=== PATIENT | female | born 1950 | race Caucasian/White ===

== ENCOUNTER 2016-12-04 11:50 | Emergency (ER) | payer OTHER ==
[~2016-12-04] VITALS: Ht 170.2 cm; Wt 123.7 kg
[~2016-12-04 11:50] MED LIST: FLUT0.15 NAE; FURO20TA PO; LAMO100T16 PO; LORA-741 PO; METO5TAB2 PO; ONDA4TAB10 PO; PANT40TA PO; POTA20TA13 PO; RANI-316 PO; ROPI1TAB PO; TPM100 PO
[2016-12-04 11:52] VITALS: TEMP 37; Ht 170.2 cm; Wt 123.7 kg
[2016-12-04] MEDS ORDERED: ONDANSETRON INJ 2 MG/ML 2 ML VIAL IV STA ×2 (12:25→12:43)
[2016-12-04 12:42] LABS: BASO % 0.5 %; BASO ABS # 0.04 K/uL (0-0.2); COMPLETE YES; EOS % 3.6 %; HEMATOCRIT 36.5 % (37-47); IG% 0.2 %; LYMPH % 20.2 %; LYMPH ABS # 1.64 K/uL (1.2-3.4); MEAN CELL VOLUME 86.1 fL (80-100); MEAN CORPUSCULAR HEMOGLOBIN 28.8 pg (25-34); MEAN CORPUSCULAR HGB CONC 33.4 g/dl (32-36); MEAN PLATELET VOLUME 10.8 fL (7.4-10.4); MONO % 8.3 %; NEUT % 67.2 %; PLATELET COUNT 204 K/uL (130-400); RED BLOOD COUNT 4.24 M/uL (4.2-5.4); WHITE BLOOD COUNT 8.11 K/uL (4.8-10.8)
[2016-12-04] MEDS ORDERED: SODIUM CHLORIDE 0.9% 1000ML 1,000 ML IV STA (12:43)
[2016-12-04] MEDS ORDERED: SODIUM CHLORIDE 0.9% 500ML 500 ML IV STA (12:43)
[2016-12-04] MEDS ORDERED: MoRPHine SULFATE 4 MG/ML 1 ML CARP\\VIAL IV PRN (12:45)
[2016-12-04 12:50] LABS: INR 1.1 (0.9-1.1); PARTIAL THROMBOPLASTIN RATIO 1.2; PROTHROMBIN TIME (PATIENT) 11.4 SECONDS (9.0-12.0)
[2016-12-04 12:51] LABS: BUN/CREATININE RATIO 11.3 (10-20); CALCIUM 8.8 mg/dl (8.5-10.1); CREATININE 1.4 mg/dl (0.60-1.20); POTASSIUM 3.5 mmol/L (3.5-5.1)
[2016-12-04 12:56] LABS: ALB/GLOB RATIO 1.3 (0.9-2)
--- NOTE | 2016-12-04 13:21 | DIAGNOSTIC IMAGING REPORT ---
CHEST ONE VIEW PORTABLE CLINICAL HISTORY: Shortness of breath. COMPARISON STUDY: Chest radiograph May 31, 2015. FINDINGS: There is an anterior cervical spine fusion. Upper abdominal surgical clips are noted. A hiatal hernia is suspected. Mild cardiomegaly is unchanged. There is no pneumothorax or pleural effusion. There is no evidence of pulmonary edema. IMPRESSION: 1. No acute findings. 2. Stable cardiomegaly. 3. Suspected hiatal hernia. 4. Mild interstitial thickening which is likely chronic. Electronically signed by: Hair Green M.D. 12/04/2016 1:19 PM Dictated Date/Time: 12/04/2016 1:17 PM
--- NOTE | 2016-12-04 13:52 | DIAGNOSTIC IMAGING REPORT ---
CT OF THE ABDOMEN AND PELVIS WITHOUT CONTRAST CLINICAL HISTORY: Abdominal pain. Blood in stool. Possible bowel obstruction. COMPARISON STUDY: Abdominal ultrasound August 12, [address] of the abdomen and pelvis December 29, 2014. TECHNIQUE: Axial images of the abdomen and pelvis were obtained without IV contrast. Images were reviewed in the axial, sagittal, and coronal planes. FINDINGS: The heart is moderately enlarged. A moderate sized hiatal hernia is noted. There are postsurgical findings within the upper abdomen. Evaluation of the abdomen and pelvis is suboptimal on this unenhanced exam. Unenhanced images of the liver, spleen, adrenal glands and pancreas are unremarkable. A 5 cm intermediate attenuation right renal lesion was shown to represent a cyst on prior ultrasound. A suspected 1.3 cm inferior right hepatic lobe cyst is unchanged. This is suboptimally assessed on this unenhanced exam. There is no evidence for a bowel obstruction. Apparent partial congenital malrotation is noted. There is no significant bowel obstruction. Multiple fat and fluid containing ventral hernias are present. These are shown on prior exam. There are post surgical finding within the spine. No suspicious osseous lesions are present. There is no lymphadenopathy. The gallbladder surgically absent. There is no significant biliary or pancreatic ductal dilatation. There is a moderate amount of stool within the right colon. IMPRESSION: 1. No acute process within the abdomen or pelvis although evaluation is compromised given the lack of IV and oral contrast. 2. Numerous fat and fluid containing ventral hernias which were shown on prior exam. No bowel obstruction. 3. Moderate sized hiatal hernia. Electronically signed by: Hair Green M.D. 12/04/2016 1:50 PM Dictated Date/Time: 12/04/2016 1:40 PM
[2016-12-04] MEDS ORDERED: HYDROmorphone INJ 2 MG/ML SYR/VIAL IV STA (14:10)
[2016-12-04] MEDS ORDERED: HYDROmorphone INJ 0.5 MG/0.5 ML SYR ONE ×2 (14:12→14:51)
[2016-12-04 14:56] VITALS: BP 133/90; PULSE 72; O2SAT 97
[2016-12-04] MEDS ORDERED: OXYC1TAB3 PO (15:21)
--- NOTE | 2016-12-04 16:56 | EMERGENCY ROOM VISIT NOTE ---
History Report prepared by Chiara: Samara Nuno Under the Supervision of: Dr. Xu Garcia M.D. First contact with patient: 12:39 Chief Complaint: GI ASSESSMENT Stated Complaint: BLOOD IN STOOL, STOMACH PAIN Nursing Triage Summary: pt reports noted BRB from rectum with BM on sat. pt reports started with abdominal pain at that time and this cont. denies NV History of Present Illness The patient is a 66 year old female who presents to the Emergency Room for evaluation after experiencing a movement of bright red blood after having a bowel movement 3 days prior to arrival. At the time of onset, the patient had just passed a bowel movement, consisting of regular brown stool, followed by a movement of bright red blood. Since that time, she has been experiencing constant pain to her midabdomen, which she rates as an 8/10. She has also felt nauseous, but she denies vomiting and she has not had any fevers, chills or dysuria. Since passing one movement of blood per rectum 3 days prior, patient states that she has been able to move her bowels 2 more times with regular, brown stool, and no further bleeding. However, as she has continued to experience the abdominal pain and nausea, she came to the ED for further evaluation. Patient denies recent fevers, chills, cough, chest pain, shortness of breath, or urinary symptoms. Patient is not currently on any blood thinning medications. She does take Protonix and Ranitidine HCl regularly. Source of History: patient Onset: 3 days prior to arrival Position: abdomen Symptom Intensity: 8/10 Timing: other (persistent) Associated Symptoms: + hematochezia, + nausea, No SOB, No chest pain, No chills, No diarrhea, No fevers, No urinary symptoms, No vomiting Review of Systems See HPI for pertinent positives & negatives. A total of 10 systems reviewed and were otherwise negative. 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 (16) Fall (17) Fracture of rib with routine healing (18) Gastroesophageal reflux disease (19) Gout (20) Hip pain (21) History of recent fall (22) Hyperlipidemia (23) Migraine (24) Neck pain (25) Rectal bleeding (26) renal insufficiency (27) Rib fractures (28) Seizure (29) Spinal stenosis (30) Sprain of knee (31) Status post fall (32) Unexplained night sweats Surgical Problems: (1) back surgery (2) Cholecystectomy (3) Hysterectomy (4) neck surgery Family History Cancer FHx: neurologic disorder Heart disease Hypertension Kidney disease Other kidney diseases Seizures Social History Smoking Status: Never Smoker Alcohol Use: none Drug Use: none Marital Status: single Housing Status: lives alone Occupation Status: retired Current/Historical Medications Scheduled Apixaban (Eliquis), 5 MG PO BID Docusate Sodium (Ra Col-Rite), 100 MG PO BID Furosemide (Lasix), 20 MG PO QAM Lamotrigine (Lamictal), 200 MG PO BID Lamotrigine (Lamotrigine), 100 MG PO BID Levetiractam (Levetiracetam), 500 MG PO BID Magnesium Oxide (Mag-Ox), 400 MG PO BID Metoclopramide Hcl (Metoclopramide Hcl), 5 MG PO BID Metoprolol Succinate (Metoprolol Succinate ER), 25 MG PO DAILY Multivitamin (Multivitamin), 1 TAB PO DAILY Pantoprazole Sodium (Protonix), 40 MG PO BID Potassium Chloride Microencaps (Potassium Chloride Er), 20 MEQ PO DAILY Ranitidine HCl (Ranitidine HCl), 150 MG PO DAILY Sulfa/Trimethoprim (Bactrim Ds 800MG/160MG), 1 TAB PO DAILY Topiramate (Topiramate), 100 MG PO BID Scheduled PRN Albuterol Hfa (Ventolin Hfa), 2 PUFFS PO UD PRN for SOB/Wheezing Albuterol Sulf (Proventil 0.083% 2.5MG/3ML), 1 DOSE NEB UD PRN for SOB/Wheezing Lorazepam (Ativan), 0.5 MG PO TID PRN for Anxiety Oxycodone Ir (Roxicodone Ir), 1-2 TAB PO Q4H PRN for Pain Allergies Coded Allergies: Adhesives (Verified Adverse Reaction, Unknown, ITCHY, 12/04/16) Physical Exam Vital Signs Date Time Temp Pulse Resp B/P Pulse Ox O2 Delivery O2 Flow Rate FiO2 12/04/16 14:56 72 18 133/90 97 Room Air 12/04/16 13:09 68 20 146/96 100 12/04/16 12:26 79 12/04/16 12:20 85 18 146/96 99 Room Air 12/04/16 11:52 37.0 98 18 183/95 95 Room Air Physical Exam GENERAL: Patient is in no acute distress. HEENT: No acute trauma, normocephalic atraumatic, mucous membranes moist, no nasal congestion, no scleral icterus. NECK: No stridor, no adenopathy, no meningismus, trachea is midline. LUNGS: Clear to auscultation bilaterally, no wheeze, no rhonchi, breath sounds equal. HEART: Irregular without any murmurs. Normal rate. ABDOMEN: Distended, soft, no peritonitis. There is a reducible umbilical hernia present. Tender in the epigastric area. Bowel sounds positive. RECTAL: Brown stool, heme positive. EXTREMITIES: No cyanosis or edema, full range of motion of all the joints without pain or difficulty, no signs for acute trauma. NEUROLOGIC: Oriented x 3, no acute motor or sensory deficits, no focal weakness. SKIN: No rash, no jaundice, no diaphoresis. Medical Decision & Procedures ER Provider Diagnostic Interpretation: X-ray results as stated below per interpretation by me and the radiologist: CHEST ONE VIEW PORTABLE CLINICAL HISTORY: Shortness of breath. COMPARISON STUDY: Chest radiograph May 31, 2015. FINDINGS: There is an anterior cervical spine fusion. Upper abdominal surgical clips are noted. A hiatal hernia is suspected. Mild cardiomegaly is unchanged. There is no pneumothorax or pleural effusion. There is no evidence of pulmonary edema. IMPRESSION: 1. No acute findings. 2. Stable cardiomegaly. 3. Suspected hiatal hernia. 4. Mild interstitial thickening which is likely chronic. Electronically signed by: Hair Green M.D. 12/04/2016 1:19 PM Dictated Date/Time: 12/04/2016 1:[address] OF THE ABDOMEN AND PELVIS WITHOUT CONTRAST CLINICAL HISTORY: Abdominal pain. Blood in stool. Possible bowel obstruction. COMPARISON STUDY: Abdominal ultrasound August 12, [address] of the abdomen and pelvis December 29, 2014. TECHNIQUE: Axial images of the abdomen and pelvis were obtained without IV contrast. Images were reviewed in the axial, sagittal, and coronal planes. FINDINGS: The heart is moderately enlarged. A moderate sized hiatal hernia is noted. There are postsurgical findings within the upper abdomen. Evaluation of the abdomen and pelvis is suboptimal on this unenhanced exam. Unenhanced images of the liver, spleen, adrenal glands and pancreas are unremarkable. A 5 cm intermediate attenuation right renal lesion was shown to represent a cyst on prior ultrasound. A suspected 1.3 cm inferior right hepatic lobe cyst is unchanged. This is suboptimally assessed on this unenhanced exam. There is no evidence for a bowel obstruction. Apparent partial congenital malrotation is noted. There is no significant bowel obstruction. Multiple fat and fluid containing ventral hernias are present. These are shown on prior exam. There are post surgical finding within the spine. No suspicious osseous lesions are present. There is no lymphadenopathy. The gallbladder surgically absent. There is no significant biliary or pancreatic ductal dilatation. There is a moderate amount of stool within the right colon. IMPRESSION: 1. No acute process within the abdomen or pelvis although evaluation is compromised given the lack of IV and oral contrast. 2. Numerous fat and fluid containing ventral hernias which were shown on prior exam. No bowel obstruction. 3. Moderate sized hiatal hernia. Electronically signed by: Hair Green M.D. 12/04/2016 1:50 PM Dictated Date/Time: 12/04/2016 1:40 PM Laboratory Results 12/04/16 12:15 Red Blood Count 4.24, Mean Corpuscular Volume 86.1, Mean Corpuscular Hemoglobin 28.8, Mean Corpuscular Hemoglobin Concent 33.4, Mean Platelet Volume 10.8, Neutrophils (%) (Auto) 67.2, Lymphocytes (%) (Auto) 20.2, Monocytes (%) (Auto) 8.3, Eosinophils (%) (Auto) 3.6, Basophils (%) (Auto) 0.5, Neutrophils # (Auto) 5.45, Lymphocytes # (Auto) 1.64, Monocytes # (Auto) 0.67, Eosinophils # (Auto) 0.29, Basophils # (Auto) 0.04 12/04/16 12:15 Test 12/04/16 12:15 White Blood Count 8.11 K/uL (4.8-10.8) Red Blood Count 4.24 M/uL (4.2-5.4) Hemoglobin 12.2 g/dL (12.0-16.0) Hematocrit 36.5 % (37-47) Mean Corpuscular Volume 86.1 fL (80-100) Mean Corpuscular Hemoglobin 28.8 pg (25-34) Mean Corpuscular Hemoglobin Concent 33.4 g/dl (32-36) Platelet Count 204 K/uL (130-400) Mean Platelet Volume 10.8 fL (7.4-10.4) Neutrophils (%) (Auto) 67.2 % Lymphocytes (%) (Auto) 20.2 % Monocytes (%) (Auto) 8.3 % Eosinophils (%) (Auto) 3.6 % Basophils (%) (Auto) 0.5 % Neutrophils # (Auto) 5.45 K/uL (1.4-6.5) Lymphocytes # (Auto) 1.64 K/uL (1.2-3.4) Monocytes # (Auto) 0.67 K/uL (0.11-0.59) Eosinophils # (Auto) 0.29 K/uL (0-0.5) Basophils # (Auto) 0.04 K/uL (0-0.2) RDW Standard Deviation 45.0 fL (36.4-46.3) RDW Coefficient of Variation 14.4 % (11.5-14.5) Immature Granulocyte % (Auto) 0.2 % Immature Granulocyte # (Auto) 0.02 K/uL (0.00-0.02) Prothrombin Time 11.4 SECONDS (9.0-12.0) Prothromb Time International Ratio 1.1 (0.9-1.1) Activated Partial Thromboplast Time 31.0 SECONDS (21.0-31.0) Partial Thromboplastin Ratio 1.2 Anion Gap 11.0 mmol/L (3-11) Est Creatinine Clear Calc Drug Dose 53.2 ml/min Estimated GFR () 44.9 Estimated GFR (Non- 38.8 BUN/Creatinine Ratio 11.3 (10-20) Calcium Level 8.8 mg/dl (8.5-10.1) Total Bilirubin 0.4 mg/dl (0.2-1) Aspartate Amino Transf (AST/SGOT) 9 U/L (15-37) Alanine Aminotransferase (ALT/SGPT) 15 U/L (12-78) Alkaline Phosphatase 104 U/L (45-117) Total Creatine Kinase 97 U/L (26-192) Creatine Kinase MB 1.9 ng/ml (0.5-3.6) Creatine Kinase MB Ratio 2.0 (0-3.0) Total Protein 7.4 gm/dl (6.4-8.2) Albumin 4.2 gm/dl (3.4-5.0) Globulin 3.2 gm/dl (2.5-4.0) Albumin/Globulin Ratio 1.3 (0.9-2) Lipase 223 U/L (73-393) Laboratory results reviewed by me. Medications Administered Medications (Trade) Dose Ordered Sig/Galileo Route Start Time Stop Time Status Last Admin Dose Admin Ondansetron HCl (Zofran Inj) 4 mg NOW STAT IV 12/04/16 12:25 12/04/16 12:30 DC 12/04/16 13:06 4 MG Morphine Sulfate 4 mg 4 mg Q15M PRN IV 12/04/16 12:45 12/04/16 16:15 DC 12/04/16 13:07 4 MG Sodium Chloride 500 ml @ 999 mls/hr Q31M STAT IV 12/04/16 12:43 12/04/16 13:13 DC 12/04/16 13:07 999 MLS/HR Sodium Chloride (Nss 1000ml) 1,000 ml @ 125 mls/hr Q8H STAT IV 12/04/16 12:43 12/04/16 16:15 DC 12/04/16 13:06 125 MLS/HR Hydromorphone HCl (Dilaudid Inj) 0.5 mg STK-MED ONCE .ROUTE 12/04/16 14:12 12/04/16 14:13 DC 12/04/16 14:12 0.5 MG Hydromorphone HCl (Dilaudid Inj) 0.5 mg STK-MED ONCE .ROUTE 12/04/16 14:51 12/04/16 14:52 DC 12/04/16 14:54 0.5 MG ECG Indication: abdominal pain Rate (beats per minute): 93 Rhythm: atrial fibrillation Findings: no acute ischemic change, no ectopy, other (Non-specific T wave change) ED Course 1240: The patient was evaluated in room B5. A complete history and physical exam was performed. 1225: Zofran 4 mg IV was ordered. 1243: NSS 1,000 ml @ 125 mls/hr IV, NSS 500 ml @ 999 mls/hr IV and Zofran 4 mg IV were ordered. 1245: Morphine Sulfate 4 mg IV was ordered. 1410: Upon reevaluation, the patient was having additional pain. Dilaudid 0.5 mg IV and Dilaudid 0.5 mg Route were ordered. 1451: Patient was still experiencing pain at this time. Dilaudid 0.5 mg Route was ordered. 1515: I reevaluated the patient at this time and she was feeling improved. She did not complain of any additional pain. I updated her on the results of her radiology reports and lab tests. Discharge instructions were also discussed. She verbalized her understanding and agreement with the treatment plan, and she is now ready for disposition. Medical Decision The patient is a 66 year old female who presents to the ED for evaluation after experiencing a movement of bright red blood per rectum 3 days prior to arrival. Differential diagnoses considered include hemorrhoid or anal tear, lower GI or upper GI bleeding, anemia, electrolyte imbalance, bowel obstruction, pancreatitis, diverticulitis, and viral illness. There is no leukocytosis or worrisome anemia. No significant electrolyte abnormality, kidney failure, hepatitis or pancreatitis. EKG shows A. fib, no acute ischemia. There is no coagulopathy. Chest x-ray does not show pneumonia or CHF, there is no free air. Abdominal and pelvis CT shows some chronic findings, there was no bowel obstruction or acute surgical pathology. The patient received IV saline, IV morphine and IV Dilaudid. She received IV Zofran for nausea. The patient is feeling improved. On rectal exam, her stool is brown, a trace heme positive result returned. No bright red blood was noted. The patient was adamant that she was not staying in the hospital. She felt better, she wanted to be discharged home. As she is hemodynamically stable, I do think this is reasonable. The patient was encouraged to return to the ER for any return of symptoms or worsening pain. She will return for fever or vomiting. Outpatient family doctor follow-up was suggested. [place] Drug Monitoring Program Search Results: patient reviewed within database, no issues identified Impression Primary Impression: Epigastric abdominal pain Additional Impression: Bloody stool Scribe Attestation The scribe's documentation has been prepared under my direction and personally reviewed by me in its entirety. I confirm that the note above accurately reflects all work, treatment, procedures, and medical decision making performed by me. Departure Information Dispostion Home / Self-Care Prescriptions Oxycodone Ir (Roxicodone Ir) 5 Mg Tab 1-2 TAB PO Q4H Y for Pain, #12 TAB Prov: Xu Garcia M.D. 12/04/16 Referrals No Doctor, Assigned (PCP) Forms HOME CARE DOCUMENTATION FORM, IMPORTANT VISIT INFORMATION Patient Instructions My [facility] Additional Instructions slowly advance the diet crackers, toast, soup, gatorade use oxy ir 1 tab every 4 hours for more severe pain see danish salcedo this week for a recheck return for worsening pain, vomiting or fever as we discussed lab testing and imaging today were ok Problem Qualifiers
[2016-12-05] MEDS ORDERED: LEVE500T PO (04:19)
[2016-12-05] MEDS ORDERED: LAMO200T38 PO (04:19)
[2016-12-05] MEDS ORDERED: LAMO1TAB21 PO (04:19)
[2016-12-05] MEDS ORDERED: PANT40TA PO (04:21)
[2016-12-05] MEDS ORDERED: RANI150T2 PO (04:24)
[2016-12-05] MEDS ORDERED: TPRSR/25 PO (04:26)
[2016-12-05] MEDS ORDERED: ALBINS/ NEB (04:29)
[2016-12-05] MEDS ORDERED: APIX1TAB3 PO (04:29)
[2016-12-05] MEDS ORDERED: VNTHFA/IN PO (04:29)
[2016-12-05] MEDS ORDERED: LORA-741 PO (04:34)
[2016-12-05] MEDS ORDERED: MAGN400T6 PO (04:34)
[2016-12-05] MEDS ORDERED: SULF800T23 PO (04:35)
[2016-12-05] MEDS ORDERED: MULT-506 PO (04:36)
[2016-12-05] MEDS ORDERED: DOCU-149 PO (04:36)
[2017-01-05] MEDS ORDERED: Estrace (07:21)
[2017-01-05] MEDS ORDERED: [UNRECOGNIZED DRUG - CODE] PO (07:21)
[2017-01-05] MEDS ORDERED: LAMO100T16 PO (07:21)
[2017-01-05] MEDS ORDERED: DOCU-94 PO (07:21)
[2017-01-05] MEDS ORDERED: ALBU18002 INH (07:21)
[2017-05-29] MEDS ORDERED: FLUT0.15 NAE (14:46)
[2017-05-29] MEDS ORDERED: FERR1TAB13 PO (14:46)
[2017-05-29] MEDS ORDERED: VOLTAREN GEL TOP (14:46)
[2017-05-29] MEDS ORDERED: LAMO200T38 PO (14:46)
[2017-05-29] MEDS ORDERED: ATRIN INH (14:46)
[2017-07-02] MEDS ORDERED: MULT-1042 PO (00:01)
[2017-07-02] MEDS ORDERED: SENN-65 PO (00:02)
[2017-07-04] MEDS ORDERED: CEPH500C PO (13:08)
[2017-07-04] MEDS ORDERED: HYDR-4079 PO (13:08)
[2017-07-04] MEDS ORDERED: SULF800T23 PO (18:32)
[2017-08-16] MEDS ORDERED: LORA-741 PO (17:23)
[2017-08-16] MEDS ORDERED: FURO20TA PO (17:23)
[2017-08-16] MEDS ORDERED: DOCU-94 PO (17:23)
[2017-08-16] MEDS ORDERED: FERR1TAB13 PO (17:23)
[2017-08-16] MEDS ORDERED: METO5TAB2 PO (17:23)
[2017-08-16] MEDS ORDERED: VNTHFA/IN PO (17:23)
[2017-08-16] MEDS ORDERED: TPRSR/25 PO (17:23)
[2017-08-16] MEDS ORDERED: PANT40TA PO (17:23)
[2017-08-16] MEDS ORDERED: TPM100 PO (17:23)
[2017-08-16] MEDS ORDERED: APIX1TAB3 PO (17:23)
[2017-08-16] MEDS ORDERED: LEVE500T PO (17:23)
[2017-08-16] MEDS ORDERED: LAMO100T16 PO (17:23)
[2017-08-16] MEDS ORDERED: FLUT0.15 NAE (17:23)
[2017-08-16] MEDS ORDERED: POTA20TA13 PO (17:23)
[2017-08-16] MEDS ORDERED: SULF800T23 PO (17:23)
[2017-08-16] MEDS ORDERED: IPRA0.03 NAE (17:23)
[2017-08-16] MEDS ORDERED: LAMO200T38 PO (17:23)
== END 2016-12-04 15:42 | disposition home or self-care (01) ==
LOC: C.EDB 11:51
DX: R10.13 Epigastric pain (principal); K92.1 Melena; J45.909 Unspecified asthma, uncomplicated; I10 Essential (primary) hypertension; M17.10 Unilateral primary osteoarthritis, unspecified knee; K21.9 Gastro-esophageal reflux disease without esophagitis; Z91.81 History of falling; Z86.69 Personal history of other diseases of the nervous system and sense organs; Z90.710 Acquired absence of both cervix and uterus; Z90.49 Acquired absence of other specified parts of digestive tract; Z82.49 Family history of ischemic heart disease and other diseases of the circulatory system; Z82.0 Family history of epilepsy and other diseases of the nervous system; Z79.899 Other long term (current) drug therapy

== ENCOUNTER 2016-12-05 02:26 | Emergency (ER) | payer OTHER ==
[~2016-12-05] VITALS: Ht 170.2 cm; Wt 125.6 kg
[~2016-12-05 02:26] MED LIST changes: +OXYC1TAB3 PO
[2016-12-05 02:34] VITALS: TEMP 36.8; Ht 170.2 cm; Wt 125.6 kg
[2016-12-05] MEDS ORDERED: HYDROmorphone HCL 4 MG/ML SYR IM STA (03:06)
--- NOTE | 2016-12-05 03:13 | EMERGENCY ROOM VISIT NOTE ---
History Report prepared by Chiara: Mandy White Under the Supervision of: Dr. Chandni Adams D.O. First contact with patient: 02:31 Chief Complaint: HEADACHE Stated Complaint: HEADACHE, NAUSEA, SINUS PRESSURE History of Present Illness The patient is a 66 year old female who presents to the Emergency Room with complaints of a constant headache beginning tonight. The patient states that she is having throbbing pain in her head with nausea, chills, and abdominal pain. She reports that she was seen here earlier for abdominal pain and rectal bleeding. She notes that she did not eat anything when she got home and drank some water but she was feeling nauseous so she did not drink much. The patient notes that she did not want to be admitted earlier and does not want to be admitted now. She states that she was prescribed oxycodone but did not pick it up today at the pharmacy. Source of History: patient Onset: tonight Position: head Quality: other (throbbing) Timing: constant Associated Symptoms: + abdominal pain, + chills, + nausea Review of Systems See HPI for pertinent positives & negatives. A total of 10 systems reviewed and were otherwise negative. 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 (16) Fall (17) Fracture of rib with routine healing (18) Gastroesophageal reflux disease (19) Gout (20) Hip pain (21) History of recent fall (22) Hyperlipidemia (23) Migraine (24) Neck pain (25) Rectal bleeding (26) renal insufficiency (27) Rib fractures (28) Seizure (29) Spinal stenosis (30) Sprain of knee (31) Status post fall (32) Unexplained night sweats Surgical Problems: (1) back surgery (2) Cholecystectomy (3) Hysterectomy (4) neck surgery Family History Cancer FHx: neurologic disorder Heart disease Hypertension Kidney disease Other kidney diseases Seizures Social History Smoking Status: Never Smoker Alcohol Use: none Drug Use: none Marital Status: single Housing Status: lives alone Occupation Status: retired Current/Historical Medications Scheduled Apixaban (Eliquis), 5 MG PO BID Docusate Sodium (Ra Col-Rite), 100 MG PO BID Furosemide (Lasix), 20 MG PO QAM Lamotrigine (Lamictal), 200 MG PO BID Lamotrigine (Lamotrigine), 100 MG PO BID Levetiractam (Levetiracetam), 500 MG PO BID Magnesium Oxide (Mag-Ox), 400 MG PO BID Metoclopramide Hcl (Metoclopramide Hcl), 5 MG PO BID Metoprolol Succinate (Metoprolol Succinate ER), 25 MG PO DAILY Multivitamin (Multivitamin), 1 TAB PO DAILY Pantoprazole Sodium (Protonix), 40 MG PO BID Potassium Chloride Microencaps (Potassium Chloride Er), 20 MEQ PO DAILY Ranitidine HCl (Ranitidine HCl), 150 MG PO DAILY Sulfa/Trimethoprim (Bactrim Ds 800MG/160MG), 1 TAB PO DAILY Topiramate (Topiramate), 100 MG PO BID Scheduled PRN Albuterol Hfa (Ventolin Hfa), 2 PUFFS PO UD PRN for SOB/Wheezing Albuterol Sulf (Proventil 0.083% 2.5MG/3ML), 1 DOSE NEB UD PRN for SOB/Wheezing Lorazepam (Ativan), 0.5 MG PO TID PRN for Anxiety Oxycodone Ir (Roxicodone Ir), 1-2 TAB PO Q4H PRN for Pain Allergies Coded Allergies: Adhesives (Verified Adverse Reaction, Unknown, ITCHY, 12/04/16) Physical Exam Vital Signs Date Time Temp Pulse Resp B/P Pulse Ox O2 Delivery O2 Flow Rate FiO2 12/05/16 05:09 61 18 101/75 97 Room Air 12/05/16 03:49 68 18 136/64 97 Room Air 12/05/16 02:34 36.8 66 18 159/63 99 Room Air Physical Exam HEENT: Head - normocephalic and atraumatic Pupils are equal, round, and reactive to light. Extraocular eye muscles are intact, and sclera are anicteric. Nose - moist nasal mucosa without discharge. Mouth - moist buccal mucosa. Oropharynx is nonerythematous and there is no tonsillar exudate or edema noted. Neck: Supple; no JVD, nuchal rigidity, cervical lymphadenopathy. Heart: Regular rate and rhythm. There is a normal S1 and S2 with no murmurs, clicks, or gallops appreciated. Lungs: Clear to auscultation bilaterally with no wheezes, rales, or rhonchi. Abdomen: Soft, slightly tender, nondistended, with good bowel sounds. There is no hepatosplenomegaly. There is no guarding, rigidity, or rebound noted. Multiple palpable ventral hernias. Extremities: No evidence of cyanosis, clubbing, or edema. There are easily palpable peripheral pulses. Skin: warm and dry with good turgor and no rashes. Medical Decision & Procedures Medications Administered Medications (Trade) Dose Ordered Sig/Galileo Route Start Time Stop Time Status Last Admin Dose Admin Ondansetron HCl (Zofran Odt) 4 mg ONE ONCE PO 12/05/16 03:15 12/05/16 03:16 DC 12/05/16 03:30 4 MG Hydromorphone HCl (Dilaudid Inj) 2 mg NOW STAT IM 12/05/16 03:19 12/05/16 03:20 DC 12/05/16 03:30 2 MG Procedure 0306: Dilaudid Inj 4mg IM. 0315: Zofran Odt 4mg PO. 0319: Dilaudid Inj 2mg IM. ED Course 0237: Past medical records reviewed. The patient was evaluated in room B10. A complete history and physical exam was performed. 0306: Dilaudid Inj 4mg IM. 0315: Zofran Odt 4mg PO. 0319: Dilaudid Inj 2mg IM. 0417: I reevaluated the patient. She feels much better and would like to go home. 0446: Upon reevaluation, the patient is hemodynamically stable. I discussed findings and results with the patient. She verbalized agreement of the treatment plan. The patient was discharged home. Medical Decision The patient is a 66 year old female who presents to the ED with a headache. Differential diagnosis includes sinus headache, tension headache, migraine. The patient describes a headache of her forehead and behind her eyes. This seemed to worsen throughout the day today since she was discharged from the emergency department earlier today. She has not been eating very much because she has felt nauseous secondary to her abdominal pain and rectal bleeding. However, she has been drinking water. The patient was prescribed oxycodone to use for the abdominal pain but did not make it to the pharmacy to pick this prescription up. The patient received a dose of IM Dilaudid here in the emergency department along with some Zofran ODT. This gave significant relief to the patient's symptoms. She was anxious to go home and sleep. She was going to get the prescription picked up today and follow-up with her PCP with regards to the GI bleeding. Impression Primary Impression: Headache Scribe Attestation The scribe's documentation has been prepared under my direction and personally reviewed by me in its entirety. I confirm that the note above accurately reflects all work, treatment, procedures, and medical decision making performed by me. Departure Information Dispostion Home / Self-Care Referrals Marcelo Escoto M.D. (PCP) Forms HOME CARE DOCUMENTATION FORM, IMPORTANT VISIT INFORMATION Patient Instructions My [facility] Additional Instructions Rest. Follow up closely with PCP for GI bleeding and abdominal pain You may use the oxycodone provided earlier when you get it from the pharmacy Problem Qualifiers Primary Impression: Headache Headache type: tension-type
[2016-12-05] MEDS ORDERED: ONDANSETRON 4MG OD TAB PO ONE (03:15)
[2016-12-05] MEDS ORDERED: HYDROmorphone INJ 2 MG/ML SYR/VIAL IM STA (03:19)
[2016-12-05] MEDS ORDERED: LEVE500T PO (04:19)
[2016-12-05] MEDS ORDERED: LAMO200T38 PO (04:19)
[2016-12-05] MEDS ORDERED: LAMO1TAB21 PO (04:19)
[2016-12-05] MEDS ORDERED: PANT40TA PO (04:21)
[2016-12-05] MEDS ORDERED: RANI150T2 PO (04:24)
[2016-12-05] MEDS ORDERED: TPRSR/25 PO (04:26)
[2016-12-05] MEDS ORDERED: VNTHFA/IN PO (04:29)
[2016-12-05] MEDS ORDERED: APIX1TAB3 PO (04:29)
[2016-12-05] MEDS ORDERED: ALBINS/ NEB (04:29)
[2016-12-05] MEDS ORDERED: LORA-741 PO (04:34)
[2016-12-05] MEDS ORDERED: MAGN400T6 PO (04:34)
[2016-12-05] MEDS ORDERED: SULF800T23 PO (04:35)
[2016-12-05] MEDS ORDERED: MULT-506 PO (04:36)
[2016-12-05] MEDS ORDERED: DOCU-149 PO (04:36)
[2016-12-05 06:21] VITALS: BP 110/77; PULSE 64; O2SAT 99
[2017-01-05] MEDS ORDERED: Estrace (07:21)
[2017-01-05] MEDS ORDERED: LAMO100T16 PO (07:21)
[2017-01-05] MEDS ORDERED: ALBU18002 INH (07:21)
[2017-01-05] MEDS ORDERED: [UNRECOGNIZED DRUG - CODE] PO (07:21)
[2017-01-05] MEDS ORDERED: DOCU-94 PO (07:21)
[2017-05-29] MEDS ORDERED: FERR1TAB13 PO (14:46)
[2017-05-29] MEDS ORDERED: ATRIN INH (14:46)
[2017-05-29] MEDS ORDERED: FLUT0.15 NAE (14:46)
[2017-05-29] MEDS ORDERED: VOLTAREN GEL TOP (14:46)
[2017-05-29] MEDS ORDERED: LAMO200T38 PO (14:46)
[2017-07-02] MEDS ORDERED: MULT-1042 PO (00:01)
[2017-07-02] MEDS ORDERED: SENN-65 PO (00:02)
[2017-07-04] MEDS ORDERED: HYDR-4079 PO (13:08)
[2017-07-04] MEDS ORDERED: CEPH500C PO (13:08)
[2017-07-04] MEDS ORDERED: SULF800T23 PO (18:32)
[2017-08-16] MEDS ORDERED: APIX1TAB3 PO (17:23)
[2017-08-16] MEDS ORDERED: POTA20TA13 PO (17:23)
[2017-08-16] MEDS ORDERED: SULF800T23 PO (17:23)
[2017-08-16] MEDS ORDERED: METO5TAB2 PO (17:23)
[2017-08-16] MEDS ORDERED: TPM100 PO (17:23)
[2017-08-16] MEDS ORDERED: LAMO100T16 PO (17:23)
[2017-08-16] MEDS ORDERED: LEVE500T PO (17:23)
[2017-08-16] MEDS ORDERED: FERR1TAB13 PO (17:23)
[2017-08-16] MEDS ORDERED: FURO20TA PO (17:23)
[2017-08-16] MEDS ORDERED: FLUT0.15 NAE (17:23)
[2017-08-16] MEDS ORDERED: IPRA0.03 NAE (17:23)
[2017-08-16] MEDS ORDERED: LAMO200T38 PO (17:23)
[2017-08-16] MEDS ORDERED: PANT40TA PO (17:23)
[2017-08-16] MEDS ORDERED: VNTHFA/IN PO (17:23)
[2017-08-16] MEDS ORDERED: LORA-741 PO (17:23)
[2017-08-16] MEDS ORDERED: TPRSR/25 PO (17:23)
[2017-08-16] MEDS ORDERED: DOCU-94 PO (17:23)
== END 2016-12-05 06:21 | disposition home or self-care (01) ==
LOC: EDBD 02:26 → C.EDB 02:26
DX: R51 Headache (principal); J45.909 Unspecified asthma, uncomplicated; I10 Essential (primary) hypertension; K21.9 Gastro-esophageal reflux disease without esophagitis; M10.9 Gout, unspecified; E78.5 Hyperlipidemia, unspecified

== ENCOUNTER 2016-12-26 02:47 | Emergency (ER) | payer OTHER ==
[~2016-12-26] VITALS: Ht 170.2 cm; Wt 126.0 kg
[~2016-12-26 02:47] MED LIST changes: +ALBINS/ NEB; +APIX1TAB3 PO; +DOCU-149 PO; -FLUT0.15 NAE; -LAMO100T16 PO; +LAMO1TAB21 PO; +LAMO200T38 PO; +LEVE500T PO; +MAGN400T6 PO; +MULT-506 PO; -ONDA4TAB10 PO; -RANI-316 PO; +RANI150T2 PO; -ROPI1TAB PO; +SULF800T23 PO; +TPRSR/25 PO; +VNTHFA/IN PO
[2016-12-26 02:58] VITALS: TEMP 36.6; O2SAT 99; Ht 170.2 cm; Wt 126.0 kg
--- NOTE | 2016-12-26 03:05 | EMERGENCY ROOM VISIT NOTE ---
History Report prepared by Chiara: Alis Nickerson Under the Supervision of: Dr. Hector Matos M.D. First contact with patient: 02:51 Chief Complaint: CHEST PAIN Stated Complaint: CHEST PAIN History of Present Illness The patient is a 66 year old female who presents to the Emergency Room with complaints of persistent left sided chest pain starting this morning. She was lying in bed when she had the onset of her pain. The patient also complains of a headache and shortness of breath starting yesterday afternoon. The patient also reports that she was unconscious for an unknown amount of time lying against her computer yesterday afternoon. She is scheduled to have a heart procedure on January 03 for A Fib. She states that she has seizures with Nitroglycerin. She denies fevers, chills or any other complaints. Source of History: patient Onset: this morning Position: chest (left) Timing: other (persistent) Associated Symptoms: + SOB, + headache, No chills, No fevers Review of Systems See HPI for pertinent positives & negatives. A total of 10 systems reviewed and were otherwise negative. 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 (16) Fall (17) Fracture of rib with routine healing (18) Gastroesophageal reflux disease (19) Gout (20) Hip pain (21) History of recent fall (22) Hyperlipidemia (23) Migraine (24) Neck pain (25) Rectal bleeding (26) renal insufficiency (27) Rib fractures (28) Seizure (29) Spinal stenosis (30) Sprain of knee (31) Status post fall (32) Unexplained night sweats Surgical Problems: (1) back surgery (2) Cholecystectomy (3) Hysterectomy (4) neck surgery Family History Cancer FHx: neurologic disorder Heart disease Hypertension Kidney disease Other kidney diseases Seizures Social History Smoking Status: Never Smoker Alcohol Use: none Drug Use: none Marital Status: single Housing Status: lives alone Occupation Status: retired Current/Historical Medications Scheduled Apixaban (Eliquis), 5 MG PO BID Docusate Sodium (Ra Col-Rite), 100 MG PO BID Furosemide (Lasix), 20 MG PO QAM Lamotrigine (Lamictal), 200 MG PO BID Levetiractam (Levetiracetam), 500 MG PO BID Magnesium Oxide (Mag-Ox), 400 MG PO BID Metoclopramide Hcl (Metoclopramide Hcl), 5 MG PO BID Metoprolol Succinate (Metoprolol Succinate ER), 25 MG PO DAILY Multivitamin (Multivitamin), 1 TAB PO DAILY Pantoprazole Sodium (Protonix), 40 MG PO BID Potassium Chloride Microencaps (Potassium Chloride Er), 20 MEQ PO DAILY Ranitidine HCl (Ranitidine HCl), 150 MG PO DAILY Sulfa/Trimethoprim (Bactrim Ds 800MG/160MG), 1 TAB PO DAILY Topiramate (Topiramate), 100 MG PO BID Scheduled PRN Albuterol Hfa (Ventolin Hfa), 2 PUFFS PO UD PRN for SOB/Wheezing Albuterol Sulf (Proventil 0.083% 2.5MG/3ML), 1 DOSE NEB UD PRN for SOB/Wheezing Lorazepam (Ativan), 0.5 MG PO TID PRN for Anxiety Oxycodone Ir (Roxicodone Ir), 1-2 TAB PO Q4H PRN for Severe Pain Allergies Coded Allergies: Adhesives (Verified Adverse Reaction, Unknown, ITCHY, 12/26/16) Physical Exam Vital Signs Date Time Temp Pulse Resp B/P Pulse Ox O2 Delivery O2 Flow Rate FiO2 12/26/16 07:30 66 18 138/80 95 Room Air 12/26/16 06:33 62 12/26/16 05:57 62 16 146/78 98 Room Air 12/26/16 04:48 61 16 134/67 99 Room Air 12/26/16 03:06 66 12/26/16 02:58 99 Room Air 12/26/16 02:58 99 Room Air 12/26/16 02:58 36.6 80 16 155/77 99 Room Air Physical Exam GENERAL: Patient is well appearing and in minimal distress. HEENT: No acute trauma, normocephalic atraumatic, mucous membranes moist, no nasal congestion, no scleral icterus. NECK: No stridor, no adenopathy, no meningismus, trachea is midline. LUNGS: No dyspnea. Clear to auscultation and equal bilaterally. No wheeze, no rhonchi. HEART: Regular rate and rhythm. No murmurs, rubs, gallops appreciated. ABDOMEN: Soft, nontender, bowel sounds positive, no masses appreciated, no peritonitis. BACK: No midline tenderness, no CVA tenderness EXTREMITIES: Normal motion all extremities, no cyanosis, no edema. NEUROLOGIC: Alert and oriented, no acute motor or sensory deficits, no focal weakness, cranial nerves grossly intact. SKIN: No rash, no jaundice, no diaphoresis. Medical Decision & Procedures ER Provider Diagnostic Interpretation: X ray results are stated below per my interpretation: Chest: 1 view: No infiltrate, no effusion, normal cardiac border. No change from previous. CT results as stated below per interpretation by me and the radiologist: CT HEAD No intracranial hemorrhage or mass effect. Radiologist: Severino Recinos MD Laboratory Results 12/26/16 04:47 Red Blood Count 3.84, Mean Corpuscular Volume 86.7, Mean Corpuscular Hemoglobin 27.9, Mean Corpuscular Hemoglobin Concent 32.1, Mean Platelet Volume 11.3, Neutrophils (%) (Auto) 57.4, Lymphocytes (%) (Auto) 29.5, Monocytes (%) (Auto) 8.7, Eosinophils (%) (Auto) 3.5, Basophils (%) (Auto) 0.6, Neutrophils # (Auto) 3.76, Lymphocytes # (Auto) 1.93, Monocytes # (Auto) 0.57, Eosinophils # (Auto) 0.23, Basophils # (Auto) 0.04 12/26/16 04:47 Test 12/26/16 04:47 12/26/16 06:37 White Blood Count 6.55 K/uL (4.8-10.8) Red Blood Count 3.84 M/uL (4.2-5.4) Hemoglobin 10.7 g/dL (12.0-16.0) Hematocrit 33.3 % (37-47) Mean Corpuscular Volume 86.7 fL (80-100) Mean Corpuscular Hemoglobin 27.9 pg (25-34) Mean Corpuscular Hemoglobin Concent 32.1 g/dl (32-36) Platelet Count 145 K/uL (130-400) Mean Platelet Volume 11.3 fL (7.4-10.4) Neutrophils (%) (Auto) 57.4 % Lymphocytes (%) (Auto) 29.5 % Monocytes (%) (Auto) 8.7 % Eosinophils (%) (Auto) 3.5 % Basophils (%) (Auto) 0.6 % Neutrophils # (Auto) 3.76 K/uL (1.4-6.5) Lymphocytes # (Auto) 1.93 K/uL (1.2-3.4) Monocytes # (Auto) 0.57 K/uL (0.11-0.59) Eosinophils # (Auto) 0.23 K/uL (0-0.5) Basophils # (Auto) 0.04 K/uL (0-0.2) RDW Standard Deviation 46.7 fL (36.4-46.3) RDW Coefficient of Variation 14.8 % (11.5-14.5) Immature Granulocyte % (Auto) 0.3 % Immature Granulocyte # (Auto) 0.02 K/uL (0.00-0.02) Anion Gap 12.0 mmol/L (3-11) Est Creatinine Clear Calc Drug Dose 57.9 ml/min Estimated GFR () 49.2 Estimated GFR (Non- 42.4 BUN/Creatinine Ratio 13.0 (10-20) Calcium Level 8.6 mg/dl (8.5-10.1) Total Creatine Kinase 92 U/L (26-192) Creatine Kinase MB 1.5 ng/ml (0.5-3.6) Creatine Kinase MB Ratio 1.6 (0-3.0) Troponin I < 0.015 ng/ml (0-0.045) Laboratory results as reviewed by me. Medications Administered Medications (Trade) Dose Ordered Sig/Galileo Route Start Time Stop Time Status Last Admin Dose Admin Oxycodone HCl (Roxicodone Immediate Rel Tab) 5 mg NOW STAT PO 12/26/16 04:55 12/26/16 04:56 DC 12/26/16 04:55 5 MG Hydromorphone HCl (Dilaudid Inj) 1 mg NOW STAT IM 12/26/16 05:44 12/26/16 05:45 DC 12/26/16 05:55 1 MG Acetaminophen (Tylenol Tab) 1,000 mg NOW STAT PO 12/26/16 05:44 12/26/16 05:45 DC 12/26/16 05:54 1,000 MG ECG Indication: chest pain Rate (beats per minute): 63 Rhythm: atrial fibrillation Findings: no acute ischemic change Comparison ECG Date: December 04, 2016 Change: no significant change Change: Repeat EKG showed A Fib, 57 beats per minute, no acute ischemic changes, similar to previous. ED Course 0251: The patient was evaluated in room B06. A complete history and physical exam was performed. 0400: The hospital staff is unable to obtain blood. 0430: Oxycodone HCl 1 homepack PO. I reevaluated the patient who feels better. I told IV team to obtain blood from her foot. 0455: Oxycodone HCl 5 mg PO 0500: The patient states that she was unconscious for an unknown amount of time lying against her computer. 0541: I discussed the patient's case with [facility] He agreed with CT head and repeat cardiac enzymes, and if normal send home. 0544: Tylenol Tab 1000 mg PO, Dilaudid Inj 1 mg IM 0730: Reevaluated the patient. Discussed results and discharge instructions: She verbalized understanding and agreement. The patient is ready for discharge. Medical Decision Differential: Cardiac Ischemia (STEMI, NSTEMI, Unstable Angina, etc), Aortic Dissection, Arrhythmia, Pulmonary Embolism, Pneumonia, Pneumothorax, MSK, Infectious, Pericarditis/Myocarditis, Esophageal Rupture, Gastrointestinal, amongst other pathologies entertained. 66 yr old female well known to department for frequent visits related to pain. No known cardiac history though complaining about chest pain radiating to left arm after reading about heart attacks online earlier this evening. Also added on later in stay that she thinks she might have passed out, though she notes she may have just fallen asleep. Complaining essentially of pain everywhere including migraine that she "always has." She is in no distress on evaluation though states she needs pain medications. Given Oxy IR though patient continuing to state only way to feel better is with IV medications. There is no way to get IV in this woman and it was attempted many times. I do not feel that the risks of placing a central line outweigh the benefits. She refuses Nitro and ASA stating they make her have seizures and is allergic (this is not documented in chart). She is not acutely shob, has normal vitals, no leg swelling and no PE risks currently thus I do not feel that CT PE study is indicated at this time, and furthermore she is already on Eliquis for afib. Post IM dilaudid patient stating she feels fine and wants to go home. She does not want to be in the hospital any more. Repeat EKG continues to show Afib. She has two similar EKGs several hours apart, 2 trops which are both 6+ hours post initial onset of symptoms. I did briefly discuss case with Dr Ferrer who knows patient well and agrees that with all work-up negative there is no need to admit patient, especially given patient now wishing to go home. She notes she would like more pain medications for body aches/pains but that chest pain is not bothering her currently. She is clearly in no distress. I strongly advised she continue to keep appointment with Dr Ricks in the next week. Aware RTED if worsening or any other concerns. Impression Primary Impression: Left sided chest pain Additional Impressions: Diffuse pain Headache Scribe Attestation The scribe's documentation has been prepared under my direction and personally reviewed by me in its entirety. I confirm that the note above accurately reflects all work, treatment, procedures, and medical decision making performed by me. Departure Information Dispostion Home / Self-Care Referrals Marcelo Escoto M.D. (PCP) Patient Instructions ED Chest Pain Atypical Unkn Cause, My [facility] Problem Qualifiers Additional Impressions: Headache Headache type: unspecified Headache chronicity pattern: chronic headache Intractability: not intractable Qualified Codes: R51 - Headache
[2016-12-26] MEDS ORDERED: OXYC1TAB3 PO (03:11)
[2016-12-26] MEDS ORDERED: OXYCODONE IR HOME PACK PO ONE (04:30)
[2016-12-26] MEDS ORDERED: OXYCODONE HCL IR 5 MG TAB (IMMEDIATE RELEASE) PO STA (04:55)
[2016-12-26 05:12] LABS: BASO % 0.6 %; BASO ABS # 0.04 K/uL (0-0.2); COMPLETE YES; EOS % 3.5 %; HEMATOCRIT 33.3 % (37-47); IG% 0.3 %; LYMPH % 29.5 %; LYMPH ABS # 1.93 K/uL (1.2-3.4); MEAN CELL VOLUME 86.7 fL (80-100); MEAN CORPUSCULAR HEMOGLOBIN 27.9 pg (25-34); MEAN CORPUSCULAR HGB CONC 32.1 g/dl (32-36); MEAN PLATELET VOLUME 11.3 fL (7.4-10.4); MONO % 8.7 %; NEUT % 57.4 %; PLATELET COUNT 145 K/uL (130-400); RED BLOOD COUNT 3.84 M/uL (4.2-5.4); WHITE BLOOD COUNT 6.55 K/uL (4.8-10.8)
[2016-12-26 05:27] LABS: BLOOD UREA NITROGEN 17 mg/dl (7-18); CALCIUM 8.6 mg/dl (8.5-10.1); CARBON DIOXIDE 20 mmol/L (21-32); CHLORIDE 115 mmol/L (98-107); GLUCOSE 92 mg/dl (70-99); POTASSIUM 3.9 mmol/L (3.5-5.1); SODIUM 147 mmol/L (136-145)
[2016-12-26 05:31] LABS: CKMB/CK RATIO 1.6 (0-3.0)
[2016-12-26] MEDS ORDERED: ACETAMINOPHEN 500 MG TAB PO STA (05:44)
[2016-12-26] MEDS ORDERED: HYDROmorphone INJ 1 MG/ML SYR IM STA (05:44)
--- NOTE | 2016-12-26 07:20 | DIAGNOSTIC IMAGING REPORT ---
CT SCAN OF THE BRAIN WITHOUT IV CONTRAST CLINICAL HISTORY: Syncope. COMPARISON STUDY: CT of the brain dated 10/23/2016. TECHNIQUE: Unenhanced axial CT scan of the brain is performed from the vertex to the skull base. CT DOSE: 569.73 mGy.cm FINDINGS: Brain parenchyma: There is minimal subcortical and periventricular microangiopathic change. There is no hemorrhage, mass effect, or evidence of acute territorial ischemia by CT criteria. Faint mineralization is noted in the basal ganglia. Campos-white matter is preserved. No extra-axial fluid collection is seen. Ventricles, sulci, cisterns: Normal in configuration. Intracranial vasculature: There is atherosclerotic calcification of the cavernous carotid arteries. Calvarium: Unremarkable. Sinuses and mastoids: The visualized paranasal sinuses are clear. The mastoid air cells are well pneumatized. Orbits: The bony orbits are grossly intact. IMPRESSION: There is no hemorrhage, mass effect, or evidence of acute territorial ischemia by CT criteria. Electronically signed by: Xu Tyler M.D. 12/26/2016 7:19 AM Dictated Date/Time: 12/26/2016 7:17 AM
[2016-12-26 07:30] VITALS: BP 138/80; PULSE 66; O2SAT 95
--- NOTE | 2016-12-26 07:46 | DIAGNOSTIC IMAGING REPORT ---
CHEST ONE VIEW PORTABLE CLINICAL HISTORY: Chest pain. COMPARISON STUDY: Chest radiograph December 04, 2016. FINDINGS: A hiatal hernia is noted. There are surgical clips projecting over the lower mediastinum and upper abdomen. An anterior cervical spine fusion is noted. Mild cardiomegaly is unchanged. There is no evidence of pulmonary edema. No consolidation is identified. There is no pneumothorax or pleural effusion. Minimal left basilar opacity favors atelectasis. IMPRESSION: 1. No acute cardiopulmonary findings. 2. Stable cardiomegaly. 3. Hiatal hernia. Electronically signed by: Hair Green M.D. 12/26/2016 7:45 AM Dictated Date/Time: 12/26/2016 7:44 AM
[2017-01-05] MEDS ORDERED: LAMO100T16 PO (07:21)
[2017-01-05] MEDS ORDERED: DOCU-94 PO (07:21)
[2017-01-05] MEDS ORDERED: ALBU18002 INH (07:21)
[2017-01-05] MEDS ORDERED: [UNRECOGNIZED DRUG - CODE] PO (07:21)
[2017-01-05] MEDS ORDERED: Estrace (07:21)
[2017-05-29] MEDS ORDERED: FLUT0.15 NAE (14:46)
[2017-05-29] MEDS ORDERED: ATRIN INH (14:46)
[2017-05-29] MEDS ORDERED: LAMO200T38 PO (14:46)
[2017-05-29] MEDS ORDERED: FERR1TAB13 PO (14:46)
[2017-05-29] MEDS ORDERED: VOLTAREN GEL TOP (14:46)
[2017-07-02] MEDS ORDERED: MULT-1042 PO (00:01)
[2017-07-02] MEDS ORDERED: SENN-65 PO (00:02)
[2017-07-04] MEDS ORDERED: CEPH500C PO (13:08)
[2017-07-04] MEDS ORDERED: HYDR-4079 PO (13:08)
[2017-07-04] MEDS ORDERED: SULF800T23 PO (18:32)
[2017-08-16] MEDS ORDERED: FURO20TA PO (17:23)
[2017-08-16] MEDS ORDERED: SULF800T23 PO (17:23)
[2017-08-16] MEDS ORDERED: LORA-741 PO (17:23)
[2017-08-16] MEDS ORDERED: LEVE500T PO (17:23)
[2017-08-16] MEDS ORDERED: TPRSR/25 PO (17:23)
[2017-08-16] MEDS ORDERED: FLUT0.15 NAE (17:23)
[2017-08-16] MEDS ORDERED: DOCU-94 PO (17:23)
[2017-08-16] MEDS ORDERED: IPRA0.03 NAE (17:23)
[2017-08-16] MEDS ORDERED: POTA20TA13 PO (17:23)
[2017-08-16] MEDS ORDERED: TPM100 PO (17:23)
[2017-08-16] MEDS ORDERED: FERR1TAB13 PO (17:23)
[2017-08-16] MEDS ORDERED: PANT40TA PO (17:23)
[2017-08-16] MEDS ORDERED: METO5TAB2 PO (17:23)
[2017-08-16] MEDS ORDERED: APIX1TAB3 PO (17:23)
[2017-08-16] MEDS ORDERED: LAMO100T16 PO (17:23)
[2017-08-16] MEDS ORDERED: LAMO200T38 PO (17:23)
[2017-08-16] MEDS ORDERED: VNTHFA/IN PO (17:23)
== END 2016-12-26 07:41 | disposition home or self-care (01) ==
LOC: EDBD 02:47 → C.EDB 02:50
DX: R07.9 Chest pain, unspecified (principal); R51 Headache; J45.909 Unspecified asthma, uncomplicated; I10 Essential (primary) hypertension; K21.9 Gastro-esophageal reflux disease without esophagitis; Z90.49 Acquired absence of other specified parts of digestive tract

== ENCOUNTER → 2017-01-03 | Day surgery (SDC) | payer OTHER ==
[~2017-01-03] MED LIST changes: +ALBU18002 INH; +ASCA500 PO; +ASCO500T16 PO; +ATRIN INH; +CEPH500C PO; +CIPR1TAB11 PO; +DOCU-94 PO; +ESTCR PV; +ESTR1 PO; +Estrace; +FERR1TAB13 PO; +FLUT0.15 NAE; +HYDR-4079 PO; +IPRA0.03 NAE; +LAMO100T16 PO; -LAMO1TAB21 PO; +LIDOCAINE HCL 2% 2 ML VIAL (20MG/ML) ONE; +MULT-1042 PO; +OXYC-57 PO; +PROPOFOL IV EMULSION 10 MG/ML 20 ML VIAL IV ONE; +SENN-65 PO; +VOLTAREN GEL TOP; +[UNRECOGNIZED DRUG - CODE] PO; +[UNRECOGNIZED DRUG - CODE] PO
== END | disposition home or self-care (01) ==
LOC: C.CATH 07:06
PROVIDERS: ATTEND Internal Medicine Cardiovascular Disease
DX: I48.91 Unspecified atrial fibrillation (principal)

== ENCOUNTER → 2017-01-05 | Day surgery (SDC) | payer OTHER ==
[~2017-01-05] VITALS: Ht 182.9 cm; Wt 127.4 kg
[2017-01-05 07:15] VITALS: BP 175/82; PULSE 70; TEMP 36.4; O2SAT 98; Ht 182.9 cm; Wt 127.4 kg
[2017-01-05 08:10] VITALS: BP 144/65; PULSE 68; O2SAT 98
[2017-01-05 08:13] VITALS: BP 144/65; PULSE 68; O2SAT 98
[2017-01-05 08:15] VITALS: BP 119/55; PULSE 70; O2SAT 98
--- NOTE | 2017-01-05 08:22 | Cardiology Procedure Brief Nt ---
Preliminary Cardiology Note Procedure Date Jan 05, 2017. 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
--- NOTE | 2017-01-05 08:28 | Anesthesiology Progress Note ---
Anesthesia Post Op Note Date & Time Jan 05, 2017 at 08:26 Vital Signs Pain Intensity: 1 Vital Signs Past 12 Hours Date Time Temp Pulse Resp B/P Pulse Ox O2 Delivery O2 Flow Rate FiO2 01/05/17 08:15 70 16 119/55 98 Room Air 01/05/17 08:13 68 16 144/65 98 Nasal Cannula 4 01/05/17 08:10 68 16 144/65 98 Nasal Cannula 4 01/05/17 07:15 36.4 70 16 175/82 98 Room Air Notes Mental Status: alert / awake / arousable, participated in evaluation Pt Amnestic to Procedure: Yes Nausea / Vomiting: adequately controlled Pain: adequately controlled Airway Patency, RR, SpO2: stable & adequate BP & HR: stable & adequate Hydration State: stable & adequate Anesthetic Complications: no major complications apparent The patient complained of L arm pain preoperatively. Dr. Ricks is aware of it. She is otherwise comfortable and vitals are stable.
[2017-01-05 09:15] VITALS: BP 121/59; PULSE 58; O2SAT 98
--- NOTE | 2017-01-05 09:29 | Discharge Instructions ---
Discharge Instructions Admission Reason for Admission: Atrial Fibrillation Discharge Discharge Diagnosis / Problem: electrical cardioversion Discharge Goals Goal(s): Improve disease control Activity Recommendations Activity Limitations: resume your previous activity . Instructions / Follow-Up Instructions / Follow-Up ACTIVITY RECOMMENDATIONS: * May resume driving tomorrow. SPECIAL CARE: * May apply burn ointment for skin irritation. * Please contact physician for any lightheadedness, dizziness or palpitations. We will schedule follow-up in one month Current Hospital Diet Patient's current hospital diet: AHA Diet (Heart Healthy) Discharge Diet Recommended Diet: AHA Diet (Heart Healthy) Pending Studies Studies pending at discharge: no Laboratory Results Hemoglobin A1c Test 11/06/16 12:22 Range/Units Estimated Average Glucose 100 mg/dl Hemoglobin A1c 5.1 4.5-5.6 % Medical Emergencies . Who to Call and When: Medical Emergencies: If at any time you feel your situation is an emergency, please call 911 immediately. . Non-Emergent Contact Non-Emergency issues call your: Primary Care Provider . . "Provider Documentation" section prepared by Elvin Ricks. VTE Core Measure Inpt VTE Proph given/why not?: Other Anticoagulation
--- NOTE | 2017-01-06 02:35 | OPERATIVE REPORT ---
DATE OF OPERATION: 01/05/2017 INDICATIONS FOR CARDIOVERSION: Atrial fibrillation. HISTORY: This is a 66-year-old woman who has a history of atrial fibrillation of uncertain duration. She has been anticoagulated with Eliquis, she has symptoms of dyspnea on exertion, fatigue and fluid retention. She is therefore brought to the laboratory for electrical cardioversion. After obtaining informed consent for the procedure, she was connected to the recording apparatus and anteroposterior patch electrodes were placed. She was anesthetized using propofol by the anesthesia department. Once adequately anesthetized, cardioversion was performed using a 200 joule biphasic synchronized shock. She converted to sinus bradycardia. She awoke without sequelae, she tolerated the procedure well and had no complications. She will be discharged. CHRIS
== END | disposition home or self-care (01) ==
LOC: C.CATH 06:29
PROVIDERS: ATTEND Internal Medicine Cardiovascular Disease
DX: I48.91 Unspecified atrial fibrillation (principal); Z79.01 Long term (current) use of anticoagulants

== ENCOUNTER → 2017-01-08 | Outpatient (CLI) | payer OTHER ==
[~2017-01-08] MED LIST changes: -LIDOCAINE HCL 2% 2 ML VIAL (20MG/ML) ONE; -PROPOFOL IV EMULSION 10 MG/ML 20 ML VIAL IV ONE
--- NOTE | 2017-01-09 15:31 | DIAGNOSTIC IMAGING REPORT ---
BILATERAL KNEE RADIOGRAPHS CLINICAL HISTORY: Bilateral knee pain. COMPARISON: Knee radiographs December 28, 2015. FINDINGS: Right knee: This exam is compromised due to suboptimal penetration. Alignment of the right knee is anatomic. No acute fracture is identified. There is a small right knee joint effusion. There is mild medial compartment joint space narrowing as well as mild to moderate patellofemoral compartment joint space narrowing with osteophytosis. Left knee: Alignment of the left knee is anatomic. No fracture or suspicious lesion is identified. There may be a small left knee joint effusion. There is moderate to marked narrowing of the patellofemoral compartment with osteophytosis. There is moderate osteophytosis of the lateral compartment. IMPRESSION: Right knee: 1. Moderate osteoarthritis of the right knee, most pronounced within the medial patellofemoral compartments. 2. Small right knee joint effusion. Left knee: 1. Moderate osteophyte of the left knee, most pronounced within the patellofemoral compartment. 2. Suspected small left knee joint effusion. Electronically signed by: Hair Green M.D. 01/09/2017 3:29 PM Dictated Date/Time: 01/09/2017 3:27 PM
== END | disposition home or self-care (01) ==
LOC: C.RDSM 13:37
PROVIDERS: ATTEND Physical Medicine & Rehabilitation Sports Medicine
DX: M17.0 Bilateral primary osteoarthritis of knee (principal); M25.461 Effusion, right knee; M25.762 Osteophyte, left knee

== ENCOUNTER → 2017-02-01 | Outpatient (CLI) | payer OTHER ==
[2017-02-01 15:54] LABS: BASO % 0.8 %; BASO ABS # 0.05 K/uL (0-0.2); COMPLETE YES; EOS % 3.6 %; HEMATOCRIT 35.2 % (37-47); IG% 0.2 %; LYMPH % 26.5 %; LYMPH ABS # 1.75 K/uL (1.2-3.4); MEAN PLATELET VOLUME 11.1 fL (7.4-10.4); MONO % 6.5 %; NEUT % 62.4 %; PLATELET COUNT 200 K/uL (130-400); RED BLOOD COUNT 4.14 M/uL (4.2-5.4); WHITE BLOOD COUNT 6.61 K/uL (4.8-10.8)
[2017-02-01 16:02] LABS: BLOOD UREA NITROGEN 12 mg/dl (7-18); BUN/CREATININE RATIO 8.9 (10-20); CALCIUM 9.2 mg/dl (8.5-10.1); CARBON DIOXIDE 21 mmol/L (21-32); CHLORIDE 114 mmol/L (98-107); GLUCOSE 87 mg/dl (70-99); SODIUM 144 mmol/L (136-145)
[2017-02-01 16:06] LABS: FERRITIN 9.2 ng/ml (8.0-388.0); TOTAL IRON BINDING CAPACITY 368 mcg/dl (250-450)
== END | disposition home or self-care (01) ==
LOC: C.LAB 14:05
PROVIDERS: ATTEND Nurse Practitioner
DX: D64.9 Anemia, unspecified (principal)

== ENCOUNTER 2017-02-23 10:49 | Inpatient (IN) | payer OTHER ==
[~2017-02-23] VITALS: Ht 170.2 cm; Wt 122.0 kg
[~2017-02-23 10:49] MED LIST changes: -ASCA500 PO; -ASCO500T16 PO; -ATRIN INH; -CEPH500C PO; -CIPR1TAB11 PO; -ESTCR PV; -ESTR1 PO; -FERR1TAB13 PO; -FLUT0.15 NAE; -HYDR-4079 PO; -IPRA0.03 NAE; -MULT-1042 PO; -OXYC-57 PO; -SENN-65 PO; -VOLTAREN GEL TOP; -[UNRECOGNIZED DRUG - CODE] PO
[2017-02-23] MEDS ORDERED: LORAZEPAM 2 MG/ML 1 ML VIAL IV STA (11:22)
[2017-02-23] MEDS ORDERED: SODIUM CHLORIDE 0.9% 1000ML 1,000 ML IV STA (11:22)
--- NOTE | 2017-02-23 11:28 | EMERGENCY ROOM VISIT NOTE ---
History First contact with patient: 11:09 Chief Complaint: GI ASSESSMENT Stated Complaint: BLEEDING/BOWEL Nursing Triage Summary: Triage note: Pt reports "i have bleeding of the bowel it has been going on for the past month it was red and now it is black." History of Present Illness The patient is a 67 year old female who presents to the Emergency Room with complaints of abdominal pain and GI bleeding. The patient states that she has noticed bright red blood per rectum for approximately one month. She states that yesterday and today she has noticed that it was black in color. She reports diffuse abdominal pain that is worse in the left lower quadrant. She rates her discomfort a 5/10. The patient does take a look with for atrial fibrillation. She sees Dr. Dumont. She has seen her family doctor and recently was told that her blood counts were low. She states she has had some mild chest pain as well. The patient denies any fevers or chills. She denies any current vomiting but states she vomited a few weeks ago. She denies any hematemesis. She admits to melena and hematochezia. She denies any urinary symptoms. She denies any previous history of GI bleeding but states she has had ulcers. She does take Protonix and Zantac. Review of Systems A 10 system review of systems was completed with positives and pertinent negatives listed in the HPI. 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 (16) Fall (17) Fracture of rib with routine healing (18) Gastroesophageal reflux disease (19) Gout (20) Hip pain (21) History of recent fall (22) Hyperlipidemia (23) Migraine (24) Neck pain (25) Rectal bleeding (26) renal insufficiency (27) Rib fractures (28) Seizure (29) Spinal stenosis (30) Sprain of knee (31) Status post fall (32) Unexplained night sweats Surgical Problems: (1) back surgery (2) Cholecystectomy (3) Hysterectomy (4) neck surgery Family History Cancer FHx: neurologic disorder Heart disease Hypertension Kidney disease Other kidney diseases Seizures Social History Smoking Status: Never Smoker Alcohol Use: none Drug Use: none Marital Status: single Housing Status: lives alone Occupation Status: retired Current/Historical Medications Scheduled Apixaban (Eliquis), 5 MG PO BID Docusate Sodium (Colace), 1 CAP PO BID Estradiol (Estrace), 1 MG PO QAM Furosemide (Lasix), 20 MG PO QAM Lamotrigine (Lamictal), 100 MG PO BID Levetiractam (Levetiracetam), 500 MG PO BID Lorazepam (Ativan), 0.5 MG PO BID Magnesium Oxide (Mag-Ox), 400 MG PO BID Metoclopramide Hcl (Metoclopramide Hcl), 5 MG PO BID Metoprolol Succinate (Metoprolol Succinate ER), 25 MG PO DAILY Multivitamin (Multivitamin), 1 TAB PO DAILY Naproxen Sodium (Naproxen Sodium Cr), 1 TAB PO DAILY Pantoprazole Sodium (Protonix), 40 MG PO BID Potassium Chloride Microencaps (Potassium Chloride Er), 20 MEQ PO DAILY Ranitidine HCl (Ranitidine HCl), 150 MG PO HS Sulfa/Trimethoprim (Bactrim Ds 800MG/160MG), 1 TAB PO DAILY Topiramate (Topiramate), 100 MG PO BID Scheduled PRN Albuterol Hfa (Ventolin Hfa), 2 PUFFS PO UD PRN for SOB/Wheezing Albuterol Sulf (Proventil 0.083% 2.5MG/3ML), 1 DOSE NEB UD PRN for SOB/Wheezing Albuterol Sulfate (Proair Respiclick), 2 PUFF INH QID PRN for Shortness of Breath Oxycodone Ir (Roxicodone Ir), 1-2 TAB PO Q4H PRN for Severe Pain Allergies Coded Allergies: Adhesives (Verified Adverse Reaction, Unknown, ITCHY, 02/23/17) Physical Exam Vital Signs Date Time Temp Pulse Resp B/P Pulse Ox O2 Delivery O2 Flow Rate FiO2 02/23/17 14:31 67 18 157/101 98 Room Air 02/23/17 12:36 69 18 120/77 92 Room Air 02/23/17 10:58 36.8 67 18 156/79 99 Room Air Physical Exam VITALS: Vitals are noted on the nurse's note and reviewed by myself. Vital signs stable. GENERAL: This is an anxious 67-year-old female, in no acute distress, nondiaphoretic, well-developed well-nourished. SKIN: The skin was pale without rashes, erythema, edema, or bruising. There is no tenting of the skin. Capillary reflex less than 2 seconds. HEAD: Normocephalic atraumatic. EARS: The external ears are normal in appearance EYES: Pupils equal round and reactive to light and accommodation. Conjunctivae without injection, sclerae without icterus. Extraocular movements intact. NOSE: Patent, turbinates without inflammation or discharge. MOUTH: Mucous membranes moist. Tonsils are not enlarged. Pharynx without erythema or exudate. Uvula midline. Airway patent. Tongue does not deviate. NECK: Supple without nuchal rigidity. No JVD. HEART: Irregularly irregular rhythm. Regular rate. LUNGS: Clear to auscultation bilaterally without wheezes, rales or rhonchi. No retractions or accessory muscle use. ABDOMEN: Positive bowel sounds x 4. Soft, mild diffuse tenderness, moderate left lower quadrant tenderness, without masses or organomegaly. Rectal: Stool is black in color and guaiac positive. MUSCULOSKELETAL: No muscle atrophy, erythema, or edema noted. Full range of motion in all extremities. Strength 5/5 throughout. NEURO: Patient was alert and oriented to person place and time. No focal neurological deficits. Medical Decision & Procedures ER Provider Diagnostic Interpretation: CT SCAN OF THE ABDOMEN AND PELVIS WITHOUT CONTRAST CLINICAL HISTORY: Abdominal pain. GI bleeding. Pedicles disease. COMPARISON STUDY: 12/04/2016 TECHNIQUE: CT scan of the abdomen and pelvis was performed from the lung bases to the proximal femurs. Images are reviewed in the axial, sagittal, and coronal planes. IV contrast was not administered for this examination. CT DOSE: 1515.11 mGy.cm FINDINGS: Lower chest: There is a hiatal hernia. Liver: There is an 8 mm hypodensity within the inferior aspect of the right hepatic lobe, likely representing a cyst. This remain stable. Gallbladder: Surgically absent Spleen: Normal in size and attenuation. Pancreas: Unremarkable. Adrenal glands: Unremarkable. Kidneys: There is a 5.1 cm indeterminate exophytic right renal mass. An ultrasound study of July 2015 revealed this to represent a cyst. No renal calculi are visualized. There is no hydronephrosis. Bowel: There are no transition zones indicate bowel obstruction. There is no evidence of acute diverticulitis. There is evidence of a small bowel malrotation. Peritoneum: There is no intraperitoneal free air or abdominal ascites. Multiple fat-containing ventral hernias are again visualized. Vasculature: The abdominal aorta is normal in course and caliber. Adenopathy: None. Pelvic viscera: The uterus appears surgically absent. Skeletal structures: No destructive osseous lesions are seen. There are postsurgical changes of an L4-5 discectomy and spinal fusion IMPRESSION: 1. No acute findings within the abdomen or pelvis 2. Multiple fat-containing ventral hernia similar to the prior study 3. Hiatal hernia. 4. No evidence of bowel obstruction. No evidence of free air 5. Small bowel malrotation 6. No renal, ureteral, or bladder calculi identified Laboratory Results 02/23/17 12:05 Red Blood Count 4.11, Mean Corpuscular Volume 83.2, Mean Corpuscular Hemoglobin 28.0, Mean Corpuscular Hemoglobin Concent 33.6, Mean Platelet Volume 11.2, Neutrophils (%) (Auto) 71.2, Lymphocytes (%) (Auto) 18.2, Monocytes (%) (Auto) 7.4, Eosinophils (%) (Auto) 2.6, Basophils (%) (Auto) 0.6, Neutrophils # (Auto) 4.41, Lymphocytes # (Auto) 1.13, Monocytes # (Auto) 0.46, Eosinophils # (Auto) 0.16, Basophils # (Auto) 0.04 02/23/17 12:05 Test 02/23/17 11:50 02/23/17 12:05 Urine Color YELLOW Urine Appearance CLEAR (CLEAR) Urine pH 5.5 (4.5-7.5) Urine Specific [place] 1.010 (1.000-1.030) Urine Protein NEG (NEG) Urine Glucose (UA) NEG (NEG) Urine Ketones NEG (NEG) Urine Occult Blood NEG (NEG) Urine Nitrite NEG (NEG) Urine Bilirubin NEG (NEG) Urine Urobilinogen NEG (NEG) Urine Leukocyte Esterase TRACE (NEG) Urine WBC (Auto) 1-5 /hpf (0-5) Urine RBC (Auto) 0-4 /hpf (0-4) Urine Hyaline Casts (Auto) 0 /lpf (0-5) Urine Epithelial Cells (Auto) 0-5 /lpf (0-5) Urine Bacteria (Auto) NEG (NEG) White Blood Count 6.20 K/uL (4.8-10.8) Red Blood Count 4.11 M/uL (4.2-5.4) Hemoglobin 11.5 g/dL (12.0-16.0) Hematocrit 34.2 % (37-47) Mean Corpuscular Volume 83.2 fL (80-100) Mean Corpuscular Hemoglobin 28.0 pg (25-34) Mean Corpuscular Hemoglobin Concent 33.6 g/dl (32-36) Platelet Count 192 K/uL (130-400) Mean Platelet Volume 11.2 fL (7.4-10.4) Neutrophils (%) (Auto) 71.2 % Lymphocytes (%) (Auto) 18.2 % Monocytes (%) (Auto) 7.4 % Eosinophils (%) (Auto) 2.6 % Basophils (%) (Auto) 0.6 % Neutrophils # (Auto) 4.41 K/uL (1.4-6.5) Lymphocytes # (Auto) 1.13 K/uL (1.2-3.4) Monocytes # (Auto) 0.46 K/uL (0.11-0.59) Eosinophils # (Auto) 0.16 K/uL (0-0.5) Basophils # (Auto) 0.04 K/uL (0-0.2) RDW Standard Deviation 44.3 fL (36.4-46.3) RDW Coefficient of Variation 14.6 % (11.5-14.5) Immature Granulocyte % (Auto) 0.0 % Immature Granulocyte # (Auto) 0.00 K/uL (0.00-0.02) Prothrombin Time 12.0 SECONDS (9.0-12.0) Prothromb Time International Ratio 1.1 (0.9-1.1) Activated Partial Thromboplast Time 31.5 SECONDS (21.0-31.0) Partial Thromboplastin Ratio 1.2 Anion Gap 7.0 mmol/L (3-11) Est Creatinine Clear Calc Drug Dose 56.8 ml/min Estimated GFR () 48.8 Estimated GFR (Non- 42.1 BUN/Creatinine Ratio 11.8 (10-20) Lactic Acid Level 0.6 mmol/L (0.4-2.0) Calcium Level 9.0 mg/dl (8.5-10.1) Magnesium Level 2.3 mg/dl (1.8-2.4) Total Bilirubin 0.4 mg/dl (0.2-1) Aspartate Amino Transf (AST/SGOT) 10 U/L (15-37) Alanine Aminotransferase (ALT/SGPT) 14 U/L (12-78) Alkaline Phosphatase 95 U/L (45-117) Troponin I < 0.015 ng/ml (0-0.045) Total Protein 6.9 gm/dl (6.4-8.2) Albumin 4.0 gm/dl (3.4-5.0) Globulin 2.9 gm/dl (2.5-4.0) Albumin/Globulin Ratio 1.4 (0.9-2) Lipase 248 U/L (73-393) Hepatitis C Antibody Screen NEG (NEG) Medications Administered Medications (Trade) Dose Ordered Sig/Galileo Route Start Time Stop Time Status Last Admin Dose Admin Sodium Chloride (Nss 1000ml) 1,000 ml @ 125 mls/hr Q8H STAT IV 02/23/17 11:22 02/23/17 16:33 DC 02/23/17 13:00 125 MLS/HR Lorazepam 0.5 mg 0.5 mg NOW STAT IV 02/23/17 11:22 02/23/17 11:28 DC 02/23/17 13:00 0.5 MG Pantoprazole Sodium 80 mg/ Dextrose 120 ml @ 480 mls/hr TODAY@1130 IV 02/23/17 11:30 02/23/17 11:44 DC 02/23/17 13:01 480 MLS/HR Pantoprazole Sodium/Dextrose (Protonix Inj/D5 100ml) 100 ml @ 20 mls/hr Q5H IV 02/23/17 11:45 02/23/17 16:44 DC 02/23/17 13:18 20 MLS/HR Morphine Sulfate (MoRPHine SULFATE INJ) 4 mg NOW STAT IV 02/23/17 14:26 02/23/17 14:27 DC 02/23/17 14:30 4 MG Lorazepam (Ativan Inj) 0.5 mg Q6H PRN IV 02/23/17 14:45 03/25/17 14:44 02/23/17 16:38 0.5 MG Procedure The patient was monitored on a monitoring specialist. They maintained a normal sinus rhythm without ectopy. ECG Indication: abdominal pain Rate (beats per minute): 68 Rhythm: atrial fibrillation Findings: nonspecific-ST abn Change: no significant change ED Course The patient was seen and examined. Previous visits were reviewed. The patient does not have a fever or leukocytosis. She has a very mild anemia which is stable compared to previous hemoglobin. She does not have any significant elect light abnormalities. Creatinine is 1.3 and this is similar to baseline. Lactic acid is not elevated. Troponin was not elevated. Lipase was not elevated. INR was 1.0. Urinalysis was negative. CT scan of the abdomen and pelvis does not reveal any acute abnormality. She does have a ventral hernia with similar appearance compared to previous. The patient was hydrated with normal saline She was very anxious and tearful. She was given 0.5 mg IV Ativan. She was given Protonix bolus and started on IV drip She was given 4 mg IV morphine The patient is a very poor historian. She does report bright red blood per rectum for approximately one month. She states that over the last 2 days it has been black in color. The patient states she takes eliquis and states she has been taking it as prescribed. She is hemodynamically stable. Given the Xa inhibitor and melena, she would benefit from further evaluation and management in the hospital. The case was discussed with the hospitalist service and they will evaluate the patient. The patient was also seen and examined by who agrees with the assessment and treatment plan. Medical Decision DIFFERENTIAL DIAGNOSIS: Hepatitis, cholecystitis, cholangitis, biliary colic, pancreatitis, pneumonia, subdiaphragmatic abscess, appendicitis, inguinal hernia , nephrolithiasis, inflammatory bowel disease, mesenteric adenitis, peptic ulcer disease, GERD, gastritis, pancreatitis, myocardial infarction, pericarditis, ruptured aortic aneurysm, appendicitis, gastroenteritis, bowel obstruction, splenic infarct, diverticulitis, mesenteric ischemia, metabolic, peritonitis, among others. Impression Primary Impression: Rectal bleeding Additional Impression: Lower abdominal pain Departure Information Referrals No Doctor, Assigned (PCP) Patient Instructions [facility] Problem Qualifiers
[2017-02-23] MEDS ORDERED: PANTOprazole INJ 80 MG in DEXTROSE 5% 100ML IV SCH (11:30)
[2017-02-23] MEDS ORDERED: ESTR1 PO (11:40)
[2017-02-23] MEDS ORDERED: PANTOprazole INJ 40 MG in DEXTROSE 5% 100ML IV SCH (11:45)
--- NOTE | 2017-02-23 12:06 | EMERGENCY ROOM VISIT NOTE ---
ED Visit Note First contact with patient: 11:09 This Patient was discussed with the physician physician assistant certified, Elida Iqbal PA-C. The pertinent historical and physical exam findings were confirmed. I agree with the studies ordered and with the interpretations of these studies. I agree with the disposition and care plan.
[2017-02-23 12:14] LABS: URINE APPEARANCE CLEAR (CLEAR); URINE BILIRUBIN NEG (NEG); URINE COLOR YELLOW; URINE EPITHELIAL CELL AUTO 0-5 /lpf (0-5); URINE NITRITE NEG (NEG); URINE PH 5.5 (4.5-7.5); UROBILINOGEN NEG (NEG); ZZUR CULT IF INDIC CLEAN CATCH NO
[2017-02-23 12:17] LABS: MANUAL MICROSCOPIC REQUIRED? NO; REVIEW REQ? NO
[2017-02-23 12:18] LABS: BASO % 0.6 %; BASO ABS # 0.04 K/uL (0-0.2); COMPLETE YES; EOS % 2.6 %; HEMATOCRIT 34.2 % (37-47); LYMPH % 18.2 %; LYMPH ABS # 1.13 K/uL (1.2-3.4); MEAN CELL VOLUME 83.2 fL (80-100); MEAN CORPUSCULAR HGB CONC 33.6 g/dl (32-36); MEAN PLATELET VOLUME 11.2 fL (7.4-10.4); MONO % 7.4 %; NEUT % 71.2 %; PLATELET COUNT 192 K/uL (130-400); RED BLOOD COUNT 4.11 M/uL (4.2-5.4)
[2017-02-23 12:30] LABS: INR 1.1 (0.9-1.1); PARTIAL THROMBOPLASTIN RATIO 1.2
[2017-02-23 12:42] LABS: ALT/SGPT 14 U/L (12-78); AST/SGOT 10 U/L (15-37); BLOOD UREA NITROGEN 15 mg/dl (7-18); BUN/CREATININE RATIO 11.8 (10-20); CARBON DIOXIDE 24 mmol/L (21-32); CHLORIDE 114 mmol/L (98-107); GLUCOSE 101 mg/dl (70-99); MAGNESIUM 2.3 mg/dl (1.8-2.4); POTASSIUM 3.9 mmol/L (3.5-5.1); SODIUM 145 mmol/L (136-145)
[2017-02-23 12:48] LABS: ALB/GLOB RATIO 1.4 (0.9-2); ALKALINE PHOSPHATASE 95 U/L (45-117)
--- NOTE | 2017-02-23 12:51 | DIAGNOSTIC IMAGING REPORT ---
CHEST ONE VIEW PORTABLE CLINICAL HISTORY: abdominal pain pain COMPARISON STUDY: 12/26/2016 FINDINGS: Mild stable cardia megaly. Lungs are clear. Diaphragms smooth. IMPRESSION: Mild stable cardiomegaly. Otherwise negative study Electronically signed by: Liu Collins M.D. 02/23/2017 12:49 PM Dictated Date/Time: 02/23/2017 12:49 PM
--- NOTE | 2017-02-23 13:48 | DIAGNOSTIC IMAGING REPORT ---
CT SCAN OF THE ABDOMEN AND PELVIS WITHOUT CONTRAST CLINICAL HISTORY: Abdominal pain. GI bleeding. Pedicles disease. COMPARISON STUDY: 12/04/2016 TECHNIQUE: CT scan of the abdomen and pelvis was performed from the lung bases to the proximal femurs. Images are reviewed in the axial, sagittal, and coronal planes. IV contrast was not administered for this examination. CT DOSE: 1515.11 mGy.cm FINDINGS: Lower chest: There is a hiatal hernia. Liver: There is an 8 mm hypodensity within the inferior aspect of the right hepatic lobe, likely representing a cyst. This remain stable. Gallbladder: Surgically absent Spleen: Normal in size and attenuation. Pancreas: Unremarkable. Adrenal glands: Unremarkable. Kidneys: There is a 5.1 cm indeterminate exophytic right renal mass. An ultrasound study of July 2015 revealed this to represent a cyst. No renal calculi are visualized. There is no hydronephrosis. Bowel: There are no transition zones indicate bowel obstruction. There is no evidence of acute diverticulitis. There is evidence of a small bowel malrotation. Peritoneum: There is no intraperitoneal free air or abdominal ascites. Multiple fat-containing ventral hernias are again visualized. Vasculature: The abdominal aorta is normal in course and caliber. Adenopathy: None. Pelvic viscera: The uterus appears surgically absent. Skeletal structures: No destructive osseous lesions are seen. There are postsurgical changes of an L4-5 discectomy and spinal fusion IMPRESSION: 1. No acute findings within the abdomen or pelvis 2. Multiple fat-containing ventral hernia similar to the prior study 3. Hiatal hernia. 4. No evidence of bowel obstruction. No evidence of free air 5. Small bowel malrotation 6. No renal, ureteral, or bladder calculi identified Electronically signed by: Pedro Pablo Sharpe M.D. 02/23/2017 1:46 PM Dictated Date/Time: 02/23/2017 1:35 PM
[2017-02-23] MEDS ORDERED: MoRPHine SULFATE 4 MG/ML 1 ML CARP\\VIAL IV STA (14:26)
[2017-02-23] MEDS ORDERED: ALBUTEROL HFA 8 GM INHALER INH PRN (14:45)
[2017-02-23] MEDS ORDERED: ALUMINUM/MAGNESIUM/SIMETH (MAALOX MAX) 30 ML UDC PO PRN (14:45)
[2017-02-23] MEDS ORDERED: POLYETHYLENE (MIRALAX) 17 GM PACK PO PRN (14:45)
[2017-02-23] MEDS ORDERED: MAGNESIUM HYDROXIDE SUSP 30 ML UDC PO PRN (14:45)
[2017-02-23] MEDS ORDERED: NITROGLYCERIN 0.4 MG SL PER TAB CHARGE SL PRN (14:45)
--- NOTE | 2017-02-23 15:17 | History and Physical ---
History & Physical Date & Time of Service: Feb 23, 2017 at 14:56 Chief Complaint: Bleeding/Bowel Primary Care Physician: Marcelo Escoto M.D. History of Present Illness Source: patient, clinic records, hospital records Patient is a pleasant 67 y/o female, with PMHx of asthma, a.fib, bilateral lower extremity edema, seizure disorder, anxiety, and GERD, who presented to the ED because of dark stools and BRBPR x1 month. She is a poor historian with her health history. According to patient, she has been following with Dr. Dumont for approximately one month now due to BRBPR. She is scheduled for a colonoscopy on 02/28. She was instructed to stop taking her Eliquis [address] Dumont due to the bleeding. She states her dark stools have been ongoing for 1 month now but she did not tell GI about it. She admits to epigastric discomfort with nausea and vomiting. She denies h/o of PUD. She denies excessive NSAID use, alcohol, or coffee. +anxiety- patient tearful/worried w/ everything going on. According to patient, she has had lower abdominal surgery in the past, but cannot elaborate. When asked about her surgical history, patient states "I don't remember, there were too many of them." Patient denies any fever, chills, sweats, lightheadedness, dizziness, vision changes, CP, palpitations, edema, SOB, wheezing, cough, diarrhea, urinary symptoms, numbness/ tingling, weakness, muscle/joint pain, depression, active bleeding, or new skin discoloration/changes. Past Medical/Surgical History Medical Problems: asthma a.fib bilateral lower extremity edema seizure disorder anxiety GERD Surgical Problems: (1) back surgery Status: Resolved (2) Cholecystectomy Status: Resolved (3) Hysterectomy Status: Resolved (4) neck surgery Status: Resolved Family History Cancer FHx: neurologic disorder Heart disease Hypertension Kidney disease Other kidney diseases Seizures Social History Smoking Status: Never Smoker Drug Use: none Marital Status: single Occupational Status: retired Immunizations History of Influenza Vaccine: Yes Influenza Vaccine Date: Sep 10, 2011 History of Tetanus Vaccine?: Yes Tetanus Immunization Date: Mar 07, 1997 History of Pneumococcal: Yes Pneumococcal Date: Sep 09, 2011 History of Hepatitis B Vaccine: No Hepatitis Immunization Date: Jul 01, 2006 Multi-Drug Resistant Organisms History of MDRO: No Allergies Coded Allergies: Adhesives (Verified Adverse Reaction, Unknown, ITCHY, 02/23/17) Home Medications Scheduled Apixaban (Eliquis), 5 MG PO BID Docusate Sodium (Colace), 1 CAP PO BID Estradiol (Estrace), 1 MG PO QAM Furosemide (Lasix), 20 MG PO QAM Lamotrigine (Lamictal), 100 MG PO BID Levetiractam (Levetiracetam), 500 MG PO BID Lorazepam (Ativan), 0.5 MG PO BID Magnesium Oxide (Mag-Ox), 400 MG PO BID Metoclopramide Hcl (Metoclopramide Hcl), 5 MG PO BID Metoprolol Succinate (Metoprolol Succinate ER), 25 MG PO DAILY Multivitamin (Multivitamin), 1 TAB PO DAILY Naproxen Sodium (Naproxen Sodium Cr), 1 TAB PO DAILY Pantoprazole Sodium (Protonix), 40 MG PO BID Potassium Chloride Microencaps (Potassium Chloride Er), 20 MEQ PO DAILY Ranitidine HCl (Ranitidine HCl), 150 MG PO HS Sulfa/Trimethoprim (Bactrim Ds 800MG/160MG), 1 TAB PO DAILY Topiramate (Topiramate), 100 MG PO BID Scheduled PRN Albuterol Hfa (Ventolin Hfa), 2 PUFFS PO UD PRN for SOB/Wheezing Albuterol Sulf (Proventil 0.083% 2.5MG/3ML), 1 DOSE NEB UD PRN for SOB/Wheezing Albuterol Sulfate (Proair Respiclick), 2 PUFF INH QID PRN for Shortness of Breath Oxycodone Ir (Roxicodone Ir), 1-2 TAB PO Q4H PRN for Severe Pain Physical Exam Vital Signs Date Time Temp Pulse Resp B/P Pulse Ox O2 Delivery O2 Flow Rate FiO2 02/23/17 14:31 67 18 157/101 98 Room Air 02/23/17 12:36 69 18 120/77 92 Room Air 02/23/17 10:58 36.8 67 18 156/79 99 Room Air General Appearance: no apparent distress, + obese Head: normocephalic, atraumatic Eyes: PERRL ENT: hearing grossly normal Neck: supple Respiratory/Chest: lungs clear, no respiratory distress, no accessory muscle use Cardiovascular: + irregularly irregular (rate controlled) Abdomen/GI: normal bowel sounds, non tender, soft Back: normal inspection Extremities/Musculoskelatal: no calf tenderness, + swelling (+1 pitting edema of bilateral lower extremities ) Neurologic/Psych: alert, oriented x 3, + pertinent finding (anxious ) Skin: normal color, warm/dry, no rash Diagnostics Laboratory Results Results Past 24 Hours Test 02/23/17 11:50 02/23/17 12:05 Range/Units Urine Color YELLOW Urine Appearance CLEAR CLEAR Urine pH 5.5 4.5-7.5 Urine Specific [place] 1.010 1.000-1.030 Urine Protein NEG NEG Urine Glucose (UA) NEG NEG Urine Ketones NEG NEG Urine Occult Blood NEG NEG Urine Nitrite NEG NEG Urine Bilirubin NEG NEG Urine Urobilinogen NEG NEG Urine Leukocyte Esterase TRACE NEG Urine WBC (Auto) 1-5 0-5 /hpf Urine RBC (Auto) 0-4 0-4 /hpf Urine Hyaline Casts (Auto) 0 0-5 /lpf Urine Epithelial Cells (Auto) 0-5 0-5 /lpf Urine Bacteria (Auto) NEG NEG White Blood Count 6.20 4.8-10.8 K/uL Red Blood Count 4.11 4.2-5.4 M/uL Hemoglobin 11.5 12.0-16.0 g/dL Hematocrit 34.2 37-47 % Mean Corpuscular Volume 83.2 80-100 fL Mean Corpuscular Hemoglobin 28.0 25-34 pg Mean Corpuscular Hemoglobin Concent 33.6 32-36 g/dl Platelet Count 192 130-400 K/uL Mean Platelet Volume 11.2 7.4-10.4 fL Neutrophils (%) (Auto) 71.2 % Lymphocytes (%) (Auto) 18.2 % Monocytes (%) (Auto) 7.4 % Eosinophils (%) (Auto) 2.6 % Basophils (%) (Auto) 0.6 % Neutrophils # (Auto) 4.41 1.4-6.5 K/uL Lymphocytes # (Auto) 1.13 1.2-3.4 K/uL Monocytes # (Auto) 0.46 0.11-0.59 K/uL Eosinophils # (Auto) 0.16 0-0.5 K/uL Basophils # (Auto) 0.04 0-0.2 K/uL RDW Standard Deviation 44.3 36.4-46.3 fL RDW Coefficient of Variation 14.6 11.5-14.5 % Immature Granulocyte % (Auto) 0.0 % Immature Granulocyte # (Auto) 0.00 0.00-0.02 K/uL Prothrombin Time 12.0 9.0-12.0 SECONDS Prothromb Time International Ratio 1.1 0.9-1.1 Activated Partial Thromboplast Time 31.5 21.0-31.0 SECONDS Partial Thromboplastin Ratio 1.2 Sodium Level 145 136-145 mmol/L Potassium Level 3.9 3.5-5.1 mmol/L Chloride Level 114 98-107 mmol/L Carbon Dioxide Level 24 21-32 mmol/L Anion Gap 7.0 3-11 mmol/L Blood Urea Nitrogen 15 7-18 mg/dl Creatinine 1.30 0.60-1.20 mg/dl Est Creatinine Clear Calc Drug Dose 56.8 ml/min Estimated GFR () 48.8 Estimated GFR (Non- 42.1 BUN/Creatinine Ratio 11.8 10-20 Random Glucose 101 70-99 mg/dl Lactic Acid Level 0.6 0.4-2.0 mmol/L Calcium Level 9.0 8.5-10.1 mg/dl Magnesium Level 2.3 1.8-2.4 mg/dl Total Bilirubin 0.4 0.2-1 mg/dl Aspartate Amino Transf (AST/SGOT) 10 15-37 U/L Alanine Aminotransferase (ALT/SGPT) 14 12-78 U/L Alkaline Phosphatase 95 45-117 U/L Troponin I < 0.015 0-0.045 ng/ml Total Protein 6.9 6.4-8.2 gm/dl Albumin 4.0 3.4-5.0 gm/dl Globulin 2.9 2.5-4.0 gm/dl Albumin/Globulin Ratio 1.4 0.9-2 Lipase 248 73-393 U/L Diagnostic Radiology CHEST ONE VIEW PORTABLE CLINICAL HISTORY: abdominal pain pain COMPARISON STUDY: 12/26/2016 FINDINGS: Mild stable cardia megaly. Lungs are clear. Diaphragms smooth. IMPRESSION: Mild stable cardiomegaly. Otherwise negative study Electronically signed by: Liu Collins M.D. 02/23/2017 12:49 PM Dictated Date/Time: 02/23/2017 12:49 PM The status of this report is Signed. Draft = Not yet reviewed or approved by Radiologist. Signed = Reviewed and approved by Radiologist. CT SCAN OF THE ABDOMEN AND PELVIS WITHOUT CONTRAST CLINICAL HISTORY: Abdominal pain. GI bleeding. Pedicles disease. COMPARISON STUDY: 12/04/2016 TECHNIQUE: CT scan of the abdomen and pelvis was performed from the lung bases to the proximal femurs. Images are reviewed in the axial, sagittal, and coronal planes. IV contrast was not administered for this examination. CT DOSE: 1515.11 mGy.cm FINDINGS: Lower chest: There is a hiatal hernia. Liver: There is an 8 mm hypodensity within the inferior aspect of the right hepatic lobe, likely representing a cyst. This remain stable. Gallbladder: Surgically absent Spleen: Normal in size and attenuation. Pancreas: Unremarkable. Adrenal glands: Unremarkable. Kidneys: There is a 5.1 cm indeterminate exophytic right renal mass. An ultrasound study of July 2015 revealed this to represent a cyst. No renal calculi are visualized. There is no hydronephrosis. Bowel: There are no transition zones indicate bowel obstruction. There is no evidence of acute diverticulitis. There is evidence of a small bowel malrotation. Peritoneum: There is no intraperitoneal free air or abdominal ascites. Multiple fat-containing ventral hernias are again visualized. Vasculature: The abdominal aorta is normal in course and caliber. Adenopathy: None. Pelvic viscera: The uterus appears surgically absent. Skeletal structures: No destructive osseous lesions are seen. There are postsurgical changes of an L4-5 discectomy and spinal fusion IMPRESSION: 1. No acute findings within the abdomen or pelvis 2. Multiple fat-containing ventral hernia similar to the prior study 3. Hiatal hernia. 4. No evidence of bowel obstruction. No evidence of free air 5. Small bowel malrotation 6. No renal, ureteral, or bladder calculi identified Electronically signed by: Pedro Pablo Sharpe M.D. 02/23/2017 1:46 PM Dictated Date/Time: 02/23/2017 1:35 PM The status of this report is Signed. Draft = Not yet reviewed or approved by Radiologist. Signed = Reviewed and approved by Radiologist. JAQUI FELY LAURA ID:[id number] 23-FEB-2017 12:30:35 [facility] Poor data quality, interpretation may be adversely affected Atrial fibrillation Nonspecific T wave abnormality Abnormal ECG When compared with ECG of 23-FEB-2017 12:30, (unconfirmed) No significant change was found Confirmed by FLAQUITO WILLIAM ([id number]) on 02/23/2017 1:55:52 PM 25mm/s 10mm/mV 150Hz 8.0 SP2 12SL 241 HD JUAN A: 12 Referred by: Referred Self Confirmed By: FLAQUITO WILLIAM Vent. rate 68 BPM AK interval * ms QRS duration 90 ms QT/QTc 420/446 ms P-R-T axes * 35 32 1950 (67 yr) Female 110in 1lb Room: Loc:15 [employer] Impression Assessment and Plan 67 y/o female, with PMHx of asthma, a.fib, bilateral lower extremity edema, seizure disorder, anxiety, and GERD, who presented to the ED because of dark stools and BRBPR x1 month GI bleed w/ melena and BRBPR x1 month: - Admit to tele for cardiac monitoring - hgb stable at 11.5, recheck at 2000 - IV NSS @ 100 ml/hr - IV Protonix BID - NPO except meds - Follow CBC and PRP - Heme stool positive completed by ED - Consult GI, appreciate recommendations -- Patient follows w/ Dr. Dumont. Per patient, she is scheduled for colonoscopy on 02/28 because of BRBPR a.fb: - Hold Eliquis secondary to GI bleed- per patient, she has not taken in [address] Dumont advised her to discontinue - Continue Metoprolol 25 mg daily Asthma: Continue home inhalers Anxiety: Ativan IV 0.5 mg PRN Chronic lower extremity edema: Switch from Lasix PO 20 mg daily to Lasix IV 10 daily to limit PO intake Seizure disorder: Continue Lamictal 100 mg BID, Levetiracetam 500 mg BID, and Topamax 100 mg BID Hypomagnesium: - Hold Mag-Ox supplement to limit PO intake - Follow mag level, replete PRN w/ IV mag GERD: Zantac held. Protonix IV BID h/o cellulitis on chronic suppression therapy: - Continue Bactrim - Follows w/ Dr. Gardner GI Prophylaxis: Maalox PRN, IV Zofran PRN, Colace and/or Milk of Mag PRN DVT prophylaxis: OC and SCDs, chemical therapy contraindicated secondary to GI bleed Code Status: LEVEL I, FULL Dispo: From home, lives alone- has home health services [place] Physician Supervision Note: I interviewed and examined the patient. Discussed with Dawna ASTUDILLO and agree with findings and plan as documented in the note. Any exceptions or clarifications are listed here: None This pt had stopped eliquis one week ago, has been bothered but lower gi bleeding and now has epigastric pain and some melena, stable hgb at intake vitals stable abd shows epigastric pain but no guarding admit for possible endoscopy, and use protonix Gi consult with zohra Documented By: Giles Sotelo Level of Care Telemetry Resuscitation Status FULL RESUSCITATION VTE Prophylaxis VTE Risk Assessment Done? Y/N: Yes Risk Level: Moderate Given or contraindicated: Contraindicated
--- NOTE | 2017-02-23 15:52 | Gastrointestinal Consultation ---
Gastrointestinal Consultation Date of Consultation: Feb 23, 2017 Consulting Physician: Arjun Reason for Consultation: BRB, melena History of Present Illness Patient is a 67 year old female w/ PMH significant for DJD, afib, asthma, bilateral lower extremity edema, seizure disorder, anxiety, and GERD who presented to the ED with BRBPR x1 month and a recent history of melena. GI is consulted for evaluation. Pt reports that she has bad BRBPR with BMs for at least a month. Stool would be coated in BRB or sometimes mixed in with the stool. She was hesitant to have evaluation earlier because she was nervous. There are no associated symptoms. Denies abdominal pain, pressure or rectal pain. Over the past week, she has developed nausea, decreased appetite and dark , black stools. Pt began to worry because of the black stools. Today, denies fever, chills, chest pain, SOB, nausea, vomiting. CT abd 02/23/17: No acute findings within the abdomen or pelvis, Multiple fat- containing ventral hernia similar to the prior study, Hiatal hernia, No evidence of bowel obstruction. No evidence of free air, Small bowel malrotation , No renal, ureteral, or bladder calculi identified. EGD 04/16/15: large hiatal hernia Past Medical/Surgical History Medical Problems: (1) Atrial flutter Status: Acute (2) Back strain Status: Acute (3) Bloody stool Status: Acute (4) Diffuse pain Status: Acute (5) Epigastric abdominal pain Status: Acute (6) Forearm abrasion Status: Acute (7) Headache Status: Acute (8) Headache Status: Acute (9) Headache above the eye region Status: Acute (10) Hypertension Status: Acute (11) Left against medical advice Status: Acute (12) Left sided chest pain Status: Acute (13) Left sided chest pain Status: Acute (14) Spasm of back muscles Status: Acute Past Medical History: DJD, afib, asthma, bilateral lower extremity edema, seizure disorder, anxiety, GERD Past Surgical History: back surgery, Cholecystectomy, Hysterectomy, neck surgery Family History Cancer FHx: neurologic disorder Heart disease Hypertension Kidney disease Other kidney diseases Seizures Social History Smoking Status: Never Smoker Alcohol Use: none Drug Use: none Marital Status: single Housing Status: lives alone Occupation Status: retired Allergies Coded Allergies: Adhesives (Verified Adverse Reaction, Unknown, ITCHY, 02/23/17) Current Medications Home Meds and Scripts Medications Dose Route/Sig Max Daily Dose Days Date Category Estrace (Estradiol) 1 Mg Tab 1 Mg PO QAM 02/23/17 Reported Colace (Docusate Sodium) 100 Mg Cap 1 Cap PO BID 01/05/17 Reported Naproxen Sodium Cr (Naproxen Sodium) 375 Mg Tab 1 Tab PO DAILY 01/05/17 Reported Proair Respiclick (Albuterol Sulfate) 108 Mcg/Act Aer 2 Puff INH QID PRN 01/05/17 Reported Lamictal (Lamotrigine) 100 Mg Tab 100 Mg PO BID 01/05/17 Reported Roxicodone Ir (Oxycodone HCl) 5 Mg Tab 1-2 Tab PO Q4H PRN 12/26/16 Reported Multivitamin (Multivitamins) Tab 1 Tab PO DAILY 12/05/16 Reported Bactrim Ds 800MG/160MG (Trimethoprim/Sulfamethoxazole) Tab 1 Tab PO DAILY 12/05/16 Reported Mag-Ox (Magnesium Oxide) 400 Mg Tab 400 Mg PO BID 12/05/16 Reported Ativan (Lorazepam) 0.5 Mg Tab 0.5 Mg PO BID 12/05/16 Reported Proventil 0.083% 2.5MG/3ML (Albuterol Sulf) 2.5 Mg/3 Ml Nebu 1 Dose NEB UD PRN 12/05/16 Reported Ventolin Hfa (Albuterol) 200 Puffs/72857 Mcg Aers 2 Puffs PO UD PRN 12/05/16 Reported Eliquis (Apixaban) 5 Mg Tab 5 Mg PO BID 12/05/16 Reported Metoprolol Succinate ER (Metoprolol Succinate) 25 Mg Tabcr 25 Mg PO DAILY 12/05/16 Reported Ranitidine HCl 150 Mg Tab 150 Mg PO HS 12/05/16 Reported Protonix (Pantoprazole Sodium) 40 Mg Tab 40 Mg PO BID 12/05/16 Reported Levetiracetam (Levetiractam) 500 Mg Tab 500 Mg PO BID 12/05/16 Reported Topiramate 100 Mg Tab 100 Mg PO BID 04/16/16 Reported Potassium Chloride Er (Potassium Chloride Microencaps) 20 Meq Tab 20 Meq PO DAILY 01/20/16 Reported Metoclopramide Hcl 5 Mg Tab 5 Mg PO BID 09/23/15 Reported Lasix (Furosemide) 20 Mg Tab 20 Mg PO QAM 09/23/15 Reported Review of Systems Constitutional: No chills, No fever ENT: No hearing loss Respiratory: No cough, No shortness of breath Cardiac: No chest pain, No edema Abdomen: + GI bleeding, + nausea, No constipation, No diarrhea, No vomiting Physical Exam Date Time Temp Pulse Resp B/P Pulse Ox O2 Delivery O2 Flow Rate FiO2 02/23/17 15:41 62 18 157/50 94 02/23/17 14:31 67 18 157/101 98 Room Air 02/23/17 12:36 69 18 120/77 92 Room Air 02/23/17 10:58 36.8 67 18 156/79 99 Room Air General Appearance: no apparent distress Eyes: PERRL ENT: hearing grossly normal Neck: no adenopathy, trachea midline Respiratory/Chest: lungs clear Cardiovascular: no gallop, no JVD, no murmur Abdomen: normal bowel sounds, non tender, soft, no organomegaly Neurologic/Psych: alert, normal mood/affect, oriented x 3 Laboratory Results Last 24 Hours Test 02/23/17 11:50 02/23/17 12:05 Urine Color YELLOW Urine Appearance CLEAR Urine pH 5.5 Urine Specific [place] 1.010 Urine Protein NEG Urine Glucose (UA) NEG Urine Ketones NEG Urine Occult Blood NEG Urine Nitrite NEG Urine Bilirubin NEG Urine Urobilinogen NEG Urine Leukocyte Esterase TRACE Urine WBC (Auto) 1-5 /hpf Urine RBC (Auto) 0-4 /hpf Urine Hyaline Casts (Auto) 0 /lpf Urine Epithelial Cells (Auto) 0-5 /lpf Urine Bacteria (Auto) NEG White Blood Count 6.20 K/uL Red Blood Count 4.11 M/uL Hemoglobin 11.5 g/dL Hematocrit 34.2 % Mean Corpuscular Volume 83.2 fL Mean Corpuscular Hemoglobin 28.0 pg Mean Corpuscular Hemoglobin Concent 33.6 g/dl Platelet Count 192 K/uL Mean Platelet Volume 11.2 fL Neutrophils (%) (Auto) 71.2 % Lymphocytes (%) (Auto) 18.2 % Monocytes (%) (Auto) 7.4 % Eosinophils (%) (Auto) 2.6 % Basophils (%) (Auto) 0.6 % Neutrophils # (Auto) 4.41 K/uL Lymphocytes # (Auto) 1.13 K/uL Monocytes # (Auto) 0.46 K/uL Eosinophils # (Auto) 0.16 K/uL Basophils # (Auto) 0.04 K/uL RDW Standard Deviation 44.3 fL RDW Coefficient of Variation 14.6 % Immature Granulocyte % (Auto) 0.0 % Immature Granulocyte # (Auto) 0.00 K/uL Prothrombin Time 12.0 SECONDS Prothromb Time International Ratio 1.1 Activated Partial Thromboplast Time 31.5 SECONDS Partial Thromboplastin Ratio 1.2 Sodium Level 145 mmol/L Potassium Level 3.9 mmol/L Chloride Level 114 mmol/L Carbon Dioxide Level 24 mmol/L Anion Gap 7.0 mmol/L Blood Urea Nitrogen 15 mg/dl Creatinine 1.30 mg/dl Est Creatinine Clear Calc Drug Dose 56.8 ml/min Estimated GFR () 48.8 Estimated GFR (Non- 42.1 BUN/Creatinine Ratio 11.8 Random Glucose 101 mg/dl Lactic Acid Level 0.6 mmol/L Calcium Level 9.0 mg/dl Magnesium Level 2.3 mg/dl Total Bilirubin 0.4 mg/dl Aspartate Amino Transf (AST/SGOT) 10 U/L Alanine Aminotransferase (ALT/SGPT) 14 U/L Alkaline Phosphatase 95 U/L Troponin I < 0.015 ng/ml Total Protein 6.9 gm/dl Albumin 4.0 gm/dl Globulin 2.9 gm/dl Albumin/Globulin Ratio 1.4 Lipase 248 U/L Impression Patient is a 67 year old hemodynamically stable female with BRB and melena x 1 month. Differentials include anal-rectal source, hemorrhoidal bleed, AVM, ulcers etc. Given length of bleeding and stability of H&H bleeding ulcer is less likely. Plan NPO Trend H&H Transfuse as needed Cover with PPI Please see dictated note from Dr. Díaz for full ROS, PE and plan
[2017-02-23 16:07] VITALS: BP 136/85; PULSE 63; TEMP 36.8; Ht 170.2 cm; Wt 122.0 kg
[2017-02-23] MEDS: LORAZEPAM 2 MG/ML 1 ML VIAL IV PRN (16:38)
--- NOTE | 2017-02-23 16:53 | GASTROINTESTINAL CONSULTATION ---
DATE OF CONSULTATION: 02/23/2017 REQUESTING PROVIDER: Dr. Sotelo. CHIEF COMPLAINT: Bright red blood per rectum. HISTORY OF PRESENT ILLNESS: The patient is a 67-year-old female who is a poor historian who presents to the Emergency Room with a complaint of 1 month to 2 months of intermittent hematochezia. The patient notes that she has been contemplating in evaluation for these symptoms. She presented today as she had some worsening of the hematochezia noted in the toilet water. She notes that her stools are somewhat dark, but they are not sticky. She denies taking Pepto-Bismol. She does have a history of a hiatal hernia and has previously had upper endoscopies with Dr. Augustus Dumont. The patient denies having any nausea or vomiting today but does note intermittent right-sided abdominal discomfort. Of note, her surgical history includes a cholecystectomy which was performed a number of years ago. PAST MEDICAL HISTORY: 1. Atrial flutter. 2. Asthma. 3. Lower extremity swelling. 4. Seizure disorder. 5. Anxiety. 6. Reflux. PAST SURGICAL HISTORY: 1. Back surgery. 2. Cholecystectomy. 3. Hysterectomy. 4. Neck surgery. FAMILY HISTORY: No history of colorectal cancer or stomach cancer or esophageal cancer. SOCIAL HISTORY: The patient is a nonsmoker. Denies alcohol consumption. ALLERGIES: ADHESIVE TAPE. OUTPATIENT MEDICATIONS: 1. Eliquis 5 mg twice daily. 2. Docusate 1 mg twice daily. 3. Estrace 1 mg q.a.m. 4. Lasix 20 mg daily. 5. Lamictal 100 mg twice daily. 6. Levetiracetam 500 mg twice daily. 7. Ativan twice daily. 8. Magnesium Oxide 400 mg twice daily. 9. Metoprolol 25 mg daily. 10. Multivitamin. 11. Naproxen 1 tablet daily. 12. Protonix 40 mg twice daily. 13. Ranitidine 150 mg at bedtime. 14. Bactrim 1 tablet daily. 15. Topiramate 100 mg twice daily. P.r.n. medications: Albuterol p.r.n., oxycodone IR p.r.n. REVIEW OF SYSTEMS: GENERAL: No fevers or chills. CARDIAC: No chest pain, no palpitations. PULMONARY: No shortness of breath. No cough today. ENDOCRINE: No polyuria, no polydipsia. MUSCULOSKELETAL: No new joint pains. The patient does have lower extremity swelling. ENT: No difficulty swallowing. NEUROLOGIC: No headache today. No double vision noted the patient does have seizure disorder. GASTROINTESTINAL: Please see his history of present illness. GENITOURINARY: No dysuria noted. PSYCHIATRIC: History of depression. PHYSICAL EXAMINATION: VITAL SIGNS: Temperature 36.8, pulse 62, respiratory rate 18, blood pressure is 157/50, and pulse ox is 94% on room air. HEENT: No scleral icterus noted. LUNGS: Clear to auscultation. HEART: Regular rate and rhythm today. No systolic murmur heard. ABDOMEN: Soft, nontender. No hepatosplenomegaly. EXTREMITIES: Mild lower extremity edema noted. Cranial nerves grossly intact. Motor grossly intact. DERMATOLOGIC: No spider nevi noted. LABORATORY DATA: White blood cell count 6.2, hemoglobin is 11.5, hematocrit is 34.2, and platelet count is 192. PT is 12.0, INR 1.1. Sodium 145, potassium 3.9, chloride is 114, BUN is 15, creatinine is 1.3. AST 10, ALT 14, alkaline phosphatase 95, total protein is 6.9, albumin 4.0, lipase is 248. IMAGING STUDY: Dated 02/23/2017 CT of abdomen. Impression: 1. No acute findings. 2. Fat containing ventral hernia, hiatal hernia, no bowel obstruction noted, small bowel malrotation noted. IMPRESSION: A 67-year-old female presenting to the Emergency Room for evaluation of hematochezia. The patient is somewhat of a poor historian but based on review of her labs there has been no acute change in her labs since last being drawn in December. Based on this, I suspect that the bleeding is likely related to a colorectal etiology, probably anorectal. I would suggest that the Eliquis be discontinued and the patient continued on Protonix. We would suggest continuing to monitor her blood counts overnight. If there is a significant drop, we could offer upper endoscopy during the weekend. Otherwise, plan to do a colonoscopy on Sunday morning for evaluation of hematochezia, at which time we will also do an upper endoscopy. Please call with any questions or concerns. Coverage this weekend to be done by Dr. Feliberto Perera.
[2017-02-23] MEDS: SODIUM CHLORIDE 0.9% 1000ML 1,000 ML IV SCH (17:14)
[2017-02-23] MEDS ORDERED: GI COCKTAIL PO PRN (17:15)
[2017-02-23] MEDS ORDERED: HydrALAZINE HCL 20 MG/ML VIAL IV PRN (17:15)
[2017-02-23] MEDS ORDERED: ALUMINUM/MAGNESIUM SUSP 72 ML, LIDOCAINE HCL 2% VISCOUS SOLN 24 ML, BARCODE IDENTIFIER ... PO PRN ×2 (17:45)
[2017-02-23 20:09] VITALS: BP 122/62; PULSE 57; TEMP 36.8; O2SAT 97
[2017-02-23] MEDS: PANTOprazole INJ 40 MG in SYRINGE 0 ML IV SCH (20:23)
[2017-02-23] MEDS: TOPIRAMATE 100 MG TAB PO SCH (20:24)
[2017-02-23] MEDS: LEVETIRACETAM 500 MG TAB PO SCH (20:25)
[2017-02-23] MEDS: MoRPHine SULFATE 2 MG/ML CARP IV PRN (20:27)
[2017-02-23] MEDS: MoRPHine SULFATE 4 MG/ML 1 ML CARP\\VIAL IV PRN (22:21)
[2017-02-24] VITALS (9 sets, daily range): BP systolic 117–178; BP diastolic 55–97; PULSE 57–76; TEMP 36.3–36.6; O2SAT 94–98
[2017-02-24] MEDS: MoRPHine SULFATE 2 MG/ML CARP IV PRN ×4 (00:40→21:24)
[2017-02-24] MEDS: LORAZEPAM 2 MG/ML 1 ML VIAL IV PRN (00:40)
[2017-02-24] MEDS: SODIUM CHLORIDE 0.9% 1000ML 1,000 ML IV SCH ×3 (03:07→21:24)
[2017-02-24] MEDS: MoRPHine SULFATE 4 MG/ML 1 ML CARP\\VIAL IV PRN (03:37)
[2017-02-24] MEDS ORDERED: LORAZEPAM 2 MG/ML 1 ML VIAL IV STA (04:37)
[2017-02-24] MEDS ORDERED: NURSING VERBAL MED ORDER ONE (04:45)
[2017-02-24 07:08] LABS: MEAN CELL VOLUME 85.4 fL (80-100); MEAN CORPUSCULAR HEMOGLOBIN 28.1 pg (25-34); MEAN CORPUSCULAR HGB CONC 32.9 g/dl (32-36); MEAN PLATELET VOLUME 12.4 fL (7.4-10.4); PLATELET COUNT 151 K/uL (130-400); RED BLOOD COUNT 3.98 M/uL (4.2-5.4); WHITE BLOOD COUNT 5.66 K/uL (4.8-10.8)
[2017-02-24 07:28] LABS: BUN/CREATININE RATIO 9.9 (10-20); CALCIUM 8.5 mg/dl (8.5-10.1); CREATININE 1.2 mg/dl (0.60-1.20); MAGNESIUM 2.3 mg/dl (1.8-2.4); POTASSIUM 3.8 mmol/L (3.5-5.1)
[2017-02-24] MEDS: FUROSEMIDE INJ 10 MG in SYRINGE 0 ML IV SCH (08:11)
[2017-02-24] MEDS: PANTOprazole INJ 40 MG in SYRINGE 0 ML IV SCH ×2 (08:11→21:13)
[2017-02-24] MEDS: TOPIRAMATE 100 MG TAB PO SCH ×2 (08:49→21:15)
[2017-02-24] MEDS: LEVETIRACETAM 500 MG TAB PO SCH ×2 (08:49→21:13)
[2017-02-24] MEDS: SULFAMETHOXAZOLE/TRIMETHOPRIM DS 800/160MG TAB PO SCH (08:49)
[2017-02-24] MEDS: METOPROLOL SUCC 25MG EXT REL TAB PO SCH (08:50)
[2017-02-24] MEDS: ONDANSETRON INJ 2 MG/ML 2 ML VIAL IV PRN (13:16)
--- NOTE | 2017-02-24 16:25 | Progress Note ---
Subjective Date of Service: Feb 24, 2017. Subjective Pt evaluation today including: conversation w/ patient, physical exam, chart review, lab review, review of studies, review of inpatient medication list Pain: denies any pain Voiding: no voiding problems, no incontinence Patient is seen and examined by me. Patient denies chest pain, shortness of breath, dizziness, palpitation or loss of consciousness. Patient is complaining of dark tarry stool. However patient states that she did not experience any bloody bowel movement since yesterday. Patient denies any abdominal pain and urinary symptoms. Patient denies any blood in the urine. Patient denies blurry vision and headache. Patient denies nausea, vomiting and diarrhea. Problem List Medical Problems: (1) Atrial flutter Status: Acute (2) Back strain Status: Acute (3) Bloody stool Status: Acute (4) Diffuse pain Status: Acute (5) Epigastric abdominal pain Status: Acute (6) Forearm abrasion Status: Acute (7) Headache Status: Acute (8) Headache Status: Acute (9) Headache above the eye region Status: Acute (10) Hypertension Status: Acute (11) Left against medical advice Status: Acute (12) Left sided chest pain Status: Acute (13) Left sided chest pain Status: Acute (14) Lower abdominal pain Status: Acute (15) Spasm of back muscles Status: Acute Review of Systems Abdomen: + problem reported (dark tarry stool) All Other Systems: Reviewed and Negative Medications Medications (Trade) Dose Ordered Sig/Galileo Route Start Time Stop Time Status Last Admin Dose Admin Sodium Chloride 1,000 ml @ 100 mls/hr Q10H IV 02/23/17 17:00 03/25/17 14:44 02/24/17 11:44 100 MLS/HR Pantoprazole Sodium/Syringe (Protonix Inj/ Syringe) 10 ml @ 5 mls/min DAILY@09,21 IV 02/23/17 21:00 03/25/17 20:59 02/24/17 08:11 5 MLS/MIN Lamotrigine (Lamictal Tab) 100 mg BID PO 02/23/17 21:00 03/25/17 20:59 02/24/17 08:49 100 MG Levetiracetam (Keppra Tab) 500 mg BID PO 02/23/17 21:00 03/25/17 20:59 02/24/17 08:49 500 MG Trimethoprim/ Sulfamethoxazole (Septra Ds 800/ 160MG Tab) 1 tab DAILY PO 02/24/17 09:00 03/26/17 08:59 02/24/17 08:49 1 TAB Topiramate 100 mg 100 mg BID PO 02/23/17 21:00 03/25/17 20:59 02/24/17 08:49 100 MG Furosemide/Syringe (Lasix Inj/ Syringe) 1 ml @ 4 mls/min DAILY@0900 IV 02/24/17 09:00 03/26/17 08:59 02/24/17 08:11 4 MLS/MIN Metoprolol Succinate (Toprol Xl Tab) 25 mg DAILY PO 02/24/17 09:00 03/26/17 08:59 02/24/17 08:50 25 MG Morphine Sulfate (MoRPHine SULFATE INJ) 4 mg Q4H PRN IV 02/23/17 17:15 03/09/17 17:14 02/24/17 03:37 4 MG Morphine Sulfate 2 mg Q4H PRN IV 02/23/17 17:15 03/09/17 17:14 02/24/17 11:52 2 MG Al Hydroxide/Mg Hydroxide/ Lidocaine HCl/ Barcode (Maalox Susp/ Viscous Lidocaine 2% Soln) Q6H PRN PO 02/23/17 17:45 03/25/17 17:44 02/23/17 18:12 24 ML Lorazepam (Ativan Inj) 1 mg NOW STAT IV 02/24/17 04:37 02/24/17 04:38 DC 02/24/17 04:48 1 MG Objective Vital Signs Date Time Temp Pulse Resp B/P Pulse Ox O2 Delivery O2 Flow Rate FiO2 02/24/17 15:44 36.4 76 20 121/80 94 Room Air 02/24/17 12:00 Room Air 02/24/17 11:29 36.6 61 18 150/84 98 Room Air 02/24/17 08:00 Room Air 02/24/17 07:47 36.5 68 19 135/85 97 Room Air 02/24/17 04:00 Room Air 02/24/17 03:50 36.4 57 16 131/76 95 Room Air 02/24/17 00:25 36.5 61 18 142/85 98 Room Air 02/24/17 00:00 Room Air 02/23/17 20:25 Room Air 02/23/17 20:09 36.8 57 18 122/62 97 Room Air Physical Exam Comments: Gen. appearance: Not in acute distress, awake alert oriented 3. Cardiovascular: S1, S2, regular rate and rhythm. Respiratory: CTA bilateral , no wheezing, no rhonchi Abdomen: Soft, nontender, nondistended, bowel sounds presents. Extremities: Full range of motion without any joint pain. However 1+ edema bilateral lower extremities improved from yesterday Neuro: Awake alert oriented 3 no focal neurological deficits. Laboratory Results Last 24 Hours Test 02/23/17 20:00 02/24/17 06:50 Hemoglobin 11.6 g/dL 11.2 g/dL Hematocrit 35.0 % 34.0 % White Blood Count 5.66 K/uL Red Blood Count 3.98 M/uL Mean Corpuscular Volume 85.4 fL Mean Corpuscular Hemoglobin 28.1 pg Mean Corpuscular Hemoglobin Concent 32.9 g/dl RDW Standard Deviation 46.6 fL RDW Coefficient of Variation 14.9 % Platelet Count 151 K/uL Mean Platelet Volume 12.4 fL Sodium Level 144 mmol/L Potassium Level 3.8 mmol/L Chloride Level 114 mmol/L Carbon Dioxide Level 21 mmol/L Anion Gap 9.0 mmol/L Blood Urea Nitrogen 12 mg/dl Creatinine 1.20 mg/dl Est Creatinine Clear Calc Drug Dose 60.8 ml/min Estimated GFR () 53.8 Estimated GFR (Non- 46.4 BUN/Creatinine Ratio 9.9 Random Glucose 92 mg/dl Calcium Level 8.5 mg/dl Magnesium Level 2.3 mg/dl Assessment and Plan 67 y/o female, with PMHx of asthma, a.fib, bilateral lower extremity edema, seizure disorder, anxiety, and GERD, who presented to the ED because of dark stools and BRBPR x1 month GI bleed w/ melena and BRBPR x1 month: - Hemoglobin is stable, does not require telemetry monitoring - hgb stable at 11.2, recheck in am. - IV NSS @ 100 ml/hr - IV Protonix BID - We will start a clear liquid diet and advance as tolerated - Heme stool positive completed by ED - Consult GI, appreciate recommendations -- Patient follows w/ Dr. Dumont. Per patient, she is scheduled for colonoscopy on 02/28 because of BRBPR A.fb: - Hold Eliquis secondary to GI bleed- per patient, she has not taken in [address] Dumont advised her to discontinue - Continue Metoprolol 25 mg daily Asthma: Continue home inhalers Anxiety: Ativan IV 0.5 mg PRN Chronic lower extremity edema: Switch from Lasix PO 20 mg daily to Lasix IV 10 daily to limit PO intake Seizure disorder: Continue Lamictal 100 mg BID, Levetiracetam 500 mg BID, and Topamax 100 mg BID Hypomagnesium: - Hold Mag-Ox supplement to limit PO intake - Magnesium level of 2.3 GERD: Zantac held. Protonix IV BID h/o cellulitis on chronic suppression therapy: - Continue Bactrim - Follows w/ Dr. Gardner GI Prophylaxis: Maalox PRN, IV Zofran PRN, Colace and/or Milk of Mag PRN DVT prophylaxis: OC and SCDs, chemical therapy contraindicated secondary to GI bleed Code Status: LEVEL I, FULL Continued [facility] stay due to: multiple IV medications needed Discharge planning: home
[2017-02-24] MEDS: LORAZEPAM INJ 0.5 MG in SYRINGE 0.75 ML IV PRN (22:32)
[2017-02-25] MEDS: ONDANSETRON INJ 2 MG/ML 2 ML VIAL IV PRN ×2 (02:19→10:05)
[2017-02-25] MEDS: MoRPHine SULFATE 2 MG/ML CARP IV PRN ×4 (02:19→21:16)
[2017-02-25 06:41] LABS: HEMATOCRIT 34.3 % (37-47); MEAN CELL VOLUME 84.9 fL (80-100); MEAN CORPUSCULAR HEMOGLOBIN 28.5 pg (25-34); MEAN CORPUSCULAR HGB CONC 33.5 g/dl (32-36); MEAN PLATELET VOLUME 11.8 fL (7.4-10.4); PLATELET COUNT 128 K/uL (130-400); RED BLOOD COUNT 4.04 M/uL (4.2-5.4); WHITE BLOOD COUNT 5.22 K/uL (4.8-10.8)
[2017-02-25 07:38] LABS: BUN/CREATININE RATIO 7.6 (10-20); CALCIUM 8.5 mg/dl (8.5-10.1); CREATININE 1.1 mg/dl (0.60-1.20); MAGNESIUM 2.1 mg/dl (1.8-2.4); POTASSIUM 3.6 mmol/L (3.5-5.1)
[2017-02-25 07:43] VITALS: BP 128/83; PULSE 63; TEMP 36.5; O2SAT 99
[2017-02-25] MEDS: PANTOprazole INJ 40 MG in SYRINGE 0 ML IV SCH ×2 (08:16→21:17)
[2017-02-25] MEDS: FUROSEMIDE INJ 10 MG in SYRINGE 0 ML IV SCH (08:16)
[2017-02-25] MEDS: LEVETIRACETAM 500 MG TAB PO SCH ×2 (08:18→21:16)
[2017-02-25] MEDS: TOPIRAMATE 100 MG TAB PO SCH ×2 (08:18→21:16)
[2017-02-25] MEDS: SULFAMETHOXAZOLE/TRIMETHOPRIM DS 800/160MG TAB PO SCH (08:18)
[2017-02-25] MEDS: METOPROLOL SUCC 25MG EXT REL TAB PO SCH (08:19)
[2017-02-25] MEDS: SODIUM CHLORIDE 0.9% 1000ML 1,000 ML IV SCH ×2 (08:22→16:33)
[2017-02-25 15:11] VITALS: BP 146/70; PULSE 63; TEMP 36.5; O2SAT 98
[2017-02-25] MEDS ORDERED: BISACODYL 5 MG TABEC PO ONE (16:00)
--- NOTE | 2017-02-25 16:24 | Progress Note ---
Subjective Date of Service: Feb 25, 2017. Subjective Pt evaluation today including: conversation w/ patient, physical exam, chart review, lab review, review of inpatient medication list Voiding: no voiding problems, no incontinence Pt denies any complains, such as CP, SOB, dizziness, nausea, vomiting and diarrhea. still dark stool per pt, tarry dark. Problem List Medical Problems: (1) Atrial flutter Status: Acute (2) Back strain Status: Acute (3) Bloody stool Status: Acute (4) Diffuse pain Status: Acute (5) Epigastric abdominal pain Status: Acute (6) Forearm abrasion Status: Acute (7) Headache Status: Acute (8) Headache Status: Acute (9) Headache above the eye region Status: Acute (10) Hypertension Status: Acute (11) Left against medical advice Status: Acute (12) Left sided chest pain Status: Acute (13) Left sided chest pain Status: Acute (14) Lower abdominal pain Status: Acute (15) Spasm of back muscles Status: Acute Review of Systems All Other Systems: Reviewed and Negative Objective Vital Signs Date Time Temp Pulse Resp B/P Pulse Ox O2 Delivery O2 Flow Rate FiO2 02/25/17 15:11 36.5 63 16 146/70 98 Room Air 02/25/17 08:00 Room Air 02/25/17 07:43 36.5 63 16 128/83 99 Room Air 02/25/17 00:00 Room Air 02/24/17 23:57 36.3 62 16 117/55 97 Room Air 02/24/17 19:00 98 Room Air 02/24/17 18:57 131/78 02/24/17 17:55 36.4 76 20 94 02/24/17 17:55 36.4 71 16 178/97 96 Room Air Physical Exam Comments: Gen. appearance: Not in acute distress, awake alert oriented 3. Cardiovascular: S1, S2, regular rate and rhythm. Respiratory: CTA bilateral , no wheezing, no rhonchi Abdomen: Soft, nontender, nondistended, bowel sounds presents. Extremities: Full range of motion without any joint pain. However 1+ edema bilateral lower extremities improved from yesterday Neuro: Awake alert oriented 3 no focal neurological deficits. Laboratory Results Last 24 Hours Test 02/25/17 06:22 White Blood Count 5.22 K/uL Red Blood Count 4.04 M/uL Hemoglobin 11.5 g/dL Hematocrit 34.3 % Mean Corpuscular Volume 84.9 fL Mean Corpuscular Hemoglobin 28.5 pg Mean Corpuscular Hemoglobin Concent 33.5 g/dl RDW Standard Deviation 45.5 fL RDW Coefficient of Variation 14.5 % Platelet Count 128 K/uL Mean Platelet Volume 11.8 fL Sodium Level 145 mmol/L Potassium Level 3.6 mmol/L Chloride Level 115 mmol/L Carbon Dioxide Level 21 mmol/L Anion Gap 9.0 mmol/L Blood Urea Nitrogen 8 mg/dl Creatinine 1.10 mg/dl Est Creatinine Clear Calc Drug Dose 66.3 ml/min Estimated GFR () 59.7 Estimated GFR (Non- 51.5 BUN/Creatinine Ratio 7.6 Random Glucose 89 mg/dl Calcium Level 8.5 mg/dl Magnesium Level 2.1 mg/dl Assessment and Plan 67 y/o female, with PMHx of asthma, a.fib, bilateral lower extremity edema, seizure disorder, anxiety, and GERD, who presented to the ED because of dark stools and BRBPR x1 month GI bleed w/ melena and BRBPR x1 month: - Hemoglobin is stable, does not require telemetry monitoring - hgb stable at 11.5, recheck in am. - IV NSS @ 100 ml/hr - IV Protonix BID - We will start a clear liquid diet and advance as tolerated - Heme stool positive completed by ED - Consult GI, appreciate recommendations -- Patient follows w/ Dr. Dumont. Per patient, she is scheduled for colonoscopy on 02/28 because of BRBPR A.fb: - Hold Eliquis secondary to GI bleed- per patient, she has not taken in [address] Dumont advised her to discontinue - Continue Metoprolol 25 mg daily Asthma: Continue home inhalers Anxiety: Ativan IV 0.5 mg PRN Chronic lower extremity edema: Switch from Lasix PO 20 mg daily to Lasix IV 10 daily to limit PO intake Seizure disorder: Continue Lamictal 100 mg BID, Levetiracetam 500 mg BID, and Topamax 100 mg BID Hypomagnesium: - Hold Mag-Ox supplement to limit PO intake - Magnesium level of 2.3 GERD: Zantac held. Protonix IV BID h/o cellulitis on chronic suppression therapy: - Continue Bactrim - Follows w/ Dr. Gardner GI Prophylaxis: Maalox PRN, IV Zofran PRN, Colace and/or Milk of Mag PRN DVT prophylaxis: OC and SCDs, chemical therapy contraindicated secondary to GI bleed Code Status: LEVEL I, FULL Continued [facility] stay due to: multiple IV medications needed Discharge planning: home
[2017-02-25] MEDS ORDERED: POLYETHYLENE (MIRALAX) 17 GM PACK PO SCH (18:00)
[2017-02-25] MEDS: POLYETHYLENE (MIRALAX) 17 GM PACK PO SCH (19:11)
[2017-02-25] MEDS: LORAZEPAM INJ 0.5 MG in SYRINGE 0.75 ML IV PRN (21:25)
[2017-02-26] MEDS: ACETAMINOPHEN 325 MG TAB PO PRN ×2 (00:02→19:11)
[2017-02-26 00:31] VITALS: BP 141/79; PULSE 69; TEMP 36.4; O2SAT 98
[2017-02-26] MEDS: POLYETHYLENE (MIRALAX) 17 GM PACK PO SCH (02:03)
[2017-02-26] MEDS: MoRPHine SULFATE 4 MG/ML 1 ML CARP\\VIAL IV PRN (02:03)
[2017-02-26] MEDS: SODIUM CHLORIDE 0.9% 1000ML 1,000 ML IV SCH ×3 (02:07→16:42)
[2017-02-26 07:45] VITALS: BP 140/80; PULSE 70; TEMP 36.5; O2SAT 97
[2017-02-26] MEDS: FUROSEMIDE INJ 10 MG in SYRINGE 0 ML IV SCH (07:59)
[2017-02-26] MEDS: PANTOprazole INJ 40 MG in SYRINGE 0 ML IV SCH (07:59)
--- NOTE | 2017-02-26 08:40 | Clinical Documentation Query ---
KANG Urban : CLINICAL DOCUMENTATION QUERY Patient is a 67 year old male admitted for GI Bleed with noted melena and BRBPR x 1 month. She noted she was scheduled for upcoming colonoscopy and was instructed to stop taking her Eliquis about one week ago by Dr. Dumont due to the bleeding. She denies excessive NSAID use, alcohol, or coffee. In your clinical opinion is this patient being managed for: ( x) GI bleed possible due to extrinsic circulating anticoagulant, Eliquis ( ) Other explanation of clinical findings (Please Explain) ( ) Unable to determine (Please Define) ( ) Need to Discuss ( ) Not Agree The medical record reflects the following clinical findings, treatment, and risk factors. Clinical Indicators: Treatment: Hold Eliquis, serial hematology, GI consultation, IV Protonix. Risk Factors: Eliquis administration. Please clarify and document your clinical opinion in the progress notes and discharge summary. Terms such as "probable", "suspected", "likely", "questionable", "possible", or "still to be ruled out" are acceptable. IF IN AGREEMENT, YOU MUST DOCUMENT ABOVE DIAGNOSTIC STATEMENT IN DAILY PROGRESS NOTES AND DISCHARGE SUMMARY. This document is not part of the patient's record. Thank You, Oliverio López, RN [phone]
[2017-02-26 08:49] VITALS: O2SAT 97
[2017-02-26] MEDS: SULFAMETHOXAZOLE/TRIMETHOPRIM DS 800/160MG TAB PO SCH (09:00)
[2017-02-26 09:17] LABS: HEMATOCRIT 37.2 % (37-47); MEAN CELL VOLUME 86.5 fL (80-100); MEAN CORPUSCULAR HEMOGLOBIN 28.4 pg (25-34); MEAN CORPUSCULAR HGB CONC 32.8 g/dl (32-36); MEAN PLATELET VOLUME 11.4 fL (7.4-10.4); PLATELET COUNT 191 K/uL (130-400)
[2017-02-26 09:41] LABS: BUN/CREATININE RATIO 4.7 (10-20); CALCIUM 8.8 mg/dl (8.5-10.1); CREATININE 1.2 mg/dl (0.60-1.20); POTASSIUM 3.5 mmol/L (3.5-5.1)
[2017-02-26] MEDS: METOPROLOL SUCC 25MG EXT REL TAB PO SCH (10:32)
[2017-02-26] MEDS: TOPIRAMATE 100 MG TAB PO SCH ×2 (10:32→21:39)
[2017-02-26] MEDS: LEVETIRACETAM 500 MG TAB PO SCH ×2 (10:33→21:37)
[2017-02-26] MEDS ORDERED: PROPOFOL IV EMULSION 10 MG/ML 20 ML VIAL IV ONE ×2 (11:11→12:56)
[2017-02-26] MEDS ORDERED: LIDOCAINE HCL 2% 2 ML VIAL (20MG/ML) ONE ×2 (11:11→12:56)
--- NOTE | 2017-02-26 12:19 | Hospitalist Progress Note ---
Hospitalist Progress Note Date of Service Feb 26, 2017. Subjective Pt evaluation today including: conversation w/ patient, physical exam, chart review, lab review, review of inpatient medication list Voiding: no voiding problems, no incontinence Patient still complains epigastric discomfort; IV Morphine PRN for pain control at this time. +melena and BRBPR. Scheduled for EGD/colonoscopy today. PT screen is recommending PT/OT evaluations due to mobility issues documented by nursing staff. When asked patient about tolerating diet, she states she has not eaten over the weekend. Patient denies any fever, chills, sweats, lightheadedness, dizziness, vision changes, CP, palpitations, edema, SOB, wheezing, cough, nausea , vomiting, diarrhea, urinary symptoms, numbness/tingling, weakness, muscle/ joint pain, anxiety/depression, or new skin discoloration/changes. Medications Current Inpatient Medications Medications (Trade) Dose Ordered Sig/Galileo Route Start Time Stop Time Status Last Admin Dose Admin Sodium Chloride (Nss 1000ml) 1,000 ml @ 100 mls/hr Q10H IV 02/23/17 17:00 03/25/17 14:44 02/26/17 05:44 100 MLS/HR Acetaminophen (Tylenol Tab) 650 mg Q4H PRN PO 02/23/17 14:45 03/25/17 14:44 02/26/17 00:02 650 MG Al Hydrox/Mg Hydrox/Simethicone (Maalox Max Susp) 15 ml Q4H PRN PO 02/23/17 14:45 03/25/17 14:44 Magnesium Hydroxide (Milk Of Magnesia Susp) 30 ml Q12H PRN PO 02/23/17 14:45 03/25/17 14:44 Ondansetron HCl (Zofran Inj) 4 mg Q6H PRN IV 02/23/17 14:45 03/25/17 14:44 02/25/17 10:05 4 MG Nitroglycerin (Nitrostat Tab) 0.4 mg UD PRN SL 02/23/17 14:45 03/25/17 14:44 Polyethylene 17 gm 17 gm DAILY PRN PO 02/23/17 14:45 03/25/17 14:44 Pantoprazole Sodium/Syringe (Protonix Inj/ Syringe) 10 ml @ 5 mls/min DAILY@09,21 IV 02/23/17 21:00 03/25/17 20:59 02/26/17 07:59 5 MLS/MIN Lorazepam (Ativan Inj) 0.5 mg Q6H PRN IV 02/23/17 14:45 03/25/17 14:44 02/24/17 00:40 0.5 MG Albuterol (Ventolin Hfa Inhaler) 2 puffs Q6H PRN INH 02/23/17 14:45 03/25/17 14:44 Lamotrigine (Lamictal Tab) 100 mg BID PO 02/23/17 21:00 03/25/17 20:59 02/26/17 10:32 100 MG Levetiracetam (Keppra Tab) 500 mg BID PO 02/23/17 21:00 03/25/17 20:59 02/26/17 10:33 500 MG Trimethoprim/ Sulfamethoxazole (Septra Ds 800/ 160MG Tab) 1 tab DAILY PO 02/24/17 09:00 03/26/17 08:59 02/25/17 08:18 1 TAB Topiramate 100 mg 100 mg BID PO 02/23/17 21:00 03/25/17 20:59 02/26/17 10:32 100 MG Furosemide/Syringe (Lasix Inj/ Syringe) 1 ml @ 4 mls/min DAILY@0900 IV 02/24/17 09:00 03/26/17 08:59 02/26/17 07:59 4 MLS/MIN Metoprolol Succinate 25 mg 25 mg DAILY PO 02/24/17 09:00 03/26/17 08:59 02/26/17 10:32 25 MG Lorazepam/Syringe (Ativan Inj/ Syringe) 1 ml @ 1 mls/min Q6H PRN IV 02/23/17 15:30 03/25/17 15:29 02/25/17 21:25 1 MLS/MIN Morphine Sulfate (MoRPHine SULFATE INJ) 4 mg Q4H PRN IV 02/23/17 17:15 03/09/17 17:14 02/26/17 02:03 4 MG Morphine Sulfate (MoRPHine SULFATE INJ) 2 mg Q4H PRN IV 02/23/17 17:15 03/09/17 17:14 02/25/17 21:16 2 MG Hydralazine HCl 10 mg Q4H PRN IV 02/23/17 17:15 03/25/17 17:14 Al Hydroxide/Mg Hydroxide/ Lidocaine HCl/ Barcode (Maalox Susp/ Viscous Lidocaine 2% Soln) Q6H PRN PO 02/23/17 17:45 03/25/17 17:44 02/23/17 18:12 24 ML Objective Vital Signs Date Time Temp Pulse Resp B/P Pulse Ox O2 Delivery O2 Flow Rate FiO2 02/26/17 11:32 Room Air 02/26/17 11:23 36.6 76 20 148/68 100 Room Air 76 02/26/17 08:49 97 Room Air 02/26/17 07:45 36.5 70 20 140/80 97 Room Air 02/26/17 02:48 02/26/17 00:31 36.4 69 18 141/79 98 Room Air 02/25/17 23:54 Room Air 02/25/17 15:11 36.5 63 16 146/70 98 Room Air Physical Exam General Appearance: no apparent distress, + obese Eyes: normal inspection, PERRL ENT: hearing grossly normal Neck: supple Respiratory/Chest: lungs clear, no respiratory distress, no accessory muscle use Cardiovascular: + systolic murmur, + irregularly irregular (rate controlled ) Abdomen: normal bowel sounds, soft, + tenderness (diffuse ttp ) Extremities: no calf tenderness, + swelling (non pitting edema noted to bilateral lower extremities ) Neurologic/Psychiatric: alert, oriented x 3 Skin: normal color, warm/dry, no rash Laboratory Results Last 24 Hours Test 02/26/17 08:48 White Blood Count 6.00 K/uL Red Blood Count 4.30 M/uL Hemoglobin 12.2 g/dL Hematocrit 37.2 % Mean Corpuscular Volume 86.5 fL Mean Corpuscular Hemoglobin 28.4 pg Mean Corpuscular Hemoglobin Concent 32.8 g/dl RDW Standard Deviation 46.5 fL RDW Coefficient of Variation 14.8 % Platelet Count 191 K/uL Mean Platelet Volume 11.4 fL Sodium Level 146 mmol/L Potassium Level 3.5 mmol/L Chloride Level 113 mmol/L Carbon Dioxide Level 25 mmol/L Anion Gap 8.0 mmol/L Blood Urea Nitrogen 6 mg/dl Creatinine 1.20 mg/dl Est Creatinine Clear Calc Drug Dose 60.8 ml/min Estimated GFR () 53.8 Estimated GFR (Non- 46.4 BUN/Creatinine Ratio 4.7 Random Glucose 93 mg/dl Calcium Level 8.8 mg/dl Magnesium Level 2.0 mg/dl Assessment and Plan 67 y/o female, with PMHx of asthma, a.fib, bilateral lower extremity edema, seizure disorder, anxiety, and GERD, who presented to the ED because of dark stools and BRBPR x1 month GI bleed w/ melena and BRBPR x1 month: - Admit to tele for cardiac monitoring -- Transferred to med/surg on 02/24 - IV NSS @ 100 ml/hr- d/c once tolerating full diet - IV Protonix BID- transition to Protonix PO daily - IV Morphine for pain control- d/c on 02/26 for preparation for discharge - UA unremarkable - Follow CBC and PRP - Heme stool positive completed by ED - Consult GI, appreciate recommendations -- EGD on 02/26- large hiatal hernia, gastritis- biopsied, normal duodenum -- Colonoscopy on 02/26- internal hemorrhoids, diverticulosis, inadequate bowel prep- repeat scope in 3 months outpatient a.fb: - Hold Eliquis secondary to GI bleed - Continue Metoprolol 25 mg daily Asthma: Continue home inhalers Anxiety: Ativan IV 0.5 mg PRN Chronic lower extremity edema: Resume Lasix 20 mg PO daily Seizure disorder: Continue Lamictal 100 mg BID, Levetiracetam 500 mg BID, and Topamax 100 mg BID Hypomagnesium: - Hold Mag-Ox supplement to limit PO intake- resume at discharge - Follow mag level, replete PRN w/ IV mag GERD: Zantac held. Protonix h/o cellulitis on chronic suppression therapy: - Continue Bactrim - Follows w/ Dr. Gardner GI Prophylaxis: Maalox PRN, IV Zofran PRN, Colace and/or Milk of Mag PRN DVT prophylaxis: OC and SCDs, chemical therapy contraindicated secondary to GI bleed Code Status: LEVEL I, FULL Dispo: - From home, lives alone- has [facility] - Recommend PT/OT evaluations prior to discharge - Pending EGD/colonoscopy results today (02/26)- goal to d/c IV Morphine and IVF. Advance diet as tolerated. Transition to PO medications. PT/OT evaluations. Hopeful discharge to home tomorrow (02/27).
--- NOTE | 2017-02-26 12:38 | GI REPORT ---
Procedure Date: 02/26/2017 11:58 AM Procedure: Upper GI endoscopy Indications: Melena Medicines: General Anesthesia Complications: No immediate complications. Estimated blood loss: None. Estimated Blood Loss: Estimated blood loss: none. Procedure: Pre-Anesthesia Assessment: - Pre-Anesthesia Assessment: - Prior to the procedure, a History and Physical was performed, and patient medications, allergies and sensitivities were reviewed. The patient's tolerance of previous anesthesia was reviewed. Please see [employer] for complete details. - The risks and benefits of the procedure and the sedation options and risks were discussed with the patient. All questions were answered and informed consent was obtained. - Patient identification and proposed procedure were verified prior to the procedure by the physician and the nurse. The procedure was verified in the pre-procedure area in the procedure room. After obtaining informed consent, the endoscope was passed carefully and meticuously under direct vision and only advanced when the lumen was clearly identified, C02 insuflation was utilized throughout the entirity of the procedure. Throughout the procedure, the patient's blood pressure, pulse, and oxygen saturations were monitored continuously. After obtaining informed consent, the endoscope was passed under direct vision. Throughout the procedure, the patient's blood pressure, pulse, and oxygen saturations were monitored continuously. The scope was introduced through the mouth, and advanced to the second part of duodenum. The upper GI endoscopy was accomplished without difficulty. The patient tolerated the procedure well. Findings: A large hiatus hernia was present. Localized moderate inflammation characterized by adherent blood and erythema was found in the gastric antrum. Biopsies were taken with a cold forceps for histology. The examined duodenum was normal. Impression: - Large hiatus hernia. - Gastritis. Biopsied. - Normal examined duodenum. Recommendation: - Await pathology results. - [facility] same day. - Once daily oral PPI - Colonoscopy today Augustus Dumont MD 02/26/2017 12:37:43 PM This report has been signed electronically. Note Initiated On: 02/26/2017 11:58 AM I attest to the content of the Intraoperative Record and orders documented therein, exceptions below
--- NOTE | 2017-02-26 12:40 | GI REPORT ---
Procedure Date: 02/26/2017 12:09 PM Procedure: Colonoscopy Indications: Rectal bleeding Medicines: General Anesthesia Complications: No immediate complications. Estimated blood loss: None. Estimated Blood Loss: Estimated blood loss: none. Procedure: Pre-Anesthesia Assessment: - Pre-Anesthesia Assessment: - Prior to the procedure, a History and Physical was performed, and patient medications, allergies and sensitivities were reviewed. The patient's tolerance of previous anesthesia was reviewed. Please see [employer] for complete details. - The risks and benefits of the procedure and the sedation options and risks were discussed with the patient. All questions were answered and informed consent was obtained. - Patient identification and proposed procedure were verified prior to the procedure by the physician and the nurse. The procedure was verified in the pre-procedure area in the procedure room. After obtaining informed consent, the endoscope was passed carefully and meticuously under direct vision and only advanced when the lumen was clearly identified, C02 insuflation was utilized throughout the entirity of the procedure. Throughout the procedure, the patient's blood pressure, pulse, and oxygen saturations were monitored continuously. After I obtained informed consent, the scope was passed under direct vision. Throughout the procedure, the patient's blood pressure, pulse, and oxygen saturations were monitored continuously. The scope was introduced through the anus and advanced to the cecum, identified by appendiceal orifice and ileocecal valve. The colonoscopy was performed without difficulty. The patient tolerated the procedure well. The quality of the bowel preparation was inadequate. Findings: Multiple small-mouthed diverticula were found in the sigmoid colon. Internal hemorrhoids were found during retroflexion. No evidence of any blood in the GI tract. Impression: - Preparation of the colon was inadequate. - Diverticulosis in the sigmoid colon. - Internal hemorrhoids. - No specimens collected. Recommendation: - [facility] for [facility] same day. - Given lack of anemia, bleeding may be from diverticuli or hemorrhoids, however, given prep quality will need repeat outpatient colonoscopy with 2 day prep to be scheduled within 3 months. Augustus Dumont MD 02/26/2017 12:40:13 PM This report has been signed electronically. Note Initiated On: 02/26/2017 12:09 PM I attest to the content of the Intraoperative Record and orders documented therein, exceptions below
--- NOTE | 2017-02-26 13:39 | Anesthesiology Progress Note ---
Anesthesia Post Op Note Date & Time Feb 26, 2017 at 13:38 Vital Signs Pain Intensity: 0 Vital Signs Past 12 Hours Date Time Temp Pulse Resp B/P Pulse Ox O2 Delivery O2 Flow Rate FiO2 02/26/17 13:01 63 20 109/68 98 Room Air 02/26/17 12:46 68 20 111/63 100 Room Air 68 02/26/17 11:32 Room Air 02/26/17 11:23 36.6 76 20 148/68 100 Room Air 76 02/26/17 08:49 97 Room Air 02/26/17 07:45 36.5 70 20 140/80 97 Room Air 02/26/17 02:48 Notes Mental Status: alert / awake / arousable, participated in evaluation Pt Amnestic to Procedure: Yes Nausea / Vomiting: adequately controlled Pain: adequately controlled Airway Patency, RR, SpO2: stable & adequate BP & HR: stable & adequate Hydration State: stable & adequate Anesthetic Complications: no major complications apparent
[2017-02-26 13:58] VITALS: BP 140/84; PULSE 65; TEMP 36.2; O2SAT 98
[2017-02-26 15:10] VITALS: BP 153/82; PULSE 67; TEMP 36.6; O2SAT 99
[2017-02-26 16:10] VITALS: O2SAT 99
[2017-02-26] MEDS: ONDANSETRON INJ 2 MG/ML 2 ML VIAL IV PRN (19:11)
[2017-02-27] VITALS: BP 141/79; PULSE 62; TEMP 36.5; O2SAT 95
[2017-02-27] MEDS: SODIUM CHLORIDE 0.9% 1000ML 1,000 ML IV SCH (01:47)
[2017-02-27 07:44] VITALS: BP 177/85; PULSE 69; TEMP 36.6; O2SAT 96
[2017-02-27 07:58] LABS: HEMATOCRIT 33.3 % (37-47); MEAN CELL VOLUME 83.3 fL (80-100); MEAN CORPUSCULAR HEMOGLOBIN 28.3 pg (25-34); MEAN CORPUSCULAR HGB CONC 33.9 g/dl (32-36); MEAN PLATELET VOLUME 11.4 fL (7.4-10.4); PLATELET COUNT 166 K/uL (130-400); WHITE BLOOD COUNT 5.09 K/uL (4.8-10.8)
[2017-02-27] MEDS: LEVETIRACETAM 500 MG TAB PO SCH (08:22)
[2017-02-27] MEDS: SULFAMETHOXAZOLE/TRIMETHOPRIM DS 800/160MG TAB PO SCH (08:23)
[2017-02-27] MEDS: TOPIRAMATE 100 MG TAB PO SCH (08:23)
[2017-02-27] MEDS: METOPROLOL SUCC 25MG EXT REL TAB PO SCH (08:24)
[2017-02-27 08:34] LABS: BUN/CREATININE RATIO 4.7 (10-20); CALCIUM 8.6 mg/dl (8.5-10.1); CREATININE 1.1 mg/dl (0.60-1.20); POTASSIUM 3.9 mmol/L (3.5-5.1)
[2017-02-27] MEDS ORDERED: FUROSEMIDE 20 MG TAB PO SCH (09:00)
[2017-02-27] MEDS ORDERED: PANTOprazole SOD 40 MG TAB PO SCH (09:00)
--- NOTE | 2017-02-27 09:33 | Discharge Instructions ---
Discharge Instructions Date of Service Feb 27, 2017. Admission Reason for Admission: Bloody Stool, Epigastric Abdominal Pain Discharge Discharge Diagnosis / Problem: Melena/BRBPR Discharge Goals Goal(s): Decrease discomfort, Learn about illness, Diagnostic testing, Therapeutic intervention, Prevent Disease Progression Activity Recommendations Activity Limitations: resume your previous activity . Instructions / Follow-Up Instructions / Follow-Up Resume all regular home medications as prescribed We have discussed the option of restarting vs holding Xarelto at this time. You have decided that you would like to resume Xarelto at this time. You have been given a script for blood work on Sunday (02/27) to check you hemoglobin (blood count)- the results will be forwarded to Dr. Escoto It is important to continue to monitor your stools- any changes in stools, such as, dark/tarry, obvious blood, or lightheadedness/dizziness, weakness, or fatigue If you notice any of these signs/symptoms please seek medical evaluation [facility] Please avoid excess coffee drinking, alcohol use, or NSAID (ex: Aspirin, Naprosyn, Motrin, Ibuprofen) as these can be irritating to the stomach and cause bleeding Dr. Dumont would like to repeat a colonoscopy in 3 months. Please call the office to setup a follow-up appointment. Office # [phone] Please follow-up with your PCP within 5-7 days. I have asked our director case to setup a follow-up appointment- if you do not hear of an appointment in 1-2 days, please call the office at # [phone] Please follow-up with your PCP within 5-7 days Please follow-up/keep all of your subspecialty appointments Current Hospital Diet Patient's current hospital diet: AHA Diet (Heart Healthy) Discharge Diet Recommended Diet: AHA Diet (Heart Healthy) Procedures Procedures Performed: 1. EGD,BX; COLONOSCOPY 2. Abodminal/pelvic CT 3. Chest x-ray Pending Studies Studies pending at discharge: yes List of pending studies: EGD biopsy Laboratory Results Last 24 Hours Test 02/27/17 07:45 White Blood Count 5.09 K/uL Red Blood Count 4.00 M/uL Hemoglobin 11.3 g/dL Hematocrit 33.3 % Mean Corpuscular Volume 83.3 fL Mean Corpuscular Hemoglobin 28.3 pg Mean Corpuscular Hemoglobin Concent 33.9 g/dl RDW Standard Deviation 44.4 fL RDW Coefficient of Variation 14.5 % Platelet Count 166 K/uL Mean Platelet Volume 11.4 fL Sodium Level 149 mmol/L Potassium Level 3.9 mmol/L Chloride Level 121 mmol/L Carbon Dioxide Level 18 mmol/L Anion Gap 10.0 mmol/L Blood Urea Nitrogen 5 mg/dl Creatinine 1.10 mg/dl Est Creatinine Clear Calc Drug Dose 66.3 ml/min Estimated GFR () 59.7 Estimated GFR (Non- 51.5 BUN/Creatinine Ratio 4.7 Random Glucose 110 mg/dl Calcium Level 8.6 mg/dl Medical Emergencies . Who to Call and When: Medical Emergencies: If at any time you feel your situation is an emergency, please call 911 immediately. . Non-Emergent Contact Non-Emergency issues call your: Primary Care Provider . . "Provider Documentation" section prepared by Dawna Beach. VTE Core Measure Inpt VTE Proph given/why not?: T.E.D. Stockings (Chemical therapy held secondary to GI bleeding ), SCD's, Contraindicated
--- NOTE | 2017-02-27 09:48 | Discharge Summary ---
Discharge Summary Date of Service Feb 27, 2017. Discharge Summary Admission Date: Feb 23, 2017 at 14:56 Discharge Date: Feb 27, 2017 Discharge Disposition: Home Principal Diagnosis: Melena/BRBPR Problems/Secondary Diagnoses: 1. a.fib 2. Asthma 3. Anxiety 4. Chronic lower extremity edema 5. Seizure disorder 6. Hypomagnesium 7. GERD 8. h/o cellulitis on chronic suppression therapy: Immunizations: Have You Had Influenza Vaccine: Yes Influenza Vaccine Date: Sep 10, 2011 History of Tetanus Vaccine?: Yes Tetanus Immunization Date: Mar 07, 1997 History of Pneumococcal: Yes Pneumococcal Date: Sep 09, 2011 History of Hepatitis B Vaccine: No Hepatitis Immunization Date: Jul 01, 2006 Procedures: DICTATED BY: Augustus Dumont MD Procedure Date: 02/26/2017 12:09 PM Procedure: Colonoscopy Indications: Rectal bleeding Medicines: General Anesthesia Complications: No immediate complications. Estimated blood loss: None. Estimated Blood Loss: Estimated blood loss: none. Procedure: Pre-Anesthesia Assessment: - Pre-Anesthesia Assessment: - Prior to the procedure, a History and Physical was performed, and patient medications, allergies and sensitivities were reviewed. The patient's tolerance of previous anesthesia was reviewed. Please see [employer] for complete details. - The risks and benefits of the procedure and the sedation options and risks were discussed with the patient. All questions were answered and informed consent was obtained. - Patient identification and proposed procedure were verified prior to the procedure by the physician and the nurse. The procedure was verified in the pre-procedure area in the procedure room. After obtaining informed consent, the endoscope was passed carefully and meticuously under direct vision and only advanced when the lumen was clearly identified, C02 insuflation was utilized throughout the entirity of the procedure. Throughout the procedure, the patient's blood pressure, pulse, and oxygen saturations were monitored continuously. After I obtained informed consent, the scope was passed under direct vision. Throughout the procedure, the patient's blood pressure, pulse, and oxygen saturations were monitored continuously. The scope was introduced through the anus and advanced to the cecum, identified by appendiceal orifice and ileocecal valve. The colonoscopy was performed without difficulty. The patient tolerated the procedure well. The quality of the bowel preparation was inadequate. Findings: Multiple small-mouthed diverticula were found in the sigmoid colon. Internal hemorrhoids were found during retroflexion. No evidence of any blood in the GI tract. Impression: - Preparation of the colon was inadequate. - Diverticulosis in the sigmoid colon. - Internal hemorrhoids. - No specimens collected. Recommendation: - [facility]. - Given lack of anemia, bleeding may be from diverticuli or hemorrhoids, however, given prep quality will need repeat outpatient colonoscopy with 2 day prep to be scheduled within 3 months. Augustus Dumont MD 02/26/2017 12:40:13 PM This report has been signed electronically. Note Initiated On: 02/26/2017 12:09 PM I attest to the content of the Intraoperative Record and orders documented therein, exceptions below Dictated: 02/26/17 1209 Signed: 02/26/17 1239 The status of this report is Signed. Draft = Not yet reviewed or approved by Medical Physician. Signed = Reviewed and approved by Medical Physician. DICTATED BY: Augustus Dumont MD Procedure Date: 02/26/2017 11:58 AM Procedure: Upper GI endoscopy Indications: Melena Medicines: General Anesthesia Complications: No immediate complications. Estimated blood loss: None. Estimated Blood Loss: Estimated blood loss: none. Procedure: Pre-Anesthesia Assessment: - Pre-Anesthesia Assessment: - Prior to the procedure, a History and Physical was performed, and patient medications, allergies and sensitivities were reviewed. The patient's tolerance of previous anesthesia was reviewed. Please see [employer] for complete details. - The risks and benefits of the procedure and the sedation options and risks were discussed with the patient. All questions were answered and informed consent was obtained. - Patient identification and proposed procedure were verified prior to the procedure by the physician and the nurse. The procedure was verified in the pre-procedure area in the procedure room. After obtaining informed consent, the endoscope was passed carefully and meticuously under direct vision and only advanced when the lumen was clearly identified, C02 insuflation was utilized throughout the entirity of the procedure. Throughout the procedure, the patient's blood pressure, pulse, and oxygen saturations were monitored continuously. After obtaining informed consent, the endoscope was passed under direct vision. Throughout the procedure, the patient's blood pressure, pulse, and oxygen saturations were monitored continuously. The scope was introduced through the mouth, and advanced to the second part of duodenum. The upper GI endoscopy was accomplished without difficulty. The patient tolerated the procedure well. Findings: A large hiatus hernia was present. Localized moderate inflammation characterized by adherent blood and erythema was found in the gastric antrum. Biopsies were taken with a cold forceps for histology. The examined duodenum was normal. Impression: - Large hiatus hernia. - Gastritis. Biopsied. - Normal examined duodenum. Recommendation: - Await pathology results. - [facility] possible [facility] same day. - Once daily oral PPI - Colonoscopy today Augustus Dumont MD 02/26/2017 12:37:43 PM This report has been signed electronically. Note Initiated On: 02/26/2017 11:58 AM I attest to the content of the Intraoperative Record and orders documented therein, exceptions below Dictated: 02/26/17 1158 Signed: 02/26/17 1237 The status of this report is Signed. Draft = Not yet reviewed or approved by Medical Physician. Signed = Reviewed and approved by Medical Physician. CHEST ONE VIEW PORTABLE CLINICAL HISTORY: abdominal pain pain COMPARISON STUDY: 12/26/2016 FINDINGS: Mild stable cardia megaly. Lungs are clear. Diaphragms smooth. IMPRESSION: Mild stable cardiomegaly. Otherwise negative study Electronically signed by: Liu Collins M.D. 02/23/2017 12:49 PM Dictated Date/Time: 02/23/2017 12:49 PM The status of this report is Signed. Draft = Not yet reviewed or approved by Radiologist. Signed = Reviewed and approved by Radiologist. CT SCAN OF THE ABDOMEN AND PELVIS WITHOUT CONTRAST CLINICAL HISTORY: Abdominal pain. GI bleeding. Pedicles disease. COMPARISON STUDY: 12/04/2016 TECHNIQUE: CT scan of the abdomen and pelvis was performed from the lung bases to the proximal femurs. Images are reviewed in the axial, sagittal, and coronal planes. IV contrast was not administered for this examination. CT DOSE: 1515.11 mGy.cm FINDINGS: Lower chest: There is a hiatal hernia. Liver: There is an 8 mm hypodensity within the inferior aspect of the right hepatic lobe, likely representing a cyst. This remain stable. Gallbladder: Surgically absent Spleen: Normal in size and attenuation. Pancreas: Unremarkable. Adrenal glands: Unremarkable. Kidneys: There is a 5.1 cm indeterminate exophytic right renal mass. An ultrasound study of July 2015 revealed this to represent a cyst. No renal calculi are visualized. There is no hydronephrosis. Bowel: There are no transition zones indicate bowel obstruction. There is no evidence of acute diverticulitis. There is evidence of a small bowel malrotation. Peritoneum: There is no intraperitoneal free air or abdominal ascites. Multiple fat-containing ventral hernias are again visualized. Vasculature: The abdominal aorta is normal in course and caliber. Adenopathy: None. Pelvic viscera: The uterus appears surgically absent. Skeletal structures: No destructive osseous lesions are seen. There are postsurgical changes of an L4-5 discectomy and spinal fusion IMPRESSION: 1. No acute findings within the abdomen or pelvis 2. Multiple fat-containing ventral hernia similar to the prior study 3. Hiatal hernia. 4. No evidence of bowel obstruction. No evidence of free air 5. Small bowel malrotation 6. No renal, ureteral, or bladder calculi identified Electronically signed by: Pedro Pablo Sharpe M.D. 02/23/2017 1:46 PM Dictated Date/Time: 02/23/2017 1:35 PM The status of this report is Signed. Draft = Not yet reviewed or approved by Radiologist. Signed = Reviewed and approved by Radiologist. Consultations: GI- Dr. Dumont Medication Reconciliation Continued Medications: Albuterol Hfa (Ventolin Hfa) 200 Puffs/34768 Mcg Aers 2 PUFFS PO UD PRN for SOB/Wheezing Albuterol Sulf (Proventil 0.083% 2.5MG/3ML) 2.5 Mg/3 Ml Nebu 1 DOSE NEB UD PRN for SOB/Wheezing Albuterol Sulfate (Proair Respiclick) 108 Mcg/Act Aer 2 PUFF INH QID PRN for Shortness of Breath Apixaban (Eliquis) 5 Mg Tab 5 MG PO BID Docusate Sodium (Colace) 100 Mg Cap 1 CAP PO BID Estradiol (Estrace) 1 Mg Tab 1 MG PO QAM, TAB Furosemide (Lasix) 20 Mg Tab 20 MG PO QAM Lamotrigine (Lamictal) 100 Mg Tab 100 MG PO BID, TAB Levetiractam (Levetiracetam) 500 Mg Tab 500 MG PO BID Lorazepam (Ativan) 0.5 Mg Tab 0.5 MG PO BID Magnesium Oxide (Mag-Ox) 400 Mg Tab 400 MG PO BID, TAB Metoclopramide Hcl (Metoclopramide Hcl) 5 Mg Tab 5 MG PO BID Metoprolol Succinate (Metoprolol Succinate ER) 25 Mg Tabcr 25 MG PO DAILY Multivitamin (Multivitamin) Tab 1 TAB PO DAILY, TAB Oxycodone Ir (Roxicodone Ir) 5 Mg Tab 1-2 TAB PO Q4H PRN for Severe Pain, #12 TAB Pantoprazole Sodium (Protonix) 40 Mg Tab 40 MG PO BID Potassium Chloride Microencaps (Potassium Chloride Er) 20 Meq Tab 20 MEQ PO DAILY Sulfa/Trimethoprim (Bactrim Ds 800MG/160MG) Tab 1 TAB PO DAILY, #6 TAB Topiramate (Topiramate) 100 Mg Tab 100 MG PO BID Discontinued Medications: Naproxen Sodium (Naproxen Sodium Cr) 375 Mg Tab 1 TAB PO DAILY Ranitidine HCl (Ranitidine HCl) 150 Mg Tab 150 MG PO HS Referrals At Discharge Follow up Referrals: Technical Support 1 Software Engineer Referral - Please Call For Appointment with Augustus Dumont MD Discharge Exam Review of Systems: Constitutional: No chills, No fatigue, No fever, No sweats, No weakness Respiratory: No cough, No hemoptysis, No shortness of breath Cardiovascular: No chest pain, No edema, No palpitations Abdomen: No GI bleeding, No constipation, No diarrhea, No nausea, No pain, No vomiting Musculoskeletal: No calf pain, No joint pain, No muscle pain, No swelling Genitourinary - Female: No dysuria, No hematuria Neurologic: No numbness/tingling, No weakness Psychiatric: No anxiety, No depression symptoms Hematologic / Lymphatic: No abnormal bleeding/bruising Integumentary: No itch, No new/changing skin lesions, No rash Physical Exam: General Appearance: no apparent distress, + obese Eyes: normal inspection, PERRL ENT: hearing grossly normal Neck: supple Respiratory/Chest: lungs clear, no respiratory distress, no accessory muscle use Cardiovascular: + irregularly irregular (rate controlled ) Abdomen / GI: normal bowel sounds, non tender, soft Extremities: no calf tenderness, + swelling (bilateral lower extremity non pitting edema ) Neurologic/Psychiatric: alert, normal mood/affect, oriented x 3 Skin: normal color, warm/dry, no rash Hospital Course H&P ON ADMISSION: Patient is a pleasant 67 y/o female, with PMHx of asthma, a.fib, bilateral lower extremity edema, seizure disorder, anxiety, and GERD, who presented to the ED because of dark stools and BRBPR x1 month. She is a poor historian with her health history. According to patient, she has been following with Dr. Dumont for approximately one month now due to BRBPR. She is scheduled for a colonoscopy on 02/28. She was instructed to stop taking her Eliquis [address] Dumont due to the bleeding. She states her dark stools have been ongoing for 1 month now but she did not tell GI about it. She admits to epigastric discomfort with nausea and vomiting. She denies h/o of PUD. She denies excessive NSAID use, alcohol, or coffee. +anxiety- patient tearful/ worried w/ everything going on. According to patient, she has had lower abdominal surgery in the past, but cannot elaborate. When asked about her surgical history, patient states "I don't remember, there were too many of them. " Patient denies any fever, chills, sweats, lightheadedness, dizziness, vision changes, CP, palpitations, edema, SOB, wheezing, cough, diarrhea, urinary symptoms, numbness/tingling, weakness, muscle/joint pain, depression, active bleeding, or new skin discoloration/changes. Physical Exam Vital Signs Date Time Temp Pulse Resp B/P Pulse Ox O2 Delivery O2 Flow Rate FiO2 02/23/17 14:31 67 18 157/101 98 Room Air 02/23/17 12:36 69 18 120/77 92 Room Air 02/23/17 10:58 36.8 67 18 156/79 99 Room Air General Appearance: no apparent distress, + obese Head: normocephalic, atraumatic Eyes: PERRL ENT: hearing grossly normal Neck: supple Respiratory/Chest: lungs clear, no respiratory distress, no accessory muscle use Cardiovascular: + irregularly irregular (rate controlled) Abdomen/GI: normal bowel sounds, non tender, soft Back: normal inspection Extremities/Musculoskelatal: no calf tenderness, + swelling (+1 pitting edema of bilateral lower extremities ) Neurologic/Psych: alert, oriented x 3, + pertinent finding (anxious ) Skin: normal color, warm/dry, no rash Diagnostics Laboratory Results Results Past 24 Hours Test 02/23/17 11:50 02/23/17 12:05 Range/Units Urine Color YELLOW Urine Appearance CLEAR CLEAR Urine pH 5.5 4.5-7.5 Urine Specific [place] 1.010 1.000-1.030 Urine Protein NEG NEG Urine Glucose (UA) NEG NEG Urine Ketones NEG NEG Urine Occult Blood NEG NEG Urine Nitrite NEG NEG Urine Bilirubin NEG NEG Urine Urobilinogen NEG NEG Urine Leukocyte Esterase TRACE NEG Urine WBC (Auto) 1-5 0-5 /hpf Urine RBC (Auto) 0-4 0-4 /hpf Urine Hyaline Casts (Auto) 0 0-5 /lpf Urine Epithelial Cells (Auto) 0-5 0-5 /lpf Urine Bacteria (Auto) NEG NEG White Blood Count 6.20 4.8-10.8 K/uL Red Blood Count 4.11 4.2-5.4 M/uL Hemoglobin 11.5 12.0-16.0 g/dL Hematocrit 34.2 37-47 % Mean Corpuscular Volume 83.2 80-100 fL Mean Corpuscular Hemoglobin 28.0 25-34 pg Mean Corpuscular Hemoglobin Concent 33.6 32-36 g/dl Platelet Count 192 130-400 K/uL Mean Platelet Volume 11.2 7.4-10.4 fL Neutrophils (%) (Auto) 71.2 % Lymphocytes (%) (Auto) 18.2 % Monocytes (%) (Auto) 7.4 % Eosinophils (%) (Auto) 2.6 % Basophils (%) (Auto) 0.6 % Neutrophils # (Auto) 4.41 1.4-6.5 K/uL Lymphocytes # (Auto) 1.13 1.2-3.4 K/uL Monocytes # (Auto) 0.46 0.11-0.59 K/uL Eosinophils # (Auto) 0.16 0-0.5 K/uL Basophils # (Auto) 0.04 0-0.2 K/uL RDW Standard Deviation 44.3 36.4-46.3 fL RDW Coefficient of Variation 14.6 11.5-14.5 % Immature Granulocyte % (Auto) 0.0 % Immature Granulocyte # (Auto) 0.00 0.00-0.02 K/uL Prothrombin Time 12.0 9.0-12.0 SECONDS Prothromb Time International Ratio 1.1 0.9-1.1 Activated Partial Thromboplast Time 31.5 21.0-31.0 SECONDS Partial Thromboplastin Ratio 1.2 Sodium Level 145 136-145 mmol/L Potassium Level 3.9 3.5-5.1 mmol/L Chloride Level 114 98-107 mmol/L Carbon Dioxide Level 24 21-32 mmol/L Anion Gap 7.0 3-11 mmol/L Blood Urea Nitrogen 15 7-18 mg/dl Creatinine 1.30 0.60-1.20 mg/dl Est Creatinine Clear Calc Drug Dose 56.8 ml/min Estimated GFR () 48.8 Estimated GFR (Non- 42.1 BUN/Creatinine Ratio 11.8 10-20 Random Glucose 101 70-99 mg/dl Lactic Acid Level 0.6 0.4-2.0 mmol/L Calcium Level 9.0 8.5-10.1 mg/dl Magnesium Level 2.3 1.8-2.4 mg/dl Total Bilirubin 0.4 0.2-1 mg/dl Aspartate Amino Transf (AST/SGOT) 10 15-37 U/L Alanine Aminotransferase (ALT/SGPT) 14 12-78 U/L Alkaline Phosphatase 95 45-117 U/L Troponin I < 0.015 0-0.045 ng/ml Total Protein 6.9 6.4-8.2 gm/dl Albumin 4.0 3.4-5.0 gm/dl Globulin 2.9 2.5-4.0 gm/dl Albumin/Globulin Ratio 1.4 0.9-2 Lipase 248 73-393 U/L 67 y/o female, with PMHx of asthma, a.fib, bilateral lower extremity edema, seizure disorder, anxiety, and GERD, who presented to the ED because of dark stools and BRBPR x1 month GI bleed w/ melena and BRBPR x1 month: - Admit to tele for cardiac monitoring -- Transferred to med/surg on 02/24 - IV NSS @ 100 ml/hr- d/c'd due to tolerating full diet - IV Protonix BID- transition to Protonix PO daily - IV Morphine for pain control- d/c on 02/26 for preparation for discharge - UA unremarkable - Follow CBC and PRP- hgb stable - Heme stool positive completed by ED - Consult GI, appreciate recommendations -- EGD on 02/26- large hiatal hernia, gastritis- biopsied, normal duodenum -- Colonoscopy on 02/26- internal hemorrhoids, diverticulosis, inadequate bowel prep- repeat scope in 3 months outpatient a.fb: - Hold Eliquis secondary to GI bleed -- Discussion w/ pt regarding risk(increased risk of stroke secondary to a.fib/increased chance of GI bleed reoccurring))/benefit(stroke prevention) of restarting Xarelto. Patient verbalized understanding and stated she would like to resume Xarelto. I think this is reasonable given resolved melena/BRBPR and unremarkable colonoscopy/EGD; additionally, patient states melena and BRBPR has been ongoing for 1 month while on Xarelto and hgb remained stable. Script given for CBC on 03/02 to follow-up hgb count (results forwarded to PCP) - Continue Metoprolol 25 mg daily Asthma: Continue home inhalers Anxiety: Ativan IV 0.5 mg PRN Chronic lower extremity edema: Resume Lasix 20 mg PO daily Seizure disorder: Continue Lamictal 100 mg BID, Levetiracetam 500 mg BID, and Topamax 100 mg BID Hypomagnesium: - Hold Mag-Ox supplement to limit PO intake- resume at discharge - Follow mag level, replete PRN w/ IV mag GERD: Zantac d/c'd. Protonix daily h/o cellulitis on chronic suppression therapy: - Continue Bactrim - Follows w/ Dr. Gardner GI Prophylaxis: Maalox PRN, IV Zofran PRN, Colace and/or Milk of Mag PRN DVT prophylaxis: OC and SCDs, chemical therapy contraindicated secondary to GI bleed Code Status: LEVEL I, FULL Dispo: - Discharge to home with [facility] - PT/OT- OK to return home Total Time Spent: Greater than 30 minutes This includes examination of the patient, discharge planning, medication reconciliation, and communication with other providers. Discharge Instructions Please refer to the electronic Patient Visit Report (Discharge Instructions) for additional information. Follow-Up Please follow-up with your PCP within 5-7 days Please follow-up with Dr. Dumont for a repeat colonoscopy in 3 months Please follow-up/keep all of your subspecialty appointments Additional Copies To Marcelo Escoto M.D.
[2017-02-27 13:10] VITALS: BP 177/85; PULSE 69; TEMP 36.6; O2SAT 96
[2017-02-27 17:07] VITALS: BP 150/82; PULSE 73
[2017-05-29] MEDS ORDERED: LAMO200T38 PO (14:46)
[2017-05-29] MEDS ORDERED: FLUT0.15 NAE (14:46)
[2017-05-29] MEDS ORDERED: VOLTAREN GEL TOP (14:46)
[2017-05-29] MEDS ORDERED: FERR1TAB13 PO (14:46)
[2017-05-29] MEDS ORDERED: ATRIN INH (14:46)
[2017-07-02] MEDS ORDERED: MULT-1042 PO (00:01)
[2017-07-02] MEDS ORDERED: SENN-65 PO (00:02)
[2017-07-04] MEDS ORDERED: CEPH500C PO (13:08)
[2017-07-04] MEDS ORDERED: HYDR-4079 PO (13:08)
[2017-07-04] MEDS ORDERED: SULF800T23 PO (18:32)
[2017-08-16] MEDS ORDERED: VNTHFA/IN PO (17:23)
[2017-08-16] MEDS ORDERED: TPRSR/25 PO (17:23)
[2017-08-16] MEDS ORDERED: LORA-741 PO (17:23)
[2017-08-16] MEDS ORDERED: METO5TAB2 PO (17:23)
[2017-08-16] MEDS ORDERED: FLUT0.15 NAE (17:23)
[2017-08-16] MEDS ORDERED: FURO20TA PO (17:23)
[2017-08-16] MEDS ORDERED: IPRA0.03 NAE (17:23)
[2017-08-16] MEDS ORDERED: SULF800T23 PO (17:23)
[2017-08-16] MEDS ORDERED: POTA20TA13 PO (17:23)
[2017-08-16] MEDS ORDERED: LAMO200T38 PO (17:23)
[2017-08-16] MEDS ORDERED: LAMO100T16 PO (17:23)
[2017-08-16] MEDS ORDERED: DOCU-94 PO (17:23)
[2017-08-16] MEDS ORDERED: LEVE500T PO (17:23)
[2017-08-16] MEDS ORDERED: APIX1TAB3 PO (17:23)
[2017-08-16] MEDS ORDERED: TPM100 PO (17:23)
[2017-08-16] MEDS ORDERED: FERR1TAB13 PO (17:23)
[2017-08-16] MEDS ORDERED: PANT40TA PO (17:23)
== END 2017-02-27 18:00 | disposition home health service (06) | DRG 813 ==
LOC: ENRESERVDT → ENRESERVTM → C.EDB 10:50 → C.2T 14:56 → C.MS2W 02-24 15:58
PROVIDERS: ADMIT Internal Medicine; ATTEND Hospitalist
PROC: 0DB68ZX Excision of Stomach, Via Natural or Artificial Opening Endoscopic, Diagnostic (ICD-10-PCS; principal; 2017-02-26 11:13)
PROC: 0DJD8ZZ Inspection of Lower Intestinal Tract, Via Natural or Artificial Opening Endoscopic (ICD-10-PCS; 2017-02-26 11:13)
DX: D68.32 Hemorrhagic disorder due to extrinsic circulating anticoagulants (principal); K92.1 Melena; K57.30 Diverticulosis of large intestine without perforation or abscess without bleeding; J45.909 Unspecified asthma, uncomplicated; T45.515A Adverse effect of anticoagulants, initial encounter; M10.9 Gout, unspecified; I48.91 Unspecified atrial fibrillation; G40.909 Epilepsy, unspecified, not intractable, without status epilepticus; K21.9 Gastro-esophageal reflux disease without esophagitis; Z82.0 Family history of epilepsy and other diseases of the nervous system; E83.42 Hypomagnesemia; K64.8 Other hemorrhoids; K44.9 Diaphragmatic hernia without obstruction or gangrene; K29.60 Other gastritis without bleeding; R60.0 Localized edema; Y92.009 Unspecified place in unspecified non-institutional (private) residence as the place of occurrence of the external cause; Z88.2 Allergy status to sulfonamides

== ENCOUNTER → 2017-03-06 | Outpatient (CLI) | payer OTHER ==
[~2017-03-06] MED LIST changes: +ASCA500 PO; +ASCO500T16 PO; +ATRIN INH; +CEPH500C PO; +CIPR1TAB11 PO; -DOCU-149 PO; +ESTCR PV; +ESTR1 PO; -Estrace; +FERR1TAB13 PO; +FLUT0.15 NAE; +HYDR-4079 PO; +IPRA0.03 NAE; +MULT-1042 PO; +OXYC-57 PO; -RANI150T2 PO; +SENN-65 PO; +VOLTAREN GEL TOP; +[UNRECOGNIZED DRUG - CODE] PO; -[UNRECOGNIZED DRUG - CODE] PO
[2017-03-06 12:45] LABS: BASO % 0.7 %; BASO ABS # 0.04 K/uL (0-0.2); COMPLETE YES; EOS % 3.1 %; HEMATOCRIT 36.9 % (37-47); IG% 0.2 %; LYMPH % 22.2 %; LYMPH ABS # 1.34 K/uL (1.2-3.4); MEAN CORPUSCULAR HEMOGLOBIN 27.8 pg (25-34); MEAN PLATELET VOLUME 11.2 fL (7.4-10.4); MONO % 7.6 %; NEUT % 66.2 %; PLATELET COUNT 201 K/uL (130-400); RED BLOOD COUNT 4.24 M/uL (4.2-5.4); WHITE BLOOD COUNT 6.04 K/uL (4.8-10.8)
[2017-03-06 13:12] LABS: BLOOD UREA NITROGEN 10 mg/dl (7-18); BUN/CREATININE RATIO 8.4 (10-20); CARBON DIOXIDE 22 mmol/L (21-32); CHLORIDE 113 mmol/L (98-107); GLUCOSE 105 mg/dl (70-99); POTASSIUM 3.8 mmol/L (3.5-5.1); SODIUM 145 mmol/L (136-145)
== END | disposition home or self-care (01) ==
LOC: C.LAB 11:08
PROVIDERS: ATTEND Physician Assistant Medical
DX: D64.9 Anemia, unspecified (principal); E87.5 Hyperkalemia

== ENCOUNTER 2017-03-14 00:29 | Observation (INO) | payer OTHER ==
[2017-03-14] VITALS (9 sets, daily range): BP systolic 96–138; BP diastolic 63–81; PULSE 55–82; TEMP 36.3–36.6; O2SAT 95–99; Ht 170.2 cm; Wt 118.3 kg
[~2017-03-14] VITALS: Ht 170.2 cm; Wt 118.3 kg
[~2017-03-14 00:29] MED LIST changes: -ASCA500 PO; -ASCO500T16 PO; -ATRIN INH; -CEPH500C PO; -CIPR1TAB11 PO; -ESTCR PV; -FERR1TAB13 PO; -FLUT0.15 NAE; -HYDR-4079 PO; -IPRA0.03 NAE; -LAMO200T38 PO; -MULT-1042 PO; -OXYC-57 PO; -SENN-65 PO; -VOLTAREN GEL TOP; -[UNRECOGNIZED DRUG - CODE] PO
[2017-03-14] MEDS ORDERED: GI COCKTAIL PO STA (00:42)
[2017-03-14] MEDS ORDERED: LIDOCAINE HCL 2% VISC SOLN 20 ML UDC ONE (01:16)
[2017-03-14] MEDS ORDERED: ALUMINUM/MAGNESIUM SUSP 30 ML UDC ONE (01:16)
[2017-03-14 01:31] LABS: BASO % 0.6 %; BASO ABS # 0.04 K/uL (0-0.2); COMPLETE YES; EOS % 2.4 %; IG% 0.1 %; LYMPH % 24.1 %; MEAN CELL VOLUME 87.7 fL (80-100); MEAN CORPUSCULAR HEMOGLOBIN 28.7 pg (25-34); MEAN CORPUSCULAR HGB CONC 32.7 g/dl (32-36); MEAN PLATELET VOLUME 11.1 fL (7.4-10.4); NEUT % 65.8 %; PLATELET COUNT 195 K/uL (130-400); RED BLOOD COUNT 4.22 M/uL (4.2-5.4); WHITE BLOOD COUNT 7.05 K/uL (4.8-10.8)
[2017-03-14] MEDS ORDERED: OXYCODONE HCL IR 5 MG TAB (IMMEDIATE RELEASE) PO STA (01:39)
[2017-03-14 01:41] LABS: INR 1.1 (0.9-1.1); PARTIAL THROMBOPLASTIN RATIO 1.2
[2017-03-14] MEDS ORDERED: PROMETHAZINE HCL 25 MG TAB PO ONE (01:45)
[2017-03-14 01:57] LABS: ALT/SGPT 17 U/L (12-78); AST/SGOT 11 U/L (15-37); BLOOD UREA NITROGEN 13 mg/dl (7-18); BUN/CREATININE RATIO 9.4 (10-20); CALCIUM 9.2 mg/dl (8.5-10.1); CARBON DIOXIDE 28 mmol/L (21-32); CHLORIDE 112 mmol/L (98-107); GLUCOSE 104 mg/dl (70-99); MAGNESIUM 2.4 mg/dl (1.8-2.4); POTASSIUM 3.6 mmol/L (3.5-5.1); SODIUM 144 mmol/L (136-145)
[2017-03-14 02:05] LABS: ALKALINE PHOSPHATASE 89 U/L (45-117); CKMB/CK RATIO 1.4 (0-3.0); THYROID STIMULATING HORMONE 0.639 uIu/ml (0.300-4.500)
--- NOTE | 2017-03-14 02:31 | EMERGENCY ROOM VISIT NOTE ---
History Report prepared by Chiara: Ibeth Salgado Under the Supervision of: Dr. Billy Laurent M.D. First contact with patient: 00:30 Chief Complaint: SHORTNESS OF BREATH Stated Complaint: THROAT PAIN/SHORT OF BREATH History of Present Illness The patient is a 67 year old female who presents to the Emergency Room with complaints of an episode of feeling short of breath, squeezing chest pain, and burning in her throat and neck just prior to arrival. She states that she fell asleep and when she woke up, she felt like she couldn't breath. She states that she only ate a mint prior to falling asleep, but didn't feel like she was choking on it. She states that she has some burning in her chest and abdominal pain. She notes that she has also had a rectal bleed for a month, but has already been assessed for it and has an appointment scheduled in two days. She reports that she has melena, as well. The patient notes that she is on no blood thinners. The patient was admitted to the hospital on February 23, 2017 for rectal bleeding. She was found to have gastritis. Pt denies LOC, headache, fevers, chills, diaphoresis, visual changes, neck pain, nausea, vomiting, back pain, hematochezia, urinary symptoms, numbness, weakness, lymphadenopathy, rash, or other complaints. Source of History: patient Onset: prior to arrival Position: other (global) Quality: other (global) Timing: other (episode) Associated Symptoms: + abdominal pain, + chest pain, + melena Review of Systems See HPI for pertinent positives and negatives. A total of ten systems were reviewed and were otherwise negative. 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 (16) Fall (17) Fracture of rib with routine healing (18) Gastroesophageal reflux disease (19) Gout (20) Hip pain (21) History of recent fall (22) Hyperlipidemia (23) Migraine (24) Neck pain (25) Rectal bleeding (26) renal insufficiency (27) Rib fractures (28) Seizure (29) Spinal stenosis (30) Sprain of knee (31) Status post fall (32) Unexplained night sweats Surgical Problems: (1) back surgery (2) Cholecystectomy (3) Hysterectomy (4) neck surgery Family History Cancer FHx: neurologic disorder Heart disease Hypertension Kidney disease Other kidney diseases Seizures Social History Smoking Status: Never Smoker Alcohol Use: none Drug Use: none Marital Status: single Housing Status: lives alone Occupation Status: retired Current/Historical Medications Scheduled Apixaban (Eliquis), 5 MG PO BID Docusate Sodium (Colace), 1 CAP PO BID Estradiol (Estrace), 1 MG PO QAM Furosemide (Lasix), 20 MG PO QAM Lamotrigine (Lamictal), 100 MG PO BID Levetiractam (Levetiracetam), 500 MG PO BID Lorazepam (Ativan), 0.5 MG PO BID Magnesium Oxide (Mag-Ox), 400 MG PO BID Metoclopramide Hcl (Metoclopramide Hcl), 5 MG PO BID Metoprolol Succinate (Metoprolol Succinate ER), 25 MG PO DAILY Multivitamin (Multivitamin), 1 TAB PO DAILY Pantoprazole Sodium (Protonix), 40 MG PO BID Potassium Chloride Microencaps (Potassium Chloride Er), 20 MEQ PO DAILY Sulfa/Trimethoprim (Bactrim Ds 800MG/160MG), 1 TAB PO DAILY Topiramate (Topiramate), 100 MG PO BID Scheduled PRN Albuterol Hfa (Ventolin Hfa), 2 PUFFS PO UD PRN for SOB/Wheezing Albuterol Sulf (Proventil 0.083% 2.5MG/3ML), 1 DOSE NEB UD PRN for SOB/Wheezing Albuterol Sulfate (Proair Respiclick), 2 PUFF INH QID PRN for Shortness of Breath Oxycodone Ir (Roxicodone Ir), 1-2 TAB PO Q4H PRN for Severe Pain Allergies Coded Allergies: Adhesives (Verified Adverse Reaction, Unknown, ITCHY, 03/14/17) Physical Exam Vital Signs Date Time Temp Pulse Resp B/P Pulse Ox O2 Delivery O2 Flow Rate FiO2 03/14/17 01:47 71 20 132/72 96 Room Air 03/14/17 01:16 94 Room Air 03/14/17 00:41 72 03/14/17 00:36 36.7 71 20 152/91 99 Room Air 03/14/17 00:36 94 Physical Exam GENERAL: Awake, alert, well-appearing, in no distress HENT: Normocephalic, atraumatic. Oropharynx unremarkable. EYES: Normal conjunctiva. Sclera non-icteric. NECK: Supple. No nuchal rigidity. FROM. No JVD. RESPIRATORY: Clear to auscultation. CARDIAC: Regular rate, normal rhythm. Extremities warm and well perfused. Pulses equal. ABDOMEN: Soft, non-distended. No tenderness to palpation. No rebound or guarding. No masses. RECTAL: Deferred. MUSCULOSKELETAL: Chest examination reveals no tenderness. The back is symmetrical on inspection without obvious abnormality. There is no CVA tenderness to palpation. No joint edema. LOWER EXTREMITIES: Calves are equal size bilaterally and non-tender. No edema. No discoloration. NEURO: Normal sensorium. No sensory or motor deficits noted. SKIN: No rash or jaundice noted. Medical Decision & Procedures Laboratory Results 03/14/17 01:15 Red Blood Count 4.22, Mean Corpuscular Volume 87.7, Mean Corpuscular Hemoglobin 28.7, Mean Corpuscular Hemoglobin Concent 32.7, Mean Platelet Volume 11.1, Neutrophils (%) (Auto) 65.8, Lymphocytes (%) (Auto) 24.1, Monocytes (%) (Auto) 7.0, Eosinophils (%) (Auto) 2.4, Basophils (%) (Auto) 0.6, Neutrophils # (Auto) 4.64, Lymphocytes # (Auto) 1.70, Monocytes # (Auto) 0.49, Eosinophils # (Auto) 0.17, Basophils # (Auto) 0.04 03/14/17 01:15 Test 03/14/17 01:15 White Blood Count 7.05 K/uL (4.8-10.8) Red Blood Count 4.22 M/uL (4.2-5.4) Hemoglobin 12.1 g/dL (12.0-16.0) Hematocrit 37.0 % (37-47) Mean Corpuscular Volume 87.7 fL (80-100) Mean Corpuscular Hemoglobin 28.7 pg (25-34) Mean Corpuscular Hemoglobin Concent 32.7 g/dl (32-36) Platelet Count 195 K/uL (130-400) Mean Platelet Volume 11.1 fL (7.4-10.4) Neutrophils (%) (Auto) 65.8 % Lymphocytes (%) (Auto) 24.1 % Monocytes (%) (Auto) 7.0 % Eosinophils (%) (Auto) 2.4 % Basophils (%) (Auto) 0.6 % Neutrophils # (Auto) 4.64 K/uL (1.4-6.5) Lymphocytes # (Auto) 1.70 K/uL (1.2-3.4) Monocytes # (Auto) 0.49 K/uL (0.11-0.59) Eosinophils # (Auto) 0.17 K/uL (0-0.5) Basophils # (Auto) 0.04 K/uL (0-0.2) RDW Standard Deviation 48.6 fL (36.4-46.3) RDW Coefficient of Variation 15.2 % (11.5-14.5) Immature Granulocyte % (Auto) 0.1 % Immature Granulocyte # (Auto) 0.01 K/uL (0.00-0.02) Prothrombin Time 12.0 SECONDS (9.0-12.0) Prothromb Time International Ratio 1.1 (0.9-1.1) Activated Partial Thromboplast Time 29.9 SECONDS (21.0-31.0) Partial Thromboplastin Ratio 1.2 Anion Gap 4.0 mmol/L (3-11) Estimated GFR () 44.6 Estimated GFR (Non- 38.5 BUN/Creatinine Ratio 9.4 (10-20) Calcium Level 9.2 mg/dl (8.5-10.1) Magnesium Level 2.4 mg/dl (1.8-2.4) Total Bilirubin 0.3 mg/dl (0.2-1) Direct Bilirubin 0.1 mg/dl (0-0.2) Aspartate Amino Transf (AST/SGOT) 11 U/L (15-37) Alanine Aminotransferase (ALT/SGPT) 17 U/L (12-78) Alkaline Phosphatase 89 U/L (45-117) Total Creatine Kinase 87 U/L (26-192) Creatine Kinase MB 1.2 ng/ml (0.5-3.6) Creatine Kinase MB Ratio 1.4 (0-3.0) Troponin I < 0.015 ng/ml (0-0.045) Total Protein 7.1 gm/dl (6.4-8.2) Albumin 4.0 gm/dl (3.4-5.0) Lipase 254 U/L (73-393) Thyroid Stimulating Hormone (TSH) 0.639 uIu/ml (0.300-4.500) Laboratory results reviewed by me Medications Administered Medications (Trade) Dose Ordered Sig/Galileo Route Start Time Stop Time Status Last Admin Dose Admin Al Hydroxide/Mg Hydroxide (Maalox Susp) 30 ml STK-MED ONCE .ROUTE 03/14/17 01:16 03/14/17 01:17 DC 03/14/17 01:15 30 ML Lidocaine HCl (Viscous Lidocaine 2% Soln) 20 ml STK-MED ONCE .ROUTE 03/14/17 01:16 03/14/17 01:17 DC 03/14/17 01:15 20 ML Oxycodone HCl (Roxicodone Immediate Rel Tab) 5 mg NOW STAT PO 03/14/17 01:39 03/14/17 01:41 DC 03/14/17 01:46 5 MG Promethazine HCl (Phenergan Tab) 25 mg NOW ONCE PO 03/14/17 01:45 03/14/17 01:46 DC 03/14/17 01:46 25 MG ECG Indication: SOB/dyspnea Rate (beats per minute): 72 Rhythm: atrial fibrillation Findings: no acute ischemic change, no ectopy ED Course 0036: The patient was evaluated in room A9. A complete history and physical exam was performed. 0042: Ordered Gi Cocktail 24 ml PO. 0141: Patient was reassessed. She noted continued discomfort and requested analgesia. She was given oxycodone 1 by mouth. She was also given Phenergan orally. 0220: patient was evaluated. She is resting comfortably. Discussed chest pain rule out with her. She is in agreement now. Consultation made with Dr. Burton for further management. Medical Decision Triage Nursing notes reviewed. The patient's presentation and history were concerning for sore throat, chest discomfort, and malaise. Etiologies such as metabolic, infection, hypo/hyperglycemia, electrolyte abnormalities, cardiac sources, intracerebral event, toxicologic, neurologic, as well as others were entertained. The patient was evaluated. She was adamant at the start that she was not staying in the hospital and she wanted to be checked out in the emergency department. The patient had an ECG performed. Her chest x-ray was unremarkable. She was given a GI cocktail. She noted no relief with this. She did request analgesia. She was given oxycodone and Phenergan. The patient had an unremarkable CBC and chemistry panel. The patient's coags, TSH, and cardiac markers are negative. The patient was not given aspirin due to her use of anticoagulation and recent gastritis. She had chest discomfort. Further evaluation and management was felt to be appropriate with internal medicine. Consultation was made. The patient was evaluated in the Emergency Room for further treatment. The chart was completed utilizing [employer] Speech voice recognition software. Grammatical errors, random word insertions, pronoun errors, and incomplete sentences are an occasional consequence of this system due to software limitations, ambient noise, and hardware issues. Any formal questions or concerns about the content, text, or information contained within the body of this dictation should be directly addressed to the physician for clarification. Consults Time Called: [phone] Consulting Physician: Dr Burton Returned Call: [phone] Discussed the patient's presentation and complaints of chest discomfort with neck discomfort. Patient will be evaluated for further management. Impression Primary Impression: Substernal chest pain Additional Impressions: Sore throat Malaise Scribe Attestation The scribe's documentation has been prepared under my direction and personally reviewed by me in its entirety. I confirm that the note above accurately reflects all work, treatment, procedures, and medical decision making performed by me. Departure Information Dispostion Being Evaluated By Hospitalist Referrals Marcelo Escoto M.D. (PCP) Patient Instructions My [facility] Problem Qualifiers
[2017-03-14] MEDS ORDERED: MAGNESIUM HYDROXIDE SUSP 30 ML UDC PO PRN (03:00)
[2017-03-14] MEDS ORDERED: POLYETHYLENE (MIRALAX) 17 GM PACK PO PRN (03:00)
[2017-03-14] MEDS ORDERED: ONDANSETRON INJ 2 MG/ML 2 ML VIAL IV PRN (03:00)
[2017-03-14] MEDS ORDERED: NITROGLYCERIN 0.4 MG SL PER TAB CHARGE SL PRN (03:00)
[2017-03-14] MEDS ORDERED: ALUMINUM/MAGNESIUM/SIMETH (MAALOX MAX) 30 ML UDC PO PRN (03:00)
[2017-03-14] MEDS ORDERED: ACETAMINOPHEN 325 MG TAB PO PRN (03:00)
[2017-03-14] MEDS ORDERED: NON-FORMULARY MEDICATION (Albuterol Sulfate (Proair Respiclick) 2 PUFF) INH PRN (03:15)
[2017-03-14] MEDS ORDERED: ALBUTEROL HFA 8 GM INHALER INH PRN (03:15)
[2017-03-14] MEDS ORDERED: ALBUTEROL 0.083% NEBU SOLN 3 ML VIAL INH PRN (03:30)
[2017-03-14] MEDS ORDERED: MAGIC MOUTHWASH PO PRN (03:30)
--- NOTE | 2017-03-14 03:40 | History and Physical ---
History & Physical Date & Time of Service: Mar 14, 2017 at 03:12 Chief Complaint: Throat Pain/Short Of Breath Primary Care Physician: Marcelo Escoto M.D. History of Present Illness This 67-year-old female, who presents with sudden onset shortness of breath. Her history is unfortunately somewhat inconsistent with what she told both the ED M.D., her nurse, and myself. To me she reports waking up at midnight, and suddenly feeling like she couldn't breathe. She also states that she is having some throat discomfort, and felt like there was something in her throat that she could not get anything out. She also states that she was having a productive cough, but was not able to specify the color the phlegm or quantity. She also states that she felt wheezy. She did not state if she took her albuterol inhaler. Further she reports that she felt a "heavy" chest pain, rated 8 out of 10. The pain does not radiate, and is associated with deep breathing. She states she felt slightly lightheaded. She denies palpitations, she denies lower extremity edema. In addition she also notes that she has ongoing epigastric discomfort. She states that she has alternating lack and red stool, and this is long-standing. She is due for colonoscopy in the upcoming weeks. She states having a little bit of nausea, but no vomiting. She denies any history of constipation. She does not have any dysuria or urinary frequency. She states that she is also having generalized body aches, without localization to one spot apart from the chest pain described above. Apart from a controlled atrophic fibrillation, she does not have any previous history of coronary artery disease. She denies having history of diabetes, or hypercholesterolemia. She is uncertain if she has a diagnosis of hypertension. She is a lifelong nonsmoker. She states that her parents had coronary disease in their 40s. She had an echocardiogram in 2014, which showed an ejection fraction of 60%, no regional wall motion abnormalities at that time. Past Medical/Surgical History Medical Problems: (1) Abdominal pain Status: Resolved (2) Abnormal EKG Status: Resolved (3) Abnormal EKG Status: Resolved (4) Arthritis Status: Chronic (5) Asthma, Unspecified Status: Chronic (6) Back pain Status: Resolved (7) Benign hypertension Status: Chronic (8) Chest pain Status: Resolved (9) Contusion of right knee Status: Resolved (10) Cough Status: Resolved (11) Cough Status: Resolved (12) Dehydration Status: Resolved (13) Diverticulitis Status: Resolved (14) Dizziness Status: Resolved (15) DJD (degenerative joint disease) of knee Status: Chronic (16) Fall Status: Resolved (17) Fracture of rib with routine healing Status: Resolved (18) Gastroesophageal reflux disease Status: Chronic (19) Gout Status: Chronic (20) Hip pain Status: Resolved (21) History of recent fall Status: Resolved (22) Hyperlipidemia Status: Chronic (23) Migraine Status: Chronic (24) Neck pain Status: Resolved (25) Rectal bleeding Status: Resolved (26) renal insufficiency Status: Chronic (27) Rib fractures Status: Resolved (28) Seizure Status: Chronic (29) Spinal stenosis Status: Chronic (30) Sprain of knee Status: Resolved (31) Status post fall Status: Resolved (32) Unexplained night sweats Status: Resolved Surgical Problems: (1) back surgery Status: Resolved (2) Cholecystectomy Status: Resolved (3) Hysterectomy Status: Resolved (4) neck surgery Status: Resolved Family History Cancer FHx: neurologic disorder Heart disease Hypertension Kidney disease Other kidney diseases Seizures Social History Smoking Status: Never Smoker Smokeless Tobacco Use: No Alcohol Use: none Drug Use: none Marital Status: single Occupational Status: retired Immunizations History of Influenza Vaccine: Yes Influenza Vaccine Date: Sep 10, 2011 History of Tetanus Vaccine?: Yes Tetanus Immunization Date: Mar 07, 1997 History of Pneumococcal: Yes Pneumococcal Date: Sep 09, 2011 History of Hepatitis B Vaccine: No Hepatitis Immunization Date: Jul 01, 2006 Multi-Drug Resistant Organisms History of MDRO: No Allergies Coded Allergies: Adhesives (Verified Adverse Reaction, Unknown, ITCHY, 03/14/17) Home Medications Scheduled Apixaban (Eliquis), 5 MG PO BID Docusate Sodium (Colace), 1 CAP PO BID Estradiol (Estrace), 1 MG PO QAM Furosemide (Lasix), 20 MG PO QAM Lamotrigine (Lamictal), 100 MG PO BID Levetiractam (Levetiracetam), 500 MG PO BID Lorazepam (Ativan), 0.5 MG PO BID Magnesium Oxide (Mag-Ox), 400 MG PO BID Metoclopramide Hcl (Metoclopramide Hcl), 5 MG PO BID Metoprolol Succinate (Metoprolol Succinate ER), 25 MG PO DAILY Multivitamin (Multivitamin), 1 TAB PO DAILY Pantoprazole Sodium (Protonix), 40 MG PO BID Potassium Chloride Microencaps (Potassium Chloride Er), 20 MEQ PO DAILY Sulfa/Trimethoprim (Bactrim Ds 800MG/160MG), 1 TAB PO DAILY Topiramate (Topiramate), 100 MG PO BID Scheduled PRN Albuterol Hfa (Ventolin Hfa), 2 PUFFS PO UD PRN for SOB/Wheezing Albuterol Sulf (Proventil 0.083% 2.5MG/3ML), 1 DOSE NEB UD PRN for SOB/Wheezing Albuterol Sulfate (Proair Respiclick), 2 PUFF INH QID PRN for Shortness of Breath Oxycodone Ir (Roxicodone Ir), 1-2 TAB PO Q4H PRN for Severe Pain Review of Systems A 10 point review of systems was negative unless stated above in the history of present illness. Physical Exam Vital Signs Date Time Temp Pulse Resp B/P Pulse Ox O2 Delivery O2 Flow Rate FiO2 03/14/17 01:47 71 20 132/72 96 Room Air 03/14/17 01:16 94 Room Air 03/14/17 00:41 72 03/14/17 00:36 36.7 71 20 152/91 99 Room Air 03/14/17 00:36 94 General Appearance: WD/WN, no apparent distress Head: normocephalic, atraumatic Eyes: normal inspection, EOMI ENT: hearing grossly normal, pharynx normal Neck: supple, no adenopathy, no JVD Respiratory/Chest: lungs clear, no respiratory distress, + pertinent finding ( sternal tenderness to palpation) Cardiovascular: no gallop, + systolic murmur (holosystolic, 2/6, loudest in the lower left sternal border), + irregularly irregular Abdomen/GI: normal bowel sounds, soft, no pulsatile mass, + tenderness ( epigastric), + pertinent finding (multiple well-healed surgical scars) Back: no CVA tenderness, no muscle spasm Extremities/Musculoskelatal: no calf tenderness, no pedal edema Neurologic/Psych: alert Skin: normal color, warm/dry, no rash Lymphatic: no adenopathy Diagnostics Laboratory Results Results Past 24 Hours Test 03/14/17 01:15 Range/Units White Blood Count 7.05 4.8-10.8 K/uL Red Blood Count 4.22 4.2-5.4 M/uL Hemoglobin 12.1 12.0-16.0 g/dL Hematocrit 37.0 37-47 % Mean Corpuscular Volume 87.7 80-100 fL Mean Corpuscular Hemoglobin 28.7 25-34 pg Mean Corpuscular Hemoglobin Concent 32.7 32-36 g/dl Platelet Count 195 130-400 K/uL Mean Platelet Volume 11.1 7.4-10.4 fL Neutrophils (%) (Auto) 65.8 % Lymphocytes (%) (Auto) 24.1 % Monocytes (%) (Auto) 7.0 % Eosinophils (%) (Auto) 2.4 % Basophils (%) (Auto) 0.6 % Neutrophils # (Auto) 4.64 1.4-6.5 K/uL Lymphocytes # (Auto) 1.70 1.2-3.4 K/uL Monocytes # (Auto) 0.49 0.11-0.59 K/uL Eosinophils # (Auto) 0.17 0-0.5 K/uL Basophils # (Auto) 0.04 0-0.2 K/uL RDW Standard Deviation 48.6 36.4-46.3 fL RDW Coefficient of Variation 15.2 11.5-14.5 % Immature Granulocyte % (Auto) 0.1 % Immature Granulocyte # (Auto) 0.01 0.00-0.02 K/uL Prothrombin Time 12.0 9.0-12.0 SECONDS Prothromb Time International Ratio 1.1 0.9-1.1 Activated Partial Thromboplast Time 29.9 21.0-31.0 SECONDS Partial Thromboplastin Ratio 1.2 Sodium Level 144 136-145 mmol/L Potassium Level 3.6 3.5-5.1 mmol/L Chloride Level 112 98-107 mmol/L Carbon Dioxide Level 28 21-32 mmol/L Anion Gap 4.0 3-11 mmol/L Blood Urea Nitrogen 13 7-18 mg/dl Creatinine 1.40 0.60-1.20 mg/dl Estimated GFR () 44.6 Estimated GFR (Non- 38.5 BUN/Creatinine Ratio 9.4 10-20 Random Glucose 104 70-99 mg/dl Calcium Level 9.2 8.5-10.1 mg/dl Magnesium Level 2.4 1.8-2.4 mg/dl Total Bilirubin 0.3 0.2-1 mg/dl Direct Bilirubin 0.1 0-0.2 mg/dl Aspartate Amino Transf (AST/SGOT) 11 15-37 U/L Alanine Aminotransferase (ALT/SGPT) 17 12-78 U/L Alkaline Phosphatase 89 45-117 U/L Total Creatine Kinase 87 26-192 U/L Creatine Kinase MB 1.2 0.5-3.6 ng/ml Creatine Kinase MB Ratio 1.4 0-3.0 Troponin I < 0.015 0-0.045 ng/ml Total Protein 7.1 6.4-8.2 gm/dl Albumin 4.0 3.4-5.0 gm/dl Lipase 254 73-393 U/L Thyroid Stimulating Hormone (TSH) 0.639 0.300-4.500 uIu/ml Diagnostic Radiology Formal read is pending EKG Atrial fibrillation, rate [address]-T wave abnormalities Impression Assessment and Plan Documented By: Duglas Matthewgriseldaamanda 59-year-old female, who presents with shortness of breath and chest pain. Patient's risk factors include age and family history. History of pressure- like sensation, would be consistent with anginal pain. However the picture is complicated by the fact that I was able to palpate tenderness over the sternum where she reports the pain, as well as a very history provided. Furthermore she has a history of GERD, at one point told the nurse that her pain at a somewhat burning quality to it. She does have an EKG with some degree of nonspecific ST and T-wave changes, without any acute ST elevation. An initial set of troponins was normal. Given somewhat clouded picture for the cause of her chest pain, I would observe her in telemetry, serial cardiac enzyme monitoring. We give a baseline echo from 2014 showing no regional wall motion abnormalities. Therefore repeating echocardiogram as an inpatient to look for new regional wall motion abnormalities or changes in ejection fraction would be helpful. Our plan for her is as follows Chest pain - ?MSK etiology versus GERD versus cardiac chest pain? - Monitor telemetry - At this time, I will hold off on giving the patient aspirin, given the low- grade aching that she comes in with, as I feel that this is more likely muscular skeletal than anginal - Initial troponin level undetectable; serial monitoring every 6 hours until peak - Patient ambulance with a cane, would not tolerate exercise stress testing Complete echo is been ordered Cardiology is not been consulted at this time, as we are trying to gather additional information with troponin trending; will defer to day team as to whether consultation is required - Nitroglycerin for chest pain - EKG in the morning, and anytime with chest pain Asthma - Continue Ventolin - Albuterol nebulizers as needed for shortness of breath or wheezing Atrial fibrillation - Continue metoprolol - Continue Apixaban Acute kidney injury - Creatinine 1.4; baseline estimated at 1.1-1.2 -IV access has been difficult in the patient, so for now I will encourage aggressive oral fluid rehydration - Monitor daily BMP - We'll hold oral Lasix, , the patient does not appear to be fluid overloaded at this time does not have any prominent lower extremity edema - I have decided to hold off on administering aspirin, in light of mild BRIDGETTE and the thought that pain likely musculoskeletal Seizure disorder - Continue Lamictal - Continue levetiracetam - Continue topiramate GERD - Continue pantoprazole GI bleeding - Hemoglobin normal at 12 - Colonoscopy report reviewed from early February; reports evidence of diverticulosis as well as internal hemorrhoids - Patient was due to have follow-up evaluation in 3 months. - At this time I will continue to monitor trend and CBC, but no action otherwise Mouth pain - No obvious abnormalities on exam - Magic swizzle when necessary DVT prophylaxis - SCDs - Heparin 5000 every 8 CODE STATUS - Level I full code Disposition - Telemetry Resident Physician Supervision Note: Pt seen/examined independently. I discussed the case with the resident and agree with the findings and plan as documented in the note. Any exceptions or clarifications are listed here: 67 y/o F AF, chronic anticoagulation - recent Dx of gastritis and off ASA Presenting with epigastric/CP and heaviness - initial workup is negative Pt is a poor historian - apprehensive regarding remaining in hospital OE AAO x 3 S1,2 irreg CTAB NT, ND P: Monitor on tele - 3 set cardiac enzymes - consider D/C if pain does not recur Will add ASA and consult cardio if there is an upward trend in trop Level of Care Telemetry Resuscitation Status FULL RESUSCITATION VTE Prophylaxis VTE Risk Assessment Done? Y/N: Yes Risk Level: Moderate
[2017-03-14 03:51] LABS: URINE APPEARANCE CLEAR (CLEAR); URINE BILIRUBIN NEG (NEG); URINE COLOR YELLOW; URINE NITRITE NEG (NEG); URINE PH 7.5 (4.5-7.5); URINE SPECIFIC GRAVITY 1.008 (1.000-1.030); UROBILINOGEN NEG (NEG)
[2017-03-14 03:57] LABS: MANUAL MICROSCOPIC REQUIRED? NO; REVIEW REQ? NO
[2017-03-14] MEDS ORDERED: DEXAMETHASONE CONC SOLN 3.75 MG, NYSTATIN SUSP 30 ML, DiphenhydrAMINE HCL SYRUP 300 MG,... PO PRN ×5 (05:00)
[2017-03-14] MEDS ORDERED: IV FLUIDS COMPLETED PRN (05:15)
[2017-03-14] MEDS ORDERED: HEPARIN SOD 5000 UNIT/0.5 ML CARP SQ SCH (06:00)
--- NOTE | 2017-03-14 07:20 | DIAGNOSTIC IMAGING REPORT ---
CHEST ONE VIEW PORTABLE CLINICAL HISTORY: Weakness, shortness of breath. COMPARISON STUDY: 02/23/2017 FINDINGS: The heart is mildly enlarged. There is no failure. There is no focal pulmonary consolidation. There are no pleural effusions. There are surgical clips projected over the esophagogastric junction left upper quadrant. There are postsurgical changes within the cervical spine.[ IMPRESSION: Stable mild cardiomegaly. No acute findings. Electronically signed by: Pedro Pablo Sharpe M.D. 03/14/2017 7:17 AM Dictated Date/Time: 03/14/2017 7:17 AM
[2017-03-14] MEDS: MULTIVITAMIN TAB PO SCH (08:59)
[2017-03-14] MEDS: MAGNESIUM OXIDE 400 MG TAB PO SCH ×2 (08:59→20:47)
[2017-03-14] MEDS: DOCUSATE SODIUM 100 MG CAP PO SCH ×2 (08:59→20:49)
[2017-03-14] MEDS: TOPIRAMATE 100 MG TAB PO SCH ×2 (08:59→20:49)
[2017-03-14] MEDS: LEVETIRACETAM 500 MG TAB PO SCH ×2 (08:59→20:46)
[2017-03-14] MEDS: METOCLOPRAMIDE HCL 5 MG TAB PO SCH ×2 (08:59→20:46)
[2017-03-14] MEDS: PANTOprazole SOD 40 MG TAB PO SCH ×2 (09:00→20:47)
[2017-03-14] MEDS: POTASSIUM CHLORIDE 20 MEQ TABCR PO SCH (09:00)
[2017-03-14] MEDS ORDERED: METOPROLOL SUCC 25MG EXT REL TAB PO SCH (09:00)
[2017-03-14] MEDS: FUROSEMIDE 20 MG TAB PO SCH (09:00)
[2017-03-14] MEDS: LORAZEPAM 0.5 MG TAB PO SCH ×2 (09:00→20:45)
[2017-03-14] MEDS: ESTRADIOL 1 MG TAB PO SCH (09:00)
[2017-03-14] MEDS: APIXABAN 2.5 MG TAB PO SCH ×2 (09:08→20:48)
[2017-03-14 10:22] LABS: HEMATOCRIT 39.1 % (37-47); MEAN CELL VOLUME 86.7 fL (80-100); MEAN CORPUSCULAR HEMOGLOBIN 28.4 pg (25-34); MEAN CORPUSCULAR HGB CONC 32.7 g/dl (32-36); MEAN PLATELET VOLUME 12.1 fL (7.4-10.4); PLATELET COUNT 182 K/uL (130-400); RED BLOOD COUNT 4.51 M/uL (4.2-5.4); WHITE BLOOD COUNT 7.99 K/uL (4.8-10.8)
--- NOTE | 2017-03-14 11:37 | Family Medicine Progress Note ---
Progress Note Date of Service Mar 14, 2017. Subjective Pt evaluation today including: conversation w/ patient, physical exam, chart review, lab review, review of studies, conversation w/ clinical services consultant, review of inpatient medication list PO Intake: NPO except meds Voiding: no voiding problems Patient reports resolution of Chest pain. She still reports occasional SOB and productive cough and soar throat epigastric discomfort. She denies fevers, chills, fatigue, N/V. Medications Current Inpatient Medications Medications (Trade) Dose Ordered Sig/[place] Route Start Time Stop Time Status Last Admin Dose Admin Acetaminophen (Tylenol Tab) 650 mg Q4H PRN PO 03/14/17 03:00 04/13/17 02:59 Al Hydrox/Mg Hydrox/Simethicone (Maalox Max Susp) 15 ml Q4H PRN PO 03/14/17 03:00 04/13/17 02:59 Magnesium Hydroxide (Milk Of Magnesia Susp) 30 ml Q12H PRN PO 03/14/17 03:00 04/13/17 02:59 Ondansetron HCl (Zofran Inj) 4 mg Q6H PRN IV 03/14/17 03:00 04/13/17 02:59 Nitroglycerin (Nitrostat Tab) 0.4 mg UD PRN SL 03/14/17 03:00 04/13/17 02:59 Polyethylene (Miralax Powder Packet) 17 gm DAILY PRN PO 03/14/17 03:00 04/13/17 02:59 Albuterol (Ventolin Hfa Inhaler) 2 puffs QID PRN INH 03/14/17 03:15 04/13/17 03:14 Docusate Sodium (coLACE CAP) 100 mg BID PO 03/14/17 09:00 04/13/17 08:59 03/14/17 08:59 100 MG Estradiol (Estrace Tab) 1 mg QAM PO 03/14/17 09:00 04/13/17 08:59 03/14/17 09:00 1 MG Furosemide (Lasix Tab) 20 mg QAM PO 03/14/17 09:00 04/13/17 08:59 03/14/17 09:00 20 MG Lamotrigine (Lamictal Tab) 100 mg BID PO 03/14/17 09:00 04/13/17 08:59 03/14/17 08:59 100 MG Levetiracetam (Keppra Tab) 500 mg BID PO 03/14/17 09:00 04/13/17 08:59 03/14/17 08:59 500 MG Lorazepam (Ativan Tab) 0.5 mg BID PO 03/14/17 09:00 04/13/17 08:59 03/14/17 09:00 0.5 MG Magnesium Oxide (Mag-Ox Tab) 400 mg BID PO 03/14/17 09:00 04/13/17 08:59 03/14/17 08:59 400 MG Metoclopramide HCl (Reglan Tab) 5 mg BID PO 03/14/17 09:00 04/13/17 08:59 03/14/17 08:59 5 MG Metoprolol Succinate (Toprol Xl Tab) 25 mg DAILY PO 03/14/17 09:00 04/13/17 08:59 03/14/17 08:58 25 MG Multivitamins (Multivitamin Tab) 1 tab DAILY PO 03/14/17 09:00 04/13/17 08:59 03/14/17 08:59 1 TAB Oxycodone HCl (Roxicodone Immediate Rel Tab) 5 mg Q4H PRN PO 03/14/17 03:15 03/28/17 03:14 Pantoprazole Sodium (Protonix Tab) 40 mg BID PO 03/14/17 09:00 04/13/17 08:59 03/14/17 09:00 40 MG Potassium Chloride (Klor-Con Tab) 20 meq DAILY PO 03/14/17 09:00 04/13/17 08:59 03/14/17 09:00 20 MEQ Topiramate (Topamax Tab) 100 mg BID PO 03/14/17 09:00 04/13/17 08:59 03/14/17 08:59 100 MG Apixaban (Eliquis Tab) 5 mg BID PO 03/14/17 09:00 04/13/17 08:59 03/14/17 09:08 5 MG Albuterol Sulfate 2.5 mg Q6R PRN INH 03/14/17 03:30 04/13/17 03:29 Dexamethasone/ Nystatin/ Diphenhydramine HCl/Sucrose/ Microcrystalline Cellulose/Barcode (Decadron Conc Soln/Mycostatin Susp/Benadryl Syrup/Ora-Sweet Syrup/Ora-Plus Susp. Vehicle) QID PRN PO 03/14/17 05:00 04/13/17 04:59 Miscellaneous (Iv Fluids Completed) 1 ea PRN PRN N/A 03/14/17 05:15 03/14/18 05:14 Objective Vital Signs Date Time Temp Pulse Resp B/P Pulse Ox O2 Delivery O2 Flow Rate FiO2 03/14/17 11:36 36.6 55 16 129/81 97 Room Air 03/14/17 08:00 97 Room Air 03/14/17 07:20 36.4 78 18 121/75 97 Room Air 03/14/17 04:29 36.5 71 16 132/78 96 Room Air 03/14/17 03:40 70 20 130/71 96 03/14/17 01:47 71 20 132/72 96 Room Air 03/14/17 01:16 94 Room Air 03/14/17 00:41 72 03/14/17 00:36 36.7 71 20 152/91 99 Room Air 03/14/17 00:36 94 Physical Exam General Appearance: WD/WN, no apparent distress, + obese Eyes: PERRL, EOMI Neck: supple, no carotid bruits, trachea midline Respiratory/Chest: lungs clear, normal breath sounds, no respiratory distress Cardiovascular: regular rate, rhythm, + systolic murmur Abdomen: normal bowel sounds, soft, + tenderness (epigastric) Extremities: non-tender, no calf tenderness, + pedal edema Skin: normal color, warm/dry Laboratory Results Results Past 24 Hours Test 03/14/17 01:15 03/14/17 03:40 03/14/17 08:58 03/14/17 09:50 Range/Units White Blood Count 7.05 7.99 4.8-10.8 K/uL Red Blood Count 4.22 4.51 4.2-5.4 M/uL Hemoglobin 12.1 12.8 12.0-16.0 g/dL Hematocrit 37.0 39.1 37-47 % Mean Corpuscular Volume 87.7 86.7 80-100 fL Mean Corpuscular Hemoglobin 28.7 28.4 25-34 pg Mean Corpuscular Hemoglobin Concent 32.7 32.7 32-36 g/dl Platelet Count 195 182 130-400 K/uL Mean Platelet Volume 11.1 12.1 7.4-10.4 fL Neutrophils (%) (Auto) 65.8 % Lymphocytes (%) (Auto) 24.1 % Monocytes (%) (Auto) 7.0 % Eosinophils (%) (Auto) 2.4 % Basophils (%) (Auto) 0.6 % Neutrophils # (Auto) 4.64 1.4-6.5 K/uL Lymphocytes # (Auto) 1.70 1.2-3.4 K/uL Monocytes # (Auto) 0.49 0.11-0.59 K/uL Eosinophils # (Auto) 0.17 0-0.5 K/uL Basophils # (Auto) 0.04 0-0.2 K/uL RDW Standard Deviation 48.6 48.1 36.4-46.3 fL RDW Coefficient of Variation 15.2 15.2 11.5-14.5 % Immature Granulocyte % (Auto) 0.1 % Immature Granulocyte # (Auto) 0.01 0.00-0.02 K/uL Prothrombin Time 12.0 9.0-12.0 SECONDS Prothromb Time International Ratio 1.1 0.9-1.1 Activated Partial Thromboplast Time 29.9 21.0-31.0 SECONDS Partial Thromboplastin Ratio 1.2 Sodium Level 144 136-145 mmol/L Potassium Level 3.6 3.5-5.1 mmol/L Chloride Level 112 98-107 mmol/L Carbon Dioxide Level 28 21-32 mmol/L Anion Gap 4.0 3-11 mmol/L Blood Urea Nitrogen 13 7-18 mg/dl Creatinine 1.40 0.60-1.20 mg/dl Estimated GFR () 44.6 Estimated GFR (Non- 38.5 BUN/Creatinine Ratio 9.4 10-20 Random Glucose 104 70-99 mg/dl Calcium Level 9.2 8.5-10.1 mg/dl Magnesium Level 2.4 1.8-2.4 mg/dl Total Bilirubin 0.3 0.2-1 mg/dl Direct Bilirubin 0.1 0-0.2 mg/dl Aspartate Amino Transf (AST/SGOT) 11 15-37 U/L Alanine Aminotransferase (ALT/SGPT) 17 12-78 U/L Alkaline Phosphatase 89 45-117 U/L Total Creatine Kinase 87 26-192 U/L Creatine Kinase MB 1.2 0.5-3.6 ng/ml Creatine Kinase MB Ratio 1.4 0-3.0 Troponin I < 0.015 0-0.045 ng/ml Total Protein 7.1 6.4-8.2 gm/dl Albumin 4.0 3.4-5.0 gm/dl Lipase 254 73-393 U/L Thyroid Stimulating Hormone (TSH) 0.639 0.300-4.500 uIu/ml Urine Color YELLOW Urine Appearance CLEAR CLEAR Urine pH 7.5 4.5-7.5 Urine Specific [place] 1.008 1.000-1.030 Urine Protein NEG NEG Urine Glucose (UA) NEG NEG Urine Ketones NEG NEG Urine Occult Blood NEG NEG Urine Nitrite NEG NEG Urine Bilirubin NEG NEG Urine Urobilinogen NEG NEG Urine Leukocyte Esterase NEG NEG Test 03/14/17 10:48 03/14/17 11:25 Range/Units Creatine Kinase MB Ratio 0-3.0 Microbiology Results 03/14/17 Urine Culture, Received Pending Assessment and Plan 67 yo F p/w sudden SOB, productive cough,nonradiating, soar throat substernal burning Chest pain, initial troponin neg. ekg showing afib with no acute changes, normal CXR, no fever, leukocytosis Chest pain Differential diagnoses includes but is not limited to acute coronary syndrome, myocardial infarction, pericarditis, pulmonary embolus, aortic dissection, pneumonia, pneumothorax, musculoskeletal, GERD GERD likely given burning sensation in chest and epigastric tenderness. MSK cant be rule out as patient has chest wall tenderness on palpation ACS unlikely given no acute changes on EKG ( findings consistent with hx of afib ), unremarkable negative troponin. Consider Stress test following d/c to r/o Stable angina PE unlikely given character of her pain, . NO Pneumothorax or Pneumonia findings on CXR F/u repeat troponin F/u Echo results Asthma -stable, no wheezing on exam, saturating well on rm air -PRN Ventolin, -PRN nebulizer BRIDGETTE -Baseline 1.1-1.2 -Cr 1.4 on arrival -F/U repeat PRP Seizure Disorder -Keppra, Lamictal, Topiramate GERD -Protonix GI Bleed -reports dark stool -F/u FOBT H/H normal 12.1/37.0--> 12.1/39.1 -previously scheduled visit with Jennifer Crisostomo on Friday 03/16 Resident Physician Supervision Note: I interviewed and examined the patient. Discussed with Dr. Rosado and agree with findings and plan as documented in the note. Any exceptions or clarifications are listed here: 67-year-old female admitted early this morning after she was woken from sleep by sudden onset of chest pain and tightness which she describes as taking her breath away. Her story is somewhat confusing with regards to his location and duration of the discomfort, as it has been described differently to the various examining providers. Nonetheless, when I saw the patient at about 2:00 this afternoon, she complained of pain "all over." When asked to be more specific, she would outlined in area from the midsternal area to the epigastric region. Her previous hospitalization earlier this month is reviewed. She was seen by gastroenterology after she reported bright red blood per rectum combined with some dark stools. She had an EGD showed mild gastritis. She had a colonoscopy which showed some mild sigmoid diverticulosis; it was a poor prep and the patient was to be reprepped for repeat colonoscopy in approximately 3 months. Since her admission, cardiac biomarkers have been negative (troponin undetectable 2). However, this afternoon she began having cardiac pauses of 2 seconds. IMPRESSION 1) chest pain, etiology uncertain 2) reported history of gastrointestinal bleed, recent endoscopies unrevealing, hemoglobin stable 3) history of atrial fibrillation, rate controlled, with 2 second pauses on telemetry 4) therapeutic anticoagulation with Eliquis PLAN 1) resting echocardiogram pending 2) consult cardiology 3) Hemoccult stools 4) EKG in a.m. 5) third troponin is pending 6) decrease Toprol to 12.5 mg daily Documented By: Tyrone Self Discharge planning: home Resident Tracking Resident Involvement: Resident Care Provided Care Provided: Adult Hospital Medicine
[2017-03-14 12:01] LABS: BLOOD UREA NITROGEN 10 mg/dl (7-18); BUN/CREATININE RATIO 8.1 (10-20); CALCIUM 8.8 mg/dl (8.5-10.1); CARBON DIOXIDE 24 mmol/L (21-32); CHLORIDE 115 mmol/L (98-107); CHOLESTEROL 199 mg/dl (0-200); CHOLESTEROL/HDL RATIO 2.2; CKMB/CK RATIO 1.1 (0-3.0); GLUCOSE 90 mg/dl (70-99); HDL CHOLESTEROL 89 mg/dl; LDL CHOLESTEROL CALCULATED 102 mg/dl; POTASSIUM 3.8 mmol/L (3.5-5.1); SODIUM 145 mmol/L (136-145); TRIGLYCERIDES 42 mg/dl (0-150); VERY LOW DENSITY LIPOPROT CALC 8 mg/dl
[2017-03-14] MEDS: OXYCODONE HCL IR 5 MG TAB (IMMEDIATE RELEASE) PO PRN (12:01)
--- NOTE | 2017-03-14 12:36 | ECHOCARDIOGRAM REPORT ---
*NOTICE TO RECEIVING [employer] This information is strictly Confidential and protected under [place] law. [place] law prohibits you from making any further disclosure of this information unless further disclosure is expressly permitted by the written consent of the person to whom it pertains or is authorized by law. A general authorization for the release of medical or other information is not sufficient for this purpose. Hospital accepts no responsibility if the information is made available to any other person, INCLUDING THE PATIENT. Interpretation Summary * Name: LAURA GEIGER Study Date: 03/14/2017 10:18 AM BP: 132/78 mmHg * Patient Location: [facility]\S\N276\S\1 HR: 71 * : 1950 (M/d/yyyy) Gender: Female Height: 67 in * Age: 67 yrs Ethnicity: [place] Weight: 278 lb * Ordering Physician: Dheeraj Baron * Performed By: Judy Colindres * * Reason For Study: CHEST PAIN * BSA: 2.3 m2 * -- Conclusions -- * The study was technically difficult. * The study was technically limited. * Left ventricular systolic function is normal. * The left atrium is mildly dilated. * Mild valvular aortic stenosis. * Right ventricular systolic pressure is elevated at 30-40mmHg. * Compared to a study from 2015, there has been no definite change. Aortic velocities are the same. Procedure Details * A complete two-dimensional transthoracic echocardiogram was performed (2D, M-mode, Doppler and color flow Doppler). * The study was technically difficult. * There were technical limitations due to patient'sbody habitus * Patient did not have an IV- IV team could not find a damion for an IV site. Could not use Definity contrast. * The study was technically limited. Left Ventricle * The left ventricle is grossly normal size. * The basal septum is thickened and angulated consistent with sigmoid septum. * Ejection Fraction = 65-70%. * Left ventricular systolic function is normal. * Regional wall motion abnormalities cannot be excluded due to limited visualization. Right Ventricle * The right ventricle is grossly normal size. Atria * The left atrium is mildly dilated. * Right atrial size is normal. Mitral Valve * The mitral valve is not well visualized. * There is no mitral regurgitation noted. Tricuspid Valve * There is trace tricuspid regurgitation. * Right ventricular systolic pressure is elevated at 30-40mmHg. Aortic Valve * The aortic valve is not well visualized. * Mild valvular aortic stenosis. * No aortic regurgitation is present. Pericardium/Pleural * There is no pericardial effusion. Great Vessels * The inferior vena cava is mildly dilated. MMode 2D Measurements and Calculations IVSd 1.4 cm IVSs 1.8 cm LVIDd 5.3 cm LVIDs 3.3 cm LVPWd 1.0 cm LVPWs 1.9 cm IVS/LVPW 1.3 FS 38.4 % EDV(Teich) 134.1 ml ESV(Teich) 42.6 ml EF(Teich) 68.2 % EDV(cubed) 147.1 ml ESV(cubed) 34.4 ml EF(cubed) 76.6 % % IVS thick 33.2 % % LVPW thick 86.1 % LV mass(C)d 256.1 grams LV mass(C)dI 110.1 grams/m\S\2 LV mass(C)s 258.3 grams LV mass(C)sI 111.0 grams/m\S\2 SV(Teich) 91.5 ml SI(Teich) 39.3 ml/m\S\2 SV(cubed) 112.7 ml SI(cubed) 48.4 ml/m\S\2 ACS 0.87 cm LA dimension 4.2 cm asc Aorta Diam 2.7 cm LVOT diam 1.6 cm LVOT area 2.1 cm\S\2 Doppler Measurements and Calculations MV E max justin 129.8 cm/sec MV dec time 0.18 sec Ao V2 max 230.8 cm/sec Ao max PG 21.3 mmHg Ao max PG (full) 17.9 mmHg SUSAN(V,A) 0.83 cm\S\2 SUSAN(V,D) 0.83 cm\S\2 LV V1 max PG 3.4 mmHg LV V1 max 92.3 cm/sec PA V2 max 77.0 cm/sec PA max PG 2.4 mmHg TR max justin 200.9 cm/sec
--- NOTE | 2017-03-14 21:49 | CARDIOLOGY CONSULTATION ---
DATE OF CONSULTATION: 03/14/2017 REFERRING PHYSICIAN: Philipp Self DO. CHIEF COMPLAINT: Chest pain. HISTORY OF PRESENT ILLNESS: Ms. Andriy Salmon is a 67-year-old woman with a history of atrial fibrillation and mild aortic stenosis, who was awoken from sleep with difficulty breathing. The patient states that she awoke and could not breathe because her airway was closed off. She felt a significant tightening in her throat and this was associated with some discomfort in her throat. She also states some generalized discomfort in the precordial region at this time. Her symptoms persisted and involved an element of pleuritic chest pain. She has some difficulty speaking and felt like her voice was hoarse. She also had some difficulty with swallowing. She eventually notified medical personnel and was brought to [facility] for an additional evaluation. With respect to resolution of the symptoms, they appear to occur spontaneously without any particular intervention. She states that the episode itself may have lasted 20-30 minutes. She continues to have an element of throat discomfort; however, that is reminiscent of her symptoms last evening. These are less severe however. She does have some difficulty with swallowing and there still is an element of pleuritic chest discomfort. Additionally, the patient complains of generalized pain with some specific locality to include the back, the knees, and her abdomen. The patient does not describe similar pain in the past. She states that her breathing is better currently, but not entirely back to normal. She also feels that her voice is hoarse. The patient is a fairly sedentary individual, but does report being able to ambulate around her residence without a walker. For more extended ambulation, she will use a walker on occasion. She is limited to some degree by pain in her legs and mild dyspnea; however, she does work out at [employer] using exercise equipment. She is not able to ambulate on a treadmill. She states that during exercise, she does not have symptoms of chest discomfort or significant limiting dyspnea. She does have rare dizziness. This occurs at nighttime on occasion. This appears to occur spontaneously and not always with the change in movement. It is quite rare and has not differed significantly in several years. She is not aware of any significant palpitations or racing heartbeats. She has never suffered a syncopal episode. PAST MEDICAL HISTORY: Significant for: 1. Atrial fibrillation initially diagnosed in October of 2016. The patient was placed on Eliquis and underwent cardioversion in December of 2016 for what appears to be a short period of normal sinus rhythm. The patient was discovered in January of this year to be back in atrial fibrillation with a controlled rate. 2. Gastroesophageal reflux disease. 3. Gastrointestinal hemorrhage of unclear etiology. 4. Asthma. 5. Carpal tunnel syndrome of the right wrist. 6. History of cellulitis. 7. History of rib fracture. 8. Diverticulosis. 9. Depression. 10. Degenerative joint disease. 11. Hyperlipidemia. 12. Hypertension. 13. Megaloblastic anemia. 14. History of seizure disorder. 15. Aortic stenosis, mild. PAST SURGICAL HISTORY: Includes spinal diskectomy, cataract surgery, cholecystectomy and hysterectomy as well as rotator cuff repair. OUTPATIENT MEDICATIONS: Include Eliquis, Estrace, furosemide, lamotrigine, levetiracetam, metoprolol, pantoprazole, potassium supplementation and a variety of inhaled agents. MEDICAL ALLERGIES: No known medical allergies. FAMILY HISTORY: No premature coronary artery disease. 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 She is a nonsmoker and denies significant alcohol use. Currently lives alone. REVIEW OF SYSTEMS: A complete 10-system review of systems was performed and the pertinent positives are noted in the history of present illness, the remainder being negative. She reports primarily knee pain, which limits her ambulation to some degree. She has continued melena and sometimes gross blood in her stool by report. She has occasional indigestion type symptoms and chronic abdominal discomfort. PHYSICAL EXAMINATION: GENERAL: She was alert and oriented. Her mood and affect appeared normal. She answered all questions appropriately. CURRENT VITAL SIGNS: Include blood pressure 138/64 with a pulse of 82. HEENT: Her sclerae are anicteric. Her pupils are equal, reactive to light and accommodation. Extraocular movements were intact. NECK: Palpation of submandibular region did not reveal any significant lymphadenopathy. The carotids are palpable bilaterally. I do not appreciate any bruits on auscultation. I did not appreciate any jugular venous distention, although the neck tissues are redundant. There is no thyromegaly. LUNGS: Auscultation of her lung apices reveal them to be clear. She had good air movement. There was no expiratory wheezing. She had normal respiratory effort without use of accessory muscles. CARDIAC: Revealed her to be in an irregular rhythm. There was a systolic ejection murmur, which was mid peaking in nature. She has some tenderness along the sternum with palpation as well. ABDOMEN: Soft. EXTREMITIES: Evaluation of both wrists revealed radial pulses that were equal in intensity. There was no evidence of cyanosis or clubbing. Evaluation of her lower extremities did not reveal any significant edema. I do not appreciate any rashes on exam today. LABORATORY STUDIES: Obtained included a white cell count of 7.9, hemoglobin of 12.8, and a platelet count of 182. Sodium is 145, potassium is 3.8, creatinine was 1.3, and BUN was 10. Serial cardiac biomarkers were all less than the detectable limit. Review of the patient's telemetry reveals atrial fibrillation which is rate controlled, occasionally low rates with some periods of ventricular asystole lasting up to 2.5 seconds in duration. Echocardiogram was also obtained during this admission, which revealed that the patient had preserved left ventricular systolic function and evidence of mild aortic stenosis. This appeared to be unchanged from prior studies. ASSESSMENT AND PLAN: 1. Noncardiac chest pain: The patient's symptoms are quite atypical for cardiac syndrome. They are fairly severe in nature. There was a pleuritic component and the primary complaint was difficulty breathing and presumed airway obstruction. The episode itself was of intermediate duration, but there has been no elevation in the cardiac biomarkers and no change in her EKG. I think given the unusual nature of her symptoms and the lack of objective findings, I will not pursue any additional cardiac testing in this case. 2. Atrial fibrillation. The patient appears to be asymptomatic with respect to this arrhythmia. The arrhythmia was present prior to her presentation in the hospital though I doubt that conversion to atrial fibrillation or any associated rhythm problem accounted for her symptoms. She did have a trial of cardioversion, which produced sinus rhythm for only a brief period. Given the relatively asymptomatic nature of the arrhythmia, I do not think additional attempts at cardioversion are necessary. The patient has been maintained on relatively low dose metoprolol and I think her current dose could be continued despite what is being recorded on telemetry. She has resumed her Eliquis after a brief hiatus due to gastrointestinal hemorrhage. 3. Aortic stenosis: This is fairly mild in nature and unlikely to be producing any symptoms. She can have routine followup longitudinally including echocardiography every year for several years at this point.
[2017-03-14 22:05] LABS: CKMB/CK RATIO 0.9 (0-3.0)
[2017-03-15] VITALS (8 sets, daily range): BP systolic 107–159; BP diastolic 55–84; PULSE 61–92; TEMP 36.3–36.7; O2SAT 94–98
[2017-03-15] MEDS: LORAZEPAM 0.5 MG TAB PO SCH (08:35)
[2017-03-15] MEDS: TOPIRAMATE 100 MG TAB PO SCH (08:36)
[2017-03-15] MEDS: DOCUSATE SODIUM 100 MG CAP PO SCH (08:36)
[2017-03-15] MEDS: FUROSEMIDE 20 MG TAB PO SCH (08:37)
[2017-03-15] MEDS: MULTIVITAMIN TAB PO SCH (08:37)
[2017-03-15] MEDS: APIXABAN 2.5 MG TAB PO SCH (08:37)
[2017-03-15] MEDS: METOCLOPRAMIDE HCL 5 MG TAB PO SCH (08:38)
[2017-03-15] MEDS: LEVETIRACETAM 500 MG TAB PO SCH (08:38)
[2017-03-15] MEDS: PANTOprazole SOD 40 MG TAB PO SCH (08:38)
[2017-03-15] MEDS: MAGNESIUM OXIDE 400 MG TAB PO SCH (08:38)
[2017-03-15] MEDS: POTASSIUM CHLORIDE 20 MEQ TABCR PO SCH (08:38)
[2017-03-15] MEDS: ESTRADIOL 1 MG TAB PO SCH (08:38)
[2017-03-15] MEDS: OXYCODONE HCL IR 5 MG TAB (IMMEDIATE RELEASE) PO PRN (08:48)
--- NOTE | 2017-03-15 08:56 | Cardiology Follow-Up ---
Subjective Date of Service: Mar 15, 2017. Pt evaluation today including: conversation w/ patient, physical exam, lab review, review of studies, review of inpatient medication list History of Present Illness Patient feels well this morning, no complaints. No further shortness of breath or chest discomfort. It is hard to evaluate her symptoms, however following cardioversion 01/05/2017 she was back in atrial fibrillation (on electrocardiogram) on 01/25/2017. As near as I can tell she did not have any change in her symptoms. Social History Smoking Status: Never Smoker History of Alcohol Use: No Review of Systems Respiratory: No shortness of breath Cardiac: No chest pain Medications Cardiovascular: Item Value Date Time Metoprolol 12.5 mg 03/15/17 09 Succinate DAILY/PO (Toprol Xl Tab) Apixaban 5 mg 03/14/17899 (Eliquis Tab) BID/PO 03/14/172047 Furosemide 20 mg 03/14/17899 (Lasix Tab) QAM/PO 03/14/17899 Objective Vital Signs Past 12 Hours Date Time Temp Pulse Resp B/P Pulse Ox O2 Delivery O2 Flow Rate FiO2 03/15/17 07:10 36.3 92 16 159/84 96 Room Air 03/15/17 04:23 36.6 61 16 120/71 95 Room Air 03/15/17 04:00 Room Air 03/15/17 00:00 Room Air 03/14/17 23:53 36.4 57 16 96/67 95 Room Air Last Recorded Weight-Kilograms: 118.300 Intake & Output 8-Hour Column 03/14/17 03/15/17 03/15/17 16:00 00:00 08:00 Intake Total 400 ml Output Total 300 ml Balance 100 ml 24-Hour Column 03/15/17 08:00 Intake Total 400 ml Output Total 300 ml Balance 100 ml Physical Exam Constitutional: General Apperance: overweight Level of Distress: NAD Lungs: Auscultation: breath sounds normal Cardiovascular: Heart Auscultation: RRR, II/ OSCAR Data Laboratory Results: Last 24 Hours Test 03/14/17 08:58 03/14/17 09:50 03/14/17 11:25 03/14/17 14:47 Creatine Kinase MB Ratio 1.1 1.0 White Blood Count 7.99 K/uL Red Blood Count 4.51 M/uL Hemoglobin 12.8 g/dL Hematocrit 39.1 % Mean Corpuscular Volume 86.7 fL Mean Corpuscular Hemoglobin 28.4 pg Mean Corpuscular Hemoglobin Concent 32.7 g/dl RDW Standard Deviation 48.1 fL RDW Coefficient of Variation 15.2 % Platelet Count 182 K/uL Mean Platelet Volume 12.1 fL Sodium Level 145 mmol/L Potassium Level 3.8 mmol/L Chloride Level 115 mmol/L Carbon Dioxide Level 24 mmol/L Anion Gap 6.0 mmol/L Blood Urea Nitrogen 10 mg/dl Creatinine 1.30 mg/dl Est Creatinine Clear Calc Drug Dose 55.8 ml/min Estimated GFR () 48.8 Estimated GFR (Non- 42.1 BUN/Creatinine Ratio 8.1 Random Glucose 90 mg/dl Calcium Level 8.8 mg/dl Total Creatine Kinase 137 U/L 146 U/L Creatine Kinase MB 1.5 ng/ml 1.5 ng/ml Troponin I < 0.015 ng/ml < 0.015 ng/ml Triglycerides Level 42 mg/dl Cholesterol Level 199 mg/dl HDL Cholesterol 89 mg/dl LDL Cholesterol, Calculated 102 mg/dl VLDL Cholesterol, Calculated 8 mg/dl Cholesterol/HDL Ratio 2.2 Test 03/14/17 21:00 03/15/17 03:00 Total Creatine Kinase 129 U/L 117 U/L Creatine Kinase MB 1.2 ng/ml 1.2 ng/ml Creatine Kinase MB Ratio 0.9 1.0 Troponin I < 0.015 ng/ml < 0.015 ng/ml Imaging: Echo shows normal left ventricular function with mild aortic stenosis. EKG: Atrial fibrillation with a controlled heart rate Telemetry reviewed: Atrial fibrillation with a controlled heart rate, if anything a little bit slow. Assessment and Plan #1. Shortness of breath and chest discomfort: The cause is unclear, it does not seem to be cardiac. She was not in heart failure, it resolved quickly and her cardiac enzymes have been negative. I don't believe it was due to coronary artery disease or her aortic valve. Perhaps it was pulmonary. #2. Atrial fibrillation: Her atrial fibrillation is well rate controlled, at home she was on metoprolol succinate 25 mg once a day, here she is on an equivalent dose twice a day. Her heart rate is if anything a little low, it may be reasonable to discontinue the metoprolol since she probably doesn't need it for rate control and it is such a low dose probably isn't doing much. She should continue on anticoagulation. Given her lack of symptoms with conversion to sinus rhythm and then back into atrial fibrillation I would not pursue further maintenance of sinus rhythm. #3. Aortic stenosis: Critical stenosis is mild, we will continue to follow that as an outpatient but there is to be done currently. From my standpoint there is no reason to continue to keep her in the hospital.
[2017-03-15] MEDS ORDERED: METOPROLOL SUCC 25MG EXT REL TAB PO SCH (09:00)
--- NOTE | 2017-03-15 10:26 | Discharge Instructions ---
Discharge Instructions Date of Service Mar 15, 2017. Admission Reason for Admission: Chest Pain Discharge Discharge Diagnosis / Problem: Non-Cardiac Chest Pain Discharge Goals Goal(s): Decrease discomfort, Improve function, Increase independence, Improve disease control, Improve nutritional status, Learn about illness, Diagnostic testing, Therapeutic intervention, Screening, Prevent Disease Progression, Specific goals Activity Recommendations Activity Limitations: resume your previous activity . Instructions / Follow-Up Instructions / Follow-Up You came in with Chest Pain, Atrial Fibrillation but work up was negative for Cardiac disease. -Please follow up with Cardiology (Dr. Ricks) for Holter monitoring to monitor the rhythm of heart in 3 wks -Please stop taking the medication Metoprolol -Please take other medication as prescribed -Please follow up with Dr. Dumont for GI Bleeding this week -Please follow up with Primary care provider within 1-2 wks -If you experience recurrence of Chest pain, Shortness of breath, fevers, syncope or you feel concerned, please return to Emergency Dept. for evaluation or call clinic Current Hospital Diet Patient's current hospital diet: AHA Diet (Heart Healthy) Discharge Diet Recommended Diet: Regular Diet Procedures Procedures Performed: CXR Echocardiogram Pending Studies Studies pending at discharge: no Laboratory Results Lipid Panel Test 03/14/17 11:25 Range/Units Triglycerides Level 42 0-150 mg/dl Cholesterol Level 199 0-200 mg/dl HDL Cholesterol 89 mg/dl Cholesterol/HDL Ratio 2.2 LDL Cholesterol, Calculated 102 mg/dl Medical Emergencies . Who to Call and When: Medical Emergencies: If at any time you feel your situation is an emergency, please call 911 immediately. . Non-Emergent Contact Non-Emergency issues call your: Primary Care Provider, Sales Agent [employer]est [employer] Service, Learning Center Instructor Call Non-Emergent contact if: temperature is above 100.5, your pain is not controlled, your pain is worsening, your pain is unusual for you, your pain is concerning you, you have any medication questions . . "Provider Documentation" section prepared by Darnell Rosado. . VTE Core Measure Inpt VTE Proph given/why not?: Other Anticoagulation (Apixaban), Treatment not indicated (already on anticoagualtion)
--- NOTE | 2017-03-15 14:34 | Discharge Summary ---
Discharge Summary Date of Service Mar 15, 2017. (Darnell Rosado MD) Discharge Summary Admission Date: Mar 14, 2017 at 03:03 Discharge Date: Mar 15, 2017 Discharge Disposition: Home Principal Diagnosis: Non-cardiac Chest Pain Problems/Secondary Diagnoses: Atrial Fibrillation GERD Immunizations: Have You Had Influenza Vaccine: Yes Influenza Vaccine Date: Sep 10, 2011 History of Tetanus Vaccine?: Yes Tetanus Immunization Date: Mar 07, 1997 History of Pneumococcal: Yes Pneumococcal Date: Sep 09, 2011 History of Hepatitis B Vaccine: No Hepatitis Immunization Date: Jul 01, 2006 Procedures: Interpretation Summary * Name: LAURA GEIGER Study Date: 03/14/2017 10:18 AM BP: 132/78 mmHg * Patient Location: [facility]\S\76\S\1 HR: 71 * : 1950 (M/d/yyyy) Gender: Female Height: 67 in * Age: 67 yrs Ethnicity: [place] Weight: 278 lb * Ordering Physician: Dheeraj Baron * Performed By: Judy Colindres * * Reason For Study: CHEST PAIN * BSA: 2.3 m2 * -- Conclusions -- * The study was technically difficult. * The study was technically limited. * Left ventricular systolic function is normal. * The left atrium is mildly dilated. * Mild valvular aortic stenosis. * Right ventricular systolic pressure is elevated at 30-40mmHg. * Compared to a study from 2015, there has been no definite change. Aortic velocities are the same. Procedure Details * A complete two-dimensional transthoracic echocardiogram was performed (2D, M-mode, Doppler and color flow Doppler). * The study was technically difficult. * There were technical limitations due to patient'sbody habitus * Patient did not have an IV- IV team could not find a damion for an IV site. Could not use Definity contrast. * The study was technically limited. Left Ventricle * The left ventricle is grossly normal size. * The basal septum is thickened and angulated consistent with sigmoid septum. * Ejection Fraction = 65-70%. * Left ventricular systolic function is normal. * Regional wall motion abnormalities cannot be excluded due to limited visualization. Right Ventricle * The right ventricle is grossly normal size. Atria * The left atrium is mildly dilated. * Right atrial size is normal. Mitral Valve * The mitral valve is not well visualized. * There is no mitral regurgitation noted. Tricuspid Valve * There is trace tricuspid regurgitation. * Right ventricular systolic pressure is elevated at 30-40mmHg. Aortic Valve * The aortic valve is not well visualized. * Mild valvular aortic stenosis. * No aortic regurgitation is present. Pericardium/Pleural * There is no pericardial effusion. Great Vessels * The inferior vena cava is mildly dilated. MMode 2D Measurements and Calculations IVSd 1.4 cm IVSs 1.8 cm LVIDd 5.3 cm LVIDs 3.3 cm LVPWd 1.0 cm LVPWs 1.9 cm IVS/LVPW 1.3 FS 38.4 % EDV(Teich) 134.1 ml ESV(Teich) 42.6 ml EF(Teich) 68.2 % EDV(cubed) 147.1 ml ESV(cubed) 34.4 ml EF(cubed) 76.6 % % IVS thick 33.2 % % LVPW thick 86.1 % LV mass(C)d 256.1 grams LV mass(C)dI 110.1 grams/m\S\2 LV mass(C)s 258.3 grams LV mass(C)sI 111.0 grams/m\S\2 SV(Teich) 91.5 ml SI(Teich) 39.3 ml/m\S\2 SV(cubed) 112.7 ml SI(cubed) 48.4 ml/m\S\2 ACS 0.87 cm LA dimension 4.2 cm asc Aorta Diam 2.7 cm LVOT diam 1.6 cm LVOT area 2.1 cm\S\2 Doppler Measurements and Calculations MV E max justin 129.8 cm/sec MV dec time 0.18 sec Ao V2 max 230.8 cm/sec Ao max PG 21.3 mmHg Ao max PG (full) 17.9 mmHg SUSAN(V,A) 0.83 cm\S\2 SUSAN(V,D) 0.83 cm\S\2 LV V1 max PG 3.4 mmHg LV V1 max 92.3 cm/sec PA V2 max 77.0 cm/sec PA max PG 2.4 mmHg TR max justin 200.9 cm/sec CHEST ONE VIEW PORTABLE CLINICAL HISTORY: Weakness, shortness of breath. COMPARISON STUDY: 02/23/2017 FINDINGS: The heart is mildly enlarged. There is no failure. There is no focal pulmonary consolidation. There are no pleural effusions. There are surgical clips projected over the esophagogastric junction left upper quadrant. There are postsurgical changes within the cervical spine.[ IMPRESSION: Stable mild cardiomegaly. No acute findings. Consultations: Cardiology (Darnell Rosado MD) Medication Reconciliation Continued Medications: Albuterol Hfa (Ventolin Hfa) 200 Puffs/70127 Mcg Aers 2 PUFFS PO UD PRN for SOB/Wheezing Albuterol Sulf (Proventil 0.083% 2.5MG/3ML) 2.5 Mg/3 Ml Nebu 1 DOSE NEB UD PRN for SOB/Wheezing Albuterol Sulfate (Proair Respiclick) 108 Mcg/Act Aer 2 PUFF INH QID PRN for Shortness of Breath Apixaban (Eliquis) 5 Mg Tab 5 MG PO BID Docusate Sodium (Colace) 100 Mg Cap 1 CAP PO BID Estradiol (Estrace) 1 Mg Tab 1 MG PO QAM, TAB Furosemide (Lasix) 20 Mg Tab 20 MG PO QAM Lamotrigine (Lamictal) 100 Mg Tab 100 MG PO BID, TAB Levetiractam (Levetiracetam) 500 Mg Tab 500 MG PO BID Lorazepam (Ativan) 0.5 Mg Tab 0.5 MG PO BID Magnesium Oxide (Mag-Ox) 400 Mg Tab 400 MG PO BID, TAB Metoclopramide Hcl (Metoclopramide Hcl) 5 Mg Tab 5 MG PO BID Multivitamin (Multivitamin) Tab 1 TAB PO DAILY, TAB Oxycodone Ir (Roxicodone Ir) 5 Mg Tab 1-2 TAB PO Q4H PRN for Severe Pain, #12 TAB Pantoprazole Sodium (Protonix) 40 Mg Tab 40 MG PO BID Potassium Chloride Microencaps (Potassium Chloride Er) 20 Meq Tab 20 MEQ PO DAILY Sulfa/Trimethoprim (Bactrim Ds 800MG/160MG) Tab 1 TAB PO DAILY, #6 TAB Topiramate (Topiramate) 100 Mg Tab 100 MG PO BID Discontinued Medications: Metoprolol Succinate (Metoprolol Succinate ER) 25 Mg Tabcr 25 MG PO DAILY Discharge Exam Patient reported complete resolution of Chest pain, SOB, palpitation. She denied presyncope, syncope, orthopnea, PND. Patient stated she wanted to go home. Review of Systems: Constitutional: No chills, No fever, No weakness Respiratory: No cough, No shortness of breath, No sputum Cardiovascular: No PND, No chest pain, No orthopnea, No palpitations Abdomen: No nausea, No pain, No vomiting Genitourinary - Male: No dysuria, No hematuria, No urinary frequency Neurologic: No numbness/tingling, No weakness Physical Exam: General Appearance: WD/WN, no apparent distress, + obese Eyes: normal inspection, PERRL, EOMI Neck: supple, trachea midline Cardiovascular: regular rate, rhythm, no murmur, normal peripheral pulses Abdomen / GI: normal bowel sounds, non tender, soft, + pertinent finding ( mild generalized tenderness to palpation) Extremities: no calf tenderness, + pedal edema Neurologic/Psychiatric: alert, normal mood/affect, normal reflexes Skin: normal color, warm/dry (Darnell Rosado MD) Hospital Course This is a 67 yo F w/ hx of Atrial Fibrillation who presented with a group of symptoms that were described differently among providers that evaluated her. This ranged from Shortness of breath and squeezing Chest pain to primarily soar throat vs substernal burning sensation. Symptoms occurred for 2 day without fever or chills. Vital signs were stable. She was admitted to Observation for Chest pain rule out. EKG was consistent with Afib with no acute ischemic changes. During hospital stay Cardiac enzymes were trended and remained unremarkable. CXR showed no acute findings.By day of discharge, patient's chest discomfort, sob were completely resolved. Cardiology was consulted following 2 sec pause and bradycardia in the 50's in Afib. Patient was asymptomatic and staple. By discharge, Metoprolol was discontinued with outpatient followup to Dr. Ricks in 3 wks for Holter monitoring. Patient also reported hx of dark stool x 1 month. IN 02/23/17, patient was evaluated in February with Colonoscopy showing diverticulosis, internal hemorrhoids. Patient did not arrive anemic and Vital signs were stable, H/H remained stable during hospital stay. patient previously had been scheduled to see Dr. Dumont at [facility] for further evaluation Patient was also found to have positive urine culture for gram negative bacilli. She was sent home on 7 days course of Ciprofloxacin discharge. Total Time Spent: Less than 30 minutes This includes examination of the patient, discharge planning, medication reconciliation, and communication with other providers. (Darnell Rosado MD) Resident Physician Supervision Note: I interviewed and examined the patient. Discussed with Dr. Rosado and agree with findings and plan as documented in the note. Any exceptions or clarifications are listed here: Upon examination today, the patient was up out of bed and able living with a walker. She stated that she felt much better. She did not have any chest pain , shortness of breath, or abdominal pain. She was looking forward to going home. I also personally discussed the case with her skeiner. He recommended discontinuing the patient's metoprolol; he will follow-up with the patient in the office with a Holter monitor and follow-up. The patient has an outpatient appointment with her database admin tomorrow. She is advised to keep this appointment. Documented By: Tyrone Self Total Time Spent: Less than 30 minutes I spent 25 minutes on this discharge. (Tyrone Self.,D.O.) Discharge Instructions Please refer to the electronic Patient Visit Report (Discharge Instructions) for additional information. (Darnell Rosado MD) Additional Copies To Marcelo Escoto M.D. Resident Tracking Resident Involvement: Resident Care Provided Care Provided: Adult [facility] (Darnell Rosado MD)
[2017-03-15] MEDS ORDERED: CIPR1TAB11 PO (14:55)
[2017-05-29] MEDS ORDERED: ATRIN INH (14:46)
[2017-05-29] MEDS ORDERED: VOLTAREN GEL TOP (14:46)
[2017-05-29] MEDS ORDERED: FLUT0.15 NAE (14:46)
[2017-05-29] MEDS ORDERED: FERR1TAB13 PO (14:46)
[2017-05-29] MEDS ORDERED: LAMO200T38 PO (14:46)
[2017-07-02] MEDS ORDERED: MULT-1042 PO (00:01)
[2017-07-02] MEDS ORDERED: SENN-65 PO (00:02)
[2017-07-04] MEDS ORDERED: CEPH500C PO (13:08)
[2017-07-04] MEDS ORDERED: HYDR-4079 PO (13:08)
[2017-07-04] MEDS ORDERED: SULF800T23 PO (18:32)
[2017-08-16] MEDS ORDERED: DOCU-94 PO (17:23)
[2017-08-16] MEDS ORDERED: APIX1TAB3 PO (17:23)
[2017-08-16] MEDS ORDERED: TPRSR/25 PO (17:23)
[2017-08-16] MEDS ORDERED: METO5TAB2 PO (17:23)
[2017-08-16] MEDS ORDERED: LAMO100T16 PO (17:23)
[2017-08-16] MEDS ORDERED: POTA20TA13 PO (17:23)
[2017-08-16] MEDS ORDERED: LAMO200T38 PO (17:23)
[2017-08-16] MEDS ORDERED: FLUT0.15 NAE (17:23)
[2017-08-16] MEDS ORDERED: LEVE500T PO (17:23)
[2017-08-16] MEDS ORDERED: VNTHFA/IN PO (17:23)
[2017-08-16] MEDS ORDERED: SULF800T23 PO (17:23)
[2017-08-16] MEDS ORDERED: LORA-741 PO (17:23)
[2017-08-16] MEDS ORDERED: FERR1TAB13 PO (17:23)
[2017-08-16] MEDS ORDERED: IPRA0.03 NAE (17:23)
[2017-08-16] MEDS ORDERED: FURO20TA PO (17:23)
[2017-08-16] MEDS ORDERED: TPM100 PO (17:23)
[2017-08-16] MEDS ORDERED: PANT40TA PO (17:23)
== END 2017-03-15 17:00 | disposition home or self-care (01) ==
LOC: ENRESERVDT → ENRESERVTM → EDBD 00:29 → C.EDA 00:30 → C.MED 03:03
PROVIDERS: ADMIT Student in an Organized Health Care Education/Training Program; ATTEND Family Medicine
DX: R07.89 Other chest pain (principal); I48.91 Unspecified atrial fibrillation; K21.9 Gastro-esophageal reflux disease without esophagitis; I35.0 Nonrheumatic aortic (valve) stenosis; J45.909 Unspecified asthma, uncomplicated; I10 Essential (primary) hypertension; G40.909 Epilepsy, unspecified, not intractable, without status epilepticus; Z98.49 Cataract extraction status, unspecified eye; Z79.01 Long term (current) use of anticoagulants; Z79.899 Other long term (current) drug therapy; Z98.890 Other specified postprocedural states; Z90.49 Acquired absence of other specified parts of digestive tract; Z90.710 Acquired absence of both cervix and uterus; Z80.9 Family history of malignant neoplasm, unspecified; Z82.49 Family history of ischemic heart disease and other diseases of the circulatory system; Z84.1 Family history of disorders of kidney and ureter; Z82.0 Family history of epilepsy and other diseases of the nervous system

== ENCOUNTER → 2017-03-23 | Outpatient (CLI) | payer OTHER ==
[~2017-03-23] MED LIST changes: +ASCA500 PO; +ASCO500T16 PO; +ATRIN INH; +CEPH500C PO; +CIPR1TAB11 PO; +ESTCR PV; +FERR1TAB13 PO; +FLUT0.15 NAE; +HYDR-4079 PO; +IPRA0.03 NAE; +LAMO200T38 PO; +MULT-1042 PO; +OXYC-57 PO; +SENN-65 PO; +VOLTAREN GEL TOP; +[UNRECOGNIZED DRUG - CODE] PO
--- NOTE | 2017-03-23 12:07 | DIAGNOSTIC IMAGING REPORT ---
MODIFIED BARIUM SWALLOW CLINICAL HISTORY: Dysphagia. COMPARISON STUDY: Barium swallow October 06, 2013. FLUOROSCOPY TIME: 2.2 MINUTES. FINDINGS: Note was made of moderate esophageal dysmotility and a moderate sized hiatal hernia. A 13 mm barium tablet passed into the stomach. There was penetration within liquids but no aspiration. There was no aspiration with nectar thick liquids, pudding or crackers with paste. IMPRESSION: 1. Intact swallowing mechanism. No tracheal aspiration. 2. Moderate esophageal dysmotility and a moderate hiatal hernia. 3. Full recommendations by speech pathology to follow. Electronically signed by: Hair Green M.D. 03/23/2017 12:06 PM Dictated Date/Time: 03/23/2017 12:02 PM
--- NOTE | 2017-03-23 19:07 | SWALLOWING EVALUATION ---
REFERRING SPEECH PATHOLOGIST: HISTORY: This 67 year-old female was referred for a VFSS at in order to address c/o solid food dysphagia and pill dysphagia. The patient has a PMH significant for GERD, hypertension, DJD, falls, seizure, migraine, c-spine surgery, and renal insufficiency. She had an EGD completed 02/26/2017 that revealed a large hiatal hernia and gastritis. She had a Barium Swallow Study completed in 2012 that was (+) for moderate esophageal dysmotility, YENNY, and hiatal hernia. Recently she was admitted OBS status (03/14-) for chest pain that was possibly related to GI dysfunction. The patient repeatedly reported that she is having "black stool" and is very concerned about "bleeding with my bowels". She said her physicians are aware of the issue and following her for it. Currently the patient's diet level is regular, but she states that there are times she regurgitates food and/or pills because they "get stuck". She points to the level of the clavicle when describing where it feels solids get stuck. PROCEDURE: The patient was seen in the Radiology Department of for the VFSS. Cursory examination of the oral cavity revealed adequate dentition. Movement of the articulators was WNL. The patient was seated on a stool and was viewed in both the Anterior-Posterior (A-P) and Lateral planes. Volitional phonation exercises completed in the A-P plane revealed bilateral vocal fold movement and vocal intensity within functional limits. In the lateral plane, the patient was given the following boluses: 1 tsp. thin liquid barium x 2, sequential swallows of thin liquid barium self-presented from a cup, 1 tsp. nectar-thick liquid barium, single swallow nectar-thick liquid barium self-presented from a cup, 1 tsp. barium pudding, and 1 club cracker with barium pudding. The patient was then repositioned into the A-P plane and a 1/2" barium tablet with water. RESULTS: Oral Stage: No oral stage dysphagia was evidenced. Lip seal, bolus preparation and transport, oral bolus clearance and pharyngeal swallow initiation were all WFL. Pharyngeal Stage: Velar elevation, laryngeal elevation, anterior hyoid excursion, epiglottic inversion, laryngeal vestibular closure, pharyngeal stripping wave, pharyngeal bolus clearance and tongue base retraction were all WFL. Distention and duration of PES opening was adequate, but incomplete, due to decreased elasticity presumed to be from the cervical hardware present. There was a single episode of penetration of thin liquids, but NO ASPIRATION during this study. The pharyngeal swallow is considered to be WFL. Esophageal Stage: Solid food boluses were slow to clear the cervical esophagus; however a barium table cleared easily and transited the esophagus without hesitation. SUMMARY/RECOMMENDATIONS: This patient presents with mild pharyngo-esophageal dysphagia. The following is recommended: 1. SLIPPERY DIET (guidelines given to patient in writing) 2. Compensatory Strategies: take medications in a carrier (e.g., applesauce, pudding, yogurt, etc.); alternate solids and liquids during meals 3. Consideration of continued GI f/u for any persistent complaints and/or for the c/o black stool 4. Home Health [facility] consultation for help with implementation of diet recommendations and strategies could be considered for this patient. A summary of the results and recommendations was discussed with the patient immediately following the study. She verbalized understanding; however I am unsure she is truly able to follow through appropriately. The patient's cognitive status seemed questionable as she tried to follow directions, answer questions, and stay on topic in conversation. Thank you for referral of this patient. Please contact me at if any additional information is needed.
== END | disposition home or self-care (01) ==
LOC: C.RAD 11:14
PROVIDERS: ATTEND Nurse Practitioner Family
DX: R13.10 Dysphagia, unspecified (principal); K22.4 Dyskinesia of esophagus; K44.9 Diaphragmatic hernia without obstruction or gangrene

== ENCOUNTER → 2017-03-29 | Outpatient (CLI) | payer OTHER ==
[2017-03-29 17:42] LABS: URINE APPEARANCE CLEAR (CLEAR); URINE BILIRUBIN NEG (NEG); URINE COLOR YELLOW; URINE EPITHELIAL CELL AUTO 20-30 /lpf (0-5); URINE NITRITE NEG (NEG); URINE PH 5.5 (4.5-7.5); URINE SPECIFIC GRAVITY 1.021 (1.000-1.030); UROBILINOGEN NEG (NEG); ZZUR CULT IF INDIC CLEAN CATCH NO
[2017-03-29 17:44] LABS: MANUAL MICROSCOPIC REQUIRED? NO; REVIEW REQ? NO
== END | disposition home or self-care (01) ==
LOC: C.LABBFT 09:51
PROVIDERS: ATTEND Nurse Practitioner
DX: R39.9 Unspecified symptoms and signs involving the genitourinary system (principal)

== ENCOUNTER → 2017-06-12 | Day surgery (SDC) | payer OTHER ==
[2017-06-04 10:30] VITALS: Ht 170.2 cm; Wt 122.3 kg
[~2017-06-12] VITALS: Ht 170.2 cm; Wt 122.3 kg
[~2017-06-12] MED LIST changes: -ALBU18002 INH; -CIPR1TAB11 PO; -ESTR1 PO; +FENTANYL CITRATE INJ 50 MCG/1 ML 2 ML VIAL ONE; +LIDOCAINE HCL 2% 2 ML VIAL (20MG/ML) ONE; +PROPOFOL IV EMULSION 10 MG/ML 20 ML VIAL IV ONE; +SODIUM CHLORIDE 0.9% 500ML 500 ML IV ONE
--- NOTE | 2017-06-12 12:42 | Endo History and Physical ---
History & Physical Date of Service: Jun 12, 2017. Chief Complaint: Rectal Bleed Referring Physician: Dr Escoto History of Present Illness 67 yo presenting for colonoscopy for polyp history and rectal bleeding Past Medical History Osteoporosis, Arthritis, Asthma, Reflux, Seizure Disorder, Sleep Apnea, Hypertension, COPD Past Surgical History Hx Cardiac Surgery: No Hx Internal Defibrillator: No Hx Pacemaker: No Hx Abdominal Surgery: Yes (PATRICIO, APPY, COLON RESECTION, OPEN TEODORO FUNDOPLICATION) Hx of Implantable Prosthesis: No Hx Post-Op Nausea and Vomiting: No Hx Cancer Surgery: No Hx Thoracic Surgery: No Hx Orthopedic: Yes (NECK AND BACK SURGERY, LEFT SHOULDER REPAIR) Hx Urinary Tract Surgery: No Family History None Social History Smoking Status: Never Smoker Hx Substance Use: No Hx Alcohol Use: No Allergies Coded Allergies: NO KNOWN DRUG ALLERGIES (Verified Allergy, Unknown, NKDA, 06/04/17) Adhesives (Verified Adverse Reaction, Unknown, ITCHY, 06/04/17) Current Medications Reported Home Medications Medications Dose Route/Sig Max Daily Dose Days Date Category Dose Instructions [Voltaren Gel] 1 Dose TOP UD PRN 05/29/17 Reported Lamictal (Lamotrigine) 200 Mg Tab 200 Mg PO BID 05/29/17 Reported TOTAL DOSE 300MG PO BID Atrovent Hfa (Ipratropium [place]) 200 Puffs/3400 Mcg Aers 2 Puffs INH QID PRN 05/29/17 Reported Flonase Allergy Relief (Fluticasone Propionate (Nasal)) 50 Mcg/Act Spr 2 [place] MORIS QAM 05/29/17 Reported Kp Ferrous Sulfate (Ferrous Sulfate) 325 Mg Tab 1 Tab PO BID 30 05/29/17 Reported Colace (Docusate Sodium) 100 Mg Cap 1 Cap PO BID 01/05/17 Reported Lamictal (Lamotrigine) 100 Mg Tab 100 Mg PO BID 01/05/17 Reported Multivitamin (Multivitamins) Tab 1 Tab PO QAM 12/05/16 Reported Bactrim Ds 800MG/160MG (Trimethoprim/Sulfamethoxazole) Tab 1 Tab PO QAM 12/05/16 Reported TAKES ON REGULAR BASIS Mag-Ox (Magnesium Oxide) 400 Mg Tab 400 Mg PO BID 12/05/16 Reported Ativan (Lorazepam) 0.5 Mg Tab 0.5 Mg PO BID 12/05/16 Reported Proventil 0.083% 2.5MG/3ML (Albuterol Sulf) 2.5 Mg/3 Ml Nebu 1 Dose NEB UD PRN 12/05/16 Reported Ventolin Hfa (Albuterol) 200 Puffs/60105 Mcg Aers 2 Puffs PO UD PRN 12/05/16 Reported Eliquis (Apixaban) 5 Mg Tab 5 Mg PO BID 12/05/16 Reported Protonix (Pantoprazole Sodium) 40 Mg Tab 40 Mg PO BID 12/05/16 Reported Levetiracetam (Levetiractam) 500 Mg Tab 500 Mg PO BID 12/05/16 Reported Topiramate 100 Mg Tab 100 Mg PO BID 04/16/16 Reported Potassium Chloride Er (Potassium Chloride Microencaps) 20 Meq Tab 20 Meq PO QAM 01/20/16 Reported Metoclopramide Hcl 5 Mg Tab 5 Mg PO BID 09/23/15 Reported Lasix (Furosemide) 20 Mg Tab 20 Mg PO QAM 09/23/15 Reported Vital Signs Weight (Kilograms): 122.27 Height (Feet): 5 Height (Inches): 7 Date Time Temp Pulse Resp B/P (MAP) Pulse Ox O2 Delivery O2 Flow Rate FiO2 06/12/17 12:31 36.9 90 20 190/96 (127) 95 Room Air Physical Exam General Appearance: + obese Respiratory/Chest: Respiratory effort: no dyspnea Auscultation: breath sounds normal, CTA except as noted, no wheezing Cardiovascular: Apical Impulse: not displaced Heart Auscultation: RRR, normal S1, normal S2, no gallops Abdomen: Bowel Sounds: normal Inspection & Palpation: soft, non-distended Assessment and Plan 67 yo presenting for colonoscopy for polyp history and rectal bleeding
--- NOTE | 2017-06-12 13:24 | GI REPORT ---
Procedure Date: 06/12/2017 12:35 PM Procedure: Colonoscopy Indications: High risk colon cancer surveillance: Personal history of colonic polyps, Incidental - Rectal bleeding Medicines: General Anesthesia Complications: No immediate complications. Estimated blood loss: None. Estimated Blood Loss: Estimated blood loss: none. Procedure: Pre-Anesthesia Assessment: - Pre-Anesthesia Assessment: - Prior to the procedure, a History and Physical was performed, and patient medications, allergies and sensitivities were reviewed. The patient's tolerance of previous anesthesia was reviewed. Please see [email or web address] for complete details. - The risks and benefits of the procedure and the sedation options and risks were discussed with the patient. All questions were answered and informed consent was obtained. - Patient identification and proposed procedure were verified prior to the procedure by the physician and the nurse. The procedure was verified in the pre-procedure area in the procedure room. After obtaining informed consent, the endoscope was passed carefully and meticuously under direct vision and only advanced when the lumen was clearly identified, C02 insuflation was utilized throughout the entirity of the procedure. Throughout the procedure, the patient's blood pressure, pulse, and oxygen saturations were monitored continuously. After I obtained informed consent, the scope was passed under direct vision. Throughout the procedure, the patient's blood pressure, pulse, and oxygen saturations were monitored continuously. The scope was introduced through the anus and advanced to the terminal ileum, with identification of the appendiceal orifice and IC valve. The colonoscopy was performed without difficulty. The patient tolerated the procedure well. The quality of the bowel preparation was poor. Findings: Multiple small-mouthed diverticula were found in the sigmoid colon. Internal hemorrhoids were found during retroflexion. Impression: - Preparation of the colon was poor. - Diverticulosis in the sigmoid colon. - Internal hemorrhoids. - No specimens collected. Recommendation: - Repeat colonoscopy in 5 years for surveillance. - Return to referring physician as previously scheduled. - Return to referring physician as previously scheduled. Augustus Dumont MD 06/12/2017 1:23:09 PM This report has been signed electronically. Note Initiated On: 06/12/2017 12:35 PM I attest to the content of the Intraoperative Record and orders documented therein, exceptions below
--- NOTE | 2017-06-12 13:33 | Discharge Instructions ---
Endoscopy Patient Instructions Date / Procedure(s) Performed Jun 12, 2017. Colonoscopy Allergy Information Coded Allergies: NO KNOWN DRUG ALLERGIES (Verified Allergy, Unknown, NKDA, 06/04/17) Adhesives (Verified Adverse Reaction, Unknown, ITCHY, 06/04/17) Discharge Date / Findings Jun 12, 2017. Fair prep No polyps/masses Internal hemorrhoids Diverticuli Provider Instructions Activity Restrictions - No exercising or heavy lifting for 24 hours. - Do not drink alcohol the day of the procedure. - Do not drive a car or operate machinery until the day after the procedure. - Do not make any important decisions or sign important papers in 24 hours after the procedure. Following Day: - Return to full activity which may include returning to work/school. Diet Start your diet with liquids and light foods (jello, soup, juice, toast). Then eat your usual diet if not nauseated. Treatment For Common After Affects For mild abdominal pain, bloating, or excessive gas: - Rest - Eat lightly - Lie on right side Follow-Up Information Follow-up with Dr Escoto as scheduled Anesthesia Information What You Should Know You have had a procedure that required some medicine to reduce anxiety and discomfort. This treatment is called moderate sedation. After receiving the treatment, you may be sleepy, but you will be able to breathe on your own. The effects of the treatment may last for several hours. Follow these instructions along with Activity/Diet recommendations noted above: * Do NOT do anything where dizziness or clumsiness would be dangerous. * Rest quietly at home today, then you can be up and about tomorrow. * Have a responsible person stay with you the rest of today. * You may have had an I.V. today. If so, you may take the dressing off later today. Recommendations Call your doctor if: * Trouble breathing * Continuous vomiting for more than 24 hours * Temperature above 101 degrees * Severe abdominal pain or bloating * Pain not relieved by pain medicine ordered * There is increased drainage or redness from any incision * A large amount of rectal bleeding greater than 2-3 tablespoons. (If you had a polyp/s removed or have hemorrhoids, a small amount of blood - from the rectum is to be expected.) * You have any unanswered questions or concerns. IN THE EVENT OF A SERIOUS EMERGENCY, GO TO THE NEAREST EMERGENCY ROOM Your discharge instructions were prepared by provider Augustus Dumont. Patient Instructions Signature Page Andriy Salmon Patient (or Guardian) Signature/Date: I have read and understand the instructions given to me by my caregivers. Caregiver/RN/Doctor Signature/Date: The above-named patient and/or guardian has received patient instructions on this date. + Original Patient Signature Page (only) stays with chart. Please make copy for patient.
[2017-06-12 13:55] VITALS: BP 139/74; PULSE 73; O2SAT 98
--- NOTE | 2017-06-12 15:20 | Anesthesiology Progress Note ---
Anesthesia Post Op Note Date & Time Jun 12, 2017 at 15:20 Vital Signs Pain Intensity: 3 Vital Signs Past 12 Hours Date Time Temp Pulse Resp B/P (MAP) Pulse Ox O2 Delivery O2 Flow Rate FiO2 06/12/17 13:55 73 18 139/74 (95) 98 Room Air 06/12/17 13:41 74 18 117/77 (90) 97 Room Air 06/12/17 13:30 79 20 136/87 (103) 98 Room Air 06/12/17 12:31 36.9 90 20 190/96 (127) 95 Room Air Notes Mental Status: alert / awake / arousable, participated in evaluation Pt Amnestic to Procedure: Yes Nausea / Vomiting: adequately controlled Pain: adequately controlled Airway Patency, RR, SpO2: stable & adequate BP & HR: stable & adequate Hydration State: stable & adequate Anesthetic Complications: no major complications apparent
== END | disposition home or self-care (01) ==
LOC: C.GI 11:41
PROVIDERS: ATTEND Internal Medicine
DX: Z12.11 Encounter for screening for malignant neoplasm of colon (principal); Z86.010 Personal history of colon polyps; K57.30 Diverticulosis of large intestine without perforation or abscess without bleeding; K64.8 Other hemorrhoids; M81.0 Age-related osteoporosis without current pathological fracture; M19.90 Unspecified osteoarthritis, unspecified site; K21.9 Gastro-esophageal reflux disease without esophagitis; R56.9 Unspecified convulsions; G47.30 Sleep apnea, unspecified; I10 Essential (primary) hypertension; J44.9 Chronic obstructive pulmonary disease, unspecified; Z90.49 Acquired absence of other specified parts of digestive tract; I48.91 Unspecified atrial fibrillation; E78.5 Hyperlipidemia, unspecified; N18.9 Chronic kidney disease, unspecified

== ENCOUNTER 2017-06-19 05:03 | Inpatient (IN) | payer OTHER ==
[2017-05-29 14:47] VITALS: BMI 42.0
--- NOTE | 2017-05-29 15:33 | PAT Medication Instructions ---
Service Date May 29, 2017. Current Home Medication List Albuterol Hfa (Ventolin Hfa), 2 PUFFS PO UD PRN for SOB/Wheezing Albuterol Sulf (Proventil 0.083% 2.5MG/3ML), 1 DOSE NEB UD PRN for SOB/Wheezing Apixaban (Eliquis), 5 MG PO BID Docusate Sodium (Colace), 1 CAP PO BID Ferrous Sulfate (Kp Ferrous Sulfate), 1 TAB PO BID Fluticasone Propionate (Nasal) (Flonase Allergy Relief), 2 SPRAY MORIS QAM Furosemide (Lasix), 20 MG PO QAM Ipratropium [place] (Atrovent Hfa), 2 PUFFS INH QID PRN for SOB/Wheezing Lamotrigine (Lamictal), 100 MG PO BID Lamotrigine (Lamictal), 200 MG PO BID Levetiractam (Levetiracetam), 500 MG PO BID Lorazepam (Ativan), 0.5 MG PO BID Magnesium Oxide (Mag-Ox), 400 MG PO BID Metoclopramide Hcl (Metoclopramide Hcl), 5 MG PO BID Multivitamin (Multivitamin), 1 TAB PO QAM Pantoprazole Sodium (Protonix), 40 MG PO BID Potassium Chloride Microencaps (Potassium Chloride Er), 20 MEQ PO QAM Sulfa/Trimethoprim (Bactrim Ds 800MG/160MG), 1 TAB PO QAM Topiramate (Topiramate), 100 MG PO BID [Voltaren Gel], 1 DOSE TOP UD PRN for Pain Medication Instructions For Your Scheduled Surgery - Instructions per Cardiology: Apixaban (Eliquis), 5 MG PO BID - Hold the following medications 24 hours prior to surgery: [Voltaren Gel], 1 DOSE TOP UD PRN for Pain - Hold the following medications the morning of surgery: Furosemide (Lasix), 20 MG PO QAM Docusate Sodium (Colace), 1 CAP PO BID Ferrous Sulfate (Kp Ferrous Sulfate), 1 TAB PO BID Multivitamin (Multivitamin), 1 TAB PO QAM Potassium Chloride Microencaps (Potassium Chloride Er), 20 MEQ PO QAM Magnesium Oxide (Mag-Ox), 400 MG PO BID - Take the following medications the morning of surgery with a sip of water OTHERWISE NOTHING TO EAT OR DRINK AFTER MIDNIGHT: Albuterol Hfa (Ventolin Hfa), 2 PUFFS PO UD PRN for SOB/Wheezing Albuterol Sulf (Proventil 0.083% 2.5MG/3ML), 1 DOSE NEB UD PRN for SOB/Wheezing Topiramate (Topiramate), 100 MG PO BID Lamotrigine (Lamictal), 100 MG PO BID Lamotrigine (Lamictal), 200 MG PO BID Ipratropium [place] (Atrovent Hfa), 2 PUFFS INH QID PRN for SOB/Wheezing Fluticasone Propionate (Nasal) (Flonase Allergy Relief), 2 SPRAY [place]ORIS QAM Levetiractam (Levetiracetam), 500 MG PO BID Lorazepam (Ativan), 0.5 MG PO BID Pantoprazole Sodium (Protonix), 40 MG PO BID Metoclopramide Hcl (Metoclopramide Hcl), 5 MG PO BID Sulfa/Trimethoprim (Bactrim Ds 800MG/160MG), 1 TAB PO QAM - Take the following medications as scheduled the night before surgery: Albuterol Hfa (Ventolin Hfa), 2 PUFFS PO UD PRN for SOB/Wheezing Albuterol Sulf (Proventil 0.083% 2.5MG/3ML), 1 DOSE NEB UD PRN for SOB/Wheezing Topiramate (Topiramate), 100 MG PO BID Docusate Sodium (Colace), 1 CAP PO BID Ferrous Sulfate (Kp Ferrous Sulfate), 1 TAB PO BID Lamotrigine (Lamictal), 100 MG PO BID Lamotrigine (Lamictal), 200 MG PO BID Ipratropium [place] (Atrovent Hfa), 2 PUFFS INH QID PRN for SOB/Wheezing Levetiractam (Levetiracetam), 500 MG PO BID Lorazepam (Ativan), 0.5 MG PO BID Pantoprazole Sodium (Protonix), 40 MG PO BID Metoclopramide Hcl (Metoclopramide Hcl), 5 MG PO BID Magnesium Oxide (Mag-Ox), 400 MG PO BID If you have any questions please call us at [phone] or [phone] or [phone]
--- NOTE | 2017-05-29 16:06 | History and Physical ---
History & Physical Date May 29, 2017. Chief Complaint Left knee pain History of Present Illness The patient is a 67 year old female with complaints of left knee pain that have failed conservative treatment, such as PT, rest, ice/heat, injections, and avoidance of offending behavior. Pain is present with rest and activity. Denies recent injuries or falls. Affects her life on a daily basis. Denies any numbness or tingling in the lower extremity. No new injuries or falls. 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 (16) Fall (17) Fracture of rib with routine healing (18) Gastroesophageal reflux disease (19) Gout (20) Hip pain (21) History of recent fall (22) Hyperlipidemia (23) Migraine (24) Neck pain (25) Rectal bleeding (26) renal insufficiency (27) Rib fractures (28) Seizure (29) Spinal stenosis (30) Sprain of knee (31) Status post fall (32) Unexplained night sweats Surgical Problems: (1) back surgery (2) Cholecystectomy (3) Hysterectomy (4) neck surgery Additional History Hepatic Disease: No Endocrine Disorder: No Kidney Disease: Yes Hypertension: Yes Heart Disease: No Bleeding Tendencies: No Infectious Diseases: No Allergies Coded Allergies: NO KNOWN DRUG ALLERGIES (Verified Allergy, Unknown, NKDA, 05/29/17) Adhesives (Verified Adverse Reaction, Unknown, ITCHY, 05/29/17) Home Medications Scheduled Apixaban (Eliquis), 5 MG PO BID Docusate Sodium (Colace), 1 CAP PO BID Ferrous Sulfate (Kp Ferrous Sulfate), 1 TAB PO BID Fluticasone Propionate (Nasal) (Flonase Allergy Relief), 2 SPRAY MORIS QAM Furosemide (Lasix), 20 MG PO QAM Lamotrigine (Lamictal), 100 MG PO BID Lamotrigine (Lamictal), 200 MG PO BID Levetiractam (Levetiracetam), 500 MG PO BID Lorazepam (Ativan), 0.5 MG PO BID Magnesium Oxide (Mag-Ox), 400 MG PO BID Metoclopramide Hcl (Metoclopramide Hcl), 5 MG PO BID Multivitamin (Multivitamin), 1 TAB PO QAM Pantoprazole Sodium (Protonix), 40 MG PO BID Potassium Chloride Microencaps (Potassium Chloride Er), 20 MEQ PO QAM Sulfa/Trimethoprim (Bactrim Ds 800MG/160MG), 1 TAB PO QAM Topiramate (Topiramate), 100 MG PO BID Scheduled PRN Albuterol Hfa (Ventolin Hfa), 2 PUFFS PO UD PRN for SOB/Wheezing Albuterol Sulf (Proventil 0.083% 2.5MG/3ML), 1 DOSE NEB UD PRN for SOB/Wheezing Ipratropium [place] (Atrovent Hfa), 2 PUFFS INH QID PRN for SOB/Wheezing [Voltaren Gel], 1 DOSE TOP UD PRN for Pain Physical Examination Skin: warm/dry, no rash Eyes: normal inspection, EOMI, sclerae normal ENT: normal ENT inspection, pharynx normal Head: normocephalic, atraumatic Neck: supple, no adenopathy, trachea midline Respiratory/Chest: lungs clear, normal breath sounds, no respiratory distress Cardiovascular: regular rate, rhythm, + systolic murmur Abdomen / GI: normal bowel sounds, non tender Extremities: + pertinent finding (ROM: 0-090 degrees with pain at endpoints. Tenderness noted along the medial and lateral joint lines. Ligamentously stable. Extensor mechanism intact. Calves supple/non-tender. Pitting edema appreciated in the lower extremities bilaterally ) Neurologic/Psych: no motor/sensory deficits, alert, oriented x 3 Addiitonal Comments: Left knee Xrays: Advanced periarticular osteophytosis, joint space narrowing, sclerotic bone change, no evidence of fractures. Diagnosis Left knee osteoarthritis Plan of Treatment Andriy will undergo a left total knee arthroplasty by Dr. Kurt Figueroa MD from [facility] on 06/19/17 at the [facility]. Andriy will have her PAT appointment and testing completed at the [facility] at 2:45pm on 05/29/17 EKG, CBC with diff, type and screen, Lytes, BUN/Cr, chest xray, PT/INR, Urinalysis. The patient will need pre-operative clearance from her PCP Dr. Escoto and Ad Writer Dr. Ricks to determine when to discontinue Eliquis and if bridging is warranted. The patient has a walker to use post-operatively and is requesting discharge home with home health. Medications upon discharge will be prescribed, Percocet 5/325 and Lovenox 30mg BID x 3 weeks after surgery. Andriy will follow-up with Dr. Figueroa at [facility] on at 2:45pm for staple removal. Any other questions please notify our office at [phone], thank you.
[2017-05-29 16:44] LABS: BUN/CREATININE RATIO 19.2 (10-20); CALCIUM 8.8 mg/dl (8.5-10.1); CREATININE 1.2 mg/dl (0.60-1.20); POTASSIUM 3.5 mmol/L (3.5-5.1)
[2017-05-29 16:58] LABS: BASO % 0.7 %; BASO ABS # 0.05 K/uL (0-0.2); COMPLETE YES; EOS % 2.9 %; HEMATOCRIT 37.3 % (37-47); IG% 0.1 %; LYMPH % 22.4 %; LYMPH ABS # 1.65 K/uL (1.2-3.4); MEAN CELL VOLUME 86.5 fL (80-100); MEAN CORPUSCULAR HEMOGLOBIN 27.8 pg (25-34); MEAN CORPUSCULAR HGB CONC 32.2 g/dl (32-36); MEAN PLATELET VOLUME 10.9 fL (7.4-10.4); MONO % 6.4 %; NEUT % 67.5 %; PLATELET COUNT 209 K/uL (130-400); RED BLOOD COUNT 4.31 M/uL (4.2-5.4); WHITE BLOOD COUNT 7.35 K/uL (4.8-10.8)
[2017-05-29 17:03] LABS: MANUAL MICROSCOPIC REQUIRED? NO; REVIEW REQ? NO; URINE APPEARANCE CLEAR (CLEAR); URINE BILIRUBIN NEG (NEG); URINE COLOR YELLOW; URINE NITRITE NEG (NEG); URINE SPECIFIC GRAVITY 1.022 (1.000-1.030); UROBILINOGEN NEG (NEG)
[2017-05-29 17:06] LABS: PARTIAL THROMBOPLASTIN RATIO 1.2; PROTHROMBIN TIME (PATIENT) 11.1 SECONDS (9.0-12.0)
[~2017-06-19] VITALS: Ht 170.2 cm; Wt 122.2 kg
[2017-06-19] VITALS (8 sets, daily range): BP systolic 94–162; BP diastolic 56–74; PULSE 62–88; TEMP 36.3–36.7; O2SAT 97–100; Ht 170.2 cm; Wt 122.2 kg
[~2017-06-19 05:03] MED LIST changes: -ASCA500 PO; -ASCO500T16 PO; -CEPH500C PO; -ESTCR PV; -FENTANYL CITRATE INJ 50 MCG/1 ML 2 ML VIAL ONE; -HYDR-4079 PO; -IPRA0.03 NAE; -LIDOCAINE HCL 2% 2 ML VIAL (20MG/ML) ONE; -MULT-1042 PO; -OXYC-57 PO; -OXYC1TAB3 PO; -PROPOFOL IV EMULSION 10 MG/ML 20 ML VIAL IV ONE; -SENN-65 PO; -SODIUM CHLORIDE 0.9% 500ML 500 ML IV ONE; -TPRSR/25 PO; -[UNRECOGNIZED DRUG - CODE] PO
[2017-06-19] MEDS ORDERED: ROPIVACAINE 5MG/ML 30 ML 150 MG, BUPIVACAINE/EPINEPHR 0.5% MPF 30 ML, KETOROLAC TROMETH... INFIL SCH ×7 (06:00)
[2017-06-19] MEDS ORDERED: LACTATED RINGER'S 1000ML 1,000 ML IV SCH ×2 (06:00)
[2017-06-19] MEDS ORDERED: CEFAZOLIN 3000 MG/65 ML D5W 65 ML IV SCH (06:00)
[2017-06-19] MEDS ORDERED: TRANEXAMIC ACID INJ 1,000 MG in SODIUM CHLORIDE 0.9% 100ML 100 ML IV SCH ×2 (06:00→16:30)
[2017-06-19] MEDS ORDERED: BUPIVACAINE 0.5 % 5 MG/1 ML PF 10ML VIAL ONE (06:16)
[2017-06-19] MEDS ORDERED: BUPIVACAINE 0.25% 30 ML VIAL ONE (06:16)
[2017-06-19] MEDS ORDERED: MIDAZOLAM HCL 1 MG/ML 2ML VIAL ONE (06:30)
[2017-06-19] MEDS ORDERED: ATROPINE SULFATE 0.1 MG/ML 5ML SYR IV PRN (06:30)
[2017-06-19] MEDS ORDERED: FENTANYL CITRATE INJ 50 MCG/1 ML 2 ML VIAL ONE ×3 (06:30→07:45)
[2017-06-19] MEDS ORDERED: ONDANSETRON INJ 2 MG/ML 2 ML VIAL IV PRN ×2 (06:30→10:45)
[2017-06-19] MEDS ORDERED: HYDROmorphone INJ 1 MG/ML SYR IV PRN (06:30)
[2017-06-19] MEDS ORDERED: EpHEDrine SULFATE INJ 50 MG/ML AMP IV PRN (06:30)
[2017-06-19] MEDS ORDERED: ORTHO JOINT ANESTHETIC ONE (06:31)
[2017-06-19] MEDS ORDERED: POVIDONE-IODINE OP SOLN 30 ML BTL ONE (06:31)
--- NOTE | 2017-06-19 06:42 | History & Physical Bridge Note ---
H&P Re-Evaluation Bridge Note: I have examined the patient, reviewed the History & Physical and in the interval since the performance of the History & Physical I have noted the following changes of clinical significance: No changes noted
[2017-06-19] MEDS ORDERED: LIDOCAINE HCL 2% 2 ML VIAL (20MG/ML) ONE (07:24)
[2017-06-19] MEDS ORDERED: ROCURONIUM BROMIDE 10 MG/ML 5 ML VIAL ONE (07:24)
[2017-06-19] MEDS ORDERED: ONDANSETRON INJ 2 MG/ML 2 ML VIAL ONE (07:24)
[2017-06-19] MEDS ORDERED: PROPOFOL IV EMULSION 10 MG/ML 20 ML VIAL IV ONE (07:24)
[2017-06-19] MEDS ORDERED: DEXAMETHASONE SOD INJ 4 MG/ML VIAL ONE (07:24)
[2017-06-19] MEDS ORDERED: ACETAMINOPHEN 1000 MG/100 ML IV IV ONE (07:28)
[2017-06-19] MEDS ORDERED: EpHEDrine SULFATE 50MG/5ML SYR ONE (07:45)
[2017-06-19] MEDS ORDERED: PHENYLEPHRINE 100MCG/ML 5ML SYR ONE (07:45)
[2017-06-19] MEDS ORDERED: FLUMAZENIL 0.1 MG/1 ML 10 ML VIAL IV ONE (07:45)
--- NOTE | 2017-06-19 10:30 | [facility] Post Operative Brief Note ---
Immediate Operative Summary Operative Date Jun 19, 2017. Pre-Operative Diagnosis Left Knee Osteoarthritis Post-Operative Diagnosis Left Knee Osteoarthritis Procedure(s) Performed Left Total Knee Arthroplasty, Cemented Surgeon Dr. Figueroa Sap Bi Architect Surgeon(s) He Menjivar PA-C (no fellow avail) Estimated Blood Loss 120 mL Findings End-stage left knee DJD, synovitis, loose bodies. Fluids (cc crystalloids) 1100 Specimens A: Left Knee Bone and Tissue Drains n/a Anesthesia GEt + Adductor block Complication(s) None Disposition Recovery Room / PACU (Stable)
--- NOTE | 2017-06-19 10:30 | [facility] Operative Report ---
Operative Report Operative Date Jun 19, 2017. Pre-Operative Diagnosis Left Knee Osteoarthritis Post-Operative Diagnosis Left Knee Osteoarthritis Procedure(s) Performed Left Total Knee Arthroplasty, Cemented Surgeon Dr. Figueroa Nephrology Social Worker Surgeon(s) He Menjivar PA-C (no fellow avail) Estimated Blood Loss 120 mL Findings Examined Under Anesthesia left knee: ROM -- There was 5 degrees to 95 degrees of flexion Ligamentous examination -- revealed stable Jamie, posterior drawer, varus and valgus stress at 0 and 30 degrees. [place] Type IV changes of patellofemoral compartment as well as the medial compartment. There was diffuse type II and 3 changes in the lateral compartment with a focal area posteriorly of type IV changes on the tibial plateau. There was significant synovitis as well as multiple small loose bodies. Fluids 1100 Specimens A: Left Knee Bone and Tissue Drains n/a Anesthesia GEt + Adductor block Complication(s) None Disposition Recovery Room / PACU (Stable) Indications This is a 67-year-old female who has clinical and radiographic findings consistent with osteoarthritis of the a left knee. I recommended that a left total knee replacement be performed. The patient understands the risks of surgery, which include but not limited to: bleeding, infection, re-operation, damage to nerves and arteries, continued knee pain, knee stiffness, DVT, and . The patient understands all of these instructions and explanations, all of his questions have been satisfactorily addressed and the patient has elected to proceed. Informed consent was signed. Description of Procedure IMPLANTS: 1. Femur: Triathlon #5 left PS. 2. Tibia: Triathlon #4 primary. 3. Insert: Triathlon #4 x9 mm PS X3 poly. 4. Patella: Triathlon A29 x 9 mm X3 poly. PROCEDURE: The patient was taken to the Operating Room and placed in the supine position after general anesthetic and adductor nerve block was administered. My initials and a multidisciplinary time-out were used to identify the left leg as the correct operative limb. A tourniquet was placed high in the thigh. Prior to the incision, 3 grams of intravenous Ancef were given. The left leg was then prepped and draped in a standard sterile fashion. An Esmarch was used to exsanguinate the leg and the tourniquet was inflated to 250 mmHg. The planned mid-line 15 cm incision was created exposing the extensor mechanism. The medial parapatellar arthrotomy was made and the patella was everted. A synovectomy was performed. Next the patella was prepared by reaming from 21 mm down to 11mm. A29 button was found to fit best. The peg holes were made in the standard fashion. The femur was addressed next and the guide mariya was placed intramedullary. The initial cutting block was placed with 5 degrees of valgus and removing 10 mm for the anterior cut. The cut was made and the 4-in-1 cutting block for a size 5 femur was placed. These cuts and the cuts to place the box were made in the standard fashion. A bone plug was placed in the femur. Our attention was then drawn to the tibia cut with the external cutting guide, taking 4mm from the lateral, low side. There was sufficient extension and flexion gap to fit a 9mm spacer. A #4 Tibial baseplate fit well. A trial with a 9 mm spacer showed excellent stability in both flexion and extension, with good ligament balance. Range of motion of 0-110 degrees. The tibial baseplate was pinned and the final preparation for the keel was made. Excessive osteophytes anterior and medial were removed with a rongeur. All the trial components were tested with good stability and thumbs free tracking of the patella. All components were removed. The tourniquet was deflated. Hemostasis was obtained. 94 ml of [place] joint injection was injected into the soft tissues and periosteum. After a 15 minute break, the limb was exsanguinated again and the tourniquet was re-inflated. All surfaces were copiously irrigated prior to placement of the components. The femur and Tibial baseplate were placed using the first batch of cement and a 9 mm trial was placed while the cement cured. The patella was placed using the second batch. Again a 9 mm trial poly was placed and the range of motion and stability were unchanged. Once the cement had cured, the 9 mm X3 poly was placed. The extensor mechanism was closed with 1 and 0 Vicryl with the knee bent approximately 60 degrees in a standard fashion. The peritenon and deep fascia was closed with 2-0 Vicryl. The subcutaneous layer was closed with 3-0 Vicryl. The skin was closed with roselyn. The limb was cleaned and dried. Xeroform was placed over top followed by 4x4's, ABDs, sterile Webril, and a foot to thigh Bear bandage. The patient was then transferred to the Recovery Room in stable condition. The sponge and needle counts were correct. POST-OP INSTRUCTIONS: The patient will be WBAT. The patient will be admitted to the hospital. The patient will use the knee immobilizer when ambulating and standing until good quad control is achieved. Labs will be obtained during her stay. DVT prophylaxis will included returning to Eloquist, , TEDs, and mechanical foot pumps. I attest to the content of the Intraoperative Record and any orders documented therein. Any exceptions are noted below.
[2017-06-19] MEDS: FENTANYL CITRATE INJ 50 MCG/1 ML 2 ML VIAL IV PRN ×4 (10:39→10:54)
[2017-06-19] MEDS ORDERED: METOCLOPRAMIDE HCL INJ 5 MG/ML 2 ML VIAL IV PRN (10:45)
[2017-06-19] MEDS ORDERED: ALUMINUM/MAGNESIUM/SIMETH (MAALOX MAX) 30 ML UDC PO PRN (10:45)
[2017-06-19] MEDS ORDERED: BISACODYL 10 MG SUPP PR PRN (10:45)
[2017-06-19] MEDS ORDERED: MAGNESIUM HYDROXIDE SUSP 30 ML UDC PO PRN (10:45)
[2017-06-19] MEDS ORDERED: SOD PHOSPHATE/SOD BIPHOSPHATE ENEMA 132 ML BTL PR PRN (10:45)
[2017-06-19] MEDS ORDERED: IPRATROPIUM BROMIDE HFA INHALER INH PRN (11:00)
--- NOTE | 2017-06-19 11:08 | [facility] Operative Report ---
Operative Report Operative Date Jun 19, 2017. Pre-Operative Diagnosis Left Knee Osteoarthritis Post-Operative Diagnosis Left Knee Osteoarthritis Procedure(s) Performed Left Total Knee Arthroplasty, Cemented Surgeon Dr. Figueroa Director Loan Surgeon(s) He Menjivar PA-C (no fellow avail) Estimated Blood Loss 120 mL Findings same Fluids 1100 Specimens A: Left Knee Bone and Tissue Drains n/a Anesthesia GEt + Adductor block Complication(s) None Disposition Recovery Room / PACU (Stable) Indications continued left knee pain, failed conservative treatment, surgery recommended, consents signed Description of Procedure taken to the OR, prepped and draped, I was present the entire case, please see Dr. Figueroa's op note for further detail, thank you I attest to the content of the Intraoperative Record and any orders documented therein. Any exceptions are noted below.
--- NOTE | 2017-06-19 11:17 | Anesthesiology Progress Note ---
Anesthesia Post Op Note Date & Time Jun 19, 2017 at 11:17 Vital Signs Pain Intensity: 2 Vital Signs Past 12 Hours Date Time Temp Pulse Resp B/P (MAP) Pulse Ox O2 Delivery O2 Flow Rate FiO2 06/19/17 11:05 36.9 94 18 132/75 99 Mask 3 06/19/17 10:55 81 18 93/49 95 Oxymask 10 06/19/17 10:45 36.6 104 18 104/75 96 Oxymask 10 06/19/17 10:35 110 18 99/57 97 Oxymask 10 06/19/17 10:32 36.6 111 18 120/51 99 Oxymask 10 06/19/17 05:53 36.5 75 18 162/65 99 Room Air Notes Mental Status: alert / awake / arousable, participated in evaluation Pt Amnestic to Procedure: Yes Nausea / Vomiting: adequately controlled Pain: adequately controlled Airway Patency, RR, SpO2: stable & adequate BP & HR: stable & adequate Hydration State: stable & adequate Anesthetic Complications: no major complications apparent
--- NOTE | 2017-06-19 11:46 | DIAGNOSTIC IMAGING REPORT ---
LEFT KNEE 1 OR 2 VIEWS ROUTINE CLINICAL HISTORY: AP/LATERAL IN PACU LEFT KNEE joint replacement COMPARISON: None. DISCUSSION: Total left knee arthroplasty. Good contact between prosthetic and underlying bone. Expected soft tissue postoperative change. IMPRESSION: Anatomic alignment status post total left knee arthroplasty The above report was generated using voice recognition software. It may contain grammatical, syntax or spelling errors. Electronically signed by: Liu Collins M.D. 06/19/2017 11:44 AM Dictated Date/Time: 06/19/2017 11:44 AM
[2017-06-19] MEDS: D5W AND 1/2NSS + 20MEQ KCL 1,000 ML IV SCH ×2 (13:36→23:46)
[2017-06-19] MEDS: CEFAZOLIN IV 2,000 MG in DEXTROSE 5% 50ML 50 ML IV SCH ×2 (13:36→21:41)
[2017-06-19] MEDS: FERROUS GLUCONATE 324 MG TAB PO SCH ×2 (13:45→17:58)
[2017-06-19] MEDS: OXYCODONE HCL IR 5 MG TAB (IMMEDIATE RELEASE) PO PRN ×2 (13:46→22:26)
[2017-06-19] MEDS: ACETAMINOPHEN 500 MG TAB PO SCH ×2 (13:46→21:41)
[2017-06-19] MEDS: LEVETIRACETAM 500 MG TAB PO SCH ×2 (13:48→21:42)
[2017-06-19] MEDS ORDERED: NURSING VERBAL MED ORDER ONE (14:00)
--- NOTE | 2017-06-19 14:09 | Medical Consult ---
Consultation Date of Consultation: Jun 19, 2017. Attending Physician: Kurt Figueroa MD Reason for Consultation: Post operative medical management History of Present Illness The patient is a 67-year-old female who underwent a left total knee arthroplasty by Dr. Figueroa earlier in the day today. Seen postoperatively, her main concern is that of getting her morning seizure medications. She has the expected left knee pain after surgery. She also complains of some minor low back discomfort. She denies chest pain, palpitations, shortness of breath, fevers, chills, nausea, vomiting, diarrhea, lightheadedness, dizziness, headache , rash. Past Medical/Surgical History Medical Problems: (1) Atrial flutter Status: Acute (2) Back strain Status: Acute (3) Bloody stool Status: Acute (4) Diffuse pain Status: Acute (5) Epigastric abdominal pain Status: Acute (6) Forearm abrasion Status: Acute (7) Headache Status: Acute (8) Headache Status: Acute (9) Headache above the eye region Status: Acute (10) Hypertension Status: Acute (11) Left against medical advice Status: Acute (12) Left sided chest pain Status: Acute (13) Left sided chest pain Status: Acute (14) Lower abdominal pain Status: Acute (15) Malaise Status: Acute (16) Sore throat Status: Acute (17) Spasm of back muscles Status: Acute (18) Substernal chest pain Status: Acute Family History Cancer FHx: neurologic disorder Heart disease Hypertension Kidney disease Other kidney diseases Seizures Social History Smoking Status: Never Smoker Smokeless Tobacco Use: No Alcohol Use: none Drug Use: none Marital Status: single Housing Status: lives alone Occupation Status: retired Allergies Coded Allergies: Adhesives (Verified Adverse Reaction, Unknown, ITCHY, 06/19/17) Current Inpatient Medications Current Inpatient Medications Medications (Trade) Dose Ordered Sig/Galileo Route Start Time Stop Time Status Last Admin Dose Admin Potassium Chloride/Dextrose/ Sod Cl 1,000 ml @ 100 mls/hr Q10H IV 06/19/17 13:45 06/20/17 10:38 06/19/17 13:36 100 MLS/HR Cefazolin Sodium 2000 mg/Dextrose 60 ml @ 100 mls/hr Q8H IV 06/19/17 14:00 06/19/17 22:35 06/19/17 13:36 100 MLS/HR Oxycodone HCl (Roxicodone Immediate Rel Tab) 1 TABLET FOR PAIN RATING... Q4H PRN PO 06/19/17 10:45 07/03/17 10:44 06/19/17 13:46 10 MG Morphine Sulfate (MoRPHine SULFATE INJ) 2 mg Q2HWA PRN IV 06/19/17 10:45 07/03/17 10:44 Acetaminophen (Tylenol Tab) 1,000 mg Q8H PO 06/19/17 14:00 07/19/17 10:44 06/19/17 13:46 1,000 MG Magnesium Hydroxide (Milk Of Magnesia Susp) 30 ml Q6H PRN PO 06/19/17 10:45 07/19/17 10:44 Bisacodyl (Dulcolax Supp) 10 mg DAILY PRN MT 06/19/17 10:45 07/19/17 10:44 Sodium Biphosphate/ Sodium Phosphate (Fleet Enema) 132 ml DAILY PRN MT 06/19/17 10:45 07/19/17 10:44 Senna (Senokot Tab) 17.2 mg HS PO 06/19/17 21:00 07/19/17 20:59 Diphenhydramine HCl (Benadryl Cap) 25 mg Q8H PRN PO 06/19/17 10:45 07/19/17 10:44 Al Hydrox/Mg Hydrox/Simethicone (Maalox Max Susp) 15 ml Q4H PRN PO 06/19/17 10:45 07/19/17 10:44 Multivitamins (Multivitamin Tab) 1 tab QAM PO 06/20/17 09:00 07/20/17 08:59 Ondansetron HCl (Zofran Inj) 4 mg Q6H PRN IV 06/19/17 10:45 07/19/17 10:44 Metoclopramide HCl (Reglan Inj) 10 mg Q6H PRN IV 06/19/17 10:45 07/19/17 10:44 Ferrous Gluconate (Ferrous Gluconate Tab) 324 mg TIDM PO 06/19/17 12:30 07/19/17 12:29 06/19/17 13:45 324 MG Tranexamic Acid 1000 mg/Sodium Chloride 110 ml @ 660 mls/hr Q6H IV 06/19/17 16:30 06/19/17 16:39 Ascorbic Acid (Vitamin C Tab) 500 mg QAM PO 06/20/17 09:00 07/20/17 08:59 Miscellaneous Information (Order Awaiting Action) 1 ea QS N/A 06/19/17 16:00 07/19/17 15:59 Docusate Sodium (coLACE CAP) 100 mg BID PO 06/19/17 21:00 07/19/17 20:59 Furosemide (Lasix Tab) 20 mg QAM PO 06/20/17 09:00 07/20/17 08:59 Ipratropium [place] (Atrovent Hfa Inhaler) 2 puffs QID PRN INH 06/19/17 11:00 07/19/17 10:59 Lamotrigine (Lamictal Tab) 100 mg BID PO 06/19/17 21:00 07/19/17 20:59 Lamotrigine (Lamictal Tab) 200 mg BID PO 06/19/17 21:00 07/19/17 20:59 Levetiracetam (Keppra Tab) 500 mg BID PO 06/19/17 21:00 07/19/17 20:59 06/19/17 13:48 500 MG Lorazepam (Ativan Tab) 0.5 mg BID PO 06/19/17 21:00 07/19/17 20:59 Magnesium Oxide (Mag-Ox Tab) 400 mg BID PO 06/19/17 21:00 07/19/17 20:59 Metoclopramide HCl (Reglan Tab) 5 mg BID PO 06/19/17 21:00 07/19/17 20:59 Pantoprazole Sodium (Protonix Tab) 40 mg BID PO 06/19/17 21:00 07/19/17 20:59 Potassium Chloride (Klor-Con Tab) 20 meq QAM PO 06/20/17 09:00 07/20/17 08:59 Topiramate (Topamax Tab) 100 mg BID PO 06/19/17 21:00 07/19/17 20:59 Non-Formulary Medication (Apixaban (Eliquis)) 5 mg BID PO 06/19/17 21:00 07/19/17 20:59 UNV Trimethoprim/ Sulfamethoxazole (Septra Ds 800/ 160MG Tab) 1 tab QAM PO 06/20/17 09:00 06/30/17 08:59 Miscellaneous Information (Nursing Verbal Med Order) 1 ea ONE ONCE N/A 06/19/17 14:00 06/19/17 14:01 UNV Review of Systems The patient denies chest pain, palpitations, shortness of breath, cough, vision change, hearing change, sore throat, fevers, chills, sweats, fatigue, nausea, vomiting, abdominal pain, pelvic pain, blood in urine or stool, dysuria, urinary frequency or urgency, lightheadedness, dizziness, headache, memory loss , rash, abnormal bruising or bleeding, generalized weakness, numbness or tingling in arms, night sweats. The review of systems is otherwise negative other than for that already noted above, and at least 10 systems have been reviewed. Physical Exam Date Time Temp Pulse Resp B/P (MAP) Pulse Ox O2 Delivery O2 Flow Rate FiO2 06/19/17 13:20 36.5 84 18 128/71 (90) 100 Nasal Cannula 3.0 06/19/17 12:32 36.5 73 17 118/74 (89) 100 Room Air 3.0 06/19/17 12:31 100 Nasal Cannula 3.0 06/19/17 12:00 100 Nasal Cannula 3.0 06/19/17 12:00 36.4 73 16 102/56 (71) 100 Nasal Cannula 3.0 06/19/17 11:35 77 18 95/72 100 Mask 3 06/19/17 11:20 36.9 84 18 112/69 98 Mask 3 06/19/17 11:05 36.9 94 18 132/75 99 Mask 3 06/19/17 10:55 81 18 93/49 95 Oxymask 10 06/19/17 10:45 36.6 104 18 104/75 96 Oxymask 10 06/19/17 10:35 110 18 99/57 97 Oxymask 10 06/19/17 10:32 36.6 111 18 120/51 99 Oxymask 10 06/19/17 05:53 36.5 75 18 162/65 99 Room Air The patient is awake, well-developed and adequately nourished, alert and oriented 3, normocephalic and atraumatic, lying in bed and in no acute distress. HEENT--PERRL, EOMI, mucous membranes and oropharynx dry. Neck--supple, no JVD or bruits, thyroid normal, trachea midline, no adenopathy. Heart--irregularly irregular, no murmurs, rubs or gallops. Lungs--clear bilaterally with good air movement, no respiratory distress, no accessory muscle use. Abdomen--normal bowel sounds and soft, nontender and nondistended, no hernias or masses, no organomegaly, and obese. Extremities--no cyanosis, clubbing or edema. There are good distal pulses b/l. Left knee wrapped. Dermatologic--normal skin turgor, normal color, warm and dry, no abnormal lymph nodes, no rash. Neurologic--cranial nerves II through XII grossly intact, motor and sensory examination normal. Rheumatologic--deferred in post op setting. Psychiatric--normal affect. Assessment & Plan Status post left total knee arthroplasty--medically stable. Seizure disorder--patient did not get her morning dosages of Keppra 500 mg, lamotrigine 300 mg and topiramate 100 mg, all of which will be given now, and resume twice a day dosing tonight. Atrial fibrillation--resume Eliquis 5 mg by mouth twice a day at her earliest convenience. Continue Lasix 20 mg by mouth every morning, mag oxide 400 mg by mouth twice a day and potassium chloride 20 mEq by mouth every morning. GI/GERD--continue pantoprazole 40 mg by mouth twice a day, and metoclopramide 5 mg by mouth twice a day. Asthma--albuterol nebulizer 4 times a day when necessary and Ventolin HFA 2 puffs daily when necessary. Anxiety--continue lorazepam 0.5 mg by mouth twice a day. Allergic rhinitis--continue Flonase nasal spray 2 sprays each nostril every morning. Pain management--orthopedic team
[2017-06-19] MEDS ORDERED: LEVETIRACETAM 500 MG TAB PO ONE (14:15)
[2017-06-19] MEDS ORDERED: TOPIRAMATE 100 MG TAB PO ONE (14:15)
--- NOTE | 2017-06-19 14:31 | Medical Student: [facility] ---
Consultation Date of Consultation: Jun 19, 2017. Requesting Physician: Dr. Figueroa Attending Physician: Dr. Ferrer Reason for Consultation: post-op medical management History of Present Illness Mrs. Salmon is a 67yo female with a history of grand mal seizures on multiple anti-epileptics, afib on apixaban, renal insufficiency, gout and DJD who is s/p left TKA by Dr. Figueroa on 06/19/17. Following the procedure she reports feeling good with 5/10 pain. Her main concern at this time is getting her anti-seizure medications as she did not take her AM dose this morning in preparation for surgery. Patient is also asking if she can use her home lavender oil on her feet prior to PT/OT evaluation and therapy as it helps with her pain. Denies fever, chills, cp, palpitations, sob, n/v/d, headache, numbness, tingling , diarrhea, constipation, calf pain Past Medical/Surgical History Medical History: 1. Seizure disorder 2. Atrial fibrillation 3. Renal insufficiency 4. Gout 5. Degenerative joint disease Surgical History: 1. Hysterectomy 2. Cholecystectomy 3. Back surgery 4. Neck surgery Social History Smoking Status: Never Smoker History of Alcohol Use: No Drug Use: none Marital Status: single Housing Status: lives alone ([facility]) Occupation Status: retired Review of Systems Constitutional: No fever, No chills Eyes: No worsening of vision, No diplopia ENT: No sore throat, No trouble swallowing Respiratory: No cough, No wheezing, No shortness of breath Cardiac: No chest pain, No palpitations Abdomen: No pain, No nausea, No vomiting, No diarrhea, No constipation Musculoskeletal: No calf pain Female : No urinary frequency, No incontinence Neurologic: No paralysis, No numbness/tingling Allergies Coded Allergies: Adhesives (Verified Adverse Reaction, Unknown, ITCHY, 06/19/17) Medications Current Inpatient Medications Medications (Trade) Dose Ordered Sig/Galileo Route Start Time Stop Time Status Last Admin Dose Admin Potassium Chloride/Dextrose/ Sod Cl 1,000 ml @ 100 mls/hr Q10H IV 06/19/17 13:45 06/20/17 10:38 06/19/17 13:36 100 MLS/HR Cefazolin Sodium 2000 mg/Dextrose 60 ml @ 100 mls/hr Q8H IV 06/19/17 14:00 06/19/17 22:35 06/19/17 13:36 100 MLS/HR Oxycodone HCl (Roxicodone Immediate Rel Tab) 1 TABLET FOR PAIN RATING... Q4H PRN PO 06/19/17 10:45 07/03/17 10:44 06/19/17 13:46 10 MG Morphine Sulfate (MoRPHine SULFATE INJ) 2 mg Q2HWA PRN IV 06/19/17 10:45 07/03/17 10:44 Acetaminophen (Tylenol Tab) 1,000 mg Q8H PO 06/19/17 14:00 07/19/17 10:44 06/19/17 13:46 1,000 MG Magnesium Hydroxide (Milk Of Magnesia Susp) 30 ml Q6H PRN PO 06/19/17 10:45 07/19/17 10:44 Bisacodyl (Dulcolax Supp) 10 mg DAILY PRN [place] 06/19/17 10:45 07/19/17 10:44 Sodium Biphosphate/ Sodium Phosphate (Fleet Enema) 132 ml DAILY PRN [place] 06/19/17 10:45 07/19/17 10:44 Senna (Senokot Tab) 17.2 mg HS PO 06/19/17 21:00 07/19/17 20:59 Diphenhydramine HCl (Benadryl Cap) 25 mg Q8H PRN PO 06/19/17 10:45 07/19/17 10:44 Al Hydrox/Mg Hydrox/Simethicone (Maalox Max Susp) 15 ml Q4H PRN PO 06/19/17 10:45 07/19/17 10:44 Multivitamins (Multivitamin Tab) 1 tab QAM PO 06/20/17 09:00 07/20/17 08:59 Ondansetron HCl (Zofran Inj) 4 mg Q6H PRN IV 06/19/17 10:45 07/19/17 10:44 Metoclopramide HCl (Reglan Inj) 10 mg Q6H PRN IV 06/19/17 10:45 07/19/17 10:44 Ferrous Gluconate (Ferrous Gluconate Tab) 324 mg TIDM PO 06/19/17 12:30 07/19/17 12:29 06/19/17 13:45 324 MG Tranexamic Acid 1000 mg/Sodium Chloride 110 ml @ 660 mls/hr Q6H IV 06/19/17 16:30 06/19/17 16:39 Ascorbic Acid (Vitamin C Tab) 500 mg QAM PO 06/20/17 09:00 07/20/17 08:59 Miscellaneous Information (Order Awaiting Action) 1 ea QS N/A 06/19/17 16:00 07/19/17 15:59 Docusate Sodium (coLACE CAP) 100 mg BID PO 06/19/17 21:00 07/19/17 20:59 Furosemide (Lasix Tab) 20 mg QAM PO 06/20/17 09:00 07/20/17 08:59 Ipratropium [place] (Atrovent Hfa Inhaler) 2 puffs QID PRN INH 06/19/17 11:00 07/19/17 10:59 Lamotrigine (Lamictal Tab) 100 mg BID PO 06/19/17 21:00 07/19/17 20:59 Lamotrigine (Lamictal Tab) 200 mg BID PO 06/19/17 21:00 07/19/17 20:59 Levetiracetam (Keppra Tab) 500 mg BID PO 06/19/17 21:00 07/19/17 20:59 06/19/17 13:48 500 MG Lorazepam (Ativan Tab) 0.5 mg BID PO 06/19/17 21:00 07/19/17 20:59 Magnesium Oxide (Mag-Ox Tab) 400 mg BID PO 06/19/17 21:00 07/19/17 20:59 Metoclopramide HCl (Reglan Tab) 5 mg BID PO 06/19/17 21:00 07/19/17 20:59 Pantoprazole Sodium (Protonix Tab) 40 mg BID PO 06/19/17 21:00 07/19/17 20:59 Potassium Chloride (Klor-Con Tab) 20 meq QAM PO 06/20/17 09:00 07/20/17 08:59 Topiramate (Topamax Tab) 100 mg BID PO 06/19/17 21:00 07/19/17 20:59 Non-Formulary Medication (Apixaban (Eliquis)) 5 mg BID PO 06/19/17 21:00 07/19/17 20:59 UNV Trimethoprim/ Sulfamethoxazole (Septra Ds 800/ 160MG Tab) 1 tab QAM PO 06/20/17 09:00 06/30/17 08:59 Physical Exam Date Time Temp Pulse Resp B/P (MAP) Pulse Ox O2 Delivery O2 Flow Rate FiO2 06/19/17 13:20 36.5 84 18 128/71 (90) 100 Nasal Cannula 3.0 06/19/17 12:32 36.5 73 17 118/74 (89) 100 Room Air 3.0 06/19/17 12:31 100 Nasal Cannula 3.0 06/19/17 12:00 100 Nasal Cannula 3.0 06/19/17 12:00 36.4 73 16 102/56 (71) 100 Nasal Cannula 3.0 06/19/17 11:35 77 18 95/72 100 Mask 3 06/19/17 11:20 36.9 84 18 112/69 98 Mask 3 06/19/17 11:05 36.9 94 18 132/75 99 Mask 3 06/19/17 10:55 81 18 93/49 95 Oxymask 10 06/19/17 10:45 36.6 104 18 104/75 96 Oxymask 10 06/19/17 10:35 110 18 99/57 97 Oxymask 10 06/19/17 10:32 36.6 111 18 120/51 99 Oxymask 10 06/19/17 05:53 36.5 75 18 162/65 99 Room Air General: obese female, NAD, a&ox3, sitting comfortably in bed with LLE in immobilizer HEENT: PERRLA, EOMI, oropharynx nonerythematous, no thyromegaly Cardiac: RRR, 2/6 systolic ejection murmur, no carotid bruits appreciated Lungs: decreased breath sounds in all benítez, no wheezes, rales or ronchi Abd: soft and nontender, bowel sounds present Neuro: cranial nerves II-XII grossly intact, sensation grossly intact BUE and BLE, strength 5/5 RUE, LUE, RLE, LLE not tested MSK: normal tone and full ROM BUE, LLE in immobilizer Psych: mood is "good," affect is appropriate Assessment & Plan Assessment: This is a 67yo female with a history of grand mal seizures on multiple anti- epileptics, afib on apixaban, renal insufficiency, gout and DJD who is s/p left TKA by Dr. Figueroa on 06/19/17. She is medically stable at this time. Plan: Precautions: High fall risk, OOB WBAT with walker and assistance only. 1. DJD s/p left TKA Dr. Figueroa 06/19/17 -LLE immobilizer -TEDs BLE for chronic leg edema -neurochecks q2h -vitals q30min -Flores cath -I&Os qshift -encourage incentive spirometry -PT/OT evaluate and treat -2g Cefazolin IV 60ml @ 100mls/hr -Pantoprazole 40mg PO BID -PRN metoclopramide 5mg PO BID PRN nausea -AM CBC w/o diff -AM partial renal profile -AM PT/INR -call HO: new seizure activity, new SOB, new chest pain, new AMS, BP <100/60, HR >100 -OK to use lavender oil on her feet prior to AM therapies 2. Seizure disorder -Lamotrigine 100mg PO BID -Lamotrigine 200mg PO BID -Leviteracetam 500mg PO BID -Topiramate 100mg PO BID 3. Atrial fibrillation -Apixaban 5mg PO BID, OK per orthopaedic team 4. Renal insufficiency -Furosemide 20mg PO qAM -Potassium chloride 20meq qAM 5. Pain -PRN Tylenol 1000mg PO q8h PRN mild pain -PRN Oxycodone 5-10mg PO q4h PRN moderate pain 6. Anxiety -Lorazepam 0.5mg PO BID 7. FEN/GI -Docusate 100mg PO BID -Senna 1 tab PO daily 8. DVT prophylaxis -SCD on RLE -Apixaban 5mg PO BID to restart 06/19/17 PM 9. Disposition Location: home with home health assistance Date: 06/20/17 anticipated
[2017-06-19] MEDS: TOPIRAMATE 100 MG TAB PO SCH ×2 (14:35→21:46)
[2017-06-19] MEDS: MoRPHine SULFATE 2 MG/ML CARP IV PRN ×3 (14:40→23:51)
--- NOTE | 2017-06-19 16:49 | Progress Note ---
Orthopedic SOAP Note Subjective Date of Service: Jun 19, 2017. Post OP Day: 0 Reports: feeling well, pain controlled w PO medications, Denies: complaints, chest pain, SOB, nausea / vomiting, light headedness, calf pain, using [employer] Problem List Medical Problems: (1) Atrial flutter Status: Acute (2) Back strain Status: Acute (3) Bloody stool Status: Acute (4) Diffuse pain Status: Acute (5) Epigastric abdominal pain Status: Acute (6) Forearm abrasion Status: Acute (7) Headache Status: Acute (8) Headache Status: Acute (9) Headache above the eye region Status: Acute (10) Hypertension Status: Acute (11) Left against medical advice Status: Acute (12) Left sided chest pain Status: Acute (13) Left sided chest pain Status: Acute (14) Lower abdominal pain Status: Acute (15) Malaise Status: Acute (16) Sore throat Status: Acute (17) Spasm of back muscles Status: Acute (18) Substernal chest pain Status: Acute Objective calves soft nontender, N/V intact, capillary refill less than 2 sec., dressing C /D/I, A&O x3, toes mobile Date Time Temp Pulse Resp B/P (MAP) Pulse Ox O2 Delivery O2 Flow Rate FiO2 06/19/17 14:59 36.3 62 19 94/57 (69) 100 Nasal Cannula 2.0 06/19/17 14:09 36.4 82 18 100/64 (76) 99 Nasal Cannula 2.0 06/19/17 13:20 36.5 84 18 128/71 (90) 100 Nasal Cannula 3.0 06/19/17 12:32 36.5 73 17 118/74 (89) 100 Room Air 3.0 06/19/17 12:31 100 Nasal Cannula 3.0 06/19/17 12:00 100 Nasal Cannula 3.0 06/19/17 12:00 36.4 73 16 102/56 (71) 100 Nasal Cannula 3.0 06/19/17 11:35 77 18 95/72 100 Mask 3 06/19/17 11:20 36.9 84 18 112/69 98 Mask 3 06/19/17 11:05 36.9 94 18 132/75 99 Mask 3 06/19/17 10:55 81 18 93/49 95 Oxymask 10 06/19/17 10:45 36.6 104 18 104/75 96 Oxymask 10 06/19/17 10:35 110 18 99/57 97 Oxymask 10 06/19/17 10:32 36.6 111 18 120/51 99 Oxymask 10 06/19/17 05:53 36.5 75 18 162/65 99 Room Air Assessment s/p Left TKA Plan continue post op care pain control with medications, ice, elevate WBAT left LE and walker, immobilizer if available PT/OT ANA cortez in AM dressing change by nurses post op day 2 resume diet Lovenox tonight and tomorrow AM, then tomorrow PM resume Eliquis appreciate medicine input I, Dr. Figueroa, saw and examined the patient and agree with the above findings and plan of care.
[2017-06-19] MEDS ORDERED: NON-FORMULARY MEDICATION (Ferrous Sulfate (Kp Ferrous Sulfate) 1 TAB) PO SCH (21:00)
[2017-06-19] MEDS: LORAZEPAM 0.5 MG TAB PO SCH (21:40)
[2017-06-19] MEDS: METOCLOPRAMIDE HCL 5 MG TAB PO SCH (21:42)
[2017-06-19] MEDS: MAGNESIUM OXIDE 400 MG TAB PO SCH (21:42)
[2017-06-19] MEDS: PANTOprazole SOD 40 MG TAB PO SCH (21:42)
[2017-06-19] MEDS: SENNA 8.6 MG TAB PO SCH (21:43)
[2017-06-19] MEDS: DOCUSATE SODIUM 100 MG CAP PO SCH (21:45)
[2017-06-19] MEDS: ENOXAPARIN 30 MG/0.3 ML SYR SQ SCH (21:47)
[2017-06-20] MEDS: OXYCODONE HCL IR 5 MG TAB (IMMEDIATE RELEASE) PO PRN ×4 (02:38→20:45)
[2017-06-20 03:47] VITALS: BP 95/63; PULSE 74; TEMP 36.6; O2SAT 98
[2017-06-20] MEDS: ACETAMINOPHEN 500 MG TAB PO SCH ×3 (06:26→21:30)
[2017-06-20 07:02] LABS: HEMATOCRIT 29.5 % (37-47); MEAN CELL VOLUME 87.8 fL (80-100); MEAN CORPUSCULAR HEMOGLOBIN 28.9 pg (25-34); MEAN CORPUSCULAR HGB CONC 32.9 g/dl (32-36); MEAN PLATELET VOLUME 10.8 fL (7.4-10.4); PLATELET COUNT 138 K/uL (130-400); RED BLOOD COUNT 3.36 M/uL (4.2-5.4); WHITE BLOOD COUNT 9.68 K/uL (4.8-10.8)
[2017-06-20 07:07] LABS: INR 1.1 (0.9-1.1); PROTHROMBIN TIME (PATIENT) 11.6 SECONDS (9.0-12.0)
[2017-06-20 07:38] LABS: BUN/CREATININE RATIO 6.8 (10-20); CALCIUM 8.3 mg/dl (8.5-10.1); CREATININE 1.1 mg/dl (0.60-1.20); POTASSIUM 3.5 mmol/L (3.5-5.1)
[2017-06-20 07:41] VITALS: BP 103/68; PULSE 71; TEMP 36.5; O2SAT 98
--- NOTE | 2017-06-20 08:03 | Progress Note ---
Orthopedic SOAP Note Subjective Date of Service: Jun 20, 2017. Post OP Day: 1 Reports: feeling well, pain controlled w PO medications, Denies: complaints, chest pain, SOB, nausea / vomiting, light headedness, calf pain, using KITCHEN[employer] Problem List Medical Problems: (1) Atrial flutter Status: Acute (2) Back strain Status: Acute (3) Bloody stool Status: Acute (4) Diffuse pain Status: Acute (5) Epigastric abdominal pain Status: Acute (6) Forearm abrasion Status: Acute (7) Headache Status: Acute (8) Headache Status: Acute (9) Headache above the eye region Status: Acute (10) Hypertension Status: Acute (11) Left against medical advice Status: Acute (12) Left sided chest pain Status: Acute (13) Left sided chest pain Status: Acute (14) Lower abdominal pain Status: Acute (15) Malaise Status: Acute (16) Sore throat Status: Acute (17) Spasm of back muscles Status: Acute (18) Substernal chest pain Status: Acute Objective calves soft nontender, N/V intact, capillary refill less than 2 sec., dressing C /D/I, A&O x3, toes mobile resting comfortably upon entering the room was doing her PT protocol leg hangs with a bump under her foot, tolerating well and using ice attempts to perform a straight leg raise, does fairly well but not quite there yet Date Time Temp Pulse Resp B/P (MAP) Pulse Ox O2 Delivery O2 Flow Rate FiO2 06/20/17 07:41 36.5 71 18 103/68 (80) 98 Room Air 06/20/17 03:47 36.6 74 18 95/63 (74) 98 Room Air 06/20/17 00:00 Room Air 06/19/17 23:05 36.5 88 20 103/69 (80) 98 Room Air 06/19/17 20:00 36.7 84 20 115/68 (84) 97 Room Air 06/19/17 16:24 Nasal Cannula 3.0 06/19/17 14:59 36.3 62 19 94/57 (69) 100 Nasal Cannula 2.0 06/19/17 14:09 36.4 82 18 100/64 (76) 99 Nasal Cannula 2.0 06/19/17 13:20 36.5 84 18 128/71 (90) 100 Nasal Cannula 3.0 06/19/17 12:32 36.5 73 17 118/74 (89) 100 Room Air 3.0 06/19/17 12:31 100 Nasal Cannula 3.0 06/19/17 12:00 100 Nasal Cannula 3.0 06/19/17 12:00 36.4 73 16 102/56 (71) 100 Nasal Cannula 3.0 06/19/17 11:35 77 18 95/72 100 Mask 3 06/19/17 11:20 36.9 84 18 112/69 98 Mask 3 06/19/17 11:05 36.9 94 18 132/75 99 Mask 3 06/19/17 10:55 81 18 93/49 95 Oxymask 10 06/19/17 10:45 36.6 104 18 104/75 96 Oxymask 10 06/19/17 10:35 110 18 99/57 97 Oxymask 10 06/19/17 10:32 36.6 111 18 120/51 99 Oxymask 10 Laboratory Results 24 Hours: Test 06/20/17 06:52 Hematocrit 29.5 % Hemoglobin 9.7 g/dL Prothromb Time International Ratio 1.1 Prothrombin Time 11.6 SECONDS Assessment Post op day 1: s/p Left TKA Plan continue post op care pain control with medications, ice, elevate WBAT left LE and walker, immobilizer if available PT/OT DC cortez AM post op day 1 dressing change by nurses post op day 2 resume diet last dose of Lovenox this AM, resume Elilam zamorano appreciate medicine input will discuss findings further with Dr. Figueroa I, Dr. Figueroa, saw and examined the patient and discussed the management with my PA. I reviewed my PAs note and agree with the documented findings and the plan of care I developed. Appreciate medicine input. We will continue with mechanical soft diet until after breakfast and advance as tolerated due to the patient choking on a bagel this morning.
[2017-06-20] MEDS ORDERED: ALBUTEROL 0.083% NEBU SOLN 3 ML VIAL INH PRN (08:15)
[2017-06-20] MEDS ORDERED: PANTOprazole SOD 40 MG TAB PO SCH (09:00)
[2017-06-20] MEDS ORDERED: MULTIVITAMIN TAB PO SCH (09:00)
[2017-06-20] MEDS: LORAZEPAM 0.5 MG TAB PO SCH ×2 (09:16→20:44)
[2017-06-20] MEDS: METOCLOPRAMIDE HCL 5 MG TAB PO SCH ×2 (09:16→20:43)
[2017-06-20] MEDS: LEVETIRACETAM 500 MG TAB PO SCH ×2 (09:16→20:44)
[2017-06-20] MEDS: DOCUSATE SODIUM 100 MG CAP PO SCH ×2 (09:16→20:43)
[2017-06-20] MEDS: FUROSEMIDE 20 MG TAB PO SCH (09:17)
[2017-06-20] MEDS: MAGNESIUM OXIDE 400 MG TAB PO SCH ×2 (09:17→20:44)
[2017-06-20] MEDS: PANTOprazole SOD 40 MG TAB PO SCH ×2 (09:17→20:43)
[2017-06-20] MEDS: ASCORBIC ACID 500 MG TAB PO SCH ×2 (09:19→20:44)
[2017-06-20] MEDS: POTASSIUM CHLORIDE 20 MEQ TABCR PO SCH (09:19)
[2017-06-20] MEDS: SULFAMETHOXAZOLE/TRIMETHOPRIM DS 800/160MG TAB PO SCH (09:19)
[2017-06-20] MEDS: MULTIVITAMIN TAB PO SCH (09:21)
[2017-06-20] MEDS: FERROUS GLUCONATE 324 MG TAB PO SCH ×3 (09:23→17:46)
[2017-06-20] MEDS: FLUTICASONE PROPIONATE NA SPR 16 GM BTL NAE SCH (09:25)
[2017-06-20] MEDS: TOPIRAMATE 100 MG TAB PO SCH ×2 (09:27→20:43)
[2017-06-20] MEDS: ENOXAPARIN 30 MG/0.3 ML SYR SQ SCH (09:27)
[2017-06-20] MEDS: D5W AND 1/2NSS + 20MEQ KCL 1,000 ML IV SCH (09:28)
[2017-06-20] MEDS ORDERED: NURSING VERBAL MED ORDER ONE (09:30)
[2017-06-20] MEDS ORDERED: IPRATROPIUM BROMIDE HFA INHALER INH PRN (09:45)
[2017-06-20 10:06] VITALS: O2SAT 95
--- NOTE | 2017-06-20 10:21 | Anesthesiology Progress Note ---
Anesthesia Post Op Note Date & Time Jun 20, 2017 at 10:20 Vital Signs Pain Intensity: 7.0 Vital Signs Past 12 Hours Date Time Temp Pulse Resp B/P (MAP) Pulse Ox O2 Delivery O2 Flow Rate FiO2 06/20/17 10:06 95 Room Air 06/20/17 07:45 Room Air 06/20/17 07:41 36.5 71 18 103/68 (80) 98 Room Air 06/20/17 03:47 36.6 74 18 95/63 (74) 98 Room Air 06/20/17 00:00 Room Air 06/19/17 23:05 36.5 88 20 103/69 (80) 98 Room Air Notes Mental Status: alert / awake / arousable, participated in evaluation Pt Amnestic to Procedure: Yes Nausea / Vomiting: adequately controlled Pain: adequately controlled Airway Patency, RR, SpO2: stable & adequate BP & HR: stable & adequate Hydration State: stable & adequate Neuraxial Anesthesia: sensory block resolved Anesthetic Complications: no major complications apparent
[2017-06-20 11:32] VITALS: BP 102/66; PULSE 70; TEMP 36.4; O2SAT 99
--- NOTE | 2017-06-20 14:08 | Hospitalist Progress Note ---
Hospitalist Progress Note Date of Service Jun 20, 2017. (Dawna Beach ., PA-C) Subjective Pt evaluation today including: conversation w/ patient, conversation w/ family (- at bedside ), physical exam, chart review, lab review, review of studies, review of inpatient medication list Voiding: no voiding problems, no incontinence Patient states she is feeling well postop. +flatus. Eating and drinking OK. Choked on a bagel this AM. Diet changed to mechanical soft. Patient/family denies any difficulty with eating prior to procedure. Eating lunch while interviewing, no issues. +mild nausea- IV Zofran PRN available Pain is well controlled. Worked w/ PT- did well. Patient denies any fever, chills, sweats, lightheadedness, dizziness, vision changes, CP, palpitations, edema, SOB, wheezing, cough, abdominal pain, nausea, vomiting, diarrhea, urinary symptoms, melena, numbness/tingling, weakness, anxiety/depression, active bleeding, or new skin discoloration/changes. (Dawna Beach ., PA-C) Medications Current Inpatient Medications Medications (Trade) Dose Ordered Sig/Galileo Route Start Time Stop Time Status Last Admin Dose Admin Oxycodone HCl (Roxicodone Immediate Rel Tab) 1 TABLET FOR PAIN RATING... Q4H PRN PO 06/19/17 10:45 07/03/17 10:44 06/20/17 11:42 10 MG Morphine Sulfate (MoRPHine SULFATE INJ) 2 mg Q2HWA PRN IV 06/19/17 10:45 07/03/17 10:44 06/19/17 23:51 2 MG Acetaminophen (Tylenol Tab) 1,000 mg Q8H PO 06/19/17 14:00 07/19/17 10:44 06/20/17 12:54 1,000 MG Magnesium Hydroxide (Milk Of Magnesia Susp) 30 ml Q6H PRN PO 06/19/17 10:45 07/19/17 10:44 Bisacodyl (Dulcolax Supp) 10 mg DAILY PRN [place] 06/19/17 10:45 07/19/17 10:44 Sodium Biphosphate/ Sodium Phosphate (Fleet Enema) 132 ml DAILY PRN [place] 06/19/17 10:45 07/19/17 10:44 Senna (Senokot Tab) 17.2 mg HS PO 06/19/17 21:00 07/19/17 20:59 06/19/17 21:43 17.2 MG Diphenhydramine HCl (Benadryl Cap) 25 mg Q8H PRN PO 06/19/17 10:45 07/19/17 10:44 Al Hydrox/Mg Hydrox/Simethicone (Maalox Max Susp) 15 ml Q4H PRN PO 06/19/17 10:45 07/19/17 10:44 Multivitamins (Multivitamin Tab) 1 tab QAM PO 06/20/17 09:00 07/20/17 08:59 06/20/17 09:21 1 TAB Ondansetron HCl (Zofran Inj) 4 mg Q6H PRN IV 06/19/17 10:45 07/19/17 10:44 Metoclopramide HCl (Reglan Inj) 10 mg Q6H PRN IV 06/19/17 10:45 07/19/17 10:44 Ferrous Gluconate (Ferrous Gluconate Tab) 324 mg TIDM PO 06/19/17 12:30 07/19/17 12:29 06/20/17 12:53 324 MG Ascorbic Acid (Vitamin C Tab) 500 mg QAM PO 06/20/17 09:00 07/20/17 08:59 06/20/17 09:19 500 MG Miscellaneous Information (Order Awaiting Action) 1 ea QS N/A 06/19/17 16:00 07/19/17 15:59 Docusate Sodium (coLACE CAP) 100 mg BID PO 06/19/17 21:00 07/19/17 20:59 06/20/17 09:16 100 MG Furosemide (Lasix Tab) 20 mg QAM PO 06/20/17 09:00 07/20/17 08:59 06/20/17 09:17 20 MG Lamotrigine (Lamictal Tab) 100 mg BID PO 06/19/17 21:00 07/19/17 20:59 06/20/17 09:18 100 MG Lamotrigine (Lamictal Tab) 200 mg BID PO 06/19/17 21:00 07/19/17 20:59 06/20/17 09:22 200 MG Levetiracetam (Keppra Tab) 500 mg BID PO 06/19/17 21:00 07/19/17 20:59 06/20/17 09:16 500 MG Lorazepam (Ativan Tab) 0.5 mg BID PO 06/19/17 21:00 07/19/17 20:59 06/20/17 09:16 0.5 MG Magnesium Oxide (Mag-Ox Tab) 400 mg BID PO 06/19/17 21:00 07/19/17 20:59 06/20/17 09:17 400 MG Metoclopramide HCl (Reglan Tab) 5 mg BID PO 06/19/17 21:00 07/19/17 20:59 06/20/17 09:16 5 MG Pantoprazole Sodium (Protonix Tab) 40 mg BID PO 06/19/17 21:00 07/19/17 20:59 06/20/17 09:17 40 MG Potassium Chloride (Klor-Con Tab) 20 meq QAM PO 06/20/17 09:00 07/20/17 08:59 06/20/17 09:19 20 MEQ Topiramate (Topamax Tab) 100 mg BID PO 06/19/17 21:00 07/19/17 20:59 06/20/17 09:27 100 MG Apixaban (Eliquis Tab) 5 mg BID PO 06/20/17 21:00 07/20/17 20:59 Trimethoprim/ Sulfamethoxazole (Septra Ds 800/ 160MG Tab) 1 tab QAM PO 06/20/17 09:00 06/30/17 08:59 06/20/17 09:19 1 TAB Albuterol Sulfate (Ventolin 0.083% 2.5MG/3ML Neb) 2.5 mg Q4H PRN INH 06/20/17 08:15 07/20/17 08:14 Fluticasone Propionate (Flonase Nasal [place]) 2 sprays QAM MORIS 06/20/17 09:00 07/20/17 08:59 06/20/17 09:25 2 SPRAYS Ipratropium [place] (Atrovent Hfa Inhaler) 2 puffs TID PRN INH 06/20/17 09:45 07/20/17 09:44 (Dawna Beach, HORACIO) Objective Vital Signs Date Time Temp Pulse Resp B/P (MAP) Pulse Ox O2 Delivery O2 Flow Rate FiO2 06/20/17 07:41 36.5 71 18 103/68 (80) 98 Room Air 06/20/17 03:47 36.6 74 18 95/63 (74) 98 Room Air 06/20/17 00:00 Room Air 06/19/17 23:05 36.5 88 20 103/69 (80) 98 Room Air 06/19/17 20:00 36.7 84 20 115/68 (84) 97 Room Air 06/19/17 16:24 Nasal Cannula 3.0 06/19/17 14:59 36.3 62 19 94/57 (69) 100 Nasal Cannula 2.0 06/19/17 14:09 36.4 82 18 100/64 (76) 99 Nasal Cannula 2.0 06/19/17 13:20 36.5 84 18 128/71 (90) 100 Nasal Cannula 3.0 06/19/17 12:32 36.5 73 17 118/74 (89) 100 Room Air 3.0 06/19/17 12:31 100 Nasal Cannula 3.0 06/19/17 12:00 100 Nasal Cannula 3.0 06/19/17 12:00 36.4 73 16 102/56 (71) 100 Nasal Cannula 3.0 06/19/17 11:35 77 18 95/72 100 Mask 3 06/19/17 11:20 36.9 84 18 112/69 98 Mask 3 06/19/17 11:05 36.9 94 18 132/75 99 Mask 3 06/19/17 10:55 81 18 93/49 95 Oxymask 10 06/19/17 10:45 36.6 104 18 104/75 96 Oxymask 10 06/19/17 10:35 110 18 99/57 97 Oxymask 10 06/19/17 10:32 36.6 111 18 120/51 99 Oxymask 10 (Dawna Beach, PA-C) Physical Exam General Appearance: no apparent distress, + obese Eyes: normal inspection, PERRL ENT: hearing grossly normal Neck: supple Respiratory/Chest: lungs clear, no respiratory distress, no accessory muscle use Cardiovascular: + systolic murmur, + irregularly irregular (rate controlled ) Abdomen: normal bowel sounds, non tender, soft Extremities: no calf tenderness, + swelling (non-pitting edema to bilateral lower extremities ) Neurologic/Psychiatric: alert, normal mood/affect, oriented x 3 Skin: normal color, warm/dry, no rash (Dawna Beach PA-C) Laboratory Results Last 24 Hours Test 06/20/17 06:52 White Blood Count 9.68 K/uL Red Blood Count 3.36 M/uL Hemoglobin 9.7 g/dL Hematocrit 29.5 % Mean Corpuscular Volume 87.8 fL Mean Corpuscular Hemoglobin 28.9 pg Mean Corpuscular Hemoglobin Concent 32.9 g/dl RDW Standard Deviation 47.5 fL RDW Coefficient of Variation 14.8 % Platelet Count 138 K/uL Mean Platelet Volume 10.8 fL Prothrombin Time 11.6 SECONDS Prothromb Time International Ratio 1.1 Sodium Level 143 mmol/L Potassium Level 3.5 mmol/L Chloride Level 112 mmol/L Carbon Dioxide Level 26 mmol/L Anion Gap 5.0 mmol/L Blood Urea Nitrogen 8 mg/dl Creatinine 1.10 mg/dl Est Creatinine Clear Calc Drug Dose 66.3 ml/min Estimated GFR () 59.7 Estimated GFR (Non- 51.5 BUN/Creatinine Ratio 6.8 Random Glucose 132 mg/dl Calcium Level 8.3 mg/dl (Dawna Beach PA-C) Assessment and Plan The patient is a 67-year-old female who underwent a left total knee arthroplasty by Dr. Figueroa earlier in the day today. Seen postoperatively, her main concern is that of getting her morning seizure medications. She has the expected left knee pain after surgery. She also complains of some minor low back discomfort. s/p left total knee arthroplasty on 06/[address] Figueroa: - Surgical management, pain management, PT/OT, and DVT prophylaxis as per primary team - Follow CBC and PRP Anemia, secondary to surgical blood losses: - Ferrous Sulfate 325 mg TID - Follow CBC a.fib: - Eliquis 5 mg BID resumed 06/20 per primary team - Continue Metoprolol 25 mg daily, Lasix 20 mg daily, Mag-Ox 400 mg BID, and KCL 20 mEq daily Asthma: Continue home inhalers Anxiety: Ativan 0.5 mg BID Chronic lower extremity edema: Resume Lasix 20 mg PO daily Seizure disorder: Continue Lamictal 100 mg BID, Levetiracetam 500 mg BID, and Topamax 100 mg BID h/o cellulitis on chronic suppression therapy- follows w/ Dr. Gardner: Continue Bactrim GERD: Protonix 40 mg daily and Reglan 5 mg BID DVT prophylaxis: Lovenox/Eliquis Code Status: LEVEL I, FULL Dispo: Discharge as per primary team- planning for rehab Thank you for this consultation. We will continue to follow throughout hospital stay. (Dawna Beach ., PA-C) Attending Attestation: Pt seen/examined, chart reviewed, care plan d/w JOSE Beach. I agree w/ the cristina components of her documentation. Since choking on a bagel this am she has had no further dysphagia. No pre-hospital dysphagia either. Thinks her asthma might be somewhat active ("my breathing is shallow"). VSS o2 sats nl gen - obese, nad throat - mild erythema neck - no angioedema heart - irregular, HR < 100 lungs - decreased BS bases ow CTA b/l abd - soft, BS+ ext - 1-2+ edema b/l, left knee in large dressing A/P: 1. dysphagia for solids this am leading to choking spell - resolved. Diet changed to mech soft. This is not a chronic issue. I don't see evidence of any angioedema of neck but will observe carefully for recurrent issues. 2. asthma - schedule albuterol q6h. Incentive spirometry. Jaspreet Kimble MD (Jaspreet Kimble MD)
[2017-06-20 15:00] VITALS: BP 124/70; PULSE 69; TEMP 36.5; O2SAT 93
[2017-06-20] MEDS: SENNA 8.6 MG TAB PO SCH (20:43)
[2017-06-20] MEDS: APIXABAN 2.5 MG TAB PO SCH (20:43)
[2017-06-20] MEDS: ALBUTEROL 0.083% NEBU SOLN 3 ML VIAL INH SCH (21:00)
[2017-06-20 23:00] VITALS: BP 104/72; PULSE 82; TEMP 37; O2SAT 97
[2017-06-21] MEDS: OXYCODONE HCL IR 5 MG TAB (IMMEDIATE RELEASE) PO PRN ×2 (02:11→08:26)
[2017-06-21 02:30] VITALS: PULSE 86; O2SAT 96
[2017-06-21] MEDS: ALBUTEROL 0.083% NEBU SOLN 3 ML VIAL INH SCH ×3 (02:30→13:59)
[2017-06-21] MEDS: MoRPHine SULFATE 2 MG/ML CARP IV PRN (04:16)
[2017-06-21] MEDS: ACETAMINOPHEN 500 MG TAB PO SCH ×2 (05:24→13:19)
[2017-06-21 07:09] VITALS: PULSE 69; O2SAT 98
[2017-06-21 07:13] LABS: HEMATOCRIT 30.1 % (37-47); MEAN CELL VOLUME 89.1 fL (80-100); MEAN CORPUSCULAR HEMOGLOBIN 28.7 pg (25-34); MEAN CORPUSCULAR HGB CONC 32.2 g/dl (32-36); MEAN PLATELET VOLUME 11.8 fL (7.4-10.4); PLATELET COUNT 132 K/uL (130-400); RED BLOOD COUNT 3.38 M/uL (4.2-5.4); WHITE BLOOD COUNT 8.79 K/uL (4.8-10.8)
[2017-06-21 07:39] LABS: BUN/CREATININE RATIO 7.8 (10-20); CALCIUM 8.6 mg/dl (8.5-10.1); CREATININE 1.2 mg/dl (0.60-1.20); POTASSIUM 3.5 mmol/L (3.5-5.1)
[2017-06-21 07:58] VITALS: BP 98/62; PULSE 90; TEMP 36.6; O2SAT 99
[2017-06-21 08:17] LABS: INR 1.1 (0.9-1.1); PROTHROMBIN TIME (PATIENT) 11.3 SECONDS (9.0-12.0)
[2017-06-21] MEDS: LORAZEPAM 0.5 MG TAB PO SCH (08:26)
[2017-06-21] MEDS: APIXABAN 2.5 MG TAB PO SCH (08:28)
[2017-06-21] MEDS: DOCUSATE SODIUM 100 MG CAP PO SCH (08:28)
[2017-06-21] MEDS: ASCORBIC ACID 500 MG TAB PO SCH ×2 (08:30→08:36)
[2017-06-21] MEDS: MULTIVITAMIN TAB PO SCH (08:30)
[2017-06-21] MEDS: FERROUS GLUCONATE 324 MG TAB PO SCH ×2 (08:30→13:18)
[2017-06-21] MEDS: FUROSEMIDE 20 MG TAB PO SCH (08:31)
[2017-06-21] MEDS: LEVETIRACETAM 500 MG TAB PO SCH (08:31)
[2017-06-21] MEDS: TOPIRAMATE 100 MG TAB PO SCH (08:31)
[2017-06-21] MEDS: METOCLOPRAMIDE HCL 5 MG TAB PO SCH (08:33)
[2017-06-21] MEDS: POTASSIUM CHLORIDE 20 MEQ TABCR PO SCH (08:33)
[2017-06-21] MEDS: PANTOprazole SOD 40 MG TAB PO SCH (08:33)
[2017-06-21] MEDS: SULFAMETHOXAZOLE/TRIMETHOPRIM DS 800/160MG TAB PO SCH (08:35)
[2017-06-21] MEDS: MAGNESIUM OXIDE 400 MG TAB PO SCH (08:35)
--- NOTE | 2017-06-21 09:37 | Hospitalist Progress Note ---
Hospitalist Progress Note Date of Service Jun 21, 2017. (Dawna Beach ., HORACIO) Subjective Pt evaluation today including: conversation w/ patient, physical exam, chart review, lab review, review of inpatient medication list Voiding: no voiding problems, no incontinence Patient states she is feeling well. Eating and drinking OK. No more episodes of dysphagia. No BM/flatus. No abdominal discomfort/bloating. Bowel regimen on board. L knee is painful, but controlled. Patient denies any fever, chills, sweats, lightheadedness, dizziness, vision changes, CP, palpitations, edema, SOB, wheezing, cough, abdominal pain, nausea, vomiting, diarrhea, urinary symptoms, melena, numbness/tingling, weakness, anxiety/depression, active bleeding, or new skin discoloration/changes. (Dawna Beach ., JEISONC) Medications Current Inpatient Medications Medications (Trade) Dose Ordered Sig/Galileo Route Start Time Stop Time Status Last Admin Dose Admin Oxycodone HCl (Roxicodone Immediate Rel Tab) 1 TABLET FOR PAIN RATING... Q4H PRN PO 06/19/17 10:45 07/03/17 10:44 06/21/17 08:26 10 MG Morphine Sulfate (MoRPHine SULFATE INJ) 2 mg Q2HWA PRN IV 06/19/17 10:45 07/03/17 10:44 06/21/17 04:16 2 MG Acetaminophen (Tylenol Tab) 1,000 mg Q8H PO 06/19/17 14:00 07/19/17 10:44 06/21/17 05:24 1,000 MG Magnesium Hydroxide (Milk Of Magnesia Susp) 30 ml Q6H PRN PO 06/19/17 10:45 07/19/17 10:44 Bisacodyl (Dulcolax Supp) 10 mg DAILY PRN [place] 06/19/17 10:45 07/19/17 10:44 Sodium Biphosphate/ Sodium Phosphate (Fleet Enema) 132 ml DAILY PRN [place] 06/19/17 10:45 07/19/17 10:44 Senna (Senokot Tab) 17.2 mg HS PO 06/19/17 21:00 07/19/17 20:59 06/20/17 20:43 17.2 MG Diphenhydramine HCl (Benadryl Cap) 25 mg Q8H PRN PO 06/19/17 10:45 07/19/17 10:44 Al Hydrox/Mg Hydrox/Simethicone (Maalox Max Susp) 15 ml Q4H PRN PO 06/19/17 10:45 07/19/17 10:44 Multivitamins (Multivitamin Tab) 1 tab QAM PO 06/20/17 09:00 07/20/17 08:59 06/21/17 08:30 1 TAB Ondansetron HCl (Zofran Inj) 4 mg Q6H PRN IV 06/19/17 10:45 07/19/17 10:44 Metoclopramide HCl (Reglan Inj) 10 mg Q6H PRN IV 06/19/17 10:45 07/19/17 10:44 Ferrous Gluconate (Ferrous Gluconate Tab) 324 mg TIDM PO 06/19/17 12:30 07/19/17 12:29 06/21/17 08:30 324 MG Ascorbic Acid (Vitamin C Tab) 500 mg QAM PO 06/20/17 09:00 07/20/17 08:59 06/21/17 08:30 500 MG Miscellaneous Information (Order Awaiting Action) 1 ea QS N/A 06/19/17 16:00 07/19/17 15:59 Docusate Sodium (coLACE CAP) 100 mg BID PO 06/19/17 21:00 07/19/17 20:59 06/21/17 08:28 100 MG Furosemide (Lasix Tab) 20 mg QAM PO 06/20/17 09:00 07/20/17 08:59 06/21/17 08:31 20 MG Lamotrigine (Lamictal Tab) 100 mg BID PO 06/19/17 21:00 07/19/17 20:59 06/21/17 08:34 100 MG Lamotrigine (Lamictal Tab) 200 mg BID PO 06/19/17 21:00 07/19/17 20:59 06/21/17 08:37 200 MG Levetiracetam (Keppra Tab) 500 mg BID PO 06/19/17 21:00 07/19/17 20:59 06/21/17 08:31 500 MG Lorazepam (Ativan Tab) 0.5 mg BID PO 06/19/17 21:00 07/19/17 20:59 06/21/17 08:26 0.5 MG Magnesium Oxide (Mag-Ox Tab) 400 mg BID PO 06/19/17 21:00 07/19/17 20:59 06/21/17 08:35 400 MG Metoclopramide HCl (Reglan Tab) 5 mg BID PO 06/19/17 21:00 07/19/17 20:59 06/21/17 08:33 5 MG Pantoprazole Sodium (Protonix Tab) 40 mg BID PO 06/19/17 21:00 07/19/17 20:59 06/21/17 08:33 40 MG Potassium Chloride (Klor-Con Tab) 20 meq QAM PO 06/20/17 09:00 07/20/17 08:59 06/21/17 08:33 20 MEQ Topiramate (Topamax Tab) 100 mg BID PO 06/19/17 21:00 07/19/17 20:59 06/21/17 08:31 100 MG Apixaban (Eliquis Tab) 5 mg BID PO 06/20/17 21:00 07/20/17 20:59 06/21/17 08:28 5 MG Trimethoprim/ Sulfamethoxazole (Septra Ds 800/ 160MG Tab) 1 tab QAM PO 06/20/17 09:00 06/30/17 08:59 06/21/17 08:35 1 TAB Fluticasone Propionate (Flonase Nasal [place]) 2 sprays QAM MORIS 06/20/17 09:00 07/20/17 08:59 06/20/17 09:25 2 SPRAYS Ipratropium [place] (Atrovent Hfa Inhaler) 2 puffs TID PRN INH 06/20/17 09:45 07/20/17 09:44 Ascorbic Acid (Vitamin C Tab) 250 mg BID PO 06/20/17 21:00 07/03/17 20:00 06/21/17 08:36 250 MG Albuterol Sulfate (Ventolin 0.083% 2.5MG/3ML Neb) 2.5 mg Q6R INH 06/20/17 21:00 07/20/17 20:59 06/21/17 07:08 2.5 MG Polyethylene (Miralax Powder Packet) 17 gm DAILY PO 06/21/17 09:30 07/21/17 09:29 UNV (Dawna Beach, JOSE-C) Objective Vital Signs Date Time Temp Pulse Resp B/P (MAP) Pulse Ox O2 Delivery O2 Flow Rate FiO2 06/21/17 07:58 36.6 90 16 98/62 (74) 99 Nasal Cannula 2.0 06/21/17 07:30 Nasal Cannula 2.0 06/21/17 07:09 69 18 98 Nasal Cannula 2.0 06/21/17 02:30 86 18 96 Nasal Cannula 2.0 06/21/17 00:00 Room Air 06/20/17 23:00 37.0 82 18 104/72 (83) 97 Room Air 06/20/17 15:20 Room Air 06/20/17 15:00 36.5 69 16 124/70 (88) 93 Room Air 06/20/17 11:32 36.4 70 18 102/66 (78) 99 Room Air 06/20/17 10:06 95 Room Air (Dawna Beach, JOSE-C) Physical Exam General Appearance: no apparent distress, + obese Eyes: normal inspection, PERRL ENT: hearing grossly normal Neck: supple Respiratory/Chest: lungs clear, no respiratory distress, no accessory muscle use Cardiovascular: + systolic murmur, + irregularly irregular (rate controlled) Abdomen: normal bowel sounds, non tender, soft, + hernia (non-tender/reducible) Extremities: no pedal edema, no calf tenderness, + pertinent finding (L knee incision site intact, clean/dry, no obvious erthema or drainage) Neurologic/Psychiatric: alert, normal mood/affect, oriented x 3 Skin: normal color, warm/dry, no rash (Dawna Beach ., JOSE-C) Laboratory Results Last 24 Hours Test 06/21/17 06:13 06/21/17 07:32 White Blood Count 8.79 K/uL Red Blood Count 3.38 M/uL Hemoglobin 9.7 g/dL Hematocrit 30.1 % Mean Corpuscular Volume 89.1 fL Mean Corpuscular Hemoglobin 28.7 pg Mean Corpuscular Hemoglobin Concent 32.2 g/dl RDW Standard Deviation 48.7 fL RDW Coefficient of Variation 14.9 % Platelet Count 132 K/uL Mean Platelet Volume 11.8 fL Sodium Level 142 mmol/L Potassium Level 3.5 mmol/L Chloride Level 110 mmol/L Carbon Dioxide Level 25 mmol/L Anion Gap 7.0 mmol/L Blood Urea Nitrogen 9 mg/dl Creatinine 1.20 mg/dl Est Creatinine Clear Calc Drug Dose 60.8 ml/min Estimated GFR () 53.8 Estimated GFR (Non- 46.4 BUN/Creatinine Ratio 7.8 Random Glucose 108 mg/dl Calcium Level 8.6 mg/dl Prothrombin Time 11.3 SECONDS Prothromb Time International Ratio 1.1 (Dawna Beach, HORACIO) Assessment and Plan The patient is a 67-year-old female who underwent a left total knee arthroplasty by Dr. Figueroa earlier in the day today. Seen postoperatively, her main concern is that of getting her morning seizure medications. She has the expected left knee pain after surgery. She also complains of some minor low back discomfort. s/p left total knee arthroplasty on 06/[address] Figueroa: - Surgical management, pain management, PT/OT, and DVT prophylaxis as per primary team -- Bowel regimen- Senokot HS, Colace BID, Reglan BID, Dulcolax PRN, Milk of Mag PRN, fleet enema PRN- add MiraLAX daily -- Pain management- Roxicodone 1 tab q4 hrs, Morphine 2 mg IV q2 hrs, Tylenol 1000 mg q6 hrs PRN - Follow CBC and PRP Acute anemia, secondary to surgical blood losses- STABLE: - Ferrous Sulfate 325 mg TID - Follow CBC Chronic a.fib: - Eliquis 5 mg BID resumed 06/20 per primary team - Continue Metoprolol 25 mg daily, Lasix 20 mg daily, Mag-Ox 400 mg BID, and KCL 20 mEq daily Asthma: Continue home inhalers Anxiety: Ativan 0.5 mg BID Chronic lower extremity edema: Resume Lasix 20 mg PO daily Seizure disorder: Continue Lamictal 100 mg BID, Levetiracetam 500 mg BID, and Topamax 100 mg BID h/o cellulitis on chronic suppression therapy- follows w/ Dr. Gardner: Continue Bactrim GERD: Protonix 40 mg daily and Reglan 5 mg BID DVT prophylaxis: Eliquis Code Status: LEVEL I, FULL Dispo: Discharge as per primary team- planning for rehab at [facility] Thank you for this consultation. We will continue to follow throughout hospital stay. (Dawna Beach ., PA-C) Attending Attestation: Pt seen/examined, chart reviewed, care plan d/w JOSE Beach. I agree w/ the cristina components of her documentation. Dysphagia - has not recurred; swallowing w/o difficulty. Denies any asthma symptoms. +Flatus. VSS o2 sats nl gen - obese, nad throat - mild erythema resolved heart - irregular, s1, s2, lungs - CTA b/l abd - soft, BS+, reducible hernia (large) right side of abdomen, NT ext - 1-2+ edema b/l, left knee in large dressing A/P: 1. dysphagia for solids - resolved. One-time episode only. 2. asthma - stable, symptoms improved. other medical problems stable from medical standpoint can be d/c to rehab Jaspreet Kimble MD (Jaspreet Kimble MD)
[2017-06-21] MEDS ORDERED: POLYETHYLENE (MIRALAX) 17 GM PACK PO SCH (10:30)
[2017-06-21 10:31] VITALS: O2SAT 92
[2017-06-21] MEDS: FLUTICASONE PROPIONATE NA SPR 16 GM BTL NAE SCH (10:38)
[2017-06-21] MEDS ORDERED: OXYC-57 PO (12:39)
[2017-06-21] MEDS ORDERED: ASCA500 PO (12:39)
--- NOTE | 2017-06-21 12:49 | Discharge Instructions ---
Discharge Instructions Date of Service Jun 21, 2017. Admission Reason for Admission: Left Knee Degenerative Joint Disease Discharge Discharge Diagnosis / Problem: s/p Left total knee arthroplasty Discharge Goals Goal(s): Decrease discomfort, Improve function, Increase independence Activity Recommendations Activity Level: Up Ad Shelbie, Ambulates in room, Self Positioning, OOB In Chair, Assistance Required Therapies: Physical Therapy, Weight Bearing Status (as tolerated with walker and assist ), Occupational Therapy Weightbearing Status: Left weightbearing (as tolerated) Lifting Limitations: until after follow-up appointment Shower/Bathe: may shower/bathe in 3 days (do not submerge or scrub directly, pat dry afterwards and keep covered) . Additional Information Patient informed of condition: Yes Advance Directives: No DNR: No Level of Care: Acute Rehab Communicable Disease: No Prognosis: Stable Flores Catheter: No Instructions / Follow-Up Instructions / Follow-Up New Medicine: * You will likely be taking one or more of these medications: 1. Percocet - Take, as directed, when you need it, every four to six hours to control your pain 2. Iron Sulfate - Take two times each day for 4 weeks after surgery to 4. Vitamin C - helps your body utilize the Iron Sulfate, take for 4 weeks also help you replace blood loss from surgery. 3. Eliquis - resume as directed, which will help with your current A-Fib and also work as DVT prophylaxis after your knee replacement * The most common side effects of pain medicine and iron are nausea and constipation. If nausea or constipation is too much of a problem or if you have any questions about your new medicines or doses, call [facility] at . We will try to help you manage these issues. Narcotic Pain Medication Post-Operatively has a high tendency to cause constipation. Signs, Symptoms, and Causes Constipation is when you are not passing stool as often as you normally do. Your stool becomes hard and dry, and it is difficult to pass. You might feel bloated and have pain, or you might have to strain when you try to go. Some medicines, including narcotics, can make you constipated. You can also get constipated if you are not getting enough fiber, using the bathroom as soon as you feel the urge to go, or getting enough exercise. Try to get to know your normal bowel movement pattern, so that you can keep constipation from getting worse. How to Prevent Constipation Drink more water and eat more fiber. Try these things to relieve your constipation: * Do not skip meals. * Avoid processed or fast foods, such as white breads, pastries, doughnuts, sausage. fast-food burgers, potato chips, and Sudanese fries. Many foods are good natural "laxatives" that will help you move your bowels. High-fiber foods help waste move through your body. Add foods with fiber to your diet slowly because eating more fiber can cause gas Drink 8 to10 cups of liquids, especially water, every day. Most fruits will help ease constipation. Berries, peaches, apricots, plums, raisins, rhubarb, and prunes are just some that may help. Do not peel fruits that have edible skins, since a lot of the fiber is in their skins. Choose breads, crackers, pasta, pancakes, and waffles made with whole grains, or make your own. Use brown rice or wild rice instead of white rice. Eat high- fiber cereals. Vegetables can also add fiber to your diet. Some high-fiber vegetables are asparagus, broccoli, corn. squash, and potatoes (with the skin still on). Salads made with lettuce, spinach, and cabbage will also help. Legumes (navy beans, kidney beans, chick peas, soy beans, and lentils), peanuts , walnuts, and almonds will also add fiber to your diet. Other foods you can eat are: * Fish, chicken, turkey, or other lean meats. These do not have fiber, but they will not make constipation worse. * Snacks such as raisin cookies, fig bars, and popcorn. You can also sprinkle 1 or 2 teaspoons of bran flakes, ground flax seeds, wheat bran, or psyllium on foods such as yogurt, cereal, and soup. Or, add them to your smoothie. Immediately after surgery, if you are taking pain medications, we recommend that you start taking stool softeners and a gentle laxative. You can buy stool softeners at any pharmacy. They will help you pass stool more easily. Your doctor may prescribe a laxative to relieve your constipation. It may be a pill or liquid. Do NOT take it if you have severe stomach pain, nausea, or vomiting. Do NOT take it for more than 1 week. It should start to work in 2 to 5 days. * As long as you take pain medication you will most likely need a laxative. * Always drink plenty of water (8 to 10 cups a day) when you are using laxatives. * Store your laxative medicine safely in a medicine cabinet, where children cannot get to it. * Take the laxative as directed, daily as needed. Try to stop laxatives within 2-3 weeks after surgery. Some Examples: * Stool Softeners: Colace, vegetables, Metamucil, Citrucel, any type of food roughage. * Laxatives: Sennakot tablets, Miralax, Milk of Magnesia, Dulcolax, and so on. We recommend trying the gentle laxatives before going to the strong ones (i.e. ExLax). Some people get a rash, nausea, or sore throat while taking laxatives. Women who are or breast-feeding and children under age 6 should NOT take laxatives. Bulk-forming laxatives such as Metamucil or Perdiem can help pull water into your intestines and make your stools more bulky. VERY IMPORTANT TO READ AND REVIEW" Blood Clots and Blood Thinning Medicine: * Resume your Eliquis to prevent blood clots Pain: * The immediate post-operative period after knee replacement surgery is often quite painful. * You are given a prescription for pain medicine. You should take it, as directed, when you need it, especially before physical therapy and before going to bed. Pain that interferes with sleep is very common and can last several months. * You will likely need pain medicine for the first four to six weeks. It will not stop all of the pain. The pain will lessen and as you feel better, you may change to milder pain medicine such as Tylenol. * The most common side effects of pain medicine are nausea and constipation, so don't take more than you need. Physical Therapy: * You will have physical therapy two or three times each week for four to six weeks after your surgery in order to regain your knee range of motion and to retrain your knee to work properly. * It is just as important to make sure you are getting your knee perfectly straight as it is to regain your knee bend. * Taking a pain pill an hour before therapy can help you have a more productive and comfortable therapy session if needed. Home Exercise: * You were shown a series of exercises (heel props, heel slides, etc.) in the hospital. Do these exercises three to four times each day including the exercises you were shown in physical therapy. Walking: * Get up and walk several times each day. For the first four weeks, try not to stand or walk for more than one hour at a time. If you do stand or walk for more than one hour, you will not hurt anything, but your knee and leg will likely swell. * As you feel comfortable, you may change from the walker or crutches to a cane and then to independent walking. SELF CARE INSTRUCTIONS AFTER TOTAL KNEE REPLACEMENT A. You may need to continue a physical therapy program after discharge from the hospital. There are several options available to you. Your doctor will assist you in selecting the best one for you. 1. An out-patient facility 2 to 3 times a week for therapy or home therapy. 2. Continue working on all exercises taught to you in the hospital. Your goals should be to increase bending of your knee to 90 degrees and beyond and to fully straighten your knee. B. You may progress at your own pace from walking with a walker or crutches to a cane; then to no assistive devices. C. Make walking a part of your daily routine. Be up as much as comfortable with rest periods throughout the day. Rest with leg elevation is very important. Use the ice wrap frequently for the first 3-4 weeks. D. There are no restrictions on activities. You may ride in a car, shop, participate in auto glass technician and all social activities. E. Do not place a pillow behind your knee when resting. A pillow at your ankle is okay. TEDs/Elastic Stockings: * The white elastic stockings help limit swelling and prevent blood clots from forming in your legs. The more you wear them, the more they work. * Wear them for two weeks after knee replacement surgery, approximately 20 hours per day. it is OK to remove them to rest your legs or bathe. Prevention of Infection: * Take antibiotics one hour before any dental cleaning, dental work, urological procedure, gastrointestinal procedure or any invasive surgery in order to prevent your new joint from getting infected. (See pre-op instruction sheet ) * You may get the antibiotics from the doctor performing the procedure or you may call our office at before and we will call in a prescription to the pharmacy of your choice. Things to Watch For: * Drainage from the incision site that starts three or more days after your surgery. * Severely increased knee/leg pain or swelling. * Increased redness at the incision site. * Fever above 102 degrees Fahrenheit. * Unusual chest pain or shortness of breath. * Unusual pain or burning with urination. Call [facility] at with any of the above problems or if you have any questions about your medicines or recovery. Follow-up Visit: You are schedule to see Dr. Figueroa 07/03/17 2:30pm for a progress check and staple removal at [facility]. Avoid all tobacco products. If you need help to stop smoking, call [facility] FREE QUITLINE at . This is a free call. Current Hospital Diet Patient's current hospital diet: AHA Diet (Heart Healthy) Discharge Diet Recommended Diet: AHA Diet (Heart Healthy) Procedures Procedures Performed: Left Total Knee Arthroplasty, Cemented Pending Studies Studies pending at discharge: no Physician Orders On Transfer Dressing Changes: Please perform daily dressing changes. Do not submerge left knee in a bath. It may get wet if showering but do not scrub directly, pat dry afterwards and keep covered. Additional Orders: PT/OT: Eval & Treat [id number] x 4-6 weeks DX: S/P Left total knee arthroplasty POLST Discussion: without POLST completion Medical Emergencies . Who to Call and When: Medical Emergencies: If at any time you feel your situation is an emergency, please call 911 immediately. . Non-Emergent Contact Non-Emergency issues call your: Primary Care Provider . . "Provider Documentation" section prepared by He Menjiavr. . Core Measure Problem Core Measures: VTE VTE Core Measures Date of VTE Diagnosis: Jun 21, 2017 Time of VTE Diagnosis: 12:48 Reason no anticoag overlap I/P: Treatment provided - N/A Reason no anticoag overlap @DC: Treatment provided - N/A [place] Drug Monitoring Program Search Results: no issues identified
--- NOTE | 2017-06-21 12:56 | Progress Note ---
Orthopedic SOAP Note Subjective Date of Service: Jun 21, 2017. 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 List Medical Problems: (1) Atrial flutter Status: Acute (2) Back strain Status: Acute (3) Bloody stool Status: Acute (4) Diffuse pain Status: Acute (5) Epigastric abdominal pain Status: Acute (6) Forearm abrasion Status: Acute (7) Headache Status: Acute (8) Headache Status: Acute (9) Headache above the eye region Status: Acute (10) Hypertension Status: Acute (11) Left against medical advice Status: Acute (12) Left sided chest pain Status: Acute (13) Left sided chest pain Status: Acute (14) Lower abdominal pain Status: Acute (15) Malaise Status: Acute (16) Sore throat Status: Acute (17) Spasm of back muscles Status: Acute (18) Substernal chest pain Status: Acute Objective calves soft nontender, N/V intact, capillary refill less than 2 sec., dressing C /D/I, incision C/D/I, A&O x3, toes mobile attempts to perform straight leg raise, not quite able to completely perform but certainly provides good attempt and will keep working on this, should improve steadily otherwise NAD, eating lunch, resting comfortably excited to go to [facility] today Date Time Temp Pulse Resp B/P (MAP) Pulse Ox O2 Delivery O2 Flow Rate FiO2 06/21/17 10:31 92 Room Air 06/21/17 07:58 36.6 90 16 98/62 (74) 99 Nasal Cannula 2.0 06/21/17 07:30 Nasal Cannula 2.0 06/21/17 07:09 69 18 98 Nasal Cannula 2.0 06/21/17 02:30 86 18 96 Nasal Cannula 2.0 06/21/17 00:00 Room Air 06/20/17 23:00 37.0 82 18 104/72 (83) 97 Room Air 06/20/17 15:20 Room Air 06/20/17 15:00 36.5 69 16 124/70 (88) 93 Room Air Laboratory Results 24 Hours: Test 06/21/17 06:13 06/21/17 07:32 Hematocrit 30.1 % Hemoglobin 9.7 g/dL Prothromb Time International Ratio 1.1 Prothrombin Time 11.3 SECONDS Assessment Post op day 2: s/p Left TKA Plan continue post op care pain control with medications, ice, elevate WBAT left LE and walker, immobilizer if available PT/OT DC cortez AM post op day 1 dressing changed by nurses post op day 2 resume diet completed Lovenox regimen, resumed Eliquis appreciate medicine input will discuss findings further with Dr. Figueroa transferring to [facility] today 2 week f/u with Dr. Figueroa for staple removal
--- NOTE | 2017-06-21 13:01 | Discharge Summary ---
Orthopedic Discharge Summary Admission Date/Reason Jun 19, 2017 at 06:30 Left Knee Degenerative Joint Disease. Discharge Date/Disposition Jun 21, 2017 Rehab ([facility]) Diagnosis Principal Diagnosis: Left knee DJD Secondary Diagnoses/Problems: s/p Left TKA Procedure(s) Performed Left total knee arthroplasty 06/19/[address] Kurt Figueroa MD from [facility] Consultations [facility] Medication Reconciliation New Medications: Oxycodone/Acetaminophen 5MG/325MG (Percocet 5MG/325MG) Tab 1-2 TABLETS PO Q4H PRN for Pain, #36 TAB Ascorbic Acid (Vitamin C) 500 Mg Tab 500 MG PO QAM for 30 Days, #30 TAB Continued Medications: Albuterol Hfa (Ventolin Hfa) 200 Puffs/34577 Mcg Aers 2 PUFFS PO UD PRN for SOB/Wheezing Albuterol Sulf (Proventil 0.083% 2.5MG/3ML) 2.5 Mg/3 Ml Nebu 1 DOSE NEB UD PRN for SOB/Wheezing Apixaban (Eliquis) 5 Mg Tab 5 MG PO BID Docusate Sodium (Colace) 100 Mg Cap 1 CAP PO BID Ferrous Sulfate (Kp Ferrous Sulfate) 325 Mg Tab 1 TAB PO BID for 30 Days, #60 TAB 3 Refills Fluticasone Propionate (Nasal) (Flonase Allergy Relief) 50 Mcg/Act Spr 2 SPRAY MORIS QAM Furosemide (Lasix) 20 Mg Tab 20 MG PO QAM Ipratropium [place] (Atrovent Hfa) 200 Puffs/3400 Mcg Aers 2 PUFFS INH QID PRN for SOB/Wheezing, #12.9 GM 3 Refills Lamotrigine (Lamictal) 100 Mg Tab 100 MG PO BID, TAB Lamotrigine (Lamictal) 200 Mg Tab 200 MG PO BID, TAB TOTAL DOSE 300MG PO BID Levetiractam (Levetiracetam) 500 Mg Tab 500 MG PO BID Lorazepam (Ativan) 0.5 Mg Tab 0.5 MG PO BID Magnesium Oxide (Mag-Ox) 400 Mg Tab 400 MG PO BID, TAB Metoclopramide Hcl (Metoclopramide Hcl) 5 Mg Tab 5 MG PO BID Multivitamin (Multivitamin) Tab 1 TAB PO QAM, TAB Pantoprazole Sodium (Protonix) 40 Mg Tab 40 MG PO BID Potassium Chloride Microencaps (Potassium Chloride Er) 20 Meq Tab 20 MEQ PO QAM Sulfa/Trimethoprim (Bactrim Ds 800MG/160MG) Tab 1 TAB PO QAM, #6 TAB TAKES ON REGULAR BASIS Topiramate (Topiramate) 100 Mg Tab 100 MG PO BID Discontinued Medications: [Voltaren Gel] () 1 DOSE TOP UD PRN for Pain Admission Physical Exam As per Admitting History & Physical. Hospital Course Date Time Temp Pulse Resp B/P (MAP) Pulse Ox O2 Delivery O2 Flow Rate FiO2 06/21/17 10:31 92 Room Air 06/21/17 07:58 36.6 90 16 98/62 (74) 99 Nasal Cannula 2.0 06/21/17 07:30 Nasal Cannula 2.0 06/21/17 07:09 69 18 98 Nasal Cannula 2.0 06/21/17 02:30 86 18 96 Nasal Cannula 2.0 06/21/17 00:00 Room Air 06/20/17 23:00 37.0 82 18 104/72 (83) 97 Room Air 06/20/17 15:20 Room Air 06/20/17 15:00 36.5 69 16 124/70 (88) 93 Room Air Last 24 Hours Test 06/21/17 06:13 06/21/17 07:32 White Blood Count 8.79 K/uL Red Blood Count 3.38 M/uL Hemoglobin 9.7 g/dL Hematocrit 30.1 % Mean Corpuscular Volume 89.1 fL Mean Corpuscular Hemoglobin 28.7 pg Mean Corpuscular Hemoglobin Concent 32.2 g/dl RDW Standard Deviation 48.7 fL RDW Coefficient of Variation 14.9 % Platelet Count 132 K/uL Mean Platelet Volume 11.8 fL Sodium Level 142 mmol/L Potassium Level 3.5 mmol/L Chloride Level 110 mmol/L Carbon Dioxide Level 25 mmol/L Anion Gap 7.0 mmol/L Blood Urea Nitrogen 9 mg/dl Creatinine 1.20 mg/dl Est Creatinine Clear Calc Drug Dose 60.8 ml/min Estimated GFR () 53.8 Estimated GFR (Non- 46.4 BUN/Creatinine Ratio 7.8 Random Glucose 108 mg/dl Calcium Level 8.6 mg/dl Prothrombin Time 11.3 SECONDS Prothromb Time International Ratio 1.1 67 y/o female with longstanding left knee pain, failed conservative treatment, surgery recommended, underwent left TKA on 06/19/17, tolerated the procedure very well, activity level progressed post-operatively and was able to transferred to [facility] on 06/21/17. Discharge Instructions Please refer to the electronic Patient Visit Report (Discharge Instructions) for additional information.
[2017-06-21 13:23] VITALS: BP 98/62; TEMP 36.6; O2SAT 92
[2017-06-21 14:00] VITALS: PULSE 94; O2SAT 96
[2017-07-02] MEDS ORDERED: MULT-1042 PO (00:01)
[2017-07-02] MEDS ORDERED: SENN-65 PO (00:02)
[2017-07-04] MEDS ORDERED: HYDR-4079 PO (13:08)
[2017-07-04] MEDS ORDERED: CEPH500C PO (13:08)
[2017-07-04] MEDS ORDERED: SULF800T23 PO (18:32)
[2017-08-16] MEDS ORDERED: FURO20TA PO (17:23)
[2017-08-16] MEDS ORDERED: FLUT0.15 NAE (17:23)
[2017-08-16] MEDS ORDERED: LAMO100T16 PO (17:23)
[2017-08-16] MEDS ORDERED: LAMO200T38 PO (17:23)
[2017-08-16] MEDS ORDERED: DOCU-94 PO (17:23)
[2017-08-16] MEDS ORDERED: TPM100 PO (17:23)
[2017-08-16] MEDS ORDERED: FERR1TAB13 PO (17:23)
[2017-08-16] MEDS ORDERED: IPRA0.03 NAE (17:23)
[2017-08-16] MEDS ORDERED: APIX1TAB3 PO (17:23)
[2017-08-16] MEDS ORDERED: SULF800T23 PO (17:23)
[2017-08-16] MEDS ORDERED: LEVE500T PO (17:23)
[2017-08-16] MEDS ORDERED: TPRSR/25 PO (17:23)
[2017-08-16] MEDS ORDERED: VNTHFA/IN PO (17:23)
[2017-08-16] MEDS ORDERED: PANT40TA PO (17:23)
[2017-08-16] MEDS ORDERED: POTA20TA13 PO (17:23)
[2017-08-16] MEDS ORDERED: LORA-741 PO (17:23)
[2017-08-16] MEDS ORDERED: METO5TAB2 PO (17:23)
== END 2017-06-21 14:37 | DRG 470 ==
LOC: C.ACU 05:03 → C.3E 06:30 → ENRESERV 11:37
PROVIDERS: ADMIT Orthopaedic Surgery Sports Medicine; ATTEND Orthopaedic Surgery Sports Medicine
PROC: 0SRD0J9 Replacement of Left Knee Joint with Synthetic Substitute, Cemented, Open Approach (ICD-10-PCS; principal; 2017-06-19 07:00)
DX: M17.12 Unilateral primary osteoarthritis, left knee (principal); D62 Acute posthemorrhagic anemia; Z68.41 Body mass index [BMI] 40.0-44.9, adult; R13.10 Dysphagia, unspecified; T17.928A Food in respiratory tract, part unspecified causing other injury, initial encounter; X58.XXXA Exposure to other specified factors, initial encounter; Y92.230 Patient room in hospital as the place of occurrence of the external cause; I48.2 Chronic atrial fibrillation; I10 Essential (primary) hypertension; J45.909 Unspecified asthma, uncomplicated; K21.9 Gastro-esophageal reflux disease without esophagitis; G40.909 Epilepsy, unspecified, not intractable, without status epilepticus; J32.9 Chronic sinusitis, unspecified; G62.9 Polyneuropathy, unspecified; R60.0 Localized edema; F41.9 Anxiety disorder, unspecified; E66.01 Morbid (severe) obesity due to excess calories; Z79.01 Long term (current) use of anticoagulants; Z79.2 Long term (current) use of antibiotics; Z79.899 Other long term (current) drug therapy

== ENCOUNTER → 2017-06-26 | Outpatient (CLI) | payer OTHER ==
[~2017-06-26] MED LIST changes: +ASCA500 PO; +ASCO500T16 PO; +CEPH500C PO; +ESTCR PV; +HYDR-4079 PO; +IPRA0.03 NAE; +MULT-1042 PO; +OXYC-57 PO; +OXYC1TAB3 PO; +SENN-65 PO; +TPRSR/25 PO; -VOLTAREN GEL TOP; +[UNRECOGNIZED DRUG - CODE] PO
--- NOTE | 2017-06-26 17:06 | DIAGNOSTIC IMAGING REPORT ---
BILATERAL LOWER EXTREMITY VENOUS DOPPLER HISTORY: L LEG SWELLING, POST OP, R/O DVT COMPARISON STUDY: None. FINDINGS: There is normal compressibility, flow, and augmentation within the left lower extremity deep venous system. IMPRESSION: No DVT within the left lower extremity. Electronically signed by: Shane Paulino M.D. 06/26/2017 5:04 PM Dictated Date/Time: 06/26/2017 5:03 PM
== END | disposition home or self-care (01) ==
LOC: C.ULTR 16:12
PROVIDERS: ATTEND Orthopaedic Surgery Sports Medicine
DX: Z09 Encounter for follow-up examination after completed treatment for conditions other than malignant neoplasm (principal)

== ENCOUNTER 2017-07-01 22:45 | Inpatient (IN) | payer OTHER ==
[~2017-07-01] VITALS: Ht 170.2 cm; Wt 117.8 kg
[~2017-07-01 22:45] MED LIST changes: -ASCO500T16 PO; -CEPH500C PO; -ESTCR PV; -HYDR-4079 PO; -IPRA0.03 NAE; -MULT-1042 PO; -OXYC1TAB3 PO; -SENN-65 PO; -TPRSR/25 PO; -[UNRECOGNIZED DRUG - CODE] PO
[2017-07-02] MEDS ORDERED: MULT-1042 PO ×2 (00:01)
[2017-07-02] MEDS ORDERED: HYDR-4079 PO (00:01)
[2017-07-02] MEDS ORDERED: SENN-65 PO ×2 (00:02)
[2017-07-02] MEDS ORDERED: VANCOMYCIN INJ 2,250 MG in SODIUM CHLORIDE 0.9% 500ML 500 ML IV STA (00:06)
[2017-07-02] MEDS ORDERED: LORAZEPAM 2 MG/ML 1 ML VIAL IV STA (00:06)
[2017-07-02] MEDS ORDERED: PIPERACILLIN/TAZOBACTAM 4.5 GM/100ML D5W IV STA (00:06)
--- NOTE | 2017-07-02 00:41 | EMERGENCY ROOM VISIT NOTE ---
History Report prepared by Chiara: Ibeth Salgado Under the Supervision of: Dr. Chau Smallwood M.D. First contact with patient: 22:53 Chief Complaint: KNEEPAIN Stated Complaint: L KNEE PAIN & SWELLING History of Present Illness The patient is a 67 year old female who presents to the Emergency Room with complaints of an episode of left knee pain starting this evening. She states that 13 days ago she had a total knee replacement. She states that a week ago she woke up in [facility] with puss coming from her incision. She reports that they took her to a clinic that put her on antibiotics. She states that yesterday she was discharged home from [facility] and took the last of her antibiotics today. The patient reports that it seemed that she was much better than when she arrived. She states that she came to the ED tonight because it is so swollen and she can't stand the pain any more. The patient complains of nausea. The patient denies vomiting and being on blood thinners. The patient notes that she is scared of losing her leg. Source of History: patient Onset: evening Position: knee (left) Symptom Intensity: unbearble Quality: other (swollen) Timing: other (episode) Associated Symptoms: + nausea, No vomiting Note: The patient denies being on blood thinners. Review of Systems See HPI for pertinent positives and negatives. A total of ten systems were reviewed and were otherwise negative. 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 (16) Fall (17) Fracture of rib with routine healing (18) Gastroesophageal reflux disease (19) Gout (20) Hernia (21) Hip pain (22) History of recent fall (23) Hyperlipidemia (24) Migraine (25) Neck pain (26) Rectal bleeding (27) renal insufficiency (28) Rib fractures (29) Seizure (30) Spinal stenosis (31) Sprain of knee (32) Status post fall (33) Unexplained night sweats Surgical Problems: (1) back surgery (2) Cholecystectomy (3) History of appendectomy (4) History of arthroplasty of left knee (5) Hysterectomy (6) neck surgery (7) Status post total left knee replacement Family History Cancer FHx: neurologic disorder Heart disease Hypertension Kidney disease Other kidney diseases Seizures Social History Smoking Status: Never Smoker Alcohol Use: none Drug Use: none Marital Status: single Housing Status: lives alone Occupation Status: retired Current/Historical Medications Scheduled Apixaban (Eliquis), 5 MG PO BID Ascorbic Acid (Vitamin C), 500 MG PO QAM Docusate Sodium (Colace), 1 CAP PO BID Ferrous Sulfate (Kp Ferrous Sulfate), 325 TAB PO BIDM Fluticasone Propionate (Nasal) (Flonase Allergy Relief), 2 SPRAY MORIS QAM Furosemide (Lasix), 20 MG PO QAM Lamotrigine (Lamictal), 300 MG PO Q12 Levetiractam (Levetiracetam), 500 MG PO BID Lorazepam (Ativan), 0.5 MG PO BID Magnesium Oxide (Mag-Ox), 400 MG PO BID Metoclopramide Hcl (Metoclopramide Hcl), 5 MG PO BID Multiple Vitamins W/ Minerals (Multi Vitamin and Mineral), 1 TAB PO DAILY Pantoprazole Sodium (Protonix), 40 MG PO BID Potassium Chloride Microencaps (Potassium Chloride Er), 20 MEQ PO QAM Senna/Docusate Sod (Senokot S), 1 TAB PO HS Sulfa/Trimethoprim (Bactrim Ds 800MG/160MG), 1 TAB PO QAM Topiramate (Topiramate), 100 MG PO BID Scheduled PRN Hydrocodone/Acetaminophen 10MG/325MG ([place] 10MG/325MG), 1 TAB PO Q4H PRN for Pain Allergies Coded Allergies: Adhesives (Verified Adverse Reaction, Unknown, ITCHY, 07/01/17) Physical Exam Vital Signs Date Time Temp Pulse Resp B/P (MAP) Pulse Ox O2 Delivery O2 Flow Rate FiO2 07/02/17 02:38 88 18 129/75 94 Room Air 07/01/17 23:02 37.0 95 18 166/70 96 Room Air Physical Exam GENERAL: Awake, alert, chronically ill-appearing, in no acute distress HENT: Normocephalic, atraumatic. Dry mucus membranes. EYES: Normal conjunctiva. Sclera non-icteric. NECK: Supple. No nuchal rigidity. FROM. No JVD. RESPIRATORY: Clear to auscultation. CARDIAC: Regular rate, normal rhythm. Extremities warm and well perfused. Pulses equal. ABDOMEN: Obese. Soft, non-distended. No tenderness to palpation. No rebound or guarding. No masses. Periumbilical hernia. RECTAL: Deferred. MUSCULOSKELETAL: Chest examination reveals no tenderness. The back is symmetrical on inspection without obvious abnormality. There is no CVA tenderness to palpation. No joint edema. LOWER EXTREMITIES: Calves are equal size bilaterally and non-tender. LLE 3+ edema with erythema and warmth extending from distal upper leg down to the foot. There is fluctuance and induration at the distal aspect of the 15 cm prior incision site. Distal pulse and motor sensory intact. NEURO: Normal sensorium. No sensory or motor deficits noted. SKIN: No rash or jaundice noted. Medical Decision & Procedures ER Provider Diagnostic Interpretation: Radiology results as stated below per my review and radiologist interpretation: CHEST X-RAY: Findings: The results were interpreted by me. There is mild venous congestion, otherwise clear lungs. Cardiomegaly. L KNEE X-RAY: Findings: The results were interpreted by me. There is soft tissue swelling. No air or gas noted. Osseus structures and hardware are intact. US VENOUS LEFT LOWER EXTREMITY: Comparison with ultrasound 06/26/17. No DVT. Edema involving left popliteal fossa and calf. Limited evaluation of calf vessels due to body habitus and swelling. Radiologist: Gregory Rhodes M.D. Study ready at 02:48 and initial results transmitted at 03:08. Laboratory Results 07/02/17 00:32 Test 07/02/17 00:32 Erythrocyte Sedimentation Rate 38 mm/hr (0-21) Prothrombin Time 12.3 SECONDS (9.0-12.0) Prothromb Time International Ratio 1.1 (0.9-1.1) Anion Gap 10.0 mmol/L (3-11) Est Creatinine Clear Calc Drug Dose 65.0 ml/min Estimated GFR () 59.7 Estimated GFR (Non- 51.5 BUN/Creatinine Ratio 9.1 (10-20) Lactic Acid Level 0.8 mmol/L (0.4-2.0) Calcium Level 9.2 mg/dl (8.5-10.1) C-Reactive Protein 2.34 mg/dl (0-0.29) Laboratory results reviewed by me Medications Administered Medications (Trade) Dose Ordered Sig/Galileo Route Start Time Stop Time Status Last Admin Dose Admin Vancomycin HCl 2250 mg/Sodium Chloride 545 ml @ 200 mls/hr ONE STAT IV 07/02/17 00:06 07/02/17 02:49 DC 07/02/17 01:22 200 MLS/HR Piperacillin Sod/ Tazobactam Sod (Zosyn Iv) 4.5 gm NOW STAT IV 07/02/17 00:06 07/02/17 00:10 DC 07/02/17 05:32 4.5 GM Lorazepam (Ativan Inj) 0.5 mg NOW STAT IV 07/02/17 00:06 07/02/17 00:10 DC 07/02/17 01:21 0.5 MG Procedure BEDSIDE US: Diffuse cobblestoning consistent with cellulitis. 2-3 cm fluid collection in the distal aspect of the knee. ED Course 2345: The patient was evaluated in room B12B. A complete history and physical exam was performed. 0006: Ordered Ativan Inj 0.5 mg IV, Zosyn Iv 4.5 gm IV, Vancomycin HCl 2250 mg/ Sodium Chloride 545 ml @ 200 mls/hr IV. 0219: Discussed the patient's case with Dr. Peralta. 0237: Discussed the patient's case Dr. Ferrer. The patient will be evaluated for further treatment and disposition. Medical Decision I reviewed the patient's past medical history, medications, and the nursing notes as described above. Differential diagnoses include septic knee, cellulitis, abscess, DVT, early sepsis. Patient is a 67-year-old woman with a recent past medical history of a left total knee replacement and recent infection of surgical area presents to the emergency department with worsening left lower extremity erythema and warmth and pain since being discharged from rehabilitation yesterday per history of present illness. Arrival of the patient is in no acute distress. Afebrile with stable vital signs. Exam the patient has 3+ edema to the left lower extremity with warmth and induration and fluctuance on the distal aspect of the surgical site. Bedside ultrasound shows cobblestoning consistent with cellulitis as well as 2-3 cm fluid collection consistent with abscess at the distal aspect of surgical site. However considering the patient has had decreased overall mobility will additionally order a DVT study. ESR in the 38 and CRP 2.3. However, patient has most of her pain distal to her knee and is able to range her knee. Therefore I believe that joint infection is less likely , however, still in the differential and will need to be ruled out for infected joint in setting of recent total knee. Patient cultured. Broad spectrum antibiotics ordered. I discussed the case with orthopedics on-call who agrees with antibiotics and recommends calling the patient's surgeon in the morning. Otherwise considering the patient's comorbidities and worsening infection and possible involvement of a recent joint replacement will admit to medicine service for further management. Medication Reconcilliation Current Medication List: was personally reviewed by me Blood Pressure Screening Patient's blood pressure: Elevated blood pressure Blood pressure disposition: Elevated BP felt to be situational Consults Time Called: 213 Consulting Physician: Dr. Peralta- Orthopedic Returned Call: [phone] Discussed the patient's case with Dr. Peralta. Additional Consults: Time Called: 221 Consulted Physician: Dr. Ferrer- Internal Medicine Returned Call: [phone] Additional Comments: Discussed the patient's case Dr. Ferrer. The patient will be evaluated for further treatment and disposition. Impression Primary Impression: Cellulitis and abscess of left leg Scribe Attestation The scribe's documentation has been prepared under my direction and personally reviewed by me in its entirety. I confirm that the note above accurately reflects all work, treatment, procedures, and medical decision making performed by me. Departure Information Dispostion Being Evaluated By Hospitalist Referrals Marcelo Escoto M.D. (PCP) Patient Instructions My [facility]
[2017-07-02 00:45] LABS: BASO % 0.4 %; BASO ABS # 0.04 K/uL (0-0.2); COMPLETE YES; EOS % 2.8 %; HEMATOCRIT 32.1 % (37-47); IG% 0.2 %; LYMPH % 15.7 %; MEAN CELL VOLUME 87.5 fL (80-100); MEAN CORPUSCULAR HEMOGLOBIN 28.6 pg (25-34); MEAN CORPUSCULAR HGB CONC 32.7 g/dl (32-36); MEAN PLATELET VOLUME 9.3 fL (7.4-10.4); MONO % 6.3 %; NEUT % 74.6 %; PLATELET COUNT 361 K/uL (130-400); RED BLOOD COUNT 3.67 M/uL (4.2-5.4); WHITE BLOOD COUNT 8.93 K/uL (4.8-10.8)
[2017-07-02 00:55] LABS: INR 1.1 (0.9-1.1); PROTHROMBIN TIME (PATIENT) 12.3 SECONDS (9.0-12.0)
[2017-07-02 01:07] LABS: BUN/CREATININE RATIO 9.1 (10-20); C-REACTIVE PROTEIN 2.34 mg/dl (0-0.29); CALCIUM 9.2 mg/dl (8.5-10.1); CREATININE 1.1 mg/dl (0.60-1.20); POTASSIUM 3.6 mmol/L (3.5-5.1)
[2017-07-02] MEDS ORDERED: POLYETHYLENE (MIRALAX) 17 GM PACK PO PRN (03:30)
[2017-07-02 04:05] VITALS: BP 121/77; PULSE 86; TEMP 36.8; O2SAT 96; Ht 170.2 cm; Wt 117.8 kg
[2017-07-02] MEDS: ACETAMINOPHEN 325 MG TAB PO PRN (04:46)
[2017-07-02] MEDS ORDERED: VANCOMYCIN CONSULT ACTIVE PRN (05:00)
[2017-07-02] MEDS ORDERED: PIPERACILL/TAZOBAC CONSULT ACTIVE PRN (05:00)
--- NOTE | 2017-07-02 05:24 | History and Physical ---
History & Physical Date & Time of Service: Jul 02, 2017 at 05:15 Chief Complaint: History Of Arthroplasty Of Left Knee, Left Leg Primary Care Physician: Marcelo Escoto M.D. History of Present Illness Source: patient, hospital records This is a 67 yo f that has a history of seizure disorder, A fibb on eliquis and s/p left knee arthroplasty that is presenting to us with swelling and erythema of the left knee. She states that over the past 24 hours she has had significant worsening of pain and is now unable to ambulate on the left leg. The swelling and redness she noted the morning before admission. The patient had undergone a left knee arthroplasty on Jun 19, [address] Figueroa. She denies any fever, chest pain, abdominal pain. She denies any drainage from the wound site. She has a lot of concern that she may lose her leg. Past Medical/Surgical History 1. Seizure disorder 2. PAF 3. GERD 4. Asthma 5. Anxiety 6. Allergic rhinitis Family History Cancer FHx: neurologic disorder Heart disease Hypertension Kidney disease Other kidney diseases Seizures Social History Smoking Status: Never Smoker Smokeless Tobacco Use: No Alcohol Use: none Drug Use: none Marital Status: single Housing status: lives alone Occupational Status: retired Immunizations History of Influenza Vaccine: Yes Influenza Vaccine Date: Sep 10, 2011 History of Tetanus Vaccine?: Yes Tetanus Immunization Date: Mar 07, 1997 History of Pneumococcal: Yes Pneumococcal Date: Sep 09, 2011 History of Hepatitis B Vaccine: No Hepatitis Immunization Date: Jul 01, 2006 Multi-Drug Resistant Organisms History of MDRO: No Allergies Coded Allergies: Adhesives (Verified Adverse Reaction, Unknown, ITCHY, 07/01/17) Home Medications Scheduled Apixaban (Eliquis), 5 MG PO BID Ascorbic Acid (Vitamin C), 500 MG PO QAM Cephalexin Monohydrate (Keflex), 500 MG PO QID Docusate Sodium (Colace), 1 CAP PO BID Ferrous Sulfate (Kp Ferrous Sulfate), 325 TAB PO BIDM Fluticasone Propionate (Nasal) (Flonase Allergy Relief), 2 SPRAY MORIS QAM Furosemide (Lasix), 20 MG PO QAM Lamotrigine (Lamictal), 300 MG PO Q12 Levetiractam (Levetiracetam), 500 MG PO BID Lorazepam (Ativan), 0.5 MG PO BID Magnesium Oxide (Mag-Ox), 400 MG PO BID Metoclopramide Hcl (Metoclopramide Hcl), 5 MG PO BID Multiple Vitamins W/ Minerals (Multi Vitamin and Mineral), 1 TAB PO DAILY Pantoprazole Sodium (Protonix), 40 MG PO BID Potassium Chloride Microencaps (Potassium Chloride Er), 20 MEQ PO QAM Senna/Docusate Sod (Senokot S), 1 TAB PO HS Sulfa/Trimethoprim (Bactrim Ds 800MG/160MG), 1 TAB PO BID Topiramate (Topiramate), 100 MG PO BID Scheduled PRN Hydrocodone/Acetaminophen 10MG/325MG ([place] 10MG/325MG), 1 TAB PO Q4H PRN for Pain Review of Systems Constitutional: No fever Eyes: No worsening of vision ENT: No hearing loss Respiratory: No cough, No sputum, No wheezing, No shortness of breath, No dyspnea on exertion, No dyspnea at rest Cardiovascular: No chest pain Abdomen: No pain, No nausea, No vomiting, No diarrhea, No constipation Musculoskeletal: + joint pain, + muscle pain, + swelling Genitourinary - Female: No dysuria Neurologic: + weakness, + balance problems, No numbness/tingling Psychiatric: No depression symptoms Endocrine: + fatigue Hematologic / Lymphatic: No abnormal bleeding/bruising Integumentary: No rash Physical Exam Vital Signs Date Time Temp Pulse Resp B/P (MAP) Pulse Ox O2 Delivery O2 Flow Rate FiO2 07/02/17 04:03 85 18 122/74 95 Room Air 07/02/17 02:38 88 18 129/75 94 Room Air 07/01/17 23:02 37.0 95 18 166/70 96 Room Air General Appearance: no apparent distress Head: normocephalic, atraumatic Eyes: normal inspection ENT: normal ENT inspection Neck: supple Respiratory/Chest: normal breath sounds, no respiratory distress, no accessory muscle use Cardiovascular: regular rate, rhythm, no murmur, normal peripheral pulses Abdomen/GI: normal bowel sounds, non tender, soft Back: no CVA tenderness Extremities/Musculoskelatal: + pertinent finding (significant swelling of the left LE, the left knee is erythematous surrounding the incision site, incision is clean dry and intact without any visible drainage, very tender to palpation, the left lower extremity is neurovascularly intact, limited ROM secondary to pain) Neurologic/Psych: alert, normal mood/affect, oriented x 3 Skin: normal color, warm/dry, no rash Lymphatic: no adenopathy Diagnostics Laboratory Results Results Past 24 Hours Test 07/02/17 00:32 07/02/17 05:08 Range/Units White Blood Count 8.93 4.8-10.8 K/uL Red Blood Count 3.67 4.2-5.4 M/uL Hemoglobin 10.5 12.0-16.0 g/dL Hematocrit 32.1 37-47 % Mean Corpuscular Volume 87.5 80-100 fL Mean Corpuscular Hemoglobin 28.6 25-34 pg Mean Corpuscular Hemoglobin Concent 32.7 32-36 g/dl Platelet Count 361 130-400 K/uL Mean Platelet Volume 9.3 7.4-10.4 fL Neutrophils (%) (Auto) 74.6 % Lymphocytes (%) (Auto) 15.7 % Monocytes (%) (Auto) 6.3 % Eosinophils (%) (Auto) 2.8 % Basophils (%) (Auto) 0.4 % Neutrophils # (Auto) 6.66 1.4-6.5 K/uL Lymphocytes # (Auto) 1.40 1.2-3.4 K/uL Monocytes # (Auto) 0.56 0.11-0.59 K/uL Eosinophils # (Auto) 0.25 0-0.5 K/uL Basophils # (Auto) 0.04 0-0.2 K/uL RDW Standard Deviation 49.4 36.4-46.3 fL RDW Coefficient of Variation 15.5 11.5-14.5 % Immature Granulocyte % (Auto) 0.2 % Immature Granulocyte # (Auto) 0.02 0.00-0.02 K/uL Erythrocyte Sedimentation Rate 38 0-21 mm/hr Prothrombin Time 12.3 9.0-12.0 SECONDS Prothromb Time International Ratio 1.1 0.9-1.1 Sodium Level 142 136-145 mmol/L Potassium Level 3.6 3.5-5.1 mmol/L Chloride Level 109 98-107 mmol/L Carbon Dioxide Level 23 21-32 mmol/L Anion Gap 10.0 3-11 mmol/L Blood Urea Nitrogen 10 7-18 mg/dl Creatinine 1.10 0.60-1.20 mg/dl Est Creatinine Clear Calc Drug Dose 65.0 ml/min Estimated GFR () 59.7 Estimated GFR (Non- 51.5 BUN/Creatinine Ratio 9.1 10-20 Random Glucose 109 70-99 mg/dl Lactic Acid Level 0.8 0.4-2.0 mmol/L Calcium Level 9.2 8.5-10.1 mg/dl C-Reactive Protein 2.34 0-0.29 mg/dl Microbiology Results 07/02/17 Blood Culture, Received Pending 07/02/17 Blood Culture, Received Pending Impression Assessment and Plan This is a 67 yo f with a history of seizure disorder, a fibb on eliquis and s/p left arthroplasty suffering from left knee cellulitis Left knee cellulitis secondary to post op complication - patient does not meet SIRS criteria and hemodynamically stable; med surg admission - consult ortho - consult ID as the patient has complicated infection involving the joint - Empirically treat with Zosyn and Vanco - hydrocodone for pain control - currently NPO except meds Seizure disorder - continue topiramate, Lamictal, levetiracetam GERD - continue protonix A fibb; using eliquis - for now will hold eliquis - no DVT in the left LE Anxiety - Ativan bid DVT Prophylaxis SCD on the unaffected leg Attending Addendum: I have physically seen and examined this patient, have supervised the medical residents activities, and agree with the H&P as noted above with the following exceptions as noted. The patient presents to the emergency department with worsening pain, swelling and redness of her left knee and leg that she noted the morning of admission. She is status post left knee arthroplasty on 06/19/[address] Figueroa. The patient denies chest pain, palpitations, shortness of breath, cough, sore throat, fevers, chills, sweats, weight change, fatigue, nausea, vomiting, abdominal pain, pelvic pain, blood in urine or stool, dysuria, urinary frequency or urgency, lightheadedness, dizziness, headache, memory loss, abnormal bleeding, generalized weakness, back or neck pain, night sweats, or allergy symptoms. The review of systems is otherwise negative other than for that already noted above, and at least 10 systems have been reviewed. The patient is awake, well-developed and adequately nourished, alert and oriented 3, normocephalic and atraumatic, lying in bed and in no acute distress. HEENT--PERRL, EOMI, mucous membranes and oropharynx dry. Neck--supple, no JVD or bruits, thyroid normal, trachea midline, no adenopathy. Heart--normal S1 and S2, no extra beats, no murmurs, rubs or gallops. Lungs--clear bilaterally with good air movement, no respiratory distress, no accessory muscle use. Abdomen--normal bowel sounds and soft, nontender and nondistended, no hernias or masses, no organomegaly. Extremities--right lower extremity with no cyanosis, clubbing or edema. Left lower extremity with significant swelling, erythema and reproducible pain centered around knee. There are good distal pulses b/l. Dermatologic--normal skin turgor, normal color, warm and dry, no abnormal lymph nodes, no rash. Neurologic--cranial nerves II through XII grossly intact, motor and sensory examination normal. Rheumatologic--decreased range of motion of the left knee due to swelling. Psychiatric--normal affect. Assessment and Plan: 1. Left knee cellulitis postop left total knee arthroplasty from 06/19/2017-- the patient be admitted to medical surgical floor. Empiric treatment vancomycin IV and Zosyn IV. Consult infectious disease. Patient has had history of joint infection in the past. Hydrocodone for moderate pain, and morphine IV for severe pain. Nothing by mouth status except medications. 2. Seizure disorder-- continue to appear may, Lamictal and Keppra. 3. Atrial fibrillation/hypertension--hold Eliquis until left leg status determined. Level of Care Med/Surg Advanced Directives Existing Advance Directive: No Existing Living Will: No Existing Power of Ceramic Tile Installer: No Resuscitation Status FULL RESUSCITATION VTE Prophylaxis VTE Risk Assessment Done? Y/N: Yes Risk Level: Moderate Given or contraindicated: SCD's Social Service Consult None Apply Note Total Time: Critical Care 30 - 74 minutes Additional Copies To Marcelo Escoto M.D.
--- NOTE | 2017-07-02 06:15 | Pharmacy Progress Note ---
Pharmacy Antibiotic Consult Date of Service: Jul 02, 2017. Pharmacy Dosing Scope * Pharmacy is consulted to initiate Vancomycin IV dosing therapy, order appropriate labs and adjust drug dose/frequency. Subjective * The patient is a 67 year old female admitted on Jul 02, 2017 at 03:27 for c/o left knee swelling. She had arthroplasty of left knee at [facility] on 06/19/17. Objective Height (Feet): 5 Height (Inches): 7.00 Weight (Kilograms): 117.800 Lab Results (24hrs): Test 07/02/17 00:32 07/02/17 05:08 White Blood Count 8.93 K/uL (4.8-10.8) Red Blood Count 3.67 M/uL (4.2-5.4) Hemoglobin 10.5 g/dL (12.0-16.0) Hematocrit 32.1 % (37-47) Mean Corpuscular Volume 87.5 fL (80-100) Mean Corpuscular Hemoglobin 28.6 pg (25-34) Mean Corpuscular Hemoglobin Concent 32.7 g/dl (32-36) Platelet Count 361 K/uL (130-400) Mean Platelet Volume 9.3 fL (7.4-10.4) Neutrophils (%) (Auto) 74.6 % Lymphocytes (%) (Auto) 15.7 % Monocytes (%) (Auto) 6.3 % Eosinophils (%) (Auto) 2.8 % Basophils (%) (Auto) 0.4 % Neutrophils # (Auto) 6.66 K/uL (1.4-6.5) Lymphocytes # (Auto) 1.40 K/uL (1.2-3.4) Monocytes # (Auto) 0.56 K/uL (0.11-0.59) Eosinophils # (Auto) 0.25 K/uL (0-0.5) Basophils # (Auto) 0.04 K/uL (0-0.2) RDW Standard Deviation 49.4 fL (36.4-46.3) RDW Coefficient of Variation 15.5 % (11.5-14.5) Immature Granulocyte % (Auto) 0.2 % Immature Granulocyte # (Auto) 0.02 K/uL (0.00-0.02) Erythrocyte Sedimentation Rate 38 mm/hr (0-21) Prothrombin Time 12.3 SECONDS (9.0-12.0) Prothromb Time International Ratio 1.1 (0.9-1.1) Sodium Level 142 mmol/L (136-145) Potassium Level 3.6 mmol/L (3.5-5.1) Chloride Level 109 mmol/L (98-107) Carbon Dioxide Level 23 mmol/L (21-32) Anion Gap 10.0 mmol/L (3-11) Blood Urea Nitrogen 10 mg/dl (7-18) Creatinine 1.10 mg/dl (0.60-1.20) Est Creatinine Clear Calc Drug Dose 65.0 ml/min Estimated GFR () 59.7 Estimated GFR (Non- 51.5 BUN/Creatinine Ratio 9.1 (10-20) Random Glucose 109 mg/dl (70-99) Lactic Acid Level 0.8 mmol/L (0.4-2.0) Calcium Level 9.2 mg/dl (8.5-10.1) C-Reactive Protein 2.34 mg/dl (0-0.29) Micro Results: * Blood levels are pending Recent Pertinent Medications * Pt is also receiving Zosyn IV Assessment & Plan * Loading dose: 2250 mg IV (~ 19mg/kg) X 1 dose in the ED then will dose at ~ 15mg/kg = 1800mg IV every 16 hours. * Goal trough level estimate: between 16-18 mcg/mL. * Trough level is ordered for 2330 on 07/03/17. Pharmacy will continue to follow and will adjust dose/frequency as necessary. Thank you
--- NOTE | 2017-07-02 06:45 | DIAGNOSTIC IMAGING REPORT ---
LEFT VENOUS DOPP LOWER EXT UNILAT CLINICAL HISTORY: swelling pain. Edema. TECHNIQUE: Venous Doppler COMPARISON STUDY: 06/26/2017 FINDINGS: Negative study IMPRESSION: Negative study. Soft tissue edema described previously. The above report was generated using voice recognition software. It may contain grammatical, syntax or spelling errors. Electronically signed by: Liu Collins M.D. 07/02/2017 6:43 AM Dictated Date/Time: 07/02/2017 6:42 AM
[2017-07-02 06:58] VITALS: BP 116/75; PULSE 88; TEMP 36.6; O2SAT 97
[2017-07-02 07:02] LABS: BASO % 0.5 %; BASO ABS # 0.04 K/uL (0-0.2); COMPLETE YES; EOS % 3.7 %; HEMATOCRIT 31.4 % (37-47); IG% 0.1 %; LYMPH % 18.1 %; LYMPH ABS # 1.43 K/uL (1.2-3.4); MEAN CORPUSCULAR HEMOGLOBIN 28.6 pg (25-34); MEAN CORPUSCULAR HGB CONC 32.2 g/dl (32-36); MEAN PLATELET VOLUME 9.7 fL (7.4-10.4); MONO % 7.6 %; PLATELET COUNT 331 K/uL (130-400); RED BLOOD COUNT 3.53 M/uL (4.2-5.4); WHITE BLOOD COUNT 7.88 K/uL (4.8-10.8)
--- NOTE | 2017-07-02 07:02 | DIAGNOSTIC IMAGING REPORT ---
LEFT KNEE 1 OR 2 VIEWS ROUTINE CLINICAL HISTORY: 67 years-old Female presenting with PAIN AND SWELLING, recent surgery. TECHNIQUE: Frontal and lateral views of the left knee were obtained. COMPARISON: 06/19/2017. FINDINGS: Postsurgical changes of total left knee replacement with patellar resurfacing. Normal anatomic alignment. Apparent osteolytic change in the lateral tibial plateau, where there is poor contact between the lateral tibial prosthetic component and the underlying trabecular bone. Evaluation is somewhat limited by the patient's body habitus and diffuse soft tissue swelling. Diffuse subcutaneous edema. IMPRESSION: Apparent osteolytic change in the lateral tibial plateau. This is nonspecific and could represent loosening or infection. Evaluation is somewhat limited by the patient's body habitus and diffuse soft tissue swelling. Further evaluation with cross-sectional imaging to be considered. Electronically signed by: Shree Ritter M.D. 07/02/2017 7:00 AM Dictated Date/Time: 07/02/2017 6:58 AM
--- NOTE | 2017-07-02 07:14 | DIAGNOSTIC IMAGING REPORT ---
CHEST ONE VIEW PORTABLE CLINICAL HISTORY: 67 years-old Female presenting with fever. TECHNIQUE: Portable upright AP view of the chest was obtained. COMPARISON: 03/14/2017. FINDINGS: Mediastinal and epigastric surgical clips again noted. Cardiac silhouette remains mildly enlarged. Lungs and pleural spaces clear. Anterior cervical fusion hardware noted. IMPRESSION: 1. Stable mild cardiomegaly. No convincing evidence of acute cardiopulmonary disease. Electronically signed by: Shree Ritter M.D. 07/02/2017 7:13 AM Dictated Date/Time: 07/02/2017 7:11 AM
[2017-07-02] MEDS: LORAZEPAM 0.5 MG TAB PO SCH ×2 (08:49→20:36)
[2017-07-02] MEDS: FLUTICASONE PROPIONATE NA SPR 16 GM BTL NAE SCH (08:50)
[2017-07-02] MEDS: DOCUSATE SODIUM 100 MG CAP PO SCH ×2 (08:50→20:36)
[2017-07-02] MEDS: FERROUS SULFATE 325 MG TAB PO SCH ×2 (08:51→17:56)
[2017-07-02] MEDS: LEVETIRACETAM 500 MG TAB PO SCH ×2 (08:51→20:36)
--- NOTE | 2017-07-02 08:53 | Orthopedic Consultation ---
Orthopedic Consultation Date of Consultation: Jul 02, 2017. Attending Physician: Hector Hammer MD, PhD Reason for Consultation: Left knee pain and swelling (He Menjivar PA-C) History of Present Illness Andriy is a 67 year old female patient of Dr. Moreno from [facility]. She is s/p Left TKA by Dr. Figueroa on 06/19/17. Seen last week in Dr. Figueroa's office at [facility] for post-operative check and evaluation. Reported high levels of pain at that appointment but overall seemed to be doing very well and was not in obvious discomfort. [place] were removed at her recent post-op visit and range of motion easily reached 90 degrees of flexion. She was sent for an ultrasound of the left lower extremity at the [facility] last week to rule out DVT. Our intraoffice evaluation of Andriy was positive and there seemed to be some discrepancy between her HPI and our objective findings regarding "pain, swelling, redness." Andriy currently denies any numbness or tingling distally, new/worsening left calf pain, drainage from her incision. She reports improvement with her left knee pain this morning and denies fever/chills. (He Menjivar PA-C) Patient is complaining of difficulty ambulating due to the swelling in her leg and foot. (Kurt Figueroa MD) Past Medical/Surgical History Medical Problems: (1) Atrial flutter Status: Acute (2) Back strain Status: Acute (3) Bloody stool Status: Acute (4) Cellulitis and abscess of left leg Status: Acute (5) Diffuse pain Status: Acute (6) Epigastric abdominal pain Status: Acute (7) Forearm abrasion Status: Acute (8) Headache Status: Acute (9) Headache Status: Acute (10) Headache above the eye region Status: Acute (11) Hypertension Status: Acute (12) Left against medical advice Status: Acute (13) Left sided chest pain Status: Acute (14) Left sided chest pain Status: Acute (15) Lower abdominal pain Status: Acute (16) Malaise Status: Acute (17) Sore throat Status: Acute (18) Spasm of back muscles Status: Acute (19) Substernal chest pain Status: Acute (He Menjivar PA-C) Family History Cancer FHx: neurologic disorder Heart disease Hypertension Kidney disease Other kidney diseases Seizures (He Menjivar PA-C) Cancer FHx: neurologic disorder Heart disease Hypertension Kidney disease Other kidney diseases Seizures (Kurt Figueroa MD) Social History Smoking Status: Never Smoker Smokeless Tobacco Use: No Alcohol Use: none Drug Use: none Marital Status: single Housing Status: lives alone Occupation Status: retired (He Menjivar PA-C) Allergies Coded Allergies: Adhesives (Verified Adverse Reaction, Unknown, ITCHY, 07/01/17) Home Medications Scheduled Apixaban (Eliquis), 5 MG PO BID Ascorbic Acid (Vitamin C), 500 MG PO QAM Docusate Sodium (Colace), 1 CAP PO BID Ferrous Sulfate (Kp Ferrous Sulfate), 325 TAB PO BIDM Fluticasone Propionate (Nasal) (Flonase Allergy Relief), 2 SPRAY MORIS QAM Furosemide (Lasix), 20 MG PO QAM Lamotrigine (Lamictal), 300 MG PO Q12 Levetiractam (Levetiracetam), 500 MG PO BID Lorazepam (Ativan), 0.5 MG PO BID Magnesium Oxide (Mag-Ox), 400 MG PO BID Metoclopramide Hcl (Metoclopramide Hcl), 5 MG PO BID Multiple Vitamins W/ Minerals (Multi Vitamin and Mineral), 1 TAB PO DAILY Pantoprazole Sodium (Protonix), 40 MG PO BID Potassium Chloride Microencaps (Potassium Chloride Er), 20 MEQ PO QAM Senna/Docusate Sod (Senokot S), 1 TAB PO HS Sulfa/Trimethoprim (Bactrim Ds 800MG/160MG), 1 TAB PO QAM Topiramate (Topiramate), 100 MG PO BID Scheduled PRN Hydrocodone/Acetaminophen 10MG/325MG ([place] 10MG/325MG), 1 TAB PO Q4H PRN for Pain Current Inpatient Medications Current Inpatient Medications Medications (Trade) Dose Ordered Sig/Galileo Route Start Time Stop Time Status Last Admin Dose Admin Acetaminophen (Tylenol Tab) 650 mg Q4H PRN PO 07/02/17 03:30 08/01/17 03:29 07/02/17 04:46 650 MG Polyethylene (Miralax Powder Packet) 17 gm DAILY PRN PO 07/02/17 03:30 08/01/17 03:29 Ondansetron HCl (Zofran Inj) 4 mg Q6H PRN IV 07/02/17 03:30 08/01/17 03:29 Piperacillin Sod/ Tazobactam Sod 3.375 gm/Dextrose 115 ml @ 28.75 mls/ hr Q8H IV 07/02/17 10:00 07/12/17 09:59 Piperacillin Sod/ Tazobactam Sod (Consult) 1 ea UD PRN N/A 07/02/17 05:00 08/01/17 04:59 Vancomycin HCl (Consult) 1 ea UD PRN N/A 07/02/17 05:00 08/01/17 04:59 Vancomycin HCl 1800 mg/Sodium Chloride 536 ml @ 200 mls/hr Q16H IV 07/02/17 16:00 07/12/17 15:59 Ascorbic Acid (Vitamin C Tab) 500 mg QAM PO 07/02/17 09:00 08/01/17 08:59 Docusate Sodium (coLACE CAP) 100 mg BID PO 07/02/17 09:00 08/01/17 08:59 Fluticasone Propionate (Flonase Nasal [place]) 1 sprays QAM MORIS 07/02/17 09:00 08/01/17 08:59 Furosemide (Lasix Tab) 20 mg QAM PO 07/02/17 09:00 08/01/17 08:59 Acetaminophen/ Hydrocodone Bitart ([place] 10/325 Tab) 1 tab Q4H PRN PO 07/02/17 05:15 07/16/17 05:14 Lamotrigine (Lamictal Tab) 300 mg Q12 PO 07/02/17 09:00 08/01/17 08:59 Levetiracetam (Keppra Tab) 500 mg BID PO 07/02/17 09:00 08/01/17 08:59 Lorazepam (Ativan Tab) 0.5 mg BID PO 07/02/17 09:00 08/01/17 08:59 Magnesium Oxide (Mag-Ox Tab) 400 mg BID PO 07/02/17 09:00 08/01/17 08:59 Metoclopramide HCl (Reglan Tab) 5 mg BID PO 07/02/17 09:00 08/01/17 08:59 Multivitamins/ Minerals (Multivitamin W/ Minerals Tab) 1 tab DAILY PO 07/02/17 09:00 08/01/17 08:59 Pantoprazole Sodium (Protonix Tab) 40 mg BID PO 07/02/17 09:00 08/01/17 08:59 Potassium Chloride (Klor-Con Tab) 20 meq QAM PO 07/02/17 09:00 08/01/17 08:59 Senna/Docusate Sodium (Senokot S Tab) 1 tab HS PO 07/02/17 21:00 08/01/17 20:59 Topiramate (Topamax Tab) 100 mg BID PO 07/02/17 09:00 08/01/17 08:59 Ferrous Sulfate (Feosol Tab) 325 mg BIDM PO 07/02/17 08:30 08/01/17 08:29 (He Menjivar PA-C) Review of Systems Constitutional: + problem reported (pain, swelling, redness left knee), No fever, No chills, No sweats, No weight loss Respiratory: No cough, No sputum, No wheezing, No shortness of breath, No dyspnea on exertion, No dyspnea at rest, No hemoptysis, No problem reported Cardiovascular: No chest pain, No orthopnea, No PND, No edema, No claudication , No palpitations, No problem reported Abdomen: No pain, No nausea, No vomiting, No diarrhea, No constipation, No GI bleeding, No problem reported Musculoskeletal: + joint pain, + swelling, + problem reported ("redness") Integumentary: + color change (He Menjivar PA-C) Physical Exam Date Time Temp Pulse Resp B/P (MAP) Pulse Ox O2 Delivery O2 Flow Rate FiO2 07/02/17 06:58 36.6 88 18 116/75 (89) 97 Room Air 07/02/17 04:05 36.8 86 18 121/77 96 Room Air 07/02/17 04:03 85 18 122/74 95 Room Air 07/02/17 02:38 88 18 129/75 94 Room Air 07/01/17 23:02 37.0 95 18 166/70 96 Room Air General Appearance: no apparent distress (Patient sleeping upon entering her room, easily waken, does not appear to be in any type of significant discomfort) Head: normocephalic, atraumatic Eyes: normal inspection ENT: normal ENT inspection Extremities/Musculoskelatal: normal capillary refill (under 2 seconds), normal range of motion (no changes from last week's office visit, is able to actively flex upwards of 90 degrees, still has some difficulty with straight leg raise), + calf tenderness (tenderness noted in her left calf, ultrasound last week ruled -out DVT), + swelling (swelling note left lower extremity but does not appear to be unchanged from last week's visit) Neurologic/Psych: no motor/sensory deficits, alert, normal mood/affect ( baseline), oriented x 3 Skin: warm/dry, no rash, + pertinent finding (mild erythema at best anterior aspect left lower leg, no issues siva-incisionally regarding drainage, opening, ecchymosis) (He Menjivar, PA-C) LLE: incision is clean, dry, intact. Steri-Strips remain in place for most of the incision. Her range of motion 0-85. Obvious swelling of the lower leg is unchanged from Sunday. Trace effusion. No erythema. Calf is tender to palpation. (Kurt Figueroa MD) Laboratory Results Last 24 Hours Test 07/02/17 00:32 07/02/17 06:25 White Blood Count 8.93 K/uL 7.88 K/uL Red Blood Count 3.67 M/uL 3.53 M/uL Hemoglobin 10.5 g/dL 10.1 g/dL Hematocrit 32.1 % 31.4 % Mean Corpuscular Volume 87.5 fL 89.0 fL Mean Corpuscular Hemoglobin 28.6 pg 28.6 pg Mean Corpuscular Hemoglobin Concent 32.7 g/dl 32.2 g/dl Platelet Count 361 K/uL 331 K/uL Mean Platelet Volume 9.3 fL 9.7 fL Neutrophils (%) (Auto) 74.6 % 70.0 % Lymphocytes (%) (Auto) 15.7 % 18.1 % Monocytes (%) (Auto) 6.3 % 7.6 % Eosinophils (%) (Auto) 2.8 % 3.7 % Basophils (%) (Auto) 0.4 % 0.5 % Neutrophils # (Auto) 6.66 K/uL 5.51 K/uL Lymphocytes # (Auto) 1.40 K/uL 1.43 K/uL Monocytes # (Auto) 0.56 K/uL 0.60 K/uL Eosinophils # (Auto) 0.25 K/uL 0.29 K/uL Basophils # (Auto) 0.04 K/uL 0.04 K/uL RDW Standard Deviation 49.4 fL 49.9 fL RDW Coefficient of Variation 15.5 % 15.5 % Immature Granulocyte % (Auto) 0.2 % 0.1 % Immature Granulocyte # (Auto) 0.02 K/uL 0.01 K/uL Erythrocyte Sedimentation Rate 38 mm/hr Prothrombin Time 12.3 SECONDS Prothromb Time International Ratio 1.1 Sodium Level 142 mmol/L Potassium Level 3.6 mmol/L Chloride Level 109 mmol/L Carbon Dioxide Level 23 mmol/L Anion Gap 10.0 mmol/L Blood Urea Nitrogen 10 mg/dl Creatinine 1.10 mg/dl Est Creatinine Clear Calc Drug Dose 65.0 ml/min Estimated GFR () 59.7 Estimated GFR (Non- 51.5 BUN/Creatinine Ratio 9.1 Random Glucose 109 mg/dl Lactic Acid Level 0.8 mmol/L Calcium Level 9.2 mg/dl C-Reactive Protein 2.34 mg/dl (He Menjivar, HORACIO) Assessment & Plan Left lower extremity pain and swelling s/p Left TKA 06/19/17 Today's findings were discussed with Andriy. I am not impressed regarding the mild erythema of the left lower extremity. She has notable swelling and this has been reported and monitored post-operatively, but her erythema is not significant nor represents an infectious process. Her calf pain and swelling has been further investigated with an ultrasound, which was negative. She continues her Eliquis. Her incision continues to look great. Andriy's pain appears to be very well controlled, even though she reports higher levels on a pain scale. IV antibiotics are currently running and I will discuss this further with Dr. Figueroa to determine if this is warranted. I believe PT/OT can continue along with her home medications. Continue pain control, ice, elevation , and WBAT left lower extremity with a walker and assist. I will order AV impulse boots and OC stockings for mechanical DVT prophylaxis. I will place a diet order accordingly if approved by Dr. Figueroa. Any further questions or concerns please notify [facility]. Thank you for this consultation. (He Menjivar, HORACIO) I, Dr. Figueroa, saw and examined the patient and discussed the management with the fellow. I reviewed the fellows note and agree with the documented findings and the plan of care we developed. At this time, it does not appear that there is an infection related to her total knee prosthesis. She may continue with weightbearing as tolerated using a walker. The Steri-Strips will fall off on their own. Once she is discharged from the hospital, it may be preferable for her to go home where she can utilize her home compression device to help with her edema. She will need in home PT. She will follow-up with me in one week. I will continue to follow her while she is in the hospital.. (Kurt Figueroa MD)
[2017-07-02] MEDS: FUROSEMIDE 20 MG TAB PO SCH (08:55)
[2017-07-02] MEDS: POTASSIUM CHLORIDE 20 MEQ TABCR PO SCH (08:55)
[2017-07-02] MEDS: MAGNESIUM OXIDE 400 MG TAB PO SCH ×2 (08:55→20:36)
[2017-07-02] MEDS: TOPIRAMATE 100 MG TAB PO SCH ×2 (08:56→20:37)
[2017-07-02] MEDS: CEROVITE ADV FORMULA TAB PO SCH (08:56)
[2017-07-02] MEDS: METOCLOPRAMIDE HCL 5 MG TAB PO SCH ×2 (08:56→20:37)
[2017-07-02] MEDS: PANTOprazole SOD 40 MG TAB PO SCH ×2 (08:56→20:37)
[2017-07-02] MEDS: ASCORBIC ACID 500 MG TAB PO SCH (08:57)
[2017-07-02] MEDS ORDERED: VANCOMYCIN INJ 1,000 MG in SODIUM CHLORIDE 0.9% 250ML 250 ML IV SCH (09:00)
[2017-07-02] MEDS: PIPERACILL/TAZOBAC IV 3.375 GM in DEXTROSE 5% 100ML 100 ML IV SCH ×2 (09:57→17:57)
--- NOTE | 2017-07-02 11:41 | Hospitalist Progress Note ---
Hospitalist Progress Note Date of Service Jul 02, 2017. Subjective Pt evaluation today including: conversation w/ patient, physical exam, chart review, lab review, review of studies, review of inpatient medication list Voiding: no voiding problems, no incontinence Patient feeling well this AM. Although anxious/tearful about her knee. Eating and drinking OK. [facility] States she was doing well until yesterday when LLE became increasingly painful, tender, and red. Notes +purulent drainage from incision site. Patient denies any fever, chills, sweats, lightheadedness, dizziness, vision changes, CP, palpitations, edema, SOB, wheezing, cough, abdominal pain, nausea, vomiting, diarrhea, urinary symptoms, melena, numbness/tingling, weakness, depression, active bleeding. Medications Current Inpatient Medications Medications (Trade) Dose Ordered Sig/Galileo Route Start Time Stop Time Status Last Admin Dose Admin Acetaminophen (Tylenol Tab) 650 mg Q4H PRN PO 07/02/17 03:30 08/01/17 03:29 07/02/17 04:46 650 MG Polyethylene (Miralax Powder Packet) 17 gm DAILY PRN PO 07/02/17 03:30 08/01/17 03:29 Ondansetron HCl (Zofran Inj) 4 mg Q6H PRN IV 07/02/17 03:30 08/01/17 03:29 Piperacillin Sod/ Tazobactam Sod 3.375 gm/Dextrose 115 ml @ 28.75 mls/ hr Q8H IV 07/02/17 10:00 07/12/17 09:59 07/02/17 09:57 28.75 MLS/HR Piperacillin Sod/ Tazobactam Sod (Consult) 1 ea UD PRN N/A 07/02/17 05:00 08/01/17 04:59 Vancomycin HCl (Consult) 1 ea UD PRN N/A 07/02/17 05:00 08/01/17 04:59 Ascorbic Acid (Vitamin C Tab) 500 mg QAM PO 07/02/17 09:00 08/01/17 08:59 07/02/17 08:57 500 MG Docusate Sodium (coLACE CAP) 100 mg BID PO 07/02/17 09:00 08/01/17 08:59 07/02/17 08:50 100 MG Fluticasone Propionate (Flonase Nasal [place]) 1 sprays QAM MORIS 07/02/17 09:00 08/01/17 08:59 07/02/17 08:50 1 SPRAYS Furosemide (Lasix Tab) 20 mg QAM PO 07/02/17 09:00 08/01/17 08:59 07/02/17 08:55 20 MG Acetaminophen/ Hydrocodone Bitart ([place] 10/325 Tab) 1 tab Q4H PRN PO 07/02/17 05:15 07/16/17 05:14 Lamotrigine (Lamictal Tab) 300 mg Q12 PO 07/02/17 09:00 08/01/17 08:59 07/02/17 08:54 300 MG Levetiracetam (Keppra Tab) 500 mg BID PO 07/02/17 09:00 08/01/17 08:59 07/02/17 08:51 500 MG Lorazepam (Ativan Tab) 0.5 mg BID PO 07/02/17 09:00 08/01/17 08:59 07/02/17 08:49 0.5 MG Magnesium Oxide (Mag-Ox Tab) 400 mg BID PO 07/02/17 09:00 08/01/17 08:59 07/02/17 08:55 400 MG Metoclopramide HCl (Reglan Tab) 5 mg BID PO 07/02/17 09:00 08/01/17 08:59 07/02/17 08:56 5 MG Multivitamins/ Minerals (Multivitamin W/ Minerals Tab) 1 tab DAILY PO 07/02/17 09:00 08/01/17 08:59 07/02/17 08:56 1 TAB Pantoprazole Sodium (Protonix Tab) 40 mg BID PO 07/02/17 09:00 08/01/17 08:59 07/02/17 08:56 40 MG Potassium Chloride (Klor-Con Tab) 20 meq QAM PO 07/02/17 09:00 08/01/17 08:59 07/02/17 08:55 20 MEQ Senna/Docusate Sodium (Senokot S Tab) 1 tab HS PO 07/02/17 21:00 08/01/17 20:59 Topiramate (Topamax Tab) 100 mg BID PO 07/02/17 09:00 08/01/17 08:59 07/02/17 08:56 100 MG Ferrous Sulfate (Feosol Tab) 325 mg BIDM PO 07/02/17 08:30 08/01/17 08:29 07/02/17 08:51 325 MG Vancomycin HCl 1500 mg/Sodium Chloride 530 ml @ 200 mls/hr Q16H IV 07/02/17 16:00 07/12/17 15:59 Objective Vital Signs Date Time Temp Pulse Resp B/P (MAP) Pulse Ox O2 Delivery O2 Flow Rate FiO2 07/02/17 07:30 Room Air 07/02/17 06:58 36.6 88 18 116/75 (89) 97 Room Air 07/02/17 04:05 36.8 86 18 121/77 96 Room Air 07/02/17 04:03 85 18 122/74 95 Room Air 07/02/17 02:38 88 18 129/75 94 Room Air 07/01/17 23:02 37.0 95 18 166/70 96 Room Air Physical Exam General Appearance: no apparent distress, + obese Eyes: normal inspection, PERRL ENT: hearing grossly normal Neck: supple Respiratory/Chest: lungs clear, no respiratory distress, no accessory muscle use Cardiovascular: + systolic murmur, + irregularly irregular (rate controlled) Abdomen: normal bowel sounds, non tender, soft Extremities: + swelling (+1-2 pitting edema of LLE), + pertinent finding (Mild erythema noted to LLE anterior/lateral foote region; incision site intact, clean/ dry with no obvious erythema/drainage) Neurologic/Psychiatric: alert, oriented x 3, + pertinent finding (anxious/ tearful ) Skin: normal color, warm/dry, no rash Laboratory Results Last 24 Hours Test 07/02/17 00:32 07/02/17 06:25 07/02/17 09:54 White Blood Count 8.93 K/uL 7.88 K/uL Red Blood Count 3.67 M/uL 3.53 M/uL Hemoglobin 10.5 g/dL 10.1 g/dL Hematocrit 32.1 % 31.4 % Mean Corpuscular Volume 87.5 fL 89.0 fL Mean Corpuscular Hemoglobin 28.6 pg 28.6 pg Mean Corpuscular Hemoglobin Concent 32.7 g/dl 32.2 g/dl Platelet Count 361 K/uL 331 K/uL Mean Platelet Volume 9.3 fL 9.7 fL Neutrophils (%) (Auto) 74.6 % 70.0 % Lymphocytes (%) (Auto) 15.7 % 18.1 % Monocytes (%) (Auto) 6.3 % 7.6 % Eosinophils (%) (Auto) 2.8 % 3.7 % Basophils (%) (Auto) 0.4 % 0.5 % Neutrophils # (Auto) 6.66 K/uL 5.51 K/uL Lymphocytes # (Auto) 1.40 K/uL 1.43 K/uL Monocytes # (Auto) 0.56 K/uL 0.60 K/uL Eosinophils # (Auto) 0.25 K/uL 0.29 K/uL Basophils # (Auto) 0.04 K/uL 0.04 K/uL RDW Standard Deviation 49.4 fL 49.9 fL RDW Coefficient of Variation 15.5 % 15.5 % Immature Granulocyte % (Auto) 0.2 % 0.1 % Immature Granulocyte # (Auto) 0.02 K/uL 0.01 K/uL Erythrocyte Sedimentation Rate 38 mm/hr Prothrombin Time 12.3 SECONDS Prothromb Time International Ratio 1.1 Sodium Level 142 mmol/L Potassium Level 3.6 mmol/L Chloride Level 109 mmol/L Carbon Dioxide Level 23 mmol/L Anion Gap 10.0 mmol/L Blood Urea Nitrogen 10 mg/dl Creatinine 1.10 mg/dl Est Creatinine Clear Calc Drug Dose 65.0 ml/min Estimated GFR () 59.7 Estimated GFR (Non- 51.5 BUN/Creatinine Ratio 9.1 Random Glucose 109 mg/dl Lactic Acid Level 0.8 mmol/L Calcium Level 9.2 mg/dl C-Reactive Protein 2.34 mg/dl Procalcitonin < 0.05 ng/ml Assessment and Plan This is a 67 yo f with a history of seizure disorder, a fibb on eliquis and s/p left arthroplasty suffering from left knee cellulitis Left knee cellulitis s/p left total knee arthroplasty on 06/[address] Figueroa: - Admit to med/surg - Admitted on IV Vancomycin + Zosyn- defer antibiotic therapy to ID - [place] PRN for pain management - Ortho consulted, appreciate recommendations -- Eliquis held at admission pending consultation- per ortho note, can continue home medications- will resume Eliquis - Consulted ID, appreciate recommendations LLE swelling: - Venous Doppler negative for DVT - Elevate leg, TEDs Chronic anemia, baseline hgb 11.0- STABLE: Ferrous Sulfate 325 mg TID Chronic a.fib: Eliquis 5 mg BID, Metoprolol 25 mg daily, Lasix 20 mg daily, Mag- Ox 400 mg BID, and KCL 20 mEq daily Asthma: Continue home inhalers Anxiety: Ativan 0.5 mg BID Chronic lower extremity edema: Lasix 20 mg PO daily Seizure disorder: Continue Lamictal 100 mg BID, Levetiracetam 500 mg BID, and Topamax 100 mg BID h/o cellulitis on chronic suppression therapy- follows w/ Dr. Gardner: Bactrim held secondary to broad-spectrum IV antibiotics above GERD: Protonix 40 mg daily and Reglan 5 mg BID DVT Prophylaxis: Eliquis BID Code Status: LEVEL I, FULL Dispo: From [facility] social media sr strategy manager consulted - PT/OT evaluations
[2017-07-02] MEDS: HYDROCODONE/ACETAMI 10/325 TAB PO PRN ×2 (13:18→23:51)
--- NOTE | 2017-07-02 15:04 | Medical Consult ---
Consultation Date of Consultation: Jul 02, 2017. Attending Physician: Hector Hammer MD, PhD Reason for Consultation: Left joint infection status post arthroplasty History of Present Illness 67-year-old female well known to me from outpatient Infectious Disease follow-up , with history of chronic lower extremity lymphedema and venous stasis disease with recurrent cellulitis, maintained on chronic suppressive therapy with Bactrim with relative success. Patient recently underwent left knee arthroplasty, reportedly developed some evidence of purulent drainage from the wound treated with antibiotics although no record of this is available, and now admitted with worsening left leg swelling and severe pain. Patient has not had any associated fever or chills.Has been started empirically on IV vancomycin and Zosyn. Blood cultures have been negative to date. Patient has not had cough, urinary complaints, or gastrointestinal complaints. Past Medical/Surgical History Medical Problems: (1) Atrial flutter Status: Acute (2) Back strain Status: Acute (3) Bloody stool Status: Acute (4) Cellulitis and abscess of left leg Status: Acute (5) Diffuse pain Status: Acute (6) Epigastric abdominal pain Status: Acute (7) Forearm abrasion Status: Acute (8) Headache Status: Acute (9) Headache Status: Acute (10) Headache above the eye region Status: Acute (11) Hypertension Status: Acute (12) Left against medical advice Status: Acute (13) Left sided chest pain Status: Acute (14) Left sided chest pain Status: Acute (15) Lower abdominal pain Status: Acute (16) Malaise Status: Acute (17) Sore throat Status: Acute (18) Spasm of back muscles Status: Acute (19) Substernal chest pain Status: Acute Medical Problems: (1) Abdominal pain (2) Abnormal EKG (3) Abnormal EKG (4) Arthritis (5) Asthma, Unspecified (6) Back pain (7) Benign hypertension (8) Chest pain (9) Contusion of right knee (10) Cough (11) Cough (12) Dehydration (13) Diverticulitis (14) Dizziness (15) DJD (degenerative joint disease) of knee (16) Fall (17) Fracture of rib with routine healing (18) Gastroesophageal reflux disease (19) Gout (20) Hernia (21) Hip pain (22) History of recent fall (23) Hyperlipidemia (24) Migraine (25) Neck pain (26) Rectal bleeding (27) renal insufficiency (28) Rib fractures (29) Seizure (30) Spinal stenosis (31) Sprain of knee (32) Status post fall (33) Unexplained night sweats Surgical Problems: (1) back surgery (2) Cholecystectomy (3) History of appendectomy (4) History of arthroplasty of left knee (5) Hysterectomy (6) neck surgery (7) Status post total left knee replacement Family History Cancer FHx: neurologic disorder Heart disease Hypertension Kidney disease Other kidney diseases Seizures Social History Smoking Status: Never Smoker Smokeless Tobacco Use: No Alcohol Use: none Drug Use: none Marital Status: single Housing Status: lives alone Occupation Status: retired Allergies Coded Allergies: Adhesives (Verified Adverse Reaction, Unknown, ITCHY, 07/01/17) Current Inpatient Medications Current Inpatient Medications Medications (Trade) Dose Ordered Sig/Galileo Route Start Time Stop Time Status Last Admin Dose Admin Acetaminophen (Tylenol Tab) 650 mg Q4H PRN PO 07/02/17 03:30 08/01/17 03:29 07/02/17 04:46 650 MG Polyethylene (Miralax Powder Packet) 17 gm DAILY PRN PO 07/02/17 03:30 08/01/17 03:29 Ondansetron HCl (Zofran Inj) 4 mg Q6H PRN IV 07/02/17 03:30 08/01/17 03:29 Piperacillin Sod/ Tazobactam Sod 3.375 gm/Dextrose 115 ml @ 28.75 mls/ hr Q8H IV 07/02/17 10:00 07/12/17 09:59 07/02/17 09:57 28.75 MLS/HR Piperacillin Sod/ Tazobactam Sod (Consult) 1 ea UD PRN N/A 07/02/17 05:00 08/01/17 04:59 Vancomycin HCl (Consult) 1 ea UD PRN N/A 07/02/17 05:00 08/01/17 04:59 Ascorbic Acid (Vitamin C Tab) 500 mg QAM PO 07/02/17 09:00 08/01/17 08:59 07/02/17 08:57 500 MG Docusate Sodium (coLACE CAP) 100 mg BID PO 07/02/17 09:00 08/01/17 08:59 07/02/17 08:50 100 MG Fluticasone Propionate (Flonase Nasal [place]) 1 sprays QAM MORIS 07/02/17 09:00 08/01/17 08:59 07/02/17 08:50 1 SPRAYS Furosemide (Lasix Tab) 20 mg QAM PO 07/02/17 09:00 08/01/17 08:59 07/02/17 08:55 20 MG Acetaminophen/ Hydrocodone Bitart ([place] 10/325 Tab) 1 tab Q4H PRN PO 07/02/17 05:15 07/16/17 05:14 07/02/17 13:18 1 TAB Lamotrigine (Lamictal Tab) 300 mg Q12 PO 07/02/17 09:00 08/01/17 08:59 07/02/17 08:54 300 MG Levetiracetam (Keppra Tab) 500 mg BID PO 07/02/17 09:00 08/01/17 08:59 07/02/17 08:51 500 MG Lorazepam (Ativan Tab) 0.5 mg BID PO 07/02/17 09:00 08/01/17 08:59 07/02/17 08:49 0.5 MG Magnesium Oxide (Mag-Ox Tab) 400 mg BID PO 07/02/17 09:00 08/01/17 08:59 07/02/17 08:55 400 MG Metoclopramide HCl (Reglan Tab) 5 mg BID PO 07/02/17 09:00 08/01/17 08:59 07/02/17 08:56 5 MG Multivitamins/ Minerals (Multivitamin W/ Minerals Tab) 1 tab DAILY PO 07/02/17 09:00 08/01/17 08:59 07/02/17 08:56 1 TAB Pantoprazole Sodium (Protonix Tab) 40 mg BID PO 07/02/17 09:00 08/01/17 08:59 07/02/17 08:56 40 MG Potassium Chloride (Klor-Con Tab) 20 meq QAM PO 07/02/17 09:00 08/01/17 08:59 07/02/17 08:55 20 MEQ Senna/Docusate Sodium (Senokot S Tab) 1 tab HS PO 07/02/17 21:00 08/01/17 20:59 Topiramate (Topamax Tab) 100 mg BID PO 07/02/17 09:00 08/01/17 08:59 07/02/17 08:56 100 MG Ferrous Sulfate (Feosol Tab) 325 mg BIDM PO 07/02/17 08:30 08/01/17 08:29 07/02/17 08:51 325 MG Vancomycin HCl 1500 mg/Sodium Chloride 530 ml @ 200 mls/hr Q16H IV 07/02/17 16:00 07/12/17 15:59 Apixaban (Eliquis Tab) 5 mg BID PO 07/02/17 21:00 08/01/17 20:59 Review of Systems All systems were reviewed and are negative except as per HPI Physical Exam Date Time Temp Pulse Resp B/P (MAP) Pulse Ox O2 Delivery O2 Flow Rate FiO2 07/02/17 07:30 Room Air 07/02/17 06:58 36.6 88 18 116/75 (89) 97 Room Air 07/02/17 04:05 36.8 86 18 121/77 96 Room Air 07/02/17 04:03 85 18 122/74 95 Room Air 07/02/17 02:38 88 18 129/75 94 Room Air 07/01/17 23:02 37.0 95 18 166/70 96 Room Air General Appearance: WD/WN, no apparent distress Head: normocephalic, atraumatic Eyes: normal inspection, EOMI, sclerae normal ENT: normal ENT inspection, pharynx normal Neck: supple, no adenopathy, thyroid normal, trachea midline Respiratory/Chest: chest non-tender, lungs clear, normal breath sounds, no respiratory distress Cardiovascular: regular rate, rhythm, no gallop, no murmur Abdomen/GI: normal bowel sounds, non tender, soft, no organomegaly Back: normal inspection, no CVA tenderness Extremities/Musculoskelatal: no calf tenderness, normal capillary refill, + swelling (Left leg) Neurologic/Psych: alert, oriented x 3 Skin: normal color, no rash, + pertinent finding (Surgical incision appears to be healing appropriately with some surrounding ecchymoses, but no drug active drainage or evidence of cellulitis) Laboratory Results Date/Time Source Procedure Growth Status 07/02/17 00:37 Blood Blood Culture Pending Received 07/02/17 00:32 Blood Blood Culture Pending Received Last 24 Hours Test 07/02/17 00:32 8/14/17 06:25 07/02/17 09:54 White Blood Count 8.93 K/uL 7.88 K/uL Red Blood Count 3.67 M/uL 3.53 M/uL Hemoglobin 10.5 g/dL 10.1 g/dL Hematocrit 32.1 % 31.4 % Mean Corpuscular Volume 87.5 fL 89.0 fL Mean Corpuscular Hemoglobin 28.6 pg 28.6 pg Mean Corpuscular Hemoglobin Concent 32.7 g/dl 32.2 g/dl Platelet Count 361 K/uL 331 K/uL Mean Platelet Volume 9.3 fL 9.7 fL Neutrophils (%) (Auto) 74.6 % 70.0 % Lymphocytes (%) (Auto) 15.7 % 18.1 % Monocytes (%) (Auto) 6.3 % 7.6 % Eosinophils (%) (Auto) 2.8 % 3.7 % Basophils (%) (Auto) 0.4 % 0.5 % Neutrophils # (Auto) 6.66 K/uL 5.51 K/uL Lymphocytes # (Auto) 1.40 K/uL 1.43 K/uL Monocytes # (Auto) 0.56 K/uL 0.60 K/uL Eosinophils # (Auto) 0.25 K/uL 0.29 K/uL Basophils # (Auto) 0.04 K/uL 0.04 K/uL RDW Standard Deviation 49.4 fL 49.9 fL RDW Coefficient of Variation 15.5 % 15.5 % Immature Granulocyte % (Auto) 0.2 % 0.1 % Immature Granulocyte # (Auto) 0.02 K/uL 0.01 K/uL Erythrocyte Sedimentation Rate 38 mm/hr Prothrombin Time 12.3 SECONDS Prothromb Time International Ratio 1.1 Sodium Level 142 mmol/L Potassium Level 3.6 mmol/L Chloride Level 109 mmol/L Carbon Dioxide Level 23 mmol/L Anion Gap 10.0 mmol/L Blood Urea Nitrogen 10 mg/dl Creatinine 1.10 mg/dl Est Creatinine Clear Calc Drug Dose 65.0 ml/min Estimated GFR () 59.7 Estimated GFR (Non- 51.5 BUN/Creatinine Ratio 9.1 Random Glucose 109 mg/dl Lactic Acid Level 0.8 mmol/L Calcium Level 9.2 mg/dl C-Reactive Protein 2.34 mg/dl Procalcitonin < 0.05 ng/ml [~ rep ct add3]] CHEST ONE VIEW PORTABLE CLINICAL HISTORY: 67 years-old Female presenting with fever. TECHNIQUE: Portable upright AP view of the chest was obtained. COMPARISON: 03/14/2017. FINDINGS: Mediastinal and epigastric surgical clips again noted. Cardiac silhouette remains mildly enlarged. Lungs and pleural spaces clear. Anterior cervical fusion hardware noted. IMPRESSION: 1. Stable mild cardiomegaly. No convincing evidence of acute cardiopulmonary disease. Electronically signed by: Shree Ritter M.D. 07/02/2017 7:13 AM Dictated Date/Time: 07/02/2017 7:11 AM The Assessment & Plan 67-year-old female status post left knee arthroplasty now with severe pain, possible recent infection. At present, surgical site appears relatively clean, await final orthopedic opinion regarding further intervention. For now, patient should continue on IV antibiotics until final culture results are available. Will continue to follow.
[2017-07-02 15:29] VITALS: BP 105/56; PULSE 75; TEMP 36.7; O2SAT 96
[2017-07-02] MEDS ORDERED: VANCOMYCIN INJ 1,800 MG in SODIUM CHLORIDE 0.9% 500ML 500 ML IV SCH (16:00)
[2017-07-02] MEDS ORDERED: VANCOMYCIN INJ 1,600 MG in SODIUM CHLORIDE 0.9% 500ML 500 ML IV SCH (16:00)
[2017-07-02] MEDS: VANCOMYCIN INJ 1,500 MG in SODIUM CHLORIDE 0.9% 500ML 500 ML IV SCH (16:17)
[2017-07-02] MEDS ORDERED: NURSING VERBAL MED ORDER ONE (19:15)
[2017-07-02] MEDS: APIXABAN 2.5 MG TAB PO SCH (20:36)
[2017-07-02] MEDS: DOCUSATE SODIUM/SENNA 50/8.6MG TAB PO SCH (20:37)
[2017-07-02 23:00] VITALS: BP 97/57; PULSE 82; TEMP 36.9; O2SAT 99
[2017-07-02] MEDS: ONDANSETRON INJ 2 MG/ML 2 ML VIAL IV PRN (23:50)
[2017-07-03] MEDS: PIPERACILL/TAZOBAC IV 3.375 GM in DEXTROSE 5% 100ML 100 ML IV SCH ×3 (01:57→17:05)
--- NOTE | 2017-07-03 06:20 | Clinical Documentation Query ---
KANG Urban : CLINICAL DOCUMENTATION QUERY A possible discrepancy exists within the medical record. H&P documentation includes "left knee cellulitis secondary to post op complication". Orthopedic search engine optimization consultant notes "there seemed to be some discrepancy between her HPI and our objective findings regarding pain, swelling, redness." Please clarify as clinically appropriate as this will undoubtedly result in sales development representative uncertainty at time of discharge and result in further queries. Thank you. In your clinical opinion is this patient being managed for: (x ) possible Postoperative left knee cellulitis, a complication of care ( ) Postoperative left knee cellulitis, incidental/not a complication of care ( ) Other explanation of clinical findings (Please Explain) ( ) Unable to determine (Please Define) ( ) Need to Discuss ( ) Not Agree The medical record reflects the following clinical findings, treatment, and risk factors. Please clarify and document your clinical opinion in the progress notes and discharge summary. Terms such as "probable", "suspected", "likely", "questionable", "possible", or "still to be ruled out" are acceptable. IF IN AGREEMENT, YOU MUST DOCUMENT ABOVE DIAGNOSTIC STATEMENT IN DAILY PROGRESS NOTES AND DISCHARGE SUMMARY. This document is not part of the patient's record. Thank You, Oliverio López, NAYELI [phone]
--- NOTE | 2017-07-03 06:21 | Clinical Documentation Query ---
Dr. SAEZ, TRACI : CLINICAL DOCUMENTATION QUERY A possible discrepancy exists within the medical record. H&P documentation includes "left knee cellulitis secondary to post op complication". Orthopedic erp consultant notes "there seemed to be some discrepancy between her HPI and our objective findings regarding pain, swelling, redness." Please clarify as clinically appropriate as this will undoubtedly result in insurance coder uncertainty at time of discharge and result in further queries. Thank you. In your clinical opinion is this patient being managed for: ( ) Postoperative left knee cellulitis, a complication of care ( ) Postoperative left knee cellulitis, incidental/not a complication of care ( X ) Other explanation of clinical findings (Please Explain) Lymphadema ( ) Unable to determine (Please Define) ( ) Need to Discuss ( ) Not Agree The medical record reflects the following clinical findings, treatment, and risk factors. Please clarify and document your clinical opinion in the progress notes and discharge summary. Terms such as "probable", "suspected", "likely", "questionable", "possible", or "still to be ruled out" are acceptable. IF IN AGREEMENT, YOU MUST DOCUMENT ABOVE DIAGNOSTIC STATEMENT IN DAILY PROGRESS NOTES AND DISCHARGE SUMMARY. This document is not part of the patient's record. Thank You, Oliverio López, RN [phone]
--- NOTE | 2017-07-03 06:25 | Clinical Documentation Query ---
KANG Urban : CLINICAL DOCUMENTATION QUERY BMI noted to be 40.7 kg/m*m. In order to capture this clinically relevant data, the associated condition must be explicitly documented by the provider. As appropriate, consider documentation as suggested below. Thank you. In your clinical opinion is this patient: (x ) Morbidly obese, BMI 40.7 kg/m*m ( ) Other explanation of clinical findings (Please Explain) ( ) Unable to determine (Please Define) ( ) Need to Discuss ( ) Not Agree The medical record reflects the following clinical findings, treatment, and risk factors. Clinical Indicators: As above Treatment: AHA heart healthy diet Risk Factors: Caloric intake > expenditure Please clarify and document your clinical opinion in the progress notes and discharge summary. Terms such as "probable", "suspected", "likely", "questionable", "possible", or "still to be ruled out" are acceptable. IF IN AGREEMENT, YOU MUST DOCUMENT ABOVE DIAGNOSTIC STATEMENT IN DAILY PROGRESS NOTES AND DISCHARGE SUMMARY. This document is not part of the patient's record. Thank You, Oliverio López, RN [phone]
[2017-07-03 07:15] LABS: HEMATOCRIT 28.6 % (37-47); MEAN CELL VOLUME 88.5 fL (80-100); MEAN CORPUSCULAR HEMOGLOBIN 29.1 pg (25-34); MEAN CORPUSCULAR HGB CONC 32.9 g/dl (32-36); MEAN PLATELET VOLUME 9.7 fL (7.4-10.4); PLATELET COUNT 308 K/uL (130-400); RED BLOOD COUNT 3.23 M/uL (4.2-5.4); WHITE BLOOD COUNT 7.07 K/uL (4.8-10.8)
[2017-07-03 07:50] VITALS: BP 116/68; PULSE 86; TEMP 36.9; O2SAT 99
[2017-07-03] MEDS: VANCOMYCIN INJ 1,500 MG in SODIUM CHLORIDE 0.9% 500ML 500 ML IV SCH ×2 (08:41→23:39)
[2017-07-03] MEDS: PANTOprazole SOD 40 MG TAB PO SCH ×2 (08:51→20:56)
[2017-07-03] MEDS: FLUTICASONE PROPIONATE NA SPR 16 GM BTL NAE SCH (08:51)
[2017-07-03] MEDS: FUROSEMIDE 20 MG TAB PO SCH (08:52)
[2017-07-03] MEDS: APIXABAN 2.5 MG TAB PO SCH ×2 (08:52→20:51)
[2017-07-03] MEDS: POTASSIUM CHLORIDE 20 MEQ TABCR PO SCH (08:53)
[2017-07-03] MEDS: ASCORBIC ACID 500 MG TAB PO SCH (08:54)
[2017-07-03] MEDS: MAGNESIUM OXIDE 400 MG TAB PO SCH ×2 (08:54→20:56)
[2017-07-03] MEDS: LEVETIRACETAM 500 MG TAB PO SCH ×2 (08:54→20:51)
[2017-07-03] MEDS: TOPIRAMATE 100 MG TAB PO SCH ×2 (08:55→20:56)
[2017-07-03] MEDS: FERROUS SULFATE 325 MG TAB PO SCH ×2 (08:55→17:05)
[2017-07-03] MEDS: METOCLOPRAMIDE HCL 5 MG TAB PO SCH ×2 (08:55→20:56)
[2017-07-03] MEDS: CEROVITE ADV FORMULA TAB PO SCH (08:55)
[2017-07-03] MEDS: DOCUSATE SODIUM 100 MG CAP PO SCH ×2 (08:55→20:51)
[2017-07-03] MEDS: LORAZEPAM 0.5 MG TAB PO SCH ×2 (08:58→20:50)
[2017-07-03] MEDS: HYDROCODONE/ACETAMI 10/325 TAB PO PRN ×3 (08:59→22:02)
[2017-07-03 09:32] VITALS: O2SAT 100
--- NOTE | 2017-07-03 13:41 | Hospitalist Progress Note ---
Hospitalist Progress Note Date of Service Jul 03, 2017. Subjective Pt evaluation today including: conversation w/ patient, physical exam, chart review, lab review, review of inpatient medication list Voiding: no voiding problems, no incontinence Patient feeling well. Pain, erythema, edema of LLE improving. Denies any drainage from incision site Eating and drinking OK. Working with PT States she does NOT want to go back to acute rehab and wants to go home w/ HHS/outpatient PT. Patient denies any fever, chills, sweats, lightheadedness, dizziness, vision changes, CP, palpitations, SOB, wheezing, cough, abdominal pain, nausea, vomiting, diarrhea, urinary symptoms, melena, numbness/tingling, weakness, muscle/joint pain, anxiety/depression, active bleeding, or new skin discoloration/changes. Medications Current Inpatient Medications Medications (Trade) Dose Ordered Sig/Galileo Route Start Time Stop Time Status Last Admin Dose Admin Acetaminophen (Tylenol Tab) 650 mg Q4H PRN PO 07/02/17 03:30 08/01/17 03:29 07/02/17 04:46 650 MG Polyethylene (Miralax Powder Packet) 17 gm DAILY PRN PO 07/02/17 03:30 08/01/17 03:29 Ondansetron HCl (Zofran Inj) 4 mg Q6H PRN IV 07/02/17 03:30 08/01/17 03:29 07/02/17 23:50 4 MG Piperacillin Sod/ Tazobactam Sod 3.375 gm/Dextrose 115 ml @ 28.75 mls/ hr Q8H IV 07/02/17 10:00 07/12/17 09:59 07/03/17 10:05 28.75 MLS/HR Piperacillin Sod/ Tazobactam Sod (Consult) 1 ea UD PRN N/A 07/02/17 05:00 08/01/17 04:59 Vancomycin HCl (Consult) 1 ea UD PRN N/A 07/02/17 05:00 08/01/17 04:59 Ascorbic Acid (Vitamin C Tab) 500 mg QAM PO 07/02/17 09:00 08/01/17 08:59 07/03/17 08:54 500 MG Docusate Sodium (coLACE CAP) 100 mg BID PO 07/02/17 09:00 08/01/17 08:59 07/03/17 08:55 100 MG Fluticasone Propionate (Flonase Nasal [place]) 1 sprays QAM MORIS 07/02/17 09:00 08/01/17 08:59 07/03/17 08:51 1 SPRAYS Furosemide (Lasix Tab) 20 mg QAM PO 07/02/17 09:00 08/01/17 08:59 07/03/17 08:52 20 MG Acetaminophen/ Hydrocodone Bitart ([place] 10/325 Tab) 1 tab Q4H PRN PO 07/02/17 05:15 07/16/17 05:14 07/03/17 12:50 1 TAB Lamotrigine (Lamictal Tab) 300 mg Q12 PO 07/02/17 09:00 08/01/17 08:59 07/03/17 08:55 300 MG Levetiracetam (Keppra Tab) 500 mg BID PO 07/02/17 09:00 08/01/17 08:59 07/03/17 08:54 500 MG Lorazepam (Ativan Tab) 0.5 mg BID PO 07/02/17 09:00 08/01/17 08:59 07/03/17 08:58 0.5 MG Magnesium Oxide (Mag-Ox Tab) 400 mg BID PO 07/02/17 09:00 08/01/17 08:59 07/03/17 08:54 400 MG Metoclopramide HCl (Reglan Tab) 5 mg BID PO 07/02/17 09:00 08/01/17 08:59 07/03/17 08:55 5 MG Multivitamins/ Minerals (Multivitamin W/ Minerals Tab) 1 tab DAILY PO 07/02/17 09:00 08/01/17 08:59 07/03/17 08:55 1 TAB Pantoprazole Sodium (Protonix Tab) 40 mg BID PO 07/02/17 09:00 08/01/17 08:59 07/03/17 08:51 40 MG Potassium Chloride (Klor-Con Tab) 20 meq QAM PO 07/02/17 09:00 08/01/17 08:59 07/03/17 08:53 20 MEQ Senna/Docusate Sodium (Senokot S Tab) 1 tab HS PO 07/02/17 21:00 08/01/17 20:59 07/02/17 20:37 1 TAB Topiramate (Topamax Tab) 100 mg BID PO 07/02/17 09:00 08/01/17 08:59 07/03/17 08:55 100 MG Ferrous Sulfate (Feosol Tab) 325 mg BIDM PO 07/02/17 08:30 08/01/17 08:29 07/03/17 08:55 325 MG Vancomycin HCl 1500 mg/Sodium Chloride 530 ml @ 200 mls/hr Q16H IV 07/02/17 16:00 07/12/17 15:59 07/03/17 08:41 200 MLS/HR Apixaban (Eliquis Tab) 5 mg BID PO 07/02/17 21:00 08/01/17 20:59 07/03/17 08:52 5 MG Diphenhydramine HCl (Benadryl Cap) 25 mg DAILY PRN PO 07/02/17 19:15 08/01/17 19:14 Objective Vital Signs Date Time Temp Pulse Resp B/P (MAP) Pulse Ox O2 Delivery O2 Flow Rate FiO2 07/03/17 09:32 100 Room Air 07/03/17 07:50 36.9 86 14 116/68 (84) 99 Room Air 07/03/17 07:40 Room Air 07/02/17 23:50 Room Air 07/02/17 23:00 36.9 82 18 97/57 (70) 99 Room Air 57.0 07/02/17 19:25 Room Air 07/02/17 15:29 36.7 75 18 105/56 (72) 96 Room Air 07/02/17 15:00 Room Air Physical Exam General Appearance: no apparent distress, + obese Eyes: normal inspection, PERRL ENT: hearing grossly normal Neck: supple Respiratory/Chest: lungs clear, no respiratory distress, no accessory muscle use Cardiovascular: + systolic murmur, + irregularly irregular (rate controlled ) Abdomen: normal bowel sounds, non tender, soft Extremities: no calf tenderness, + swelling (+1 pitting edema of LLE ), + pertinent finding (left knee incision site clean, dry, and intact. No obvious erythema or drainage) Neurologic/Psychiatric: alert, normal mood/affect, oriented x 3 Skin: normal color, warm/dry, no rash Laboratory Results Last 24 Hours Test 07/03/17 06:30 White Blood Count 7.07 K/uL Red Blood Count 3.23 M/uL Hemoglobin 9.4 g/dL Hematocrit 28.6 % Mean Corpuscular Volume 88.5 fL Mean Corpuscular Hemoglobin 29.1 pg Mean Corpuscular Hemoglobin Concent 32.9 g/dl RDW Standard Deviation 50.6 fL RDW Coefficient of Variation 15.8 % Platelet Count 308 K/uL Mean Platelet Volume 9.7 fL Creatinine 1.00 mg/dl Est Creatinine Clear Calc Drug Dose 71.5 ml/min Estimated GFR () 67.0 Estimated GFR (Non- 57.8 Assessment and Plan This is a 67 yo f with a history of seizure disorder, a fibb on eliquis and s/p left arthroplasty suffering from left knee cellulitis Left knee cellulitis s/p left total knee arthroplasty on 06/[address] Figueroa: - Admit to med/surg - Admitted on IV Vancomycin + Zosyn- defer antibiotic therapy to ID - BCx- NGTD - [place] PRN for pain management - Ortho consulted, appreciate recommendations -- No surgical intervention needed at this time - Consulted ID, appreciate recommendations LLE swelling: - Venous Doppler negative for DVT - Elevate leg, TEDs Chronic anemia, baseline hgb 11.0- STABLE: Ferrous Sulfate 325 mg TID Chronic a.fib: Eliquis 5 mg BID, Metoprolol 25 mg daily, Lasix 20 mg daily, Mag- Ox 400 mg BID, and KCL 20 mEq daily Asthma: Continue home inhalers Anxiety: Ativan 0.5 mg BID Chronic lower extremity edema: Lasix 20 mg PO daily Seizure disorder: Continue Lamictal 100 mg BID, Levetiracetam 500 mg BID, and Topamax 100 mg BID h/o cellulitis on chronic suppression therapy- follows w/ Dr. Gardner: Bactrim held secondary to broad-spectrum IV antibiotics above GERD: Protonix 40 mg daily and Reglan 5 mg BID DVT Prophylaxis: Eliquis BID Code Status: LEVEL I, FULL Dispo: From home- will need [facility]- public health social worker consulted - PT/OT evaluations- return home
[2017-07-03 15:20] VITALS: BP 136/85; PULSE 87; TEMP 36.6; O2SAT 99
--- NOTE | 2017-07-03 18:35 | Orthopedic Progress Note ---
Orthopedic Progress Note Date of Service Jul 03, 2017. Subjective Post OP Day: HD # 2 Reports: feeling well Additional Notes: Patient is feeling better today. She notes that she walked very well and is having known pain in the knee. Objective incision C/D/I, A&O x3 Her incision is clean, dry, intact, shows no evidence of infection. There are still some Steri-Strips overlying the incision. Range of motion of the left lower leg 0-90. She continues with swelling of the lower leg and foot. No pain with palpation of the calf. Date Time Temp Pulse Resp B/P (MAP) Pulse Ox O2 Delivery O2 Flow Rate FiO2 07/03/17 15:20 36.6 87 20 136/85 (102) 99 Room Air 07/03/17 14:54 Room Air 07/03/17 09:32 100 Room Air 07/03/17 07:50 36.9 86 14 116/68 (84) 99 Room Air 07/03/17 07:40 Room Air 07/02/17 23:50 Room Air 07/02/17 23:00 36.9 82 18 97/57 (70) 99 Room Air 57.0 07/02/17 19:25 Room Air Laboratory Results 24 Hours: Test 07/03/17 06:30 Hematocrit 28.6 % Hemoglobin 9.4 g/dL Assessment & Plan Assessment: 2 weeks status post left TKA, readmitted due to pain and swelling of the lower leg with a history of lymphedema and chronic cellulitis. It was started on IV antibiotics. Plan: Continue with care per the primary service and antibiotic treatment per infectious disease. It does not appear that she has an infection of the knee joint following recent knee replacement. At this point it does not seem like she has a cellulitis, but continues with her chronic lymphedema. She may be discharged from an orthopedic standpoint once she is medically stable per the primary team. There are no plans for any surgical intervention. She will follow-up as an outpatient next week. She can call [phone] to schedule an appointment. If she is being discharged home, she will need home PT.
[2017-07-03] MEDS: DOCUSATE SODIUM/SENNA 50/8.6MG TAB PO SCH (20:56)
[2017-07-03 23:20] VITALS: BP 102/60; PULSE 92; TEMP 36.8; O2SAT 96
[2017-07-03] MEDS ORDERED: VANCOMYCIN TROUGH SCH (23:30)
[2017-07-04] MEDS: PIPERACILL/TAZOBAC IV 3.375 GM in DEXTROSE 5% 100ML 100 ML IV SCH ×2 (02:14→10:10)
[2017-07-04] MEDS: HYDROCODONE/ACETAMI 10/325 TAB PO PRN ×2 (03:15→08:31)
[2017-07-04 06:18] LABS: HEMATOCRIT 29.4 % (37-47); MEAN CELL VOLUME 88.6 fL (80-100); MEAN CORPUSCULAR HEMOGLOBIN 29.5 pg (25-34); MEAN CORPUSCULAR HGB CONC 33.3 g/dl (32-36); MEAN PLATELET VOLUME 9.2 fL (7.4-10.4); PLATELET COUNT 297 K/uL (130-400); RED BLOOD COUNT 3.32 M/uL (4.2-5.4); WHITE BLOOD COUNT 6.05 K/uL (4.8-10.8)
[2017-07-04 07:42] VITALS: BP 114/68; PULSE 72; TEMP 36.5; O2SAT 96
[2017-07-04 07:43] VITALS: O2SAT 96
[2017-07-04 08:30] VITALS: O2SAT 96
[2017-07-04] MEDS: FLUTICASONE PROPIONATE NA SPR 16 GM BTL NAE SCH (08:32)
[2017-07-04] MEDS: LEVETIRACETAM 500 MG TAB PO SCH (08:33)
[2017-07-04] MEDS: DOCUSATE SODIUM 100 MG CAP PO SCH (08:33)
[2017-07-04] MEDS: APIXABAN 2.5 MG TAB PO SCH (08:33)
[2017-07-04] MEDS: FERROUS SULFATE 325 MG TAB PO SCH (08:33)
[2017-07-04] MEDS: POTASSIUM CHLORIDE 20 MEQ TABCR PO SCH (08:34)
[2017-07-04] MEDS: FUROSEMIDE 20 MG TAB PO SCH (08:35)
[2017-07-04] MEDS: TOPIRAMATE 100 MG TAB PO SCH (08:35)
[2017-07-04] MEDS: CEROVITE ADV FORMULA TAB PO SCH (08:35)
[2017-07-04] MEDS: METOCLOPRAMIDE HCL 5 MG TAB PO SCH (08:35)
[2017-07-04] MEDS: PANTOprazole SOD 40 MG TAB PO SCH (08:35)
[2017-07-04] MEDS: MAGNESIUM OXIDE 400 MG TAB PO SCH (08:35)
[2017-07-04] MEDS: ASCORBIC ACID 500 MG TAB PO SCH (08:36)
[2017-07-04] MEDS: LORAZEPAM 0.5 MG TAB PO SCH (08:41)
[2017-07-04] MEDS: ACETAMINOPHEN 325 MG TAB PO PRN (10:11)
--- NOTE | 2017-07-04 10:22 | Progress Note ---
Orthopedic SOAP Note Subjective Date of Service: Jul 04, 2017. Reports: feeling well, pain controlled w PO medications, Denies: complaints, chest pain, SOB, nausea / vomiting, light headedness, calf pain, using TELECOMMUNICATIONS SWITCH TECHNICIAN Additional Notes: reports feeling much better regarding pain and swelling, overall pleased and inquiring about discharge Problem List Medical Problems: (1) Atrial flutter Status: Acute (2) Back strain Status: Acute (3) Bloody stool Status: Acute (4) Cellulitis and abscess of left leg Status: Acute (5) Diffuse pain Status: Acute (6) Epigastric abdominal pain Status: Acute (7) Forearm abrasion Status: Acute (8) Headache Status: Acute (9) Headache Status: Acute (10) Headache above the eye region Status: Acute (11) Hypertension Status: Acute (12) Left against medical advice Status: Acute (13) Left sided chest pain Status: Acute (14) Left sided chest pain Status: Acute (15) Lower abdominal pain Status: Acute (16) Malaise Status: Acute (17) Sore throat Status: Acute (18) Spasm of back muscles Status: Acute (19) Substernal chest pain Status: Acute Objective calves soft nontender, N/V intact, capillary refill less than 2 sec., incision C /D/I, A&O x3, toes mobile no appreciable erythema left LE Date Time Temp Pulse Resp B/P (MAP) Pulse Ox O2 Delivery O2 Flow Rate FiO2 07/04/17 08:30 96 Room Air 07/04/17 07:43 96 Room Air 07/04/17 07:42 36.5 72 20 114/68 (83) 96 Room Air 07/03/17 23:20 36.8 92 18 102/60 (74) 96 Room Air 07/03/17 20:00 Room Air 07/03/17 15:20 36.6 87 20 136/85 (102) 99 Room Air 07/03/17 14:54 Room Air Laboratory Results 24 Hours: Test 07/04/17 05:38 Hematocrit 29.4 % Hemoglobin 9.8 g/dL Assessment 2 weeks status post left TKA, readmitted due to pain and swelling of the lower leg with a history of lymphedema and chronic cellulitis. It was started on IV antibiotics. Plan Continue with care per the primary service and antibiotic treatment per infectious disease. It does not appear that she has an infection of the knee joint following recent knee replacement. At this point it does not seem like she has a cellulitis, but continues with her chronic lymphedema. She may be discharged from an orthopedic standpoint once she is medically stable per the primary team. There are no plans for any surgical intervention. She will follow-up as an outpatient next week. She can call [phone] to schedule an appointment. If she is being discharged home, she will need home PT.
--- NOTE | 2017-07-04 10:25 | Consultant Recommendations ---
Sider Recommendations Date of Service Jul 04, 2017. Sider Recommendations Continue post-operative protocol for left total knee arthroplasty, weightbear as tolerated with walker, ice/elevation as needed, lymphedema control with mechanical devices, the patient reports the AV impulse boots have been beneficial and inquiring about home use; will place order accordingly if possible to obtain, no apparent current cellulitis, pain control, follow up next week with Dr. Figueroa at [facility]; call for appointment [phone].
[2017-07-04 10:37] VITALS: BP 114/68; PULSE 72; TEMP 36.5; O2SAT 96
[2017-07-04] MEDS: ONDANSETRON INJ 2 MG/ML 2 ML VIAL IV PRN (11:25)
--- NOTE | 2017-07-04 12:17 | Pharmacy Progress Note ---
Pharmacy Antibiotic Prog Note Date of Service Jul 04, 2017. Subjective The patient is currently receiving vancomycin 1500 mg IV every 16 hours. The patient is currently on day # 3 of vancomycin IV therapy. Objective Height (Feet): 5 Height (Inches): 7.00 Weight (Kilograms): 117.800 Lab Results (24hrs): Test 07/03/17 23:28 07/04/17 05:38 Vancomycin Level Trough 20.7 mcg/ml (SEE COMMENT) White Blood Count 6.05 K/uL (4.8-10.8) Red Blood Count 3.32 M/uL (4.2-5.4) Hemoglobin 9.8 g/dL (12.0-16.0) Hematocrit 29.4 % (37-47) Mean Corpuscular Volume 88.6 fL (80-100) Mean Corpuscular Hemoglobin 29.5 pg (25-34) Mean Corpuscular Hemoglobin Concent 33.3 g/dl (32-36) RDW Standard Deviation 51.4 fL (36.4-46.3) RDW Coefficient of Variation 15.8 % (11.5-14.5) Platelet Count 297 K/uL (130-400) Mean Platelet Volume 9.2 fL (7.4-10.4) Creatinine 1.00 mg/dl (0.60-1.20) Est Creatinine Clear Calc Drug Dose 71.5 ml/min Estimated GFR () 67.0 Estimated GFR (Non- 57.8 Assessment & Plan Assessment * 67 yo F s/p TKA ~2 wks ago admitted with possible infected TKA, currently receiving Zosyn and vancomycin. History of chronic lymphedema / cellulitis. * SCr stable and at/near baseline * Goal trough 15-20 mcg/mL * Trough of 20.7 mcg/mL is slightly supratherapeutic. Will decrease dose as further accumulation 2nd obesity is probable * Trough prior to 3rd dose of new regimen Plan * Decrease vancomycin 1250 mg IV q16h * Trough 07/06 @ 0130 Pharmacy will continue to follow and will adjust dose/frequency as necessary. Thank you
[2017-07-04] MEDS ORDERED: CEPHALEXIN MONOHYDRATE 500 MG CAP PO SCH (13:00)
[2017-07-04] MEDS ORDERED: HYDR-4079 PO ×2 (13:08)
[2017-07-04] MEDS ORDERED: CEPH500C PO ×2 (13:08)
--- NOTE | 2017-07-04 13:09 | Discharge Instructions ---
Discharge Instructions Date of Service Jul 04, 2017. Admission Reason for Admission: History Of Arthroplasty Of Left Knee, Left Leg Discharge Discharge Diagnosis / Problem: left knee skin post op cellulitis Discharge Goals Goal(s): Decrease discomfort, Improve function, Increase independence, Improve disease control, Improve nutritional status, Learn about illness, Diagnostic testing, Therapeutic intervention, Prevent Disease Progression, Specific goals Activity Recommendations Activity Limitations: resume your previous activity . Instructions / Follow-Up Instructions / Follow-Up you have Left knee skin cellulitis s/p left total knee arthroplasty on 06/[address] Figueroa: you need to continue oral antibiotics , which includes Bactrim DS 1 tap srinath daily, which you have it, and I am giving you Keflex 500mg po qid for total 10 days you need to follow up with Dr. Gardner you need to follow up with orthopedic , ontinue post-operative protocol for left total knee arthroplasty, weightbear as tolerated with walker, ice/ elevation as needed, lymphedema control with mechanical devices, the patient reports the AV impulse boots have been beneficial and inquiring about home use; ortho has placed order accordingly if possible to obtain, you need to follow up next week with Dr. Figueroa at [facility]; call for appointment [phone]. you can have home PT at home, HHC per licensed social worker to set up - you need to follow up with your primary care physician in 1 week, - take medication as instructed, never overdose or any misuse, or take with alcohol, because misuse of medicine may cause organ damage or , call your primary care physician if have questions of medicaitons. - call your primary care physician OR go to local emergency room if has any fever/chill, chest pain, shortness of breathing, nausea/vomiting/abdominal pain , facial droop/slurry speech/local weakness, or if has any questions. - fall precaution - diet as instructed - you need to follow up with your subspecialist - you should understand that it is important to follow up the above instruction , and "not following the above instruction" may cause delayed or missed care of your medical conditions which may cause permanent organ damage and even . Current Hospital Diet Patient's current hospital diet: AHA Diet (Heart Healthy) Discharge Diet Recommended Diet: AHA Diet (Heart Healthy) Procedures Procedures Performed: no Pending Studies Studies pending at discharge: no Medical Emergencies . Who to Call and When: Medical Emergencies: If at any time you feel your situation is an emergency, please call 911 immediately. . Non-Emergent Contact Non-Emergency issues call your: Primary Care Provider, Specialist (orthopedic, and infectious disease Dr. Gardner) . . "Provider Documentation" section prepared by Hector Hammer. . Cytogeneticist Recommendations Cytogeneticist Recommendations: Continue post-operative protocol for left total knee arthroplasty, weightbear as tolerated with walker, ice/elevation as needed, lymphedema control with mechanical devices, the patient reports the AV impulse boots have been beneficial and inquiring about home use; will place order accordingly if possible to obtain, no apparent current cellulitis, pain control, follow up next week with Dr. Figueroa at [facility]; call for appointment [phone]. VTE Core Measure Inpt VTE Proph given/why not?: SCD's
[2017-07-04] MEDS ORDERED: SULFAMETHOXAZOLE/TRIMETHOPRIM DS 800/160MG TAB PO SCH (14:00)
--- NOTE | 2017-07-04 14:46 | Infectious Disease Progress Nt ---
Progress Note Date of Service Jul 04, 2017. Subjective Pt evaluation today including: conversation w/ patient, physical exam, chart review, lab review, review of studies, conversation w/ security system sales consultant, review of inpatient medication list Patient offering no new complaints today. No worsening leg pain. No drainage. No fever chills. No increase in erythema. Cultures remain negative. All Other Systems: Reviewed and Negative Medications Current Inpatient Medications Medications (Trade) Dose Ordered Sig/Galileo Route Start Time Stop Time Status Last Admin Dose Admin Acetaminophen (Tylenol Tab) 650 mg Q4H PRN PO 07/02/17 03:30 08/01/17 03:29 07/04/17 10:11 650 MG Polyethylene (Miralax Powder Packet) 17 gm DAILY PRN PO 07/02/17 03:30 08/01/17 03:29 Ondansetron HCl (Zofran Inj) 4 mg Q6H PRN IV 07/02/17 03:30 08/01/17 03:29 07/04/17 11:25 4 MG Ascorbic Acid (Vitamin C Tab) 500 mg QAM PO 07/02/17 09:00 08/01/17 08:59 07/04/17 08:36 500 MG Docusate Sodium (coLACE CAP) 100 mg BID PO 07/02/17 09:00 08/01/17 08:59 07/04/17 08:33 100 MG Fluticasone Propionate (Flonase Nasal [place]) 1 sprays QAM MORIS 07/02/17 09:00 08/01/17 08:59 07/04/17 08:32 1 SPRAYS Furosemide (Lasix Tab) 20 mg QAM PO 07/02/17 09:00 08/01/17 08:59 07/04/17 08:35 20 MG Acetaminophen/ Hydrocodone Bitart ([place] 10/325 Tab) 1 tab Q4H PRN PO 07/02/17 05:15 07/16/17 05:14 07/04/17 08:31 1 TAB Lamotrigine (Lamictal Tab) 300 mg Q12 PO 07/02/17 09:00 08/01/17 08:59 07/04/17 08:34 300 MG Levetiracetam (Keppra Tab) 500 mg BID PO 07/02/17 09:00 08/01/17 08:59 07/04/17 08:33 500 MG Lorazepam (Ativan Tab) 0.5 mg BID PO 07/02/17 09:00 08/01/17 08:59 07/04/17 08:41 0.5 MG Magnesium Oxide (Mag-Ox Tab) 400 mg BID PO 07/02/17 09:00 08/01/17 08:59 07/04/17 08:35 400 MG Metoclopramide HCl (Reglan Tab) 5 mg BID PO 07/02/17 09:00 08/01/17 08:59 07/04/17 08:35 5 MG Multivitamins/ Minerals (Multivitamin W/ Minerals Tab) 1 tab DAILY PO 07/02/17 09:00 08/01/17 08:59 07/04/17 08:35 1 TAB Pantoprazole Sodium (Protonix Tab) 40 mg BID PO 07/02/17 09:00 08/01/17 08:59 07/04/17 08:35 40 MG Potassium Chloride (Klor-Con Tab) 20 meq QAM PO 07/02/17 09:00 08/01/17 08:59 07/04/17 08:34 20 MEQ Senna/Docusate Sodium (Senokot S Tab) 1 tab HS PO 07/02/17 21:00 08/01/17 20:59 07/03/17 20:56 1 TAB Topiramate (Topamax Tab) 100 mg BID PO 07/02/17 09:00 08/01/17 08:59 07/04/17 08:35 100 MG Ferrous Sulfate (Feosol Tab) 325 mg BIDM PO 07/02/17 08:30 08/01/17 08:29 07/04/17 08:33 325 MG Apixaban (Eliquis Tab) 5 mg BID PO 07/02/17 21:00 08/01/17 20:59 07/04/17 08:33 5 MG Diphenhydramine HCl (Benadryl Cap) 25 mg DAILY PRN PO 07/02/17 19:15 08/01/17 19:14 Trimethoprim/ Sulfamethoxazole (Septra Ds 800/ 160MG Tab) 1 tab QAM PO 07/04/17 14:00 08/03/17 13:59 07/04/17 13:28 1 TAB Cephalexin Monohydrate (Keflex Cap) 500 mg QID PO 07/04/17 13:00 07/14/17 12:59 07/04/17 13:28 500 MG Objective Vital Signs Date Time Temp Pulse Resp B/P (MAP) Pulse Ox O2 Delivery O2 Flow Rate FiO2 07/04/17 10:37 36.5 72 20 96 Room Air 07/04/17 08:30 96 Room Air 07/04/17 07:43 96 Room Air 07/04/17 07:42 36.5 72 20 114/68 (83) 96 Room Air 07/03/17 23:20 36.8 92 18 102/60 (74) 96 Room Air 07/03/17 20:00 Room Air 07/03/17 15:20 36.6 87 20 136/85 (102) 99 Room Air 07/03/17 14:54 Room Air Physical Exam General Appearance: WD/WN, no apparent distress Eyes: normal inspection, sclerae normal ENT: normal ENT inspection, pharynx normal Neck: supple, thyroid normal, trachea midline Respiratory/Chest: lungs clear, normal breath sounds, no respiratory distress Cardiovascular: regular rate, rhythm, no gallop, no murmur Abdomen: normal bowel sounds, non tender, soft, no organomegaly Extremities: non-tender, no calf tenderness Neurologic/Psychiatric: alert, oriented x 3 Skin: normal color, no rash, + pertinent finding (Surgical site without drainage her significant surrounding erythema) Lymphatic: no adenopathy Laboratory Results Last 24 Hours Test 07/03/17 23:28 07/04/17 05:38 Vancomycin Level Trough 20.7 mcg/ml White Blood Count 6.05 K/uL Red Blood Count 3.32 M/uL Hemoglobin 9.8 g/dL Hematocrit 29.4 % Mean Corpuscular Volume 88.6 fL Mean Corpuscular Hemoglobin 29.5 pg Mean Corpuscular Hemoglobin Concent 33.3 g/dl RDW Standard Deviation 51.4 fL RDW Coefficient of Variation 15.8 % Platelet Count 297 K/uL Mean Platelet Volume 9.2 fL Creatinine 1.00 mg/dl Est Creatinine Clear Calc Drug Dose 71.5 ml/min Estimated GFR () 67.0 Estimated GFR (Non- 57.8 Assessment and Plan 67-year-old female status post left knee arthroplasty now with severe pain, possible recent infection. At present, surgical site appears relatively clean, and Orthopedics agrees that does not appear to have surgical site infection. I would recommend oral antibiotics with Bactrim DS 1 b.i.d. which she takes chronically for suppression, and add cephalexin 500 mg q.i.d. for 10 days. Discussed with hospitalist service.
[2017-07-04 15:20] VITALS: BP 98/55; PULSE 78; TEMP 36.5; O2SAT 96
[2017-07-04] MEDS ORDERED: VANCOMYCIN INJ 1,250 MG in SODIUM CHLORIDE 0.9% 250ML 250 ML IV SCH (18:00)
[2017-07-04] MEDS ORDERED: SULF800T23 PO ×2 (18:32)
--- NOTE | 2017-07-04 18:53 | Discharge Summary ---
Discharge Summary Date of Service Jul 04, 2017. Discharge Summary Admission Date: Jul 02, 2017 at 03:27 Discharge Date: Jul 04, 2017 Discharge Disposition: Home with services Principal Diagnosis: Left knee cellulitis s/p left total knee arthroplasty on 06/19 Problems/Secondary Diagnoses: left lower ext swollen Immunizations: Have You Had Influenza Vaccine: Yes Influenza Vaccine Date: Sep 10, 2011 History of Tetanus Vaccine?: Yes Tetanus Immunization Date: Mar 07, 1997 History of Pneumococcal: Yes Pneumococcal Date: Sep 09, 2011 History of Hepatitis B Vaccine: No Hepatitis Immunization Date: Jul 01, 2006 Procedures: No Consultations: Orthopedic Medication Reconciliation New Medications: Cephalexin Monohydrate (Keflex) 500 Mg Cap 500 MG PO QID for 10 Days, #40 CAP Changed Medications: Sulfa/Trimethoprim (Bactrim Ds 800MG/160MG) Tab 1 TAB PO BID for 10 Days (Changed from: QAM; TAKES ON REGULAR BASIS) bid for 10 days, then po daily as TAKES ON REGULAR BASIS, i called to patient about this Continued Medications: Apixaban (Eliquis) 5 Mg Tab 5 MG PO BID Ascorbic Acid (Vitamin C) 500 Mg Tab 500 MG PO QAM for 30 Days, #30 TAB Docusate Sodium (Colace) 100 Mg Cap 1 CAP PO BID Ferrous Sulfate (Kp Ferrous Sulfate) 325 Mg Tab 325 TAB PO BIDM, 3 Refills Fluticasone Propionate (Nasal) (Flonase Allergy Relief) 50 Mcg/Act Spr 2 SPRAY MORIS QAM Furosemide (Lasix) 20 Mg Tab 20 MG PO QAM Hydrocodone/Acetaminophen 10MG/325MG ([place] 10MG/325MG) Tab 1 TAB PO Q4H PRN for Pain for 3 Days, #10 TAB (This prescription has been renewed) PRN PAIN Lamotrigine (Lamictal) 100 Mg Tab 300 MG PO Q12 3 TABLET DOSE Levetiractam (Levetiracetam) 500 Mg Tab 500 MG PO BID Lorazepam (Ativan) 0.5 Mg Tab 0.5 MG PO BID Magnesium Oxide (Mag-Ox) 400 Mg Tab 400 MG PO BID, TAB Metoclopramide Hcl (Metoclopramide Hcl) 5 Mg Tab 5 MG PO BID Multiple Vitamins W/ Minerals (Multi Vitamin and Mineral) 1 Tab Tab 1 TAB PO DAILY Pantoprazole Sodium (Protonix) 40 Mg Tab 40 MG PO BID Potassium Chloride Microencaps (Potassium Chloride Er) 20 Meq Tab 20 MEQ PO QAM Senna/Docusate Sod (Senokot S) 1 Tab Tab 1 TAB PO HS, TAB Topiramate (Topiramate) 100 Mg Tab 100 MG PO BID Discharge Exam Doing good, no fever and chill, OOB and walk with therapist, Review of Systems: Constitutional: No fever, No chills, No sweats, No weight loss, No weakness , No fatigue, No problem reported Eyes: No worsening of vision, No eye pain, No redness, No discharge, No diplopia, No problem reported ENT: No hearing loss, No unusual epistaxis, No nasal symptoms, No sore throat, No tinnitus, No dental problems, No trouble swallowing, No problem reported Respiratory: No cough, No sputum, No wheezing, No shortness of breath, No dyspnea on exertion, No dyspnea at rest, No hemoptysis, No problem reported Cardiovascular: No chest pain, No orthopnea, No PND, No edema, No claudication, No palpitations, No problem reported Abdomen: No pain, No nausea, No vomiting, No diarrhea, No constipation, No GI bleeding, No problem reported Musculoskeletal: No joint pain, No muscle pain, No swelling, No calf pain, No problem reported Genitourinary - Female: No dysuria, No urinary frequency, No urinary urgency , No urinary incontinence, No urinary retention, No hematuria, No dysmenorrhea, No menorrhagia, No metrorrhagia, No rash, No vaginal bleeding, No vaginal discharge, No vaginal itching, No vulvodynia, No , No problem reported Endocrine: No fatigue, No excessive thirst, No excessive urination, No problem reported Hematologic / Lymphatic: No abnormal bleeding/bruising, No clotting problems , No swollen lymph nodes, No night sweats, No problem reported Integumentary: No rash, No itch, No new/changing skin lesions, No color change, No bleeding, No problem reported Physical Exam: General Appearance: WD/WN, no apparent distress, + obese Eyes: normal inspection, PERRL ENT: normal ENT inspection, hearing grossly normal, TMs normal Neck: supple, no adenopathy Respiratory/Chest: chest non-tender, normal breath sounds, no respiratory distress, no accessory muscle use, + decreased breath sounds Cardiovascular: regular rate, rhythm, no edema, no gallop, no JVD, no murmur Abdomen / GI: normal bowel sounds, non tender, soft, no organomegaly, no pulsatile mass Extremities: normal inspection, no calf tenderness, normal capillary refill , no pedal edema Neurologic/Psychiatric: dredge pumper II-XII nml as tested, no motor/sensory deficits , alert, normal mood/affect, normal reflexes, oriented x 3 Skin: normal color, warm/dry, no rash, + pertinent finding (left anterior the skin incision looks good, stable in place, there was no hot, drainage or chronic changes) Hospital Course This is a 67 yo f s/p left arthroplasty suffering from left knee cellulitis Left knee cellulitis s/p left total knee arthroplasty on 06/[address] Figueroa: Admitted on IV Vancomycin + Zosyn- defer antibiotic therapy to ID BCx- NGTD -Erie PRN for pain management Ortho consulted, appreciate recommendations No surgical intervention needed at this time Consulted ID, appreciate recommendations May have mild infection upon admission with what patient described of middle incision was red swelling and has drainage coming out, Totally resolved,no obvious continue infection for 2 days after IV antibiotics Orthopedic feel no us no any obvious knee infection postop Patient has no fever and chill, no leukocytosis, procalcitonin is negative, possible no severe infections going on Per recommendation of infectious disease, , discharge home with Bactrim DS 1 b.i.d. which she takes chronically for suppression, and add cephalexin 500 mg q.i.d. for 10 days. She'll was on Bactrim double strength 1 tab daily for chronic suppression prior to this admission, I recommend patient to follow-up with Dr. Gardner in this regard LLE swelling: - Venous Doppler negative for DVT - Elevate leg, TEDs Chronic anemia, baseline hgb 11.0- STABLE: Ferrous Sulfate 325 mg TID Chronic a.fib: Eliquis 5 mg BID, Metoprolol 25 mg daily, Lasix 20 mg daily, Mag- Ox 400 mg BID, and KCL 20 mEq daily Asthma: Continue home inhalers Anxiety: Ativan 0.5 mg BID Chronic lower extremity edema: Lasix 20 mg PO daily Seizure disorder: Continue Lamictal 100 mg BID, Levetiracetam 500 mg BID, and Topamax 100 mg BID h/o cellulitis on chronic suppression therapy- follows w/ Dr. Gardner: Bactrim held secondary to broad-spectrum IV antibiotics above GERD: Protonix 40 mg daily and Reglan 5 mg BID The above condition is stable DVT Prophylaxis: Eliquis BID Code Status: LEVEL I, FULL Dispo: From home- will need [facility]- social media coordinator consulted PT/OT evaluations, was done , return home with home healthcare, Instructions / Follow-Up you have Left knee skin cellulitis s/p left total knee arthroplasty on 06/[address] Figueroa: you need to continue oral antibiotics , which includes Bactrim DS 1 tap bid which you have it, and I am giving you Keflex 500mg po qid for total 10 days you need to follow up with Dr. Gardner you need to follow up with orthopedic , ontinue post-operative protocol for left total knee arthroplasty, weightbear as tolerated with walker, ice/ elevation as needed, lymphedema control with mechanical devices, the patient reports the AV impulse boots have been beneficial and inquiring about home use; ortho has placed order accordingly if possible to obtain, you need to follow up next week with Dr. Figueroa at [facility]; call for appointment [phone]. you can have home PT at home, HHC per marriage and family social worker to set up - you need to follow up with your primary care physician in 1 week, - take medication as instructed, never overdose or any misuse, or take with alcohol, because misuse of medicine may cause organ damage or , call your primary care physician if have questions of medicaitons. - call your primary care physician OR go to local emergency room if has any fever/chill, chest pain, shortness of breathing, nausea/vomiting/abdominal pain , facial droop/slurry speech/local weakness, or if has any questions. - fall precaution - diet as instructed - you need to follow up with your subspecialist - you should understand that it is important to follow up the above instruction , and "not following the above instruction" may cause delayed or missed care of your medical conditions which may cause permanent organ damage and even . Total Time Spent: Greater than 30 minutes This includes examination of the patient, discharge planning, medication reconciliation, and communication with other providers. Discharge Instructions Please refer to the electronic Patient Visit Report (Discharge Instructions) for additional information. Additional Copies To Marcelo Escoto M.D.
[2017-07-06] MEDS ORDERED: VANCOMYCIN TROUGH ONE (01:30)
[2017-08-16] MEDS ORDERED: FURO20TA PO (17:23)
[2017-08-16] MEDS ORDERED: LAMO200T38 PO (17:23)
[2017-08-16] MEDS ORDERED: LEVE500T PO (17:23)
[2017-08-16] MEDS ORDERED: POTA20TA13 PO (17:23)
[2017-08-16] MEDS ORDERED: LORA-741 PO (17:23)
[2017-08-16] MEDS ORDERED: IPRA0.03 NAE (17:23)
[2017-08-16] MEDS ORDERED: TPM100 PO (17:23)
[2017-08-16] MEDS ORDERED: METO5TAB2 PO (17:23)
[2017-08-16] MEDS ORDERED: TPRSR/25 PO (17:23)
[2017-08-16] MEDS ORDERED: SULF800T23 PO (17:23)
[2017-08-16] MEDS ORDERED: DOCU-94 PO (17:23)
[2017-08-16] MEDS ORDERED: PANT40TA PO (17:23)
[2017-08-16] MEDS ORDERED: VNTHFA/IN PO (17:23)
[2017-08-16] MEDS ORDERED: FERR1TAB13 PO (17:23)
[2017-08-16] MEDS ORDERED: LAMO100T16 PO (17:23)
[2017-08-16] MEDS ORDERED: APIX1TAB3 PO (17:23)
[2017-08-16] MEDS ORDERED: FLUT0.15 NAE (17:23)
== END 2017-07-04 16:30 | disposition home health service (06) | DRG 920 ==
LOC: EDBD 22:45 → C.EDB 22:47 → C.MSN 07-02 03:27 → CANRESERV 07-02 03:51 → ENRESERV 07-02 03:51
PROVIDERS: ADMIT Hospitalist; ATTEND Hospitalist
DX: L76.82 Other postprocedural complications of skin and subcutaneous tissue (principal); L03.116 Cellulitis of left lower limb; Z68.41 Body mass index [BMI] 40.0-44.9, adult; Y83.4 Other reconstructive surgery as the cause of abnormal reaction of the patient, or of later complication, without mention of misadventure at the time of the procedure; Z47.1 Aftercare following joint replacement surgery; Z96.652 Presence of left artificial knee joint; I48.2 Chronic atrial fibrillation; J45.909 Unspecified asthma, uncomplicated; G40.909 Epilepsy, unspecified, not intractable, without status epilepticus; K21.9 Gastro-esophageal reflux disease without esophagitis; D53.9 Nutritional anemia, unspecified; F41.9 Anxiety disorder, unspecified; E66.01 Morbid (severe) obesity due to excess calories; Z79.01 Long term (current) use of anticoagulants; I89.0 Lymphedema, not elsewhere classified; Z79.2 Long term (current) use of antibiotics; Z79.891 Long term (current) use of opiate analgesic; Z79.899 Other long term (current) drug therapy

== ENCOUNTER 2017-07-12 01:32 | Emergency (ER) | payer OTHER ==
[~2017-07-12] VITALS: Ht 170.2 cm; Wt 95.5 kg
[~2017-07-12 01:32] MED LIST changes: +CEPH500C PO; +HYDR-4079 PO; +MULT-1042 PO; +SENN-65 PO
[2017-07-12 01:36] VITALS: TEMP 36.7; Ht 170.2 cm; Wt 95.5 kg
--- NOTE | 2017-07-12 01:42 | EMERGENCY ROOM VISIT NOTE ---
History Report prepared by Chiara: Estefany Steinberg Under the Supervision of: Dr. Hector Matos M.D. First contact with patient: 01:37 Chief Complaint: KNEEPAIN Stated Complaint: LEFT LEG PAIN History of Present Illness The patient is a 67 year old female who presents to the Emergency Room for evaluation of left leg pain. Recent left knee replacement and then cellulitis of leg. Notes swelling of leg which has been constant until last few days and increasing in size. Has erythema but this has been red for some time. On Keflex and Bactrim for cellulitis. No fevers, nausea, vomiting, syncope, cp, sob, weakness (beyond normal), nor other acute symptoms> Notes that she chronically has unchanged headache and has had no falls. She notes she is on Eliquis but that she is concerned that she has developed a blood clot in her leg. Source of History: patient Position: leg (left) Quality: other (stinging) Timing: constant Associated Symptoms: + headache, No fevers Note: Pt notes that her leg has gotten bigger and more red Review of Systems See HPI for pertinent positives & negatives. A total of 10 systems reviewed and were otherwise negative. 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 (16) Fall (17) Fracture of rib with routine healing (18) Gastroesophageal reflux disease (19) Gout (20) Hernia (21) Hip pain (22) History of recent fall (23) Hyperlipidemia (24) Migraine (25) Neck pain (26) Rectal bleeding (27) renal insufficiency (28) Rib fractures (29) Seizure (30) Spinal stenosis (31) Sprain of knee (32) Status post fall (33) Unexplained night sweats Surgical Problems: (1) back surgery (2) Cholecystectomy (3) History of appendectomy (4) History of arthroplasty of left knee (5) Hysterectomy (6) neck surgery (7) Status post total left knee replacement Family History Cancer FHx: neurologic disorder Heart disease Hypertension Kidney disease Other kidney diseases Seizures Social History Smoking Status: Never Smoker Alcohol Use: none Drug Use: none Marital Status: single Housing Status: lives alone Occupation Status: retired Current/Historical Medications Scheduled Apixaban (Eliquis), 5 MG PO BID Ascorbic Acid (Ascorbic Acid), 500 MG PO QAM Cephalexin Monohydrate (Keflex), 500 MG PO QID Docusate Sodium (Colace), 100 MG PO BID Ferrous Sulfate (Kp Ferrous Sulfate), 325 TAB PO BIDM Fluticasone Propionate (Nasal) (Flonase Allergy Relief), 2 SPRAY MORIS QAM Furosemide (Lasix), 20 MG PO QAM Lamotrigine (Lamictal), 300 MG PO Q12 Levetiractam (Levetiracetam), 500 MG PO BID Lorazepam (Ativan), 0.5 MG PO TID Magnesium Oxide (Mag-Ox), 400 MG PO BID Metoclopramide Hcl (Metoclopramide Hcl), 5 MG PO BID Multiple Vitamins W/ Minerals (Multi Vitamin and Mineral), 1 TAB PO DAILY Pantoprazole Sodium (Protonix), 40 MG PO BID Potassium Chloride Microencaps (Potassium Chloride Er), 20 MEQ PO QAM Senna/Docusate Sod (Senokot S), 1 TAB PO HS Sulfa/Trimethoprim (Bactrim Ds 800MG/160MG), 1 TAB PO DAILY Topiramate (Topiramate), 100 MG PO BID Scheduled PRN Hydrocodone/Acetaminophen 10MG/325MG (Jarrell 10MG/325MG), 1 TAB PO Q4H PRN for Pain Allergies Coded Allergies: Adhesives (Verified Adverse Reaction, Unknown, ITCHY, 07/01/17) Physical Exam Vital Signs Date Time Temp Pulse Resp B/P (MAP) Pulse Ox O2 Delivery O2 Flow Rate FiO2 07/12/17 06:29 61 18 136/105 97 07/12/17 06:21 61 18 136/105 97 Room Air 07/12/17 04:24 85 16 156/92 99 Room Air 07/12/17 02:57 66 18 139/59 93 Room Air 07/12/17 01:36 36.7 81 20 100 Room Air Physical Exam GENERAL: Patient is chronically ill appearing and in minimal distress. HEENT: No acute trauma, normocephalic atraumatic, mucous membranes moist, no nasal congestion, no scleral icterus. NECK: No stridor, no adenopathy, no meningismus, trachea is midline. LUNGS: No dyspnea. Clear to auscultation and equal bilaterally. No wheeze, no rhonchi. HEART: Regular rate and rhythm. No murmurs, rubs, gallops appreciated. ABDOMEN: Soft, nontender, bowel sounds positive, no masses appreciated, no peritonitis. BACK: No midline tenderness, no CVA tenderness EXTREMITIES: Normal motion all extremities, no cyanosis. Large swelling on left leg and calf. Left calf swelling which patient states has been chronic since last discharge. NEUROLOGIC: Alert and oriented, no acute motor or sensory deficits, no focal weakness, cranial nerves grossly intact. SKIN: No rash, no jaundice, no diaphoresis. Well healing anterior incision scar on left leg. Medical Decision & Procedures ER Provider Diagnostic Interpretation: Radiology results and stated below per my review and radiologist interpretation. US VEINOUS LEFT LOWER EXTREMITY No evidence of deep venous thrombosis. Limited evaluation of the calf. Laboratory Results 07/12/17 02:25 Red Blood Count 3.60, Mean Corpuscular Volume 91.7, Mean Corpuscular Hemoglobin 28.6, Mean Corpuscular Hemoglobin Concent 31.2, Mean Platelet Volume 10.3, Neutrophils (%) (Auto) 62.4, Lymphocytes (%) (Auto) 26.4, Monocytes (%) (Auto) 5.4, Eosinophils (%) (Auto) 4.8, Basophils (%) (Auto) 0.8, Neutrophils # (Auto) 3.92, Lymphocytes # (Auto) 1.66, Monocytes # (Auto) 0.34, Eosinophils # (Auto) 0.30, Basophils # (Auto) 0.05 07/12/17 02:25 Test 07/12/17 02:25 White Blood Count 6.28 K/uL (4.8-10.8) Red Blood Count 3.60 M/uL (4.2-5.4) Hemoglobin 10.3 g/dL (12.0-16.0) Hematocrit 33.0 % (37-47) Mean Corpuscular Volume 91.7 fL (80-100) Mean Corpuscular Hemoglobin 28.6 pg (25-34) Mean Corpuscular Hemoglobin Concent 31.2 g/dl (32-36) Platelet Count 267 K/uL (130-400) Mean Platelet Volume 10.3 fL (7.4-10.4) Neutrophils (%) (Auto) 62.4 % Lymphocytes (%) (Auto) 26.4 % Monocytes (%) (Auto) 5.4 % Eosinophils (%) (Auto) 4.8 % Basophils (%) (Auto) 0.8 % Neutrophils # (Auto) 3.92 K/uL (1.4-6.5) Lymphocytes # (Auto) 1.66 K/uL (1.2-3.4) Monocytes # (Auto) 0.34 K/uL (0.11-0.59) Eosinophils # (Auto) 0.30 K/uL (0-0.5) Basophils # (Auto) 0.05 K/uL (0-0.2) RDW Standard Deviation 52.6 fL (36.4-46.3) RDW Coefficient of Variation 15.7 % (11.5-14.5) Immature Granulocyte % (Auto) 0.2 % Immature Granulocyte # (Auto) 0.01 K/uL (0.00-0.02) Anion Gap 6.0 mmol/L (3-11) Est Creatinine Clear Calc Drug Dose 63.9 ml/min Estimated GFR () 67.0 Estimated GFR (Non- 57.8 BUN/Creatinine Ratio 10.2 (10-20) Calcium Level 9.2 mg/dl (8.5-10.1) Laboratory results as reviewed by me. ED Course 0137: The patient was evaluated in room C5. A complete history and physical exam was performed. 0338: The patient is sleeping. 0555: The patient is sleeping 0628: The patient is awake and requesting discharge. 0635: Reevaluated the patient. Discussed results and discharge instructions: She verbalized understanding and agreement. The patient is ready for discharge. Medical Decision Differential: DVT, CHF, Arterial Occlusion, Infectious, Joint Effusion, Trauma, Lymphedema, Idiopathic, Trauma, amongst other pathologies entertained. 67 yr old female with multiple recent trips to hospital for left leg pain s/p knee replacement. She was recently admitted for cellulitis and discharged on Bactrim/Keflex. Arrives again this evening for evaluation of continued pain and swelling. Review of chart makes it a bit difficult to be sure of how much swelling was there previously though she notes that while leg was always red, it is more swollen than normal. She is concerned about blood clot even though she is on eliquis and has had several US of leg recently. She also is requesting niko mediations, though clearly not in distress and sleeping on most re-evaluations. Leg is swollen and mildly erythematous compared to the right but this seems more edema than actual infection. Repeat US leg is negative for acute DVT. Labs and vitals are not consistent with infection. She is currently finishing a course of bactrim/keflex and currently I do not see obvious reason to change this. She has arterial flow to leg, and denies recent trauma. This may end up being post surgical edema that is just taking quite some time to go down. Stressed keeping leg elevated. RTED if worsening or other concerns. Medication Reconcilliation Current Medication List: was personally reviewed by me Blood Pressure Screening Patient's blood pressure: Elevated blood pressure Blood pressure disposition: Elevated BP felt to be situational Impression Primary Impression: Pain and swelling of left lower leg Scribe Attestation The scribe's documentation has been prepared under my direction and personally reviewed by me in its entirety. I confirm that the note above accurately reflects all work, treatment, procedures, and medical decision making performed by me. Departure Information Dispostion Home / Self-Care Referrals Marcelo Escoto M.D. (PCP) Forms HOME CARE DOCUMENTATION FORM, IMPORTANT VISIT INFORMATION Patient Instructions My [facility] Additional Instructions Ultrasound of the leg was negative for DVT. There was no fever nor White Blood Cell elevation. Finish current round of antibiotics. Keep leg elevated as much as possible and follow up with Orthopedics in next few days. Return if fevers, vomiting, altered mental status, increased pain, drainage, or other concerns.
[2017-07-12 02:31] LABS: BASO % 0.8 %; BASO ABS # 0.05 K/uL (0-0.2); COMPLETE YES; EOS % 4.8 %; IG% 0.2 %; LYMPH % 26.4 %; LYMPH ABS # 1.66 K/uL (1.2-3.4); MEAN CELL VOLUME 91.7 fL (80-100); MEAN CORPUSCULAR HEMOGLOBIN 28.6 pg (25-34); MEAN CORPUSCULAR HGB CONC 31.2 g/dl (32-36); MEAN PLATELET VOLUME 10.3 fL (7.4-10.4); MONO % 5.4 %; NEUT % 62.4 %; PLATELET COUNT 267 K/uL (130-400); WHITE BLOOD COUNT 6.28 K/uL (4.8-10.8)
[2017-07-12 02:48] LABS: BUN/CREATININE RATIO 10.2 (10-20); CALCIUM 9.2 mg/dl (8.5-10.1); POTASSIUM 3.1 mmol/L (3.5-5.1)
[2017-07-12] MEDS ORDERED: ASCO500T16 PO (03:14)
[2017-07-12] MEDS ORDERED: CEPH500C PO (03:16)
[2017-07-12] MEDS ORDERED: HYDR-4079 PO (03:19)
[2017-07-12] MEDS ORDERED: SULF800T23 PO (03:30)
[2017-07-12 06:29] VITALS: BP 136/105; PULSE 61; O2SAT 97
--- NOTE | 2017-07-12 06:59 | DIAGNOSTIC IMAGING REPORT ---
BILATERAL LOWER EXTREMITY VENOUS DOPPLER HISTORY: Acute left leg swelling COMPARISON STUDY: Duplex venous study of the left lower extremity 07/02/2017. FINDINGS: There is normal compressibility, flow, and augmentation within the left lower extremity deep venous system. There is limited evaluation of the calf vessels due to soft tissue swelling and patient body habitus. IMPRESSION: No DVT within the left lower extremity. There is however limited evaluation of the calf vessels due to soft tissue swelling and patient body habitus. Electronically signed by: Shane Paulino M.D. 07/12/2017 6:58 AM Dictated Date/Time: 07/12/2017 6:56 AM
[2017-08-16] MEDS ORDERED: IPRA0.03 NAE (17:23)
[2017-08-16] MEDS ORDERED: LAMO100T16 PO (17:23)
[2017-08-16] MEDS ORDERED: FURO20TA PO (17:23)
[2017-08-16] MEDS ORDERED: TPM100 PO (17:23)
[2017-08-16] MEDS ORDERED: LORA-741 PO (17:23)
[2017-08-16] MEDS ORDERED: PANT40TA PO (17:23)
[2017-08-16] MEDS ORDERED: FLUT0.15 NAE (17:23)
[2017-08-16] MEDS ORDERED: DOCU-94 PO (17:23)
[2017-08-16] MEDS ORDERED: SULF800T23 PO (17:23)
[2017-08-16] MEDS ORDERED: LAMO200T38 PO (17:23)
[2017-08-16] MEDS ORDERED: VNTHFA/IN PO (17:23)
[2017-08-16] MEDS ORDERED: FERR1TAB13 PO (17:23)
[2017-08-16] MEDS ORDERED: APIX1TAB3 PO (17:23)
[2017-08-16] MEDS ORDERED: POTA20TA13 PO (17:23)
[2017-08-16] MEDS ORDERED: TPRSR/25 PO (17:23)
[2017-08-16] MEDS ORDERED: LEVE500T PO (17:23)
[2017-08-16] MEDS ORDERED: METO5TAB2 PO (17:23)
== END 2017-07-12 06:30 | disposition home or self-care (01) ==
LOC: EDBD 01:32 → C.EDC 01:33 → C.EDA 06:30
DX: M79.605 Pain in left leg (principal); R22.42 Localized swelling, mass and lump, left lower limb; Z98.890 Other specified postprocedural states; Z96.652 Presence of left artificial knee joint; Z79.01 Long term (current) use of anticoagulants; J45.909 Unspecified asthma, uncomplicated; I10 Essential (primary) hypertension; K21.9 Gastro-esophageal reflux disease without esophagitis; M10.9 Gout, unspecified; E78.5 Hyperlipidemia, unspecified; Z90.49 Acquired absence of other specified parts of digestive tract; Z90.710 Acquired absence of both cervix and uterus; Z80.9 Family history of malignant neoplasm, unspecified; Z82.49 Family history of ischemic heart disease and other diseases of the circulatory system; Z84.1 Family history of disorders of kidney and ureter; Z82.0 Family history of epilepsy and other diseases of the nervous system; Z79.899 Other long term (current) drug therapy

== ENCOUNTER 2017-08-13 23:23 | Inpatient (IN) | payer OTHER ==
[~2017-08-13] VITALS: Ht 170.2 cm; Wt 115.0 kg
[~2017-08-13 23:23] MED LIST changes: -ALBINS/ NEB; -ASCA500 PO; +ASCO500T16 PO; -ATRIN INH; -LAMO200T38 PO; -MULT-506 PO; -OXYC-57 PO; -VNTHFA/IN PO
[2017-08-13] MEDS ORDERED: ONDANSETRON INJ 2 MG/ML 2 ML VIAL IV STA (23:26)
[2017-08-13] MEDS ORDERED: SODIUM CHLORIDE 0.9% 500ML 500 ML IV STA (23:28)
[2017-08-13] MEDS ORDERED: SODIUM CHLORIDE 0.9% 1000ML 1,000 ML IV STA (23:28)
[2017-08-13] MEDS ORDERED: LORAZEPAM 2 MG/ML 1 ML VIAL IV STA (23:31)
--- NOTE | 2017-08-13 23:35 | EMERGENCY ROOM VISIT NOTE ---
History Report prepared by Chiara: Chanel Jackson Under the Supervision of: Dr. Jessy Lam M.D. First contact with patient: 23:23 Chief Complaint: ALTERED MENTAL STATUS Stated Complaint: ALTERED MENTAL STATUS History of Present Illness The patient is a 71 year old female who presents to the Emergency Room with complaints of an altered mental status beginning 1 hour prior to arrival. Per EMS, the patient has been conscious, but unresponsive. Per EMS, the patient was found lying on her side on the floor crying and the call came from her Life Alert. Per EMS, the patient does not answer questions or follow commands. Per EMS, the only purposeful movement she has is putting a bag to her face when she feels like she is nauseous. Limited HPI secondary to altered mental status. Source of History: EMS History Limited By: AMS Onset: 1 hour prior to arrival Position: other (global) Quality: other (altered mental status ) Associated Symptoms: + nausea Review of Systems Limited ROS secondary to altered mental status. 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 (16) Fall (17) Fracture of rib with routine healing (18) Gastroesophageal reflux disease (19) Gout (20) Hernia (21) Hip pain (22) History of recent fall (23) Hyperlipidemia (24) Migraine (25) Neck pain (26) Rectal bleeding (27) renal insufficiency (28) Rib fractures (29) Seizure (30) Spinal stenosis (31) Sprain of knee (32) Status post fall (33) Unexplained night sweats Surgical Problems: (1) back surgery (2) Cholecystectomy (3) History of appendectomy (4) History of arthroplasty of left knee (5) Hysterectomy (6) neck surgery (7) Status post total left knee replacement Unable to obtain medical history sheet secondary to altered mental status. Family History Unable to obtain medical history sheet secondary to altered mental status. Social History Smoking Status: Never Smoker Alcohol Use: none Drug Use: none Marital Status: single Housing Status: lives alone Occupation Status: retired Current/Historical Medications Scheduled Apixaban (Eliquis), 5 MG PO BID Ascorbic Acid (Ra Vitamin C), 500 MG PO QAM Docusate Sodium (Colace), 100 MG PO BID Estradiol Vaginal (Estrace), 0.25 APPL PV UD Ferrous Sulfate (Kp Ferrous Sulfate), 325 TAB PO BIDM Fluticasone Propionate (Nasal) (Flonase Allergy Relief), 2 SPRAY MORIS QAM Furosemide (Lasix), 20 MG PO QAM Ipratropium [place] (Nasal) (Ipratropium [place]), 2 SPRAYS MORIS TID Lamotrigine (Lamictal), 100 MG PO BID Lamotrigine (Lamictal), 200 MG PO BID Levetiractam (Levetiracetam), 500 MG PO BID Lorazepam (Ativan), 0.5 MG PO BID Magnesium Oxide (Mag-Ox), 400 MG PO BID Metoclopramide Hcl (Metoclopramide Hcl), 5 MG PO BID Metoprolol Succinate (Metoprolol Succinate ER), 25 MG PO DAILY Multivitamin (Multivitamin), 1 TAB PO DAILY Pantoprazole Sodium (Protonix), 40 MG PO BID Potassium Chloride Microencaps (Potassium Chloride Er), 20 MEQ PO QAM Sulfa/Trimethoprim (Bactrim Ds 800MG/160MG), 1 TAB PO DAILY Topiramate (Topiramate), 100 MG PO BID Scheduled PRN Albuterol Hfa (Ventolin Hfa), 2 PUFFS PO QID PRN for SOB/Wheezing Oxycodone Ir (Roxicodone Ir), 1-2 TAB PO Q4H PRN for Pain Allergies Coded Allergies: Adhesives (Verified Adverse Reaction, Unknown, ITCHY, 07/01/17) Physical Exam Vital Signs Date Time Temp Pulse Resp B/P (MAP) Pulse Ox O2 Delivery O2 Flow Rate FiO2 08/14/17 01:01 121/72 08/14/17 01:00 82 16 98 Free Flow/Blowby 08/14/17 00:45 97 Free Flow/Blowby 08/14/17 00:37 35.2 08/14/17 00:32 126/66 08/14/17 00:23 85 15 98 08/14/17 00:04 143/88 08/13/17 23:53 88 29 93 Room Air 08/13/17 23:51 86 18 131/60 97 Room Air 08/13/17 23:32 131/60 Physical Exam Vital signs reviewed. General: Obese female, disheveled, chronically ill-appearing, obtunded, agitated and restless. HEENT: No scleral icterus, PERRLA, neck supple. Atraumatic. Cardiovascular: Irregular rate controlled heart, no extra sounds. Pulmonary: Clear to auscultation bilaterally, normal work of breathing. Abdomen: Obese, soft, nontender, nondistended, positive bowel sounds. Musculoskeletal: Atraumatic, no peripheral edema. Post surgical changes noted to left knee, well healed. Neurologic: Minimally verbal but moaning. Moves all 4 extremities. Skin: Warm, dry, no rash Medical Decision & Procedures ER Provider Diagnostic Interpretation: Chest X-Ray: Post-surgical change to cervical spine. Question hiatal hernia. Cardiomegaly. Question pulmonary vascular congestion. No significant change from previous. CT Head: No acute intracranial process. Involutional changes with small vessel disease. Cataract surgery. Laboratory Results Test 08/13/17 23:31 08/13/17 23:59 08/14/17 00:00 08/14/17 00:04 Bedside Glucose 143 mg/dl (70-90) RDW Standard Deviation 47.0 fL (36.4-46.3) RDW Coefficient of Variation 14.4 % (11.5-14.5) White Blood Count 7.65 K/uL (4.8-10.8) Red Blood Count 3.94 M/uL (4.2-5.4) Hemoglobin 11.5 g/dL (12.0-16.0) Hematocrit 34.7 % (37-47) Mean Corpuscular Volume 88.1 fL (80-100) Mean Corpuscular Hemoglobin 29.2 pg (25-34) Mean Corpuscular Hemoglobin Concent 33.1 g/dl (32-36) Platelet Count 187 K/uL (130-400) Mean Platelet Volume 10.9 fL (7.4-10.4) Neutrophils (%) (Auto) 72.1 % Lymphocytes (%) (Auto) 19.2 % Monocytes (%) (Auto) 5.8 % Eosinophils (%) (Auto) 2.1 % Basophils (%) (Auto) 0.4 % Neutrophils # (Auto) 5.52 K/uL (1.4-6.5) Lymphocytes # (Auto) 1.47 K/uL (1.2-3.4) Monocytes # (Auto) 0.44 K/uL (0.11-0.59) Eosinophils # (Auto) 0.16 K/uL (0-0.5) Basophils # (Auto) 0.03 K/uL (0-0.2) Immature Granulocyte % (Auto) 0.4 % Immature Granulocyte # (Auto) 0.03 K/uL (0.00-0.02) Est Creatinine Clear Calc Drug Dose 58.2 ml/min Total Bilirubin 0.5 mg/dl (0.2-1) Direct Bilirubin 0.2 mg/dl (0-0.2) Aspartate Amino Transf (AST/SGOT) 14 U/L (15-37) Alanine Aminotransferase (ALT/SGPT) 9 U/L (12-78) Alkaline Phosphatase 119 U/L (45-117) Total Creatine Kinase 161 U/L (26-192) Creatine Kinase MB 0.8 ng/ml (0.5-3.6) Creatine Kinase MB Ratio 0.5 (0-3.0) Troponin I < 0.015 ng/ml (0-0.045) Total Protein 7.4 gm/dl (6.4-8.2) Albumin 4.0 gm/dl (3.4-5.0) Amylase Level 51 U/L (25-115) Lipase 226 U/L (73-393) Bedside Lactic Acid Arterial 3.43 mmol/L (0.36-1.25) Bedside Troponin I < 0.030 ng/ml (0-0.045) Test 08/14/17 00:15 Urine Color YELLOW Urine Appearance TURBID (CLEAR) Urine pH 8.0 (4.5-7.5) Urine Specific [place] 1.014 (1.000-1.030) Urine Protein NEG (NEG) Urine Glucose (UA) NEG (NEG) Urine Ketones TRACE (NEG) Urine Occult Blood NEG (NEG) Urine Nitrite NEG (NEG) Urine Bilirubin NEG (NEG) Urine Urobilinogen NEG (NEG) Urine Leukocyte Esterase NEG (NEG) Urine WBC (Auto) 1-5 /hpf (0-5) Urine RBC (Auto) 0-4 /hpf (0-4) Urine Hyaline Casts (Auto) 10-30 /lpf (0-5) Urine Epithelial Cells (Auto) >30 /lpf (0-5) Urine Bacteria (Auto) NEG (NEG) Urine Renal Epithelial Cells /lpf (0-5) Urine Crystals AMORPHOUS SEDIMENT (NONE Urine Pathogenic Casts 1-5 GRANULAR CASTS /lpf (0) Urine Mucus PRESENT (NONE PRSENT) Laboratory results per my review. Medications Administered Medications (Trade) Dose Ordered Sig/Galileo Route Start Time Stop Time Status Last Admin Dose Admin Ondansetron HCl (Zofran Inj) 4 mg NOW STAT IV 08/13/17 23:26 08/13/17 23:27 DC 08/13/17 23:26 4 MG Sodium Chloride 500 ml @ 999 mls/hr Q31M STAT IV 08/13/17 23:28 08/13/17 23:58 DC 08/13/17 23:28 999 MLS/HR Sodium Chloride 1,000 ml @ 125 mls/hr Q8H STAT IV 08/13/17 23:28 08/14/17 02:56 DC 08/14/17 00:36 125 MLS/HR Lorazepam (Ativan Inj) 1 mg NOW STAT IV 08/13/17 23:31 08/13/17 23:32 DC 08/14/17 00:36 1 MG Piperacillin Sod/ Tazobactam Sod (Zosyn Iv) 4.5 gm NOW STAT IV 08/14/17 00:19 08/14/17 00:21 DC 08/14/17 00:42 4.5 GM Potassium Chloride (Kcl 10 Meq / Wtr) 20 meq NOW STAT IV 08/14/17 00:28 08/14/17 00:29 DC 08/14/17 01:25 20 MEQ Metoclopramide HCl (Reglan Inj) 10 mg STK-MED ONCE .ROUTE 08/14/17 00:52 08/14/17 00:53 DC 08/14/17 00:52 5 MG ECG Indication: altered mental status Rate (beats per minute): 89 Rhythm: atrial fibrillation Findings: no acute ischemic change, other (poor quality baseline for interpretation, PVC, non-specfic ST change) ED Course 2324: Past medical records reviewed. The patient was evaluated in room B1. A complete history and physical examination was performed. 2326: Ordered Zofran Inj 4 mg IV. 2328: Ordered Sodium Chloride 1,000 ml @ 125 mls/hr IV, Sodium Chloride 500 ml @ 999 mls/hr IV. 2331: Ordered Lorazepam 1 mg IV. 0019: Ordered Zosyn Iv 4.5 gm IV. 0028: Ordered Potassium Chloride 20 meq IV. 0040: I reviewed the patient's case with Dr. Burton. He will evaluate the patient for further management. Medical Decision Differential diagnosis: Etiologies such as metabolic, infection, hypoglycemia, electrolyte abnormalities , cardiac sources, intracerebral event, toxicologic, neurologic, as well as others were entertained. This patient was evaluated and appeared to be in no significant distress. IV access was obtained and laboratory work was drawn. The patient was placed on the court monitor. The patient seems to be altered and unable to cooperate fully with exam. CT scan of the head was performed and is negative for acute intracranial abnormality. Laboratory work reveals hypokalemia with a potassium of 2.6. IV potassium was ordered. Patient did receive 1 mg of IV Ativan in the emergency department she was complaining of dizziness. I suspect she may be postictal with her history of seizures. The etiology of the presentation is unclear however she does have a lactic acidosis of 3.43. Blood cultures are pending. Patient was given Zosyn 4.5 g IV empirically. Urinalysis is clear. Chest x-ray reveals no evidence of focal lung consolidation. Patient is noted to be hypothermic and the Michaela hugger was applied. The case was discussed with Dr. Burton of the hospitalist service who evaluated the patient for further management. Medication Reconcilliation Current Medication List: was personally reviewed by me Blood Pressure Screening Patient's blood pressure: Elevated blood pressure Blood pressure disposition: Elevated BP felt to be situational Consults Time Called: 22 Consulting Physician: Dr. Burton[place] Returned Call: [phone] I reviewed the patient's case with Dr. Burton. He will evaluate the patient for further management. Impression Primary Impression: Altered mental status Additional Impressions: Hypothermia Hypokalemia Lactic acidosis Scribe Attestation The scribe's documentation has been prepared under my direction and personally reviewed by me in its entirety. I confirm that the note above accurately reflects all work, treatment, procedures, and medical decision making performed by me. Departure Information Dispostion Being Evaluated By Hospitalist Referrals Marcelo Escoto M.D. (PCP) Patient Instructions My [facility] Problem Qualifiers
[2017-08-14] VITALS (11 sets, daily range): BP systolic 117–138; BP diastolic 58–81; PULSE 66–88; TEMP 34.8–36.9; O2SAT 92–100; Ht 170.2 cm; Wt 115.0 kg
[2017-08-14 00:10] LABS: BASO % 0.4 %; BASO ABS # 0.03 K/uL (0-0.2); COMPLETE YES; EOS % 2.1 %; HEMATOCRIT 34.7 % (37-47); IG% 0.4 %; LYMPH % 19.2 %; LYMPH ABS # 1.47 K/uL (1.2-3.4); MEAN CELL VOLUME 88.1 fL (80-100); MEAN CORPUSCULAR HEMOGLOBIN 29.2 pg (25-34); MEAN CORPUSCULAR HGB CONC 33.1 g/dl (32-36); MEAN PLATELET VOLUME 10.9 fL (7.4-10.4); MONO % 5.8 %; NEUT % 72.1 %; PLATELET COUNT 187 K/uL (130-400); RED BLOOD COUNT 3.94 M/uL (4.2-5.4); WHITE BLOOD COUNT 7.65 K/uL (4.8-10.8)
[2017-08-14] MEDS ORDERED: LAMO200T38 PO (00:10)
[2017-08-14] MEDS ORDERED: TPRSR/25 PO (00:17)
[2017-08-14] MEDS ORDERED: [UNRECOGNIZED DRUG - CODE] PO (00:17)
[2017-08-14] MEDS ORDERED: VNTHFA/IN PO (00:17)
[2017-08-14] MEDS ORDERED: OXYC1TAB3 PO (00:19)
[2017-08-14] MEDS ORDERED: IPRA0.03 NAE (00:19)
[2017-08-14] MEDS ORDERED: MULT-506 PO (00:19)
[2017-08-14] MEDS ORDERED: PIPERACILLIN/TAZOBACTAM 4.5 GM/100ML D5W IV STA (00:19)
[2017-08-14] MEDS ORDERED: ESTCR PV (00:23)
[2017-08-14 00:26] LABS: ALT/SGPT 9 U/L (12-78); BLOOD UREA NITROGEN 8 mg/dl (7-18); BUN/CREATININE RATIO 6.7 (10-20); CALCIUM 9.2 mg/dl (8.5-10.1); CARBON DIOXIDE 18 mmol/L (21-32); CHLORIDE 111 mmol/L (98-107); GLUCOSE 149 mg/dl (70-99); POTASSIUM 2.6 mmol/L (3.5-5.1); SODIUM 144 mmol/L (136-145)
[2017-08-14] MEDS ORDERED: POTASSIUM CHLORIDE 10 MEQ / 100ML WTR IV STA (00:28)
[2017-08-14 00:32] LABS: ALKALINE PHOSPHATASE 119 U/L (45-117); AST/SGOT 14 U/L (15-37); CKMB/CK RATIO 0.5 (0-3.0)
[2017-08-14 00:34] LABS: URINE APPEARANCE TURBID (CLEAR); URINE BILIRUBIN NEG (NEG); URINE COLOR YELLOW; URINE EPITHELIAL CELL AUTO >30 /lpf (0-5); URINE NITRITE NEG (NEG); URINE SPECIFIC GRAVITY 1.014 (1.000-1.030); UROBILINOGEN NEG (NEG); ZZURINE CULT IF INDIC CATH NO
[2017-08-14 00:35] LABS: MANUAL MICROSCOPIC REQUIRED? NO; REVIEW REQ? YES
[2017-08-14] MEDS ORDERED: ALBUTEROL 0.083% NEBU SOLN 3 ML VIAL INH PRN (00:45)
[2017-08-14 00:49] LABS: URINE MUCUS PRESENT (NONE PRSENT); URINE PATH CASTS 1-5 GRANULAR CASTS /lpf (0)
[2017-08-14] MEDS ORDERED: METOCLOPRAMIDE HCL INJ 5 MG/ML 2 ML VIAL ONE (00:52)
[2017-08-14] MEDS ORDERED: POLYETHYLENE (MIRALAX) 17 GM PACK PO PRN (01:15)
[2017-08-14] MEDS ORDERED: MoRPHine SULFATE 2 MG/ML CARP IV PRN (01:15)
[2017-08-14] MEDS ORDERED: NITROGLYCERIN 0.4 MG SL PER TAB CHARGE SL PRN (01:15)
[2017-08-14] MEDS ORDERED: MAGNESIUM HYDROXIDE SUSP 30 ML UDC PO PRN (01:15)
[2017-08-14] MEDS ORDERED: ALUMINUM/MAGNESIUM/SIMETH (MAALOX MAX) 30 ML UDC PO PRN (01:15)
--- NOTE | 2017-08-14 01:16 | History and Physical ---
History & Physical Date & Time of Service: Aug 14, 2017 at 01:13 Chief Complaint: Altered Mental Status Primary Care Physician: Marcelo Escoto M.D. History of Present Illness Source: patient, hospital records, other 67 y/o F Hx seizure disorder, asthma, atrial fibrillation. Pt was brought in by EMS after she had activated her life alert system. She was found on the floor of her home yelling - possibly in pain - and appeared disoriented. She was unable to provide any information as to what may have transpired. The pt was exhibiting continuos dry-heaving in the ER. An initial temp was 35. Labs were notable for hypokalemia and elevated lactic acid . She gradually regained a degree of orientation but continued to have a poor recollection of the days events. She states that she was weak and shaking. She does not recall having a seizure or falling and denies head trauma. She denies SOB, CP, vomiting, diarrhea or dysuria but may not be a reliable historian. Past Medical/Surgical History 1) Seizure disorder 2) PAF 3) GERD 4) Asthma 5) Anxiety 6) Allergic rhinitis 7) Morbid obesity Surgical Problems: 1) Back surgery 2) Cholecystectomy 3) Hysterectomy 4) Neck surgery 5) L TKR Family History Cancer FHx: neurologic disorder Heart disease Hypertension Kidney disease Other kidney diseases Seizures Social History Smoking Status: Unknown if Ever Smoked Drug Use: none Marital Status: single Housing status: lives alone Occupational Status: retired Immunizations History of Influenza Vaccine: Yes Influenza Vaccine Date: Sep 10, 2011 History of Tetanus Vaccine?: Yes Tetanus Immunization Date: Mar 07, 1997 History of Pneumococcal: Yes Pneumococcal Date: Sep 09, 2011 History of Hepatitis B Vaccine: No Hepatitis Immunization Date: Jul 01, 2006 Multi-Drug Resistant Organisms History of MDRO: No Allergies Coded Allergies: Adhesives (Verified Adverse Reaction, Unknown, ITCHY, 07/01/17) Home Medications Scheduled Apixaban (Eliquis), 5 MG PO BID Ascorbic Acid (Ra Vitamin C), 500 MG PO QAM Docusate Sodium (Colace), 100 MG PO BID Estradiol Vaginal (Estrace), 0.25 APPL PV UD Ferrous Sulfate (Kp Ferrous Sulfate), 325 TAB PO BIDM Fluticasone Propionate (Nasal) (Flonase Allergy Relief), 2 SPRAY [place]ORIS QAM Furosemide (Lasix), 20 MG PO QAM Ipratropium [place] (Nasal) (Ipratropium [place]), 2 SPRAYS MORIS TID Lamotrigine (Lamictal), 100 MG PO BID Lamotrigine (Lamictal), 200 MG PO BID Levetiractam (Levetiracetam), 500 MG PO BID Lorazepam (Ativan), 0.5 MG PO BID Magnesium Oxide (Mag-Ox), 400 MG PO BID Metoclopramide Hcl (Metoclopramide Hcl), 5 MG PO BID Metoprolol Succinate (Metoprolol Succinate ER), 25 MG PO DAILY Multivitamin (Multivitamin), 1 TAB PO DAILY Pantoprazole Sodium (Protonix), 40 MG PO BID Potassium Chloride Microencaps (Potassium Chloride Er), 20 MEQ PO QAM Sulfa/Trimethoprim (Bactrim Ds 800MG/160MG), 1 TAB PO DAILY Topiramate (Topiramate), 100 MG PO BID Scheduled PRN Albuterol Hfa (Ventolin Hfa), 2 PUFFS PO QID PRN for SOB/Wheezing Oxycodone Ir (Roxicodone Ir), 1-2 TAB PO Q4H PRN for Pain Review of Systems Cannot presently obtain a reliable ROS - pt does not know what transpired earlier Constitutional: + weakness, + fatigue Physical Exam Vital Signs Date Time Temp Pulse Resp B/P (MAP) Pulse Ox O2 Delivery O2 Flow Rate FiO2 08/14/17 00:45 97 Free Flow/[place] 08/14/17 00:37 35.2 08/14/17 00:32 126/66 08/14/17 00:23 85 15 98 08/14/17 00:04 143/88 08/13/17 23:53 88 29 93 Room Air 08/13/17 23:51 86 18 131/60 97 Room Air 08/13/17 23:32 131/60 General Appearance: + pertinent finding (overweight, middle-aged female - appears distressed due to vomiting) Head: normocephalic, atraumatic Eyes: normal inspection, PERRL ENT: normal ENT inspection, pharynx normal Neck: supple, no JVD Respiratory/Chest: chest non-tender, lungs clear, normal breath sounds Cardiovascular: regular rate, rhythm, no edema, no gallop Abdomen/GI: normal bowel sounds, non tender, soft Back: normal inspection, no CVA tenderness, no muscle spasm, normal range of motion Extremities/Musculoskelatal: normal inspection, no calf tenderness, normal capillary refill Neurologic/Psych: director personal II-XII nml as tested, no motor/sensory deficits, + pertinent finding (slow to answer questions - she is able to answer appropriately when getting around to it - speech is clear) Skin: normal color, warm/dry, no rash Diagnostics Laboratory Results Results Past 24 Hours Test 08/13/17 23:31 08/13/17 23:59 08/14/17 00:00 08/14/17 00:04 Range/Units Bedside Glucose 143 70-90 mg/dl White Blood Count 7.65 4.8-10.8 K/uL Red Blood Count 3.94 4.2-5.4 M/uL Hemoglobin 11.5 12.0-16.0 g/dL Hematocrit 34.7 37-47 % Mean Corpuscular Volume 88.1 80-100 fL Mean Corpuscular Hemoglobin 29.2 25-34 pg Mean Corpuscular Hemoglobin Concent 33.1 32-36 g/dl Platelet Count 187 130-400 K/uL Mean Platelet Volume 10.9 7.4-10.4 fL Neutrophils (%) (Auto) 72.1 % Lymphocytes (%) (Auto) 19.2 % Monocytes (%) (Auto) 5.8 % Eosinophils (%) (Auto) 2.1 % Basophils (%) (Auto) 0.4 % Neutrophils # (Auto) 5.52 1.4-6.5 K/uL Lymphocytes # (Auto) 1.47 1.2-3.4 K/uL Monocytes # (Auto) 0.44 0.11-0.59 K/uL Eosinophils # (Auto) 0.16 0-0.5 K/uL Basophils # (Auto) 0.03 0-0.2 K/uL RDW Standard Deviation 47.0 36.4-46.3 fL RDW Coefficient of Variation 14.4 11.5-14.5 % Immature Granulocyte % (Auto) 0.4 % Immature Granulocyte # (Auto) 0.03 0.00-0.02 K/uL Sodium Level 144 136-145 mmol/L Potassium Level 2.6 3.5-5.1 mmol/L Chloride Level 111 98-107 mmol/L Carbon Dioxide Level 18 21-32 mmol/L Anion Gap 15.0 3-11 mmol/L Blood Urea Nitrogen 8 7-18 mg/dl Creatinine 1.20 0.60-1.20 mg/dl Est Creatinine Clear Calc Drug Dose 58.2 ml/min Estimated GFR () 53.8 Estimated GFR (Non- 46.4 BUN/Creatinine Ratio 6.7 10-20 Random Glucose 149 70-99 mg/dl Calcium Level 9.2 8.5-10.1 mg/dl Magnesium Level 2.0 1.8-2.4 mg/dl Total Bilirubin 0.5 0.2-1 mg/dl Direct Bilirubin 0.2 0-0.2 mg/dl Aspartate Amino Transf (AST/SGOT) 14 15-37 U/L Alanine Aminotransferase (ALT/SGPT) 9 12-78 U/L Alkaline Phosphatase 119 45-117 U/L Total Creatine Kinase 161 26-192 U/L Creatine Kinase MB 0.8 0.5-3.6 ng/ml Creatine Kinase MB Ratio 0.5 0-3.0 Troponin I < 0.015 0-0.045 ng/ml Total Protein 7.4 6.4-8.2 gm/dl Albumin 4.0 3.4-5.0 gm/dl Bedside Lactic Acid Arterial 3.43 0.36-1.25 mmol/L Bedside Troponin I < 0.030 0-0.045 ng/ml Test 08/14/17 00:15 Range/Units Urine Color YELLOW Urine Appearance TURBID CLEAR Urine pH 8.0 4.5-7.5 Urine Specific [place] 1.014 1.000-1.030 Urine Protein NEG NEG Urine Glucose (UA) NEG NEG Urine Ketones TRACE NEG Urine Occult Blood NEG NEG Urine Nitrite NEG NEG Urine Bilirubin NEG NEG Urine Urobilinogen NEG NEG Urine Leukocyte Esterase NEG NEG Urine WBC (Auto) 1-5 0-5 /hpf Urine RBC (Auto) 0-4 0-4 /hpf Urine Hyaline Casts (Auto) 10-30 0-5 /lpf Urine Epithelial Cells (Auto) >30 0-5 /lpf Urine Bacteria (Auto) NEG NEG Urine Renal Epithelial Cells 0-5 /lpf Urine Crystals AMORPHOUS SEDIMENT NONE PRSENT Urine Pathogenic Casts 1-5 GRANULAR CASTS 0 /lpf Urine Mucus PRESENT NONE PRSENT Microbiology Results 08/14/17 Blood Culture, Ordered Pending Diagnostic Radiology CT head, CXR WNL Impression Assessment and Plan 67 y/o F Hx seizure disorder, asthma, atrial fibrillation. Pt was brought in by EMS after she had activated her life alert system. She was found on the floor of her home yelling - possibly in pain - and appeared disoriented. She was unable to provide any information as to what may have transpired. The pt was exhibiting continuos dry-heaving in the ER. An initial temp was 35. Labs were notable for hypokalemia and elevated lactic acid. She gradually regained a degree of orientation but continued to have a poor recollection of the days events. She states that she was weak and shaking only. 1) Altered mental status - pt may be post-ictal - we have no present source or clear evidence of infection. Pt will be monitored on telemetry. TSH and anticonvulsion med levels are pending. We will check an amylase and lipase due to persistent retching, As she takes daily Eliquis and was found on the floor, we will repeat a CT head AM. She was provided with a dose of Zosyn in the ER. We will place her on Ceftriaxone pending blood culture results or evidence of improvement as we do not have an infection source. 2) Hypothermia - reason is not clear as it has been warm today - no clear infection source - placed on telemetry with a Michaela hugger and hourly temp checks until temp exceeds 36.5. 3) AF - rate is controlled 4) Asthma - no acute exacerbation. 5) Seizure disorder - cont prescribed meds - levels pending 6) Hypokalemia - replaced Full code - Eliquis prophylaxis Total time for this admit including review of labs, meds, imaging - discussion with ER attending - 39 min Level of Care Telemetry Resuscitation Status FULL RESUSCITATION VTE Prophylaxis VTE Risk Assessment Done? Y/N: Yes Risk Level: Moderate Given or contraindicated: Other Anticoagulation
[2017-08-14] MEDS ORDERED: LORAZEPAM 2 MG/ML 1 ML VIAL IV PRN (01:45)
[2017-08-14 02:08] LABS: AMYLASE 51 U/L (25-115)
[2017-08-14] MEDS: POTASSIUM CHLR 10 MEQ / WTR 10 MEQ in PREMIXED WATER 100 ML IV SCH ×2 (03:39→04:41)
[2017-08-14] MEDS: NSS + 20MEQ KCL 1000ML 1,000 ML IV SCH ×2 (03:40→12:12)
[2017-08-14] MEDS: ONDANSETRON INJ 2 MG/ML 2 ML VIAL IV PRN ×2 (04:24→18:28)
[2017-08-14] MEDS: CEFTRIAXONE SOD INJ 1 GM in DEXTROSE 5% ADD-VANTAGE 50ML 50 ML IV SCH (05:45)
--- NOTE | 2017-08-14 06:05 | DIAGNOSTIC IMAGING REPORT ---
CHEST ONE VIEW PORTABLE CLINICAL HISTORY: AMS dyspnea COMPARISON STUDY: 07/02/2017 FINDINGS: Moderate prominence of pulmonary vasculature. Mild cardiomegaly. External hernia. IMPRESSION: Early congestive heart failure The above report was generated using voice recognition software. It may contain grammatical, syntax or spelling errors. Electronically signed by: Liu Collins M.D. 08/14/2017 6:04 AM Dictated Date/Time: 08/14/2017 6:03 AM
--- NOTE | 2017-08-14 06:10 | DIAGNOSTIC IMAGING REPORT ---
HEAD WITHOUT CONTRAST (CT) CT DOSE: 589.69 mGy.cm HISTORY: Altered mental status AMS TECHNIQUE: Multiaxial CT images of the head were performed without the use of intravenous contrast. A dose lowering technique was utilized adhering to the principles of ALARA. Comparison: 12/26/2016 Findings: The paranasal sinuses and mastoid air cells are clear. The calvarium and skull base are intact. The ventricles and sulci are within normal limits. There is no mass, hematoma, midline shift, or acute infarct. Mild chronic small vessel change of aging Impression: No acute intracranial abnormality. Mild age-related chronic small vessel change. The above report was generated using voice recognition software. It may contain grammatical, syntax or spelling errors. Electronically signed by: Liu Collins M.D. 08/14/2017 6:09 AM Dictated Date/Time: 08/14/2017 6:09 AM
[2017-08-14] MEDS ORDERED: INFLUENZA ADMINISTRATION CHARGE ONE (08:00)
[2017-08-14] MEDS ORDERED: INFLUENZA VACCINE HIGH DOSE 65+ 0.5 ML SYR IM. ONE (08:00)
[2017-08-14 08:31] LABS: HEMATOCRIT 32.1 % (37-47); MEAN CELL VOLUME 88.9 fL (80-100); MEAN CORPUSCULAR HEMOGLOBIN 28.8 pg (25-34); MEAN CORPUSCULAR HGB CONC 32.4 g/dl (32-36); MEAN PLATELET VOLUME 11.1 fL (7.4-10.4); PLATELET COUNT 183 K/uL (130-400); RED BLOOD COUNT 3.61 M/uL (4.2-5.4); WHITE BLOOD COUNT 7.71 K/uL (4.8-10.8)
[2017-08-14] MEDS ORDERED: METOCLOPRAMIDE HCL 5 MG TAB PO SCH (09:00)
[2017-08-14] MEDS ORDERED: FUROSEMIDE 20 MG TAB PO SCH (09:00)
[2017-08-14 09:07] LABS: BUN/CREATININE RATIO 7.3 (10-20); CALCIUM 8.7 mg/dl (8.5-10.1); POTASSIUM 3.7 mmol/L (3.5-5.1)
[2017-08-14] MEDS: DOCUSATE SODIUM 100 MG CAP PO SCH ×2 (09:39→20:45)
[2017-08-14] MEDS: MAGNESIUM OXIDE 400 MG TAB PO SCH ×2 (09:39→20:46)
[2017-08-14] MEDS: METOPROLOL SUCC 25MG EXT REL TAB PO SCH (09:39)
[2017-08-14] MEDS: TOPIRAMATE 100 MG TAB PO SCH ×2 (09:39→20:47)
[2017-08-14] MEDS: PANTOprazole SOD 40 MG TAB PO SCH ×2 (09:39→20:46)
[2017-08-14] MEDS: LEVETIRACETAM 500 MG TAB PO SCH ×2 (09:39→20:45)
[2017-08-14] MEDS: LORAZEPAM 0.5 MG TAB PO SCH ×2 (09:39→20:45)
[2017-08-14] MEDS: POTASSIUM CHLORIDE 20 MEQ TABCR PO SCH (09:40)
[2017-08-14] MEDS: APIXABAN 2.5 MG TAB PO SCH ×2 (09:42→20:45)
--- NOTE | 2017-08-14 11:24 | DIAGNOSTIC IMAGING REPORT ---
HEAD WITHOUT CONTRAST (CT) CLINICAL HISTORY: 67 years-old Female with eval for bleed - follow-up due to possible hread trauma . Acute head injury status post trauma. TECHNIQUE: Multiple axial CT images of the head were obtained without contrast. A dose lowering technique was utilized adhering to the principles of ALARA. CT DOSE: 638.56 mGycm COMPARISON: CT head 08/13/2017.. FINDINGS: No acute intracranial hemorrhage, midline shift, abnormal extra-axial collections, hydrocephalus or intracranial mass. Senescent calcifications of lentiform nuclei are seen. Minimal periventricular white matter low-attenuation suggests chronic microvascular ischemic changes. There is no territorial ischemia identified. No skull fracture. Mastoid air cells and middle ear cavities and paranasal sinuses are clear. Soft tissues are unremarkable. IMPRESSION: No acute intracranial abnormality. The above report was generated using voice recognition software. It may contain grammatical, syntax or spelling errors. Electronically signed by: Shane Paulino M.D. 08/14/2017 11:23 AM Dictated Date/Time: 08/14/2017 11:21 AM
--- NOTE | 2017-08-14 15:13 | Progress Note ---
Progress Note Date of Service Aug 14, 2017. Progress Note Examined patient. Patient appears to be more awake after discussing case with patient's nurse. Patient speaks slowly, unsure if this is baseline. After reviweing labs, it does not appear that patient was in rhabdomyolysis which is good. Unpon further questioning patient states that she ran out of her meds for weeks now as she has not seen her PCP in over a year. On discharge patient will need to be seen by PCP and also have meds refilled. Will refer for neuro at this time.
[2017-08-14] MEDS: ACETAMINOPHEN 325 MG TAB PO PRN (23:35)
[2017-08-15] VITALS (7 sets, daily range): BP systolic 119–151; BP diastolic 70–94; PULSE 61–100; TEMP 36.4–37.3; O2SAT 95–99
[2017-08-15] MEDS ORDERED: KETOROLAC TROMETHAMINE 15 MG/ML VIAL IV. STA (04:04)
[2017-08-15] MEDS ORDERED: KETOROLAC TROMETHAMINE 30 MG/ML VIAL ONE (04:14)
[2017-08-15] MEDS: CEFTRIAXONE SOD INJ 1 GM in DEXTROSE 5% ADD-VANTAGE 50ML 50 ML IV SCH (05:47)
--- NOTE | 2017-08-15 07:05 | Clinical Documentation Query ---
LILIANA Sidhu : CLINICAL DOCUMENTATION QUERY Patient is a 67 year old female admitted for evaluation of an "altered mental status". H&P notes (the patient) "may be post-ictal". This cannot be interpreted by the correctional corporal to mean s/p seizure. As appropriate, consider clarification as suggested below in order to capture clinical diagnoses supported by presenting symptoms. Thank you. In your clinical opinion is this patient being managed for: ( ) Seizures with post-ictal encephalopathy ( ) Not Agree ( ) Other explanation of clinical findings (Please Explain) ( ) Unable to determine (Please Define) ( ) Need to Discuss The medical record reflects the following clinical findings, treatment, and risk factors. Clinical Indicators: AMS, seizure history, report of medication non-compliance Treatment: Telemetry, neurology consult, CT scan of the head Risk Factors: Seizure history, non-compliance with medication regimen Please clarify and document your clinical opinion in the progress notes and discharge summary. Terms such as "probable", "suspected", "likely", "questionable", "possible", or "still to be ruled out" are acceptable. IF IN AGREEMENT, YOU MUST DOCUMENT ABOVE DIAGNOSTIC STATEMENT IN DAILY PROGRESS NOTES AND DISCHARGE SUMMARY. This document is not part of the patient's record. Thank You, Oliverio López, NAYELI [phone]
[2017-08-15 07:47] LABS: MEAN CELL VOLUME 89.1 fL (80-100); MEAN CORPUSCULAR HEMOGLOBIN 28.4 pg (25-34); MEAN CORPUSCULAR HGB CONC 31.9 g/dl (32-36); MEAN PLATELET VOLUME 11.2 fL (7.4-10.4); PLATELET COUNT 172 K/uL (130-400); RED BLOOD COUNT 3.59 M/uL (4.2-5.4); WHITE BLOOD COUNT 5.16 K/uL (4.8-10.8)
[2017-08-15 08:10] LABS: BUN/CREATININE RATIO 4.9 (10-20); CALCIUM 8.7 mg/dl (8.5-10.1); CREATININE 0.99 mg/dl (0.60-1.20); POTASSIUM 3.6 mmol/L (3.5-5.1)
[2017-08-15] MEDS: DOCUSATE SODIUM 100 MG CAP PO SCH ×2 (08:54→20:18)
[2017-08-15] MEDS: LORAZEPAM 0.5 MG TAB PO SCH ×2 (08:54→20:27)
[2017-08-15] MEDS: APIXABAN 2.5 MG TAB PO SCH ×2 (08:55→20:20)
[2017-08-15] MEDS: LEVETIRACETAM 500 MG TAB PO SCH ×2 (08:55→20:19)
[2017-08-15] MEDS: POTASSIUM CHLORIDE 20 MEQ TABCR PO SCH (08:55)
[2017-08-15] MEDS: PANTOprazole SOD 40 MG TAB PO SCH ×2 (08:55→20:19)
[2017-08-15] MEDS: MAGNESIUM OXIDE 400 MG TAB PO SCH ×2 (08:55→20:19)
[2017-08-15] MEDS: METOPROLOL SUCC 25MG EXT REL TAB PO SCH (08:55)
[2017-08-15] MEDS: TOPIRAMATE 100 MG TAB PO SCH ×2 (08:55→20:21)
--- NOTE | 2017-08-15 10:03 | Neurology Consultation ---
Neurology Consultation Date of Consultation: Aug 15, 2017. Attending Physician: Antonio Rawls M.D. Primary Care Physician: Marcelo Escoto M.D. Reason for Consultation: "Syncope, history of seizure" History of Present Illness Source: patient, clinic records, hospital records The patient is a 67 year old female who has been following inconsistently with Dr. Ardon and Marni Perera for several years for management of seizure disorder and migraines. She has missed her last few appointments in the neurology clinic and was last seen by Marni Perera on 09/27/2016. She was diagnosed with a seizure disorder many years ago. She is prescribed both Keppra and Lamictal for seizure control. She is prescribed Topamax for her migraines. In looking through the outpatient record, it appears as if her seizures have been considered stable with previous outpatient follow-up visits. The description of her previous episodes is not readily available, however. Furthermore, the patient may have a mild dementia and seems to be an unreliable historian. She does have a visiting home nurse who apparently suggested the patient that her medications were running low. In fact, the patient admits that she ran out of her medications about 5 days ago and was intending to call the office for an appointment. She denies having any significant confusion at the time of her presentation in spite of documentation indicating to the contrary. According to the emergency department record, the patient was found lying on the floor crying. She apparently did not answer questions or follow commands. Yet, she appeared to be conscious but simply was unresponsive. She may been having some dry heaves in the emergency department. She was noted to be somewhat hypothermic and also had hypokalemia and was a bit acidotic as well. Past medical history notable for seizure disorder, migraines, hypertension, spinal stenosis, and atrial fibrillation. She is prescribed Xarelto. I reviewed the images as well as the radiologist's interpretation of a CT of the head completed at the time of presentation as well as a subsequent CT of the head completed approximate 10 hours later. No evidence of hemorrhage or other acute process on the studies. No significant abnormalities observed. Electrocardiogram reveals atrial fibrillation. Creatine kinase 161, normal. Anticonvulsant levels are pending. An electroencephalogram completed in January 2015 revealed mild background slowing but no epileptiform abnormalities. Past Medical/Surgical History Medical Problems: (1) Altered mental status Status: Acute (2) Atrial flutter Status: Acute (3) Back strain Status: Acute (4) Bloody stool Status: Acute (5) Cellulitis and abscess of left leg Status: Acute (6) Diffuse pain Status: Acute (7) Epigastric abdominal pain Status: Acute (8) Forearm abrasion Status: Acute (9) Headache Status: Acute (10) Headache Status: Acute (11) Headache above the eye region Status: Acute (12) Hypertension Status: Acute (13) Hypokalemia Status: Acute (14) Hypothermia Status: Acute (15) Lactic acidosis Status: Acute (16) Left against medical advice Status: Acute (17) Left sided chest pain Status: Acute (18) Left sided chest pain Status: Acute (19) Lower abdominal pain Status: Acute (20) Malaise Status: Acute (21) Pain and swelling of left lower leg Status: Acute (22) Sore throat Status: Acute (23) Spasm of back muscles Status: Acute (24) Substernal chest pain Status: Acute Family History There is a family history of heart disease, hypertension, and seizure disorder Father: heart disease Mother: pertinent history of Social History Smoking Status: Never smoker Drug Use: none Marital Status: single Housing Status: lives alone Occupation Status: retired Allergies Coded Allergies: Adhesives (Verified Adverse Reaction, Unknown, ITCHY, 07/01/17) Current Inpatient Medications Current Inpatient Medications Medications (Trade) Dose Ordered Sig/Galileo Route Start Time Stop Time Status Last Admin Dose Admin Docusate Sodium (coLACE CAP) 100 mg BID PO 08/14/17 09:00 09/13/17 08:59 08/15/17 08:54 100 MG Lamotrigine (Lamictal Tab) 100 mg BID PO 08/14/17 09:00 09/13/17 08:59 08/15/17 08:55 100 MG Lamotrigine (Lamictal Tab) 200 mg BID PO 08/14/17 09:00 09/13/17 08:59 08/15/17 08:55 200 MG Levetiracetam (Keppra Tab) 500 mg BID PO 08/14/17 09:00 09/13/17 08:59 08/15/17 08:55 500 MG Lorazepam (Ativan Tab) 0.5 mg BID PO 08/14/17 09:00 09/13/17 08:59 08/15/17 08:54 0.5 MG Magnesium Oxide (Mag-Ox Tab) 400 mg BID PO 08/14/17 09:00 09/13/17 08:59 08/15/17 08:55 400 MG Metoprolol Succinate (Toprol Xl Tab) 25 mg DAILY PO 08/14/17 09:00 09/13/17 08:59 08/15/17 08:55 25 MG Pantoprazole Sodium (Protonix Tab) 40 mg BID PO 08/14/17 09:00 09/13/17 08:59 08/15/17 08:55 40 MG Potassium Chloride (Klor-Con Tab) 20 meq QAM PO 08/14/17 09:00 09/13/17 08:59 08/15/17 08:55 20 MEQ Topiramate (Topamax Tab) 100 mg BID PO 08/14/17 09:00 09/13/17 08:59 08/15/17 08:55 100 MG Apixaban (Eliquis Tab) 5 mg BID PO 08/14/17 09:00 09/13/17 08:59 08/15/17 08:55 5 MG Albuterol Sulfate (Ventolin 0.083% 2.5MG/3ML Neb) 2.5 mg Q4H PRN INH 08/14/17 00:45 09/13/17 00:44 Ceftriaxone Sodium 1 gm/ Dextrose 50 ml @ 100 mls/hr Q24H IV 08/14/17 06:00 08/28/17 05:59 08/15/17 05:47 100 MLS/HR Acetaminophen (Tylenol Tab) 650 mg Q4H PRN PO 08/14/17 01:15 09/13/17 01:14 08/14/17 23:35 650 MG Al Hydrox/Mg Hydrox/Simethicone (Maalox Max Susp) 15 ml Q4H PRN PO 08/14/17 01:15 09/13/17 01:14 Magnesium Hydroxide (Milk Of Magnesia Susp) 30 ml Q12H PRN PO 08/14/17 01:15 09/13/17 01:14 Ondansetron HCl (Zofran Inj) 4 mg Q6H PRN IV 08/14/17 01:15 09/13/17 01:14 08/14/17 18:28 4 MG Nitroglycerin (Nitrostat Tab) 0.4 mg UD PRN SL 08/14/17 01:15 09/13/17 01:14 Morphine Sulfate (MoRPHine SULFATE INJ) 2 mg Q30M PRN IV 08/14/17 01:15 08/28/17 01:14 Polyethylene (Miralax Powder Packet) 17 gm DAILY PRN PO 08/14/17 01:15 09/13/17 01:14 Lorazepam (Ativan Inj) 2 mg Q4H PRN IV 08/14/17 01:45 09/13/17 01:44 Review of Systems Constitutional: No fever or chills Eyes: No vision loss or diplopia ENT: No hearing loss or vertigo Cardiovascular: No chest pain or palpitations Respiratory: No coughing wheezing or shortness of breath Neurological: As per history of present illness, patient denies headache at this time. A full 10 point review of systems was obtained from this patient with pertinent positives and negatives described in history of present illness and otherwise listed above. All remaining systems reviewed and are negative. Physical Exam Vital Signs (Past 24 Hrs): Date Time Temp Pulse Resp B/P (MAP) Pulse Ox O2 Delivery O2 Flow Rate FiO2 08/15/17 07:47 36.8 61 20 151/94 (113) 95 Room Air 08/15/17 04:00 Room Air 08/15/17 03:23 36.9 76 20 122/70 (87) 96 Room Air 08/14/17 23:59 Room Air 08/14/17 23:32 36.9 66 20 125/76 (92) 92 Room Air 08/14/17 20:00 95 Room Air 08/14/17 19:22 36.7 86 19 120/58 (78) 96 Room Air 08/14/17 16:00 96 Room Air 08/14/17 15:46 36.8 88 18 131/70 (90) 97 08/14/17 12:00 Room Air 08/14/17 11:57 36.8 80 20 123/81 (95) 97 Room Air 08/14/17 09:59 Room Air The patient is a well-developed, well-nourished, elderly female. She is sitting up comfortably in bed and in no acute distress. She is alert and oriented to person and place only. She is not oriented to the date or day of the week. She has some impairment of recent memory recall 0 out of 3 objects with delayed recall testing. Remote memory seems to be intact. Attention seems normal although there is some impairment of attention. Patient has difficulty following multistep commands. She exhibits a normal spontaneous speech pattern. She is able to name objects and repeat phrases. Patient exhibits an age- appropriate fund of knowledge regarding general vocabulary. Visual benítez full to confrontation. Visual acuity normal. Pupils equal round reactive to light and accommodation. Eye movements normal. Facial sensation intact bilaterally. There is normal facial symmetry and strength. No facial droop. Hearing intact to finger rub bilaterally. Palate elevates to midline. Shoulder shrug intact bilaterally. Tongue protrudes to midline. Sensation intact to light touch, temperature, vibration, and proprioception for all 4 limbs. Deep tendon reflexes are intact and symmetrical for the arms and legs there is no dysdiadochokinesia or dysmetria with finger to nose or heel to foote bilaterally. Ophthalmoscopic examination reveals normal-appearing optic disks and posterior segments. No papilledema or hemorrhages. Normal carotid pulses bilaterally, no bruits to auscultation. Patient refuses to stand or walk and thus gait cannot be tested. Muscle strength is normal for the arms and legs bilaterally. Muscle tone normal throughout. No atrophy. No abnormal movements observed. Laboratory Results Past 24 Hours: 08/15/17 07:14 08/15/17 07:14 Test 08/15/17 07:14 Red Blood Count 3.59 M/uL (4.2-5.4) Mean Corpuscular Volume 89.1 fL (80-100) Mean Corpuscular Hemoglobin 28.4 pg (25-34) Mean Corpuscular Hemoglobin Concent 31.9 g/dl (32-36) RDW Standard Deviation 48.6 fL (36.4-46.3) RDW Coefficient of Variation 14.8 % (11.5-14.5) Mean Platelet Volume 11.2 fL (7.4-10.4) Anion Gap 9.0 mmol/L (3-11) Est Creatinine Clear Calc Drug Dose 71.9 ml/min Estimated GFR () 67.9 Estimated GFR (Non- 58.6 BUN/Creatinine Ratio 4.9 (10-20) Calcium Level 8.7 mg/dl (8.5-10.1) Impression This is a 67-year-old female with a history of seizure disorder diagnosed many years ago for which she has been following intermittently with Dr. Ardon. She has missed her past few appointments, however and indicates that she ran out of her medications 5 days ago. Truthfully, it is not really clear to me what happened to this patient at home. She may have had a seizure related to reported noncompliance with her anticonvulsants. However, her CK is normal which may argue against a recent generalized convulsive episode. She does appear to be mildly confused and may have a mild, chronic dementia. However, her mental status may also be affected by recent metabolic factors including acidosis and hypokalemia further compounded by hypothermia at the time of presentation. There does not appear to be any evidence of hemorrhage or other acute process on the recently completed head CTs. furthermore, given this patient's history of atrial fibrillation and reported noncompliance with her medications, I'm unable to completely exclude an acute or subacute stroke. Plan This patient should have a brain MRI completed to exclude acute or subacute stroke. I would include a carotid ultrasound as well. An up-to-date EEG would also be useful. Continue current anticonvulsant regimen. This patient will need to follow-up with Dr. Ardon in neurology clinic for ongoing management of her seizures and migraines. Please contact me if I may be of further assistance.
[2017-08-15] MEDS ORDERED: NURSING VERBAL MED ORDER ONE (16:45)
--- NOTE | 2017-08-15 22:27 | DIAGNOSTIC IMAGING REPORT ---
CAROTID DOPPLER NECK ART HISTORY: Mental status change confusion, possible stroke COMPARISON: 05/29/2015 TECHNIQUE: Real-time, grayscale, and color Doppler sonography of the carotid arteries was performed. Imaging reviewed in the transverse and longitudinal planes. All measurements were calculated based on NASCET criteria. FINDINGS: Antegrade flow is seen in the bilateral vertebral arteries. The brachial pressures are hemodynamically similar. Mild plaque formation bilaterally The peak systolic velocity within the right ICA is 84. The right systolic ratio is 1.3. The peak systolic velocity within the left ICA is 81. The left systolic ratio is 0.9. IMPRESSION: No hemodynamically significant stenosis seen within the carotid arteries. Mild plaque formation bilaterally The above report was generated using voice recognition software. It may contain grammatical, syntax or spelling errors. Electronically signed by: Liu Collins M.D. 08/15/2017 10:26 PM Dictated Date/Time: 08/15/2017 10:25 PM
[2017-08-16] VITALS (7 sets, daily range): BP systolic 104–159; BP diastolic 58–85; PULSE 73–97; TEMP 36.9–38.3; O2SAT 94–100
[2017-08-16] MEDS: ACETAMINOPHEN 325 MG TAB PO PRN (03:45)
--- NOTE | 2017-08-16 06:10 | Progress Note ---
Subjective Date of Service: Aug 15, 2017. Subjective Pt evaluation today including: conversation w/ patient, conversation w/ family , physical exam, lab review I examined patient today on . Electronic System was down and unable to complete note on this date. Problem List Medical Problems: (1) Altered mental status Status: Acute (2) Atrial flutter Status: Acute (3) Back strain Status: Acute (4) Bloody stool Status: Acute (5) Cellulitis and abscess of left leg Status: Acute (6) Diffuse pain Status: Acute (7) Epigastric abdominal pain Status: Acute (8) Forearm abrasion Status: Acute (9) Headache Status: Acute (10) Headache Status: Acute (11) Headache above the eye region Status: Acute (12) Hypertension Status: Acute (13) Hypokalemia Status: Acute (14) Hypothermia Status: Acute (15) Lactic acidosis Status: Acute (16) Left against medical advice Status: Acute (17) Left sided chest pain Status: Acute (18) Left sided chest pain Status: Acute (19) Lower abdominal pain Status: Acute (20) Malaise Status: Acute (21) Pain and swelling of left lower leg Status: Acute (22) Sore throat Status: Acute (23) Spasm of back muscles Status: Acute (24) Substernal chest pain Status: Acute Review of Systems Constitutional: No fever, No chills Respiratory: No cough, No sputum Cardiac: No chest pain, No orthopnea Abdomen: No pain, No nausea Female : No dysuria, No urinary frequency Neurologic: + memory loss, No paralysis Psychiatric: No depression symptoms, No anhedonism All Other Systems: Reviewed and Negative Medications Current Inpatient Medications Medications (Trade) Dose Ordered Sig/Galileo Route Start Time Stop Time Status Last Admin Dose Admin Docusate Sodium (coLACE CAP) 100 mg BID PO 08/14/17 09:00 09/13/17 08:59 08/15/17 20:18 100 MG Lamotrigine (Lamictal Tab) 100 mg BID PO 08/14/17 09:00 09/13/17 08:59 08/15/17 20:20 100 MG Lamotrigine (Lamictal Tab) 200 mg BID PO 08/14/17 09:00 09/13/17 08:59 08/15/17 20:21 200 MG Levetiracetam (Keppra Tab) 500 mg BID PO 08/14/17 09:00 09/13/17 08:59 08/15/17 20:19 500 MG Lorazepam (Ativan Tab) 0.5 mg BID PO 08/14/17 09:00 09/13/17 08:59 08/15/17 20:27 0.5 MG Magnesium Oxide (Mag-Ox Tab) 400 mg BID PO 08/14/17 09:00 09/13/17 08:59 08/15/17 20:19 400 MG Metoprolol Succinate (Toprol Xl Tab) 25 mg DAILY PO 08/14/17 09:00 09/13/17 08:59 08/15/17 08:55 25 MG Pantoprazole Sodium (Protonix Tab) 40 mg BID PO 08/14/17 09:00 09/13/17 08:59 08/15/17 20:19 40 MG Potassium Chloride (Klor-Con Tab) 20 meq QAM PO 08/14/17 09:00 09/13/17 08:59 08/15/17 08:55 20 MEQ Topiramate (Topamax Tab) 100 mg BID PO 08/14/17 09:00 09/13/17 08:59 08/15/17 20:21 100 MG Apixaban (Eliquis Tab) 5 mg BID PO 08/14/17 09:00 09/13/17 08:59 08/15/17 20:20 5 MG Albuterol Sulfate (Ventolin 0.083% 2.5MG/3ML Neb) 2.5 mg Q4H PRN INH 08/14/17 00:45 09/13/17 00:44 Acetaminophen (Tylenol Tab) 650 mg Q4H PRN PO 08/14/17 01:15 09/13/17 01:14 08/16/17 03:45 650 MG Al Hydrox/Mg Hydrox/Simethicone (Maalox Max Susp) 15 ml Q4H PRN PO 08/14/17 01:15 09/13/17 01:14 Magnesium Hydroxide (Milk Of Magnesia Susp) 30 ml Q12H PRN PO 08/14/17 01:15 09/13/17 01:14 Ondansetron HCl (Zofran Inj) 4 mg Q6H PRN IV 08/14/17 01:15 09/13/17 01:14 08/14/17 18:28 4 MG Nitroglycerin (Nitrostat Tab) 0.4 mg UD PRN SL 08/14/17 01:15 09/13/17 01:14 Morphine Sulfate (MoRPHine SULFATE INJ) 2 mg Q30M PRN IV 08/14/17 01:15 08/28/17 01:14 Polyethylene (Miralax Powder Packet) 17 gm DAILY PRN PO 08/14/17 01:15 09/13/17 01:14 Lorazepam (Ativan Inj) 2 mg Q4H PRN IV 08/14/17 01:45 09/13/17 01:44 Objective Vital Signs Date Time Temp Pulse Resp B/P (MAP) Pulse Ox O2 Delivery O2 Flow Rate FiO2 08/16/17 04:00 Room Air 08/16/17 03:26 38.3 97 20 159/80 (106) 100 Room Air 08/15/17 23:59 Room Air 08/15/17 23:56 37.3 100 22 141/72 (95) 96 Room Air 08/15/17 20:00 96 Room Air 08/15/17 20:00 36.4 76 17 124/72 (89) 96 Room Air 08/15/17 16:00 97 Room Air 08/15/17 15:49 36.8 80 16 119/78 (92) 97 Room Air 08/15/17 12:00 Room Air 08/15/17 11:35 36.7 70 18 141/78 (99) 99 Room Air 08/15/17 08:00 Room Air 08/15/17 07:47 36.8 61 20 151/94 (113) 95 Room Air Physical Exam General Appearance: WD/WN, no apparent distress Eyes: normal inspection, PERRL ENT: normal ENT inspection Neck: supple, no adenopathy, thyroid normal Respiratory/Chest: chest non-tender, lungs clear, normal breath sounds Cardiovascular: regular rate, rhythm, no edema, no gallop Abdomen: normal bowel sounds, non tender, + hernia, + pertinent finding ( surgical scars noted in R side of abdomen) Extremities: normal range of motion, non-tender Neurologic/Psychiatric: alert, normal mood/affect, oriented x 3, + pertinent finding (4+ in left upper extremty. All others were 5/5) Skin: normal color Laboratory Results Last 24 Hours Test 08/15/17 07:14 White Blood Count 5.16 K/uL Red Blood Count 3.59 M/uL Hemoglobin 10.2 g/dL Hematocrit 32.0 % Mean Corpuscular Volume 89.1 fL Mean Corpuscular Hemoglobin 28.4 pg Mean Corpuscular Hemoglobin Concent 31.9 g/dl RDW Standard Deviation 48.6 fL RDW Coefficient of Variation 14.8 % Platelet Count 172 K/uL Mean Platelet Volume 11.2 fL Sodium Level 145 mmol/L Potassium Level 3.6 mmol/L Chloride Level 115 mmol/L Carbon Dioxide Level 21 mmol/L Anion Gap 9.0 mmol/L Blood Urea Nitrogen 5 mg/dl Creatinine 0.99 mg/dl Est Creatinine Clear Calc Drug Dose 71.9 ml/min Estimated GFR () 67.9 Estimated GFR (Non- 58.6 BUN/Creatinine Ratio 4.9 Random Glucose 87 mg/dl Calcium Level 8.7 mg/dl Assessment and Plan 67 yo female with altered mental status. Unsure of etiology. Likely multifactorial Patient ran out of medications for about 1 week. Though patient has h/o seizures, normal ck rules this out. Neuro would like patient to have EEG, MRI and carotid dopplers. Ordered to remove IJ as patient does not require IV access at this time. Will also stop antibiotics given no source of infection. DVT proph: SCD Continued [facility] stay due to: ambulation difficulties Discharge planning: uncertain
--- NOTE | 2017-08-16 06:11 | Progress Note ---
Subjective Date of Service: Aug 16, 2017. Subjective Please disregard this note Problem List Medical Problems: (1) Altered mental status Status: Acute (2) Atrial flutter Status: Acute (3) Back strain Status: Acute (4) Bloody stool Status: Acute (5) Cellulitis and abscess of left leg Status: Acute (6) Diffuse pain Status: Acute (7) Epigastric abdominal pain Status: Acute (8) Forearm abrasion Status: Acute (9) Headache Status: Acute (10) Headache Status: Acute (11) Headache above the eye region Status: Acute (12) Hypertension Status: Acute (13) Hypokalemia Status: Acute (14) Hypothermia Status: Acute (15) Lactic acidosis Status: Acute (16) Left against medical advice Status: Acute (17) Left sided chest pain Status: Acute (18) Left sided chest pain Status: Acute (19) Lower abdominal pain Status: Acute (20) Malaise Status: Acute (21) Pain and swelling of left lower leg Status: Acute (22) Sore throat Status: Acute (23) Spasm of back muscles Status: Acute (24) Substernal chest pain Status: Acute Objective Vital Signs Date Time Temp Pulse Resp B/P (MAP) Pulse Ox O2 Delivery O2 Flow Rate FiO2 08/16/17 04:00 Room Air 08/16/17 03:26 38.3 97 20 159/80 (106) 100 Room Air 08/15/17 23:59 Room Air 08/15/17 23:56 37.3 100 22 141/72 (95) 96 Room Air 08/15/17 20:00 96 Room Air 08/15/17 20:00 36.4 76 17 124/72 (89) 96 Room Air 08/15/17 16:00 97 Room Air 08/15/17 15:49 36.8 80 16 119/78 (92) 97 Room Air 08/15/17 12:00 Room Air 08/15/17 11:35 36.7 70 18 141/78 (99) 99 Room Air 08/15/17 08:00 Room Air 08/15/17 07:47 36.8 61 20 151/94 (113) 95 Room Air Laboratory Results Last 24 Hours Test 08/15/17 07:14 08/16/17 06:03 White Blood Count 5.16 K/uL Red Blood Count 3.59 M/uL Hemoglobin 10.2 g/dL Hematocrit 32.0 % Mean Corpuscular Volume 89.1 fL Mean Corpuscular Hemoglobin 28.4 pg Mean Corpuscular Hemoglobin Concent 31.9 g/dl RDW Standard Deviation 48.6 fL RDW Coefficient of Variation 14.8 % Platelet Count 172 K/uL Mean Platelet Volume 11.2 fL Sodium Level 145 mmol/L Potassium Level 3.6 mmol/L Chloride Level 115 mmol/L Carbon Dioxide Level 21 mmol/L Anion Gap 9.0 mmol/L Blood Urea Nitrogen 5 mg/dl Creatinine 0.99 mg/dl Est Creatinine Clear Calc Drug Dose 71.9 ml/min Estimated GFR () 67.9 Estimated GFR (Non- 58.6 BUN/Creatinine Ratio 4.9 Random Glucose 87 mg/dl Calcium Level 8.7 mg/dl Assessment and Plan 67 yo female with altered mental status. Unsure of etiology. Likely multifactorial Patient ran out of medications for about 1 week. Though patient has h/o seizures, normal ck rules this out. Neuro would like patient to have EEG, MRI and carotid dopplers. Ordered to remove IJ as patient does not require IV access at this time. Will also stop antibiotics given no source of infection. DVT proph: SCD Continued [facility] stay due to: ambulation difficulties Discharge planning: uncertain
--- NOTE | 2017-08-16 07:31 | DIAGNOSTIC IMAGING REPORT ---
BRAIN W/O FOR SEIZURE HISTORY: 67 years-old Female seizure disorder, change in mental status acute altered mental status with recent fall. COMPARISON: CT head 08/14/2017, MRI brain 12/30/2014 TECHNIQUE: Multiplanar multisequence MRI the brain was obtained without contrast utilizing institutional seizure protocol. FINDINGS: There is no restricted diffusion to suggest acute ischemia. The sagittal T1 sequence is very motion degraded. No pathologic blooming artifact seen. Senescent calcifications are seen within the basal ganglia. There is no acute intracranial hemorrhage, midline shift, abnormal extra-axial collections, intracranial mass or hydrocephalus. Minimal subcortical and periventricular T2/FLAIR prolongation suggests minimal chronic white matter changes. No seizure focus identified. There is mild volume loss of the right hippocampus compared to the left without abnormal signal characteristics, as seen on images 20 and 21 of series 12 which appears unchanged from comparison. There is mild background cerebral atrophy. Many the sequences are at least moderately motion degraded. Major flow voids at the level of the skull base appear patent. The bones are symmetric. Mastoid air cells are generally clear. There is minimal ethmoid sinus disease. IMPRESSION: 1. No acute intracranial abnormality. No acute ischemia or seizure focus identified. 2. Mild volume loss of the right hippocampus compared to the left without abnormal signal characteristics is unchanged from prior study. Mesial temporal sclerosis may be considered within the appropriate clinical setting. 3. Moderately limited study secondary to motion artifact. The above report was generated using voice recognition software. It may contain grammatical, syntax or spelling errors. Electronically signed by: Shane Paulino M.D. 08/16/2017 6:51 AM Dictated Date/Time: 08/16/2017 6:43 AM
[2017-08-16 07:48] LABS: BUN/CREATININE RATIO 7.7 (10-20); POTASSIUM 3.5 mmol/L (3.5-5.1)
[2017-08-16 08:23] LABS: URINE APPEARANCE CLEAR (CLEAR); URINE BILIRUBIN NEG (NEG); URINE COLOR YELLOW; URINE NITRITE NEG (NEG); URINE PH >= 9.0 (4.5-7.5); URINE SPECIFIC GRAVITY 1.008 (1.000-1.030); UROBILINOGEN NEG (NEG)
[2017-08-16 08:26] LABS: HEMATOCRIT 36.9 % (37-47); MEAN CELL VOLUME 87.6 fL (80-100); MEAN CORPUSCULAR HEMOGLOBIN 28.7 pg (25-34); MEAN CORPUSCULAR HGB CONC 32.8 g/dl (32-36); MEAN PLATELET VOLUME 11.1 fL (7.4-10.4); PLATELET COUNT 185 K/uL (130-400); RED BLOOD COUNT 4.21 M/uL (4.2-5.4); WHITE BLOOD COUNT 10.68 K/uL (4.8-10.8)
[2017-08-16 08:32] LABS: MANUAL MICROSCOPIC REQUIRED? NO; REVIEW REQ? NO
[2017-08-16] MEDS: LORAZEPAM 0.5 MG TAB PO SCH (08:56)
[2017-08-16] MEDS: DOCUSATE SODIUM 100 MG CAP PO SCH (08:56)
[2017-08-16] MEDS: PANTOprazole SOD 40 MG TAB PO SCH (08:57)
[2017-08-16] MEDS: TOPIRAMATE 100 MG TAB PO SCH (08:57)
[2017-08-16] MEDS: POTASSIUM CHLORIDE 20 MEQ TABCR PO SCH (08:57)
[2017-08-16] MEDS: LEVETIRACETAM 500 MG TAB PO SCH (08:57)
[2017-08-16] MEDS: MAGNESIUM OXIDE 400 MG TAB PO SCH (08:57)
[2017-08-16] MEDS: APIXABAN 2.5 MG TAB PO SCH (08:57)
[2017-08-16] MEDS: METOPROLOL SUCC 25MG EXT REL TAB PO SCH (08:58)
[2017-08-16] MEDS ORDERED: SULFAMETHOXAZOLE/TRIMETHOPRIM DS 800/160MG TAB PO SCH (11:30)
--- NOTE | 2017-08-16 12:30 | EEG Procedure Note ---
EEG Procedure Note Date of Service Aug 15, 2017. Start / End Times Start Time: 11:23 AM End Time: 11:43 AM Referring Physician Oliverio Holm History This is a 67-year-old female with a history of epilepsy. She presents in acute encephalopathy. EEG for further evaluation of possible seizure etiology. Home Medication List Scheduled Apixaban (Eliquis), 5 MG PO BID Ascorbic Acid (Ra Vitamin C), 500 MG PO QAM Docusate Sodium (Colace), 100 MG PO BID Estradiol Vaginal (Estrace), 0.25 APPL PV UD Ferrous Sulfate (Kp Ferrous Sulfate), 325 TAB PO BIDM Fluticasone Propionate (Nasal) (Flonase Allergy Relief), 2 SPRAY MORIS QAM Furosemide (Lasix), 20 MG PO QAM Ipratropium [place] (Nasal) (Ipratropium [place]), 2 SPRAYS MORIS TID Lamotrigine (Lamictal), 100 MG PO BID Lamotrigine (Lamictal), 200 MG PO BID Levetiractam (Levetiracetam), 500 MG PO BID Lorazepam (Ativan), 0.5 MG PO BID Magnesium Oxide (Mag-Ox), 400 MG PO BID Metoclopramide Hcl (Metoclopramide Hcl), 5 MG PO BID Metoprolol Succinate (Metoprolol Succinate ER), 25 MG PO DAILY Multivitamin (Multivitamin), 1 TAB PO DAILY Pantoprazole Sodium (Protonix), 40 MG PO BID Potassium Chloride Microencaps (Potassium Chloride Er), 20 MEQ PO QAM Sulfa/Trimethoprim (Bactrim Ds 800MG/160MG), 1 TAB PO DAILY Topiramate (Topiramate), 100 MG PO BID Scheduled PRN Albuterol Hfa (Ventolin Hfa), 2 PUFFS PO QID PRN for SOB/Wheezing Oxycodone Ir (Roxicodone Ir), 1-2 TAB PO Q4H PRN for Pain Inpatient Medication List Current Inpatient Medications Medications (Trade) Dose Ordered Sig/[place] Route Start Time Stop Time Status Last Admin Dose Admin Docusate Sodium (coLACE CAP) 100 mg BID PO 08/14/17 09:00 09/13/17 08:59 08/16/17 08:56 100 MG Lamotrigine (Lamictal Tab) 100 mg BID PO 08/14/17 09:00 09/13/17 08:59 08/16/17 08:57 100 MG Lamotrigine (Lamictal Tab) 200 mg BID PO 08/14/17 09:00 09/13/17 08:59 08/16/17 08:57 200 MG Levetiracetam (Keppra Tab) 500 mg BID PO 08/14/17 09:00 09/13/17 08:59 08/16/17 08:57 500 MG Lorazepam (Ativan Tab) 0.5 mg BID PO 08/14/17 09:00 09/13/17 08:59 08/16/17 08:56 0.5 MG Magnesium Oxide (Mag-Ox Tab) 400 mg BID PO 08/14/17 09:00 09/13/17 08:59 08/16/17 08:57 400 MG Metoprolol Succinate (Toprol Xl Tab) 25 mg DAILY PO 08/14/17 09:00 09/13/17 08:59 08/16/17 08:58 25 MG Pantoprazole Sodium (Protonix Tab) 40 mg BID PO 08/14/17 09:00 09/13/17 08:59 08/16/17 08:57 40 MG Potassium Chloride (Klor-Con Tab) 20 meq QAM PO 08/14/17 09:00 09/13/17 08:59 08/16/17 08:57 20 MEQ Topiramate (Topamax Tab) 100 mg BID PO 08/14/17 09:00 09/13/17 08:59 08/16/17 08:57 100 MG Apixaban (Eliquis Tab) 5 mg BID PO 08/14/17 09:00 09/13/17 08:59 08/16/17 08:57 5 MG Albuterol Sulfate (Ventolin 0.083% 2.5MG/3ML Neb) 2.5 mg Q4H PRN INH 08/14/17 00:45 09/13/17 00:44 Acetaminophen (Tylenol Tab) 650 mg Q4H PRN PO 08/14/17 01:15 09/13/17 01:14 08/16/17 03:45 650 MG Al Hydrox/Mg Hydrox/Simethicone (Maalox Max Susp) 15 ml Q4H PRN PO 08/14/17 01:15 09/13/17 01:14 Magnesium Hydroxide (Milk Of Magnesia Susp) 30 ml Q12H PRN PO 08/14/17 01:15 09/13/17 01:14 Ondansetron HCl (Zofran Inj) 4 mg Q6H PRN IV 08/14/17 01:15 09/13/17 01:14 08/14/17 18:28 4 MG Nitroglycerin (Nitrostat Tab) 0.4 mg UD PRN SL 08/14/17 01:15 09/13/17 01:14 Morphine Sulfate (MoRPHine SULFATE INJ) 2 mg Q30M PRN IV 08/14/17 01:15 08/28/17 01:14 Polyethylene (Miralax Powder Packet) 17 gm DAILY PRN PO 08/14/17 01:15 09/13/17 01:14 Lorazepam (Ativan Inj) 2 mg Q4H PRN IV 08/14/17 01:45 09/13/17 01:44 Trimethoprim/ Sulfamethoxazole (Septra Ds 800/ 160MG Tab) 1 tab QDB PO 08/16/17 11:30 09/15/17 07:29 08/16/17 12:13 1 TAB Description This is a 21 electrode EEG with a single channel dedicated to limited EKG. The electrodes were placed in accordance with the International 10-20 system. At the start of the recording the patient was in an awake state. Background was composed of predominantly theta frequencies with intermixed alpha and theta frequencies. Poorly organized anterior to posterior gradient. There was often a well formed symmetric moderate amplitude posterior alpha rhythm of 7-8 Hz that was reactive to eye opening and closure. Hyperventilation was not done. Intermittent photic stimulation at various frequencies produced no abnormalities. Sleep was indicated by symmetric sleep spindles. Interpretation This is an abnormal routine EEG secondary to mild background disorganization and slowing. There was no electrographic seizures or epileptiform discharges. Clinical Correlation This EEG indicates mild encephalopathy of nonspecific etiology.
--- NOTE | 2017-08-16 13:24 | Hospitalist Progress Note ---
Hospitalist Progress Note Date of Service Aug 16, 2017. (Dawna Beach ., PA-C) Subjective Pt evaluation today including: conversation w/ patient, physical exam, lab review, review of studies, review of inpatient medication list Patient sitting in bedside chair. States she is feeling well. Cannot elaborate on events that lead her to admission. Notes state she was not taking her medication for sometime. Asked her why and she denies this being true. Eating and drinking OK. PT recommending rehab- patient is NOT agreeable to this, stating "I will be homeless before I go to rehab." Spiked a fever overnight. Denies any s/s of infection. Patient denies any fever, chills, sweats, lightheadedness, dizziness, vision changes, CP, palpitations, edema, SOB, wheezing, cough, abdominal pain, nausea, vomiting, diarrhea, urinary symptoms, melena, numbness/tingling, weakness, muscle/joint pain, anxiety/depression, active bleeding, or new skin discoloration/changes. Revisited patient multiple times today due to threatening to leave AMA. Discussed w/ patient with NAYELI Mackey present, that medically I do not feel it is safe to be discharged home at this time. (Dawna Beach ., PA-C) Medications Current Inpatient Medications Medications (Trade) Dose Ordered Sig/Galileo Route Start Time Stop Time Status Last Admin Dose Admin Docusate Sodium (coLACE CAP) 100 mg BID PO 08/14/17 09:00 09/13/17 08:59 08/16/17 08:56 100 MG Lamotrigine (Lamictal Tab) 100 mg BID PO 08/14/17 09:00 09/13/17 08:59 08/16/17 08:57 100 MG Lamotrigine (Lamictal Tab) 200 mg BID PO 08/14/17 09:00 09/13/17 08:59 08/16/17 08:57 200 MG Levetiracetam (Keppra Tab) 500 mg BID PO 08/14/17 09:00 09/13/17 08:59 08/16/17 08:57 500 MG Lorazepam (Ativan Tab) 0.5 mg BID PO 08/14/17 09:00 09/13/17 08:59 08/16/17 08:56 0.5 MG Magnesium Oxide (Mag-Ox Tab) 400 mg BID PO 08/14/17 09:00 09/13/17 08:59 08/16/17 08:57 400 MG Metoprolol Succinate (Toprol Xl Tab) 25 mg DAILY PO 08/14/17 09:00 09/13/17 08:59 08/16/17 08:58 25 MG Pantoprazole Sodium (Protonix Tab) 40 mg BID PO 08/14/17 09:00 09/13/17 08:59 08/16/17 08:57 40 MG Potassium Chloride (Klor-Con Tab) 20 meq QAM PO 08/14/17 09:00 09/13/17 08:59 08/16/17 08:57 20 MEQ Topiramate (Topamax Tab) 100 mg BID PO 08/14/17 09:00 09/13/17 08:59 08/16/17 08:57 100 MG Apixaban (Eliquis Tab) 5 mg BID PO 08/14/17 09:00 09/13/17 08:59 08/16/17 08:57 5 MG Albuterol Sulfate (Ventolin 0.083% 2.5MG/3ML Neb) 2.5 mg Q4H PRN INH 08/14/17 00:45 09/13/17 00:44 Acetaminophen (Tylenol Tab) 650 mg Q4H PRN PO 08/14/17 01:15 09/13/17 01:14 08/16/17 03:45 650 MG Al Hydrox/Mg Hydrox/Simethicone (Maalox Max Susp) 15 ml Q4H PRN PO 08/14/17 01:15 09/13/17 01:14 Magnesium Hydroxide (Milk Of Magnesia Susp) 30 ml Q12H PRN PO 08/14/17 01:15 09/13/17 01:14 Ondansetron HCl (Zofran Inj) 4 mg Q6H PRN IV 08/14/17 01:15 09/13/17 01:14 08/14/17 18:28 4 MG Nitroglycerin (Nitrostat Tab) 0.4 mg UD PRN SL 08/14/17 01:15 09/13/17 01:14 Morphine Sulfate (MoRPHine SULFATE INJ) 2 mg Q30M PRN IV 08/14/17 01:15 08/28/17 01:14 Polyethylene (Miralax Powder Packet) 17 gm DAILY PRN PO 08/14/17 01:15 09/13/17 01:14 Lorazepam (Ativan Inj) 2 mg Q4H PRN IV 08/14/17 01:45 09/13/17 01:44 Trimethoprim/ Sulfamethoxazole (Septra Ds 800/ 160MG Tab) 1 tab QDB PO 08/16/17 11:30 09/15/17 07:29 08/16/17 12:13 1 TAB (Dawna Beach PA-C) Objective Vital Signs Date Time Temp Pulse Resp B/P (MAP) Pulse Ox O2 Delivery O2 Flow Rate FiO2 08/16/17 11:10 36.9 84 20 104/58 (73) 94 Room Air 08/16/17 08:00 Room Air 08/16/17 07:34 37.3 92 18 146/85 (105) 94 Room Air 08/16/17 04:00 Room Air 08/16/17 03:26 38.3 97 20 159/80 (106) 100 Room Air 08/15/17 23:59 Room Air 08/15/17 23:56 37.3 100 22 141/72 (95) 96 Room Air 08/15/17 20:00 96 Room Air 08/15/17 20:00 36.4 76 17 124/72 (89) 96 Room Air 08/15/17 16:00 97 Room Air 08/15/17 15:49 36.8 80 16 119/78 (92) 97 Room Air (Dawna Beach PA-C) Physical Exam General Appearance: no apparent distress, + obese Eyes: PERRL ENT: hearing grossly normal Neck: supple Respiratory/Chest: lungs clear, no respiratory distress, no accessory muscle use Cardiovascular: + irregularly irregular (rate controlled ) Abdomen: normal bowel sounds, non tender, soft Extremities: no pedal edema, no calf tenderness Neurologic/Psychiatric: alert, normal mood/affect, oriented x 3 Skin: normal color, warm/dry, no rash (Dawna Beach, JOSE-C) Laboratory Results Last 24 Hours Test 08/16/17 06:25 08/16/17 08:06 08/16/17 08:12 Sodium Level 142 mmol/L Potassium Level 3.5 mmol/L Chloride Level 113 mmol/L Carbon Dioxide Level 19 mmol/L Anion Gap 10.0 mmol/L Blood Urea Nitrogen 8 mg/dl Creatinine 1.00 mg/dl Est Creatinine Clear Calc Drug Dose 70.5 ml/min Estimated GFR () 67.0 Estimated GFR (Non- 57.8 BUN/Creatinine Ratio 7.7 Random Glucose 124 mg/dl Calcium Level 9.0 mg/dl Urine Color YELLOW Urine Appearance CLEAR Urine pH >= 9.0 Urine Specific [place] 1.008 Urine Protein NEG Urine Glucose (UA) NEG Urine Ketones NEG Urine Occult Blood NEG Urine Nitrite NEG Urine Bilirubin NEG Urine Urobilinogen NEG Urine Leukocyte Esterase NEG White Blood Count 10.68 K/uL Red Blood Count 4.21 M/uL Hemoglobin 12.1 g/dL Hematocrit 36.9 % Mean Corpuscular Volume 87.6 fL Mean Corpuscular Hemoglobin 28.7 pg Mean Corpuscular Hemoglobin Concent 32.8 g/dl RDW Standard Deviation 46.9 fL RDW Coefficient of Variation 14.6 % Platelet Count 185 K/uL Mean Platelet Volume 11.1 fL (Dawna Beach, PADelphineC) Assessment and Plan 67 y/o F, with PMHx of seizure disorder, asthma, atrial fibrillation. Pt was brought in by EMS after she had activated her life alert system. She was found on the floor of her home yelling - possibly in pain - and appeared disoriented. Altered mental status, ?secondary to seizure disorder vs infectious process vs medication non-compliance: - Admitted to tele for cardiac monitoring- no acute events- transfer to med/ surg - Cardiac enzymes- negative - Admitted on IV Rocephin- no s/s of infection, antibiotic discontinued - BCx- NGTD, UA negative - CXR- negative for infectious process - Neurology consulted, appreciate recommendations -- EEG unremarkable for seizure activity -- Head CT, brain MRI, and bilateral carotid u/s- unremarkable for acute findings Hypokalemia- RESOLVED: Treated w/ IV K supplement and Lasix held, continue KCL PO supplement Hypothermia, uncertain etiology- RESOLVED: Treated w/ Michaela Church a.fib: Eliquis 5 mg BID, Metoprolol 25 mg daily, Mag-Ox 400 mg BID, and KCL 20 mEq daily Chronic anemia, baseline hgb 11.0- STABLE: Ferrous Sulfate 325 mg BID Asthma: Continue home inhalers Anxiety: Ativan 0.5 mg BID Chronic lower extremity edema: Lasix 20 mg PO daily Seizure disorder: Continue Lamictal 300 mg BID, Levetiracetam 500 mg BID, and Topamax 100 mg BID- toxicology levels pending h/o recurrent cellulitis on chronic suppression therapy- follows w/ Dr. Gardner: Continue Bactrim GERD: Protonix 40 mg daily DVT Prophylaxis: Eliquis BID Code Status: LEVEL I, FULL Dispo: From home- PT recommended rehab- drug abuse social worker (Dawna Beach, JEISONC) I examined patient and agree with this note. However, patient refuses rehab and wants to go home. No further inpatient workup is required at this time. Risks of going home were discussed with patient and she understands risks and still decided to be discharge. Please refer to discharge summary. (Antonio Rawls M.D.)
[2017-08-16] MEDS ORDERED: ALBUTEROL HFA 8 GM INHALER INH PRN (13:45)
[2017-08-16] MEDS ORDERED: FERROUS SULFATE 325 MG TAB PO SCH (16:45)
[2017-08-16] MEDS ORDERED: FURO20TA PO (17:23)
[2017-08-16] MEDS ORDERED: LORA-741 PO (17:23)
[2017-08-16] MEDS ORDERED: VNTHFA/IN PO (17:23)
[2017-08-16] MEDS ORDERED: APIX1TAB3 PO (17:23)
[2017-08-16] MEDS ORDERED: SULF800T23 PO (17:23)
[2017-08-16] MEDS ORDERED: TPRSR/25 PO (17:23)
[2017-08-16] MEDS ORDERED: PANT40TA PO (17:23)
[2017-08-16] MEDS ORDERED: FLUT0.15 NAE (17:23)
[2017-08-16] MEDS ORDERED: METO5TAB2 PO (17:23)
[2017-08-16] MEDS ORDERED: TPM100 PO (17:23)
[2017-08-16] MEDS ORDERED: FERR1TAB13 PO (17:23)
[2017-08-16] MEDS ORDERED: LEVE500T PO (17:23)
[2017-08-16] MEDS ORDERED: DOCU-94 PO (17:23)
[2017-08-16] MEDS ORDERED: LAMO100T16 PO (17:23)
[2017-08-16] MEDS ORDERED: POTA20TA13 PO (17:23)
[2017-08-16] MEDS ORDERED: IPRA0.03 NAE (17:23)
[2017-08-16] MEDS ORDERED: LAMO200T38 PO (17:23)
--- NOTE | 2017-08-16 17:27 | Discharge Instructions ---
Discharge Instructions Date of Service Aug 16, 2017. Admission Reason for Admission: Altered Mental Status, Hypothermia Discharge Discharge Diagnosis / Problem: Altered mental status likely secondary to metabolic factors Discharge Goals Goal(s): Decrease discomfort, Improve function Activity Recommendations Activity Limitations: resume your previous activity Recommended Rehab but patient refused. . Instructions / Follow-Up Instructions / Follow-Up F/U with PCP in 1 week. F/UW with Neurologist in 1-2 weeks Current Hospital Diet Patient's current hospital diet: Regular Diet Discharge Diet Recommended Diet: Regular Diet Pending Studies Studies pending at discharge: no Medical Emergencies . Who to Call and When: Medical Emergencies: If at any time you feel your situation is an emergency, please call 911 immediately. . Non-Emergent Contact Non-Emergency issues call your: Primary Care Provider Call Non-Emergent contact if: you have any medication questions . . "Provider Documentation" section prepared by Antonio Rawls. . VTE Core Measure Inpt VTE Proph given/why not?: Other Anticoagulation
--- NOTE | 2017-08-16 21:17 | Discharge Summary ---
Discharge Summary Date of Service Aug 16, 2017. Discharge Summary Admission Date: Aug 14, 2017 at 01:05 Discharge Date: Aug 16, 2017 Immunizations: Have You Had Influenza Vaccine: Yes Influenza Vaccine Date: Sep 10, 2011 History of Tetanus Vaccine?: Yes Tetanus Immunization Date: Mar 07, 1997 History of Pneumococcal: Yes Pneumococcal Date: Sep 09, 2011 History of Hepatitis B Vaccine: No Hepatitis Immunization Date: Jul 01, 2006 Hospital Course I examined patient and agree with this note. However, patient refuses rehab and wants to go home. No further inpatient workup is required at this time. Risks of going home were discussed with patient and she understands risks and still decided to be discharge. Please refer to discharge summary. This includes examination of the patient, discharge planning, medication reconciliation, and communication with other providers. Discharge Instructions Please refer to the electronic Patient Visit Report (Discharge Instructions) for additional information.
[2017-08-17] MEDS ORDERED: FUROSEMIDE 20 MG TAB PO SCH (09:00)
[2017-08-18 08:32] LABS: TOPIRAMATE (TOPAMAX)**30965 7.3 mcg/mL
== END 2017-08-16 18:19 | disposition home or self-care (01) | DRG 948 ==
LOC: EDBD 23:23 → C.EDB 23:24 → C.2T 08-14 01:05 → ENRESERV 08-14 01:34 → C.MS2W 08-16 15:14
PROVIDERS: ADMIT Internal Medicine; ATTEND Internal Medicine Sports Medicine
DX: R41.82 Altered mental status, unspecified (principal); E87.2 Acidosis; G40.909 Epilepsy, unspecified, not intractable, without status epilepticus; R68.0 Hypothermia, not associated with low environmental temperature; I48.0 Paroxysmal atrial fibrillation; K21.9 Gastro-esophageal reflux disease without esophagitis; J45.909 Unspecified asthma, uncomplicated; F41.9 Anxiety disorder, unspecified; E66.01 Morbid (severe) obesity due to excess calories; R60.9 Edema, unspecified; E87.6 Hypokalemia; D64.9 Anemia, unspecified; Z79.01 Long term (current) use of anticoagulants; Z91.14 Patient's other noncompliance with medication regimen; Z79.2 Long term (current) use of antibiotics; Z96.652 Presence of left artificial knee joint; Z84.1 Family history of disorders of kidney and ureter; Z82.49 Family history of ischemic heart disease and other diseases of the circulatory system; Z82.0 Family history of epilepsy and other diseases of the nervous system

== ENCOUNTER 2017-08-30 14:31 | Emergency (ER) | payer OTHER ==
[~2017-08-30 14:31] MED LIST changes: -ASCO500T16 PO; -CEPH500C PO; +ESTCR PV; -HYDR-4079 PO; +IPRA0.03 NAE; +LAMO200T38 PO; -MULT-1042 PO; +MULT-506 PO; +OXYC1TAB3 PO; -SENN-65 PO; +TPRSR/25 PO; +VNTHFA/IN PO; +[UNRECOGNIZED DRUG - CODE] PO
[2017-08-30 14:35] VITALS: TEMP 36.7
--- NOTE | 2017-08-30 15:41 | DIAGNOSTIC IMAGING REPORT ---
R SHOULDER MIN 2 VIEWS ROUTINE CLINICAL HISTORY: 67 years-old Female presenting with r shoulder pain . TECHNIQUE: Internal rotation, external rotation, and Grashey views of the right shoulder were obtained. COMPARISON: 07/01/2008. FINDINGS: Osteopenia suggested. Glenohumeral and acromioclavicular joints congruent. No acute fracture or malalignment. Mild osteophytosis noted at the humeral head and acromioclavicular joint. No regional soft tissue abnormality. Visualized portion of the right lung clear. IMPRESSION: No acute osseous injury of the right shoulder. Mild degenerative changes of the acromioclavicular and glenohumeral joints. Electronically signed by: Shree Ritter M.D. 08/30/2017 3:39 PM Dictated Date/Time: 08/30/2017 3:38 PM
[2017-08-30 16:22] VITALS: BP 117/71; PULSE 78; O2SAT 98
--- NOTE | 2017-08-30 22:03 | EMERGENCY ROOM VISIT NOTE ---
History Report prepared by Chiara: Teto Cabello Under the Supervision of: Dr. Cristiano Walter D.O. First contact with patient: 14:50 Chief Complaint: SHOULDER PAIN Stated Complaint: RIGHT SHOULDER PAIN History of Present Illness The patient is a 67 year old female who presents to the Emergency Room with complaints of right shoulder pain that began 2 weeks ago. She rates her pain a 6 /10 in severity. The patient was evaluated as an inpatient at this time, on the 13 of August, for altered mental status. She was found on the ground. Staff believes that she had a seizure. She does not remember anything about her fall at that time. She was discharged home on the . Today, she is having exacerbated pain with movement. She denies any headache, neck pain, chest pain, shortness of breath, abdominal pain, nausea, vomiting, weakness, numbness, or back pain. Source of History: patient Onset: 2 weeks ago Position: shoulder (right) Symptom Intensity: moderate Quality: ache Timing: constant Modifying Factors (Worsening): movement Associated Symptoms: No headache, No neck pain, No chest pain, No nausea, No vomiting, No abdominal pain, No back pain, No weakness, No numbness Review of Systems See HPI for pertinent positives & negatives. A total of 10 systems reviewed and were otherwise negative. 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 (16) Fall (17) Fracture of rib with routine healing (18) Gastroesophageal reflux disease (19) Gout (20) Hernia (21) Hip pain (22) History of recent fall (23) Hyperlipidemia (24) Migraine (25) Neck pain (26) Rectal bleeding (27) renal insufficiency (28) Rib fractures (29) Seizure (30) Spinal stenosis (31) Sprain of knee (32) Status post fall (33) Unexplained night sweats Surgical Problems: (1) back surgery (2) Cholecystectomy (3) History of appendectomy (4) History of arthroplasty of left knee (5) Hysterectomy (6) neck surgery (7) Status post total left knee replacement Family History Cancer FHx: neurologic disorder Heart disease Hypertension Kidney disease Other kidney diseases Seizures Social History Smoking Status: Never Smoker Alcohol Use: none Drug Use: none Marital Status: single Housing Status: lives alone Occupation Status: retired Current/Historical Medications Scheduled Apixaban (Eliquis), 5 MG PO BID Ascorbic Acid (Ra Vitamin C), 500 MG PO QAM Docusate Sodium (Colace), 100 MG PO BID Estradiol Vaginal (Estrace), 0.25 APPL PV UD Ferrous Sulfate (Kp Ferrous Sulfate), 325 TAB PO BIDM Fluticasone Propionate (Nasal) (Flonase Allergy Relief), 2 SPRAY MORIS QAM Furosemide (Lasix), 20 MG PO QAM Ipratropium [place] (Nasal) (Ipratropium [place]), 2 SPRAYS MORIS TID Lamotrigine (Lamictal), 100 MG PO BID Lamotrigine (Lamictal), 200 MG PO BID Levetiractam (Levetiracetam), 500 MG PO BID Lorazepam (Ativan), 0.5 MG PO BID Magnesium Oxide (Mag-Ox), 400 MG PO BID Metoclopramide Hcl (Metoclopramide Hcl), 5 MG PO BID Metoprolol Succinate (Metoprolol Succinate ER), 25 MG PO DAILY Multivitamin (Multivitamin), 1 TAB PO DAILY Pantoprazole Sodium (Protonix), 40 MG PO BID Potassium Chloride Microencaps (Potassium Chloride Er), 20 MEQ PO QAM Sulfa/Trimethoprim (Bactrim Ds 800MG/160MG), 1 TAB PO DAILY Topiramate (Topiramate), 100 MG PO BID Scheduled PRN Albuterol Hfa (Ventolin Hfa), 2 PUFFS PO QID PRN for SOB/Wheezing Oxycodone Ir (Roxicodone Ir), 1-2 TAB PO Q4H PRN for Pain Allergies Coded Allergies: Adhesives (Verified Adverse Reaction, Unknown, ITCHY, 07/01/17) Physical Exam Vital Signs Date Time Temp Pulse Resp B/P (MAP) Pulse Ox O2 Delivery O2 Flow Rate FiO2 08/30/17 16:22 78 16 117/71 98 08/30/17 15:36 82 16 141/101 97 Room Air 08/30/17 14:35 36.7 91 18 172/98 98 Room Air Physical Exam GENERAL: Sitting up in bed, alert, well appearing, well nourished, no distress, non-toxic EYE EXAM: normal conjunctiva OROPHARYNX: no exudate, no erythema, lips, buccal mucosa, and tongue normal and mucous membranes are moist NECK: supple, no nuchal rigidity, no adenopathy, non-tender LUNGS: Clear to auscultation. Normal chest wall mechanics HEART: Positive systolic ejection murmur, S1 normal and S2 normal ABDOMEN: abdomen soft, non-tender, normo-active bowel sounds, no masses, no rebound or guarding. BACK: Back is symmetrical on inspection and there is no deformity, no midline tenderness, no CVA tenderness. SKIN: no rashes and no bruising UPPER EXTREMITIES: Right shoulder pain on the posterior humeral head. Worsens with extension and abduction greater than 90 degrees. Flexion and extension of the shoulder, elbow, wrist, grasp and abduction are all 5/5. Gross sensation intact. Radial pulses 2/4. LOWER EXTREMITIES: Faint pitting edema. Calves equal bilaterally. NEURO EXAM: Normal sensorium, cranial nerves II-XII grossly intact, normal speech, no gross weakness of arms, no gross weakness of legs. Medical Decision & Procedures ER Provider Diagnostic Interpretation: Radiology results as stated below per my review and the radiologist's interpretation: R SHOULDER MIN 2 VIEWS ROUTINE CLINICAL HISTORY: 67 years-old Female presenting with r shoulder pain . TECHNIQUE: Internal rotation, external rotation, and Grashey views of the right shoulder were obtained. COMPARISON: 07/01/2008. FINDINGS: Osteopenia suggested. Glenohumeral and acromioclavicular joints congruent. No acute fracture or malalignment. Mild osteophytosis noted at the humeral head and acromioclavicular joint. No regional soft tissue abnormality. Visualized portion of the right lung clear. IMPRESSION: No acute osseous injury of the right shoulder. Mild degenerative changes of the acromioclavicular and glenohumeral joints. Electronically signed by: Shree Ritter M.D. 08/30/2017 3:39 PM Dictated Date/Time: 08/30/2017 3:38 PM ED Course ED COURSE: Vital signs were reviewed and showed hypertension. The patients medical record was reviewed The above diagnostic studies were performed and reviewed. ED treatments and interventions as stated above. 1450: The patient was evaluated in room A10. A complete history and physical examination was performed. 1600: Upon reevaluation, the patient is resting. I discussed my findings with the patient and she understands and agrees with the treatment plan. Based on the patients age, coexisting illnesses, exam and lab findings the decision to treat as an outpatient was made. The patient remained stable while under my care. The patient appeared well at the time of discharge. Medical Decision Differential diagnosis: Etiologies such as fracture, dislocation, neurovascular compromise, compartment syndrome, soft tissue injury, as well as others were entertained. Patient is a 67-year-old female who presents to ER for right shoulder pain. She notes it has been present for the past 2 weeks since she was last admitted here. At that time she reportedly had a seizure and was found down on the floor was a minute for altered mental status. On exam she has tenderness in posterior aspect of her right humerus. Neurologically intact. Denies any chest pain or shortness of breath. No weakness in the arm. X-ray showed no acute fractures. Patient was updated at bedside. She was discharged with right shoulder pain likely secondary to trauma. Discussed with Pt concerning signs and symptoms to watch out for. Pt was instructed to follow up with their PCP and discussed with the patient their option to return to the ED at anytime for persistent or worsening symptoms. The appropriate anticipatory guidance and out-patient management, including indications for return to the emergency department, were explained at length to the patient and understood. Medication Reconcilliation Current Medication List: was personally reviewed by me Blood Pressure Screening Patient's blood pressure: Elevated blood pressure Blood pressure disposition: Elevated BP felt to be situational Impression Primary Impression: Acute pain of right shoulder Scribe Attestation The scribe's documentation has been prepared under my direction and personally reviewed by me in its entirety. I confirm that the note above accurately reflects all work, treatment, procedures, and medical decision making performed by me. Departure Information Dispostion Home / Self-Care Referrals Marcelo Escoto M.D. (PCP) Forms HOME CARE DOCUMENTATION FORM, IMPORTANT VISIT INFORMATION Patient Instructions ED Shoulder Pain Basia SANCHE[facility] Additional Instructions Please follow up with your primary care doctor or if you are a student, [facility] with in the next 24 hours. Any worsening of your symptoms, please return to the ED immediately. This includes any fevers greater than 100.4, worsening pain, weakness or numbness, chest pain, shortness breath, persistent nausea, vomiting, unable to eat or drink, or any other concerning signs or symptoms from your standpoint. Please take Tylenol or Motrin as needed for pain. You were found to have a blood pressure greater than 120 systolic over 90 diastolic. Due to the new Medicare guidelines, we are now recommending that you follow up with your primary care doctor in regards to this elevated blood pressure.
== END 2017-08-30 16:24 | disposition home or self-care (01) ==
LOC: C.EDB 14:33 → C.EDA 16:24
DX: M25.511 Pain in right shoulder (principal); J45.909 Unspecified asthma, uncomplicated; I10 Essential (primary) hypertension; K21.9 Gastro-esophageal reflux disease without esophagitis; M10.9 Gout, unspecified; E78.5 Hyperlipidemia, unspecified; Z90.49 Acquired absence of other specified parts of digestive tract; Z96.652 Presence of left artificial knee joint; Z90.710 Acquired absence of both cervix and uterus; Z80.9 Family history of malignant neoplasm, unspecified; Z82.49 Family history of ischemic heart disease and other diseases of the circulatory system; Z84.1 Family history of disorders of kidney and ureter; Z82.0 Family history of epilepsy and other diseases of the nervous system; Z79.01 Long term (current) use of anticoagulants; Z79.899 Other long term (current) drug therapy

== ENCOUNTER 2017-10-08 16:08 | Emergency (ER) | payer OTHER ==
[~2017-10-08] VITALS: Ht 170.2 cm; Wt 110.2 kg
[2017-10-08 16:13] VITALS: TEMP 36.8; Ht 170.2 cm; Wt 110.2 kg
--- NOTE | 2017-10-08 16:38 | EMERGENCY ROOM VISIT NOTE ---
History Report prepared by Chiara: Teto Cabello Under the Supervision of: Dr. Xu Garcia M.D. First contact with patient: 16:16 Chief Complaint: CHEST PAIN Stated Complaint: CHEST PAIN AND BACK PAIN History of Present Illness The patient is a 67 year old female who presents to the Emergency Room with complaints of intermittent right sided chest pain that began 2 months ago. She rates her pain a 7/10 in severity when it is present. She has been having right- sided upper back pain for several months. In the past, she has received multiple workups for these symptoms that have been negative. However, she has not seen an orthopedic physician for her pain. For the past two months, her back pain has been radiating upward and into the right side of her chest intermittently. She has been using a heating pad and Aleve to try to alleviate her pain. She denies any recent falls or injury. She also denies any shortness of breath. She denies any history of myocardial infarction. She has a history of atrial fibrillation and is on Eliquis. She has been keeping up with her medication dosages. Source of History: patient Onset: 2 months ago Position: chest (right) Symptom Intensity: 7/10 Quality: sharp Timing: intermittent Associated Symptoms: + back pain, No SOB Review of Systems See HPI for pertinent positives & negatives. A total of 10 systems reviewed and were otherwise negative. 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 (16) Fall (17) Fracture of rib with routine healing (18) Gastroesophageal reflux disease (19) Gout (20) Hernia (21) Hip pain (22) History of recent fall (23) Hyperlipidemia (24) Migraine (25) Neck pain (26) Rectal bleeding (27) renal insufficiency (28) Rib fractures (29) Seizure (30) Spinal stenosis (31) Sprain of knee (32) Status post fall (33) Unexplained night sweats Surgical Problems: (1) back surgery (2) Cholecystectomy (3) History of appendectomy (4) History of arthroplasty of left knee (5) Hysterectomy (6) neck surgery (7) Status post total left knee replacement Family History Cancer FHx: neurologic disorder Heart disease Hypertension Kidney disease Other kidney diseases Seizures Social History Smoking Status: Never Smoker Smokeless Tobacco Use: No Alcohol Use: none Drug Use: none Marital Status: single Housing Status: lives alone Occupation Status: retired Current/Historical Medications Scheduled Apixaban (Eliquis), 5 MG PO BID Ascorbic Acid (Ra Vitamin C), 500 MG PO QAM Docusate Sodium (Colace), 100 MG PO BID Estradiol Vaginal (Estrace), 0.25 APPL PV UD Ferrous Sulfate (Kp Ferrous Sulfate), 325 TAB PO BIDM Fluticasone Propionate (Nasal) (Flonase Allergy Relief), 2 SPRAY MORIS QAM Furosemide (Lasix), 20 MG PO QAM Ipratropium [place] (Nasal) (Ipratropium [place]), 2 SPRAYS MORIS TID Lamotrigine (Lamictal), 100 MG PO BID Lamotrigine (Lamictal), 200 MG PO BID Levetiractam (Levetiracetam), 500 MG PO BID Lorazepam (Ativan), 0.5 MG PO BID Magnesium Oxide (Mag-Ox), 400 MG PO BID Metoclopramide Hcl (Metoclopramide Hcl), 5 MG PO BID Metoprolol Succinate (Metoprolol Succinate ER), 25 MG PO DAILY Multivitamin (Multivitamin), 1 TAB PO DAILY Pantoprazole Sodium (Protonix), 40 MG PO BID Potassium Chloride Microencaps (Potassium Chloride Er), 20 MEQ PO QAM Sulfa/Trimethoprim (Bactrim Ds 800MG/160MG), 1 TAB PO DAILY Topiramate (Topiramate), 100 MG PO BID Scheduled PRN Albuterol Hfa (Ventolin Hfa), 2 PUFFS PO QID PRN for SOB/Wheezing Oxycodone Ir (Roxicodone Ir), 1-2 TAB PO Q4H PRN for Pain Allergies Coded Allergies: Adhesives (Verified Adverse Reaction, Unknown, ITCHY, 10/08/17) Physical Exam Vital Signs Date Time Temp Pulse Resp B/P (MAP) Pulse Ox O2 Delivery O2 Flow Rate FiO2 10/08/17 18:56 65 18 163/82 100 10/08/17 17:50 57 141/87 10/08/17 17:21 61 10/08/17 16:13 36.8 75 18 173/108 98 Room Air Physical Exam GENERAL: Patient is in no acute distress. HEENT: No acute trauma, normocephalic atraumatic, mucous membranes moist, no nasal congestion, no scleral icterus. NECK: No stridor, no adenopathy, no meningismus, trachea is midline. LUNGS: Clear to auscultation bilaterally, no wheeze, no rhonchi, breath sounds equal. HEART: There is a 3/6 systolic murmur with an irregular rhythm and a normal rate. CHEST: Tenderness along the right anterior chest wall. ABDOMEN: Soft, nontender, bowel sounds positive, no hernias, no peritonitis. EXTREMITIES: Moderate bilateral pedal edema. Movement of the right shoulder causes no pain, however there is pain to palpation to the right anterior and posterior shoulder. No rash. NEUROLOGIC: Oriented x 3, no acute motor or sensory deficits, no focal weakness. SKIN: No rash, no jaundice, no diaphoresis. Medical Decision & Procedures ER Provider Diagnostic Interpretation: Radiology results as stated below per my review and radiologist interpretation: CHEST ONE VIEW PORTABLE CLINICAL HISTORY: right chest pain dyspnea COMPARISON STUDY: 08/13/2017 FINDINGS: Right lung is considered clear. Mild chronic interstitial change left lung base. No well-defined focal infiltrate. Mild stable cardiomegaly. IMPRESSION: Chronic interstitial change left base. Mild stable cardiomegaly. The above report was generated using voice recognition software. It may contain grammatical, syntax or spelling errors. Electronically signed by: Liu Collins M.D. 10/08/2017 4:55 PM Dictated Date/Time: 10/08/2017 4:54 PM Laboratory Results 10/08/17 17:22 10/08/17 17:22 Test 10/08/17 17:22 Red Blood Count 4.48 M/uL (4.2-5.4) Mean Corpuscular Volume 87.1 fL (80-100) Mean Corpuscular Hemoglobin 28.6 pg (25-34) Mean Corpuscular Hemoglobin Concent 32.8 g/dl (32-36) RDW Standard Deviation 52.7 fL (36.4-46.3) RDW Coefficient of Variation 16.6 % (11.5-14.5) Mean Platelet Volume 11.0 fL (7.4-10.4) Anion Gap 11.0 mmol/L (3-11) Est Creatinine Clear Calc Drug Dose 51.4 ml/min Estimated GFR () 47.1 Estimated GFR (Non- 40.6 BUN/Creatinine Ratio 14.1 (10-20) Calcium Level 9.2 mg/dl (8.5-10.1) Troponin I < 0.015 ng/ml (0-0.045) Laboratory results reviewed by me. ECG Indication: chest pain Rate (beats per minute): 69 Rhythm: atrial fibrillation Findings: nonspecific-ST abn, no acute ischemic change, no ectopy Comparison ECG Date: 16 Aug 2017 Change: no significant change ED Course 1616: The patient was evaluated in room C8. A complete history and physical exam was performed. Medical Decision Differential diagnosis includes but is not limited to musculoskeletal pain, calcific tendonitis, arthritis, pneumonia, pneumothorax, pulmonary embolism, and myocardial infarction. The patient presents with right shoulder and right sided chest pain. This has been ongoing, it sounds like for months. A cardiac workup was performed. There is no leukocytosis or concerning anemia. No significant electrolyte abnormality or kidney failure. EKG shows A. fib which is baseline for the patient. There is no acute ischemic change on EKG. Cardiac enzyme testing 1 is not consistent with acute cardiac injury. Chest film does not show mediastinal widening, pneumonia or pneumothorax. I did review the patient's workup from her last visit, the right shoulder pain was felt musculoskeletal. There was some arthritis seen on x-ray. The patient's pain is reproducible, I suspect the pain is musculoskeletal. She is being referred to orthopedics, she can return if worsening. Medication Reconcilliation Current Medication List: was personally reviewed by me Blood Pressure Screening Patient's blood pressure: Elevated blood pressure Blood pressure disposition: Elevated BP felt to be situational Impression Primary Impression: Right shoulder pain Additional Impression: Right-sided chest pain Scribe Attestation The scribe's documentation has been prepared under my direction and personally reviewed by me in its entirety. I confirm that the note above accurately reflects all work, treatment, procedures, and medical decision making performed by me. Departure Information Dispostion Home / Self-Care Referrals Marcelo Escoto M.D. (PCP) Axel Pate M.D. Forms Call Back Authorization, HOME CARE DOCUMENTATION FORM, IMPORTANT VISIT INFORMATION Patient Instructions [facility] Additional Instructions tylenol for pain heat to the area may help see orthopedics for the shoulder--call for an appt see danish salcedo for a recheck this week return if worsening heart testing today was all ok Problem Qualifiers Primary Impression: Right shoulder pain Chronicity: chronic Qualified Codes: M25.511 - Pain in right shoulder; G89.29 - Other chronic pain
--- NOTE | 2017-10-08 16:56 | DIAGNOSTIC IMAGING REPORT ---
CHEST ONE VIEW PORTABLE CLINICAL HISTORY: right chest pain dyspnea COMPARISON STUDY: 08/13/2017 FINDINGS: Right lung is considered clear. Mild chronic interstitial change left lung base. No well-defined focal infiltrate. Mild stable cardiomegaly. IMPRESSION: Chronic interstitial change left base. Mild stable cardiomegaly. The above report was generated using voice recognition software. It may contain grammatical, syntax or spelling errors. Electronically signed by: Liu Collins M.D. 10/08/2017 4:55 PM Dictated Date/Time: 10/08/2017 4:54 PM
[2017-10-08 17:37] LABS: MEAN CELL VOLUME 87.1 fL (80-100); MEAN CORPUSCULAR HEMOGLOBIN 28.6 pg (25-34); MEAN CORPUSCULAR HGB CONC 32.8 g/dl (32-36); PLATELET COUNT 152 K/uL (130-400); RED BLOOD COUNT 4.48 M/uL (4.2-5.4); WHITE BLOOD COUNT 5.71 K/uL (4.8-10.8)
[2017-10-08 17:56] LABS: BLOOD UREA NITROGEN 19 mg/dl (7-18); BUN/CREATININE RATIO 14.1 (10-20); CALCIUM 9.2 mg/dl (8.5-10.1); CARBON DIOXIDE 22 mmol/L (21-32); CHLORIDE 109 mmol/L (98-107); CREATININE 1.34 mg/dl (0.60-1.20); GLUCOSE 85 mg/dl (70-99); POTASSIUM 3.7 mmol/L (3.5-5.1); SODIUM 142 mmol/L (136-145)
[2017-10-08 18:56] VITALS: BP 163/82; PULSE 65; O2SAT 100
== END 2017-10-08 18:57 | disposition home or self-care (01) ==
LOC: C.EDB 16:13 → C.EDC 18:57
DX: R07.9 Chest pain, unspecified (principal); M25.511 Pain in right shoulder; G89.29 Other chronic pain; I48.91 Unspecified atrial fibrillation; Z79.01 Long term (current) use of anticoagulants; J45.909 Unspecified asthma, uncomplicated; I10 Essential (primary) hypertension; K21.9 Gastro-esophageal reflux disease without esophagitis; M10.9 Gout, unspecified; E78.5 Hyperlipidemia, unspecified; Z90.49 Acquired absence of other specified parts of digestive tract; Z96.652 Presence of left artificial knee joint; Z80.9 Family history of malignant neoplasm, unspecified; Z82.49 Family history of ischemic heart disease and other diseases of the circulatory system; Z84.1 Family history of disorders of kidney and ureter; Z82.0 Family history of epilepsy and other diseases of the nervous system; Z79.899 Other long term (current) drug therapy

== ENCOUNTER 2017-10-22 17:12 | Emergency (ER) | payer OTHER ==
[~2017-10-22] VITALS: Ht 170.2 cm; Wt 110.3 kg
[2017-10-22 17:26] VITALS: TEMP 36.5; O2SAT 99; Ht 170.2 cm; Wt 110.3 kg
--- NOTE | 2017-10-22 17:57 | DIAGNOSTIC IMAGING REPORT ---
SINGLE VIEW CHEST CLINICAL HISTORY: Fever. Sepsis. FINDINGS: An AP, portable, upright chest radiograph is compared to study dated 10/08/2017. The examination is degraded by portable technique and patient rotation. The heart is enlarged. The pulmonary vasculature is noncongested. No airspace consolidation, large pleural effusion, or pneumothorax is seen. The skeletal structures are osteopenic. Degenerative change is noted throughout the thoracic spine. Fusion hardware is seen in the lower cervical spine. Surgical clips are noted in the upper abdomen. IMPRESSION: Cardiomegaly with no acute cardiopulmonary abnormality. Electronically signed by: Xu Tyler M.D. 10/22/2017 5:55 PM Dictated Date/Time: 10/22/2017 5:54 PM
[2017-10-22] MEDS ORDERED: MoRPHine SULFATE 4 MG/ML 1 ML CARP\\VIAL IV STA (19:14)
[2017-10-22 19:27] LABS: ISTAT HEMOGLOBIN 11.9 g/dl (12.0-16.0); ISTAT IONIZED CALCIUM 1.26 mmol/l (1.12-1.32)
--- NOTE | 2017-10-22 19:27 | EMERGENCY ROOM VISIT NOTE ---
History Report prepared by Chiara: Ezio De Jesus Under the Supervision of: Saleem WhiteO. First contact with patient: 17:21 Stated Complaint: Chest pain History of Present Illness The patient is a 67 year old female who presents to the Emergency Room with complaints of worsening chest pain for the past two weeks which started while doing house work. The patient currently rates her discomfort as a 10/10 in severity. The patient states that heat makes that pain better, and the pain is worsened with movement. She states that she has an allergy to aspirin and nitro. Additionally, the patient states that she is having some shortness of breath and it hurts to breath. She denies any recent falls. The patient states that she is on Eliquis for her A Fib. She additionally has chronic edema in her legs. Source of History: patient Onset: two weeks ago Position: chest Symptom Intensity: 10/10 Timing: worsening Modifying Factors (Worsening): movement Modifying Factors (Relieving): heat Associated Symptoms: + SOB Review of Systems See HPI for pertinent positives & negatives. A total of 10 systems reviewed and were otherwise negative. 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 (16) Fall (17) Fracture of rib with routine healing (18) Gastroesophageal reflux disease (19) Gout (20) Hernia (21) Hip pain (22) History of recent fall (23) Hyperlipidemia (24) Migraine (25) Neck pain (26) Rectal bleeding (27) renal insufficiency (28) Rib fractures (29) Seizure (30) Spinal stenosis (31) Sprain of knee (32) Status post fall (33) Unexplained night sweats Surgical Problems: (1) back surgery (2) Cholecystectomy (3) History of appendectomy (4) History of arthroplasty of left knee (5) Hysterectomy (6) neck surgery (7) Status post total left knee replacement Family History Cancer FHx: neurologic disorder Heart disease Hypertension Kidney disease Other kidney diseases Seizures Social History Smoking Status: Never Smoker Alcohol Use: none Drug Use: none Marital Status: single Housing Status: lives alone Occupation Status: retired Current/Historical Medications Scheduled Apixaban (Eliquis), 5 MG PO BID Ascorbic Acid (Ra Vitamin C), 500 MG PO QAM Docusate Sodium (Colace), 100 MG PO BID Estradiol Vaginal (Estrace), 0.25 APPL PV UD Ferrous Sulfate (Kp Ferrous Sulfate), 325 TAB PO BIDM Fluticasone Propionate (Nasal) (Flonase Allergy Relief), 2 SPRAY MORIS QAM Furosemide (Lasix), 20 MG PO QAM Ipratropium [place] (Nasal) (Ipratropium [place]), 2 SPRAYS MORIS TID Lamotrigine (Lamictal), 100 MG PO BID Lamotrigine (Lamictal), 200 MG PO BID Levetiractam (Levetiracetam), 500 MG PO BID Lorazepam (Ativan), 0.5 MG PO BID Magnesium Oxide (Mag-Ox), 400 MG PO BID Metoclopramide Hcl (Metoclopramide Hcl), 5 MG PO BID Metoprolol Succinate (Metoprolol Succinate ER), 25 MG PO DAILY Multivitamin (Multivitamin), 1 TAB PO DAILY Pantoprazole Sodium (Protonix), 40 MG PO BID Potassium Chloride Microencaps (Potassium Chloride Er), 20 MEQ PO QAM Sulfa/Trimethoprim (Bactrim Ds 800MG/160MG), 1 TAB PO DAILY Topiramate (Topiramate), 100 MG PO BID Scheduled PRN Albuterol Hfa (Ventolin Hfa), 2 PUFFS PO QID PRN for SOB/Wheezing Oxycodone Ir (Roxicodone Ir), 1-2 TAB PO Q4H PRN for Pain Allergies Coded Allergies: Adhesives (Verified Adverse Reaction, Unknown, ITCHY, 10/08/17) Physical Exam Vital Signs Date Time Temp Pulse Resp B/P (MAP) Pulse Ox O2 Delivery O2 Flow Rate FiO2 10/22/17 19:40 63 20 176/98 98 Room Air 10/22/17 17:26 36.5 68 12 139/94 99 Room Air 10/22/17 17:26 66 10/22/17 17:26 99 Room Air 10/22/17 17:26 99 Room Air Physical Exam CONSTITUTIONAL/VITAL SIGNS: Reviewed / noted above. GENERAL: Non-toxic in appearance. INTEGUMENTARY: Warm, dry, and [place]. HEAD: Normocephalic. EYES: without scleral icterus or trauma. ENT/OROPHARYNX: clear and moist. LYMPHADENOPATHY/NECK: Is supple without lymphadenopathy or meningismus. RESPIRATORY: Lungs clear and equal. CARDIOVASCULAR: Regular rate and rhythm. GI/ABDOMEN: Soft and nontender. No organomegaly or pulsatile mass. No rebound or guarding. Normal bowel sounds. EXTREMITIES: Chronic lower extremity edema. Warm and well perfused. BACK: No CVA tenderness. NEUROLOGICAL: Intact without focal deficits. PSYCHIATRIC: normal affect. MUSCULOSKELETAL: Normally developed with good muscle tone. Medical Decision & Procedures ER Provider Diagnostic Interpretation: Radiology results as stated below per my review and radiologist interpretation: SINGLE VIEW CHEST CLINICAL HISTORY: Fever. Sepsis. FINDINGS: An AP, portable, upright chest radiograph is compared to study dated 10/08/2017. The examination is degraded by portable technique and patient rotation. The heart is enlarged. The pulmonary vasculature is noncongested. No airspace consolidation, large pleural effusion, or pneumothorax is seen. The skeletal structures are osteopenic. Degenerative change is noted throughout the thoracic spine. Fusion hardware is seen in the lower cervical spine. Surgical clips are noted in the upper abdomen. IMPRESSION: Cardiomegaly with no acute cardiopulmonary abnormality. Electronically signed by: Xu Tyler M.D. 10/22/2017 5:55 PM Dictated Date/Time: 10/22/2017 5:54 PM Laboratory Results 10/22/17 19:10 Red Blood Count 4.07, Mean Corpuscular Volume 88.5, Mean Corpuscular Hemoglobin 28.7, Mean Corpuscular Hemoglobin Concent 32.5, Mean Platelet Volume 10.9, Neutrophils (%) (Auto) 64.6, Lymphocytes (%) (Auto) 24.3, Monocytes (%) (Auto) 7.3, Eosinophils (%) (Auto) 2.9, Basophils (%) (Auto) 0.7, Neutrophils # (Auto) 3.97, Lymphocytes # (Auto) 1.49, Monocytes # (Auto) 0.45, Eosinophils # (Auto) 0.18, Basophils # (Auto) 0.04 10/22/17 19:10 Test 10/22/17 17:32 10/22/17 19:10 10/22/17 19:14 White Blood Count 6.14 K/uL (4.8-10.8) Red Blood Count 4.07 M/uL (4.2-5.4) Hemoglobin 11.7 g/dL (12.0-16.0) Hematocrit 36.0 % (37-47) Mean Corpuscular Volume 88.5 fL (80-100) Mean Corpuscular Hemoglobin 28.7 pg (25-34) Mean Corpuscular Hemoglobin Concent 32.5 g/dl (32-36) Platelet Count 181 K/uL (130-400) Mean Platelet Volume 10.9 fL (7.4-10.4) Neutrophils (%) (Auto) 64.6 % Lymphocytes (%) (Auto) 24.3 % Monocytes (%) (Auto) 7.3 % Eosinophils (%) (Auto) 2.9 % Basophils (%) (Auto) 0.7 % Neutrophils # (Auto) 3.97 K/uL (1.4-6.5) Lymphocytes # (Auto) 1.49 K/uL (1.2-3.4) Monocytes # (Auto) 0.45 K/uL (0.11-0.59) Eosinophils # (Auto) 0.18 K/uL (0-0.5) Basophils # (Auto) 0.04 K/uL (0-0.2) RDW Standard Deviation 53.2 fL (36.4-46.3) RDW Coefficient of Variation 16.5 % (11.5-14.5) Immature Granulocyte % (Auto) 0.2 % Immature Granulocyte # (Auto) 0.01 K/uL (0.00-0.02) Est Creatinine Clear Calc Drug Dose 65.0 ml/min Estimated GFR () 62.5 Estimated GFR (Non- 53.9 BUN/Creatinine Ratio 10.1 (10-20) Calcium Level 9.6 mg/dl (8.5-10.1) Total Bilirubin 0.5 mg/dl (0.2-1) Direct Bilirubin 0.1 mg/dl (0-0.2) Aspartate Amino Transf (AST/SGOT) 10 U/L (15-37) Alanine Aminotransferase (ALT/SGPT) 11 U/L (12-78) Alkaline Phosphatase 99 U/L (45-117) Total Creatine Kinase 67 U/L (26-192) Creatine Kinase MB 1.1 ng/ml (0.5-3.6) Creatine Kinase MB Ratio 1.6 (0-3.0) Troponin I < 0.015 ng/ml (0-0.045) Total Protein 7.1 gm/dl (6.4-8.2) Albumin 3.9 gm/dl (3.4-5.0) Lipase 206 U/L (73-393) Bedside Hemoglobin 11.9 g/dl (12.0-16.0) Bedside Hematocrit 35 % (37-47) Bedside Sodium 145 mEq/L (135-144) Bedside Potassium 3.8 mEq/L (3.3-5.0) Bedside Chloride 111 mEq/L (101-112) Bedside Total CO2 23 mEq/l (24-31) Anion Gap 16.0 mmol/L (16-25) Bedside Blood Urea Nitrogen 9 mg/dl (7-18) Bedside Creatinine 1.0 mg/dl (0.6-1.3) Bedside Glucose (other) 93 mg/dl (70-99) Bedside Ionized Calcium (Amelia) 1.26 mmol/l (1.12-1.32) Bedside Troponin I < 0.030 ng/ml (0-0.045) Laboratory results as stated above per my review. Medications Administered Medications (Trade) Dose Ordered Sig/Galileo Route Start Time Stop Time Status Last Admin Dose Admin Morphine Sulfate (MoRPHine SULFATE INJ) 4 mg NOW STAT IV 10/22/17 19:14 10/22/17 19:23 DC 10/22/17 19:34 4 MG Procedure External jugular venous cannulation: Due to the lack of ability to obtain IV access, using ultrasound, a peripheral IV was placed in the left external jugular vein without difficulty. Blood work was drawn from this. The patient tolerated the procedure well. It was done after alcohol prep. ECG Indication: chest pain Rate (beats per minute): 70 Rhythm: atrial fibrillation Findings: no ectopy, other (No acute injury) ED Course 1720: Previous medical records were reviewed. The patient was evaluated in room C11. A complete history and physical examination was performed. 1849: I performed an external jugular cannulation as described above. 1913: Morphine Sulfate 4mg IV Medical Decision the differential was considered includes acute myocardial infarction, acute coronary syndrome, myocarditis, pericarditis, pericardial effusions /tamponade, esophageal perforation, thoracic aortic dissection, pulmonary embolism, pneumonia, pneumothorax, pancreatitis, shingles, acute cholecystitis, perforated abdominal viscus. This is a 67-year-old female who presents to the ED with a chief complaint of a pleuritic type chest pain. The patient states that it started a couple of weeks ago. She believes she was watching TV or on the computer. She describes it as a sharp pain. It is across the chest and in the right side as well. Her pain seems to be worse with movement as well as breathing. She is chronically on Eliquis for atrial fibrillation. Her physical exam was unremarkable. She did seem to have increased discomfort with certain movements as well as with palpation of the left chest wall. A twelve-lead EKG reveals A. fib which is chronic without acute injury or ectopy. Because the patient was a difficult blood draw and IV stick for the nursing staff and IV team/lab, I initiated a 20- gauge left EJ IV with ultrasound guidance. Blood work was drawn through this. An i-STAT lab was performed and revealed normal electrolytes, glucose, kidney function and hemoglobin. A chest x-ray did not show acute disease. Troponin was negative. The patient was told the results of the tests. She is felt to be stable for discharge per she was given IV morphine for discomfort. Medication Reconcilliation Current Medication List: was personally reviewed by me Blood Pressure Screening Patient's blood pressure: Elevated blood pressure Blood pressure disposition: Elevated BP felt to be situational Impression Primary Impression: Right-sided chest pain Additional Impression: Chest wall pain Scribe Attestation The scribe's documentation has been prepared under my direction and personally reviewed by me in its entirety. I confirm that the note above accurately reflects all work, treatment, procedures, and medical decision making performed by me. Departure Information Dispostion Home / Self-Care Referrals Marcelo Escoto M.D. (PCP) Forms Call Back Authorization, HOME CARE DOCUMENTATION FORM, IMPORTANT VISIT INFORMATION Patient Instructions Chest Pain - [facility], [facility] Additional Instructions Follow-up with your doctor for further care and evaluation in 1-2 days. Return to the emergency department for worsening or new symptoms or any concerns. You have been examined and treated today on an emergency basis only. This is not a substitute for, or an effort to provide, complete comprehensive medical care. It is impossible to recognize and treat all injuries or illnesses in a single emergency department visit. It is therefore important that you follow up closely with your doctor. Call as soon as possible for an appointment. Problem Qualifiers
[2017-10-22 19:34] LABS: BASO % 0.7 %; BASO ABS # 0.04 K/uL (0-0.2); COMPLETE YES; EOS % 2.9 %; IG% 0.2 %; LYMPH % 24.3 %; LYMPH ABS # 1.49 K/uL (1.2-3.4); MEAN CELL VOLUME 88.5 fL (80-100); MEAN CORPUSCULAR HEMOGLOBIN 28.7 pg (25-34); MEAN CORPUSCULAR HGB CONC 32.5 g/dl (32-36); MEAN PLATELET VOLUME 10.9 fL (7.4-10.4); MONO % 7.3 %; NEUT % 64.6 %; PLATELET COUNT 181 K/uL (130-400); RED BLOOD COUNT 4.07 M/uL (4.2-5.4); WHITE BLOOD COUNT 6.14 K/uL (4.8-10.8)
[2017-10-22 19:40] LABS: ALT/SGPT 11 U/L (12-78); AST/SGOT 10 U/L (15-37); BLOOD UREA NITROGEN 11 mg/dl (7-18); BUN/CREATININE RATIO 10.1 (10-20); CALCIUM 9.6 mg/dl (8.5-10.1); CARBON DIOXIDE 22 mmol/L (21-32); CHLORIDE 111 mmol/L (98-107); CREATININE 1.06 mg/dl (0.60-1.20); GLUCOSE 91 mg/dl (70-99); POTASSIUM 3.9 mmol/L (3.5-5.1); SODIUM 144 mmol/L (136-145)
[2017-10-22 19:45] LABS: ALKALINE PHOSPHATASE 99 U/L (45-117); CKMB/CK RATIO 1.6 (0-3.0)
[2017-10-22] MEDS ORDERED: PERCOCET HOME PACK PO ONE (20:30)
[2017-10-22 20:37] VITALS: BP 136/73; PULSE 64; O2SAT 98
== END 2017-10-22 20:37 | disposition home or self-care (01) ==
LOC: EDBD 17:12 → C.EDC 17:13
DX: R07.89 Other chest pain (principal); I48.91 Unspecified atrial fibrillation; I10 Essential (primary) hypertension; E78.5 Hyperlipidemia, unspecified; K21.9 Gastro-esophageal reflux disease without esophagitis; G40.909 Epilepsy, unspecified, not intractable, without status epilepticus; M10.9 Gout, unspecified; K57.92 Diverticulitis of intestine, part unspecified, without perforation or abscess without bleeding; J45.909 Unspecified asthma, uncomplicated; M19.90 Unspecified osteoarthritis, unspecified site; Z87.828 Personal history of other (healed) physical injury and trauma; Z87.81 Personal history of (healed) traumatic fracture; Z91.81 History of falling; Z90.49 Acquired absence of other specified parts of digestive tract; Z90.710 Acquired absence of both cervix and uterus; Z96.652 Presence of left artificial knee joint; Z98.890 Other specified postprocedural states; Z79.899 Other long term (current) drug therapy; Z91.09 Other allergy status, other than to drugs and biological substances; Z80.9 Family history of malignant neoplasm, unspecified; Z82.49 Family history of ischemic heart disease and other diseases of the circulatory system; Z84.1 Family history of disorders of kidney and ureter; Z82.0 Family history of epilepsy and other diseases of the nervous system

== ENCOUNTER 2017-10-28 23:06 | Emergency (ER) | payer OTHER ==
[~2017-10-28] VITALS: Ht 170.2 cm; Wt 106.0 kg
[2017-10-28 23:09] VITALS: TEMP 36.7; Ht 170.2 cm; Wt 106.0 kg
--- NOTE | 2017-10-28 23:41 | EMERGENCY ROOM VISIT NOTE ---
History Report prepared by Chiara: Evelin Hampton Under the Supervision of: Dr. Antonio Sauceda M.D. First contact with patient: 23:14 Chief Complaint: LEG PAIN,LEG INJURY Stated Complaint: LEFT LEG, PAIN, NUMBNESS, REDNESS History of Present Illness The patient is a 67 year old white female with a past medical history of atrial flutter, migraines, seizures, arthritis, hypertension, left knee replacement, gout, hyperlipidemia who presents to the ED with a cc of worsening left leg pain beginning this evening. She tried taking Aleve to some relief. Positive left leg numbness, tingling, swelling. Negative fever, chills. She denies any recent falls or trauma. She has a history of edema and has a pressure pump from wound care. She has not seen wound care in several years now. She is on Eliquis. She denies any history of DVT or diabetes. Source of History: patient Onset: this evening Position: leg (left) Quality: other (pain) Timing: worsening Associated Symptoms: + numbness, No fevers, No chills Note: Pt reports increased left leg swelling. Review of Systems See HPI for pertinent positives and negatives. A total of ten systems were reviewed and were otherwise negative. 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 (16) Fall (17) Fracture of rib with routine healing (18) Gastroesophageal reflux disease (19) Gout (20) Hernia (21) Hip pain (22) History of recent fall (23) Hyperlipidemia (24) Migraine (25) Neck pain (26) Rectal bleeding (27) renal insufficiency (28) Rib fractures (29) Seizure (30) Spinal stenosis (31) Sprain of knee (32) Status post fall (33) Unexplained night sweats Surgical Problems: (1) back surgery (2) Cholecystectomy (3) History of appendectomy (4) History of arthroplasty of left knee (5) Hysterectomy (6) neck surgery (7) Status post total left knee replacement Family History Cancer FHx: neurologic disorder Heart disease Hypertension Kidney disease Other kidney diseases Seizures Social History Smoking Status: Never Smoker Alcohol Use: none Drug Use: none Marital Status: single Housing Status: lives alone Occupation Status: retired Current/Historical Medications Scheduled Apixaban (Eliquis), 5 MG PO BID Ascorbic Acid (Ra Vitamin C), 500 MG PO QAM Docusate Sodium (Colace), 100 MG PO BID Estradiol Vaginal (Estrace), 0.25 APPL PV UD Ferrous Sulfate (Kp Ferrous Sulfate), 325 TAB PO BIDM Fluticasone Propionate (Nasal) (Flonase Allergy Relief), 2 SPRAY MORIS QAM Furosemide (Lasix), 20 MG PO QAM Ipratropium [place] (Nasal) (Ipratropium [place]), 2 SPRAYS MORIS TID Lamotrigine (Lamictal), 100 MG PO BID Lamotrigine (Lamictal), 200 MG PO BID Levetiractam (Levetiracetam), 500 MG PO BID Lorazepam (Ativan), 0.5 MG PO BID Magnesium Oxide (Mag-Ox), 400 MG PO BID Metoclopramide Hcl (Metoclopramide Hcl), 5 MG PO BID Multivitamin (Multivitamin), 1 TAB PO DAILY Pantoprazole Sodium (Protonix), 40 MG PO BID Potassium Chloride Microencaps (Potassium Chloride Er), 20 MEQ PO QAM Sulfa/Trimethoprim (Bactrim Ds 800MG/160MG), 1 TAB PO DAILY Scheduled PRN Albuterol Hfa (Ventolin Hfa), 2 PUFFS PO QID PRN for SOB/Wheezing Oxycodone Ir (Roxicodone Ir), 1-2 TAB PO Q4H PRN for Pain Allergies Coded Allergies: Adhesives (Verified Adverse Reaction, Unknown, ITCHY, 10/28/17) Physical Exam Vital Signs Date Time Temp Pulse Resp B/P (MAP) Pulse Ox O2 Delivery O2 Flow Rate FiO2 10/28/17 23:09 36.7 101 22 160/87 93 Room Air Physical Exam GENERAL: Awake, alert, well-appearing, NAD HENT: Normocephalic, atraumatic. EYES: Normal conjunctiva. Sclera non-icteric. NECK: Supple. No nuchal rigidity. FROM. RESPIRATORY: CTAB, no rhonchi, wheezing, crackles CARDIAC: Irregularly irregular but normocardic. Systolic ejection murmur at the aortic position. ABDOMEN: Soft, NTND, BS+ MSK: Left leg with no allodynia, compartments are soft, skin blanches, no calor , pins and needles over the dorsum, normal sensation in the DP and tibialis nerves. NEURO: GCS 15, CN 2-12 intact, moves all 4s on command SKIN: No rash or jaundice noted. Medical Decision & Procedures Laboratory Results 10/29/17 00:02 Red Blood Count 4.25, Mean Corpuscular Volume 87.3, Mean Corpuscular Hemoglobin 29.2, Mean Corpuscular Hemoglobin Concent 33.4, Mean Platelet Volume 11.2, Neutrophils (%) (Auto) 73.2, Lymphocytes (%) (Auto) 16.5, Monocytes (%) (Auto) 8.3, Eosinophils (%) (Auto) 1.2, Basophils (%) (Auto) 0.6, Neutrophils # (Auto) 6.65, Lymphocytes # (Auto) 1.50, Monocytes # (Auto) 0.75, Eosinophils # (Auto) 0.11, Basophils # (Auto) 0.05 10/29/17 00:02 Test 10/29/17 00:02 White Blood Count 9.08 K/uL (4.8-10.8) Red Blood Count 4.25 M/uL (4.2-5.4) Hemoglobin 12.4 g/dL (12.0-16.0) Hematocrit 37.1 % (37-47) Mean Corpuscular Volume 87.3 fL (80-100) Mean Corpuscular Hemoglobin 29.2 pg (25-34) Mean Corpuscular Hemoglobin Concent 33.4 g/dl (32-36) Platelet Count 189 K/uL (130-400) Mean Platelet Volume 11.2 fL (7.4-10.4) Neutrophils (%) (Auto) 73.2 % Lymphocytes (%) (Auto) 16.5 % Monocytes (%) (Auto) 8.3 % Eosinophils (%) (Auto) 1.2 % Basophils (%) (Auto) 0.6 % Neutrophils # (Auto) 6.65 K/uL (1.4-6.5) Lymphocytes # (Auto) 1.50 K/uL (1.2-3.4) Monocytes # (Auto) 0.75 K/uL (0.11-0.59) Eosinophils # (Auto) 0.11 K/uL (0-0.5) Basophils # (Auto) 0.05 K/uL (0-0.2) RDW Standard Deviation 52.9 fL (36.4-46.3) RDW Coefficient of Variation 16.6 % (11.5-14.5) Immature Granulocyte % (Auto) 0.2 % Immature Granulocyte # (Auto) 0.02 K/uL (0.00-0.02) Anion Gap 12.0 mmol/L (3-11) Estimated GFR () Estimated GFR (Non- BUN/Creatinine Ratio (10-20) Calcium Level mg/dl (8.5-10.1) Laboratory results reviewed by me Medications Administered Medications (Trade) Dose Ordered Sig/Galileo Route Start Time Stop Time Status Last Admin Dose Admin Acetaminophen/ Hydrocodone Bitart ([place] 5/325 Tab) 1 tab ONE STAT PO 10/28/17 23:46 10/28/17 23:49 DC 10/29/17 00:12 1 TAB Tramadol HCl (Ultram Tab) 25 mg NOW STAT PO 10/28/17 23:46 10/28/17 23:49 DC 10/29/17 00:12 25 MG ED Course 2318: The patient was evaluated in room C2B. A complete history and physical exam was performed. Medical Decision The patient is a 67 year old white female with a past medical history of atrial flutter, migraines, seizures, arthritis, hypertension, left knee replacement, gout, hyperlipidemia who presents to the ED with a cc of worsening left leg pain beginning this evening. Differential diagnosis: lymphedema, neuropathy, radiculopathy, cellulitis, DVT, compartment syndrome, diabetes. Patient was seen and evaluated at the bedside. Patient was complaining of some left lower extremity pain. Patient also did complain of some numbness which she further describes as pins and needles more like paresthesias. Patient does not have any other numbness tingling or weakness. I do not believe that this is a stroke. Patient does take elequis for prior history of atrial flutter. Patient's left lower extremity compartments are soft she does have some mild blanching erythema however is not warm I do not believe that it is cellulitic. She did have blood work that was completed along with pain ultrasound. Patient' s pain was not out of proportion to exam and she does have good pulses. I do not believe that she has any sort of arterial clot nor do I believe that she has compartment syndrome. Patient's blood work was fairly unremarkable. Patient had a normal white blood cell count. Patient bicarbonate 17 but a fairly normal anion gap. Of note some of the other labs were hemolyzed which may be related to the lower bicarbonate. Patient's left lower extremity ultrasound is negative. Patient was informed of the findings. Patient was deemed suitable for outpatient follow-up and treatment. Patient was given strict follow-up, discharge, and return precautions. All questions were answered. Patient was deemed suitable for outpatient follow-up at this time. Patient agreed with the plan of care and was safely discharged home. Medication Reconcilliation Current Medication List: was personally reviewed by me Blood Pressure Screening Patient's blood pressure: Elevated blood pressure Blood pressure disposition: Referred to PCP Impression Primary Impression: Leg pain, left Additional Impression: Left leg paresthesias Scribe Attestation The scribe's documentation has been prepared under my direction and personally reviewed by me in its entirety. I confirm that the note above accurately reflects all work, treatment, procedures, and medical decision making performed by me. Departure Information Dispostion Home / Self-Care Prescriptions Tramadol (Ultram) 50 Mg Tab 25 MG PO Q8H Y for Pain, #6 TAB Prov: Antonio Sauceda M.D. 10/29/17 Referrals Marcelo Escoto M.D. (PCP) Patient Instructions ED Lymphedema, ED Muscle Pain Leg Cramps, [facility] Additional Instructions Please return to the emergency department if you have worsening or recurrent symptoms not amenable to at-home treatment. Please call for a follow-up appointment with her primary care physician. Please take your medications as prescribed. If you have other concerns and/or complaints please feel free to also call your primary care physician's office or return the ED for further evaluation, management, and treatment. You were found to have an elevated blood pressure today (>120 sytolic or >90 diastolic). Per medicare guidelines, you need to follow up with this blood pressure screening with your Primary Care Physician (PCP). For a new PCP call [phone]. You received narcotic or benzodiazepene medication while in the emergency room today. This is an addictive medication that may cause drowziness as well as constipation. Do not drive, operate heavy machinery, or drink alcohol under the influence of this medication. You may take tylenol 650 mg every 6 hours as needed for pain. Take your medications as prescribed. You have been examined and treated today on an emergency basis only. This is not a substitute for, or an effort to provide, complete comprehensive medical care. It is impossible to recognize and treat all injuries or illnesses in a single emergency department visit. It is therefore important that you follow up closely with [facility], your PCP, and/or your specialist(s). Call as soon as possible for an appointment. Thank you for your time and consideration. I look forward to speaking with you again soon. Please don't hesitate to call us if you have any questions. Problem Qualifiers
[2017-10-28] MEDS ORDERED: TRAMADOL HCL 50 MG TAB PO STA (23:46)
[2017-10-28] MEDS ORDERED: HYDROCODONE/ACETAMOPHEN 5/325MG TAB PO STA (23:46)
[2017-10-29 00:17] LABS: BASO % 0.6 %; BASO ABS # 0.05 K/uL (0-0.2); COMPLETE YES; EOS % 1.2 %; HEMATOCRIT 37.1 % (37-47); IG% 0.2 %; LYMPH % 16.5 %; MEAN CELL VOLUME 87.3 fL (80-100); MEAN CORPUSCULAR HEMOGLOBIN 29.2 pg (25-34); MEAN CORPUSCULAR HGB CONC 33.4 g/dl (32-36); MEAN PLATELET VOLUME 11.2 fL (7.4-10.4); MONO % 8.3 %; NEUT % 73.2 %; PLATELET COUNT 189 K/uL (130-400); RED BLOOD COUNT 4.25 M/uL (4.2-5.4); WHITE BLOOD COUNT 9.08 K/uL (4.8-10.8)
[2017-10-29 00:29] LABS: BLOOD UREA NITROGEN 17 mg/dl (7-18); CARBON DIOXIDE 17 mmol/L (21-32); CHLORIDE 115 mmol/L (98-107); GLUCOSE 111 mg/dl (70-99); SODIUM 144 mmol/L (136-145)
[2017-10-29] MEDS ORDERED: TRAM-10 PO (01:45)
[2017-10-29 02:05] VITALS: BP 123/89; PULSE 73; O2SAT 97
--- NOTE | 2017-10-29 06:13 | DIAGNOSTIC IMAGING REPORT ---
L VENOUS DOPP LOWER EXT UNILAT CLINICAL HISTORY: LLE swelling pain. Edema. TECHNIQUE: Venous Doppler COMPARISON STUDY: None FINDINGS: Normal study IMPRESSION: Normal study The above report was generated using voice recognition software. It may contain grammatical, syntax or spelling errors. Electronically signed by: Liu Collins M.D. 10/29/2017 6:12 AM Dictated Date/Time: 10/29/2017 6:12 AM
== END 2017-10-29 02:05 | disposition home or self-care (01) ==
LOC: C.EDB 23:07 → C.EDC 10-29 02:05
DX: M79.605 Pain in left leg (principal); R20.2 Paresthesia of skin; I48.92 Unspecified atrial flutter; G43.909 Migraine, unspecified, not intractable, without status migrainosus; R56.9 Unspecified convulsions; M19.90 Unspecified osteoarthritis, unspecified site; I10 Essential (primary) hypertension; E78.5 Hyperlipidemia, unspecified; J45.909 Unspecified asthma, uncomplicated; K21.9 Gastro-esophageal reflux disease without esophagitis; M48.00 Spinal stenosis, site unspecified; Z96.652 Presence of left artificial knee joint; Z79.01 Long term (current) use of anticoagulants; Z90.710 Acquired absence of both cervix and uterus; Z82.49 Family history of ischemic heart disease and other diseases of the circulatory system; Z82.0 Family history of epilepsy and other diseases of the nervous system

== ENCOUNTER 2017-11-08 04:37 | Emergency (ER) | payer OTHER ==
[~2017-11-08] VITALS: Ht 170.2 cm; Wt 113.4 kg
[~2017-11-08 04:37] MED LIST changes: +LAMO200T35 PO; -LAMO200T38 PO; -TPM100 PO; -TPRSR/25 PO; +TRAM-10 PO
[2017-11-08 04:38] VITALS: TEMP 36.6; Ht 170.2 cm; Wt 113.4 kg
[2017-11-08 05:20] LABS: HEMATOCRIT 34.4 % (37-47); MEAN CELL VOLUME 90.3 fL (80-100); MEAN CORPUSCULAR HEMOGLOBIN 28.9 pg (25-34); MEAN PLATELET VOLUME 10.1 fL (7.4-10.4); PLATELET COUNT 183 K/uL (130-400); RED BLOOD COUNT 3.81 M/uL (4.2-5.4); WHITE BLOOD COUNT 7.13 K/uL (4.8-10.8)
--- NOTE | 2017-11-08 05:41 | EMERGENCY ROOM VISIT NOTE ---
History Report prepared by Chiara: Lopez Valdivia Under the Supervision of: Dr. Chandni Adams D.O. First contact with patient: 04:43 Chief Complaint: CHEST PAIN Stated Complaint: CHEST PAIN Nursing Triage Summary: Pt c/o of chest pain for the past three weeks. Pt states it is a lot worse today cannot describe when it happened, dyspnea on exertion. Pt states it sometimes goes down arms. History of Present Illness The patient is a 67 year old female who presents to the Emergency Room with complaints of intermittent chest pain beginning three weeks ago. The patient states she will have a day where she is experiencing discomfort all day, and another day were it is only for an hour. She reports she has been contemplating calling EMS. She states she called EMS tonight because she went to bed with chest pain and woke in the night with the same pain. The patient notes her pain is on her left side and radiates to her left arm. She denies left sided neck pain. The patient states it does not matter what she is doing, and there is not trigger to her discomfort. She reports she experiences shortness of breath with these episodes. The patient notes she has been experiencing abdominal pain and leg swelling. She states she has not tried anything for pain, and she has not felt sick. Source of History: patient Onset: three weeks ago Position: chest (left) Timing: intermittent Associated Symptoms: + SOB, + abdominal pain, No neck pain Note: Associated symptoms: leg swelling Review of Systems See HPI for pertinent positives & negatives. A total of 10 systems reviewed and were otherwise negative. 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 (16) Fall (17) Fracture of rib with routine healing (18) Gastroesophageal reflux disease (19) Gout (20) Hernia (21) Hip pain (22) History of recent fall (23) Hyperlipidemia (24) Migraine (25) Neck pain (26) Rectal bleeding (27) renal insufficiency (28) Rib fractures (29) Seizure (30) Spinal stenosis (31) Sprain of knee (32) Status post fall (33) Unexplained night sweats Surgical Problems: (1) back surgery (2) Cholecystectomy (3) History of appendectomy (4) History of arthroplasty of left knee (5) Hysterectomy (6) neck surgery (7) Status post total left knee replacement Family History Cancer FHx: neurologic disorder Heart disease Hypertension Kidney disease Other kidney diseases Seizures Social History Smoking Status: Never Smoker Alcohol Use: none Drug Use: none Marital Status: single Housing Status: lives alone Occupation Status: retired Current/Historical Medications Scheduled Apixaban (Eliquis), 5 MG PO BID Docusate Sodium (Colace), 100 MG PO BID Estradiol Vaginal (Estrace), 0.25 APPL PV UD Ferrous Sulfate (Kp Ferrous Sulfate), 325 TAB PO BIDM Fluticasone Propionate (Nasal) (Flonase Allergy Relief), 2 SPRAY MORIS QAM Furosemide (Lasix), 20 MG PO QAM Ipratropium [place] (Nasal) (Ipratropium [place]), 2 SPRAYS MORIS TID Lamotrigine (Lamictal), 100 MG PO BID Lamotrigine (Lamictal), 200 MG PO BID Levetiractam (Levetiracetam), 500 MG PO BID Lorazepam (Ativan), 0.5 MG PO BID Magnesium Oxide (Mag-Ox), 400 MG PO BID Metoclopramide Hcl (Metoclopramide Hcl), 5 MG PO BID Metoprolol Tartrate (Lopressor), 25 MG PO DAILY Multivitamin (Multivitamin), 1 TAB PO DAILY Pantoprazole Sodium (Protonix), 40 MG PO BID Potassium Chloride Microencaps (Potassium Chloride Er), 20 MEQ PO QAM Sulfa/Trimethoprim (Bactrim Ds 800MG/160MG), 1 TAB PO DAILY Scheduled PRN Albuterol Hfa (Ventolin Hfa), 2 PUFFS PO QID PRN for SOB/Wheezing Allergies Coded Allergies: Adhesives (Verified Adverse Reaction, Unknown, ITCHY, 10/28/17) Physical Exam Vital Signs Date Time Temp Pulse Resp B/P (MAP) Pulse Ox O2 Delivery O2 Flow Rate FiO2 11/08/17 06:52 68 18 152/81 98 Room Air 11/08/17 06:28 72 18 154/89 95 Room Air 11/08/17 04:55 70 11/08/17 04:38 36.6 58 18 163/91 94 Room Air 11/08/17 04:38 Room Air Physical Exam General: Obese female who appears comfortable on exam. HEENT: Head - normocephalic and atraumatic Pupils are equal, round, and reactive to light. Extraocular eye muscles are intact, and sclera are anicteric. Nose - moist nasal mucosa without discharge. Mouth - moist buccal mucosa. Oropharynx is nonerythematous and there is no tonsillar exudate or edema noted. Neck: Supple; no JVD, nuchal rigidity, cervical lymphadenopathy. Heart: Irregularly irregular. There is a normal S1 and S2 with no murmurs, clicks, or gallops appreciated. Lungs: Diminished breath sounds secondary to body habitus, otherwise clear to auscultation bilaterally with no wheezes, rales, or rhonchi. Chest: There are no skin lesions noted. The patient has no reproducible pain on exam. Abdomen: Soft, completely nontender, nondistended, with good bowel sounds. There are no palpable pulsatile masses or hepatosplenomegaly. There is no guarding, rigidity, or rebound noted. Extremities: No evidence of cyanosis or clubbing. Moderate lower extremity edema. There are easily palpable peripheral pulses. Skin: warm and dry with good turgor and no rashes. Medical Decision & Procedures Laboratory Results 11/08/17 05:12 11/08/17 05:12 Test 11/08/17 05:12 Red Blood Count 3.81 M/uL (4.2-5.4) Mean Corpuscular Volume 90.3 fL (80-100) Mean Corpuscular Hemoglobin 28.9 pg (25-34) Mean Corpuscular Hemoglobin Concent 32.0 g/dl (32-36) RDW Standard Deviation 56.1 fL (36.4-46.3) RDW Coefficient of Variation 16.9 % (11.5-14.5) Mean Platelet Volume 10.1 fL (7.4-10.4) Anion Gap 3.0 mmol/L (3-11) Est Creatinine Clear Calc Drug Dose 61.9 ml/min Estimated GFR () 57.8 Estimated GFR (Non- 49.9 BUN/Creatinine Ratio 22.5 (10-20) Calcium Level 8.7 mg/dl (8.5-10.1) Total Bilirubin 0.3 mg/dl (0.2-1) Aspartate Amino Transf (AST/SGOT) 8 U/L (15-37) Alanine Aminotransferase (ALT/SGPT) 13 U/L (12-78) Alkaline Phosphatase 117 U/L (45-117) Total Creatine Kinase 75 U/L (26-192) Creatine Kinase MB 1.2 ng/ml (0.5-3.6) Creatine Kinase MB Ratio 1.6 (0-3.0) Troponin I < 0.015 ng/ml (0-0.045) Total Protein 6.7 gm/dl (6.4-8.2) Albumin 3.5 gm/dl (3.4-5.0) Globulin 3.2 gm/dl (2.5-4.0) Albumin/Globulin Ratio 1.1 (0.9-2) Laboratory results per my review. Medications Administered Medications (Trade) Dose Ordered Sig/Galileo Route Start Time Stop Time Status Last Admin Dose Admin Ketorolac Tromethamine (Toradol Inj) 60 mg NOW STAT IM 11/08/17 06:16 11/08/17 06:17 DC 11/08/17 06:22 60 MG Procedure 0616: Ordered Ketorolac Tromethamine 60mg IM ECG Indication: chest pain Rate (beats per minute): 66 Rhythm: atrial flutter Findings: no ectopy, other (variable block) ED Course 0438: Past medical records reviewed. The patient was evaluated in room B09 by the medical student under my supervision. A complete history and physical exam was performed. 0458: The patient was evaluated in room B09 by me. A complete history and physical examination were performed. Nursing notes and previous electronic medical records were reviewed. Labs were drawn as above. A twelve-lead EKG was obtained as described above. 0615: Upon reevaluation, the patient is still having twinges of pain. I discussed findings and results with her. She verbalized agreement of the treatment plan. She will receive Toradol and will be discharged home. 0616: Ordered Ketorolac Tromethamine 60mg IM Medical Decision The patient is a 67 year old female who presents to the ED with chest pain. Differential diagnosis includes anxiety, ACS, pleurisy, costochondritis. Lab results show: WBC of 7.1, hemoglobin of 11, hematocrit of 34.4, normal renal function, normal glucose, negative cardiac enzymes, normal LFTs. This is 67-year-old female patient who presents to the emergency department with intermittent episodes of left-sided chest pain over the past 2-3 weeks. The patient developed the discomfort again tonight before going to bed and then awoke from sleep with it. Despite these recurrent episodes of chest discomfort that lasts for approximately 20 minutes at rest or with exertion, her cardiac enzymes remain negative. The patient was given Toradol for her pain with relief of her symptoms. She was encouraged to follow-up with her PCP if the pain persists. Otherwise, if the symptoms worsen, she should return to the ER. Medication Reconcilliation Current Medication List: was personally reviewed by me Blood Pressure Screening Patient's blood pressure: Elevated blood pressure Blood pressure disposition: Referred to PCP Impression Primary Impression: Left sided chest pain Scribe Attestation The scribe's documentation has been prepared under my direction and personally reviewed by me in its entirety. I confirm that the note above accurately reflects all work, treatment, procedures, and medical decision making performed by me. Departure Information Dispostion Home / Self-Care Referrals Marcelo Escoto M.D. (PCP) Forms Call Back Authorization, HOME CARE DOCUMENTATION FORM, IMPORTANT VISIT INFORMATION Patient Instructions ED Chest Pain Atypical Unkn Cause, My [facility] Additional Instructions If the chest pain episodes continue, follow up with PCP for cardiology evaluation Return to the ER for worsening symptoms
[2017-11-08 05:52] LABS: ALT/SGPT 13 U/L (12-78); AST/SGOT 8 U/L (15-37); BLOOD UREA NITROGEN 25 mg/dl (7-18); BUN/CREATININE RATIO 22.5 (10-20); CALCIUM 8.7 mg/dl (8.5-10.1); CARBON DIOXIDE 28 mmol/L (21-32); CHLORIDE 110 mmol/L (98-107); CREATININE 1.13 mg/dl (0.60-1.20); GLUCOSE 90 mg/dl (70-99); POTASSIUM 4.1 mmol/L (3.5-5.1); SODIUM 141 mmol/L (136-145)
[2017-11-08 05:57] LABS: ALB/GLOB RATIO 1.1 (0.9-2); ALKALINE PHOSPHATASE 117 U/L (45-117); CKMB/CK RATIO 1.6 (0-3.0)
[2017-11-08] MEDS ORDERED: LPR25 PO (06:05)
[2017-11-08] MEDS ORDERED: KETOROLAC TROMETHAMINE 60 MG/2 ML VIAL IM STA (06:16)
[2017-11-08 06:52] VITALS: BP 152/81; PULSE 68; O2SAT 98
== END 2017-11-08 07:19 | disposition home or self-care (01) ==
LOC: EDBD 04:37 → C.EDB 04:38
DX: R07.89 Other chest pain (principal); R10.9 Unspecified abdominal pain; R60.0 Localized edema; J45.909 Unspecified asthma, uncomplicated; I10 Essential (primary) hypertension; K21.9 Gastro-esophageal reflux disease without esophagitis; E78.5 Hyperlipidemia, unspecified; Z82.49 Family history of ischemic heart disease and other diseases of the circulatory system; Z84.1 Family history of disorders of kidney and ureter; Z82.0 Family history of epilepsy and other diseases of the nervous system

== ENCOUNTER → 2017-11-15 | Outpatient (CLI) | payer OTHER ==
[~2017-11-15] MED LIST changes: +LPR25 PO; -OXYC1TAB3 PO; -TRAM-10 PO; -[UNRECOGNIZED DRUG - CODE] PO
== END ==
LOC: C.LAB 12:56
PROVIDERS: ATTEND Physician Assistant Medical
DX: L65.9 Nonscarring hair loss, unspecified (principal)

== ENCOUNTER → 2017-11-22 | Outpatient (CLI) | payer OTHER ==
[~2017-11-22] MED LIST changes: +ATROPINE SULFATE 0.1 MG/ML 5ML SYR ONE; +DOBUTamine HCL 12.5 MG/ML 20 ML VIAL ONE; +METOPROLOL TARTRATE 1 MG/ML VIAL ONE
--- NOTE | 2017-11-22 14:15 | ECHOCARDIOGRAM REPORT ---
*NOTICE TO RECEIVING [employer] This information is strictly Confidential and protected under [place] law. [place] law prohibits you from making any further disclosure of this information unless further disclosure is expressly permitted by the written consent of the person to whom it pertains or is authorized by law. A general authorization for the release of medical or other information is not sufficient for this purpose. Hospital accepts no responsibility if the information is made available to any other person, INCLUDING THE PATIENT. Interpretation Summary * Name: LAURA GEIGER Study Date: 11/22/2017 10:42 AM BP: 125/49 mmHg * Patient Location: [facility] HR: 77 * : 1950 (M/d/yyyy) Gender: Female Height: 67 in * Age: 67 yrs Ethnicity: [place] Weight: 250 lb * Ordering Physician: Elvin Ricks * Referring Physician: Elvin Ricks * Performed By: Dorie Bell RDCS * * Reason For Study: CHEST PAIN * BSA: 2.2 m2 * -- Conclusions -- * Left ventricular systolic function is normal. * The left atrium is mildly dilated. * Mild valvular aortic stenosis. * There is mild mitral regurgitation. * Compared to study from 03/14/2017, there is no significant change Procedure Details * A complete two-dimensional transthoracic echocardiogram was performed (2D, M-mode, Doppler and color flow Doppler). Left Ventricle * The left ventricle is normal in size. * There is normal left ventricular wall thickness. * Left ventricular systolic function is normal. * The left ventricular wall motion is normal. Right Ventricle * The right ventricle is normal in size and function. * The right ventricular systolic function is normal as assessed by tricuspid annular plane systolic excursion (TAPSE) (normal >1.5 cm). Atria * The left atrium is mildly dilated. * Right atrial size is normal. Mitral Valve * The mitral valve anatomy is normal. * There is mild mitral regurgitation. Tricuspid Valve * The tricuspid valve is not well visualized, but is grossly normal. * Significant tricuspid regurgitation is absent. Aortic Valve * The aortic valve is not well visualized. * Mild valvular aortic stenosis. * Trace aortic regurgitation. Great Vessels * The aortic root is normal size. Pericardium/Pleural * There is no pericardial effusion. MMode 2D Measurements and Calculations IVSd 0.84 cm IVSs 1.5 cm LVIDd 4.9 cm LVIDs 3.6 cm LVPWd 1.1 cm LVPWs 1.8 cm IVS/LVPW 0.76 FS 26.6 % EDV(Teich) 114.3 ml ESV(Teich) 55.1 ml EF(Teich) 51.8 % EDV(cubed) 119.7 ml ESV(cubed) 47.3 ml EF(cubed) 60.4 % % IVS thick 84.5 % % LVPW thick 65.4 % LV mass(C)d 169.7 grams LV mass(C)dI 76.4 grams/m\S\2 LV mass(C)s 243.5 grams LV mass(C)sI 109.5 grams/m\S\2 SV(Teich) 59.3 ml SI(Teich) 26.7 ml/m\S\2 SV(cubed) 72.4 ml SI(cubed) 32.5 ml/m\S\2 Ao root diam 3.1 cm Ao root area 7.5 cm\S\2 LA dimension 4.3 cm LA/Ao 1.4 LVAd ap4 31.6 cm\S\2 LVLd ap4 8.1 cm EDV(MOD-sp4) 104.9 ml EDV(sp4-el) 105.2 ml LVAs ap4 19.1 cm\S\2 LVLs ap4 6.6 cm ESV(MOD-sp4) 47.0 ml ESV(sp4-el) 47.3 ml EF(MOD-sp4) 55.2 % EF(sp4-el) 55.0 % LVAd ap2 30.4 cm\S\2 LVLd ap2 8.7 cm EDV(MOD-sp2) 86.9 ml EDV(sp2-el) 89.8 ml LVAs ap2 19.7 cm\S\2 LVLs ap2 7.6 cm ESV(MOD-sp2) 43.5 ml ESV(sp2-el) 43.2 ml EF(MOD-sp2) 49.9 % EF(sp2-el) 51.8 % LVLd %diff 7.5 % EDV(MOD-bp) 99.5 ml LVLs %diff 13.7 % ESV(MOD-bp) 48.2 ml EF(MOD-bp) 51.6 % SV(MOD-sp4) 57.9 ml SI(MOD-sp4) 26.0 ml/m\S\2 SV(MOD-sp2) 43.4 ml SI(MOD-sp2) 19.5 ml/m\S\2 SV(MOD-bp) 51.3 ml SI(MOD-bp) 23.1 ml/m\S\2 SV(sp4-el) 57.9 ml SI(sp4-el) 26.0 ml/m\S\2 SV(sp2-el) 46.6 ml SI(sp2-el) 20.9 ml/m\S\2 Doppler Measurements and Calculations Ao V2 max 266.5 cm/sec Ao max PG 28.4 mmHg Ao max PG (full) 21.7 mmHg LV V1 max PG 6.7 mmHg LV V1 max 129.9 cm/sec
== END | disposition home or self-care (01) ==
LOC: C.CPL 10:36
PROVIDERS: ATTEND Internal Medicine Cardiovascular Disease
DX: R07.9 Chest pain, unspecified (principal)

== ENCOUNTER 2017-12-17 12:52 | Observation (INO) | payer OTHER ==
[~2017-12-17] VITALS: Ht 170.2 cm; Wt 112.2 kg
[~2017-12-17 12:52] MED LIST changes: -ATROPINE SULFATE 0.1 MG/ML 5ML SYR ONE; -DOBUTamine HCL 12.5 MG/ML 20 ML VIAL ONE; -METOPROLOL TARTRATE 1 MG/ML VIAL ONE
[2017-12-17 14:20] LABS: ISTAT CREATININE 1.1 mg/dl (0.6-1.3); ISTAT IONIZED CALCIUM 0.87 mmol/l (1.12-1.32); ISTAT POTASSIUM 5.2 mEq/L (3.3-5.0)
--- NOTE | 2017-12-17 14:44 | DIAGNOSTIC IMAGING REPORT ---
LEFT ANKLE 3 VIEWS CLINICAL HISTORY: Fall with left ankle injury. FINDINGS: 3 views of the left ankle are correlated with radiograph of the left tibia and fibula dated 04/11/2007. The skeletal structures are osteopenic. There is a nondistracted spiral fracture of the distal fibula. The distal tibia appears intact. The ankle mortise is maintained. Benign-appearing periostitis is noted along the distal tibia and fibula. There are dorsal and plantar calcaneal enthesophytes. Calcification is seen along the course of the plantar fascia. Degenerative spurring is noted along the dorsal aspect of the tarsal bones. Soft tissue edema is present around ankle. IMPRESSION: 1. There is a subtle nondistracted spiral fracture of the distal fibula with overlying soft tissue edema. 2. Osteopenia, heel spurs, and arthritic change as above. Electronically signed by: Xu Tyler M.D. 12/17/2017 2:42 PM Dictated Date/Time: 12/17/2017 2:39 PM
[2017-12-17] MEDS ORDERED: MECL1TAB40 PO (15:08)
--- NOTE | 2017-12-17 15:08 | EMERGENCY ROOM VISIT NOTE ---
History First contact with patient: 13:35 Chief Complaint: FALL Stated Complaint: FALL/ANKLE PAIN/VERTIGO History of Present Illness The patient is a 67 year old female who presents to the Emergency Room with complaints of left ankle pain after a fall. The patient reports that she was walking and lost her balance causing herself to fall on the left ankle. She states that she thinks it might be related to taking meclizine. She denies striking her head or other injuries. She denies recent illness, fevers, chest pains or shortness of breath. The patient has no other specific complaints at this time. Palpation of the area makes the pain worse. 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 (16) Fall (17) Fracture of rib with routine healing (18) Gastroesophageal reflux disease (19) Gout (20) Hernia (21) Hip pain (22) History of recent fall (23) Hyperlipidemia (24) Migraine (25) Neck pain (26) Rectal bleeding (27) renal insufficiency (28) Rib fractures (29) Seizure (30) Spinal stenosis (31) Sprain of knee (32) Status post fall (33) Unexplained night sweats Surgical Problems: (1) back surgery (2) Cholecystectomy (3) History of appendectomy (4) History of arthroplasty of left knee (5) Hysterectomy (6) neck surgery (7) Status post total left knee replacement Family History Cancer FHx: neurologic disorder Heart disease Hypertension Kidney disease Other kidney diseases Seizures Social History Smoking Status: Never Smoker Alcohol Use: none Drug Use: none Marital Status: single Housing Status: lives alone Occupation Status: retired Current/Historical Medications Scheduled Apixaban (Eliquis), 5 MG PO BID Docusate Sodium (Colace), 100 MG PO BID Estradiol Vaginal (Estrace), 0.25 APPL PV UD Ferrous Sulfate (Kp Ferrous Sulfate), 325 TAB PO BIDM Fluticasone Propionate (Nasal) (Flonase Allergy Relief), 2 SPRAY MORIS QAM Furosemide (Lasix), 20 MG PO QAM Ipratropium [place] (Nasal) (Ipratropium [place]), 2 SPRAYS MORIS TID Lamotrigine (Lamictal), 100 MG PO BID Lamotrigine (Lamictal), 200 MG PO BID Levetiractam (Levetiracetam), 500 MG PO BID Lorazepam (Ativan), 0.5 MG PO BID Magnesium Oxide (Mag-Ox), 400 MG PO BID Metoclopramide Hcl (Metoclopramide Hcl), 5 MG PO BID Metoprolol Tartrate (Lopressor), 25 MG PO DAILY Multivitamin (Multivitamin), 1 TAB PO DAILY Pantoprazole Sodium (Protonix), 40 MG PO BID Potassium Chloride Microencaps (Potassium Chloride Er), 20 MEQ PO QAM Sulfa/Trimethoprim (Bactrim Ds 800MG/160MG), 1 TAB PO DAILY Scheduled PRN Albuterol Hfa (Ventolin Hfa), 2 PUFFS PO QID PRN for SOB/Wheezing Physical Exam Vital Signs Date Time Temp Pulse Resp B/P (MAP) Pulse Ox O2 Delivery O2 Flow Rate FiO2 12/17/17 14:19 86 20 153/76 96 12/17/17 13:06 36.7 86 18 113/92 96 Room Air Physical Exam CONSTITUTIONAL/VITAL SIGNS: Reviewed / noted above. GENERAL: Non-toxic in appearance. INTEGUMENTARY: Warm, dry, and [place]. HEAD: Normocephalic. EYES: without scleral icterus or trauma. ENT/OROPHARYNX: clear and moist. LYMPHADENOPATHY/NECK: Is supple without lymphadenopathy or meningismus. RESPIRATORY: Lungs clear and equal. CARDIOVASCULAR: Regular rate and rhythm. GI/ABDOMEN: Soft and nontender. No organomegaly or pulsatile mass. No rebound or guarding. Normal bowel sounds. EXTREMITIES: Warm and well perfused. There is noted be some tenderness in the left ankle primarily in the lateral malleolus area. BACK: No CVA tenderness. NEUROLOGICAL: Intact without focal deficits. PSYCHIATRIC: normal affect. MUSCULOSKELETAL: Normally developed with good muscle tone. TRIAGE NURSING DOCUMENTATION REVIEWED. Medical Decision & Procedures ER Provider Diagnostic Interpretation: LEFT ANKLE 3 VIEWS CLINICAL HISTORY: Fall with left ankle injury. FINDINGS: 3 views of the left ankle are correlated with radiograph of the left tibia and fibula dated 04/11/2007. The skeletal structures are osteopenic. There is a nondistracted spiral fracture of the distal fibula. The distal tibia appears intact. The ankle mortise is maintained. Benign-appearing periostitis is noted along the distal tibia and fibula. There are dorsal and plantar calcaneal enthesophytes. Calcification is seen along the course of the plantar fascia. Degenerative spurring is noted along the dorsal aspect of the tarsal bones. Soft tissue edema is present around ankle. IMPRESSION: 1. There is a subtle nondistracted spiral fracture of the distal fibula with overlying soft tissue edema. 2. Osteopenia, heel spurs, and arthritic change as above. Laboratory Results Test 12/17/17 14:08 Bedside Hemoglobin 13.3 g/dl (12.0-16.0) Bedside Hematocrit 39 % (37-47) Bedside Sodium 138 mEq/L (135-144) Bedside Potassium 5.2 mEq/L (3.3-5.0) Bedside Chloride 108 mEq/L (101-112) Bedside Total CO2 24 mEq/l (24-31) Anion Gap 12.0 mmol/L (16-25) Bedside Blood Urea Nitrogen 20 mg/dl (7-18) Bedside Creatinine 1.1 mg/dl (0.6-1.3) Bedside Glucose (other) 93 mg/dl (70-99) Bedside Ionized Calcium (Amelia) 0.87 mmol/l (1.12-1.32) ED Course The patient was told the results of the test per she did not require pain medication. A postop tractor boot was applied the left leg. The patient will use her walker at home. She is to follow-up with orthopedics. Medical Decision The patient presents with the above. The patient fell on her left ankle. She complains of pain in that area. She denies striking her head or having other areas of pain. X-ray reveals a nondisplaced fracture of the left lateral malleolus. She was placed in a fracture boot. She was advised to use a walker. She was given referral to orthopedics. Medication Reconcilliation Current Medication List: was personally reviewed by ca Blood Pressure Screening Patient's blood pressure: Normal blood pressure Impression Primary Impression: Lateral malleolar fracture Departure Information Dispostion Home / Self-Care Referrals Marcelo Esocto M.D. (PCP) Billy Peralta, DO Patient Instructions Ankle Fx, My [facility] Additional Instructions Follow-up with orthopedics. Call tomorrow for an appointment. Dr. Peralta is noted above. Take Tylenol or Motrin as needed for pain. Use the splint provided to provide support of the ankle.
[2017-12-17 15:30] VITALS: BP 158/66; PULSE 57; TEMP 36.9; O2SAT 100
[2017-12-17] MEDS ORDERED: ONDANSETRON INJ 2 MG/ML 2 ML VIAL IV PRN (16:30)
[2017-12-17] MEDS ORDERED: ALBUTEROL HFA 8 GM INHALER INH PRN (16:30)
[2017-12-17] MEDS ORDERED: ACETAMINOPHEN 325 MG TAB PO PRN (16:30)
[2017-12-17] MEDS ORDERED: POLYETHYLENE (MIRALAX) 17 GM PACK PO PRN (16:30)
[2017-12-17] MEDS ORDERED: MAGNESIUM HYDROXIDE SUSP 30 ML UDC PO PRN (16:30)
[2017-12-17] MEDS ORDERED: ALUMINUM/MAGNESIUM/SIMETH (MAALOX MAX) 30 ML UDC PO PRN (16:30)
--- NOTE | 2017-12-17 16:55 | History and Physical ---
History & Physical Date & Time of Service: Dec 17, 2017 at 16:34 Chief Complaint: Fall/Ankle Pain/Vertigo Primary Care Physician: Marcelo Escoto M.D. History of Present Illness Source: patient, clinic records, hospital records Patient is a 68 y/o female, with PMHx of chronic a.fib, HTN, chronic anemia, asthma, anxiety, chronic lower extremity edema, seizure disorder, h/o recurrent cellulitis, and GERD, who presented to the ED because of a fall that occurred today. Patient states she was started on Meclizine a few days ago by her PCP. Today was her first day of taking the medication. Shortly after she took Meclizine, she started to feel "loopy." causing her to fall and land on her L ankle. She recalls the entire event. She denies any syncope/LOC. She denies any lightheadedness/dizziness. She denies any recent illnesses. In ED, she was found to have L distal fibula fracture. ED was planning to discharge her home, but she was unsteady on her feet and felt she was not safe to return home. They tried to discharge her to [facility] but there were no beds available. +L ankle pain. Patient denies any fever, chills, sweats, lightheadedness, dizziness , vision changes, CP, palpitations, edema, SOB, wheezing, cough, abdominal pain , nausea, vomiting, diarrhea, urinary symptoms, melena, numbness/tingling, weakness, anxiety/depression, active bleeding, or new skin discoloration/ changes. Past Medical/Surgical History Medical Problems: chronic a.fib HTN chronic anemia asthma anxiety chronic lower extremity edema seizure disorder h/o recurrent cellulitis GERD Surgical Problems: (1) back surgery Status: Resolved (2) Cholecystectomy Status: Resolved (3) Hysterectomy Status: Resolved (4) neck surgery Status: Resolved Family History Cancer FHx: neurologic disorder Heart disease Hypertension Kidney disease Other kidney diseases Seizures Social History Smoking Status: Never Smoker Drug Use: none Marital Status: single Housing status: lives alone Occupational Status: retired Immunizations History of Influenza Vaccine: Yes Influenza Vaccine Date: Sep 10, 2011 History of Tetanus Vaccine?: Yes Tetanus Immunization Date: Mar 07, 1997 History of Pneumococcal: Yes Pneumococcal Date: Sep 09, 2011 History of Hepatitis B Vaccine: No Hepatitis Immunization Date: Jul 01, 2006 Multi-Drug Resistant Organisms History of MDRO: No Allergies Coded Allergies: Adhesives (Verified Adverse Reaction, Unknown, ITCHY, 12/17/17) Home Medications Scheduled Apixaban (Eliquis), 5 MG PO BID Docusate Sodium (Colace), 100 MG PO BID Estradiol Vaginal (Estrace), 0.25 APPL PV UD Ferrous Sulfate (Kp Ferrous Sulfate), 325 TAB PO BIDM Fluticasone Propionate (Nasal) (Flonase Allergy Relief), 2 SPRAY MORIS QAM Furosemide (Lasix), 20 MG PO QAM Ipratropium Kincaid (Nasal) (Ipratropium Kincaid), 2 SPRAYS MORIS TID Lamotrigine (Lamictal), 100 MG PO BID Lamotrigine (Lamictal), 200 MG PO BID Levetiractam (Levetiracetam), 500 MG PO BID Lorazepam (Ativan), 0.5 MG PO BID Magnesium Oxide (Mag-Ox), 400 MG PO BID Meclizine HCl (Meclizine HCl), 1 TAB PO TID Metoclopramide Hcl (Metoclopramide Hcl), 5 MG PO BID Metoprolol Tartrate (Lopressor), 25 MG PO DAILY Multivitamin (Multivitamin), 1 TAB PO DAILY Pantoprazole Sodium (Protonix), 40 MG PO BID Potassium Chloride Microencaps (Potassium Chloride Er), 20 MEQ PO QAM Sulfa/Trimethoprim (Bactrim Ds 800MG/160MG), 1 TAB PO DAILY Scheduled PRN Albuterol Hfa (Ventolin Hfa), 2 PUFFS PO QID PRN for SOB/Wheezing Physical Exam Vital Signs Date Time Temp Pulse Resp B/P (MAP) Pulse Ox O2 Delivery O2 Flow Rate FiO2 12/17/17 16:15 69 16 136/91 98 Room Air 12/17/17 14:19 86 20 153/76 96 12/17/17 13:06 36.7 86 18 113/92 96 Room Air General Appearance: no apparent distress, + obese Head: normocephalic, atraumatic Eyes: normal inspection, PERRL ENT: hearing grossly normal Neck: supple Respiratory/Chest: lungs clear, no respiratory distress, no accessory muscle use Cardiovascular: + systolic murmur, + irregularly irregular (rate controlled ) Abdomen/GI: normal bowel sounds, non tender, soft Back: normal inspection Extremities/Musculoskelatal: no calf tenderness, no pedal edema, + pertinent finding (LLE in walking boot ) Neurologic/Psych: alert, normal mood/affect, oriented x 3 Skin: normal color, warm/dry, no rash Diagnostics Laboratory Results Results Past 24 Hours Test 12/17/17 14:08 Range/Units Bedside Hemoglobin 13.3 12.0-16.0 g/dl Bedside Hematocrit 39 37-47 % Bedside Sodium 138 135-144 mEq/L Bedside Potassium 5.2 3.3-5.0 mEq/L Bedside Chloride 108 101-112 mEq/L Bedside Total CO2 24 24-31 mEq/l Anion Gap 12.0 16-25 mmol/L Bedside Blood Urea Nitrogen 20 7-18 mg/dl Bedside Creatinine 1.1 0.6-1.3 mg/dl Bedside Glucose (other) 93 70-99 mg/dl Bedside Ionized Calcium (Amelia) 0.87 1.12-1.32 mmol/l Diagnostic Radiology LEFT ANKLE 3 VIEWS CLINICAL HISTORY: Fall with left ankle injury. FINDINGS: 3 views of the left ankle are correlated with radiograph of the left tibia and fibula dated 04/11/2007. The skeletal structures are osteopenic. There is a nondistracted spiral fracture of the distal fibula. The distal tibia appears intact. The ankle mortise is maintained. Benign-appearing periostitis is noted along the distal tibia and fibula. There are dorsal and plantar calcaneal enthesophytes. Calcification is seen along the course of the plantar fascia. Degenerative spurring is noted along the dorsal aspect of the tarsal bones. Soft tissue edema is present around ankle. IMPRESSION: 1. There is a subtle nondistracted spiral fracture of the distal fibula with overlying soft tissue edema. 2. Osteopenia, heel spurs, and arthritic change as above. Electronically signed by: Xu Tyler M.D. 12/17/2017 2:42 PM Dictated Date/Time: 12/17/2017 2:39 PM The status of this report is Signed. Draft = Not yet reviewed or approved by Radiologist. Signed = Reviewed and approved by Radiologist. Impression Assessment and Plan Patient is a 68 y/o female, with PMHx of chronic a.fib, HTN, chronic anemia, asthma, anxiety, chronic lower extremity edema, seizure disorder, h/o recurrent cellulitis, and GERD, who presented to the ED because of a fall that occurred today. L distal fibula fracture s/p mechanical fall: - Admit to med/surg - Tylenol PRN for pain management - Consult orthopedics, appreciate recommendations - PT/OT consulted - Low b12 level in past- recheck in AM Chronic a.fib, HTN: - Eliquis 5 mg BID, Metoprolol 25 mg daily, Mag-Ox 400 mg BID - Hold KCL 20 mEq daily due to K of 5.2 on POC labs Chronic anemia, baseline hgb 11.0- STABLE: Ferrous Sulfate 325 mg BID Asthma: Continue home inhalers Anxiety: Ativan 0.5 mg BID Chronic lower extremity edema: Lasix 20 mg PO daily Seizure disorder: Continue Lamictal 300 mg BID, Levetiracetam 500 mg BID h/o recurrent cellulitis on chronic suppression therapy- follows w/ Dr. Gardner: Continue Bactrim GERD: Protonix 40 mg daily DVT Prophylaxis: Eliquis BID Code Status: LEVEL I, FULL Dispo: From home, lives alone- will likely need rehab placement- PT/OT and CM consulted Level of Care Med/Surg Resuscitation Status FULL RESUSCITATION VTE Prophylaxis VTE Risk Assessment Done? Y/N: Yes Risk Level: Moderate Given or contraindicated: Other Anticoagulation Note Attending Attestation & Admission Note: Pt seen/examined, chart reviewed, care plan d/w [place]. I agree w/ the cristina components of her documentation. 67yo female with h/o seizure disorder, chronic a. fib on anticoagulation, HTN, asthma, and chronic bactrim usage as prophylaxis for cellulitis who presented from home after a fall leading to a left lateral malleolus fracture. Patient states she recently was diagnosed with vertigo and placed on antivert. Oddly she reports feeling fine today and decided to take an antivert "because it says to take twice a day." (?) Prior to taking the antivert she had no vertigo. Sometime after taking the antivert she got up to a standing position and had immediate spinning sensation/unsteadiness on her feet and fell. No loss of consciousness. She reports several weeks of positional vertigo. She is now very upset because "of that medication" [antivert]. She blames the medication for her fall. Denies any other recent falls or head injury. She also tells me during the visit "I'm not going to wear that boot" [walking boot for left ankle/ foot]. PMH, PSH, allergies, meds, sochx, famhx, ros - reviewed VSS, no fever gen - obese, NAD, agitated mouth - MMM eyes - no nystagmus, PERRL head - CN 3-12 intact neck - no JVD heart - irregular, s1, s2, rate<100 lungs - CTA b/l abd - soft, NT, reducible midline hernia ext - 1-2+ edema on right, walking boot covering entire leg below the knee on left; cap refill on toes, left foot, <2 sec; pulses right foot 2+ neuro - no dysmetria finger/nose/finger maneuver both hands; strength 5/5 x 4 exts BMP - K 5.2 ankle films, left ankle - lateral malleolar fracture A/P: Mechanical fall leading to left lateral malleolar fracture. Etiology - the actual vertigo itself led to imbalance OR side effects from antivert contributed to fall. Difficult to say which is the culprit. Recent vertigo - ?BPV. chronic a. fib on anticoagulation. h/o low-normal vit B12 level in the past. asthma - controlled. HTN - controlled. mild hyperkalemia - 2nd to TMP/Sulfa use along with K supplement? hold both, repeat K in am. PT, OT, ortho consults requested. May need rehab if too impaired to walk safely at home. place on observation status. Mehdi RAY MD
[2017-12-17 17:50] VITALS: Ht 170.2 cm; Wt 112.2 kg
[2017-12-17 19:00] VITALS: O2SAT 100
[2017-12-17] MEDS: MAGNESIUM OXIDE 400 MG TAB PO SCH (20:58)
[2017-12-17] MEDS: METOCLOPRAMIDE HCL 5 MG TAB PO SCH (20:58)
[2017-12-17] MEDS: APIXABAN 2.5 MG TAB PO SCH (20:58)
[2017-12-17] MEDS: LEVETIRACETAM 500 MG TAB PO SCH (20:58)
[2017-12-17] MEDS: DOCUSATE SODIUM 100 MG CAP PO SCH (20:58)
[2017-12-17] MEDS: PANTOprazole SOD 40 MG TAB PO SCH (20:59)
[2017-12-17] MEDS ORDERED: NON-FORMULARY MEDICATION (Ipratropium Bromide (Nasal) (Ipratropium Bromide) 2 SPRAYS) NAE SCH (21:00)
[2017-12-17] MEDS: LORAZEPAM 0.5 MG TAB PO SCH (21:01)
--- NOTE | 2017-12-17 22:45 | EMERGENCY ROOM VISIT NOTE ---
ED Visit Note First contact with patient: 16:04 Patient is a 67-year-old female who was signed out to me awaiting an mandatory trial. She has a lateral malleolus fracture. She is cleared by Dr. Rees and if she could ambulate she was cleared to be DC'd home. Ambulatory trial was unsuccessful. She was unable to stand up. Unable to place at [facility] as there are no beds until Sunday. Unreasonable to go home as she cannot get herself up on her own and there is no one there to help her. Discussed with internal medicine patient will be observed and will likely need placement.
[2017-12-17 22:56] VITALS: BP 138/78; PULSE 80; TEMP 36.9; O2SAT 93
[2017-12-17 23:45] VITALS: BP 149/75; PULSE 79; TEMP 36.7; O2SAT 100
[2017-12-18] MEDS ORDERED: IV FLUIDS COMPLETED PRN (02:30)
[2017-12-18 07:09] VITALS: BP 115/79; PULSE 77; TEMP 37.4; O2SAT 95
[2017-12-18 07:38] LABS: HEMATOCRIT 34.3 % (37-47); HEMOGLOBIN 11.1 g/dL (12.0-16.0); MEAN CORPUSCULAR HEMOGLOBIN 29.1 pg (25-34); MEAN CORPUSCULAR HGB CONC 32.4 g/dl (32-36); MEAN PLATELET VOLUME 11.4 fL (7.4-10.4); PLATELET COUNT 177 K/uL (130-400); RED CELL DISTRIBUTION WIDTH CV 14.4 % (11.5-14.5); RED CELL DISTRIBUTION WIDTH SD 47.3 fL (36.4-46.3); WHITE BLOOD COUNT 7.07 K/uL (4.8-10.8)
[2017-12-18 08:10] LABS: CALCIUM 8.9 mg/dl (8.5-10.1); CREATININE 1.07 mg/dl (0.60-1.20); POTASSIUM 3.4 mmol/L (3.5-5.1)
--- NOTE | 2017-12-18 08:12 | ORTHOPEDIC CONSULTATION ---
DATE OF ADMISSION: 12/17/2017 ROOM NUMBER: Room 361. ATTENDING DOCTOR: Jaspreet Kimble MD. PRIMARY CARE PHYSICIAN: Marcelo Escoto III, MD. CHIEF COMPLAINT: Left ankle pain from an orthopedic standpoint. HISTORY OF PRESENT ILLNESS: Andriy is somewhat frustrated 67-year-old female with left ankle pain. She was placed on some medication and she felt she got a little lightheaded, suffered acute injury to her left ankle. She does recall exactly what happened. She had no lightheadedness. She has minimal left ankle pain this morning. Does not really want much done for it. Did not communicate well. PAST MEDICAL HISTORY: AFib, hypertension, asthma, anxiety, lower extremity edema, seizure disorder, history of cellulitis. PAST SURGICAL HISTORY: Includes spine, cholecystectomy, hysterectomy, neck surgery. PHYSICAL EXAMINATION: She is alert, oriented, minimal complaints of left ankle pain. No other extremity difficulties. Denies fevers, sweats, chills. She has some pain about the left ankle, mild swelling about the left ankle. She also has edema and swelling about the right ankle. There is no gross deformity. X-rays demonstrated a very mild fracture of the left distal fibula. I probably would have missed it on plain film but it is a distal left fibular fracture. IMPRESSION: Distal left fibula fracture along with hypertension, atrial fibrillation, anemia, asthma, anxiety, and seizure disorder. DISPOSITION: The boot is appropriate for ambulation and that has been ordered and she has one. She did not want to wear it, but she nevertheless is by her bedside. She can be up and ambulatory with the walker with wheels and she can be discharged home anytime. Follow up in the office.
[2017-12-18] MEDS ORDERED: FERROUS SULFATE 325 MG TAB PO SCH ×2 (08:30)
[2017-12-18] MEDS ORDERED: MULTIVITAMIN TAB PO SCH (09:00)
[2017-12-18] MEDS ORDERED: METOPROLOL TARTRATE 25 MG TAB PO SCH (09:00)
[2017-12-18] MEDS ORDERED: FUROSEMIDE 20 MG TAB PO SCH (09:00)
[2017-12-18] MEDS: PANTOprazole SOD 40 MG TAB PO SCH (09:00)
[2017-12-18] MEDS ORDERED: FLUTICASONE PROPIONATE NA SPR 16 GM BTL NAE SCH (09:00)
[2017-12-18] MEDS ORDERED: SULFAMETHOXAZOLE/TRIMETHOPRIM DS 800/160MG TAB PO SCH (09:00)
[2017-12-18] MEDS: DOCUSATE SODIUM 100 MG CAP PO SCH (09:00)
[2017-12-18] MEDS: LORAZEPAM 0.5 MG TAB PO SCH (09:00)
[2017-12-18] MEDS: LEVETIRACETAM 500 MG TAB PO SCH (09:12)
[2017-12-18] MEDS: APIXABAN 2.5 MG TAB PO SCH (09:12)
[2017-12-18] MEDS: MAGNESIUM OXIDE 400 MG TAB PO SCH (09:13)
[2017-12-18] MEDS: METOCLOPRAMIDE HCL 5 MG TAB PO SCH (09:14)
[2017-12-18 09:19] VITALS: BP 138/87; PULSE 83
--- NOTE | 2017-12-18 12:31 | Discharge Summary ---
Discharge Summary Date of Service Dec 18, 2017. Discharge Summary Admission Date: Dec 17, 2017 at 16:34 Discharge Date: Dec 18, 2017 Discharge Disposition: Home Principal Diagnosis: Distal left fibula fracture along with hypertension, atrial Immunizations: Have You Had Influenza Vaccine: Yes Influenza Vaccine Date: Sep 10, 2011 History of Tetanus Vaccine?: Yes Tetanus Immunization Date: Mar 07, 1997 History of Pneumococcal: Yes Pneumococcal Date: Sep 09, 2011 History of Hepatitis B Vaccine: No Hepatitis Immunization Date: Jul 01, 2006 Medication Reconciliation Continued Medications: Albuterol Hfa (Ventolin Hfa) 200 Puffs/01296 Mcg Aers 2 PUFFS PO QID PRN for SOB/Wheezing for 30 Days, #1 INHALER 1 Refill Apixaban (Eliquis) 5 Mg Tab 5 MG PO BID for 30 Days, #60 TAB 1 Refill Docusate Sodium (Colace) 100 Mg Cap 100 MG PO BID for 30 Days, #60 CAP 0 Refills Estradiol Vaginal (Estrace) 0.1 Mg/Gm Cre 0.25 APPL PV UD insert 1/4 applicator vaginally 2-3 times per week. apply thin layer externally on same evening Ferrous Sulfate (Kp Ferrous Sulfate) 325 Mg Tab 325 TAB PO BIDM for 30 Days, #30 TAB 1 Refill Fluticasone Propionate (Nasal) (Flonase Allergy Relief) 50 Mcg/Act Spr 2 SPRAY MORIS QAM for 30 Days, #1 SPRAY 0 Refills Furosemide (Lasix) 20 Mg Tab 20 MG PO QAM for 30 Days, #30 TAB 0 Refills Ipratropium Stollings (Nasal) (Ipratropium Stollings) 0.03 % Spr 2 SPRAYS MORIS TID for 30 Days, #1 SPRAY 1 Refill Lamotrigine (Lamictal) 100 Mg Tab 100 MG PO BID for 30 Days, #60 TAB 1 Refill take with 200mg Lamotrigine (Lamictal) 200 Mg Tab 200 MG PO BID for 30 Days, #60 TAB 1 Refill take with 100mg Levetiractam (Levetiracetam) 500 Mg Tab 500 MG PO BID for 30 Days, #60 TAB 1 Refill Lorazepam (Ativan) 0.5 Mg Tab 0.5 MG PO BID for 30 Days, #60 TAB 0 Refills Magnesium Oxide (Mag-Ox) 400 Mg Tab 400 MG PO BID, TAB Meclizine HCl (Meclizine HCl) 12.5 Mg Tab 1 TAB PO TID for 30 Days, #90 TAB 3 Refills called pharmacy, patient did not tile picker yet. Metoclopramide Hcl (Metoclopramide Hcl) 5 Mg Tab 5 MG PO BID for 30 Days, #60 TAB 0 Refills Metoprolol Tartrate (Lopressor) 25 Mg Tab 25 MG PO DAILY Multivitamin (Multivitamin) Tab 1 TAB PO DAILY, TAB Pantoprazole Sodium (Protonix) 40 Mg Tab 40 MG PO BID for 30 Days, #60 TAB 0 Refills Potassium Chloride Microencaps (Potassium Chloride Er) 20 Meq Tab 20 MEQ PO QAM for 30 Days, #30 TAB 1 Refill Sulfa/Trimethoprim (Bactrim Ds 800MG/160MG) Tab 1 TAB PO DAILY for 30 Days, #30 TAB 1 Refill CHRONIC Discharge Exam Physical Examination General Appearance: no apparent distress, + obese Head: normocephalic, atraumatic Eyes: normal inspection, PERRL ENT: hearing grossly normal Neck: supple Respiratory/Chest: lungs clear, no respiratory distress, no accessory muscle use Cardiovascular: + systolic murmur, + irregularly irregular (rate controlled ) Abdomen/GI: normal bowel sounds, non tender, soft Back: normal inspection Extremities/Musculoskelatal: no calf tenderness, no pedal edema, + pertinent finding (LLE in walking boot ) Neurologic/Psych: alert, normal mood/affect, oriented x 3 Skin: normal color, warm/dry, no rash Review of Systems: Constitutional: No fever, No chills Eyes: No worsening of vision ENT: No hearing loss Respiratory: No cough, No sputum Cardiovascular: No chest pain Abdomen: No pain, No nausea Musculoskeletal: + joint pain Neurologic: No memory loss Endocrine: No fatigue, No excessive thirst Integumentary: No rash Hospital Course Left AMA Discussed care options. Patient refused. Spent 32 minutes with patient discussing risks and benefits of leaving and not following advice by me and ortho. Patient still wanted to leave AMA, and was able to repeat the risks of not wearing boot and also not going to rehab. Total Time Spent: Greater than 30 minutes This includes examination of the patient, discharge planning, medication reconciliation, and communication with other providers. Discharge Instructions Please refer to the electronic Patient Visit Report (Discharge Instructions) for additional information. Additional Copies To Marcelo Escoto M.D.
--- NOTE | 2017-12-18 12:33 | Discharge Instructions ---
Discharge Instructions Date of Service Dec 18, 2017. Admission Reason for Admission: Lateral Malleolar Fracture Discharge Discharge Diagnosis / Problem: Lateral Malleolar fracture Discharge Goals Goal(s): Decrease discomfort, Improve function Activity Recommendations Activity Limitations: as noted below Lifting Limitations: gradually increase as tolerated . Instructions / Follow-Up Instructions / Follow-Up Distal left fibula fracture along with hypertension, atrial fibrillation, anemia, asthma, anxiety, and seizure disorder. DISPOSITION: The boot is appropriate for ambulation and that has been ordered and she has one. She did not want to wear it, but she nevertheless is by her bedside. She can be up and ambulatory with the walker with wheels Follow up with Ortho in the office. Followup with PCP in 1 week Current Hospital Diet Patient's current hospital diet: AHA Diet (Heart Healthy) Discharge Diet Recommended Diet: AHA Diet (Heart Healthy) Pending Studies Studies pending at discharge: no Medical Emergencies . Who to Call and When: Medical Emergencies: If at any time you feel your situation is an emergency, please call 911 immediately. . Non-Emergent Contact Non-Emergency issues call your: Primary Care Provider Call Non-Emergent contact if: your pain is worsening . . "Provider Documentation" section prepared by Antonio Rawls. . VTE Core Measure Inpt VTE Proph given/why not?: Other Anticoagulation
[2017-12-18 12:38] VITALS: BP 119/55; PULSE 72; O2SAT 96
[2017-12-18 12:44] VITALS: BP 138/87; PULSE 83; TEMP 37.4; O2SAT 95
== END 2017-12-18 14:20 | disposition left against medical advice (07) ==
LOC: EDBD 12:52 → C.EDC 12:52 → C.MSW 16:34 → ENRESERV 16:45
PROVIDERS: ADMIT Internal Medicine; ATTEND Internal Medicine
DX: S82.62XA Displaced fracture of lateral malleolus of left fibula, initial encounter for closed fracture (principal); W19.XXXA Unspecified fall, initial encounter; I48.2 Chronic atrial fibrillation; F41.9 Anxiety disorder, unspecified; E87.5 Hyperkalemia; D50.0 Iron deficiency anemia secondary to blood loss (chronic); I10 Essential (primary) hypertension; J45.909 Unspecified asthma, uncomplicated; K21.9 Gastro-esophageal reflux disease without esophagitis; E78.5 Hyperlipidemia, unspecified; G40.909 Epilepsy, unspecified, not intractable, without status epilepticus; M10.9 Gout, unspecified; Z79.01 Long term (current) use of anticoagulants; Z79.899 Other long term (current) drug therapy

== ENCOUNTER 2017-12-24 12:00 | Emergency (ER) | payer OTHER ==
[~2017-12-24] VITALS: Ht 170.2 cm; Wt 112.5 kg
[~2017-12-24 12:00] MED LIST changes: +MECL1TAB40 PO
[2017-12-24 12:21] VITALS: TEMP 36.5; Ht 170.2 cm; Wt 112.5 kg
[2017-12-24] MEDS ORDERED: HYDROmorphone INJ 0.5 MG/0.5 ML SYR IV STA ×2 (12:43→17:01)
[2017-12-24] MEDS ORDERED: ONDANSETRON INJ 2 MG/ML 2 ML VIAL IV STA (12:43)
[2017-12-24] MEDS ORDERED: CEFTRIAXONE SOD INJ 1 GM ADDVIAL IV STA (12:44)
[2017-12-24] MEDS ORDERED: SULFAMETHOXAZOLE/TRIMETHOPRIM DS 800/160MG TAB PO STA (12:44)
--- NOTE | 2017-12-24 12:48 | EMERGENCY ROOM VISIT NOTE ---
History Report prepared by Chiara: Reggie Hernandez Under the Supervision of: Dr. Vitaly Mckeon M.D. First contact with patient: 12:35 Chief Complaint: ANKLE PAIN Stated Complaint: EDEMA History of Present Illness The patient is a 67 year old female who presents to the Emergency Room after a referral from her primary care physician with complaints of constant pain in her left ankle/foot. The patient states that she started to take a new medication last week that caused her to feel dizzy and as though the room was spinning. When she stood up on this medication she fell to the ground and fractured her left foot. The pain from this fracture is still present. She was placed in a boot for the foot, and was then instructed by physical therapy to take the boot off as it made it hard for her to walk with the chronic pain in her left knee. Her primary care physician sent her into the Emergency Department today with concern of a deep vein thrombosis in the left lower extremity. She is on Eliquis daily. Source of History: patient Onset: Last week Position: ankle (left, left foot) Quality: other (Foot fracture) Timing: constant Note: Dizziness Review of Systems See HPI for pertinent positives & negatives. A total of 10 systems reviewed and were otherwise negative. 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 (16) Fall (17) Fracture of rib with routine healing (18) Gastroesophageal reflux disease (19) Gout (20) Hernia (21) Hip pain (22) History of recent fall (23) Hyperlipidemia (24) Migraine (25) Neck pain (26) Rectal bleeding (27) renal insufficiency (28) Rib fractures (29) Seizure (30) Spinal stenosis (31) Sprain of knee (32) Status post fall (33) Unexplained night sweats Surgical Problems: (1) back surgery (2) Cholecystectomy (3) History of appendectomy (4) History of arthroplasty of left knee (5) Hysterectomy (6) neck surgery (7) Status post total left knee replacement Family History Cancer FHx: neurologic disorder Heart disease Hypertension Kidney disease Other kidney diseases Seizures Social History Smoking Status: Never Smoker Alcohol Use: none Drug Use: none Marital Status: single Housing Status: lives alone Occupation Status: retired Current/Historical Medications Scheduled Apixaban (Eliquis), 5 MG PO BID Cephalexin Monohydrate (Keflex), 500 MG PO QID Docusate Sodium (Colace), 100 MG PO BID Docusate Sodium (Colace), 1 CAP PO BID Estradiol Vaginal (Estrace), 0.25 APPL PV UD Ferrous Sulfate (Kp Ferrous Sulfate), 325 TAB PO BIDM Fluticasone Propionate (Nasal) (Flonase Allergy Relief), 2 SPRAY MORIS QAM Furosemide (Lasix), 20 MG PO QAM Ipratropium [place] (Nasal) (Ipratropium [place]), 2 SPRAYS MORIS TID Lamotrigine (Lamictal), 100 MG PO BID Lamotrigine (Lamictal), 200 MG PO BID Levetiractam (Levetiracetam), 500 MG PO BID Lorazepam (Ativan), 0.5 MG PO BID Magnesium Oxide (Mag-Ox), 400 MG PO BID Meclizine HCl (Meclizine HCl), 1 TAB PO TID Metoclopramide Hcl (Metoclopramide Hcl), 5 MG PO BID Metoprolol Tartrate (Lopressor), 25 MG PO DAILY Multivitamin (Multivitamin), 1 TAB PO DAILY Pantoprazole Sodium (Protonix), 40 MG PO BID Potassium Chloride Microencaps (Potassium Chloride Er), 20 MEQ PO QAM Sennosides (Senokot), 8.6 MG PO HS Sulfa/Trimethoprim (Bactrim Ds 800MG/160MG), 1 TAB PO BID Scheduled PRN Albuterol Hfa (Ventolin Hfa), 2 PUFFS PO QID PRN for SOB/Wheezing Oxycodone Immediate Rel Tab (Roxicodone Ir), 1-2 TAB PO Q4H PRN for Severe Pain Allergies Coded Allergies: Adhesives (Verified Adverse Reaction, Unknown, ITCHY, 12/24/17) Physical Exam Vital Signs Date Time Temp Pulse Resp B/P (MAP) Pulse Ox O2 Delivery O2 Flow Rate FiO2 12/24/17 17:19 75 18 131/75 99 12/24/17 15:31 62 18 145/86 100 Room Air 12/24/17 15:23 91 Room Air 12/24/17 14:05 76 12/24/17 13:40 78 22 92/43 98 Room Air 80 147/76 12/24/17 12:21 36.5 94 22 155/94 93 Room Air Physical Exam GENERAL: Patient is a healthy-appearing well-nourished female HEAD: Normocephalic atraumatic EYES: Ocular movements intact pupils equal and react to light OROPHARYNX mucous membranes are moist no exudates present no erythema or edema present NECK: Supple no nuchal rigidity CHEST: Good equal expansion LUNGS: Clear and equal to auscultation CARDIAC: Normal S1 and S2 ABDOMEN: Obese. Soft nontender no guarding BACK: No CVA tenderness EXTREMITIES: No pain upon palpation normal muscle strength in all groups no clubbing cyanosis or edema SKIN: There is a 6x6 inch reddened area to the left ankle. NEURO: Patient is following commands and answering questions appropriately. Alert and oriented x3 Cranial Nerves 2-12 grossly intact Medical Decision & Procedures ER Provider Diagnostic Interpretation: Radiology results as stated below per my review and radiologist interpretation: LEFT ANKLE 3 VIEWS; LEFT TIBIA AND FIBULA 2 VIEWS CLINICAL HISTORY: Left ankle pain. Edema. FINDINGS: 3 portable views of the left ankle with AP and lateral portable views of the left tibia and fibula are compared to study ankle radiographs 12/17/2017. The skeletal structures are osteopenic. Again seen is a nondistracted spiral fracture of the distal fibula. A tiny avulsion fracture is questioned along the anterior tibial plafond. The ankle mortise appears intact. The proximal tibia and fibula are maintained. A left knee arthroplasty is partially visualized. Diffuse soft tissue edema is present throughout the left lower extremity. An ankle joint effusion is noted. There is a tiny plantar calcaneal enthesophyte, with calcification seen along the course of the plantar fascia. Degenerative spurring is noted along the dorsal aspect of the tarsal bones. IMPRESSION: 1. A nondistracted spiral fracture of the distal fibula is unchanged. 2. Question a tiny avulsion fracture along the anterior tibial plafond. 3. The proximal tibia and fibula are intact. 4. Soft tissue edema is present throughout the visualized left lower extremity. Electronically signed by: Xu Tyler M.D. 12/24/2017 2:00 PM Dictated Date/Time: 12/24/2017 1:57 PM LEFT ANKLE 3 VIEWS; LEFT TIBIA AND FIBULA 2 VIEWS CLINICAL HISTORY: Left ankle pain. Edema. FINDINGS: 3 portable views of the left ankle with AP and lateral portable views of the left tibia and fibula are compared to study ankle radiographs 12/17/2017. The skeletal structures are osteopenic. Again seen is a nondistracted spiral fracture of the distal fibula. A tiny avulsion fracture is questioned along the anterior tibial plafond. The ankle mortise appears intact. The proximal tibia and fibula are maintained. A left knee arthroplasty is partially visualized. Diffuse soft tissue edema is present throughout the left lower extremity. An ankle joint effusion is noted. There is a tiny plantar calcaneal enthesophyte, with calcification seen along the course of the plantar fascia. Degenerative spurring is noted along the dorsal aspect of the tarsal bones. IMPRESSION: 1. A nondistracted spiral fracture of the distal fibula is unchanged. 2. Question a tiny avulsion fracture along the anterior tibial plafond. 3. The proximal tibia and fibula are intact. 4. Soft tissue edema is present throughout the visualized left lower extremity. Electronically signed by: Xu Tyler M.D. 12/24/2017 2:00 PM Dictated Date/Time: 12/24/2017 1:57 PM L VENOUS DOPP LOWER EXT UNILAT HISTORY: 67 years-old Female Pt c/o left ankle pain acute left ankle pain COMPARISON: Duplex venous Doppler study of the left lower extremity 10/29/2017 TECHNIQUE: Multiple real-time sonography images of the left lower extremity deep venous structures were obtained assessing grayscale appearance, color and spectral flow FINDINGS: Study is limited secondary to patient body habitus. There is normal compressibility, flow, phasicity and augmentation of the left lower extremity deep venous structures. IMPRESSION: No sonographic evidence of deep venous thrombosis. The above report was generated using voice recognition software. It may contain grammatical, syntax or spelling errors. Electronically signed by: Shane Paulino M.D. 12/24/2017 4:00 PM Dictated Date/Time: 12/24/2017 3:59 PM Laboratory Results 12/24/17 14:09 Red Blood Count 3.79, Mean Corpuscular Volume 89.2, Mean Corpuscular Hemoglobin 29.6, Mean Corpuscular Hemoglobin Concent 33.1, Mean Platelet Volume 10.9, Neutrophils (%) (Auto) 65.5, Lymphocytes (%) (Auto) 22.3, Monocytes (%) (Auto) 7.9, Eosinophils (%) (Auto) 3.4, Basophils (%) (Auto) 0.7, Neutrophils # (Auto) 3.50, Lymphocytes # (Auto) 1.19, Monocytes # (Auto) 0.42, Eosinophils # (Auto) 0.18, Basophils # (Auto) 0.04 12/24/17 14:09 Test 12/24/17 13:14 12/24/17 14:09 12/24/17 15:19 Bedside Glucose 91 mg/dl (70-90) White Blood Count 5.34 K/uL (4.8-10.8) Red Blood Count 3.79 M/uL (4.2-5.4) Hemoglobin 11.2 g/dL (12.0-16.0) Hematocrit 33.8 % (37-47) Mean Corpuscular Volume 89.2 fL (80-100) Mean Corpuscular Hemoglobin 29.6 pg (25-34) Mean Corpuscular Hemoglobin Concent 33.1 g/dl (32-36) Platelet Count 203 K/uL (130-400) Mean Platelet Volume 10.9 fL (7.4-10.4) Neutrophils (%) (Auto) 65.5 % Lymphocytes (%) (Auto) 22.3 % Monocytes (%) (Auto) 7.9 % Eosinophils (%) (Auto) 3.4 % Basophils (%) (Auto) 0.7 % Neutrophils # (Auto) 3.50 K/uL (1.4-6.5) Lymphocytes # (Auto) 1.19 K/uL (1.2-3.4) Monocytes # (Auto) 0.42 K/uL (0.11-0.59) Eosinophils # (Auto) 0.18 K/uL (0-0.5) Basophils # (Auto) 0.04 K/uL (0-0.2) RDW Standard Deviation 45.3 fL (36.4-46.3) RDW Coefficient of Variation 13.8 % (11.5-14.5) Immature Granulocyte % (Auto) 0.2 % Immature Granulocyte # (Auto) 0.01 K/uL (0.00-0.02) Anion Gap 6.0 mmol/L (3-11) Est Creatinine Clear Calc Drug Dose 74.9 ml/min Estimated GFR () 73.2 Estimated GFR (Non- 63.1 BUN/Creatinine Ratio 12.9 (10-20) Calcium Level 9.1 mg/dl (8.5-10.1) Total Bilirubin 0.5 mg/dl (0.2-1) Direct Bilirubin 0.2 mg/dl (0-0.2) Aspartate Amino Transf (AST/SGOT) 10 U/L (15-37) Alanine Aminotransferase (ALT/SGPT) 12 U/L (12-78) Alkaline Phosphatase 108 U/L (45-117) Total Protein 7.2 gm/dl (6.4-8.2) Albumin 3.5 gm/dl (3.4-5.0) Thyroid Stimulating Hormone (TSH) 0.643 uIu/ml (0.300-4.500) Urine Color YELLOW Urine Appearance CLEAR (CLEAR) Urine pH 7.0 (4.5-7.5) Urine Specific [place] 1.010 (1.000-1.030) Urine Protein NEG (NEG) Urine Glucose (UA) NEG (NEG) Urine Ketones NEG (NEG) Urine Occult Blood NEG (NEG) Urine Nitrite NEG (NEG) Urine Bilirubin NEG (NEG) Urine Urobilinogen NEG (NEG) Urine Leukocyte Esterase TRACE (NEG) Urine WBC (Auto) 1-5 /hpf (0-5) Urine RBC (Auto) 0-4 /hpf (0-4) Urine Hyaline Casts (Auto) 0 /lpf (0-5) Urine Epithelial Cells (Auto) 5-10 /lpf (0-5) Urine Bacteria (Auto) NEG (NEG) Labs reviewed by ED physician. Medications Administered Medications (Trade) Dose Ordered Sig/Galileo Route Start Time Stop Time Status Last Admin Dose Admin Hydromorphone HCl (Dilaudid Inj) 0.5 mg NOW STAT IV 12/24/17 12:43 12/24/17 12:45 DC 12/24/17 13:49 0.5 MG Ondansetron HCl (Zofran Inj) 4 mg NOW STAT IV 12/24/17 12:43 12/24/17 12:45 DC 12/24/17 13:49 4 MG Ceftriaxone Sodium (Rocephin Inj) 1 gm NOW STAT IV 12/24/17 12:44 12/24/17 12:46 DC 12/24/17 13:49 1 GM Trimethoprim/ Sulfamethoxazole (Septra Ds 800/ 160MG Tab) 1 tab NOW STAT PO 12/24/17 12:44 12/24/17 12:46 DC 12/24/17 13:49 1 TAB Hydromorphone HCl (Dilaudid Inj) 0.5 mg NOW STAT IV 12/24/17 17:01 12/24/17 17:02 DC 12/24/17 17:09 0.5 MG ECG Indication: other (Dizziness) Rate (beats per minute): 80 Rhythm: atrial fibrillation Findings: no acute ischemic change, no ectopy Comparison ECG Date: 12/17/2017 Change: no significant change Change: Patient's electrocardiogram per my interpretation. ED Course 1238: Past medical records reviewed. The patient was evaluated in room A11. A complete history and physical examination was performed. 1243: Ordered Zofran 4 mg IV, Dilaudid 0.5 mg IV. 1244: Ordered Trimethoprim/Sulfamethoxazole 1 tablet PO, Rocephin 1 gm IV. 1611: Upon reexamination the patient is laying in bed. I discussed results and treatment plan with the patient and discussed the option of going to [facility] for [facility]. All she wants is a lower boot for her foot/ankle. She verbalizes agreement and understanding. The patient is ready for discharge. Medical Decision Differential diagnosis: Etiologies such as fracture, dislocation, neurovascular compromise, compartment syndrome, soft tissue injury, as well as others were entertained. This is a 67-year-old female who presents emergency department complaining of left ankle pain. The patient is wearing a walking boot at home however has not been wearing it because she finds who uncomfortable. She is requesting a lower cut boot. I highly recommended upon first patient that she go to rehabilitation Hospital because I'm concerned she is not handling the fracture well. The patient refuses this. She was sent for x-rays which confirmed the old fractures. The patient does not have an elevation in her white blood count cell count however I did start her on antibiotics encases was an early cellulitis area she does not have any history of a DVT and in addition the patient is early on Eliquis. I again strongly recommended to the patient should be admitted to rehabilitation Hospital she however is adamantly refusing. I am going to put the patient on antibiotics strongly recommended oxycodone. She was given Dilaudid 2 here in the emergency department. Repeat examination revealed much improvement the patient's symptoms. Impression Primary Impression: Ankle fracture, left Additional Impression: Cellulitis Scribe Attestation The scribe's documentation has been prepared under my direction and personally reviewed by me in its entirety. I confirm that the note above accurately reflects all work, treatment, procedures, and medical decision making performed by me. Departure Information Dispostion Home / Self-Care Prescriptions Docusate Sodium (COLACE) 100 Mg Cap 1 CAP PO BID for 30 Days, #60 CAP Prov: Vitaly Mckeon MD 12/24/17 Sennosides (SENOKOT) 8.6 Mg Tab 8.6 MG PO HS for 30 Days, #30 TAB Prov: Vitaly Mckeon MD 12/24/17 Oxycodone Immediate Rel Tab (ROXICODONE IR) 5 Mg Tab 1-2 TAB PO Q4H Y for Severe Pain, #14 TAB Prov: Vitaly Mckeon MD 12/24/17 Sulfa/Trimethoprim (Bactrim Ds 800MG/160MG) Tab 1 TAB PO BID for 10 Days, #20 TAB Prov: Vitaly Mckeon MD 12/24/17 Cephalexin Monohydrate (KEFLEX) 500 Mg Cap 500 MG PO QID for 10 Days, #40 CAP Prov: Vitaly Mckeon MD 12/24/17 Referrals Marcelo Escoto M.D. (PCP) Forms HOME CARE DOCUMENTATION FORM, IMPORTANT VISIT INFORMATION Patient Instructions My [facility] Additional Instructions Need follow up with Ortho You have been examined and treated today on an emergency basis only. This is not a substitute for, or an effort to provide, complete comprehensive medical care. It is impossible to recognize and treat all injuries or illnesses in a single emergency department visit. It is therefore important that you follow up closely with Dr Escoto. Call as soon as possible for an appointment. Thank you for your time and consideration. I look forward to speaking with you again soon. Please don't hesitate to call us if you have any questions. Problem Qualifiers Primary Impression: Ankle fracture, left Encounter type: initial encounter Fracture type: closed Qualified Codes: S82.892A - Other fracture of left lower leg, initial encounter for closed fracture Additional Impression: Cellulitis Site of cellulitis: extremity Site of cellulitis of extremity: lower extremity Laterality: unspecified laterality Qualified Codes: L03.119 - Cellulitis of unspecified part of limb
--- NOTE | 2017-12-24 14:01 | DIAGNOSTIC IMAGING REPORT ---
LEFT ANKLE 3 VIEWS; LEFT TIBIA AND FIBULA 2 VIEWS CLINICAL HISTORY: Left ankle pain. Edema. FINDINGS: 3 portable views of the left ankle with AP and lateral portable views of the left tibia and fibula are compared to study ankle radiographs 12/17/2017. The skeletal structures are osteopenic. Again seen is a nondistracted spiral fracture of the distal fibula. A tiny avulsion fracture is questioned along the anterior tibial plafond. The ankle mortise appears intact. The proximal tibia and fibula are maintained. A left knee arthroplasty is partially visualized. Diffuse soft tissue edema is present throughout the left lower extremity. An ankle joint effusion is noted. There is a tiny plantar calcaneal enthesophyte, with calcification seen along the course of the plantar fascia. Degenerative spurring is noted along the dorsal aspect of the tarsal bones. IMPRESSION: 1. A nondistracted spiral fracture of the distal fibula is unchanged. 2. Question a tiny avulsion fracture along the anterior tibial plafond. 3. The proximal tibia and fibula are intact. 4. Soft tissue edema is present throughout the visualized left lower extremity. Electronically signed by: Xu Tyler M.D. 12/24/2017 2:00 PM Dictated Date/Time: 12/24/2017 1:57 PM
[2017-12-24 14:19] LABS: BASO % 0.7 %; BASO ABS # 0.04 K/uL (0-0.2); EOS % 3.4 %; EOS ABS # 0.18 K/uL (0-0.5); HEMATOCRIT 33.8 % (37-47); HEMOGLOBIN 11.2 g/dL (12.0-16.0); IG# 0.01 K/uL (0.00-0.02); LYMPH % 22.3 %; LYMPH ABS # 1.19 K/uL (1.2-3.4); MEAN CELL VOLUME 89.2 fL (80-100); MEAN CORPUSCULAR HEMOGLOBIN 29.6 pg (25-34); MEAN CORPUSCULAR HGB CONC 33.1 g/dl (32-36); MEAN PLATELET VOLUME 10.9 fL (7.4-10.4); MONO % 7.9 %; MONO ABS # 0.42 K/uL (0.11-0.59); NEUT % 65.5 %; PLATELET COUNT 203 K/uL (130-400); RED CELL DISTRIBUTION WIDTH CV 13.8 % (11.5-14.5); RED CELL DISTRIBUTION WIDTH SD 45.3 fL (36.4-46.3); WHITE BLOOD COUNT 5.34 K/uL (4.8-10.8)
[2017-12-24 14:39] LABS: ALBUMIN 3.5 gm/dl (3.4-5.0); CALCIUM 9.1 mg/dl (8.5-10.1); CREATININE 0.93 mg/dl (0.60-1.20)
[2017-12-24 14:51] LABS: TOTAL PROTEIN 7.2 gm/dl (6.4-8.2)
[2017-12-24 15:23] VITALS: O2SAT 91
--- NOTE | 2017-12-24 16:02 | DIAGNOSTIC IMAGING REPORT ---
L VENOUS DOPP LOWER EXT UNILAT HISTORY: 67 years-old Female Pt c/o left ankle pain acute left ankle pain COMPARISON: Duplex venous Doppler study of the left lower extremity 10/29/2017 TECHNIQUE: Multiple real-time sonography images of the left lower extremity deep venous structures were obtained assessing grayscale appearance, color and spectral flow FINDINGS: Study is limited secondary to patient body habitus. There is normal compressibility, flow, phasicity and augmentation of the left lower extremity deep venous structures. IMPRESSION: No sonographic evidence of deep venous thrombosis. The above report was generated using voice recognition software. It may contain grammatical, syntax or spelling errors. Electronically signed by: Shane Paulino M.D. 12/24/2017 4:00 PM Dictated Date/Time: 12/24/2017 3:59 PM
[2017-12-24] MEDS ORDERED: SULF800T23 PO (16:23)
[2017-12-24] MEDS ORDERED: CEPH500C2 PO (16:23)
[2017-12-24] MEDS ORDERED: OXYC1TAB3 PO (17:04)
[2017-12-24] MEDS ORDERED: DOCU-94 PO (17:04)
[2017-12-24] MEDS ORDERED: SENN1TAB77 PO (17:04)
[2017-12-24 17:19] VITALS: BP 131/75; PULSE 75; O2SAT 99
== END 2017-12-24 17:21 | disposition home or self-care (01) ==
LOC: EDBD 12:00 → C.EDA 12:01
DX: S82.892A Other fracture of left lower leg, initial encounter for closed fracture (principal); L03.119 Cellulitis of unspecified part of limb; W19.XXXA Unspecified fall, initial encounter; J45.909 Unspecified asthma, uncomplicated; I10 Essential (primary) hypertension; K21.9 Gastro-esophageal reflux disease without esophagitis; Z91.81 History of falling; Z90.49 Acquired absence of other specified parts of digestive tract; Z90.89 Acquired absence of other organs; Z98.890 Other specified postprocedural states; Z90.710 Acquired absence of both cervix and uterus; Z96.652 Presence of left artificial knee joint; Z82.49 Family history of ischemic heart disease and other diseases of the circulatory system; Z82.0 Family history of epilepsy and other diseases of the nervous system; Z79.01 Long term (current) use of anticoagulants; Z79.899 Other long term (current) drug therapy

== ENCOUNTER → 2018-02-21 | Outpatient (CLI) | payer OTHER ==
[~2018-02-21] MED LIST changes: +MAGN400T5 PO; +OXYC1TAB3 PO; -SULF800T23 PO
== END | disposition home or self-care (01) ==
LOC: C.RDSM 11:46
PROVIDERS: ATTEND Orthopaedic Surgery Sports Medicine
DX: Z09 Encounter for follow-up examination after completed treatment for conditions other than malignant neoplasm (principal)

== ENCOUNTER 2018-02-28 03:26 | Emergency (ER) | payer OTHER ==
[~2018-02-28] VITALS: Ht 170.2 cm; Wt 119.4 kg
[~2018-02-28 03:26] MED LIST changes: -MAGN400T5 PO
[2018-02-28 03:36] VITALS: TEMP 36.3; Ht 170.2 cm; Wt 119.4 kg
--- NOTE | 2018-02-28 03:58 | EMERGENCY ROOM VISIT NOTE ---
History First contact with patient: 03:44 Chief Complaint: SWELLING TO EXTREMITY Stated Complaint: SWELLING OF LEGS History of Present Illness The patient is a 68 year old female who presents to the Emergency Room for evaluation of leg swelling. Patient with long history of edema issues and notes over last few days worsening swelling bilateral lower legs. No change in Lasix. She is unsure if she has been eating more salt. Noted some SOB with exertion this evening thus came to ED. She does note that there seems to be increased pain in her legs, but admits that she forgot to take any pain medications recently. Denies cp, abdominal pain/swelling, back pain/swelling, rashes, fevers, nuasea, vomiting, passing out, weakness, headache, neck pain, nor other symptoms. She notes that exertion makes worse, at rest no discomfort. No medications prior to arrival. Is currently on Lasix 20mg daily. She takes Eliquis already with multiple recent US legs without DVT following surgery for left fibular fracture. Patient notes she is still able to walk with her walker at her baseline. Notes about 10 lb weight gain over the last month. She denies having seen her PCP for this recently. Review of Systems See HPI for pertinent positives & negatives. A total of 10 systems reviewed and were otherwise negative. 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 (16) Fall (17) Fracture of rib with routine healing (18) Gastroesophageal reflux disease (19) Gout (20) Hernia (21) Hip pain (22) History of recent fall (23) Hyperlipidemia (24) Migraine (25) Neck pain (26) Rectal bleeding (27) renal insufficiency (28) Rib fractures (29) Seizure (30) Spinal stenosis (31) Sprain of knee (32) Status post fall (33) Unexplained night sweats Surgical Problems: (1) back surgery (2) Cholecystectomy (3) History of appendectomy (4) History of arthroplasty of left knee (5) Hysterectomy (6) neck surgery (7) Status post total left knee replacement Family History Cancer FHx: neurologic disorder Heart disease Hypertension Kidney disease Other kidney diseases Seizures Social History Smoking Status: Never Smoker Alcohol Use: none Drug Use: none Marital Status: single Housing Status: lives alone Occupation Status: retired Current/Historical Medications Scheduled Apixaban (Eliquis), 5 MG PO BID Docusate Sodium (Colace), 100 MG PO BID Estradiol Vaginal (Estrace), 0.25 APPL PV UD Ferrous Sulfate (Kp Ferrous Sulfate), 325 TAB PO BIDM Fluticasone Propionate (Nasal) (Flonase Allergy Relief), 2 SPRAY MORIS QAM Furosemide (Lasix), 20 MG PO QAM Ipratropium [place] (Nasal) (Ipratropium [place]), 2 SPRAYS MORIS TID Lamotrigine (Lamictal), 100 MG PO BID Lamotrigine (Lamictal), 200 MG PO BID Levetiractam (Levetiracetam), 500 MG PO BID Lorazepam (Ativan), 0.5 MG PO BID Magnesium Oxide (Mag-Ox), 400 MG PO BID Magnesium Oxide (Mag-Ox), 400 MG PO BID Meclizine HCl (Meclizine HCl), 1 TAB PO TID Metoclopramide Hcl (Metoclopramide Hcl), 5 MG PO BID Metoprolol Tartrate (Lopressor), 25 MG PO DAILY Multivitamin (Multivitamin), 1 TAB PO DAILY Pantoprazole Sodium (Protonix), 40 MG PO BID Potassium Chloride Microencaps (Potassium Chloride Er), 20 MEQ PO QAM Scheduled PRN Albuterol Hfa (Ventolin Hfa), 2 PUFFS PO QID PRN for SOB/Wheezing Physical Exam Vital Signs Date Time Temp Pulse Resp B/P (MAP) Pulse Ox O2 Delivery O2 Flow Rate FiO2 02/28/18 04:42 103 18 123/73 96 02/28/18 03:36 36.3 86 20 161/86 95 Room Air Physical Exam GENERAL: Patient is well appearing, mildly anxious and in no acute distress. EYES: No scleral icterus, unremarkable pupils. ENT: Mucous membranes moist, no nasal congestion. NECK: No masses appreciated, no meningismus, trachea is midline. RESPIRATORY: No dyspnea. Clear to auscultation and equal bilaterally. No wheeze , no rhonchi. CARDIOVASCULAR: Regular rate and rhythm. No murmurs, rubs, gallops appreciated. GASTROINTESTINAL: Abdomen soft, nontender, no peritonitis. Bowel sounds positive. No masses appreciated. BACK: No midline tenderness, no CVA tenderness EXTREMITIES: severe lymphedema with 4+ pitting edema bilateral legs. Minimal erythema without TTP, nor calf TTP. Cap refill and pulses intact. Neuro intact. Normal motion all extremities, no cyanosis, no edema. NEUROLOGIC: Alert and oriented, no acute motor or sensory deficits, no focal weakness, cranial nerves grossly intact. SKIN: No rash, no jaundice, no diaphoresis. Medical Decision & Procedures ER Provider Diagnostic Interpretation: X ray results are stated below per my interpretation: Chest: 1 view: No infiltrate, no effusion, mildly cardiac border. There is some mild congestive finding. Laboratory Results Medications Administered Medications (Trade) Dose Ordered Sig/Galileo Route Start Time Stop Time Status Last Admin Dose Admin Furosemide (Lasix Inj) 40 mg NOW STAT IM 02/28/18 04:31 02/28/18 04:34 DC 02/28/18 04:40 40 MG Medical Decision Differential: DVT, CHF, Arterial Occlusion, Infectious, Joint Effusion, Trauma, Lymphedema, Idiopathic, Trauma, amongst other pathologies entertained. 68 yr old female well known to me and department arrives for swelling in legs. She is not hypoxic and in minimal distress. She is complaiing of pain from swelling though no evidence of compartment syndrome nor vascular compromise. She has had this many times before, with negative US legs and is on Eliquis already thus I do not feel it reasonable to repeat US legs at this time. There is nothing to suggest cellulitis. Clear lungs and CXR with some mild congestive findings but not pulm edema. I originally placed orderes for labs/ IV but after failed IV attempt patient is refusing further attempts. We discussed central line, IO, EJ and she declines these. She would prefer to get increased Lasix and see how she does at home as she feels she just needs to get off more fluids. She has previous normal kidney function and I feel this is reasonable. She wishes to go home. She will call PCP in AM. Given 40mg IM Lasix with plan to increase daily lasix dose to 40mg daily. Reviewed at length symptoms requiring RTED. Medication Reconcilliation Current Medication List: was personally reviewed by me Blood Pressure Screening Patient's blood pressure: Normal blood pressure Impression Primary Impression: Fluid overload Departure Information Dispostion Home / Self-Care Condition GOOD Referrals Marcelo Escoto M.D. (PCP) Patient Instructions My [facility] Additional Instructions Increase your Lasix to 40mg Daily for the next 5 days. Return if fevers, worsening shortness of breath/weakness, redness of legs, chest pain or other concerns. Follow up with your primary provider in the next 48 hours or sooner.
[2018-02-28] MEDS ORDERED: MAGN400T5 PO (04:30)
[2018-02-28] MEDS ORDERED: FUROSEMIDE 40 MG/4 ML VIAL IM STA (04:31)
[2018-02-28 04:42] VITALS: BP 123/73; PULSE 103; O2SAT 96
[2018-02-28] MEDS ORDERED: OXYCODONE IR HOME PACK PO ONE (04:45)
--- NOTE | 2018-02-28 06:56 | DIAGNOSTIC IMAGING REPORT ---
CHEST ONE VIEW PORTABLE HISTORY: 68 years-old Female Fluid overload acute fluid overload COMPARISON: Chest radiograph 10/22/2017 TECHNIQUE: Portable AP view of the chest FINDINGS: Cardiac silhouette is enlarged, unchanged. Mild pulmonary vascular congestion without overt pulmonary edema. No pneumothorax, large pleural effusion or lobar airspace consolidation. Subsegmental bibasilar opacities favor atelectasis. The bones of the chest appear grossly intact. Degenerative changes are noted about the shoulders. Probable rotator cuff calcific tendinosis of the left. Surgical clips project over the epigastric region and lower midline mediastinum. IMPRESSION: 1. Cardiomegaly with mild pulmonary vascular congestion. 2. Bibasilar opacities suggest atelectasis. The above report was generated using voice recognition software. It may contain grammatical, syntax or spelling errors. Electronically signed by: Shane Paulino M.D. 02/28/2018 6:54 AM Dictated Date/Time: 02/28/2018 6:53 AM
== END 2018-02-28 04:42 | disposition home or self-care (01) ==
LOC: C.EDB 03:26 → C.EDA 04:42
DX: E87.70 Fluid overload, unspecified (principal); I51.7 Cardiomegaly; Z79.899 Other long term (current) drug therapy; G40.909 Epilepsy, unspecified, not intractable, without status epilepticus

== ENCOUNTER 2018-03-04 19:37 | Emergency (ER) | payer OTHER ==
[~2018-03-04] VITALS: Ht 170.2 cm; Wt 128.8 kg
[~2018-03-04 19:37] MED LIST changes: +MAGN400T5 PO; -OXYC1TAB3 PO
[2018-03-04 19:40] VITALS: TEMP 36.9; Ht 170.2 cm; Wt 128.8 kg
[2018-03-04] MEDS ORDERED: MoRPHine SULFATE 4 MG/ML 1 ML CARP\\VIAL IV STA (19:52)
--- NOTE | 2018-03-04 19:54 | EMERGENCY ROOM VISIT NOTE ---
History Report prepared by Chiara: Lopez Valdivia Under the Supervision of: Dr. Antonio Sauceda M.D. First contact with patient: 19:39 Chief Complaint: SWELLING TO EXTREMITY Stated Complaint: LEG EDEMA History of Present Illness The patient is a 68 year old white female with a past medical history of asthma , HTN, DJD, GERD, HLD, seizure, renal insufficiency, appendectomy, cholecystectomy, left total knee replacement who presents to the ED with a cc of worsening swelling to her bilateral LE beginning a few months ago. Pt states she has been experiencing these symptoms for a while, and they started to get better until two days ago. Positive shakiness, receiving a flu shot, taking 40mg of Lasix, using pressure pumps, taking Eliquis. Negative chills, cough, congestion, trouble urinating, nausea, vomiting, missing a dose of medication. Review of EMR shows the patient was evaluated for similar symptoms on February 28. She was instructed to increase her Lasix to 40mg daily. Source of History: patient Onset: two days ago Position: other (bilateral LE) Quality: other (swelling) Timing: worsening Associated Symptoms: No chills, No cough, No nausea, No vomiting Note: Associated symptoms: shaking Denies: trouble urinating, congestion Review of Systems See HPI for pertinent positives and negatives. A total of ten systems were reviewed and were otherwise negative. 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 (16) Fall (17) Fracture of rib with routine healing (18) Gastroesophageal reflux disease (19) Gout (20) Hernia (21) Hip pain (22) History of recent fall (23) Hyperlipidemia (24) Migraine (25) Neck pain (26) Rectal bleeding (27) renal insufficiency (28) Rib fractures (29) Seizure (30) Spinal stenosis (31) Sprain of knee (32) Status post fall (33) Unexplained night sweats Surgical Problems: (1) back surgery (2) Cholecystectomy (3) History of appendectomy (4) History of arthroplasty of left knee (5) Hysterectomy (6) neck surgery (7) Status post total left knee replacement Family History Cancer FHx: neurologic disorder Heart disease Hypertension Kidney disease Other kidney diseases Seizures Social History Smoking Status: Never Smoker Alcohol Use: none Drug Use: none Marital Status: single Housing Status: lives alone Occupation Status: retired Current/Historical Medications Scheduled Apixaban (Eliquis), 5 MG PO DAILY Estradiol Vaginal (Estrace), 0.25 APPL PV UD Fluticasone Propionate (Nasal) (Flonase Allergy Relief), 2 SPRAYS MORIS DAILY Furosemide (Lasix), 20 MG PO DAILY Ipratropium [place] (Nasal) (Ipratropium [place]), 2 SPRAYS MORIS TID Lamotrigine (Lamictal), 300 MG PO BID Levetiractam (Levetiracetam), 500 MG PO BID Lorazepam (Ativan), 0.5 MG PO BID Magnesium Oxide (Mag-Ox), 400 MG PO BID Metoclopramide Hcl (Metoclopramide Hcl), 5 MG PO BID Metoprolol Tartrate (Lopressor) (Lopressor), 25 MG PO DAILY Multivitamin (Multivitamin), 1 TAB PO DAILY Pantoprazole (Protonix), 40 MG PO BID Potassium Chloride (Potassium Chloride ER), 20 MEQ PO DAILY [Ra Iron 65MG], 65 MG PO BIDM Scheduled PRN Albuterol Sulfate (Proair Respiclick), 2 PUFFS INH QID PRN for SOB/Wheezing Docusate Sodium (Docusate Sodium), 100 MG PO BID PRN for Constipation Ondansetron Hcl (Zofran), 4 MG SL Q6H PRN for Nausea Allergies Coded Allergies: Adhesives (Verified Adverse Reaction, Unknown, ITCHY, 02/28/18) Physical Exam Vital Signs Date Time Temp Pulse Resp B/P (MAP) Pulse Ox O2 Delivery O2 Flow Rate FiO2 03/04/18 22:00 79 20 130/92 94 Room Air 03/04/18 20:33 79 03/04/18 20:32 80 18 150/109 94 Room Air 03/04/18 19:57 Room Air 03/04/18 19:40 36.9 90 18 178/106 98 Room Air Physical Exam GENERAL: Awake, alert, well-appearing, NAD. Tremulous HENT: Normocephalic, atraumatic. EYES: Normal conjunctiva. Sclera non-icteric. NECK: Supple. No nuchal rigidity. FROM. RESPIRATORY: CTAB, no rhonchi, wheezing, crackles CARDIAC: Tachy and regular, no MRG ABDOMEN: Soft, NTND, BS+ MSK: No chest wall TTP, diffuse pitting, bilateral, LE edema, left greater than right. NVI distally. Incision scar distal to the left knee. NEURO: GCS 15, CN 2-12 intact, moves all 4s on command SKIN: No rash or jaundice noted. Medical Decision & Procedures ER Provider Diagnostic Interpretation: Radiology results as stated below per my review and radiologist interpretation: L VENOUS DOPP LOWER EXT UNILAT HISTORY: 68 years-old Female LLE swelling, h/o fibular frx acute left lower extremity pain and swelling COMPARISON: Duplex venous Doppler study 12/24/2017 TECHNIQUE: Multiple real-time sonographic images of the left lower extremity deep venous structures were obtained assessing grayscale appearance, color and spectral flow FINDINGS: Limited visualization of the venous structures secondary to soft tissue edema and patient body habitus. The calf veins are specifically not well seen. There is normal flow, compressibility, phasicity and augmentation of the left lower extremity deep venous structures. IMPRESSION: No sonographic evidence of deep venous thrombosis. The above report was generated using voice recognition software. It may contain grammatical, syntax or spelling errors. Electronically signed by: Shane Paulino M.D. 03/04/2018 9:44 PM Dictated Date/Time: 03/04/2018 9:42 PM CHEST ONE VIEW PORTABLE HISTORY: 68 years-old Female CHEST PAIN acute atypical chest pain COMPARISON: Chest radiograph 02/28/2018, CT 02/23/2017. TECHNIQUE: Portable AP view of the chest FINDINGS: Cardiac silhouette is mildly enlarged. There is mild pulmonary vascular congestion without pneumothorax. Mild blunting of left costophrenic angle suggests trace effusion. Persistent left greater the right bibasilar opacities. No pneumothorax. Degenerative changes of the shoulders and spine. Surgical clips project over the lower mediastinum and epigastric region. Moderate hiatal hernia. IMPRESSION: 1. Cardiomegaly with mild pulmonary vascular congestion. 2. Subsegmental bibasilar opacities suggest atelectasis or pneumonitis with trace left pleural effusion. 3. Moderate hiatal hernia. The above report was generated using voice recognition software. It may contain grammatical, syntax or spelling errors. Electronically signed by: Shane Paulino M.D. 03/04/2018 8:14 PM Dictated Date/Time: 03/04/2018 8:12 PM Laboratory Results 03/04/18 20:55 Red Blood Count 4.13, Mean Corpuscular Volume 86.4, Mean Corpuscular Hemoglobin 28.8, Mean Corpuscular Hemoglobin Concent 33.3, Mean Platelet Volume 10.6, Neutrophils (%) (Auto) 72.7, Lymphocytes (%) (Auto) 14.6, Monocytes (%) (Auto) 8.6, Eosinophils (%) (Auto) 3.3, Basophils (%) (Auto) 0.5, Neutrophils # (Auto) 4.79, Lymphocytes # (Auto) 0.96, Monocytes # (Auto) 0.57, Eosinophils # (Auto) 0.22, Basophils # (Auto) 0.03 03/04/18 20:55 Test 03/04/18 20:55 White Blood Count 6.59 K/uL (4.8-10.8) Red Blood Count 4.13 M/uL (4.2-5.4) Hemoglobin 11.9 g/dL (12.0-16.0) Hematocrit 35.7 % (37-47) Mean Corpuscular Volume 86.4 fL (80-100) Mean Corpuscular Hemoglobin 28.8 pg (25-34) Mean Corpuscular Hemoglobin Concent 33.3 g/dl (32-36) Platelet Count 149 K/uL (130-400) Mean Platelet Volume 10.6 fL (7.4-10.4) Neutrophils (%) (Auto) 72.7 % Lymphocytes (%) (Auto) 14.6 % Monocytes (%) (Auto) 8.6 % Eosinophils (%) (Auto) 3.3 % Basophils (%) (Auto) 0.5 % Neutrophils # (Auto) 4.79 K/uL (1.4-6.5) Lymphocytes # (Auto) 0.96 K/uL (1.2-3.4) Monocytes # (Auto) 0.57 K/uL (0.11-0.59) Eosinophils # (Auto) 0.22 K/uL (0-0.5) Basophils # (Auto) 0.03 K/uL (0-0.2) RDW Standard Deviation 47.9 fL (36.4-46.3) RDW Coefficient of Variation 15.1 % (11.5-14.5) Immature Granulocyte % (Auto) 0.3 % Immature Granulocyte # (Auto) 0.02 K/uL (0.00-0.02) Prothrombin Time 10.8 SECONDS (9.0-12.0) Prothromb Time International Ratio 1.0 (0.9-1.1) Activated Partial Thromboplast Time 20.2 SECONDS (21.0-31.0) Partial Thromboplastin Ratio 0.8 Anion Gap 5.0 mmol/L (3-11) Est Creatinine Clear Calc Drug Dose 58.4 ml/min Estimated GFR () 49.9 Estimated GFR (Non- 43.0 BUN/Creatinine Ratio 13.5 (10-20) Calcium Level 9.2 mg/dl (8.5-10.1) Total Bilirubin 0.4 mg/dl (0.2-1) Direct Bilirubin mg/dl (0-0.2) Aspartate Amino Transf (AST/SGOT) 15 U/L (15-37) Alanine Aminotransferase (ALT/SGPT) 12 U/L (12-78) Alkaline Phosphatase 146 U/L (45-117) Troponin I < 0.015 ng/ml (0-0.045) Pro-B-Type Natriuretic Peptide 2756 pg/ml (0-900) Total Protein 7.2 gm/dl (6.4-8.2) Albumin 3.8 gm/dl (3.4-5.0) Laboratory results reviewed by me Medications Administered Medications (Trade) Dose Ordered Sig/Galileo Route Start Time Stop Time Status Last Admin Dose Admin Morphine Sulfate (MoRPHine SULFATE INJ) 4 mg NOW STAT IV 03/04/18 19:52 03/04/18 19:55 DC 03/04/18 20:53 4 MG Acetaminophen (Tylenol Tab) 650 mg NOW STAT PO 03/04/18 22:32 03/04/18 22:35 DC 03/04/18 22:39 650 MG ECG Per My Interpretation Indication: other (swelling) Rate (beats per minute): 82 Rhythm: atrial fibrillation Findings: other (No obvious STS changes or TWI) Comparison ECG Date: 02/28/18 Change: no significant change ED Course 1943: The patient was evaluated in room A11B. A complete history and physical exam was performed. 2227: I reevaluated the patient. Discussed results and discharge instructions: she verbalized understanding and agreement. Case management is going to try and set up a follow up appointment with wound care. The patient is ready for discharge after case management assists her. Medical Decision Nursing notes reviewed. Ancillary studies and prior records reviewed. The patient is a 68 year old white female with a past medical history of asthma , HTN, DJD, GERD, HLD, seizure, renal insufficiency, appendectomy, cholecystectomy, left total knee replacement who presents to the ED with a cc of worsening swelling to her bilateral LE beginning a few months ago. Differential diagnosis: Etiologies such as DVT, musculoskeletal, infection, joint effusion, trauma, lymphedema, idiopathic, CHF, as well as others were entertained. Patient was seen and evaluated at the bedside. Patient was complaining of some lower extremity swelling as well as feelings that she was shaking. Patient denies any infectious symptoms. Of note the patient was recently seen and evaluated for bilateral lower extremity swelling. Patient of note was placed on Eliquis unsure as to whether not this was related to her recent fibular fracture or due to her history of chronic A. fib. The patient does have some bilateral lower extremity left greater than right. The patient is neurovascularly intact distally. Patient denies any recent falls. The patient did have blood work completed along with EKG, troponin, BNP, chest x -ray, and left lower extremity ultrasound. Patient's blood work showed normal white blood cell count. Patient does have some chronic anemia. Patient baseline creatinine of 0.8 0.9 and today it is 1.2. This may be related either to the Lasix or due to some mild volume overload. Patient's BNP is 2200. Patient's chest x-ray does show some vascular congestion but no overt pulmonary edema. Patient did have a left lower extremity ultrasound which was negative for DVT. The patient was given pain medication and her symptoms improved. Patient's EKG does show A. fib which is chronic. No acute ischemic changes. I did discuss that the patient may benefit from follow-up with wound care as they do help with chronic edema. Patient was told to continue to use her pneumatic pumps. I do not believe that the patient requires inpatient treatment at this time but was told to continue with her Lasix and to follow-up with her PCP and return if she had any worsening symptoms. I did discuss with the correctional counselor/case manager about arranging a follow-up appointment with wound care clinic. They would call tomorrow to help schedule an appointment. Patient was deemed suitable for outpatient follow-up and treatment at this time. Patient was given strict follow-up, discharge, and return precautions. All questions were answered. Patient was deemed suitable for outpatient follow-up at this time. Patient agreed with the plan of care and was safely discharged home. Medication Reconcilliation Current Medication List: was personally reviewed by me Blood Pressure Screening Patient's blood pressure: Normal blood pressure Blood pressure disposition: Did not require urgent referral Impression Primary Impression: Swelling of left extremity Additional Impressions: Swelling of right extremity Anemia Volume overload Scribe Attestation The scribe's documentation has been prepared under my direction and personally reviewed by me in its entirety. I confirm that the note above accurately reflects all work, treatment, procedures, and medical decision making performed by me. Departure Information Dispostion Home / Self-Care Referrals Marcelo Escoto M.D. (PCP) Forms HOME CARE DOCUMENTATION FORM, IMPORTANT VISIT INFORMATION, WORK / SCHOOL INSTRUCTIONS Patient Instructions ED Leg Swelling Bilateral, [facility] Additional Instructions Please return to the emergency department if you have worsening or recurrent symptoms not amenable to at-home treatment. Please call for a follow-up appointment with her primary care physician. Please take your medications as prescribed. If you have other concerns and/or complaints please feel free to also call your primary care physician's office or return the ED for further evaluation, management, and treatment. You were found to have an elevated blood pressure today (>120 sytolic or >90 diastolic). Per medicare guidelines, you need to follow up with this blood pressure screening with your Primary Care Physician (PCP). For a new PCP call [phone]. As discussed during your prior ER visit please take your Lasix at 40 mg daily. Please continue to use your pneumatic pumps to help with your leg swelling. The correctional counselor/case manager will help arrange a follow-up appointment for you in the wound care center. You have been examined and treated today on an emergency basis only. This is not a substitute for, or an effort to provide, complete comprehensive medical care. It is impossible to recognize and treat all injuries or illnesses in a single emergency department visit. It is therefore important that you follow up closely with [facility], your PCP, and/or your specialist(s). Call as soon as possible for an appointment. Thank you for your time and consideration. I look forward to speaking with you again soon. Please don't hesitate to call us if you have any questions. Problem Qualifiers Additional Impressions: Anemia Anemia type: unspecified type Qualified Codes: D64.9 - Anemia, unspecified Volume overload Hypervolemia type: unspecified Qualified Codes: E87.70 - Fluid overload, unspecified
--- NOTE | 2018-03-04 20:15 | DIAGNOSTIC IMAGING REPORT ---
CHEST ONE VIEW PORTABLE HISTORY: 68 years-old Female CHEST PAIN acute atypical chest pain COMPARISON: Chest radiograph 02/28/2018, CT 02/23/2017. TECHNIQUE: Portable AP view of the chest FINDINGS: Cardiac silhouette is mildly enlarged. There is mild pulmonary vascular congestion without pneumothorax. Mild blunting of left costophrenic angle suggests trace effusion. Persistent left greater the right bibasilar opacities. No pneumothorax. Degenerative changes of the shoulders and spine. Surgical clips project over the lower mediastinum and epigastric region. Moderate hiatal hernia. IMPRESSION: 1. Cardiomegaly with mild pulmonary vascular congestion. 2. Subsegmental bibasilar opacities suggest atelectasis or pneumonitis with trace left pleural effusion. 3. Moderate hiatal hernia. The above report was generated using voice recognition software. It may contain grammatical, syntax or spelling errors. Electronically signed by: Shane Paulino M.D. 03/04/2018 8:14 PM Dictated Date/Time: 03/04/2018 8:12 PM
[2018-03-04] MEDS ORDERED: ALBUTEROL 90MCG INH (20:45)
[2018-03-04] MEDS ORDERED: ALBINSX INH (20:47)
[2018-03-04] MEDS ORDERED: IPRATROPIUM 0.03% NAE (20:51)
[2018-03-04] MEDS ORDERED: CLOB1OIN2 TOP (20:54)
[2018-03-04] MEDS ORDERED: DOCU100C31 PO (21:03)
[2018-03-04 21:05] LABS: BASO % 0.5 %; BASO ABS # 0.03 K/uL (0-0.2); EOS % 3.3 %; EOS ABS # 0.22 K/uL (0-0.5); HEMATOCRIT 35.7 % (37-47); HEMOGLOBIN 11.9 g/dL (12.0-16.0); IG# 0.02 K/uL (0.00-0.02); LYMPH % 14.6 %; LYMPH ABS # 0.96 K/uL (1.2-3.4); MEAN CELL VOLUME 86.4 fL (80-100); MEAN CORPUSCULAR HEMOGLOBIN 28.8 pg (25-34); MEAN CORPUSCULAR HGB CONC 33.3 g/dl (32-36); MEAN PLATELET VOLUME 10.6 fL (7.4-10.4); MONO % 8.6 %; MONO ABS # 0.57 K/uL (0.11-0.59); NEUT % 72.7 %; NEUT ABS # 4.79 K/uL (1.4-6.5); PLATELET COUNT 149 K/uL (130-400); RED CELL DISTRIBUTION WIDTH CV 15.1 % (11.5-14.5); RED CELL DISTRIBUTION WIDTH SD 47.9 fL (36.4-46.3); WHITE BLOOD COUNT 6.59 K/uL (4.8-10.8)
[2018-03-04] MEDS ORDERED: ESCI10TA17 PO (21:06)
[2018-03-04] MEDS ORDERED: FLUT0.15 NAE (21:10)
[2018-03-04] MEDS ORDERED: FURO-85 PO (21:11)
[2018-03-04] MEDS ORDERED: LAMO150T PO (21:13)
[2018-03-04 21:15] LABS: PTT PATIENT 20.2 SECONDS (21.0-31.0)
[2018-03-04] MEDS ORDERED: LEVE500T PO (21:16)
[2018-03-04] MEDS ORDERED: LORA-741 PO (21:19)
[2018-03-04] MEDS ORDERED: METO5TAB2 PO (21:25)
[2018-03-04] MEDS ORDERED: RANI150T85 PO (21:31)
[2018-03-04] MEDS ORDERED: MCRK/20 PO (21:33)
[2018-03-04 21:43] LABS: ALBUMIN 3.8 gm/dl (3.4-5.0); ALKALINE PHOSPHATASE 146 U/L (45-117); ALT/SGPT 12 U/L (12-78); AST/SGOT 15 U/L (15-37); BLOOD UREA NITROGEN 17 mg/dl (7-18); CALCIUM 9.2 mg/dl (8.5-10.1); CARBON DIOXIDE 28 mmol/L (21-32); CREATININE 1.27 mg/dl (0.60-1.20); GLUCOSE 96 mg/dl (70-99); POTASSIUM 4.8 mmol/L (3.5-5.1); SODIUM 143 mmol/L (136-145); TOTAL PROTEIN 7.2 gm/dl (6.4-8.2)
[2018-03-04] MEDS ORDERED: METO25TA56 PO (21:45)
--- NOTE | 2018-03-04 21:45 | DIAGNOSTIC IMAGING REPORT ---
L VENOUS DOPP LOWER EXT UNILAT HISTORY: 68 years-old Female LLE swelling, h/o fibular frx acute left lower extremity pain and swelling COMPARISON: Duplex venous Doppler study 12/24/2017 TECHNIQUE: Multiple real-time sonographic images of the left lower extremity deep venous structures were obtained assessing grayscale appearance, color and spectral flow FINDINGS: Limited visualization of the venous structures secondary to soft tissue edema and patient body habitus. The calf veins are specifically not well seen. There is normal flow, compressibility, phasicity and augmentation of the left lower extremity deep venous structures. IMPRESSION: No sonographic evidence of deep venous thrombosis. The above report was generated using voice recognition software. It may contain grammatical, syntax or spelling errors. Electronically signed by: Shane Paulino M.D. 03/04/2018 9:44 PM Dictated Date/Time: 03/04/2018 9:42 PM
[2018-03-04] MEDS ORDERED: PANT40TA PO (21:47)
[2018-03-04] MEDS ORDERED: APIX1TAB3 PO (21:50)
[2018-03-04] MEDS ORDERED: ONDA4TAB46 SL (21:54)
[2018-03-04] MEDS ORDERED: IRON PO (21:56)
[2018-03-04] MEDS ORDERED: IPRA0.03 NAE (22:02)
[2018-03-04] MEDS ORDERED: ALBU18002 INH (22:07)
[2018-03-04] MEDS ORDERED: ACETAMINOPHEN 325 MG TAB PO STA (22:32)
[2018-03-04 23:46] VITALS: BP 161/96; PULSE 77; O2SAT 95
== END 2018-03-04 23:48 | disposition home or self-care (01) ==
LOC: EDBD 19:37 → C.EDA 19:38
DX: R60.0 Localized edema (principal); D64.9 Anemia, unspecified; E87.70 Fluid overload, unspecified; J45.909 Unspecified asthma, uncomplicated; I10 Essential (primary) hypertension; E78.5 Hyperlipidemia, unspecified; M19.90 Unspecified osteoarthritis, unspecified site; K21.9 Gastro-esophageal reflux disease without esophagitis; G40.909 Epilepsy, unspecified, not intractable, without status epilepticus; Z90.89 Acquired absence of other organs; Z90.49 Acquired absence of other specified parts of digestive tract; Z96.652 Presence of left artificial knee joint; Z79.01 Long term (current) use of anticoagulants; Z79.899 Other long term (current) drug therapy; Z90.710 Acquired absence of both cervix and uterus; Z82.49 Family history of ischemic heart disease and other diseases of the circulatory system; Z84.1 Family history of disorders of kidney and ureter; Z91.048 Other nonmedicinal substance allergy status; Z79.52 Long term (current) use of systemic steroids

== ENCOUNTER → 2018-04-04 | Outpatient (CLI) | payer OTHER ==
[~2018-04-04] MED LIST changes: +ALBU18002 INH; -DOCU-94 PO; +DOCU100C31 PO; -FERR1TAB13 PO; +FURO-85 PO; -FURO20TA PO; +IRON PO; -LAMO100T16 PO; +LAMO150T PO; -LAMO200T35 PO; -LPR25 PO; -MAGN400T5 PO; +MCRK/20 PO; -MECL1TAB40 PO; +METO25TA56 PO; +ONDA4TAB46 SL; -POTA20TA13 PO; -VNTHFA/IN PO
== END | disposition home or self-care (01) ==
LOC: C.RDSM 10:16
PROVIDERS: ATTEND Orthopaedic Surgery Sports Medicine
DX: Z09 Encounter for follow-up examination after completed treatment for conditions other than malignant neoplasm (principal)

== ENCOUNTER → 2018-06-19 | Day surgery (SDC) | payer OTHER ==
[2018-06-18 08:44] VITALS: BMI 39.0
[~2018-06-19] VITALS: Ht 170.2 cm; Wt 113.6 kg
[~2018-06-19] MED LIST changes: +LIDOCAINE HCL 2% 2 ML VIAL (20MG/ML) ONE; +MIDAZOLAM HCL 1 MG/ML 2ML VIAL ONE; +ONDANSETRON INJ 2 MG/ML 2 ML VIAL ONE; +PROPOFOL IV EMULSION 10 MG/ML 20 ML VIAL ONE; +SODIUM CHLORIDE 0.9% 500ML 500 ML IV ONE
[2018-06-19 08:39] VITALS: Ht 170.2 cm; Wt 113.6 kg
[2018-06-19 08:48] VITALS: TEMP 36.2
--- NOTE | 2018-06-19 09:08 | Endo History and Physical ---
History & Physical Date of Service: Jun 19, 2018. Chief Complaint: dysphagia Referring Physician: Dr. Escoto History of Present Illness Dysphagia with dysmotility. Past Medical History Osteoporosis, Arthritis, Asthma, Reflux, Seizure Disorder, Sleep Apnea, Hypertension, COPD Past Surgical History Hx Cardiac Surgery: No Hx Internal Defibrillator: No Hx Pacemaker: No Hx Abdominal Surgery: Yes (PATRICIO, APPY, COLON RESECTION, OPEN TEODORO FUNDOPLICATION) Hx of Implantable Prosthesis: No Hx Post-Op Nausea and Vomiting: No Hx Cancer Surgery: No Hx Thoracic Surgery: No Hx Orthopedic: Yes (NECK AND BACK SX (LUMBAR), L SHOULDER REPAIR) Hx Urinary Tract Surgery: No Family History None Social History Smoking Status: Never Smoker Hx Substance Use: No Hx Alcohol Use: No Allergies Coded Allergies: Adhesives (Verified Adverse Reaction, Unknown, ITCHY, 06/19/18) Current Medications Reported Home Medications Medications Dose Route/Sig Max Daily Dose Days Date Category Dose Instructions Proair Respiclick (Albuterol Sulfate) 108 Mcg/Act Aer 2 Puffs INH QID PRN 03/04/18 Reported Ipratropium Linwood (Ipratropium Linwood (Nasal)) 0.03 % Spr 2 Sprays MORIS TID 03/04/18 Reported [Ra Iron 65MG] 65 Mg PO BIDM 03/04/18 Reported Zofran (Ondansetron HCl) 4 Mg Tab 4 Mg SL Q6H PRN 03/04/18 Reported Eliquis (Apixaban) 5 Mg Tab 5 Mg PO DAILY 03/04/18 Reported Protonix (Pantoprazole Sodium) 40 Mg Tab 40 Mg PO BID 03/04/18 Reported Lopressor (Metoprolol Tartrate) 25 Mg Tab 25 Mg PO DAILY 03/04/18 Reported Potassium Chloride ER (Potassium Chloride) 20 Meq Tabcr 20 Meq PO DAILY 03/04/18 Reported Metoclopramide Hcl 5 Mg Tab 5 Mg PO BID 03/04/18 Reported Ativan (Lorazepam) 0.5 Mg Tab 0.5 Mg PO BID 03/04/18 Reported Levetiracetam (Levetiractam) 500 Mg Tab 500 Mg PO BID 03/04/18 Reported Lamictal (Lamotrigine) 150 Mg Tab 300 Mg PO BID 03/04/18 Reported Lasix (Furosemide) 20 Mg Tab 20 Mg PO DAILY 03/04/18 Reported Flonase Allergy Relief (Fluticasone Propionate (Nasal)) 50 Mcg/Act Spr 2 Sprays MORIS DAILY 03/04/18 Reported Docusate Sodium 100 Mg Cap 100 Mg PO BID PRN 03/04/18 Reported Estrace (Estradiol Vaginal) 0.1 Mg/Gm Cre 0.25 Appl PV UD 08/14/17 Reported insert 1/4 applicator vaginally 2-3 times per week. apply thin layer externally on same evening Multivitamin (Multivitamins) Tab 1 Tab PO DAILY 08/14/17 Reported Mag-Ox (Magnesium Oxide) 400 Mg Tab 400 Mg PO BID 12/05/16 Reported Vital Signs Weight (Kilograms): 113.64 Height (Feet): 5 Height (Inches): 7 Date Time Temp Pulse Resp B/P (MAP) Pulse Ox O2 Delivery O2 Flow Rate FiO2 06/19/18 08:48 36.2 67 20 176/99 (124) 98 Room Air Physical Exam General Appearance: WD/WN, no apparent distress Respiratory/Chest: Auscultation: breath sounds normal, no wheezing Cardiovascular: Heart Auscultation: RRR, no murmurs Abdomen: Inspection & Palpation: soft, no tenderness, guarding & rebound Assessment and Plan EGD today. (Note: patient is on Eliquis and has not stopped it).
--- NOTE | 2018-06-19 09:48 | GI REPORT ---
Patient Name: Andriy Salmon Procedure Date: 06/19/2018 9:03 AM Date of : 1950 Admit Type: Outpatient Age: 68 Gender: Female Attending MD: Joseph Montes MD Procedure: Upper GI endoscopy Providers: Joseph Montes MD Referring MD: Marcelo Escoto Indications: Dyspepsia Medicines: Propofol per Anesthesia Complications: No immediate complications. Estimated blood loss: None. Estimated Blood Loss: Estimated blood loss: none. Procedure: Pre-Anesthesia Assessment: - Prior to the procedure, a History and Physical was performed, and patient medications, allergies and sensitivities were reviewed. The patient's tolerance of previous anesthesia was reviewed. - ASA Grade Assessment: III - A patient with severe systemic disease. After obtaining informed consent, the endoscope was passed under direct vision. Throughout the procedure, the patient's blood pressure, pulse, and oxygen saturations were monitored continuously. The scope was introduced through the mouth, and advanced to the third part of duodenum. The upper GI endoscopy was accomplished with ease. The patient tolerated the procedure well. Findings: No endoscopic abnormality was evident in the esophagus to explain the patient's complaint of dysphagia. It was decided, however, to proceed with dilation of the entire esophagus. A guidewire was placed and the scope was withdrawn. Dilation was performed with a Savary dilator with no resistance at 15 mm and 16 mm. The examined esophagus was moderately tortuous. The Z-line was regular and was found 35 cm from the incisors. A large hiatal hernia was present. Localized moderate inflammation characterized by adherent blood, congestion (edema) and erythema was found in the gastric antrum. The examined duodenum was normal. Impression: - No endoscopic esophageal abnormality to explain patient's dysphagia. Esophagus dilated. Dilated. - Tortuous esophagus. - Z-line regular, 35 cm from the incisors. - Large hiatal hernia. - Gastritis. - Normal examined duodenum. - No specimens collected. Recommendation: - Observe patient's clinical course. - Discharge patient to home (with escort). Joseph Montes M.D. Joseph Montes MD 06/19/2018 9:47:38 AM This report has been signed electronically. Note Initiated On: 06/19/2018 9:03 AM Number of Addenda: 0 I attest to the content of the Intraoperative Record and orders documented therein, exceptions below {[id number]}
--- NOTE | 2018-06-19 09:51 | Discharge Instructions ---
Endoscopy Patient Instructions Date / Procedure(s) Performed Jun 19, 2018. EGD Allergy Information Coded Allergies: Adhesives (Verified Adverse Reaction, Unknown, ITCHY, 06/19/18) Discharge Date / Findings Jun 19, 2018. Esophageal dysmotility, dilated to 48 Fr; large hiatal hernia, gastritis Medication Instructions Restart Stopped Medication(s): Resume all medications today. Provider Instructions Activity Restrictions - No exercising or heavy lifting for 24 hours. - Do not drink alcohol the day of the procedure. - Do not drive a car or operate machinery until the day after the procedure. - Do not make any important decisions or sign important papers in 24 hours after the procedure. Following Day: - Return to full activity which may include returning to work/school. Diet Start your diet with liquids and light foods (jello, soup, juice, toast). Then eat your usual diet if not nauseated. Treatment For Common After Affects For mild abdominal pain, bloating, or excessive gas: - Rest - Eat lightly - Lie on right side Follow-Up Information Follow-up with Dr. Escoto as scheduled Anesthesia Information What You Should Know You have had a procedure that required some medicine to reduce anxiety and discomfort. This treatment is called moderate sedation. After receiving the treatment, you may be sleepy, but you will be able to breathe on your own. The effects of the treatment may last for several hours. Follow these instructions along with Activity/Diet recommendations noted above: * Do NOT do anything where dizziness or clumsiness would be dangerous. * Rest quietly at home today, then you can be up and about tomorrow. * Have a responsible person stay with you the rest of today. * You may have had an I.V. today. If so, you may take the dressing off later today. Recommendations Call your doctor if: * Trouble breathing * Continuous vomiting for more than 24 hours * Temperature above 101 degrees * Severe abdominal pain or bloating * Pain not relieved by pain medicine ordered * There is increased drainage or redness from any incision * A large amount of rectal bleeding greater than 2-3 tablespoons. (If you had a polyp/s removed or have hemorrhoids, a small amount of blood - from the rectum is to be expected.) * You have any unanswered questions or concerns. IN THE EVENT OF A SERIOUS EMERGENCY, GO TO THE NEAREST EMERGENCY ROOM Your discharge instructions were prepared by provider Joseph Montes. Patient Instructions Signature Page Andriy Salmon Patient (or Guardian) Signature/Date: I have read and understand the instructions given to me by my caregivers. Caregiver/RN/Doctor Signature/Date: The above-named patient and/or guardian has received patient instructions on this date. + Original Patient Signature Page (only) stays with chart. Please make copy for patient.
--- NOTE | 2018-06-19 10:03 | Anesthesiology Progress Note ---
Anesthesia Post Op Note Date & Time Jun 19, 2018 at 10:02 Vital Signs Pain Intensity: 0 Vital Signs Past 12 Hours Date Time Temp Pulse Resp B/P (MAP) Pulse Ox O2 Delivery O2 Flow Rate FiO2 06/19/18 09:54 64 20 151/98 (115) 95 Room Air 06/19/18 09:47 77 20 136/85 (102) 97 Room Air 06/19/18 08:48 36.2 67 20 176/99 (124) 98 Room Air Notes Mental Status: alert / awake / arousable, participated in evaluation Pt Amnestic to Procedure: Yes Nausea / Vomiting: adequately controlled Pain: adequately controlled Airway Patency, RR, SpO2: stable & adequate BP & HR: stable & adequate Hydration State: stable & adequate Anesthetic Complications: no major complications apparent
[2018-06-19 10:14] VITALS: BP 163/83; PULSE 68; O2SAT 94
== END | disposition home or self-care (01) ==
LOC: C.GI 07:55
PROVIDERS: ATTEND Internal Medicine Gastroenterology
DX: R13.10 Dysphagia, unspecified (principal); K22.4 Dyskinesia of esophagus; K44.9 Diaphragmatic hernia without obstruction or gangrene; K29.70 Gastritis, unspecified, without bleeding; K21.9 Gastro-esophageal reflux disease without esophagitis; R60.9 Edema, unspecified; J44.9 Chronic obstructive pulmonary disease, unspecified; M19.90 Unspecified osteoarthritis, unspecified site; M81.0 Age-related osteoporosis without current pathological fracture; G40.909 Epilepsy, unspecified, not intractable, without status epilepticus; Z90.49 Acquired absence of other specified parts of digestive tract

== ENCOUNTER 2021-07-09 23:08 | Inpatient (IN) ==
[2021-07-09] MEDS ORDERED: ONDANSETRON INJ 2 MG/ML 2 ML VIAL ONE (23:37)
[2021-07-09] MEDS ORDERED: LORazepam 1 MG/2 ML VIAL IV STA (23:42)
[2021-07-09] MEDS ORDERED: SODIUM CHLORIDE 0.9% 500 ML IV ONE (23:44)
[2021-07-09 23:55] LABS: Basophils # (auto) 0.01 K/uL (0-0.2); Basophils % (auto) 0.1 %; Eosinophils # (auto) 0.11 K/uL (0-0.5); Eosinophils % (auto) 0.8 %; Hematocrit (blood only) 39.6 % (37-47); Hemoglobin 12.9 g/dL (12.0-16.0); Immature Granulocytes # (auto) 0.02 K/uL (0.00-0.02); Immature Granulocytes % (auto) 0.1 %; Lymphocytes # (auto) 1.02 K/uL (1.2-3.4); Lymphocytes % (auto) 7.1 %; Mean Corpuscular Hemoglobin 26.7 pg (25-34); Mean Corpuscular Hgb Conc 32.6 g/dL (32-36); Mean Corpuscular Volume 81.8 fL (80-100); Mean Platelet Volume 11.4 fL (7.4-10.4); Monocytes # (auto) 0.73 K/uL (0.11-0.59); Monocytes % (auto) 5.1 %; Neutrophils # (auto) 12.45 K/uL (1.4-6.5); Neutrophils % (auto) 86.8 %; Platelet Count 198 K/uL (130-400); RDW Coefficient of Variation 15.7 % (11.5-14.5); RDW Standard Deviation 47.1 fL (36.4-46.3); Red Blood Count 4.84 M/uL (4.2-5.4); White Blood Count 14.34 K/uL (4.8-10.8)
[2021-07-10 00:08] LABS: Alanine Aminotransferase 15 U/L (12-78); Aspartate Aminotransferase 14 U/L (15-37); BUN Creatinine Ratio 11.2 (10-20); Blood Urea Nitrogen 12 mg/dl (7-18); Calcium 9.5 mg/dl (8.5-10.1); Carbon Dioxide 20 mmol/L (21-32); Chloride 114 mmol/L (98-107); Est GFR (African American) 62.2 ml/min; Est GFR (Non-African American) 53.6 ml/min; Glucose 147 mg/dl (70-99); Lipase 210 U/L (73-393); Potassium 3.7 mmol/L (3.5-5.1); Sodium 142 mmol/L (136-145)
[2021-07-10 00:11] LABS: Albumin Globulin Ratio 1.1 (0.9-2); Alkaline Phosphatase 161 U/L (45-117); Bilirubin,Total 0.3 mg/dl (0.2-1); Globulin 3.8 gm/dl (2.5-4.0); Total Protein 7.8 gm/dl (6.4-8.2)
[2021-07-10] MEDS ORDERED: HYDROmorphone INJ 1 MG/ML SYRINGE IV STA (00:46)
[2021-07-10] MEDS ORDERED: ONDANSETRON INJ 2 MG/ML 2 ML VIAL IV STA (00:46)
[2021-07-10] MEDS ORDERED: OPTIRAY 320 100ml IV ONE (01:03)
[2021-07-10] MEDS ORDERED: METOPROLOL TARTRATE 1 MG/ML VIAL IV PRN (03:56)
--- NOTE | 2021-07-10 04:05 | History & Physical Report ---
Date of Service July 10, 2021 Assessment & Plan (1) Small bowel obstruction: Plan: Small bowel obstruction/hiatal hernia with retained food in stomach/GERD- NPO NG tube to low intermittent suction Famotidine 20 mg IV every 12 hours Zosyn 3.375 mg IV every 8 hours Zofran 4 mg IV every 6 hours as needed NSS + KCl 20 mEq at 100 mils per hour General surgery is aware Has been seen by gastroenterology Dr. Bruno in the past (2) Retained food in stomach: Plan: See above (3) Hiatal hernia: Plan: See above (4) GERD (gastroesophageal reflux disease): Plan: Hold oral omeprazole and famotidine Placing on IV famotidine as noted (5) Atrial fibrillation: Plan: Atrial fibrillation/hypertension- Hold apixaban Placed on heparin drip low-dose without bolus Hold furosemide and potassium chloride (6) Hypertension: Plan: Holding meds while n.p.o. (7) Seizure disorder: Plan: Continue Lamictal dissolvable tablets at current dose Change Keppra from 500 mg p.o. twice daily to 500 mg IV twice daily while n.p.o. Hold gabapentin while n.p.o. (8) Chronic obstructive pulmonary disease: Plan: Have DuoNebs available to use every 2 hours as needed (9) Depression with anxiety: Plan: Hold mirtazapine while n.p.o. Lorazepam 0.5 mg IV every 6 hours as needed History of Present Illness Chief Complaint: The patient presents to the emergency department with worsening abdominal pain, nausea and vomiting Primary Care Provider: Marcelo Escoto MD The patient is a 71-year-old female with a past medical history including lumbar radiculopathy, seizure-like activity, hiatal hernia, partial small bowel obstruction, DJD of knee, gait abnormality, renal insufficiency, seizure disorder, morbid obesity, megaloblastic anemia, hypertension, hyperlipidemia, gout, depression with anxiety, COPD, aortic stenosis, hypertension, GERD, atrial fibrillation, stomach erosions determined by endoscopy and diverticulitis. The patient presents to the emergency department with symptoms of worsening ab dominal pain, nausea and vomiting similar to previous episodes of bowel obstructions. Work-up in the emergency department for CT scan of abdomen the pelvis which showed: A 12 cm hiatal hernia with retained gastric contents, and severe ileus versus intermediate grade small bowel obstruction. Allergies Allergy/AdvReac Type Severity Reaction Status Date / Time latex Allergy Intermediate Rash, itchy Verified 07/09/21 23:59 adhesive Allergy Mild ITCHY Verified 07/09/21 23:59 bacitracin Allergy Unknown Unknown Verified 07/09/21 23:59 [From Neosporin ([id number])] neomycin Allergy Unknown Unknown Verified 07/09/21 23:59 [From Neosporin ([id number])] polymyxin B Allergy Unknown Unknown Verified 07/09/21 23:59 [From Neosporin ([id number])] Home Medications Medication Instructions Recorded Confirmed Type magnesium oxide 400 mg (241.3 mg 200 mg PO BID 90 Days #90 tab 07/28/20 07/10/21 Rx magnesium) tablet gabapentin 300 mg capsule 300 mg PO TID 08/21/20 07/10/21 History furosemide 20 mg tablet 40 mg PO QAM #60 tab 09/15/20 07/10/21 Rx albuterol sulfate 90 mcg/actuation 2 puff INHALATION QID PRN #8.5 g 09/16/20 07/10/21 Rx aerosol inhaler Wheeled Walker #1 ea 09/20/20 06/21/21 Rx lamotrigine 100 mg disintegrating 100 mg PO BID #60 tab 09/27/20 07/09/21 Rx tablet levetiracetam 100 mg/mL oral 500 mg PO BID #300 ml 09/27/20 07/10/21 Rx solution Shower Chair #1 ea 10/27/20 06/21/21 Rx apixaban 5 mg tablet (Eliquis) 5 mg PO QAM #90 tab 12/22/20 07/10/21 Rx potassium chloride 10 mEq 20 meq PO QAM #180 tab 04/05/21 07/10/21 Rx tablet,extended release meclizine 12.5 mg tablet 12.5 - 25 mg PO Q6H PRN #30 tab 05/26/21 07/10/21 Rx mirtazapine 15 mg tablet 15 mg PO HS #30 tab 06/21/21 07/10/21 Rx lamotrigine 200 mg disintegrating 200 mg PO BID #60 tab 07/04/21 07/09/21 Rx tablet famotidine 20 mg tablet 20 mg PO HS 07/09/21 07/09/21 History omeprazole 20 mg capsule,delayed 20 mg PO DAILY 07/09/21 07/09/21 History release diclofenac sodium 1 % topical gel 1 ea TOPICAL QID MDD 16 grams 07/10/21 07/10/21 History Past Med/Surg History Medical History Asthma Atrial fibrillation Degenerative joint disease of right knee Diverticulitis Erosion of stomach determined by endoscopy GERD (gastroesophageal reflux disease) Hiatal hernia History of esophageal dilatation Hypertension Hypokalemia Migraine Osteoarthritis Poor historian Rheumatoid arthritis Seizure Temporomandibular joint disorder Vertigo Surgical History History of appendectomy History of arthroplasty of left knee History of cataract surgery History of cervical discectomy History of colonoscopy History of esophagogastroduodenoscopy (EGD) History of tooth extraction History of total hysterectomy with bilateral salpingo-oophorectomy (BSO) History of total left knee replacement (TKR) History of total right knee replacement (TKR) History of vascular access device S/P cholecystectomy Family History Other Family history non-contributory No family history of adverse response to anesthesia Social History Smoking Status: Never smoker Second Hand Exposure: Yes (parents smoked); Hx Alcohol Use: No (quit 10yrs ago) Hx Substance Use: No Preferred Language: Georgian Communication Ability: Effective Visual Impairment: No Limitations 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 Beliefs That Will Affect Care: None marital status: Single Current Living Situation: Alone current occupational status: retired Feels Safe at Home: Yes Assistive Devices: Cane, Glasses and Walker Review of Systems Review of Systems: The patient denies chest pain, palpitations, cough, lower extremity swelling, sore throat, fevers, chills, sweats, diarrhea , constipation, blood in urine or stool, dysuria, urinary frequency or urgency, lightheadedness, dizziness, headache, memory loss, loss of consciousness, rash, abnormal bruising or bleeding, imbalance, focal weakness, numbness or tingling in arms or legs, generalized arthralgias or myalgias, back or neck pain, or night sweats. The review of systems is otherwise negative other than for that already noted above, and at least 10 systems have been reviewed. Physical Exam Physical Exam: The patient is awake, alert and oriented 3, well developed and well nourished, normocephalic and atraumatic, lying in bed and in mild acute distress secondary to abdominal pain HEENT--PERRL, EOMI, mucous membranes and oropharynx dry. Neck--supple. No JVD. No bruits. Thyroid normal, trachea midline, no adenopathy. Heart--normal S1 and S2. No murmurs, rubs or gallops. Lungs--clear bilaterally, no respiratory distress, no accessory muscle use. Abdomen--decreased bowel sounds. Generalized tenderness. Mildly distended. Extremities--no cyanosis or clubbing. No edema. Dermatologic--normal skin turgor, normal color, no abnormal lymph nodes, no rash. Neurologic--cranial nerves II through XII grossly intact. Rheumatologic--normal range of motion. Psychiatric--normal affect. Results & Data Results & Data ([facility]) Vital Signs (Past 12 Hours) Vital Signs Temp Pulse Resp BP Pulse Ox 07/10/21 03:00 88 18 150/81 H 96 07/10/21 02:01 92 H 18 98/69 L 92 07/10/21 01:53 100 H 17 130/78 92 07/10/21 00:00 98.2 F 103 H 30 H 175/89 H 97 Laboratory Results Laboratory Results WBC 14.34 K/uL (4.8-10.8) H 07/09/21 23:23 RBC 4.84 M/uL (4.2-5.4) 07/09/21 23:23 Hgb 12.9 g/dL (12.0-16.0) 07/09/21 23:23 Hct 39.6 % (37-47) 07/09/21 23:23 MCV 81.8 fL (80-100) 07/09/21 23:23 MCH 26.7 pg (25-34) 07/09/21 23:23 MCHC 32.6 g/dL (32-36) 07/09/21 23:23 RDW Std Deviation 47.1 fL (36.4-46.3) H 07/09/21 23:23 RDW Coeff of Lucio 15.7 % (11.5-14.5) H 07/09/21 23:23 Plt Count 198 K/uL (130-400) 07/09/21 23:23 MPV 11.4 fL (7.4-10.4) H 07/09/21 23:23 Immature Gran % (Auto) 0.1 % 07/09/21 23:23 Neut % (Auto) 86.8 % 07/09/21 23:23 Lymph % (Auto) 7.1 % 07/09/21 23:23 [place] % (Auto) 5.1 % 07/09/21 23:23 Eos % (Auto) 0.8 % 07/09/21 23:23 Baso % (Auto) 0.1 % 07/09/21 23:23 Neut # (Auto) 12.45 K/uL (1.4-6.5) H 07/09/21 23:23 Lymph # (Auto) 1.02 K/uL (1.2-3.4) L 07/09/21 23:23 [place] # (Auto) 0.73 K/uL (0.11-0.59) H 07/09/21 23:23 Eos # (Auto) 0.11 K/uL (0-0.5) 07/09/21 23:23 Baso # (Auto) 0.01 K/uL (0-0.2) 07/09/21 23:23 Immature Gran # (Auto) 0.02 K/uL (0.00-0.02) 07/09/21 23:23 Sodium 142 mmol/L (136-145) 07/09/21 23:23 Potassium 3.7 mmol/L (3.5-5.1) 07/09/21 23:23 Chloride 114 mmol/L (98-107) H 07/09/21 23:23 Carbon Dioxide 20 mmol/L (21-32) L 07/09/21 23:23 Anion Gap 8.0 (3-11) 07/09/21 23:23 BUN 12 mg/dl (7-18) 07/09/21 23:23 Creatinine 1.04 mg/dl (0.6-1.2) 07/09/21 23:23 Est Cr Clr Drug Dosing Not Reportable 07/09/21 23: Est GFR ( Amer) 62.2 ml/min 07/09/21 23:23 Est GFR (Non-Af Amer) 53.6 ml/min 07/09/21 23:23 BUN/Creatinine Ratio 11.2 (10-20) 07/09/21 23:23 Glucose 147 mg/dl (70-99) H 07/09/21 23:23 Calcium 9.5 mg/dl (8.5-10.1) 07/09/21 23:23 Total Bilirubin 0.3 mg/dl (0.2-1) 07/09/21 23:23 AST 14 U/L (15-37) L 07/09/21 23:23 ALT 15 U/L (12-78) 07/09/21 23:23 Alkaline Phosphatase 161 U/L (45-117) H 07/09/21 23:23 Total Protein 7.8 gm/dl (6.4-8.2) 07/09/21 23:23 Albumin 4.0 gm/dl (3.4-5.0) 07/09/21 23:23 Globulin 3.8 gm/dl (2.5-4.0) 07/09/21 23:23 Albumin/Globulin Ratio 1.1 (0.9-2) 07/09/21 23:23 Lipase 210 U/L (73-393) 07/09/21 23:23 Diagnostic Findings [facility] Patient: LAURA GEIGER (Female) : 48 Status: ER Date: 07/10/21 02:08 Room #: History: DIFFUSE ABD PAIN, NAUSEA , VOMITING , DIARRHEA , 95 ML OPTIRAY 320, PT UNABLE TO LAY SUPINE OR FOLLOW BREATHING INSTRUCTIONS Slices: [id number] Priors: Tech: Monty Torres @ [phone] Exams: CT ABDOMEN & PELVIS With Contrast Contrast: IV Amt: 95 ML Accession Numbers: [id number] Referring Physician: REFERRED SELF Preliminary Findings Only See Final Report For Complete Findings CT ABDOMEN & PELVIS With Contrast: Comparison to November 18, 2013. There is a 12 cm hiatal hernia with small amount of adjacent left lung base atelectasis. Dilated stomach partially filled with ingested material there are several mildly dilated proximal small bowel loops in the upper abdomen demonstrate gas fluid levels. The distal small bowel is relatively decompressed suggesting either severe ileus or intermediate grade mid small bowel obstruction. The exact transition point is not clearly identified, possibly series 2 image #69 adjacent to a surgical clip suggesting adhesion. Slight biliary duct prominence postcholecystectomy. No choledocholithiasis is seen. The pancreas, spleen, adrenal glands, and kidneys are nonacute. There is a 4.7 cm right renal cyst measuring 36 HU which is nonspecific but similar to 2013. The aorta is mildly calcified but nondilated. The uterus has been removed. No free fluid in the pelvis. Moderate degenerative changes throughout the lumbar spine with previous instrumentation and fusion at L4-5. Radiologist: Jeff Sumner MD Study ready at 02:18 and initial results transmitted at 03:14 *This report constitutes a preliminary interpretation only. Non-acute findings felt to be unrelated to the clinical presentation may not be discussed in this report. The study will be interpreted and a final report will be generated by the local Radiologist the following shift. To reach the hospital radiology department call [phone]. If a discrepancy is found between the preliminary and final interpretations of this study, please notify us via our Client Portal at [employer] [email or web address], under QA Exams.You can also fax this report with a description of the discrepancy, or include the final report, to our daytime fax number [phone].If faxing, please indicate the severity of discrepancy using one of the following categories: [ ] 1 - Agree/Informational [ ] 2 - Unlikely to Affect Management [ ] 3 - Possible Eventual Change of Management [ ] 4 - Probable Immediate Change of Management For all other patient related information, please fax us at [phone]. [id number] Code Status & VTE Plan Code Status Full code VTE Prophylaxis Plan VTE Prophylaxis will be ordered: Yes PG Care Time/CCT Total # of Minutes Spent Total Time Spent with Patient: Total time spent is greater than 50% in coordination of care (as documented) at patient's floor/unit and/or counseling patient: Coding Level of Care Code 24635 Initial Inpt Care Lvl 3 Diagnoses Small bowel obstruction K56.609 Seizure disorder G40.909 Hypertension I10 Hypertension type: essential hypertension Depression with anxiety F41.8 Chronic obstructive pulmonary disease J44.9 COPD type: unspecified COPD Atrial fibrillation I48.2 Atrial fibrillation type: chronic GERD (gastroesophageal reflux disease) K21.0 Esophagitis presence: with esophagitis Hiatal hernia K44.9 Retained food in stomach K31.89 (1) Hypertension Hypertension type: essential hypertension Qualified Code(s): I10 - Essential (primary) hypertension (2) Chronic obstructive pulmonary disease COPD type: unspecified COPD Qualified Code(s): J44.9 - Chronic obstructive pulmonary disease, unspecified (3) Atrial fibrillation Atrial fibrillation type: chronic Qualified Code(s): I48.2 - Chronic atrial fibrillation (4) GERD (gastroesophageal reflux disease) Esophagitis presence: with esophagitis Qualified Code(s): K21.0 - Gastro- esophageal reflux disease with esophagitis
[2021-07-10] MEDS ORDERED: KETOROLAC TROMETHAMINE 15 MG/ML VIAL IV STA (05:04)
[2021-07-10] MEDS: HYDROmorphone INJ 0.5 MG/0.5 ML SYR IV PRN ×4 (05:14→18:00)
[2021-07-10] MEDS ORDERED: LORazepam 0.5 MG/1 ML VIAL IV PRN (05:14)
--- NOTE | 2021-07-10 06:37 | XRay Report ---
KUB CLINICAL HISTORY: Evaluate nasogastric tube. COMPARISON STUDY: CT of the abdomen and pelvis performed earlier today. FINDINGS: A large hiatal hernia is noted. Tip of nasogastric tube is within the hiatal hernia on the first 2 images. The nasogastric tube was removed on the third image. Surgical clips within the lower chest and abdomen are incidentally noted. IMPRESSION: Large hiatal hernia. Tip of nasogastric tube within the hiatal hernia on the first two i mages. Tube subsequently removed on the final image. ACT 112: Negative or not required by law. Electronically signed by: Hair Green M.D. 07/10/2021 6:36 AM
--- NOTE | 2021-07-10 07:35 | Emergency Department Note ---
Impression & Plan Small bowel obstruction, Nausea vomiting and diarrhea Admit to the [facility] service ED Provider Note NAME: LAURA GEIGER AGE: 71 SEX: F ARRIVES VIA: Ambulance INFORMANT: Patient ED PROVIDER(S): Chandni Adams DO CHIEF COMPLAINT: Abdominal pain, nausea and vomiting PLAN: Disposition: Admit to the [facility] service Condition: Guarded MEDICAL DECISION MAKING: This is a 71-year-old female patient who presents to the emergency department with intermittent abdominal pain throughout the day. She then developed nausea and vomiting around 9:30 PM this evening after eating ice cream. Upon arrival here in the emergency department the patient had worsening abdominal pain and an episode of diarrhea. CT scan shows evidence of a small bowel obstruction. [facility] for further management. An NG tube replaced. Triage Nursing notes reviewed and agree with them. Prior medical records reviewed Vital Signs: reviewed and remarkable for tachycardia and hypertension Differential diagnosis: Small bowel obstruction, gastroenteritis, colitis, diverticulitis ER treatment provided: IV normal saline IV Dilaudid IV Zofran Diagnostics interpreted by me: ECG: Atrial fibrillation with rapid ventricular response at a rate of 127. There is no ST segment elevation or signs of ischemia. There is no ectopy. Cardiac Monitoring: Atrial fibrillation at a rate of 122 Laboratory studies: See below Imaging studies: As per stat read CT abdomen pelvis with contrast: There is a 12 cm hiatal hernia with a small amount of adjacent left lung base atelectasis. Dilated stomach partially filled with ingested material there are several mildly dilated proximal small bowel loops in the upper abdomen demonstrate gas fluid levels. The distal small bowel is relatively decompressed suggesting there are severe ileus or immediate grade mid small bowel obstruction. The exact transition point is not clearly identified, possibly series 2 image #69 adjacent to a surgical clip suggesting adhesion. Slight biliary duct prominence postcholecystectomy. No choledocholithiasis is seen. The pancreas, spleen, adrenal glands, and kidneys are nonacute. There is a 4.7 cm right renal cyst measuring 36 Hg which is nonspecific but similar to 2013. The aorta is mildly calcified but nondilated. Uterus has been removed. No free fluid in the pelvis. Moderate degenerative changes throughout the lumbar spine with previous instrumentation and fusion at L4-L5 Consultation(s): None HPI: 71/F arrives for evaluation of abdominal pain and vomiting.. The patient complains of mild abdominal pain intermittently throughout the day. However, tonight, the patient developed severe episodes of abdominal pain associated with nausea and vomiting. The patient tried eating some ice cream but immediately vomited back up. Upon my evaluation of the patient, she was actually having a charley horse in her left thigh and left tib-fib region. She had also had a large diarrheal bowel movement. ROS: See above HPI for pertinent positives & negatives. A total of 10 systems reviewed and were otherwise negative. PAST MEDICAL HISTORY:See Below PAST SURGICAL HISTORY:See Below FAMILY HISTORY:See Below SOCIAL HISTORY:See Below HOME MEDICATIONS:See list ALLERGIES:See list VITALS:See Below PHYSICAL EXAMINATION: HEENT: Head - normocephalic and atraumatic Pupils are equal, round, and reactive to light. Extraocular eye muscles are intact, and sclera are anicteric. Nose - moist nasal mucosa without discharge. Mouth - moist buccal mucosa. Oropharynx is nonerythematous and there is no tonsillar exudate or edema noted. Neck: Supple; no cervical lymphadenopathy or JVD Heart: Irregularly irregular rhythm with a tachycardic rate there is a normal S1 and S2 with no murmurs, clicks, or gallops appreciated. Lungs: Clear to auscultation bilaterally with no wheezes, rales, or rhonchi. Abdomen: Soft, moderately distended and diffusely tender to touch. There are no palpable pulsatile masses or hepatosplenomegaly. There is no guarding, rigidity, or rebound noted. Extremities: No evidence of cyanosis, clubbing, or edema. There are easily palpable peripheral pulses. Skin: warm and diaphoretic with good turgor and no rashes. ED COURSE: Patient was evaluated in room B6. A complete history and physical was performed. An order was placed for continuous cardiac monitoring. The patient was in A. fib at a rate of 122. A twelve-lead EKG was obtained. Laboratory studies were drawn as above. The patient was given a dose of IV Dilaudid and IV Zofran for pain and nausea. She will go for CT scan of the abdomen/pelvis. The patient did get relief of her discomfort with the above medications. I did follow-up on the patient and reviewed the results of the CT scan with her. She will have an NG tube placed. I discussed the case with the [facility] hospitalist and they will evaluate her for admission to the hospital. Covid test will be performed. 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 GERD (gastroesophageal reflux disease) Hiatal hernia History of esophageal dilatation Hypertension Hypokalemia Migraine Osteoarthritis Poor historian Rheumatoid arthritis Seizure Temporomandibular joint disorder Vertigo Surgical History History of appendectomy History of arthroplasty of left knee History of cataract surgery History of cervical discectomy History of colonoscopy History of esophagogastroduodenoscopy (EGD) History of tooth extraction History of total hysterectomy with bilateral salpingo-oophorectomy (BSO) History of total left knee replacement (TKR) History of total right knee replacement (TKR) History of vascular access device S/P cholecystectomy Family History Other Family history non-contributory No family history of adverse response to anesthesia Social History Smoking Status: Never smoker Second Hand Exposure: No; Hx Alcohol Use: No Hx Substance Use: No Preferred Language: Citizen Of [place] Communication Ability: Effective Visual Impairment: No Limitations 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 Iron 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 Required: No Beliefs That Will Affect Care: None marital status: Single Current Living Situation: Alone current occupational status: retired Feels Safe at Home: Yes Assistive Devices: Walker Allergies Allergies Allergy/AdvReac Type Severity Reaction Status Date / Time latex Allergy Intermediate Rash, itchy Verified 07/09/21 23:59 adhesive Allergy Mild ITCHY Verified 07/09/21 23:59 bacitracin Allergy Unknown Unknown Verified 07/09/21 23:59 [From Neosporin ([id number])] neomycin Allergy Unknown Unknown Verified 07/09/21 23:59 [From Neosporin ([id number])] polymyxin B Allergy Unknown Unknown Verified 07/09/21 23:59 [From Neosporin ([id number])] Home Meds Home Medications Medication Instructions Recorded Confirmed gabapentin 300 mg capsule 300 mg PO TID 08/21/20 07/10/21 famotidine 20 mg tablet 20 mg PO HS 07/09/21 07/09/21 omeprazole 20 mg capsule,delayed 20 mg PO DAILY 07/09/21 07/09/21 release diclofenac sodium 1 % topical gel 1 ea TOPICAL QID MDD 16 grams 07/10/21 07/10/21 Previous Rx's Medication Instructions Recorded magnesium oxide 400 mg (241.3 mg 200 mg PO BID 90 Days #90 tab 07/28/20 magnesium) tablet furosemide 20 mg tablet 40 mg PO QAM #60 tab 09/15/20 albuterol sulfate 90 mcg/actuation 2 puff INHALATION QID PRN #8.5 g 09/16/20 aerosol inhaler Wheeled Walker #1 ea 09/20/20 lamotrigine 100 mg disintegrating 100 mg PO BID #60 tab 09/27/20 tablet levetiracetam 100 mg/mL oral 500 mg PO BID #300 ml 09/27/20 solution Shower Chair #1 ea 10/27/20 apixaban 5 mg tablet (Eliquis) 5 mg PO QAM #90 tab 12/22/20 potassium chloride 10 mEq 20 meq PO QAM #180 tab 04/05/21 tablet,extended release meclizine 12.5 mg tablet 12.5 - 25 mg PO Q6H PRN #30 tab 05/26/21 mirtazapine 15 mg tablet 15 mg PO HS #30 tab 06/21/21 lamotrigine 200 mg disintegrating 200 mg PO BID #60 tab 07/04/21 tablet Results & Data (ED) Vital Signs Vital Signs - 24 hr 07/10/21 00:00 07/10/21 01:53 07/10/21 02:01 Temperature 36.8 C Temperature Source Oral Pulse Rate 103 H 100 H 92 H Pulse Rate [Right Finger] Respiratory Rate 30 H 17 18 Respiratory Depth Blood Pressure 175/89 H 130/78 98/69 L Blood Pressure [Right Arm] Blood Pressure Mean 117 95 78 Blood Pressure Mean [Right Arm] Blood Pressure Position [Right Arm] Pulse Oximetry 97 92 92 Oxygen Delivery Method Room Air Room Air Sepsis Recent Fever Within 48 Hours No Sepsis New/Unexplained Change in Mental Status N/A Sepsis Action Taken by Nursing No Action Required 07/10/21 03:00 07/10/21 05:02 07/10/21 06:53 Temperature Temperature Source Pulse Rate 88 75 Pulse Rate [Right Finger] 88 Respiratory Rate 18 16 18 Respiratory Depth Normal Blood Pressure 150/81 H 125/65 Blood Pressure [Right Arm] 133/96 Blood Pressure Mean 104 Blood Pressure Mean [Right Arm] 108 Blood Pressure Position [Right Arm] Lying Pulse Oximetry 96 98 98 Oxygen Delivery Method Room Air Room Air Sepsis Recent Fever Within 48 Hours Sepsis New/Unexplained Change in Mental Status Sepsis Action Taken by Nursing Laboratory Data Result diagrams: 07/11/21 06:59 07/11/21 06:59 Lab Results 07/09/21 07/09/21 Range/Units 23:23 23:23 WBC 14.34 H (4.8-10.8) K/uL RBC 4.84 (4.2-5.4) M/uL Hgb 12.9 (12.0-16.0) g/dL Hct 39.6 (37-47) % MCV 81.8 (80-100) fL MCH 26.7 (25-34) pg MCHC 32.6 (32-36) g/dL RDW Std Deviation 47.1 H (36.4-46.3) fL RDW Coeff of Lucio 15.7 H (11.5-14.5) % Plt Count 198 (130-400) K/uL MPV 11.4 H (7.4-10.4) fL Immature Gran % (Auto) 0.1 % Neut % (Auto) 86.8 % Lymph % (Auto) 7.1 % [place] % (Auto) 5.1 % Eos % (Auto) 0.8 % Baso % (Auto) 0.1 % Neut # (Auto) 12.45 H (1.4-6.5) K/uL Lymph # (Auto) 1.02 L (1.2-3.4) K/uL [place] # (Auto) 0.73 H (0.11-0.59) K/uL Eos # (Auto) 0.11 (0-0.5) K/uL Baso # (Auto) 0.01 (0-0.2) K/uL Immature Gran # (Auto) 0.02 (0.00-0.02) K/uL Sodium 142 (136-145) mmol/L Potassium 3.7 (3.5-5.1) mmol/L Chloride 114 H (98-107) mmol/L Carbon Dioxide 20 L (21-32) mmol/L Anion Gap 8.0 (3-11) BUN 12 (7-18) mg/dl Creatinine 1.04 (0.6-1.2) mg/dl Est Cr Clr Drug Dosing Not Reportable Est GFR ( Amer) 62.2 ml/min Est GFR (Non-Af Amer) 53.6 ml/min BUN/Creatinine Ratio 11.2 (10-20) Glucose 147 H (70-99) mg/dl Calcium 9.5 (8.5-10.1) mg/dl Total Bilirubin 0.3 (0.2-1) mg/dl AST 14 L (15-37) U/L ALT 15 (12-78) U/L Alkaline Phosphatase 161 H (45-117) U/L Total Protein 7.8 (6.4-8.2) gm/dl Albumin 4.0 (3.4-5.0) gm/dl Globulin 3.8 (2.5-4.0) gm/dl Albumin/Globulin Ratio 1.1 (0.9-2) Lipase 210 (73-393) U/L Administered Medications Hydromorphone HCl (Hydromorphone Inj 0.5 Mg/0.5 Ml Syr) 0.5 mg IV Q3H PRN PRN Reason: Severe Pain Stop: 07/24/21 04:59 Last Admin: 07/10/21 18:00 Dose: 0.5 mg Documented by: [id number] Admin: 07/10/21 13:37 Dose: 0.5 mg Documented by: [id number] Admin: 07/10/21 09:30 Dose: 0.5 mg Documented by: [id number] Admin: 07/10/21 05:14 Dose: 0.5 mg Documented by: [id number] Famotidine 20 mg/ Syringe 5 mls @ 2.5 mls/min IV Q12H DYANA Stop: 08/09/21 08:59 Last Admin: 07/11/21 08:56 Dose: 2.5 mls/min Documented by: [id number] Admin: 07/10/21 22:10 Dose: 2.5 mls/min Documented by: [id number] Admin: 07/10/21 10:30 Dose: 2.5 mls/min Documented by: [id number] Levetiracetam 500 mg/ Sodium (Chloride) 105 mls @ 420 mls/hr IV Q12H DAYNA Stop: 08/09/21 09:59 Last Infusion: 07/11/21 11:17 Dose: 0 mls/hr Documented by: [id number] Admin: 07/11/21 10:43 Dose: 420 mls/hr Documented by: [id number] Infusion: 07/11/21 01:56 Dose: 0 mls/hr Documented by: [id number] Admin: 07/10/21 22:21 Dose: 420 mls/hr Documented by: [id number] Infusion: 07/10/21 12:03 Dose: 0 mls/hr Documented by: [id number] Admin: 07/10/21 11:34 Dose: 420 mls/hr Documented by: [id number] Heparin Sodium/Dextrose (Heparin Sodium/Dextrose) 25,000 units in 500 mls @ 21 mls/hr IV .[id number] DYANA; Protocol Stop: 08/09/21 08:50 Last Admin: 07/11/21 14:25 Dose: 1,050 units/hr, 21 mls/hr Documented by: [id number] Cosigned by: [id number] Titration: 07/11/21 11:48 Dose: 1,050 units/hr, 21 mls/hr Documented by: [id number] Cosigned by: [id number] Titration: 07/11/21 10:56 Dose: 1,050 units/hr, 21 mls/hr Documented by: [id number] Cosigned by: [id number] Titration: 07/11/21 07:20 Dose: 1,150 units/hr, 23 mls/hr Documented by: [id number] Cosigned by: [id number] Titration: 07/11/21 04:01 Dose: 1,150 units/hr, 23 mls/hr Documented by: [id number] Cosigned by: [id number] Titration: 07/10/21 20:10 Dose: 1,250 units/hr, 25 mls/hr Documented by: [id number] Cosigned by: [id number] Titration: 07/10/21 17:29 Dose: 1,000 units/hr, 20 mls/hr Documented by: [id number] Cosigned by: [id number] Titration: 07/10/21 15:27 Dose: 0 units/hr, 0 mls/hr Documented by: [id number] Cosigned by: [id number] Admin: 07/10/21 11:48 Dose: 1,000 units/hr, 20 mls/hr Documented by: [id number] Cosigned by: [id number] Potassium Chloride/Sodium Chloride (Normal Saline W/20 Meq Kcl) 20 meq in 1,000 mls @ 70 mls/hr IV .[id number] [facility] Stop: 08/09/21 09:59 Last Admin: 07/11/21 10:30 Dose: 100 mls/hr Documented by: [id number] Infusion: 07/11/21 09:13 Dose: 100 mls/hr Documented by: [id number] Admin: 07/10/21 23:13 Dose: 100 mls/hr Documented by: [id number] Infusion: 07/10/21 22:23 Dose: 100 mls/hr Documented by: [id number] Admin: 07/10/21 10:25 Dose: 100 mls/hr Documented by: [id number] Ketorolac Tromethamine (Ketorolac Tromethamine 15 Mg/Ml Vial) 15 mg IV Q6H PRN PRN Reason: Moderate Pain Stop: 07/15/21 10:59 Last Admin: 07/11/21 08:57 Dose: 15 mg Documented by: [id number] Admin: 07/11/21 02:41 Dose: 15 mg Documented by: [id number] Admin: 07/10/21 20:27 Dose: 15 mg Documented by: [id number] Lamotrigine (Lamotrigine 100 Mg Tab) 300 mg PO BID [facility] Stop: 08/09/21 09:59 Last Admin: 07/11/21 10:33 Dose: Not Given Documented by: [id number] Admin: 07/10/21 22:11 Dose: Not Given Documented by: [id number] Admin: 07/10/21 12:19 Dose: Not Given Documented by: [id number] Ondansetron HCl (Ondansetron Inj 2 Mg/Ml 2 Ml Vial) 4 mg IV Q6H PRN PRN Reason: Nausea Stop: 08/09/21 08:50 Last Admin: 07/10/21 09:43 Dose: 4 mg Documented by: [id number] Discontinued Medications Heparin Sodium (Porcine) (Heparin Sod (Porcine) 1000 Unit/Ml) 4,500 units IV NOW ONE Stop: 07/10/21 19:31 Last Admin: 07/10/21 20:10 Dose: 4,500 units Documented by: [id number] Cosigned by: [id number] Heparin Sodium/Dextrose (Heparin Iv Adult Wt-Based Low-Dose *No* Bolus Protocol) 1 ea IV Q15M DYANA; Protocol Stop: 07/10/21 10:37 Last Admin: 07/11/21 11:01 Dose: Not Given Documented by: [id number] Admin: 07/10/21 17:51 Dose: 1 ea Documented by: [id number] Admin: 07/10/21 12:18 Dose: Not Given Documented by: [id number] Admin: 07/10/21 12:08 Dose: 1 ea Documented by: [id number] Hydromorphone HCl (Hydromorphone Inj 1 Mg/Ml Syringe) 1 mg IV NOW STA Stop: 07/10/21 00:47 Last Admin: 07/10/21 00:52 Dose: 1 mg Documented by: [id number] Lorazepam (Ativan) 1 mg in 2 mls @ 2 mls/min IV NOW STA Stop: 07/09/21 23:43 Last Admin: 07/09/21 23:47 Dose: 2 mls/min Documented by: [id number] Sodium Chloride (Nss) 500 mls @ 999 mls/hr IV .Q31M ONE Stop: 07/10/21 00:14 Last Infusion: 07/10/21 00:22 Dose: 0 mls/hr Documented by: [id number] Admin: 07/09/21 23:48 Dose: 999 mls/hr Documented by: [id number] Piperacillin Sod/Tazobactam (Sod 4.5 gm/ Dextrose) 120 mls @ 200 mls/hr IV 0930 ONE; Protocol Stop: 07/10/21 10:05 Last Infusion: 07/10/21 11:33 Dose: 0 mls/hr Documented by: [id number] Admin: 07/10/21 10:32 Dose: 200 mls/hr Documented by: [id number] Piperacillin Sod/Tazobactam (Sod 4.5 gm/ Dextrose) 120 mls @ 30 mls/hr IV Q8H DYANA; Protocol Stop: 07/20/21 13:59 Last Admin: 07/11/21 15:23 Dose: 30 mls/hr Documented by: [id number] Infusion: 07/11/21 10:48 Dose: 0 mls/hr Documented by: [id number] Admin: 07/11/21 06:36 Dose: 30 mls/hr Documented by: [id number] Infusion: 07/11/21 03:13 Dose: 0 mls/hr Documented by: [id number] Admin: 07/10/21 23:13 Dose: 30 mls/hr Documented by: [id number] Infusion: 07/10/21 17:50 Dose: 0 mls/hr Documented by: [id number] Admin: 07/10/21 13:17 Dose: 30 mls/hr Documented by: [id number] Magnesium Sulfate/Dextrose (Magnesium Sulfate / D5w) 1 gm in 100 mls @ 50 mls/hr IV Q2H DYANA Stop: 07/11/21 13:29 Last Infusion: 07/11/21 16:05 Dose: 0 mls/hr Documented by: [id number] Admin: 07/11/21 12:55 Dose: 50 mls/hr Documented by: [id number] Infusion: 07/11/21 12:55 Dose: 50 mls/hr Documented by: [id number] Admin: 07/11/21 11:06 Dose: 50 mls/hr Documented by: [id number] Potassium Chloride (K Duncan / Wtr) 10 meq in 100 mls @ 100 mls/hr IV Q1H DYANA Stop: 07/11/21 13:29 Last Infusion: 07/11/21 16:35 Dose: 0 mls/hr Documented by: [id number] Admin: 07/11/21 15:23 Dose: 100 mls/hr Documented by: [id number] Infusion: 07/11/21 14:29 Dose: 0 mls/hr Documented by: [id number] Admin: 07/11/21 13:24 Dose: 100 mls/hr Documented by: [id number] Infusion: 07/11/21 13:21 Dose: 100 mls/hr Documented by: [id number] Admin: 07/11/21 12:21 Dose: 100 mls/hr Documented by: [id number] Infusion: 07/11/21 12:10 Dose: 100 mls/hr Documented by: [id number] Admin: 07/11/21 11:10 Dose: 100 mls/hr Documented by: [id number] Ioversol (Optiray 320 100ml) 95 ml IV ONCE ONE Stop: 07/10/21 01:04 Last Admin: 07/10/21 01:03 Dose: 95 ml Documented by: [id number] Ketorolac Tromethamine (Ketorolac Tromethamine 15 Mg/Ml Vial) 15 mg IV NOW STA Stop: 07/10/21 05:05 Last Admin: 07/10/21 05:13 Dose: 15 mg Documented by: [id number] Ondansetron HCl (Ondansetron Inj 2 Mg/Ml 2 Ml Vial) Confirm Administered Dose 4 mg .ROUTE .STK-MED ONE Stop: 07/09/21 23:38 Last Admin: 07/09/21 23:42 Dose: 4 mg Documented by: [id number] Ondansetron HCl (Ondansetron Inj 2 Mg/Ml 2 Ml Vial) 4 mg IV NOW STA Stop: 07/10/21 00:47 Last Admin: 07/10/21 00:52 Dose: 4 mg Documented by: [id number] Imaging Data Radiologist's Impression: KUB X-Ray 07/10/21 04:16 KUB CLINICAL HISTORY: Evaluate nasogastric tube. COMPARISON STUDY: CT of the abdomen and pelvis performed earlier today. FINDINGS: A large hiatal hernia is noted. Tip of nasogastric tube is within the hiatal hernia on the first 2 images. The nasogastric tube was removed on the third image. Surgical clips within the lower chest and abdomen are incidentally noted. IMPRESSION: Large hiatal hernia. Tip of nasogastric tube within the hiatal hernia on the first two images. Tube subsequently removed on the final image. ACT 112: Negative or not required by law. Electronically signed by: Hair Green M.D. 07/10/2021 6:36 AM Discharge Plan Visit Data Chief Complaint: Abdominal Pain Stated Complaint: ABDOMINAL PAIN/IRREGULAR CARDIAC RHYTHM ED Provider: Chandni Adams Discharge Problem: Small bowel obstruction, Nausea vomiting and diarrhea Patient Disposition: Admitted As Inpatient Discharge Instructions Interventions: ED Discharge Assessment Last Done: 07/10/21 06:53
--- NOTE | 2021-07-10 07:54 | CT Scan Report ---
CT OF THE ABDOMEN AND PELVIS WITH CONTRAST CLINICAL HISTORY: Abdominal pain. Vomiting. Diarrhea. COMPARISON STUDY: CT of the abdomen and pelvis August 21, 2020. TECHNIQUE: Following IV administration of 95 mL of Optiray, axial images of the abdomen and pelvis we re obtained from the lung bases to the proximal femurs. Images were reviewed in the axial, sagittal, and coronal planes. IV contrast was administered without complication. Automated exposure control wa s utilized for the study. A dose lowering technique was utilized adhering to the principles of ALARA . CT DOSE: 1932.96 mGy.cm FINDINGS: This exam is compromised by difficulty positioning. Note is again made of a large hiatal he rnia. The stomach is distended, as before. There are ingested contents within the stomach. The proxim al to mid small is also dilated. A well-defined transition point is not identified. The right colon i s gas-filled and mildly distended. No discrete colonic transition point is identified. Similar findin gs were shown on prior CT of August 21, 2020. No pneumatosis, free air or portal venous gas is presen t. Small bilateral air-fluid levels are also present. There are fat-containing ventral hernias. Right renal lesion represents a hyperdense cyst within correlating with prior CT. Mild biliary ductal dila tation is unchanged and likely related to cholecystectomy. The spleen, adrenal glands and pancreas ar e unremarkable. No acute fracture or suspicious lesion is identified within visualized skeletal struc tures. Postoperative findings within the lumbosacral spine are noted. IMPRESSION: 1. Large hiatal hernia. Distended stomach and proximal to mid small bowel, similar in appearance to p rior examination. No well-defined transition point identified. The findings may reflect an enteritis/ ileus or partial small bowel obstruction. 2. Technically compromised exam given difficulty positioning. ACT 112: Negative or not required by law. Electronically signed by: Hair Green M.D. 07/10/2021 7:53 AM
[2021-07-10] MEDS ORDERED: PIPERACILLIN/TAZOBACTAM 3.375 GM in DEXTROSE 5% 100 ML IV SCH (08:51)
[2021-07-10] MEDS ORDERED: ACETAMINOPHEN 1000 MG/100 ML IV IV PRN (08:51)
[2021-07-10] MEDS ORDERED: PIPERACILL/TAZOBAC CONSULT ACTIVE PRN (08:51)
[2021-07-10] MEDS ORDERED: LAMOTRIGINE 100 MG PO SCH (09:00)
[2021-07-10] MEDS ORDERED: PIPERACILLIN/TAZOBACTAM 4.5 GM in DEXTROSE 5% 100 ML IV ONE (09:30)
[2021-07-10] MEDS: ONDANSETRON INJ 2 MG/ML 2 ML VIAL IV PRN (09:43)
[2021-07-10] MEDS: NSS + 20MEQ KCL 20 MEQ/1,000 ML BAG IV SCH ×2 (10:25→23:13)
[2021-07-10] MEDS: FAMOTIDINE 20 MG in SYRINGE 3 ML IV SCH ×2 (10:30→22:10)
[2021-07-10] MEDS: lamoTRIgine 100 MG TAB PO SCH ×3 (10:31→22:11)
[2021-07-10] MEDS: levETIRAcetam 500 MG in 0.9 % SODIUM CHLORIDE 100 ML IV SCH ×2 (11:34→22:21)
[2021-07-10] MEDS: HEPARIN SODIUM/DEXTROSE 25,000 UNITS/500 ML BAG IV SCH (11:48)
[2021-07-10] MEDS: Heparin IV Adult Wt-Based Low-Dose *NO* Bolus Protocol IV SCH ×3 (12:08→17:51)
[2021-07-10] MEDS: PIPERACILLIN/TAZOBACTAM 4.5 GM in DEXTROSE 5% 100 ML IV SCH ×2 (13:17→23:13)
[2021-07-10 18:52] LABS: Partial Thromboplastin Ratio 1.1; Partial Thromboplastin Time 29.5 Seconds (21.0-31.0)
[2021-07-10] MEDS ORDERED: HEPARIN SOD (PORCINE) 1000 UNIT/ML IV ONE (19:30)
[2021-07-10] MEDS: KETOROLAC TROMETHAMINE 15 MG/ML VIAL IV PRN (20:27)
[2021-07-11] MEDS: KETOROLAC TROMETHAMINE 15 MG/ML VIAL IV PRN ×3 (02:41→20:11)
[2021-07-11 02:58] LABS: Partial Thromboplastin Ratio 2.8
[2021-07-11 03:08] LABS: Partial Thromboplastin Time 73.9 Seconds (21.0-31.0)
[2021-07-11] MEDS: PIPERACILLIN/TAZOBACTAM 4.5 GM in DEXTROSE 5% 100 ML IV SCH ×2 (06:36→15:23)
[2021-07-11 08:21] LABS: Albumin Globulin Ratio 0.9 (0.9-2); Albumin Level 2.9 gm/dl (3.4-5.0); BUN Creatinine Ratio 16.9 (10-20); Bilirubin,Total 0.6 mg/dl (0.2-1); Calcium 8.2 mg/dl (8.5-10.1); Creatinine Clr Calc Pharmacy 97.3 ml/min; Est GFR (African American) 95.4 ml/min; Est GFR (Non-African American) 82.3 ml/min; Globulin 3.4 gm/dl (2.5-4.0); Magnesium 1.6 mg/dl (1.8-2.4); Potassium 3.3 mmol/L (3.5-5.1); Total Protein 6.3 gm/dl (6.4-8.2)
[2021-07-11 08:22] LABS: Basophils # (auto) 0.01 K/uL (0-0.2); Basophils % (auto) 0.1 %; Eosinophils # (auto) 0.66 K/uL (0-0.5); Eosinophils % (auto) 8.3 %; Hematocrit (blood only) 35.4 % (37-47); Hemoglobin 11.2 g/dL (12.0-16.0); Immature Granulocytes # (auto) 0.01 K/uL (0.00-0.02); Immature Granulocytes % (auto) 0.1 %; Lymphocytes # (auto) 1.35 K/uL (1.2-3.4); Lymphocytes % (auto) 16.9 %; Mean Corpuscular Hgb Conc 31.6 g/dL (32-36); Mean Corpuscular Volume 82.1 fL (80-100); Mean Platelet Volume 11.7 fL (7.4-10.4); Monocytes # (auto) 0.69 K/uL (0.11-0.59); Monocytes % (auto) 8.7 %; Neutrophils # (auto) 5.25 K/uL (1.4-6.5); Neutrophils % (auto) 65.9 %; Platelet Count 164 K/uL (130-400); RBC Morphology Unremarkable; RDW Coefficient of Variation 15.8 % (11.5-14.5); RDW Standard Deviation 47.9 fL (36.4-46.3); Red Blood Count 4.31 M/uL (4.2-5.4); White Blood Count 7.97 K/uL (4.8-10.8)
[2021-07-11] MEDS: FAMOTIDINE 20 MG in SYRINGE 3 ML IV SCH ×2 (08:56→20:11)
[2021-07-11] MEDS: NSS + 20MEQ KCL 20 MEQ/1,000 ML BAG IV SCH ×2 (10:30→20:12)
[2021-07-11] MEDS: lamoTRIgine 100 MG TAB PO SCH ×2 (10:33→20:12)
[2021-07-11] MEDS: levETIRAcetam 500 MG in 0.9 % SODIUM CHLORIDE 100 ML IV SCH ×2 (10:43→22:11)
[2021-07-11 10:51] LABS: Partial Thromboplastin Time 77.7 Seconds (21.0-31.0)
[2021-07-11] MEDS: Heparin IV Adult Wt-Based Low-Dose *NO* Bolus Protocol IV SCH ×2 (11:01→20:15)
[2021-07-11] MEDS: MAGNESIUM SULFATE / D5W 1 GM/100 ML BAG IV SCH ×2 (11:06→12:55)
[2021-07-11] MEDS: POTASSIUM CHLORIDE / WTR 10 MEQ/100 ML PLCT IV SCH ×4 (11:10→15:23)
--- NOTE | 2021-07-11 14:21 | XRay Report ---
KUB CLINICAL HISTORY: f/u bowel obstruction COMPARISON STUDY: CT of the abdomen and pelvis and KUB July 10, 2021. FINDINGS: Incidental note is made of surgical clips within the lower chest, abdomen and pelvis as wel l as postoperative findings within the spine. Although sensitivity is diminished on this supine exam, there is no evidence for free air. A few loops of mildly dilated small bowel are noted. This is torie lar to prior CT. IMPRESSION: No significant change in mild small bowel dilatation. This may reflect a partial small b owel obstruction or ileus. ACT 112: Negative or not required by law. Electronically signed by: Hair Green M.D. 07/11/2021 2:19 PM
[2021-07-11] MEDS: HEPARIN SODIUM/DEXTROSE 25,000 UNITS/500 ML BAG IV SCH (14:25)
--- NOTE | 2021-07-11 15:13 | Surgery Consultation ---
Date of Consultation July 11, 2021 Assessment & Plan (1) Hiatal hernia: 71 year-old female with multiple comorbidities with history of hiatal hernia repair 10 years ago presented to ED with abdominal pain, nausea, and vomiting. CT scan of abdomen and pelvis showing 12 cm hiatal hernia with distended stomach containing undigested food, dilated proximal and mid small bowel without discrete transition point (SIMILAR TO PRIOR CT SCAN FINDINGS ON 08/2020). Leukocytosis upon ED evaluation which has now resolved. Afebrile. Abdomen is soft, tender, but no rigidity or guarding. Plan: No acute surgical intervention recommended at this time. Given patient's CT scan findings and similar findings in August of 2020 this may be more of a chronic issue pertaining to her large recurrent hiatal hernia. She is having loose stools so unlikely complete obstruction. Would recommend conservative measures with NPO for bowel rest, IV fluids hydration, pain management as needed, antiemetics as needed. Repeat KUB in am If there is any change in her clinical exam or not clinically improving she would likely need transfer to tertiary center given history of hiatal hernia repair and recurrence, morbid obesity, and comorbidities. will continue to follow (2) Partial small bowel obstruction: ? PSBO vs enteritis vs Ileus having loose stools abdomen is soft , nondistended, no peritonitis plan as above Dr. Blood has seen patient and agrees with above. History of Present Illness Reason for Consultation: SBO Requesting Physician: Karley Salas MD Attending Physician: Karley Salas MD History of Present Illness Andriy is a 71 year-old female with history of renal insufficiency, seizure disorder, morbid obesity, megaloblastic anemia, lumbar canal stenosis, hypertension, hyperlipidemia, COPD, GERD, atrial fibrillation, diverticulitis, hiatal hernia repair (10 years ago), ventral hernia repair, total abdominal hysterectomy with BSO, cholecystectomy who presented to ED via ambulance due to increasing abdominal pain , nausea, and vomiting. Andriy is poor historian but states she has had abdominal pain for past week. States she is also dealing with right hip pain. States she has had difficulty eating foods as food feels like it is getting stuck in her upper throat and she has only been eating popsicles for the past few months. Trying to lose weight. She states she has had diarrhea for the past three days. Er work-up included labs which showed leukocytosis of 14K. CT scan of abdomen and pelvis showing large 12 cm hiatal hernia with distended stomach containing undigested food products, dilated small bowel with no discrete transition point. In review of the chart, patient presented to ED in August of 2020 in which she had similar CT scan findings at the time. NGT insertion was attempted but unsuccessful and felt to be in patients hiatal hernia. She was transferred to tertiary center given large hiatal hernia, possible need for EGD placement of NGT and correction of hiatal hernia (in setting of prior repair) Upon evaluation today, patient states she is still having abdominal pain. Had two loose bowel movements today already. NO further vomiting. Could not remember if NGT was attempted in ED. Allergies Allergy/AdvReac Type Severity Reaction Status Date / Time latex Allergy Intermediate Rash, itchy Verified 07/09/21 23:59 adhesive Allergy Mild ITCHY Verified 07/09/21 23:59 bacitracin Allergy Unknown Unknown Verified 07/09/21 23:59 [From Neosporin ([id number])] neomycin Allergy Unknown Unknown Verified 07/09/21 23:59 [From Neosporin ([id number])] polymyxin B Allergy Unknown Unknown Verified 07/09/21 23:59 [From Neosporin ([id number])] Home Medications Medication Instructions Recorded Confirmed Type magnesium oxide 400 mg (241.3 mg 200 mg PO BID 90 Days #90 tab 07/28/20 07/10/21 Rx magnesium) tablet gabapentin 300 mg capsule 300 mg PO TID 08/21/20 07/10/21 History furosemide 20 mg tablet 40 mg PO QAM #60 tab 09/15/20 07/10/21 Rx albuterol sulfate 90 mcg/actuation 2 puff INHALATION QID PRN #8.5 g 09/16/20 07/10/21 Rx aerosol inhaler Wheeled Walker #1 ea 09/20/20 06/21/21 Rx lamotrigine 100 mg disintegrating 100 mg PO BID #60 tab 09/27/20 07/09/21 Rx tablet levetiracetam 100 mg/mL oral 500 mg PO BID #300 ml 09/27/20 07/10/21 Rx solution Shower Chair #1 ea 10/27/20 06/21/21 Rx apixaban 5 mg tablet (Eliquis) 5 mg PO QAM #90 tab 12/22/20 07/10/21 Rx potassium chloride 10 mEq 20 meq PO QAM #180 tab 04/05/21 07/10/21 Rx tablet,extended release meclizine 12.5 mg tablet 12.5 - 25 mg PO Q6H PRN #30 tab 05/26/21 07/10/21 Rx mirtazapine 15 mg tablet 15 mg PO HS #30 tab 06/21/21 07/10/21 Rx lamotrigine 200 mg disintegrating 200 mg PO BID #60 tab 07/04/21 07/09/21 Rx tablet famotidine 20 mg tablet 20 mg PO HS 07/09/21 07/09/21 History omeprazole 20 mg capsule,delayed 20 mg PO DAILY 07/09/21 07/09/21 History release diclofenac sodium 1 % topical gel 1 ea TOPICAL QID MDD 16 grams 07/10/21 07/10/21 History Patient History Medical History Asthma Atrial fibrillation Degenerative joint disease of right knee Diverticulitis Erosion of stomach determined by endoscopy GERD (gastroesophageal reflux disease) Hiatal hernia History of esophageal dilatation Hypertension Hypokalemia Migraine Osteoarthritis Poor historian Rheumatoid arthritis Seizure Temporomandibular joint disorder Vertigo Surgical History History of appendectomy History of arthroplasty of left knee History of cataract surgery History of cervical discectomy History of colonoscopy History of esophagogastroduodenoscopy (EGD) History of tooth extraction History of total hysterectomy with bilateral salpingo-oophorectomy (BSO) History of total left knee replacement (TKR) History of total right knee replacement (TKR) History of vascular access device S/P cholecystectomy Family History Other Family history non-contributory No family history of adverse response to anesthesia Social History Smoking Status: Never smoker Second Hand Exposure: No; Hx Alcohol Use: No Hx Substance Use: No Preferred Language: Swedish Communication Ability: Effective Visual Impairment: No Limitations Editing Internship Required: No Beliefs That Will Affect Care: None marital status: Single Current Living Situation: Alone current occupational status: retired Feels Safe at Home: Yes Assistive Devices: Walker Physical Exam Constitutional: + morbidly obese; no acute distress and not ill appearing Respiratory: normal respiratory effort; no respiratory distress, no labored breathing and no retractions Gastrointestinal (Abdomen): Inspection/Auscultation: normal bowel sounds, + visible herniation (umbilical hernia) and + abdominal surgical scar (midline laparotomy scar present); abdomen not distended Percussion/Palpation: + abdomen tender and abdomen soft; no guarding and abdomen not rigid Skin: no rashes, warm and dry Psychiatric: Orientation: alert, oriented to person and oriented to place Results & Data ([facility]) Vital Signs (Past 12 Hours) Vital Signs Temp Pulse Pulse Resp BP Pulse Ox 07/11/21 11:13 36.9 C 67 16 90/60 L 99 07/11/21 07:40 102 H 07/11/21 07:37 36.8 C 69 16 134/83 96 Laboratory Results 07/11/21 07/11/21 07/11/21 Range/Units 10:10 06:59 06:59 WBC 7.97 (4.8-10.8) K/uL RBC 4.31 (4.2-5.4) M/uL Hgb 11.2 L (12.0-16.0) g/dL Hct 35.4 L (37-47) % MCV 82.1 (80-100) fL MCH 26.0 (25-34) pg MCHC 31.6 L (32-36) g/dL RDW Std Deviation 47.9 H (36.4-46.3) fL RDW Coeff of Lucio 15.8 H (11.5-14.5) % Plt Count 164 (130-400) K/uL MPV 11.7 H (7.4-10.4) fL Immature Gran % (Auto) 0.1 % Neut % (Auto) 65.9 % Lymph % (Auto) 16.9 % [place] % (Auto) 8.7 % Eos % (Auto) 8.3 % Baso % (Auto) 0.1 % Neut # (Auto) 5.25 (1.4-6.5) K/uL Lymph # (Auto) 1.35 (1.2-3.4) K/uL [place] # (Auto) 0.69 H (0.11-0.59) K/uL Eos # (Auto) 0.66 H (0-0.5) K/uL Baso # (Auto) 0.01 (0-0.2) K/uL Immature Gran # (Auto) 0.01 (0.00-0.02) K/uL RBC Morphology Unremarkable APTT 77.7 H* (21.0-31.0) Seconds PTT Ratio 3.0 Sodium 145 (136-145) mmol/L Potassium 3.3 L (3.5-5.1) mmol/L Chloride 114 H (98-107) mmol/L Carbon Dioxide 21 (21-32) mmol/L Anion Gap 11.0 (3-11) BUN 12 (7-18) mg/dl Creatinine 0.73 D (0.6-1.2) mg/dl Est Cr Clr Drug Dosing 97.3 ml/min Est GFR ( Amer) 95.4 ml/min Est GFR (Non-Af Amer) 82.3 ml/min BUN/Creatinine Ratio 16.9 (10-20) Glucose 100 H (70-99) mg/dl Calcium 8.2 L (8.5-10.1) mg/dl Magnesium 1.6 L (1.8-2.4) mg/dl Total Bilirubin 0.6 (0.2-1) mg/dl AST 29 (15-37) U/L ALT 22 (12-78) U/L Alkaline Phosphatase 106 (45-117) U/L Total Protein 6.3 L (6.4-8.2) gm/dl Albumin 2.9 L (3.4-5.0) gm/dl Globulin 3.4 (2.5-4.0) gm/dl Albumin/Globulin Ratio 0.9 (0.9-2) 07/11/21 07/10/21 Range/Units 02:02 17:14 WBC (4.8-10.8) K/uL RBC (4.2-5.4) M/uL Hgb (12.0-16.0) g/dL Hct (37-47) % MCV (80-100) fL MCH (25-34) pg MCHC (32-36) g/dL RDW Std Deviation (36.4-46.3) fL RDW Coeff of Lucio (11.5-14.5) % Plt Count (130-400) K/uL MPV (7.4-10.4) fL Immature Gran % (Auto) % Neut % (Auto) % Lymph % (Auto) % [place] % (Auto) % Eos % (Auto) % Baso % (Auto) % Neut # (Auto) (1.4-6.5) K/uL Lymph # (Auto) (1.2-3.4) K/uL [place] # (Auto) (0.11-0.59) K/uL Eos # (Auto) (0-0.5) K/uL Baso # (Auto) (0-0.2) K/uL Immature Gran # (Auto) (0.00-0.02) K/uL RBC Morphology APTT 73.9 H* 29.5 (21.0-31.0) Seconds PTT Ratio 2.8 1.1 Sodium (136-145) mmol/L Potassium (3.5-5.1) mmol/L Chloride (98-107) mmol/L Carbon Dioxide (21-32) mmol/L Anion Gap (3-11) BUN (7-18) mg/dl Creatinine (0.6-1.2) mg/dl Est Cr Clr Drug Dosing ml/min Est GFR ( Amer) ml/min Est GFR (Non-Af Amer) ml/min BUN/Creatinine Ratio (10-20) Glucose (70-99) mg/dl Calcium (8.5-10.1) mg/dl Magnesium (1.8-2.4) mg/dl Total Bilirubin (0.2-1) mg/dl AST (15-37) U/L ALT (12-78) U/L Alkaline Phosphatase (45-117) U/L Total Protein (6.4-8.2) gm/dl Albumin (3.4-5.0) gm/dl Globulin (2.5-4.0) gm/dl Albumin/Globulin Ratio (0.9-2) Diagnostic Findings CT OF THE ABDOMEN AND PELVIS WITH CONTRAST CLINICAL HISTORY: Abdominal pain. Vomiting. Diarrhea. COMPARISON STUDY: CT of the abdomen and pelvis August 21, 2020. TECHNIQUE: Following IV administration of 95 mL of Optiray, axial images of the abdomen and pelvis were obtained from the lung bases to the proximal femurs. Images were reviewed in the axial, sagittal, and coronal planes. IV contrast was administered without complication. Automated exposure control was utilized for the study. A dose lowering technique was utilized adhering to the principles of ALARA. CT DOSE: 1932.96 mGy.cm FINDINGS: This exam is compromised by difficulty positioning. Note is again made of a large hiatal hernia. The stomach is distended, as before. There are in gested contents within the stomach. The proximal to mid small is also dilated. A well-defined transition point is not identified. The right colon is gas-filled and mildly distended. No discrete colonic transition point is identified. Similar findings were shown on prior CT of August 21, 2020. No pneumatosis, free air or portal venous gas is present. Small bilateral air-fluid levels are also present. There are fat-containing ventral hernias. Right renal lesion represents a hyperdense cyst within correlating with prior CT. Mild biliary ductal dilatation is unchanged and likely related to cholecystectomy. The spleen, adrenal glands and pancreas are unremarkable. No acute fracture or suspicious lesion is identified within visualized skeletal structures. Postoperative findings within the lumbosacral spine are noted. IMPRESSION: 1. Large hiatal hernia. Distended stomach and proximal to mid small bowel, similar in appearance to prior examination. No well-defined transition point identified. The findings may reflect an enteritis/ileus or partial small bowel obstruction. 2. Technically compromised exam given difficulty positioning.
--- NOTE | 2021-07-11 17:09 | Hospitalist Progress Note ---
Date of Service July 11, 2021 Assessment & Plan (1) Small bowel obstruction: Plan: Small bowel obstruction/hiatal hernia with retained food in stomach/GERD- With a history of such in August 2020 requiring transfer to [facility] where she was treated with NG tube/decompression and had resolution Has a history of hiatal hernia repair at least 10 years ago Was n.p.o. and pain is improving, KUB fairly stable but is passing stool and gas, no nausea/vomiting, no tenderness on examination, does not clinically appear to be obstructed NG tube was never placed and she has been declining placement of such. She is also noted in the past to be quite difficult to place the NG tube Advance diet to clear liquids Repeat KUB in the morning Continue famotidine 20 mg IV every 12 hours Discontinue Zosyn Continue Zofran 4 mg IV every 6 hours as needed Continue NSS + KCl 20 mEq but decreased to 70 mL/Hr General surgery consulted-conservative management and transfer out if worsens due to large hiatal hernia and ventral hernia Follow CBC, CMP, electrolytes and replete as needed (2) Retained food in stomach: Plan: See above (3) Hiatal hernia: Plan: See above (4) GERD (gastroesophageal reflux disease): Plan: Hold oral omeprazole and famotidine Placed on IV famotidine as noted (5) Atrial fibrillation: Plan: Atrial fibrillation-rates remain controlled Continue to hold apixaban in case of need for surgical intervention Continue on heparin drip Hold furosemide and potassium chloride (6) Hypertension: Plan: Holding meds while n.p.o. Blood pressures have been controlled (7) Seizure disorder: Plan: Continue Lamictal dissolvable tablets at current dose Continue Keppra IV 500 mg twice daily while n.p.o. Hold gabapentin while n.p.o. (8) Chronic obstructive pulmonary disease: Plan: Have DuoNebs available to use every 2 hours as needed (9) Depression with anxiety: Plan: Hold mirtazapine while n.p.o. Lorazepam 0.5 mg IV every 6 hours as needed (10) Hypokalemia: Plan: Replace with IV potassium chloride Follow BMP magnesium in the morning (11) Hypomagnesemia: Plan: Replaced with 2 g of IV magnesium sulfate Follow magnesium level in the morning Plan: DVT prophylaxis-Heparin drip Disposition-continued stay Admission and Anticipated Discharge Date Admission Date: July 10, 2021 Subjective Patient reports ongoing upper abdominal pain that is much improved since admission. No nausea or vomiting. She was requesting a diet earlier and was started on clear liquids which she tolerated. She reports that she has been "living on a popsicle diet to lose weight" and was proud of herself that she is lost quite a bit of weight over the last year. She reports that she lives alone and had to call the ambulance because of severe abdominal pain. She is confused at times throughout our conversation and reports that she does not trust doctors and also cannot believe that she has been in the hospital for 2 days-she thinks that she just got here today. When discussing her previous history of bowel obstruction and transfer to [facility], she reports she does not exactly remember why that happened. Denies chest pains or shortness of breath. I discussed her care with the surgeon. Telemetry with atrial fibrillation with rates in the 60s to 80s Review of Systems Review of Systems: All systems reviewed & are unremarkable except as noted in HPI & below She has been having some hip pain for which she is requesting pain medication. Physical Exam Constitutional: WD/WN, vitals as above + morbidly obese Eyes: + anicteric sclerae Neck: trachea midline, no thyromegaly Respiratory: normal respiratory effort, lungs clear to auscultation Cardiovascular: Rate/Rhythm: regular rate and + irregularly irregular Heart Sounds: no murmur Extremities: + edema (Trace pitting edema in legs bilaterally) Chest (Breasts): Chest: normal inspection of chest Gastrointestinal (Abdomen): Inspection/Auscultation: normal bowel sounds and + abdominal surgical incision (RUQ and midline); abdomen not distended Percussion/Palpation: abdomen soft and + hernia (Ventral hernia, reducible); abdomen nontender and no guarding Musculoskeletal: Extremities: extremities normal to inspection; no cyanosis and no clubbing Skin: no rashes, warm and dry Neurologic: moves all extremities and awake; no focal motor deficits Psychiatric: Orientation: alert, oriented to person, oriented to place and cooperative; + not oriented to time Results & Data Results & Data ([facility]) Vital Signs (Past 12 Hours) Vital Signs Temp Pulse Pulse Resp BP Pulse Ox 07/11/21 16:01 36.4 C L 80 20 126/58 L 97 07/11/21 11:13 36.9 C 67 16 90/60 L 99 07/11/21 07:40 102 H 07/11/21 07:37 36.8 C 69 16 134/83 96 Laboratory Results 07/11/21 07/11/21 07/11/21 Range/Units 17:20 10:10 06:59 WBC (4.8-10.8) K/uL RBC (4.2-5.4) M/uL Hgb (12.0-16.0) g/dL Hct (37-47) % MCV (80-100) fL MCH (25-34) pg MCHC (32-36) g/dL RDW Std Deviation (36.4-46.3) fL RDW Coeff of Lucio (11.5-14.5) % Plt Count (130-400) K/uL MPV (7.4-10.4) fL Immature Gran % (Auto) % Neut % (Auto) % Lymph % (Auto) % [place] % (Auto) % Eos % (Auto) % Baso % (Auto) % Neut # (Auto) (1.4-6.5) K/uL Lymph # (Auto) (1.2-3.4) K/uL [place] # (Auto) (0.11-0.59) K/uL Eos # (Auto) (0-0.5) K/uL Baso # (Auto) (0-0.2) K/uL Immature Gran # (Auto) (0.00-0.02) K/uL RBC Morphology APTT 64.8 H* 77.7 H* (21.0-31.0) Seconds PTT Ratio 2.5 3.0 Sodium 145 (136-145) mmol/L Potassium 3.3 L (3.5-5.1) mmol/L Chloride 114 H (98-107) mmol/L Carbon Dioxide 21 (21-32) mmol/L Anion Gap 11.0 (3-11) BUN 12 (7-18) mg/dl Creatinine 0.73 D (0.6-1.2) mg/dl Est Cr Clr Drug Dosing 97.3 ml/min Est GFR ( Amer) 95.4 ml/min Est GFR (Non-Af Amer) 82.3 ml/min BUN/Creatinine Ratio 16.9 (10-20) Glucose 100 H (70-99) mg/dl Calcium 8.2 L (8.5-10.1) mg/dl Magnesium 1.6 L (1.8-2.4) mg/dl Total Bilirubin 0.6 (0.2-1) mg/dl AST 29 (15-37) U/L ALT 22 (12-78) U/L Alkaline Phosphatase 106 (45-117) U/L Total Protein 6.3 L (6.4-8.2) gm/dl Albumin 2.9 L (3.4-5.0) gm/dl Globulin 3.4 (2.5-4.0) gm/dl Albumin/Globulin Ratio 0.9 (0.9-2) 07/11/21 07/11/21 Range/Units 06:59 02:02 WBC 7.97 (4.8-10.8) K/uL RBC 4.31 (4.2-5.4) M/uL Hgb 11.2 L (12.0-16.0) g/dL Hct 35.4 L (37-47) % MCV 82.1 (80-100) fL MCH 26.0 (25-34) pg MCHC 31.6 L (32-36) g/dL RDW Std Deviation 47.9 H (36.4-46.3) fL RDW Coeff of Lucio 15.8 H (11.5-14.5) % Plt Count 164 (130-400) K/uL MPV 11.7 H (7.4-10.4) fL Immature Gran % (Auto) 0.1 % Neut % (Auto) 65.9 % Lymph % (Auto) 16.9 % [place] % (Auto) 8.7 % Eos % (Auto) 8.3 % Baso % (Auto) 0.1 % Neut # (Auto) 5.25 (1.4-6.5) K/uL Lymph # (Auto) 1.35 (1.2-3.4) K/uL [place] # (Auto) 0.69 H (0.11-0.59) K/uL Eos # (Auto) 0.66 H (0-0.5) K/uL Baso # (Auto) 0.01 (0-0.2) K/uL Immature Gran # (Auto) 0.01 (0.00-0.02) K/uL RBC Morphology Unremarkable APTT 73.9 H* (21.0-31.0) Seconds PTT Ratio 2.8 Sodium (136-145) mmol/L Potassium (3.5-5.1) mmol/L Chloride (98-107) mmol/L Carbon Dioxide (21-32) mmol/L Anion Gap (3-11) BUN (7-18) mg/dl Creatinine (0.6-1.2) mg/dl Est Cr Clr Drug Dosing ml/min Est GFR ( Amer) ml/min Est GFR (Non-Af Amer) ml/min BUN/Creatinine Ratio (10-20) Glucose (70-99) mg/dl Calcium (8.5-10.1) mg/dl Magnesium (1.8-2.4) mg/dl Total Bilirubin (0.2-1) mg/dl AST (15-37) U/L ALT (12-78) U/L Alkaline Phosphatase (45-117) U/L Total Protein (6.4-8.2) gm/dl Albumin (3.4-5.0) gm/dl Globulin (2.5-4.0) gm/dl Albumin/Globulin Ratio (0.9-2) PG Care Time/CCT Total # of Minutes Spent Total Time Spent with Patient: Total time spent is greater than 50% in coordination of care (as documented) at patient's floor/unit and/or counseling patient: Coding Level of Care Code 23835 Subseq Hosp Care Lvl 3 Diagnoses Small bowel obstruction K56.609 Retained food in stomach K31.89 Hiatal hernia K44.9 GERD (gastroesophageal reflux disease) K21.0 Esophagitis presence: with esophagitis Atrial fibrillation I48.2 Atrial fibrillation type: chronic Hypertension I10 Hypertension type: essential hypertension Seizure disorder G40.909 Chronic obstructive pulmonary disease J44.9 COPD type: unspecified COPD Depression with anxiety F41.8 Hypokalemia E87.6 Hypomagnesemia E83.42 (1) Atrial fibrillation Atrial fibrillation type: chronic Qualified Code(s): I48.2 - Chronic atrial fibrillation (2) Chronic obstructive pulmonary disease COPD type: unspecified COPD Qualified Code(s): J44.9 - Chronic obstructive pulmonary disease, unspecified (3) GERD (gastroesophageal reflux disease) Esophagitis presence: with esophagitis Qualified Code(s): K21.0 - Gastro-esophageal reflux disease with esophagitis (4) Hypertension Hypertension type: essential hypertension Qualified Code(s): I10 - Essential (primary) hypertension
[2021-07-11 17:51] LABS: Partial Thromboplastin Ratio 2.5
[2021-07-11 18:05] LABS: Partial Thromboplastin Time 64.8 Seconds (21.0-31.0)
[2021-07-12] MEDS: KETOROLAC TROMETHAMINE 15 MG/ML VIAL IV PRN ×3 (03:37→16:11)
[2021-07-12 08:43] LABS: Basophils # (auto) 0.01 K/uL (0-0.2); Basophils % (auto) 0.2 %; Eosinophils # (auto) 0.64 K/uL (0-0.5); Eosinophils % (auto) 11.6 %; Hematocrit (blood only) 33.7 % (37-47); Hemoglobin 10.7 g/dL (12.0-16.0); Immature Granulocytes # (auto) 0.01 K/uL (0.00-0.02); Immature Granulocytes % (auto) 0.2 %; Lymphocytes # (auto) 1.34 K/uL (1.2-3.4); Lymphocytes % (auto) 24.2 %; Mean Corpuscular Hemoglobin 25.8 pg (25-34); Mean Corpuscular Hgb Conc 31.8 g/dL (32-36); Mean Corpuscular Volume 81.2 fL (80-100); Mean Platelet Volume 11.5 fL (7.4-10.4); Monocytes # (auto) 0.51 K/uL (0.11-0.59); Monocytes % (auto) 9.2 %; Neutrophils # (auto) 3.03 K/uL (1.4-6.5); Neutrophils % (auto) 54.6 %; Platelet Count 142 K/uL (130-400); RDW Coefficient of Variation 15.9 % (11.5-14.5); RDW Standard Deviation 47.6 fL (36.4-46.3); Red Blood Count 4.15 M/uL (4.2-5.4); White Blood Count 5.54 K/uL (4.8-10.8)
[2021-07-12 08:57] LABS: Partial Thromboplastin Ratio 2.6
[2021-07-12 09:06] LABS: Partial Thromboplastin Time 69.1 Seconds (21.0-31.0)
[2021-07-12 09:07] LABS: Albumin Globulin Ratio 0.8 (0.9-2); Albumin Level 2.9 gm/dl (3.4-5.0); BUN Creatinine Ratio 8.2 (10-20); Bilirubin,Total 0.4 mg/dl (0.2-1); Calcium 8.6 mg/dl (8.5-10.1); Creatinine Clr Calc Pharmacy 91.5 ml/min; Est GFR (African American) 89.4 ml/min; Est GFR (Non-African American) 77.1 ml/min; Globulin 3.4 gm/dl (2.5-4.0); Magnesium 2.3 mg/dl (1.8-2.4); Potassium 3.7 mmol/L (3.5-5.1); Total Protein 6.3 gm/dl (6.4-8.2)
[2021-07-12] MEDS: NSS + 20MEQ KCL 20 MEQ/1,000 ML BAG IV SCH (09:25)
[2021-07-12] MEDS: levETIRAcetam 500 MG in 0.9 % SODIUM CHLORIDE 100 ML IV SCH (09:25)
[2021-07-12] MEDS: lamoTRIgine 100 MG TAB PO SCH ×2 (09:26→20:17)
[2021-07-12] MEDS: FAMOTIDINE 20 MG in SYRINGE 3 ML IV SCH (09:29)
[2021-07-12] MEDS: HEPARIN SODIUM/DEXTROSE 25,000 UNITS/500 ML BAG IV SCH ×2 (09:34→13:34)
--- NOTE | 2021-07-12 10:47 | XRay Report ---
KUB HISTORY: Follow-up small bowel obstruction. Generalized abdominal pain. COMPARISON: KUB 07/11/2021. FINDINGS: Multiple surgical clips seen within the epigastric region. There is L5-S1 posterior decompr ession fusion hardware again noted. There are dilated gas-filled loops of small bowel within the left side the abdomen which have progressed in the interval. These measure up to 4.2 cm in diameter, prev ious measuring 3.5 cm. A hiatus hernia is again noted. There is gas and stool seen within the colon. The stomach is mildly gas-filled distended. Severe osteoporosis of the right hip. There is possible s uperimposed avascular necrosis. No significant femoral head collapse. No renal calculi. No ureteral calculi. No pneumoperitoneum or pneumatosis. IMPRESSION: 1. Interval progression of the gas-filled dilated loops of small bowel compared to the prior study. T here is also gas and stool seen throughout the colon. Therefore, this could represent an ileus versus progressive partial small bowel obstruction. 2. Hiatus hernia, unchanged. 3. Additional findings as described above. ACT 112: Negative or not required by law. Electronically signed by: Drew Noyola M.D. 07/12/2021 10:46 AM
[2021-07-12] MEDS: GABAPENTIN 300 MG CAP PO SCH ×2 (13:19→20:15)
[2021-07-12] MEDS: FUROSEMIDE 40 MG TAB PO SCH (13:19)
[2021-07-12] MEDS: POTASSIUM CHLORIDE CRTAB 20 MEQ TABCR PO SCH (13:19)
[2021-07-12] MEDS: ACETAMINOPHEN 500 MG TAB PO SCH ×2 (13:19→20:12)
[2021-07-12] MEDS: APIXABAN 5 MG TABLET PO SCH ×2 (13:20→21:55)
[2021-07-12] MEDS: DICLOFENAC SOD 1% GEL 100 GM TUBE EXT SCH ×3 (13:20→20:11)
--- NOTE | 2021-07-12 13:22 | Surgery Progress Note ---
Date of Service July 12, 2021 Assessment & Plan (1) Hiatal hernia: Plan: 71 year-old female with multiple comorbidities with history of hiatal hernia repair 10 years ago presented to ED with abdominal pain, nausea, and vomiting. CT scan of abdomen and pelvis showing 12 cm hiatal hernia with distended stomach containing undigested food, dilated proximal and mid small bowel without discrete transition point (SIMILAR TO PRIOR CT SCAN FINDINGS ON 08/2020). Leukocytosis upon ED evaluation which has now resolved. Afebrile. Abdomen is soft, tender, but no rigidity or guarding. KUB today showing dilated SB loops in LUQ but gas is seen in the colon. Plan: No acute surgical intervention recommended at this time. Given patient's CT scan findings and similar findings in August of 2020 this may be more of a chronic issue pertaining to her large recurrent hiatal hernia. She is having loose stools and KUB today showing gas within colon so likely partial obstruction. Would recommend conservative measures with IV fluids hydration, pain management as needed, antiemetics as needed. Okay for clear liquids If there is any change in her clinical exam or not clinically improving she would likely need transfer to tertiary center given history of hiatal hernia repair and recurrence, morbid obesity, and comorbidities. She likely needs outpatient evaluation with a surgeon who performs hiatal hernia repair given her chronic abdominal pain and dysphagia with any solids will continue to follow (2) Partial small bowel obstruction: Plan: Likely chronic in nature secondary to adhesions plan as above Dr. Blood has seen patient and agrees with above. Admission and Anticipated Discharge Date Admission Date: July 10, 2021 Subjective still having abdominal pain and right hip pain, mostly complains of right hip pain becomes tearful because of the chronic pain but comfortably sitting up in bed with clear liquid tray half eaten no nausea or vomiting no loose stools stoday Physical Exam Constitutional: + morbidly obese; no acute distress and not ill appearing Gastrointestinal (Abdomen): Inspection/Auscultation: abdomen normal to inspection; abdomen not distended Percussion/Palpation: + abdomen tender (upper midline and LUQ), abdomen soft and + hernia (umbical and ventral hernia soft and reducible); no guarding and abdomen not rigid Skin: no rashes, warm and dry Results & Data ([facility]) Vital Signs (Past 12 Hours) Vital Signs Temp Pulse Resp BP BP Pulse Ox 07/12/21 10:49 77 18 126/82 90 07/12/21 07:26 36.4 C L 72 18 142/72 H 91 07/12/21 03:56 36.5 C 66 18 139/88 98 Laboratory Results 07/12/21 07/12/21 07/12/21 Range/Units 08:22 08:22 08:22 WBC 5.54 (4.8-10.8) K/uL RBC 4.15 L (4.2-5.4) M/uL Hgb 10.7 L (12.0-16.0) g/dL Hct 33.7 L (37-47) % MCV 81.2 (80-100) fL MCH 25.8 (25-34) pg MCHC 31.8 L (32-36) g/dL RDW Std Deviation 47.6 H (36.4-46.3) fL RDW Coeff of Lucio 15.9 H (11.5-14.5) % Plt Count 142 (130-400) K/uL MPV 11.5 H (7.4-10.4) fL Immature Gran % (Auto) 0.2 % Neut % (Auto) 54.6 % Lymph % (Auto) 24.2 % [place] % (Auto) 9.2 % Eos % (Auto) 11.6 % Baso % (Auto) 0.2 % Neut # (Auto) 3.03 (1.4-6.5) K/uL Lymph # (Auto) 1.34 (1.2-3.4) K/uL [place] # (Auto) 0.51 (0.11-0.59) K/uL Eos # (Auto) 0.64 H (0-0.5) K/uL Baso # (Auto) 0.01 (0-0.2) K/uL Immature Gran # (Auto) 0.01 (0.00-0.02) K/uL APTT 69.1 H* (21.0-31.0) Seconds PTT Ratio 2.6 Sodium 145 (136-145) mmol/L Potassium 3.7 (3.5-5.1) mmol/L Chloride 116 H (98-107) mmol/L Carbon Dioxide 23 (21-32) mmol/L Anion Gap 7.0 (3-11) BUN 6 L D (7-18) mg/dl Creatinine 0.77 (0.6-1.2) mg/dl Est Cr Clr Drug Dosing 91.5 ml/min Est GFR ( Amer) 89.4 ml/min Est GFR (Non-Af Amer) 77.1 ml/min BUN/Creatinine Ratio 8.2 L (10-20) Glucose 85 (70-99) mg/dl Calcium 8.6 (8.5-10.1) mg/dl Magnesium 2.3 (1.8-2.4) mg/dl Total Bilirubin 0.4 (0.2-1) mg/dl AST 20 (15-37) U/L ALT 19 (12-78) U/L Alkaline Phosphatase 89 (45-117) U/L Total Protein 6.3 L (6.4-8.2) gm/dl Albumin 2.9 L (3.4-5.0) gm/dl Globulin 3.4 (2.5-4.0) gm/dl Albumin/Globulin Ratio 0.8 L (0.9-2) 07/11/21 Range/Units 17:20 WBC (4.8-10.8) K/uL RBC (4.2-5.4) M/uL Hgb (12.0-16.0) g/dL Hct (37-47) % MCV (80-100) fL MCH (25-34) pg MCHC (32-36) g/dL RDW Std Deviation (36.4-46.3) fL RDW Coeff of Lucio (11.5-14.5) % Plt Count (130-400) K/uL MPV (7.4-10.4) fL Immature Gran % (Auto) % Neut % (Auto) % Lymph % (Auto) % [place] % (Auto) % Eos % (Auto) % Baso % (Auto) % Neut # (Auto) (1.4-6.5) K/uL Lymph # (Auto) (1.2-3.4) K/uL [place] # (Auto) (0.11-0.59) K/uL Eos # (Auto) (0-0.5) K/uL Baso # (Auto) (0-0.2) K/uL Immature Gran # (Auto) (0.00-0.02) K/uL APTT 64.8 H* (21.0-31.0) Seconds PTT Ratio 2.5 Sodium (136-145) mmol/L Potassium (3.5-5.1) mmol/L Chloride (98-107) mmol/L Carbon Dioxide (21-32) mmol/L Anion Gap (3-11) BUN (7-18) mg/dl Creatinine (0.6-1.2) mg/dl Est Cr Clr Drug Dosing ml/min Est GFR ( Amer) ml/min Est GFR (Non-Af Amer) ml/min BUN/Creatinine Ratio (10-20) Glucose (70-99) mg/dl Calcium (8.5-10.1) mg/dl Magnesium (1.8-2.4) mg/dl Total Bilirubin (0.2-1) mg/dl AST (15-37) U/L ALT (12-78) U/L Alkaline Phosphatase (45-117) U/L Total Protein (6.4-8.2) gm/dl Albumin (3.4-5.0) gm/dl Globulin (2.5-4.0) gm/dl Albumin/Globulin Ratio (0.9-2) Diagnostic Findings KUB HISTORY: Follow-up small bowel obstruction. Generalized abdominal pain. COMPARISON: KUB 07/11/2021. FINDINGS: Multiple surgical clips seen within the epigastric region. There is L5-S1 posterior decompression fusion hardware again noted. There are dilated gas-filled loops of small bowel within the left side the abdomen which have progressed in the interval. These measure up to 4.2 cm in diameter, previous measuring 3.5 cm. A hiatus hernia is again noted. There is gas and stool seen within the colon. The stomach is mildly gas-filled distended. Severe osteoporosis of the right hip. There is possible superimposed avascular necrosis. No significant femoral head collapse. No renal calculi. No ureteral calculi. No pneumoperitoneum or pneumatosis. IMPRESSION: 1. Interval progression of the gas-filled dilated loops of small bowel compared to the prior study. There is also gas and stool seen throughout the colon. Therefore, this could represent an ileus versus progressive partial small bowel obstruction. 2. Hiatus hernia, unchanged. 3. Additional findings as described above.
[2021-07-12] MEDS: traMADol HCL 50 MG TABLET PO PRN (13:27)
[2021-07-12] MEDS: THIAMINE HCL 200 MG in SODIUM CHLORIDE 0.9% 50 ML IV SCH (13:28)
[2021-07-12] MEDS: ALBUT/IPRATROP 3MG/0.5MG NEB 3 ML VIAL NEB PRN (13:51)
--- NOTE | 2021-07-12 16:55 | Hospitalist Progress Note ---
Date of Service July 12, 2021 Assessment & Plan (1) Small bowel obstruction: Plan: Small bowel obstruction/hiatal hernia with retained food in stomach/GERD- With a history of such in August 2020 requiring transfer to [facility] where she was treated with NG tube/decompression and had resolution Has a history of hiatal hernia repair at least 10 years ago Was n.p.o. and pain is improving, KUB fairly stable today showing possible small bowel obstruction but there is air in the colon so more likely ileus Has been passing stool and gas, no nausea/vomiting, no tenderness on examination, does not clinically appear to be obstructed NG tube was never placed and she has been declining placement of such. She is also noted in the past to be quite difficult to place the NG tube Advance diet to full liquids No need to repeat x-ray unless has worsening pain or nausea/vomiting Change IV famotidine to p.o. Continue Zofran 4 mg IV every 6 hours as needed nausea Discontinue IV fluids General surgery consulted-conservative management and transfer out if worsens due to large hiatal hernia and ventral hernia -Convert all IV meds back to p.o. home meds Follow CBC, CMP, electrolytes and replete as needed (2) Hiatal hernia: Plan: See above (3) GERD (gastroesophageal reflux disease): Plan: Restart p.o. omeprazole and famotidine (4) Atrial fibrillation: Plan: Atrial fibrillation-rates remain controlled Restart home apixaban discontinue heparin drip Restart home furosemide and potassium chloride (5) Hypertension: Plan: Blood pressures have been controlled Restart home furosemide (6) Seizure disorder: Plan: Continue Lamictal dissolvable tablets at current dose Convert Keppra IV 500 mg twice daily up to p.o. dosing Restart home gabapentin now the tolerating p.o. (7) Chronic obstructive pulmonary disease: Plan: Have DuoNebs available to use every 2 hours as needed (8) Depression with anxiety: Plan: Restart mirtazapine (9) Hypokalemia: Plan: Replaced and resolved Restart home potassium supplement along with Lasix Follow BMP and magnesium in the morning (10) Hypomagnesemia: Plan: Replaced and resolved Restart home p.o. supplement (11) Hip pain, right: Plan: With known severe OA of the right hip Seen by orthopedics in the past but determined not to be a surgical candidate due to morbid obesity Restart home gabapentin now that is tolerating p.o. Start Voltaren gel 4 times daily to the hip Add tramadol as needed (12) Sciatica: Plan: Long history of such and has history of lumbar spine fusion With worsening right lower extremity radicular symptoms and numbness in the last 2 days likely exacerbated by not receiving her gabapentin while n.p.o. with bowel obstruction Restart gabapentin Tramadol as needed PT/OT Plan: DVT prophylaxis-Heparin drip converting to Eliquis Disposition-continued stay, but likely discharge home tomorrow if pain in right hip improved. She is refusing rehab but does have caregivers every day of the week for 6 hours and will have visiting nurse, PT/OT. Case management has arranged for a rolling walker Admission and Anticipated Discharge Date Admission Date: July 10, 2021 Subjective Patient tearful complaining of lower back pain and right hip pain that radiates down her right leg as well as some numbness in the leg. She reports this been ongoing for a long time, but much worse in the last 2 days. Of note, she has not received her usual gabapentin the last 2 days while she was n.p.o. She also reports that she was told she needed surgery on the hip but that she was not a good candidate for surgery and I confirmed this and reviewed the records-was told needed bariatric surgery prior to hip replacement. She has had a history of lumbar spine fusion with hardware but cannot remember where she had surgery done. When I asked her about her abdominal pain, she stated "oh yeah I always have that." Abdominal pain is mild at this point and she is tolerating liquids diet. No loose stools today, no nausea or vomiting. She refuses to go to rehab as recommended by occupational therapy today. Telemetry with atrial fibrillation with rates in the 80s to 90s during the day and 50s to 60s overnight Review of Systems Review of Systems: All systems reviewed & are unremarkable except as noted in HPI & below Physical Exam Constitutional: WD/WN, vitals as above + morbidly obese Eyes: + anicteric sclerae Neck: trachea midline, no thyromegaly Respiratory: normal respiratory effort, lungs clear to auscultation Cardiovascular: Rate/Rhythm: regular rate and + irregularly irregular Heart Sounds: no murmur Extremities: + edema (Trace pitting edema in legs bilaterally) Chest (Breasts): Chest: normal inspection of chest Gastrointestinal (Abdomen): Inspection/Auscultation: normal bowel sounds and + abdominal surgical incision (RUQ and midline); abdomen not distended Percussion/Palpation: abdomen soft and + hernia (Ventral hernia, reducible); abdomen nontender and no guarding Musculoskeletal: Extremities: extremities normal to inspection; no cyanosis and no clubbing Positive tenderness to palpation over right hip Significant tenderness to palpation with light touch of the entire right lower extremity Could not tolerate straight leg raise or any manipulation of the leg [place] of the right lower extremity negative Skin: no rashes, warm and dry Neurologic: moves all extremities and awake; no focal motor deficits Psychiatric: Orientation: alert, oriented to person, oriented to place and cooperative; + not oriented to time Results & Data Results & [facility] ([facility]) Vital Signs (Past 12 Hours) Vital Signs Temp Pulse Pulse Resp BP Pulse Ox 07/12/21 15:34 36.8 C 80 18 128/86 94 07/12/21 15:29 91 H 07/12/21 13:52 73 18 99 07/12/21 10:49 77 18 126/82 90 07/12/21 07:26 36.4 C L 72 18 142/72 H 91 Laboratory Results 07/12/21 07/12/21 07/12/21 Range/Units 08:22 08:22 08:22 WBC 5.54 (4.8-10.8) K/uL RBC 4.15 L (4.2-5.4) M/uL Hgb 10.7 L (12.0-16.0) g/dL Hct 33.7 L (37-47) % MCV 81.2 (80-100) fL MCH 25.8 (25-34) pg MCHC 31.8 L (32-36) g/dL RDW Std Deviation 47.6 H (36.4-46.3) fL RDW Coeff of Lucio 15.9 H (11.5-14.5) % Plt Count 142 (130-400) K/uL MPV 11.5 H (7.4-10.4) fL Immature Gran % (Auto) 0.2 % Neut % (Auto) 54.6 % Lymph % (Auto) 24.2 % [place] % (Auto) 9.2 % Eos % (Auto) 11.6 % Baso % (Auto) 0.2 % Neut # (Auto) 3.03 (1.4-6.5) K/uL Lymph # (Auto) 1.34 (1.2-3.4) K/uL [place] # (Auto) 0.51 (0.11-0.59) K/uL Eos # (Auto) 0.64 H (0-0.5) K/uL Baso # (Auto) 0.01 (0-0.2) K/uL Immature Gran # (Auto) 0.01 (0.00-0.02) K/uL APTT 69.1 H* (21.0-31.0) Seconds PTT Ratio 2.6 Sodium 145 (136-145) mmol/L Potassium 3.7 (3.5-5.1) mmol/L Chloride 116 H (98-107) mmol/L Carbon Dioxide 23 (21-32) mmol/L Anion Gap 7.0 (3-11) BUN 6 L D (7-18) mg/dl Creatinine 0.77 (0.6-1.2) mg/dl Est Cr Clr Drug Dosing 91.5 ml/min Est GFR ( Amer) 89.4 ml/min Est GFR (Non-Af Amer) 77.1 ml/min BUN/Creatinine Ratio 8.2 L (10-20) Glucose 85 (70-99) mg/dl Calcium 8.6 (8.5-10.1) mg/dl Magnesium 2.3 (1.8-2.4) mg/dl Total Bilirubin 0.4 (0.2-1) mg/dl AST 20 (15-37) U/L ALT 19 (12-78) U/L Alkaline Phosphatase 89 (45-117) U/L Total Protein 6.3 L (6.4-8.2) gm/dl Albumin 2.9 L (3.4-5.0) gm/dl Globulin 3.4 (2.5-4.0) gm/dl Albumin/Globulin Ratio 0.8 L (0.9-2) PG Care Time/CCT Total # of Minutes Spent Total Time Spent with Patient: Total time spent is greater than 50% in coordination of care (as documented) at patient's floor/unit and/or counseling patient: Coding Level of Care Code 79283 Subseq Hosp Care Lvl 3 Diagnoses Small bowel obstruction K56.609 Hiatal hernia K44.9 GERD (gastroesophageal reflux disease) K21.0 Esophagitis presence: with esophagitis Atrial fibrillation I48.2 Atrial fibrillation type: chronic Hypertension I10 Hypertension type: essential hypertension Seizure disorder G40.909 Chronic obstructive pulmonary disease J44.9 COPD type: unspecified COPD Depression with anxiety F41.8 Hypokalemia E87.6 Hypomagnesemia E83.42 Hip pain, right M25.551 Sciatica M54.30 (1) Atrial fibrillation Atrial fibrillation type: chronic Qualified Code(s): I48.2 - Chronic atrial fibrillation (2) Chronic obstructive pulmonary disease COPD type: unspecified COPD Qualified Code(s): J44.9 - Chronic obstructive pulmonary disease, unspecified (3) GERD (gastroesophageal reflux disease) Esophagitis presence: with esophagitis Qualified Code(s): K21.0 - Gastro- esophageal reflux disease with esophagitis (4) Hypertension Hypertension type: essential hypertension Qualified Code(s): I10 - Essential (primary) hypertension
[2021-07-12] MEDS: HYDROmorphone INJ 0.5 MG/0.5 ML SYR IV PRN (20:11)
[2021-07-12] MEDS: FAMOTIDINE 20 MG TAB PO SCH (20:14)
[2021-07-12] MEDS: MAGNESIUM OXIDE 400 MG TAB PO SCH (20:14)
[2021-07-12] MEDS: MIRTAZAPINE TAB 15 MG TAB PO SCH (20:58)
[2021-07-13] MEDS: MECLIZINE 12.5 MG TAB PO PRN ×2 (01:44→13:51)
[2021-07-13] MEDS: traMADol HCL 50 MG TABLET PO PRN ×2 (01:51→09:51)
[2021-07-13] MEDS: ACETAMINOPHEN 500 MG TAB PO SCH ×3 (06:29→20:46)
[2021-07-13 08:16] LABS: Basophils # (auto) 0.02 K/uL (0-0.2); Basophils % (auto) 0.3 %; Eosinophils # (auto) 0.78 K/uL (0-0.5); Eosinophils % (auto) 13.4 %; Hematocrit (blood only) 32.8 % (37-47); Hemoglobin 10.5 g/dL (12.0-16.0); Lymphocytes # (auto) 1.33 K/uL (1.2-3.4); Lymphocytes % (auto) 22.9 %; Mean Corpuscular Hemoglobin 26.3 pg (25-34); Mean Corpuscular Volume 82.2 fL (80-100); Mean Platelet Volume 11.3 fL (7.4-10.4); Monocytes % (auto) 6.9 %; Neutrophils # (auto) 3.28 K/uL (1.4-6.5); Neutrophils % (auto) 56.5 %; Platelet Count 143 K/uL (130-400); RDW Coefficient of Variation 16.2 % (11.5-14.5); RDW Standard Deviation 49.3 fL (36.4-46.3); Red Blood Count 3.99 M/uL (4.2-5.4); White Blood Count 5.81 K/uL (4.8-10.8)
[2021-07-13 08:50] LABS: BUN Creatinine Ratio 7.3 (10-20); Calcium 8.3 mg/dl (8.5-10.1); Creatinine Clr Calc Pharmacy 96.4 ml/min; Est GFR (African American) 93.8 ml/min; Est GFR (Non-African American) 80.9 ml/min; Magnesium 2.1 mg/dl (1.8-2.4); Potassium 3.4 mmol/L (3.5-5.1)
[2021-07-13 08:53] LABS: Albumin Globulin Ratio 0.9 (0.9-2); Bilirubin,Total 0.4 mg/dl (0.2-1); Globulin 3.5 gm/dl (2.5-4.0); Total Protein 6.5 gm/dl (6.4-8.2)
--- NOTE | 2021-07-13 09:35 | Electrocardiogram Report ---
Test Reason : Blood Pressure : / mmHG Vent. Rate : 127 BPM Atrial Rate : 136 BPM P-R Int : 000 ms QRS Dur : 078 ms QT Int : 210 ms P-R-T Axes : 000 -17 242 degrees QTc Int : 305 ms Poor data quality, interpretation may be adversely affected Atrial fibrillation with rapid ventricular response Abnormal ECG When compared with ECG of 21-AUG-2020 22:54, ST more depressed Anterior leads Confirmed by Elvin Ricks [id number]) on 07/13/2021 9:35:17 AM Referred By: REFERRED SELF Confirmed By:Elvin Ricks
[2021-07-13] MEDS: FUROSEMIDE 40 MG TAB PO SCH (09:38)
[2021-07-13] MEDS: GABAPENTIN 300 MG CAP PO SCH ×3 (09:38→20:46)
[2021-07-13] MEDS: APIXABAN 5 MG TABLET PO SCH ×2 (09:38→20:46)
[2021-07-13] MEDS: POTASSIUM CHLORIDE CRTAB 20 MEQ TABCR PO SCH (09:39)
[2021-07-13] MEDS: PANTOprazole 40 MG TAB PO SCH (09:39)
[2021-07-13] MEDS: MAGNESIUM OXIDE 400 MG TAB PO SCH ×2 (09:39→20:45)
[2021-07-13] MEDS: OLANZapine ZYDIS 5 MG ORALLY DIS. TAB PO PRN (09:40)
[2021-07-13] MEDS: THIAMINE HCL 200 MG in SODIUM CHLORIDE 0.9% 50 ML IV SCH (09:40)
[2021-07-13] MEDS: DICLOFENAC SOD 1% GEL 100 GM TUBE EXT SCH ×4 (09:46→20:48)
[2021-07-13] MEDS: ALBUT/IPRATROP 3MG/0.5MG NEB 3 ML VIAL NEB PRN (10:58)
[2021-07-13] MEDS: lamoTRIgine 100 MG TAB PO SCH ×2 (11:09→20:47)
[2021-07-13] MEDS: KETOROLAC TROMETHAMINE 15 MG/ML VIAL IV PRN (11:12)
--- NOTE | 2021-07-13 12:59 | Surgery Progress Note ---
Date of Service July 13, 2021 Assessment & Plan (1) Hiatal hernia: Plan: 71 year-old female with multiple comorbidities with history of hiatal hernia repair 10 years ago presented to ED with abdominal pain, nausea, and vomiting. CT scan of abdomen and pelvis showing 12 cm hiatal hernia with distended stomach containing undigested food, dilated proximal and mid small bowel without discrete transition point (SIMILAR TO PRIOR CT SCAN FINDINGS ON 08/2020). Leukocytosis upon ED evaluation which has now resolved. Plan: No acute surgical intervention recommended at this time. Given patient's CT scan findings and similar findings in August of 2020 this may be more of a chronic issue pertaining to her large recurrent hiatal hernia. She is having loose stools and KUB yesterday showing gas within colon so likely partial obstruction vs chronic Ileus. Would recommend conservative measures. She likely needs outpatient evaluation with a surgeon who performs hiatal hernia repair given her chronic abdominal pain and dysphagia with any solids Our services signing off, please call with questions or concerns (2) Partial small bowel obstruction: Plan: Likely chronic in nature and secondary to adhesions plan as above Dr. Blood has seen patient and agrees with above. Admission and Anticipated Discharge Date Admission Date: July 10, 2021 Subjective no abdominal pain, no nausea or vomiting tolerating liquids no flatus today feels a fullness in her chest Physical Exam Constitutional: + morbidly obese; no acute distress and not ill appearing Respiratory: normal respiratory effort; no respiratory distress, no labored breathing and no retractions Gastrointestinal (Abdomen): Inspection/Auscultation: + abdomen distended (mild), + visible herniation (umbilical and ventral), + abdominal surgical scar (mildine laparotomy incision) and + hypoactive bowel sounds; + abnormal bowel sounds Percussion/Palpation: abdomen soft and + hernia (umbilical and ventral, reducible); abdomen nontender, no guarding and abdomen not rigid Skin: no rashes, warm and dry Results & Data ([facility]) Vital Signs (Past 12 Hours) Vital Signs Temp Pulse Pulse Resp BP BP Pulse Ox 07/13/21 11:49 36.3 C L 69 20 139/95 99 07/13/21 11:17 61 07/13/21 10:59 73 18 96 07/13/21 06:31 36.7 C 87 15 123/78 96 Laboratory Results 07/13/21 07/13/21 07/13/21 Range/Units 07:42 07:42 07:42 WBC 5.81 (4.8-10.8) K/uL RBC 3.99 L (4.2-5.4) M/uL Hgb 10.5 L (12.0-16.0) g/dL Hct 32.8 L (37-47) % MCV 82.2 (80-100) fL MCH 26.3 (25-34) pg MCHC 32.0 (32-36) g/dL RDW Std Deviation 49.3 H (36.4-46.3) fL RDW Coeff of Lucio 16.2 H (11.5-14.5) % Plt Count 143 (130-400) K/uL MPV 11.3 H (7.4-10.4) fL Immature Gran % (Auto) 0.0 % Neut % (Auto) 56.5 % Lymph % (Auto) 22.9 % [place] % (Auto) 6.9 % Eos % (Auto) 13.4 % Baso % (Auto) 0.3 % Neut # (Auto) 3.28 (1.4-6.5) K/uL Lymph # (Auto) 1.33 (1.2-3.4) K/uL [place] # (Auto) 0.40 (0.11-0.59) K/uL Eos # (Auto) 0.78 H (0-0.5) K/uL Baso # (Auto) 0.02 (0-0.2) K/uL Immature Gran # (Auto) 0.00 (0.00-0.02) K/uL Sodium 145 (136-145) mmol/L Potassium 3.4 L (3.5-5.1) mmol/L Chloride 116 H (98-107) mmol/L Carbon Dioxide 23 (21-32) mmol/L Anion Gap 7.0 (3-11) BUN 5 L (7-18) mg/dl Creatinine 0.74 (0.6-1.2) mg/dl Est Cr Clr Drug Dosing 96.4 ml/min Est GFR ( Amer) 93.8 ml/min Est GFR (Non-Af Amer) 80.9 ml/min BUN/Creatinine Ratio 7.3 L (10-20) Glucose 84 (70-99) mg/dl Calcium 8.3 L (8.5-10.1) mg/dl Magnesium 2.1 (1.8-2.4) mg/dl Total Bilirubin 0.4 (0.2-1) mg/dl AST 19 (15-37) U/L ALT 19 (12-78) U/L Alkaline Phosphatase 85 (45-117) U/L Total Protein 6.5 (6.4-8.2) gm/dl Albumin 3.0 L (3.4-5.0) gm/dl Globulin 3.5 (2.5-4.0) gm/dl Albumin/Globulin Ratio 0.9 (0.9-2) Whole Bld Vitamin B1 Pending
[2021-07-13] MEDS: HYDROmorphone INJ 0.5 MG/0.5 ML SYR IV PRN (13:13)
[2021-07-13 13:51] LABS: Appearance Urine Clear (Clear); Bilirubin Urine Negative (Negative); Blood Urine Negative (Negative); Color Urine Yellow; Glucose Urine UA Negative (Negative); Ketones Urine Negative (Negative); Leukocyte Esterase Urine Negative (Negative); Nitrite Urine Negative (Negative); Protein Urine Negative (Negative); Specific Gravity Urine 1.004 (1.000-1.030); Urobilinogen Urine Negative (Negative); pH Urine 5.5 (4.5-7.5)
--- NOTE | 2021-07-13 14:46 | Hospitalist Progress Note ---
Date of Service July 13, 2021 Assessment & Plan (1) Small bowel obstruction: Plan: Small bowel obstruction/hiatal hernia with retained food in stomach/GERD- With a history of such in August 2020 requiring transfer to [facility] where she was treated with NG tube/decompression and had resolution Has a history of hiatal hernia repair at least 10 years ago Pain is improved and seems to be at her usual chronic low level KUB fairly stable showing possible small bowel obstruction but there is air in the colon so more likely ileus and she is not having any nausea and is tolerating p.o. Has been passing stool and gas, no nausea/vomiting, no tenderness on ex amination, does not clinically appear to be obstructed NG tube was never placed and she has been declining placement of such. She is also noted in the past to be quite difficult to place the NG tube Continue full liquids diet which she says is what she does all the time at home anyway No need to repeat x-ray unless has worsening pain or nausea/vomiting Continue famotidine p.o. Continue Zofran 4 mg IV every 6 hours as needed for nausea General surgery consulted-conservative management and transfer out if worsens due to large hiatal hernia and ventral hernia (2) Hiatal hernia: Plan: See above (3) GERD (gastroesophageal reflux disease): Plan: Continue PPI and famotidine (4) Atrial fibrillation: Plan: Atrial fibrillation-rates remain controlled Continue apixaban (5) Hypertension: Plan: Blood pressures have been controlled Continue home furosemide and potassium chloride (6) Seizure disorder: Plan: Continue Lamictal and Keppra as well as gabapentin (7) Chronic obstructive pulmonary disease: Plan: No acute issues Continue DuoNebs available to use every 2 hours as needed (8) Depression with anxiety: Plan: With quite labile emotions here-mildly confused at times Is often tearful and frustrated with her multiple medical issues Continue mirtazapine (9) Hypokalemia: Plan: Replaced again today Continue home potassium supplement along with Lasix Follow BMP and magnesium in the morning (10) Hypomagnesemia: Plan: Replaced and resolved Continue home magnesium p.o. supplement (11) Hip pain, right: Plan: With known severe OA of the right hip Seen by orthopedics in the past but determined not to be a surgical candidate due to morbid obesity Not improving with Voltaren gel, IV Dilaudid, IV Toradol, p.o. tramadol, and restarting home gabapentin Concerned that all of these medications are making her more confused -Discontinue IV Dilaudid, discontinue IV Toradol as she has had numerous doses and could be nephrotoxic -Continue Voltaren gel, Tylenol scheduled, and as needed tramadol Needs physical therapy (12) Sciatica: Plan: Long history of such and has history of lumbar spine fusion With worsening right lower extremity radicular symptoms and numbness in the first 2 days of hospitalization likely exacerbated by not receiving her gabapentin while n.p.o. with bowel obstruction Restarted gabapentin and seems to be somewhat improved Continue tramadol as needed PT/OT (13) Dizziness: Plan: New complaint on 07/13, although she reports a long history of such Meclizine as needed Plan: DVT prophylaxis- Eliquis Disposition-continued stay, but likely discharge home tomorrow if dizziness is improved. PT/OT recommending rehab, but she is adamantly refusing rehab. She does have caregivers every day of the week for 6 hours and will have visiting nurse, PT/OT. Case management has arranged for a rolling walker Admission and Anticipated Discharge Date Admission Date: July 10, 2021 Subjective Today patient is tearful reporting that she has been feeling dizzy all day. She continues to have significant pain in her right hip. She is tearful at times and states "I am sorry. I feel like you hate me. I will never go in a senior care, I would rather ." She reports she feels that if she went to a senior care, she would give up on life and just . She was able to walk about 20 feet with physical therapy but became very unsteady and had to be seated. Later in the day after I saw her, she tried to get out of bed on her own and had a fall down onto her knees but did not suffer any injuries. She also reports that 2 weeks ago she had blood coming out of her ear. She has a chronic issue with intermittent dizziness. She reports her abdominal pain is about the same as it always is but she is tolerating p.o. Telemetry with atrial fibrillation with rates anywhere from 30s overnight to 140s during the day Review of Systems Review of Systems: All systems reviewed & are unremarkable except as noted in HPI & below Physical Exam Constitutional: WD/WN, vitals as above + morbidly obese Eyes: + anicteric sclerae ENMT: Ears: + unable to visualize TM (On left due to cerumen impaction, right TM normal); no EAC abnormality Neck: trachea midline, no thyromegaly Respiratory: normal respiratory effort, lungs clear to auscultation Cardiovascular: Rate/Rhythm: regular rate and + irregularly irregular Heart Sounds: no murmur Extremities: + edema (Trace pitting edema in legs bilaterally) Chest (Breasts): Chest: normal inspection of chest Gastrointestinal (Abdomen): Inspection/Auscultation: normal bowel sounds and + abdominal surgical incision (RUQ and midline); abdomen not distended Percussion/Palpation: abdomen soft and + hernia (Ventral hernia, reducible); abdomen nontender and no guarding Musculoskeletal: Extremities: extremities normal to inspection; no cyanosis and no clubbing Skin: no rashes, warm and dry Neurologic: moves all extremities and awake; no focal motor deficits Psychiatric: Orientation: alert, oriented to person, oriented to place and cooperative; + not oriented to time Affect: + tearful affect Results & Data Results & Data ([facility]) Vital Signs (Past 12 Hours) Vital Signs Temp Pulse Pulse Resp BP BP Pulse Ox 07/13/21 11:49 36.3 C L 69 20 139/95 99 07/13/21 11:17 61 07/13/21 10:59 73 18 96 07/13/21 06:31 36.7 C 87 15 123/78 96 Laboratory Results 07/13/21 07/13/21 07/13/21 Range/Units Unknown 07:42 07:42 WBC 5.81 (4.8-10.8) K/uL RBC 3.99 L (4.2-5.4) M/uL Hgb 10.5 L (12.0-16.0) g/dL Hct 32.8 L (37-47) % MCV 82.2 (80-100) fL MCH 26.3 (25-34) pg MCHC 32.0 (32-36) g/dL RDW Std Deviation 49.3 H (36.4-46.3) fL RDW Coeff of Lucio 16.2 H (11.5-14.5) % Plt Count 143 (130-400) K/uL MPV 11.3 H (7.4-10.4) fL Immature Gran % (Auto) 0.0 % Neut % (Auto) 56.5 % Lymph % (Auto) 22.9 % Island % (Auto) 6.9 % Eos % (Auto) 13.4 % Baso % (Auto) 0.3 % Neut # (Auto) 3.28 (1.4-6.5) K/uL Lymph # (Auto) 1.33 (1.2-3.4) K/uL Island # (Auto) 0.40 (0.11-0.59) K/uL Eos # (Auto) 0.78 H (0-0.5) K/uL Baso # (Auto) 0.02 (0-0.2) K/uL Immature Gran # (Auto) 0.00 (0.00-0.02) K/uL Sodium 145 (136-145) mmol/L Potassium 3.4 L (3.5-5.1) mmol/L Chloride 116 H (98-107) mmol/L Carbon Dioxide 23 (21-32) mmol/L Anion Gap 7.0 (3-11) BUN 5 L (7-18) mg/dl Creatinine 0.74 (0.6-1.2) mg/dl Est Cr Clr Drug Dosing 96.4 ml/min Est GFR ( Amer) 93.8 ml/min Est GFR (Non-Af Amer) 80.9 ml/min BUN/Creatinine Ratio 7.3 L (10-20) Glucose 84 (70-99) mg/dl Calcium 8.3 L (8.5-10.1) mg/dl Magnesium 2.1 (1.8-2.4) mg/dl Total Bilirubin 0.4 (0.2-1) mg/dl AST 19 (15-37) U/L ALT 19 (12-78) U/L Alkaline Phosphatase 85 (45-117) U/L Total Protein 6.5 (6.4-8.2) gm/dl Albumin 3.0 L (3.4-5.0) gm/dl Globulin 3.5 (2.5-4.0) gm/dl Albumin/Globulin Ratio 0.9 (0.9-2) Whole Bld Vitamin B1 Urine Color Yellow Urine Appearance Clear (Clear) Urine pH 5.5 (4.5-7.5) Ur Specific [place] 1.004 (1.000-1.030) Urine Protein Negative (Negative) Urine Glucose (UA) Negative (Negative) Urine Ketones Negative (Negative) Urine Blood Negative (Negative) Urine Nitrite Negative (Negative) Urine Bilirubin Negative (Negative) Urine Urobilinogen Negative (Negative) Ur Leukocyte Esterase Negative (Negative) 07/13/21 Range/Units 07:42 WBC (4.8-10.8) K/uL RBC (4.2-5.4) M/uL Hgb (12.0-16.0) g/dL Hct (37-47) % MCV (80-100) fL MCH (25-34) pg MCHC (32-36) g/dL RDW Std Deviation (36.4-46.3) fL RDW Coeff of Lucio (11.5-14.5) % Plt Count (130-400) K/uL MPV (7.4-10.4) fL Immature Gran % (Auto) % Neut % (Auto) % Lymph % (Auto) % Island % (Auto) % Eos % (Auto) % Baso % (Auto) % Neut # (Auto) (1.4-6.5) K/uL Lymph # (Auto) (1.2-3.4) K/uL Island # (Auto) (0.11-0.59) K/uL Eos # (Auto) (0-0.5) K/uL Baso # (Auto) (0-0.2) K/uL Immature Gran # (Auto) (0.00-0.02) K/uL Sodium (136-145) mmol/L Potassium (3.5-5.1) mmol/L Chloride (98-107) mmol/L Carbon Dioxide (21-32) mmol/L Anion Gap (3-11) BUN (7-18) mg/dl Creatinine (0.6-1.2) mg/dl Est Cr Clr Drug Dosing ml/min Est GFR ( Amer) ml/min Est GFR (Non-Af Amer) ml/min BUN/Creatinine Ratio (10-20) Glucose (70-99) mg/dl Calcium (8.5-10.1) mg/dl Magnesium (1.8-2.4) mg/dl Total Bilirubin (0.2-1) mg/dl AST (15-37) U/L ALT (12-78) U/L Alkaline Phosphatase (45-117) U/L Total Protein (6.4-8.2) gm/dl Albumin (3.4-5.0) gm/dl Globulin (2.5-4.0) gm/dl Albumin/Globulin Ratio (0.9-2) Whole Bld Vitamin B1 Pending Urine Color Urine Appearance (Clear) Urine pH (4.5-7.5) Ur Specific [place] (1.000-1.030) Urine Protein (Negative) Urine Glucose (UA) (Negative) Urine Ketones (Negative) Urine Blood (Negative) Urine Nitrite (Negative) Urine Bilirubin (Negative) Urine Urobilinogen (Negative) Ur Leukocyte Esterase (Negative) PG Care Time/CCT Total # of Minutes Spent Total Time Spent with Patient: Total time spent is greater than 50% in coordination of care (as documented) at patient's floor/unit and/or counseling patient: Coding Level of Care Code 17113 Subseq Hosp Care Lvl 3 Diagnoses Small bowel obstruction K56.609 Hiatal hernia K44.9 GERD (gastroesophageal reflux disease) K21.0 Esophagitis presence: with esophagitis Atrial fibrillation I48.2 Atrial fibrillation type: chronic Hypertension I10 Hypertension type: essential hypertension Seizure disorder G40.909 Chronic obstructive pulmonary disease J44.9 COPD type: unspecified COPD Depression with anxiety F41.8 Hypokalemia E87.6 Hypomagnesemia E83.42 Hip pain, right M25.551 Sciatica M54.30 Dizziness R42 (1) Atrial fibrillation Atrial fibrillation type: chronic Qualified Code(s): I48.2 - Chronic atrial fibrillation (2) Chronic obstructive pulmonary disease COPD type: unspecified COPD Qualified Code(s): J44.9 - Chronic obstructive pulmonary disease, unspecified (3) GERD (gastroesophageal reflux disease) Esophagitis presence: with esophagitis Qualified Code(s): K21.0 - Gastro-esophageal reflux disease with esophagitis (4) Hypertension Hypertension type: essential hypertension Qualified Code(s): I10 - Essential (primary) hypertension
[2021-07-13] MEDS: MIRTAZAPINE TAB 15 MG TAB PO SCH (20:47)
[2021-07-13] MEDS: FAMOTIDINE 20 MG TAB PO SCH (20:47)
[2021-07-14] MEDS: OLANZapine ZYDIS 5 MG ORALLY DIS. TAB PO PRN (03:26)
[2021-07-14] MEDS: ACETAMINOPHEN 500 MG TAB PO SCH ×3 (05:01→20:50)
[2021-07-14] MEDS ORDERED: OLANZapine ZYDIS 5 MG ORALLY DIS. TAB PO PRN (08:52)
[2021-07-14] MEDS: THIAMINE HCL 200 MG in SODIUM CHLORIDE 0.9% 50 ML IV SCH (09:14)
[2021-07-14] MEDS: APIXABAN 5 MG TABLET PO SCH ×2 (09:17→20:42)
[2021-07-14] MEDS: MECLIZINE 12.5 MG TAB PO PRN ×2 (09:17→20:43)
[2021-07-14] MEDS: POTASSIUM CHLORIDE CRTAB 20 MEQ TABCR PO SCH (09:17)
[2021-07-14] MEDS: lamoTRIgine 100 MG TAB PO SCH ×2 (09:18→20:44)
[2021-07-14] MEDS: MAGNESIUM OXIDE 400 MG TAB PO SCH (09:18)
[2021-07-14] MEDS: PANTOprazole 40 MG TAB PO SCH (09:19)
[2021-07-14] MEDS: DICLOFENAC SOD 1% GEL 100 GM TUBE EXT SCH ×5 (09:19→20:45)
[2021-07-14] MEDS: FUROSEMIDE 40 MG TAB PO SCH (09:19)
[2021-07-14] MEDS: GABAPENTIN 300 MG CAP PO SCH ×3 (09:19→20:43)
--- NOTE | 2021-07-14 13:10 | Hospitalist Progress Note ---
Date of Service July 14, 2021 Assessment & Plan (1) Delirium: Plan: Has become severely agitated in the last 24 hours. This is most likely secondary to hospital delirium plus the use of opioids and tramadol for her right hip pain and abdominal pain. Dilaudid was discontinued yesterday, will now discontinue tramadol use Supportive care, redirection We will give Zyprexa 2.5 mg p.o. twice daily as needed and IM Haldol if she will not take the oral Zyprexa Discussed all care with her niece on the phone who is very close with her-the niece will not be able to come in for support person today, but perhaps tomorrow if this is ongoing Not medically stable for discharge to home (2) Small bowel obstruction: Plan: Small bowel obstruction/hiatal hernia with retained food in stomach/GERD- With a history of such in August 2020 requiring transfer to [facility] where she was treated with NG tube/decompression and had resolution Has a history of hiatal hernia repair at least 10 years ago Pain is improved and seems to be at her usual chronic low level KUB fairly stable showing possible small bowel obstruction but there is air in the colon so more likely ileus and she is not having any nausea and is tolerating p.o. Has been passing stool and gas, no nausea/vomiting, no tenderness on examination, does not clinically appear to be obstructed NG tube was never placed and she has been declining placement of such. She is also noted in the past to be quite difficult to place the NG tube Continue full liquids diet which she says is what she does all the time at home anyway No need to repeat x-ray unless has worsening pain or nausea/vomiting Continue famotidine p.o. Continue Zofran 4 mg IV every 6 hours as needed for nausea General surgery consulted-conservative management and transfer out if worsens due to large hiatal hernia and ventral hernia (3) Hiatal hernia: Plan: See above (4) GERD (gastroesophageal reflux disease): Plan: Continue PPI and famotidine (5) Atrial fibrillation: Plan: Atrial fibrillation-rates remain controlled Continue apixaban (6) Hypertension: Plan: Blood pressures have been controlled Continue home furosemide and potassium chloride (7) Seizure disorder: Plan: Continue Lamictal and Keppra as well as gabapentin (8) Chronic obstructive pulmonary disease: Plan: No acute issues Continue DuoNebs available to use every 2 hours as needed (9) Depression with anxiety: Plan: With quite labile emotions here-mildly confused at times Is often tearful and frustrated with her multiple medical issues, now with severe agitation and delirium as above Continue mirtazapine (10) Hypokalemia: Plan: Replaced and resolved Continue home potassium supplement along with Lasix (11) Hypomagnesemia: Plan: Replaced and resolved Continue home magnesium p.o. supplement (12) Hip pain, right: Plan: With known severe OA of the right hip Seen by orthopedics in the past but determined not to be a surgical candidate due to morbid obesity Not improving with Voltaren gel, IV Dilaudid, IV Toradol, p.o. tramadol, and restarting home gabapentin Concerned that all of these medications are making her more confused -Discontinued IV Dilaudid, discontinue IV Toradol as she has had numerous doses and could be nephrotoxic -Continue Voltaren gel, Tylenol scheduled -Discontinue tramadol as above for delirium (13) Sciatica: Plan: Long history of such and has history of lumbar spine fusion With worsening right lower extremity radicular symptoms and numbness in the first 2 days of hospitalization likely exacerbated by not receiving her gabapentin while n.p.o. with bowel obstruction Restarted gabapentin and seems to be somewhat improved Discontinue tramadol as above for delirium PT/OT (14) Dizziness: Plan: New complaint on 07/13, although she reports a long history of such Meclizine as needed was given but will now be discontinued as this may be contributing to delirium Seems to be resolved Plan: DVT prophylaxis- Eliquis Disposition-continued stay, with severe agitation delirium PT/OT recommending rehab, but she is adamantly refusing rehab. She does have caregivers every day of the week for 6 hours and will have visiting nurse, PT/OT. Case management has arranged for a rolling walker I discussed her care at length with her niece, Mariel, on the phone Admission and Anticipated Discharge Date Admission Date: July 10, 2021 Subjective Patient severely agitated today. Continues to repeat that she thinks we have kidnapped her and that everyone is trying to kill her. She then states over and over that she is going to and that she saw God today. She is extremely paranoid and has been combative at times throughout the day. She did receive some Zyprexa and then later in the day some Haldol that did seem to help her sleep a bit. After trying to calm her down somewhat, she was able to tell me that she was in the [facility] when she knew that she was in [place], [place]. She knew the year and the month. She was angry and yelling at times and continued to accuse me of trying to kill her and kidnapping her. Fortunately, her niece had called in and I called her back and spoke with her at length. The niece reports that the patient has had issues with confusion with taking pain medicine in the past. Her tramadol and Dilaudid have both now been discontinued. Her niece reports that at baseline, she is circumlocutious. Telemetry with atrial fibrillation and PVCs with rates in the 90s to 100s. Review of Systems Review of Systems: All systems reviewed & are unremarkable except as noted in HPI & below She reports her usual chronic abdominal pain and pain in the right hip, but does not seem to focus on them like usual. She does deny dizziness today. Physical Exam Constitutional: WD/WN, vitals as above + morbidly obese Eyes: + anicteric sclerae Neck: trachea midline, no thyromegaly Respiratory: normal respiratory effort, lungs clear to auscultation Cardiovascular: Rate/Rhythm: regular rate and + irregularly irregular Heart Sounds: no murmur Extremities: + edema (Trace pitting edema in legs bilaterally) Chest (Breasts): Chest: normal inspection of chest Gastrointestinal (Abdomen): Inspection/Auscultation: normal bowel sounds and + abdominal surgical incision (RUQ and midline); abdomen not distended Percussion/Palpation: abdomen soft and + hernia (Ventral hernia, reducible); abdomen nontender and no guarding Musculoskeletal: Extremities: extremities normal to inspection; no cyanosis and no clubbing Skin: no rashes, warm and dry Neurologic: moves all extremities and awake; no focal motor deficits Psychiatric: Orientation: alert, oriented to person, oriented to place, oriented to time and + guarded; + uncooperative Apperance: + disheveled Eye Contact: good eye contact Motor Behavior: + psychomotor agitation Speech: + loud speech Affect: + angry affect Mood: + angry mood Thought Process: + confabulations Thought Content: + preoccupation, + paranoid and + self deprecation Hallucinations: + auditory hallucinations Insight: + im paired insight Results & Data Results & Data ([facility]) Vital Signs (Past 12 Hours) Vital Signs Temp Pulse Pulse Resp BP BP Pulse Ox 07/14/21 11:45 37.0 C 124 H 20 164/71 H 92 07/14/21 11:13 65 07/14/21 07:49 36.4 C L 117 H 20 92/67 L 97 07/14/21 03:57 35.7 C L 83 18 145/82 H 96 07/14/21 01:51 76 PG Care Time/CCT Total # of Minutes Spent Total Time Spent with Patient: Total time spent is greater than 50% in coordination of care (as documented) at patient's floor/unit and/or counseling patient: Coding Level of Care Code 96472 Subseq Hosp Care Lvl 3 Diagnoses Small bowel obstruction K56.609 Hiatal hernia K44.9 GERD (gastroesophageal reflux disease) K21.0 Esophagitis presence: with esophagitis Atrial fibrillation I48.2 Atrial fibrillation type: chronic Hypertension I10 Hypertension type: essential hypertension Seizure disorder G40.909 Chronic obstructive pulmonary disease J44.9 COPD type: unspecified COPD Depression with anxiety F41.8 Hypokalemia E87.6 Hypomagnesemia E83.42 Hip pain, right M25.551 Sciatica M54.30 Dizziness R42 Delirium R41.0 (1) Atrial fibrillation Atrial fibrillation type: chronic Qualified Code(s): I48.2 - Chronic atrial fibrillation (2) Chronic obstructive pulmonary disease COPD type: unspecified COPD Qualified Code(s): J44.9 - Chronic obstructive pulmonary disease, unspecified (3) GERD (gastroesophageal reflux disease) Esophagitis presence: with esophagitis Qualified Code(s): K21.0 - Gastro- esophageal reflux disease with esophagitis (4) Hypertension Hypertension type: essential hypertension Qualified Code(s): I10 - Essential (primary) hypertension
[2021-07-14] MEDS: MIRTAZAPINE TAB 15 MG TAB PO SCH (20:44)
[2021-07-14] MEDS: HALOPERIDOL LACTATE 5 MG/ML 1 ML VIAL IM PRN (20:47)
[2021-07-14] MEDS: FAMOTIDINE 20 MG TAB PO SCH (20:47)
[2021-07-14] MEDS ORDERED: HALOPERIDOL LACTATE 5 MG/ML 1 ML VIAL IM STA (23:24)
[2021-07-15] MEDS: ACETAMINOPHEN 500 MG TAB PO SCH ×3 (05:34→21:34)
[2021-07-15] MEDS: HALOPERIDOL LACTATE 5 MG/ML 1 ML VIAL IM PRN (07:27)
[2021-07-15] MEDS ORDERED: HALOPERIDOL LACTATE 5 MG/ML 1 ML VIAL IM STA (07:51)
[2021-07-15] MEDS: APIXABAN 5 MG TABLET PO SCH ×2 (09:37→21:27)
[2021-07-15] MEDS: FUROSEMIDE 40 MG TAB PO SCH (09:37)
[2021-07-15] MEDS: GABAPENTIN 300 MG CAP PO SCH ×3 (09:37→21:26)
[2021-07-15] MEDS: lamoTRIgine 100 MG TAB PO SCH ×2 (09:38→21:28)
[2021-07-15] MEDS: PANTOprazole 40 MG TAB PO SCH (09:38)
[2021-07-15] MEDS: POTASSIUM CHLORIDE CRTAB 20 MEQ TABCR PO SCH (09:38)
[2021-07-15] MEDS: DICLOFENAC SOD 1% GEL 100 GM TUBE EXT SCH ×4 (09:38→21:27)
[2021-07-15] MEDS: THIAMINE HCL 200 MG in SODIUM CHLORIDE 0.9% 50 ML IV SCH (09:38)
[2021-07-15] MEDS ORDERED: HALOPERIDOL LACTATE 5 MG/ML 1 ML VIAL IM PRN (10:32)
--- NOTE | 2021-07-15 10:41 | Hospitalist Progress Note ---
Date of Service July 15, 2021 Assessment & Plan (1) Delirium: Plan: Become severely agitated on 07/13-07/14, requiring several doses of IM Haldol This is most likely secondary to hospital delirium plus the use of opioids and tramadol for her right hip pain and abdominal pain. Dilaudid and tramadol have since been discontinued Now much improved with Haldol, reassurance, 1:1 sitter, rest, in new room without a roommate and by the window to see daylight Continue Supportive care, redirection Make Zyprexa 5 mg p.o. twice daily scheduled nd continue IM Haldol prn severe agitation -ensure bowels moving, eating and drinking, activity increased, out of bed to chair and ambulating with assistance (2) Small bowel obstruction: Plan: Small bowel obstruction/hiatal hernia with retained food in stomach/GERD- With a history of such in August 2020 requiring transfer to [facility] where she was treated with NG tube/decompression and had resolution Has a history of hiatal hernia repair at least 10 years ago Pain is improved and seems to be at her usual chronic low level KUB fairly stable showing possible small bowel obstruction but there is air in the colon so more likely ileus and she is not having any nausea and is tolerating p.o. Has been passing stool and gas, no nausea/vomiting, no tenderness on examination, does not clinically appear to be obstructed NG tube was never placed and she has been declining placement of such. She is also noted in the past to be quite difficult to place the NG tube Continue full liquids diet which she says is what she does all the time at home anyway No need to repeat x-ray unless has worsening pain or nausea/vomiting Continue famotidine p.o. Continue Zofran 4 mg IV every 6 hours as needed for nausea General surgery consulted-conservative management and transfer out if worsens due to large hiatal hernia and ventral hernia (3) Hiatal hernia: Plan: See above (4) GERD (gastroesophageal reflux disease): Plan: Continue PPI and famotidine (5) Atrial fibrillation: Plan: Atrial fibrillation-rates remain controlled except when severely agitated Continue apixaban (6) Hypertension: Plan: Blood pressures have been controlled Continue home furosemide and potassium chloride (7) Seizure disorder: Plan: Continue Lamictal and Keppra as well as gabapentin (8) Chronic obstructive pulmonary disease: Plan: No acute issues Continue DuoNebs available to use every 2 hours as needed (9) Depression with anxiety: Plan: With quite labile emotions here-mildly confused at times Is often tearful and frustrated with her multiple medical issues, now with severe agitation and delirium as above Continue mirtazapine (10) Hypokalemia: Plan: Replaced and resolved Continue home potassium supplement along with Lasix (11) Hypomagnesemia: Plan: Replaced and resolved Continue home magnesium p.o. supplement (12) Hip pain, right: Plan: With known severe OA of the right hip Seen by orthopedics in the past but determined not to be a surgical candidate due to morbid obesity Not improving with Voltaren gel, IV Dilaudid, IV Toradol, p.o. tramadol, and restarting home gabapentin Concerned that all of these medications are making her more confused -Discontinued IV Dilaudid, discontinue IV Toradol as she has had numerous doses and could be nephrotoxic -Continue Voltaren gel, Tylenol scheduled -Discontinued tramadol as above for delirium (13) Sciatica: Plan: Long history of such and has history of lumbar spine fusion With worsening right lower extremity radicular symptoms and numbness in the first 2 days of hospitalization likely exacerbated by not receiving her gabapentin while n.p.o. with bowel obstruction Restarted gabapentin and seems to be somewhat improved Discontinue tramadol as above for delirium PT/OT (14) Dizziness: Plan: New complaint on 07/13, although she reports a long history of such Meclizine as needed was given but will now be discontinued as this may be contributing to delirium Seems to be resolved Plan: DVT prophylaxis- Eliquis Disposition-continued stay, with severe agitation delirium PT/OT recommending rehab, but she is adamantly refusing rehab prior to when delirium started. She does have caregivers every day of the week for 6 hours and will have visiting nurse, PT/OT. Case management has arranged for a rolling walker Will reassess PT status when delirium improved Admission and Anticipated Discharge Date Admission Date: July 10, 2021 Subjective Pt was severely agitated again overnight and was combative, hitting nurses, screaming. Was given IM Haldol last night and this AM, was in soft restraints overnight. Now with a 1:1 and doing much better, ate breakfast, was OOB to a chair, ambulated to bedside commode and urinated. She was resting when I saw her and was calm but answered my questions appropriately but drifted back to sleep. When asked about pain, she reports "I've learned to live with it." Discussed care with RN at length. Tele with Afib, rates 70s-140s with agitation QT normal Review of Systems Review of Systems: All systems reviewed & are unremarkable except as noted in HPI & below Physical Exam Constitutional: WD/WN, vitals as above + morbidly obese Eyes: + anicteric sclerae Neck: trachea midline, no thyromegaly Respiratory: normal respiratory effort, lungs clear to auscultation Cardiovascular: Rate/Rhythm: regular rate and + irregularly irregular Heart Sounds: no murmur Extremities: + edema (Trace pitting edema in legs bilaterally) Chest (Breasts): Chest: normal inspection of chest Gastrointestinal (Abdomen): Inspection/Auscultation: normal bowel sounds; abdomen not distended Percussion/Palpation: abdomen soft and + hernia (Ventral hernia, reducible); abdomen nontender and no guarding Musculoskeletal: Extremities: extremities normal to inspection; no cyanosis and no clubbing Skin: no rashes, warm and dry Neurologic: moves all extremities and awake; no focal motor deficits Psychiatric: Orientation: + not alert (sleeping but wakes up easily) Results & Data Results & Data ([facility]) Vital Signs (Past 12 Hours) Vital Signs Temp Pulse Resp BP Pulse Ox 07/14/21 23:28 36.7 C 89 18 117/73 94 PG Care Time/CCT Total # of Minutes Spent Total Time Spent with Patient: Total time spent is greater than 50% in coordination of care (as documented) at patient's floor/unit and/or counseling patient: Coding Level of Care Code 63618 Subseq Hosp Care Lvl 2 Diagnoses Delirium R41.0 Small bowel obstruction K56.609 Hiatal hernia K44.9 GERD (gastroesophageal reflux disease) K21.0 Esophagitis presence: with esophagitis Atrial fibrillation I48.2 Atrial fibrillation type: chronic Hypertension I10 Hypertension type: essential hypertension Seizure disorder G40.909 Chronic obstructive pulmonary disease J44.9 COPD type: unspecified COPD Depression with anxiety F41.8 Hypokalemia E87.6 Hypomagnesemia E83.42 Hip pain, right M25.551 Sciatica M54.30 Dizziness R42 (1) Atrial fibrillation Atrial fibrillation type: chronic Qualified Code(s): I48.2 - Chronic atrial fibrillation (2) Chronic obstructive pulmonary disease COPD type: unspecified COPD Qualified Code(s): J44.9 - Chronic obstructive pulmonary disease, unspecified (3) GERD (gastroesophageal reflux disease) Esophagitis presence: with esophagitis Qualified Code(s): K21.0 - Gastro- esophageal reflux disease with esophagitis (4) Hypertension Hypertension type: essential hypertension Qualified Code(s): I10 - Essential (primary) hypertension
[2021-07-15] MEDS: OLANZapine ZYDIS 5 MG ORALLY DIS. TAB PO SCH ×2 (13:27→21:26)
[2021-07-15] MEDS: FAMOTIDINE 20 MG TAB PO SCH (21:27)
[2021-07-15] MEDS: MIRTAZAPINE TAB 15 MG TAB PO SCH (21:28)
[2021-07-16] MEDS: ACETAMINOPHEN 500 MG TAB PO SCH ×3 (05:56→20:36)
[2021-07-16] MEDS: OLANZapine ZYDIS 5 MG ORALLY DIS. TAB PO SCH ×4 (08:58→20:32)
[2021-07-16] MEDS: GABAPENTIN 300 MG CAP PO SCH ×5 (08:58→20:32)
[2021-07-16] MEDS: lamoTRIgine 100 MG TAB PO SCH ×4 (08:59→20:32)
[2021-07-16] MEDS: APIXABAN 5 MG TABLET PO SCH ×3 (09:00→20:32)
[2021-07-16] MEDS: PANTOprazole 40 MG TAB PO SCH ×2 (09:00→09:39)
[2021-07-16] MEDS: FUROSEMIDE 40 MG TAB PO SCH ×3 (09:00→16:03)
[2021-07-16] MEDS: DICLOFENAC SOD 1% GEL 100 GM TUBE EXT SCH ×4 (09:01→20:05)
[2021-07-16] MEDS: POTASSIUM CHLORIDE CRTAB 20 MEQ TABCR PO SCH (09:35)
[2021-07-16] MEDS: levETIRAcetam 500 MG in 0.9 % SODIUM CHLORIDE 100 ML IV SCH ×2 (11:02→20:05)
[2021-07-16] MEDS: THIAMINE HCL 200 MG in SODIUM CHLORIDE 0.9% 50 ML IV SCH (14:11)
--- NOTE | 2021-07-16 14:29 | Hospitalist Progress Note ---
Date of Service July 16, 2021 Assessment & Plan (1) Delirium: Plan: Become severely agitated on 07/13-07/14-07/16, requiring multiple doses of IM Haldol This is most likely secondary to hospital delirium plus the use of opioids and tramadol for her right hip pain and abdominal pain. Dilaudid and tramadol have since been discontinued Now much improved with Haldol, reassurance, 1:1 sitter, rest, in new room without a roommate and by the window to see daylight Is able to have meaningful conversation and answer questions, no further paranoia. Continue Supportive care, redirection Continue Zyprexa 5 mg p.o. twice daily scheduled and continue IM Haldol prn severe agitation -ensure bowels moving, eating and drinking, activity increased, out of bed to chair and ambulating with assistance-will give bisacodyl suppository for bowels today and asked pT to work with her again (2) Small bowel obstruction: Plan: Small bowel obstruction/hiatal hernia with retained food in stomach/GERD- With a history of such in August 2020 requiring transfer to [facility] where she was treated with NG tube/decompression and had resolution Has a history of hiatal hernia repair at least 10 years ago Pain is improved and seems to be at her usual chronic low level KUB fairly stable showing possible small bowel obstruction but there is air in the colon so more likely ileus and she is not having any nausea and is tolerating p.o. Has been passing stool and gas after admission but now no BM in several days but also not eating much with delirium no nausea/vomiting, no tenderness on examination, does not clinically appear to be obstructed NG tube was never placed and she has been declining placement of such. She is also noted in the past to be quite difficult to place the NG tube Continue full liquids diet which she says is what she does all the time at home anyway-refuses solids No need to repeat x-ray unless has worsening pain or nausea/vomiting Continue famotidine p.o. Continue Zofran 4 mg IV every 6 hours as needed for nausea General surgery consulted-conservative management and transfer out if worsens due to large hiatal hernia and ventral hernia -give bisacodyl ND x 1 today (3) Hiatal hernia: Plan: See above (4) GERD (gastroesophageal reflux disease): Plan: Continue PPI and famotidine (5) Atrial fibrillation: Plan: Atrial fibrillation-rates remain controlled except when severely agitated Continue apixaban no longer on tele (6) Hypertension: Plan: Blood pressures have been controlled Continue home furosemide and potassium chloride (7) Seizure disorder: Plan: Continue Lamictal and Keppra as well as gabapentin change to IV keppra this AM as was not taking po with agitation (8) Chronic obstructive pulmonary disease: Plan: No acute issues Continue DuoNebs available to use every 2 hours as needed (9) Depression with anxiety: Plan: With quite labile emotions here-mildly confused at times, now improved Is often tearful and frustrated with her multiple medical issues, now with severe agitation and delirium as above which is resolving Continue mirtazapine (10) Hypokalemia: Plan: Replaced and resolved Continue home potassium supplement along with Lasix (11) Hypomagnesemia: Plan: Replaced and resolved Continue home magnesium p.o. supplement (12) Hip pain, right: Plan: With known severe OA of the right hip Seen by orthopedics in the past but determined not to be a surgical candidate due to morbid obesity Not improving with Voltaren gel, IV Dilaudid, IV Toradol, p.o. tramadol, and restarting home gabapentin Concerned that all of these medications were making her more confused -Discontinued IV Dilaudid, discontinue IV Toradol as she has had numerous doses and could be nephrotoxic -Continue Voltaren gel, Tylenol scheduled -Discontinued tramadol as above for delirium PT to re-evaluate today (13) Sciatica: Plan: Long history of such and has history of lumbar spine fusion With worsening right lower extremity radicular symptoms and numbness in the first 2 days of hospitalization likely exacerbated by not receiving her gabapentin while n.p.o. with bowel obstruction Restarted gabapentin and seems to be somewhat improved Discontinue tramadol as above for delirium PT/OT (14) Dizziness: Plan: New complaint on 07/13, although she reports a long history of such Meclizine as needed was given but will now be discontinued as this may be contributing to delirium Seems to be resolved Plan: DVT prophylaxis- Eliquis Disposition-continued stay, with severe agitation delirium improving, needs repeat PT eval and hopeful for dc to home tomorrow PT/OT recommending rehab, but she is adamantly refusing rehab prior to when delirium started. She does have caregivers every day of the week for 6 hours and will have visiting nurse, PT/OT. Case management has arranged for a rolling walker Called niece/regulatory process manager, Dawn, and gave update via voicemail Admission and Anticipated Discharge Date Admission Date: July 10, 2021 Subjective Pt was agitated again overnight and required IM Haldol this AM. This afternoon sh eis finally mych calmer, more oriented, and asking when she can go home. She is tearful but certainly improved from previous. She reports abd pain is pretty much gone. Does not want solid foods, only liquids. She is continuing to c/o pain in right hip and worries about if she can walk on it or not. I asked PT to try to work with her again this afternoon. No BM in many days Called ninamrata dawn and left a voicemail today Review of Systems Review of Systems: All systems reviewed & are unremarkable except as noted in HPI & below Physical Exam Constitutional: WD/WN, vitals as above + morbidly obese Eyes: + anicteric sclerae Neck: trachea midline, no thyromegaly Respiratory: normal respiratory effort, lungs clear to auscultation Cardiovascular: Rate/Rhythm: regular rate and + irregularly irregular Heart Sounds: no murmur Extremities: + edema (Trace pitting edema in legs bilaterally) Chest (Breasts): Chest: normal inspection of chest Gastrointestinal (Abdomen): Inspection/Auscultation: normal bowel sounds; abdomen not distended Percussion/Palpation: abdomen soft and + hernia (Ventral hernia, reducible); abdomen nontender and no guarding Musculoskeletal: Extremities: extremities normal to inspection; no cyanosis and no clubbing Skin: no rashes, warm and dry Neurologic: moves all extremities and awake; no focal motor deficits Psychiatric: Eye Contact: good eye contact Motor Behavior: no psychomotor agitation Affect: + tearful affect Mood: + depressed mood Hallucinations: no auditory hallucinations Insight: + fair insight Results & Data Results & Data ([facility]) Vital Signs (Past 12 Hours) Vital Signs Temp Pulse Pulse Resp BP Pulse Ox 07/16/21 08:22 36.7 C 78 20 147/78 H 96 07/16/21 08:00 84 Laboratory Results 07/16/21 Range/Units 08:17 POC Glucose 96 (70-99) mg/dl PG Care Time/CCT Total # of Minutes Spent Total Time Spent with Patient: Total time spent is greater than 50% in coordination of care (as documented) at patient's floor/unit and/or counseling patient: Coding Level of Care Code 16328 Subseq Hosp Care Lvl 3 Diagnoses Delirium R41.0 Small bowel obstruction K56.609 Hiatal hernia K44.9 GERD (gastroesophageal reflux disease) K21.0 Esophagitis presence: with esophagitis Atrial fibrillation I48.2 Atrial fibrillation type: chronic Hypertension I10 Hypertension type: essential hypertension Seizure disorder G40.909 Chronic obstructive pulmonary disease J44.9 COPD type: unspecified COPD Depression with anxiety F41.8 Hypokalemia E87.6 Hypomagnesemia E83.42 Hip pain, right M25.551 Sciatica M54.30 Dizziness R42 (1) GERD (gastroesophageal reflux disease) Esophagitis presence: with esophagitis Qualified Code(s): K21.0 - Gastro- esophageal reflux disease with esophagitis (2) Atrial fibrillation Atrial fibrillation type: chronic Qualified Code(s): I48.2 - Chronic atrial fibrillation (3) Hypertension Hypertension type: essential hypertension Qualified Code(s): I10 - Essential (primary) hypertension (4) Chronic obstructive pulmonary disease COPD type: unspecified COPD Qualified Code(s): J44.9 - Chronic obstructive pulmonary disease, unspecified
[2021-07-16] MEDS ORDERED: bisacodyL 10 MG SUPP PR STA (14:30)
[2021-07-16] MEDS: ONDANSETRON INJ 2 MG/ML 2 ML VIAL IV PRN (20:04)
[2021-07-16] MEDS: FAMOTIDINE 20 MG TAB PO SCH (20:32)
[2021-07-16] MEDS: MIRTAZAPINE TAB 15 MG TAB PO SCH (20:33)
[2021-07-16] MEDS ORDERED: ONDANSETRON INJ 2 MG/ML 2 ML VIAL IV STA (21:55)
[2021-07-16] MEDS ORDERED: PROMETHAZINE HCL 12.5 MG in SODIUM CHLORIDE 0.9% 50 ML IV PRN (21:56)
[2021-07-17] MEDS: ACETAMINOPHEN 500 MG TAB PO SCH ×3 (06:07→21:06)
[2021-07-17 07:50] LABS: Basophils # (auto) 0.02 K/uL (0-0.2); Basophils % (auto) 0.2 %; Eosinophils # (auto) 0.07 K/uL (0-0.5); Eosinophils % (auto) 0.6 %; Hematocrit (blood only) 35.7 % (37-47); Hemoglobin 11.6 g/dL (12.0-16.0); Immature Granulocytes # (auto) 0.03 K/uL (0.00-0.02); Immature Granulocytes % (auto) 0.2 %; Lymphocytes # (auto) 1.28 K/uL (1.2-3.4); Lymphocytes % (auto) 10.1 %; Mean Corpuscular Hemoglobin 26.5 pg (25-34); Mean Corpuscular Hgb Conc 32.5 g/dL (32-36); Mean Corpuscular Volume 81.7 fL (80-100); Mean Platelet Volume 11.2 fL (7.4-10.4); Monocytes # (auto) 0.78 K/uL (0.11-0.59); Monocytes % (auto) 6.1 %; Neutrophils # (auto) 10.53 K/uL (1.4-6.5); Neutrophils % (auto) 82.8 %; Platelet Count 220 K/uL (130-400); RDW Standard Deviation 50.4 fL (36.4-46.3); Red Blood Count 4.37 M/uL (4.2-5.4); White Blood Count 12.71 K/uL (4.8-10.8)
[2021-07-17 08:14] LABS: BUN Creatinine Ratio 10.1 (10-20); Calcium 8.7 mg/dl (8.5-10.1); Creatinine Clr Calc Pharmacy 97.1 ml/min; Est GFR (African American) 95.4 ml/min; Est GFR (Non-African American) 82.3 ml/min; Magnesium 2.1 mg/dl (1.8-2.4); Potassium 3.1 mmol/L (3.5-5.1)
[2021-07-17] MEDS: APIXABAN 5 MG TABLET PO SCH ×2 (08:47→21:04)
[2021-07-17] MEDS: THIAMINE HCL 200 MG in SODIUM CHLORIDE 0.9% 50 ML IV SCH (08:47)
[2021-07-17] MEDS: PANTOprazole 40 MG TAB PO SCH (08:47)
[2021-07-17] MEDS: GABAPENTIN 300 MG CAP PO SCH ×3 (08:47→21:05)
[2021-07-17] MEDS: FUROSEMIDE 40 MG TAB PO SCH (08:48)
[2021-07-17] MEDS: OLANZapine ZYDIS 5 MG ORALLY DIS. TAB PO SCH ×2 (08:48→21:05)
[2021-07-17] MEDS: lamoTRIgine 100 MG TAB PO SCH ×2 (08:48→21:05)
[2021-07-17] MEDS: DICLOFENAC SOD 1% GEL 100 GM TUBE EXT SCH ×4 (08:49→21:04)
[2021-07-17] MEDS: POTASSIUM CHLORIDE CRTAB 20 MEQ TABCR PO SCH (08:57)
[2021-07-17] MEDS: ONDANSETRON INJ 2 MG/ML 2 ML VIAL IV PRN ×2 (09:01→14:36)
[2021-07-17] MEDS ORDERED: POTASSIUM CHLORIDE CRTAB 20 MEQ TABCR PO STA (09:11)
[2021-07-17] MEDS ORDERED: METOCLOPRAMIDE HCL INJ 5 MG/ML 2 ML VIAL IV ONE (09:30)
[2021-07-17] MEDS: levETIRAcetam 500 MG in 0.9 % SODIUM CHLORIDE 100 ML IV SCH ×2 (09:59→21:04)
--- NOTE | 2021-07-17 10:40 | XRay Report ---
KUB HISTORY: nausea,h/o SBO COMPARISON: KUB 07/12/2021. FINDINGS: Surgical clips within the upper abdomen and L5-S1 posterior fusion hardware is again noted. Prior cholecystectomy. Contrast within the bladder from the recent CT examination. Mildly dilated ga s-filled loops of small bowel are again noted. There is also gas and stool seen throughout the colon. A hiatus hernia is again noted. No renal calculi. No ureteral calculi. No pneumoperitoneum or pneum atosis. IMPRESSION: No significant change in the mildly dilated gas-filled loops of small bowel. There is also gas and st ool seen throughout the colon. Therefore, this could represent an ileus or partial small bowel obstru ction ACT 112: Negative or not required by law. Electronically signed by: Drew Noyola M.D. 07/17/2021 10:38 AM
[2021-07-17] MEDS ORDERED: diphenhydrAMINE 50 MG/ML VIAL IV ONE (10:43)
[2021-07-17] MEDS: POTASSIUM CHLORIDE / WTR 10 MEQ/100 ML PLCT IV SCH ×4 (11:10→14:42)
--- NOTE | 2021-07-17 12:48 | CT Scan Report ---
HEAD CT NONCONTRAST CT DOSE: 709.48 mGy.cm HISTORY: Vertigo. Altered mental status. TECHNIQUE: Multiaxial CT images of the head were performed without the use of intravenous contrast. A utomated exposure control was utilized for this study. A dose lowering technique was utilized adheri ng to the principles of ALARA. Comparison: Head CT 08/21/2020. Findings: The paranasal sinuses and mastoid air cells are clear. The calvarium and skull base are int act. The ventricles and sulci are within normal limits. There is no mass, hematoma, midline shift, or acute infarct. Impression: No acute intracranial abnormality. ACT 112: Negative or not required by law. Electronically signed by: Drew Noyola M.D. 07/17/2021 12:46 PM
[2021-07-17] MEDS: MIRTAZAPINE TAB 15 MG TAB PO SCH (21:04)
[2021-07-17] MEDS: FAMOTIDINE 20 MG TAB PO SCH (21:05)
--- NOTE | 2021-07-17 22:36 | Hospitalist Progress Note ---
Date of Service July 17, 2021 Assessment & Plan (1) Small bowel obstruction: Plan: Small bowel obstruction/hiatal hernia with retained food in stomach/GERD- With a history of such in August 2020 requiring transfer to [facility] where she was treated with NG tube/decompression and had resolution Has a history of hiatal hernia repair at least 10 years ago NG tube was never placed and she has been declining placement of such. She is also noted in the past to be quite difficult to place the NG tube Pain is improved and seems to be at her usual chronic low level KUB fairly stable showing possible small bowel obstruction but there is air in the colon so more likely ileus and she is not having any nausea and is tolerating p.o. Has been passing stool and gas after admission but then had no BM in several days but also not eating much with delirium-now status post 2 large bowel movements on 07/17 no tenderness on examination, does not clinically appear to be obstructed Had nausea/vomiting on 07/17 related to vertigo, KUB shows air and stool through out the colon Continue full liquids diet which she says is what she does all the time at home anyway-refuses solids Continue famotidine p.o. General surgery consulted-conservative management and transfer out if worsens due to large hiatal hernia and ventral hernia (2) Delirium: Plan: Become severely agitated on 07/13-07/14-07/16, requiring multiple doses of IM Haldol This is most likely secondary to hospital delirium plus the use of opioids and tramadol for her right hip pain and abdominal pain. Dilaudid and tramadol have since been discontinued Now much improved with Haldol, reassurance, 1:1 sitter, rest, in new room without a roommate and by the window to see daylight-has been discontinued from the one-to-one Is able to have meaningful conversation and answer questions, no further paranoia. On the morning of 07/17, was a little bit confused after receiving Phenergan for nausea overnight for recurrent severe vertigo and nausea/vomiting Then had a dystonic-like reaction to Reglan-resolved with IV Benadryl Continue Supportive care, redirection Continue Zyprexa 5 mg p.o. twice daily scheduled and continue IM Haldol prn severe agitation -ensure bowels moving, eating and drinking, activity increased, out of bed to chair and ambulating with assistance (3) Dizziness: Plan: New complaint on 07/13, although she reports a long history of such Was resolved and returned on 07/17 and was associated with multiple episodes of nausea/vomiting Meclizine had previously been discontinued as this was possibly contributing to delirium Supportive care, avoid benzodiazepines Could try meclizine low-dose if needed if does not improve IV Zofran as needed for nausea -Avoid Reglan as had dystonic reaction-added to allergy list -Avoid Phenergan due to causing confusion (4) Hiatal hernia: Plan: See above (5) GERD (gastroesophageal reflux disease): Plan: Continue PPI and famotidine (6) Atrial fibrillation: Plan: Atrial fibrillation-rates remain controlled except when severely agitated Continue apixaban no longer on tele (7) Hypertension: Plan: Blood pressures have been controlled Continue home furosemide and potassium chloride (8) Seizure disorder: Plan: Continue Lamictal and Keppra as well as gabapentin changed to IV keppra as was not taking po with agitation-we will change back to p.o. as she is not tolerating (9) Chronic obstructive pulmonary disease: Plan: No acute issues Continue DuoNebs available to use every 2 hours as needed (10) Depression with anxiety: Plan: With quite labile emotions here-mildly confused at times, now improved Is often tearful and frustrated with her multiple medical issues, now with severe agitation and delirium as above which is resolving Continue mirtazapine Asked her support person/her niece Mariel to come in for a visit today which was approved by the clinical coordinator (11) Hypokalemia: Plan: Replaced and resolved Continue home potassium supplement along with Lasix (12) Hypomagnesemia: Plan: Replaced and resolved Continue home magnesium p.o. supplement (13) Hip pain, right: Plan: With known severe OA of the right hip Seen by orthopedics in the past but determined not to be a surgical candidate due to morbid obesity Not improving with Voltaren gel, IV Dilaudid, IV Toradol, p.o. tramadol, and restarting home gabapentin Concerned that all of these medications were making her more confused -Discontinued IV Dilaudid, discontinue IV Toradol as she has had numerous doses and could be nephrotoxic -Continue Voltaren gel, Tylenol scheduled -Discontinued tramadol as above for delirium PT reevaluated her on 07/16 she was able to walk up and down the hallways with a walker (14) Sciatica: Plan: Long history of such and has history of lumbar spine fusion With worsening right lower extremity radicular symptoms and numbness in the first 2 days of hospitalization likely exacerbated by not receiving her gabapentin while n.p.o. with bowel obstruction Restarted gabapentin and is now improved Discontinued tramadol as above for delirium PT/OT Plan: DVT prophylaxis- Eliquis Disposition-continued stay, with severe agitation and delirium improving, but now with recurrent severe vertigo and associated nausea/vomiting making her not medically stable for discharge PT/OT initially recommending rehab, but she adamantly refuses rehab. On reevaluation on 07/16, she was improved and PT recommended home with home health and 11/06 supervision. She does have caregivers every day of the week for 6 hours and will have visiting nurse, PT/OT. She also has family members that can come and stay with her. Case management has arranged for a rolling walker which has been delivered. Called niece/circus supervisor, Mariel, and gave update on the phone Hopeful for discharge to home tomorrow if vertigo is improved and mental status remains at her baseline Admission and Anticipated Discharge Date Admission Date: July 10, 2021 Subjective Patient had 3 episodes of vomiting overnight and received Phenergan. She has been having a lot of vertigo this morning and is crying and saying that the room is spinning around her and it is making her sick to her stomach. She was then asking for Reglan this morning and was given a dose. She did report improvement in her nausea, however about 30 minutes later, I was seeing her at the bedside and she started developing a tremor in both arms but right greater than left and was rolling her eyes all around at times. She was responding to verbal cues and answering questions but seemed somewhat altered. I gave her dose of IV Benadryl in case of dyskinetic reaction to Reglan, and she ended up sleeping for a bit and waking up and feeling much better. I explained to her prior to that that she would not be able to go home today due to the severe vertigo she was having along with nausea and she was disappointed but was comfortable with this. She did still seem a bit confused and tearful, repeatedly stating "I am sorry if I hurt you. I am sorry if I hurt anyone." I discussed her care with her niece on the phone and got permission for the niece to make a 1 hour visit today. Review of Systems Review of Systems: All systems reviewed & are unremarkable except as noted in HPI & below Physical Exam Constitutional: WD/WN, vitals as above + morbidly obese Eyes: + anicteric sclerae and + nystagmus Neck: trachea midline, no thyromegaly Respiratory: normal respiratory effort, lungs clear to auscultation Cardiovascular: Rate/Rhythm: regular rate and + irregularly irregular Heart Sounds: no murmur Extremities: + edema (Trace pitting edema in legs bilater ally) Chest (Breasts): Chest: normal inspection of chest Gastrointestinal (Abdomen): Inspection/Auscultation: normal bowel sounds; abdomen not distended Percussion/Palpation: abdomen soft and + hernia (Ventral hernia, reducible); abdomen nontender and no guarding Musculoskeletal: Extremities: extremities normal to inspection; no cyanosis and no clubbing Skin: no rashes, warm and dry Neurologic: moves all extremities and awake; no focal motor deficits Motor/Sensory: + tremor (In upper extremities right greater than left) Psychiatric: Eye Contact: good eye contact Motor Behavior: no psychomotor agitation Affect: + tearful affect Results & Data Results & Data ([facility]) Vital Signs (Past 12 Hours) Vital Signs Temp Pulse Resp BP Pulse Ox 07/17/21 15:04 36.7 C 85 22 158/77 H 93 Laboratory Results 07/17/21 07/17/21 07/17/21 Range/Units 16:44 11:41 07:33 WBC (4.8-10.8) K/uL RBC (4.2-5.4) M/uL Hgb (12.0-16.0) g/dL Hct (37-47) % MCV (80-100) fL MCH (25-34) pg MCHC (32-36) g/dL RDW Std Deviation (36.4-46.3) fL RDW Coeff of Lucio (11.5-14.5) % Plt Count (130-400) K/uL MPV (7.4-10.4) fL Immature Gran % (Auto) % Neut % (Auto) % Lymph % (Auto) % [place] % (Auto) % Eos % (Auto) % Baso % (Auto) % Neut # (Auto) (1.4-6.5) K/uL Lymph # (Auto) (1.2-3.4) K/uL [place] # (Auto) (0.11-0.59) K/uL Eos # (Auto) (0-0.5) K/uL Baso # (Auto) (0-0.2) K/uL Immature Gran # (Auto) (0.00-0.02) K/uL Sodium (136-145) mmol/L Potassium (3.5-5.1) mmol/L Chloride (98-107) mmol/L Carbon Dioxide (21-32) mmol/L Anion Gap (3-11) BUN (7-18) mg/dl Creatinine (0.6-1.2) mg/dl Est Cr Clr Drug Dosing ml/min Est GFR ( Amer) ml/min Est GFR (Non-Af Amer) ml/min BUN/Creatinine Ratio (10-20) Glucose (70-99) mg/dl POC Glucose 115 H 101 H 104 H (70-99) mg/dl Calcium (8.5-10.1) mg/dl Magnesium (1.8-2.4) mg/dl 07/17/21 07/17/21 Range/Units 07:22 07:22 WBC 12.71 H (4.8-10.8) K/uL RBC 4.37 (4.2-5.4) M/uL Hgb 11.6 L (12.0-16.0) g/dL Hct 35.7 L (37-47) % MCV 81.7 (80-100) fL MCH 26.5 (25-34) pg MCHC 32.5 (32-36) g/dL RDW Std Deviation 50.4 H (36.4-46.3) fL RDW Coeff of Lucio 17.0 H (11.5-14.5) % Plt Count 220 (130-400) K/uL MPV 11.2 H (7.4-10.4) fL Immature Gran % (Auto) 0.2 % Neut % (Auto) 82.8 % Lymph % (Auto) 10.1 % [place] % (Auto) 6.1 % Eos % (Auto) 0.6 % Baso % (Auto) 0.2 % Neut # (Auto) 10.53 H (1.4-6.5) K/uL Lymph # (Auto) 1.28 (1.2-3.4) K/uL [place] # (Auto) 0.78 H (0.11-0.59) K/uL Eos # (Auto) 0.07 (0-0.5) K/uL Baso # (Auto) 0.02 (0-0.2) K/uL Immature Gran # (Auto) 0.03 H (0.00-0.02) K/uL Sodium 144 (136-145) mmol/L Potassium 3.1 L (3.5-5.1) mmol/L Chloride 111 H (98-107) mmol/L Carbon Dioxide 26 (21-32) mmol/L Anion Gap 7.0 (3-11) BUN 7 (7-18) mg/dl Creatinine 0.73 (0.6-1.2) mg/dl Est Cr Clr Drug Dosing 97.1 ml/min Est GFR ( Amer) 95.4 ml/min Est GFR (Non-Af Amer) 82.3 ml/min BUN/Creatinine Ratio 10.1 (10-20) Glucose 107 H (70-99) mg/dl POC Glucose (70-99) mg/dl Calcium 8.7 (8.5-10.1) mg/dl Magnesium 2.1 (1.8-2.4) mg/dl PG Care Time/CCT Total # of Minutes Spent Total Time Spent with Patient: Total time spent is greater than 50% in coordination of care (as documented) at patient's floor/unit and/or counseling patient: Coding Level of Care Code 07243 Subseq Hosp Care Lvl 3 Diagnoses Delirium R41.0 Small bowel obstruction K56.609 Hiatal hernia K44.9 GERD (gastroesophageal reflux disease) K21.0 Esophagitis presence: with esophagitis Atrial fibrillation I48.2 Atrial fibrillation type: chronic Hypertension I10 Hypertension type: essential hypertension Seizure disorder G40.909 Chronic obstructive pulmonary disease J44.9 COPD type: unspecified COPD Depression with anxiety F41.8 Hypokalemia E87.6 Hypomagnesemia E83.42 Hip pain, right M25.551 Sciatica M54.30 Dizziness R42 (1) Atrial fibrillation Atrial fibrillation type: chronic Qualified Code(s): I48.2 - Chronic atrial fibrillation (2) Chronic obstructive pulmonary disease COPD type: unspecified COPD Qualified Code(s): J44.9 - Chronic obstructive pulmonary disease, unspecified (3) GERD (gastroesophageal reflux disease) Esophagitis presence: with esophagitis Qualified Code(s): K21.0 - Gastro- esophageal reflux disease with esophagitis (4) Hypertension Hypertension type: essential hypertension Qualified Code(s): I10 - Essential (primary) hypertension
[2021-07-18] MEDS: ACETAMINOPHEN 500 MG TAB PO SCH ×3 (05:55→21:09)
[2021-07-18] MEDS: lamoTRIgine 100 MG TAB PO SCH ×2 (07:57→19:35)
[2021-07-18] MEDS: PANTOprazole 40 MG TAB PO SCH (07:57)
[2021-07-18] MEDS: GABAPENTIN 300 MG CAP PO SCH ×3 (07:58→19:34)
[2021-07-18] MEDS: APIXABAN 5 MG TABLET PO SCH ×2 (07:58→19:35)
[2021-07-18] MEDS: levETIRAcetam 500 MG TAB PO SCH ×2 (07:59→19:35)
[2021-07-18] MEDS: FUROSEMIDE 40 MG TAB PO SCH (07:59)
[2021-07-18] MEDS: THIAMINE HCL 100 MG TAB PO SCH (07:59)
[2021-07-18] MEDS: MECLIZINE 12.5 MG TAB PO PRN ×3 (07:59→19:33)
[2021-07-18] MEDS: OLANZapine ZYDIS 5 MG ORALLY DIS. TAB PO SCH ×2 (07:59→19:34)
[2021-07-18] MEDS: DICLOFENAC SOD 1% GEL 100 GM TUBE EXT SCH ×4 (08:00→19:35)
[2021-07-18] MEDS: POTASSIUM CHLORIDE CRTAB 20 MEQ TABCR PO SCH (08:31)
[2021-07-18 09:36] LABS: Hematocrit (blood only) 39.3 % (37-47); Hemoglobin 12.7 g/dL (12.0-16.0); Mean Corpuscular Hemoglobin 26.5 pg (25-34); Mean Corpuscular Hgb Conc 32.3 g/dL (32-36); Mean Corpuscular Volume 81.9 fL (80-100); Mean Platelet Volume 10.7 fL (7.4-10.4); Platelet Count 255 K/uL (130-400); RDW Coefficient of Variation 17.1 % (11.5-14.5); RDW Standard Deviation 50.9 fL (36.4-46.3)
[2021-07-18 09:52] LABS: BUN Creatinine Ratio 8.7 (10-20); Calcium 9.2 mg/dl (8.5-10.1); Creatinine Clr Calc Pharmacy 76.2 ml/min; Est GFR (African American) 71.2 ml/min; Est GFR (Non-African American) 61.4 ml/min; Potassium 3.2 mmol/L (3.5-5.1)
[2021-07-18] MEDS: ONDANSETRON INJ 2 MG/ML 2 ML VIAL IV PRN (12:16)
[2021-07-18] MEDS: MICONAZOLE NITRATE POWDER 43 GM EXT PRN ×2 (13:34→19:36)
--- NOTE | 2021-07-18 16:48 | Hospitalist Progress Note ---
Date of Service July 18, 2021 Assessment & Plan (1) Small bowel obstruction: Plan: Small bowel obstruction with hiatal hernia with retained food in stomach. With a history of such in August 2020 requiring transfer to [facility] where she was treated with NG tube/decompression and had resolution. She has a history of hiatal hernia repair at least 10 years ago. - Had nausea/vomiting on 07/17 related to vertigo, KUB shows air and stool throughout the colon. - Continue full liquids diet which she says is what she does all the time at home anyway - refuses solids. - General surgery consulted -> conservative management and transfer out if worsens due to large hiatal hernia and ventral hernia. - No indication of worsening SBO today, but still having nausea from vertigo. (2) Dizziness: Plan: New complaint on 07/13, although she reports a long history of such. Was resolved and returned on 07/17 and was associated with multiple episodes of nausea/vomiting. - Avoid Reglan as had dystonic reaction-added to allergy list - Avoid Phenergan due to causing confusion - Still with vertigo/dizziness/nausea today. Attempting to treat with Zofran and meclizine. (3) Atrial fibrillation: Plan: Rates remain controlled except when severely agitated. No longer on tele. - Continue apixaban - Not on rate-control presently. (4) Hiatal hernia: Plan: See above (5) GERD (gastroesophageal reflux disease): Plan: - Continue PPI and famotidine. (6) Hypertension: Plan: Blood pressures have been controlled. Today BP is 115/70. - Continue home furosemide and potassium chloride (7) Seizure disorder: Plan: No indication of seizure in the hospital. - Continue Lamictal, Keppra, and gabapentin (8) Chronic obstructive pulmonary disease: Plan: No acute issues. - Continue DuoNebs available to use every 2 hours as needed (9) Depression with anxiety: Plan: With quite labile emotions here-mildly confused at times, now improved. Is often tearful and frustrated with her multiple medical issues. - Continue mirtazapine (10) Hip pain, right: Plan: With known severe OA of the right hip. Seen by orthopedics in the past but determined not to be a surgical candidate due to morbid obesity. - Continue Voltaren gel, Tylenol scheduled - PT reevaluated her on 07/16 she was able to walk up and down the hallways with a walker. (11) DVT prophylaxis: Plan: On apixaban for afib Admission and Anticipated Discharge Date Admission Date: July 10, 2021 Subjective Reports continued nausea and vertigo. Some slurred speech, but reports that it is a chronic issues. Reports no fevers/chills, chest pain, shortness of breath, abdominal pain, or vomiting. Physical Exam Constitutional: WD/WN, vitals as above Eyes: EOM intact bilaterally; no conjunctival abnormality ENMT: external ear and nose normal, oropharynx normal Neck: trachea midline, no thyromegaly normal visual inspection Respiratory: normal respiratory effort, lungs clear to auscultation no respiratory distress Cardiovascular: RRR, no murmur, no edema Gastrointestinal (Abdomen): Inspection/Auscultation: abdomen normal to inspection; abdomen not distended Musculoskeletal: no cyanosis or clubbing, extremities motor strength 5/5 Skin: no rashes, warm and dry Neurologic: moves all extremities and awake Psychiatric: Orientation: alert, oriented to person and cooperative Results & Data Results & Data ([facility]) Vital Signs (Past 12 Hours) Vital Signs Temp Pulse Resp BP Pulse Ox 07/18/21 07:18 36.7 C 71 16 116/67 95 PG Care Time/CCT Total # of Minutes Spent Total Time Spent with Patient: Total time spent is greater than 50% in coordination of care (as documented) at patient's floor/unit and/or counseling patient: Coding Level of Care Code 07866 Subseq Hosp Care Lvl 2 Diagnoses Small bowel obstruction K56.609 Dizziness R42 Hiatal hernia K44.9 GERD (gastroesophageal reflux disease) K21.0 Esophagitis presence: with esophagitis Atrial fibrillation I48.2 Atrial fibrillation type: chronic Hypertension I10 Hypertension type: essential hypertension Seizure disorder G40.909 Chronic obstructive pulmonary disease J44.9 COPD type: unspecified COPD Depression with anxiety F41.8 Hip pain, right M25.551 DVT prophylaxis Z29.9 (1) GERD (gastroesophageal reflux disease) Esophagitis presence: with esophagitis Qualified Code(s): K21.0 - Gastro- esophageal reflux disease with esophagitis (2) Atrial fibrillation Atrial fibrillation type: chronic Qualified Code(s): I48.2 - Chronic atrial fibrillation (3) Hypertension Hypertension type: essential hypertension Qualified Code(s): I10 - Essential (primary) hypertension (4) Chronic obstructive pulmonary disease COPD type: unspecified COPD Qualified Code(s): J44.9 - Chronic obstructive pulmonary disease, unspecified
[2021-07-18] MEDS ORDERED: POTASSIUM CHLORIDE CRTAB 20 MEQ TABCR PO STA (16:49)
[2021-07-18] MEDS: FAMOTIDINE 20 MG TAB PO SCH (19:33)
[2021-07-18] MEDS: MIRTAZAPINE TAB 15 MG TAB PO SCH (19:34)
[2021-07-19] MEDS: ACETAMINOPHEN 500 MG TAB PO SCH ×2 (06:06→15:06)
[2021-07-19] MEDS: GABAPENTIN 300 MG CAP PO SCH ×2 (08:55→15:04)
[2021-07-19] MEDS: MECLIZINE 12.5 MG TAB PO PRN (08:55)
[2021-07-19] MEDS: lamoTRIgine 100 MG TAB PO SCH (08:55)
[2021-07-19] MEDS: OLANZapine ZYDIS 5 MG ORALLY DIS. TAB PO SCH (08:55)
[2021-07-19] MEDS: levETIRAcetam 500 MG TAB PO SCH (08:55)
[2021-07-19] MEDS: POTASSIUM CHLORIDE CRTAB 20 MEQ TABCR PO SCH (08:55)
[2021-07-19] MEDS: APIXABAN 5 MG TABLET PO SCH (08:55)
[2021-07-19] MEDS: DICLOFENAC SOD 1% GEL 100 GM TUBE EXT SCH ×3 (08:56→17:57)
[2021-07-19] MEDS: THIAMINE HCL 100 MG TAB PO SCH (08:56)
[2021-07-19] MEDS: FUROSEMIDE 40 MG TAB PO SCH (08:56)
[2021-07-19] MEDS: PANTOprazole 40 MG TAB PO SCH (08:56)
--- NOTE | 2021-07-19 14:42 | Discharge Summary ---
Date of Service July 19, 2021 Admission HPI Per Admitting Provider The patient is a 71-year-old female with a past medical history including lumbar radiculopathy, seizure-like activity, hiatal hernia, partial small bowel obstruction, DJD of knee, gait abnormality, renal insufficiency, seizure disorder, morbid obesity, megaloblastic anemia, hypertension, hyperlipidemia, gout, depression with anxiety, COPD, aortic stenosis, hypertension, GERD, atrial fibrillation, stomach erosions determined by endoscopy and diverticulitis. The patient presents to the emergency department with symptoms of worsening abdominal pain, nausea and vomiting similar to previous episodes of bowel obstru ctions. Work-up in the emergency department for CT scan of abdomen the pelvis which showed: A 12 cm hiatal hernia with retained gastric contents, and severe ileus versus intermediate grade small bowel obstruction. Principal Diagnosis Possible small bowel obstruction vs. hiatal hernia pain Dizziness NOS Discharge Exam Constitutional WD/WN, vitals as above Eyes EOM intact bilaterally; no conjunctival abnormality ENMT external ear and nose normal, oropharynx normal Neck trachea midline, no thyromegaly normal visual inspection Respiratory normal respiratory effort, lungs clear to auscultation no respiratory distress Cardiovascular RRR, no murmur, no edema Gastrointestinal (Abdomen) Inspection/Auscultation: abdomen normal to inspection; abdomen not distended Musculoskeletal no cyanosis or clubbing, extremities motor strength 5/5 Skin no rashes, warm and dry Neurologic moves all extremities and awake Psychiatric Orientation: alert, oriented to person and cooperative Discharge Data Allergies Allergy/AdvReac Type Severity Reaction Status Date / Time latex Allergy Intermediate Rash, itchy Verified 07/09/21 23:59 adhesive Allergy Mild ITCHY Verified 07/09/21 23:59 bacitracin Allergy Unknown Unknown Verified 07/09/21 23:59 [From Neosporin ([id number])] neomycin Allergy Unknown Unknown Verified 07/09/21 23:59 [From Neosporin ([id number])] polymyxin B Allergy Unknown Unknown Verified 07/09/21 23:59 [From Neosporin ([id number])] metoclopramide [From Reglan] AdvReac Intermediate dyskinetic Verified 07/17/21 10:50 reaction Consultations 07/10/21 04:37 ED Decision to Admit Stat 07/11/21 08:55 Consult General Surgery Routine Procedures Performed Operation Date: 07/21/21 10:15 <No data on this case meets the specified criteria> Ordered Studies 07/10/21 00:46 CT abd pelvis IV con only Urgent 07/17/21 10:42 CT head/brain wo con Urgent Hospital Course (1) Small bowel obstruction: Small bowel obstruction with hiatal hernia with retained food in stomach. With a history of such in August 2020 requiring transfer to [facility] where she was treated with NG tube/decompression and had resolution. She has a history of hiatal hernia repair at least 10 years ago. - Had nausea/vomiting on 07/17 related to vertigo, KUB shows air and stool throughout the colon. - Continue full liquids diet which she says is what she does all the time at home anyway - refuses solids. - General surgery consulted -> conservative management and transfer out if worsens due to large hiatal hernia and ventral hernia. - No indication of worsening SBO today. Dizziness/nausea is resolved. - Encouraged follow-up with surgeon at larger institution for her hiatal hernia. (2) Dizziness: New complaint on 07/13, although she reports a long history of such. Was resolved and returned on 07/17 and was associated with multiple episodes of nausea/vomiting. - Avoid Reglan as had dystonic reaction-added to allergy list - Avoid Phenergan due to causing confusion - Resolved with Zofran and meclizine. (3) Atrial fibrillation: Rates remain controlled except when severely agitated. No longer on tele. - Continue apixaban - Not on rate-control presently. (4) Hiatal hernia: See above (5) GERD (gastroesophageal reflux disease): - Continue PPI and famotidine. (6) Hypertension: Blood pressures have been controlled. Today BP is 115/70. - Continue home furosemide and potassium chloride (7) Seizure disorder: No indication of seizure in the hospital. - Continue Lamictal, Keppra, and gabapentin (8) Chronic obstructive pulmonary disease: No acute issues. - Continue DuoNebs available to use every 2 hours as needed (9) Depression with anxiety: With quite labile emotions here-mildly confused at times, now improved. Is often tearful and frustrated with her multiple medical issues. - Continue mirtazapine - Discussed with niece on day of discharge. Patient is very suspicious and angry again today. Per niece, she feels this is due to fatigue and room switches that have happened due to bed flow. Despite confusion, niece and I feel return home for rest and comfort will be the best for her. Her niece indicates that her aunt often repeats herself, and we did discuss the possibility of early dementia and what her next level of needs may be. Niece will monitor, but presently feels returning home is the best option for her aunt. (10) Hip pain, right: With known severe OA of the right hip. Seen by orthopedics in the past but determined not to be a surgical candidate due to morbid obesity. - Continue Voltaren gel, Tylenol scheduled - PT reevaluated her on 07/16 she was able to walk up and down the hallways with a walker. No report of pain on the day of discharge. (11) DVT prophylaxis: On apixaban for afib Total Time Total Time Spent Total Time Spent (In Minutes): 35 Discharge Plan Discharge Items Patient Disposition: Home - Self-Care Reason For Visit: SBO, A-FIB WITH RVR Discharge Diagnosis: Small bowel obstruction Activity: Resume your previous activity Non-emergency contact: Primary Care Provider Call non-emergency contact if: your symptoms worsen Follow-up/Referrals: Marcelo Escoto III, MD [Primary Care Provider] - 07/28/21 11:00 am Diet: Heart Healthy Addtl Attending Provider Instructions: Ms. Salmon was admitted to the hospital with abdominal pain that was caused by a possible small bowel obstruction. It is possible that this pain was also caused by her hiatal hernia which our surgeons do not feel comfortable treating. She should follow up with a [facility] surgeon or a surgeon at [facility] if this pain continues to bother her. On discharge, it had completely resolved. Pending Studies at Discharge: No Stand-Alone Forms: My [facility] The [employer], Smoking Cessation Medications and DC Order Prescriptions: Continued magnesium oxide 400 mg (241.3 mg magnesium) tablet 200 mg PO BID 90 Days Qty: 90 RF: 3 albuterol sulfate 90 mcg/actuation HFA aerosol inhaler 2 puff inhalation QID PRN (Reason: asthma) Qty: 8.5 RF: 0 (DME) Wheeled Walker Misc See Rx Instructions .ROUTE .MEDSUPPLY Qty: 1 RF: 0 Eliquis 5 mg tablet 5 mg PO QAM Qty: 90 RF: 3 potassium chloride 10 mEq tablet extended release 20 meq PO QAM Qty: 180 RF: 3 meclizine 12.5 mg tablet 12.5 - 25 mg PO Q6H PRN (Reason: dizziness) Qty: 30 RF: 5 lamotrigine 200 mg tablet,disintegrating 200 mg PO BID Qty: 60 RF: 5 mirtazapine 15 mg tablet 15 mg PO HS Qty: 30 RF: 11 furosemide 20 mg tablet 40 mg PO QAM Qty: 60 RF: 5 lamotrigine 100 mg tablet,disintegrating 100 mg PO BID Qty: 60 RF: 11 levetiracetam 100 mg/mL solution 500 mg PO BID Qty: 300 RF: 11 (DME) Shower Chair Misc See Rx Instructions .ROUTE .MEDSUPPLY Qty: 1 RF: 0 gabapentin 300 mg capsule 300 mg PO TID RF: 0 famotidine 20 mg tablet 20 mg PO HS RF: 0 omeprazole 20 mg capsule,delayed release(DR/EC) 20 mg PO DAILY RF: 0 diclofenac sodium 1 % gel 1 ea TOPICAL QID MDD 16 grams RF: 0 Discharge Orders: Discharge Order (Routine); Ordered 07/19/21 Ordered By: Chuy Colindres Admission Data Admit Date/Time: 07/10/21 04:01 Attending Provider: Chuy Colindres Admit Provider: Jorge Luis eFrrer Primary Care Provider: Marcelo Escoto III Other Providers: Reuben Blood ; [facility] ; Chuy Colindres Coding Level of Care Code D/C DAY MANAGEMENT >30 MINS Diagnoses Small bowel obstruction K56.609 Dizziness R42 Atrial fibrillation I48.2 Atrial fibrillation type: chronic Hiatal hernia K44.9 GERD (gastroesophageal reflux disease) K21.0 Esophagitis presence: with esophagitis Hypertension I10 Hypertension type: essential hypertension Seizure disorder G40.909 Chronic obstructive pulmonary disease J44.9 COPD type: unspecified COPD Depression with anxiety F41.8 Hip pain, right M25.551 DVT prophylaxis Z29.9
== END 2021-07-19 19:50 | disposition home health service (06) | DRG 392 ==
LOC: ED 23:08 → SUATTDRO 07-10 04:01 → 2N 07-10 04:01 → 2W 07-14 16:27

== ENCOUNTER 2021-07-20 08:23 | Inpatient (IN) ==
[2021-07-20] MEDS ORDERED: SODIUM CHLORIDE 0.9% 1000ML 1,000 ML IV SCH (09:30)
--- NOTE | 2021-07-20 09:47 | Emergency Department Note ---
History of Present Illness General Chief complaint: Fall Stated complaint: FALL, L RIB & R HIP PAIN Time Seen by Provider: 07/20/21 09:23 History of Present Illness Maximum Pain Intensity: 8 71-year-old female presents to the ED after a fall. The patient was reportedly discharged from [facility] yesterday. She states that she lost her footing this morning and fell onto her right hip. She complains of pain in the right hip as well as the left lower chest wall. Her pain is worse with movement. Denies striking her head or loss of consciousness. Patient does have a history of A. fib and is currently on apixaban. Home Medications Medication Instructions Recorded Confirmed Type magnesium oxide 400 mg (241.3 mg 200 mg PO BID 90 Days #90 tab 07/28/20 07/20/21 Rx magnesium) tablet gabapentin 300 mg capsule 300 mg PO TID 08/21/20 07/20/21 History furosemide 20 mg tablet 40 mg PO QAM #60 tab 09/15/20 07/20/21 Rx albuterol sulfate 90 mcg/actuation 2 puff INHALATION QID PRN #8.5 g 09/16/2012/09 Rx aerosol inhaler lamotrigine 100 mg disintegrating 100 mg PO BID #60 tab 09/27/20 07/20/21 Rx tablet levetiracetam 100 mg/mL oral 500 mg PO BID #300 ml 09/27/20 07/20/21 Rx solution apixaban 5 mg tablet (Eliquis) 5 mg PO QAM #90 tab 12/22/20 07/20/21 Rx potassium chloride 10 mEq 20 meq PO QAM #180 tab 04/05/21 07/20/21 Rx tablet,extended release meclizine 12.5 mg tablet 12.5 - 25 mg PO Q6H PRN #30 tab 05/26/21 07/20/21 Rx mirtazapine 15 mg tablet 15 mg PO HS #30 tab 06/21/21 07/20/21 Rx lamotrigine 200 mg disintegrating 200 mg PO BID #60 tab 07/04/21 07/20/21 Rx tablet famotidine 20 mg tablet 20 mg PO HS 07/09/21 07/20/21 History omeprazole 20 mg capsule,delayed 20 mg PO DAILY 07/09/21 07/20/21 History release diclofenac sodium 1 % topical gel 1 ea TOPICAL QID MDD 16 grams 07/10/21 07/20/21 History Allergies Allergy/AdvReac Type Severity Reaction Status Date / Time latex Allergy Intermediate Rash, itchy Verified 07/09/21 23:59 adhesive Allergy Mild ITCHY Verified 07/09/21 23:59 bacitracin Allergy Unknown Unknown Verified 07/09/21 23:59 [From Neosporin ([id number])] neomycin Allergy Unknown Unknown Verified 07/09/21 23:59 [From Neosporin ([id number])] polymyxin B Allergy Unknown Unknown Verified 07/09/21 23:59 [From Neosporin ([id number])] metoclopramide [From Reglan] AdvReac Intermediate dyskinetic Verified 07/17/21 10:50 reaction Past Med/Surg History Medical History Asthma Atrial fibrillation eliquis daily---follows with Dr. 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 Holm, reason for lamictal/keppra Temporomandibular joint disorder Doesn't get locked up Vertigo Surgical History History of appendectomy History of arthroplasty of left knee History of cataract surgery bilateral History of cervical discectomy 2008 Dr. Moreno C5-C6 C6-C7 History of colonoscopy History of esophagogastroduodenoscopy (EGD) History of tooth extraction History of total hysterectomy with bilateral salpingo-oophorectomy (BSO) History of total left knee replacement (TKR) History of total right knee replacement (TKR) History of vascular access device hx of Right IJ triple lumen central venous cath 2010--no longer has S/P cholecystectomy Family History Other Family history non-contributory No family history of adverse response to anesthesia Social History Smoking Status: Never smoker Second Hand Exposure: No; Hx Alcohol Use: No Hx Substance Use: No Preferred Language: Greenlandic Communication Ability: Effective Visual Impairment: No Limitations Rn Anesthesiology Required: No Beliefs That Will Affect Care: None marital status: Single Current Living Situation: Alone current occupational status: retired Feels Safe at Home: Yes Assistive Devices: Walker Review of Systems A total of 10 systems reviewed and were otherwise negative Physical Exam Vital Signs Vital Signs - 24 hr 07/20/21 08:30 07/20/21 08:32 07/20/21 09:00 Temperature 36.9 C Temperature Source Oral Pulse Rate 88 87 90 Pulse Rate [Right Radial] Pulse Rate from SpO2 Sensor 81 87 Pulse Rhythm [Right Radial] Pulse Strength [Right Radial] Respiratory Rate 14 16 22 Respiratory Effort / Characteristics Non-Labored Respiratory Depth Normal Respiratory Pattern Regular Blood Pressure 142/75 H 142/75 H 158/76 H Blood Pressure [Right Arm] Blood Pressure Mean 97 97 103 Blood Pressure Mean [Right Arm] Blood Pressure Position [Right Arm] Pulse Oximetry 95 96 95 Oxygen Delivery Method Room Air Sepsis Recent Fever Within 48 Hours No Sepsis New/Unexplained Change in Mental Status No Sepsis Action Taken by Nursing No Action Required 07/20/21 09:30 07/20/21 10:29 Temperature Temperature Source Pulse Rate 80 Pulse Rate [Right Radial] 74 Pulse Rate from SpO2 Sensor 81 Pulse Rhythm [Right Radial] Regular Pulse Strength [Right Radial] Normal Respiratory Rate 27 H 20 Respiratory Effort / Characteristics Non-Labored Respiratory Depth Normal Respiratory Pattern Regular Blood Pressure Blood Pressure [Right Arm] 88/57 L Blood Pressure Mean Blood Pressure Mean [Right Arm] 67 Blood Pressure Position [Right Arm] Lying Pulse Oximetry 98 93 Oxygen Delivery Method Room Air Sepsis Recent Fever Within 48 Hours Sepsis New/Unexplained Change in Mental Status Sepsis Action Taken by Nursing CONSTITUTIONAL/VITAL SIGNS: Reviewed / noted above. GENERAL: Non-toxic in appearance. INTEGUMENTARY: Warm, dry, and [place]. HEAD: Normocephalic. EYES: without scleral icterus or trauma. ENT/OROPHARYNX: clear and moist. LYMPHADENOPATHY/NECK: Is supple without lymphadenopathy or meningismus. RESPIRATORY: Clear to auscultation bilaterally. No increased work of breathing. CHEST: There is tenderness to palpation of the left lower chest wall. CARDIOVASCULAR: Regular rate and rhythm. GI/ABDOMEN: Soft and nontender. No organomegaly or pulsatile mass. EXTREMITIES: Warm and well perfused. There is discomfort in the right hip with movement of the right hip or axial loading of the leg. BACK: Unable to assess due to patient's discomfort with movement. NEUROLOGICAL: Intact without focal deficits. PSYCHIATRIC: normal affect. MUSCULOSKELETAL: Normally developed with average muscle tone. TRIAGE NURSING DOCUMENTATION REVIEWED. Course Administered Medications Sodium Chloride (Nss 1000ml) 1,000 mls @ 150 mls/hr IV .[id number] [facility] Stop: 07/20/21 16:09 Last Admin: 07/20/21 10:08 Dose: 150 mls/hr Documented by: [id number] Discontinued Medications Morphine Sulfate (Morphine Sulfate 4 Mg/Ml 1 Ml Carp\Vial) 4 mg IV NOW STA Stop: 07/20/21 11:22 Last Admin: 07/20/21 11:27 Dose: 4 mg Documented by: [id number] Medical Decision Making Differential Diagnosis Differential includes close head injury, intracranial bleed, facial trauma, cervical spine trauma, chest and thoracic trauma, abdominal and intra-abdominal trauma, spine neurologic trauma, extremity trauma. Medical Records Attestation: I reviewed the patient's medical records. Home Medications Current Medication List: was personally reviewed by me Laboratory Data Attestation: I reviewed the patient's lab results. Result diagrams: 07/20/21 09:32 07/20/21 09:32 Lab Results 07/20/21 07/20/21 07/20/21 Range/Units 09:32 09:32 09:32 WBC 11.07 H (4.8-10.8) K/uL RBC 4.68 (4.2-5.4) M/uL Hgb 12.1 (12.0-16.0) g/dL Hct 37.7 (37-47) % MCV 80.6 (80-100) fL MCH 25.9 (25-34) pg MCHC 32.1 (32-36) g/dL RDW Std Deviation 49.5 H (36.4-46.3) fL RDW Coeff of Lucio 16.9 H (11.5-14.5) % Plt Count 247 (130-400) K/uL MPV 10.7 H (7.4-10.4) fL Immature Gran % (Auto) 0.4 % Neut % (Auto) 72.3 % Lymph % (Auto) 12.4 % [place] % (Auto) 11.2 % Eos % (Auto) 3.3 % Baso % (Auto) 0.4 % Neut # (Auto) 8.01 H (1.4-6.5) K/uL Lymph # (Auto) 1.37 (1.2-3.4) K/uL [place] # (Auto) 1.24 H (0.11-0.59) K/uL Eos # (Auto) 0.37 (0-0.5) K/uL Baso # (Auto) 0.04 (0-0.2) K/uL Immature Gran # (Auto) 0.04 H (0.00-0.02) K/uL PT 11.0 (9.0-12.0) Seconds INR 1.1 (0.9-1.1) APTT 26.0 (21.0-31.0) Seconds PTT Ratio 1.0 Sodium (136-145) mmol/L Potassium (3.5-5.1) mmol/L Chloride (98-107) mmol/L Carbon Dioxide (21-32) mmol/L Anion Gap (3-11) BUN (7-18) mg/dl Creatinine (0.6-1.2) mg/dl Est Cr Clr Drug Dosing ml/min Est GFR ( Amer) ml/min Est GFR (Non-Af Amer) ml/min BUN/Creatinine Ratio (10-20) Glucose (70-99) mg/dl Calcium (8.5-10.1) mg/dl Total Bilirubin (0.2-1) mg/dl AST (15-37) U/L ALT (12-78) U/L Alkaline Phosphatase (45-117) U/L Total Protein (6.4-8.2) gm/dl Albumin (3.4-5.0) gm/dl Globulin (2.5-4.0) gm/dl Albumin/Globulin Ratio (0.9-2) Urine Color Urine Appearance (Clear) Urine pH (4.5-7.5) Ur Specific [place] (1.000-1.030) Urine Protein (Negative) Urine Glucose (UA) (Negative) Urine Ketones (Negative) Urine Blood (Negative) Urine Nitrite (Negative) Urine Bilirubin (Negative) Urine Urobilinogen (Negative) Ur Leukocyte Esterase (Negative) Urine WBC (Auto) (0-5) /hpf Urine RBC (Auto) (0-4) /hpf U Hyaline Cast (Auto) (0-5) /lpf U Epithel Cells (Auto) (0-5) /lpf Urine Bacteria (Auto) (Negative) COVID-19 Eval Order SARS-CoV-2 (PCR) (Negative) Blood Type B Positive Antibody Screen NEGATIVE 07/20/21 07/20/21 07/20/21 Range/Units 09:32 10:26 10:26 WBC (4.8-10.8) K/uL RBC (4.2-5.4) M/uL Hgb (12.0-16.0) g/dL Hct (37-47) % MCV (80-100) fL MCH (25-34) pg MCHC (32-36) g/dL RDW Std Deviation (36.4-46.3) fL RDW Coeff of Lucio (11.5-14.5) % Plt Count (130-400) K/uL MPV (7.4-10.4) fL Immature Gran % (Auto) % Neut % (Auto) % Lymph % (Auto) % [place] % (Auto) % Eos % (Auto) % Baso % (Auto) % Neut # (Auto) (1.4-6.5) K/uL Lymph # (Auto) (1.2-3.4) K/uL [place] # (Auto) (0.11-0.59) K/uL Eos # (Auto) (0-0.5) K/uL Baso # (Auto) (0-0.2) K/uL Immature Gran # (Auto) (0.00-0.02) K/uL PT (9.0-12.0) Seconds INR (0.9-1.1) APTT (21.0-31.0) Seconds PTT Ratio Sodium 140 (136-145) mmol/L Potassium 3.0 L (3.5-5.1) mmol/L Chloride 106 (98-107) mmol/L Carbon Dioxide 30 (21-32) mmol/L Anion Gap 4.0 (3-11) BUN 13 (7-18) mg/dl Creatinine 1.30 H (0.6-1.2) mg/dl Est Cr Clr Drug Dosing 53.9 ml/min Est GFR ( Amer) 47.5 ml/min Est GFR (Non-Af Amer) 41.0 ml/min BUN/Creatinine Ratio 10.2 (10-20) Glucose 104 H (70-99) mg/dl Calcium 9.4 (8.5-10.1) mg/dl Total Bilirubin 0.7 (0.2-1) mg/dl AST 19 (15-37) U/L ALT 25 (12-78) U/L Alkaline Phosphatase 142 H (45-117) U/L Total Protein 7.8 (6.4-8.2) gm/dl Albumin 3.8 (3.4-5.0) gm/dl Globulin 4.0 (2.5-4.0) gm/dl Albumin/Globulin Ratio 1.0 (0.9-2) Urine Color Urine Appearance (Clear) Urine pH (4.5-7.5) Ur Specific [place] (1.000-1.030) Urine Protein (Negative) Urine Glucose (UA) (Negative) Urine Ketones (Negative) Urine Blood (Negative) Urine Nitrite (Negative) Urine Bilirubin (Negative) Urine Urobilinogen (Negative) Ur Leukocyte Esterase (Negative) Urine WBC (Auto) (0-5) /hpf Urine RBC (Auto) (0-4) /hpf U Hyaline Cast (Auto) (0-5) /lpf U Epithel Cells (Auto) (0-5) /lpf Urine Bacteria (Auto) (Negative) COVID-19 Eval Order Covid19 at [facility] SARS-CoV-2 (PCR) NEGATIVE (Negative) Blood Type Antibody Screen 07/20/21 Range/Units 10:30 WBC (4.8-10.8) K/uL RBC (4.2-5.4) M/uL Hgb (12.0-16.0) g/dL Hct (37-47) % MCV (80-100) fL MCH (25-34) pg MCHC (32-36) g/dL RDW Std Deviation (36.4-46.3) fL RDW Coeff of Lucio (11.5-14.5) % Plt Count (130-400) K/uL MPV (7.4-10.4) fL Immature Gran % (Auto) % Neut % (Auto) % Lymph % (Auto) % [place] % (Auto) % Eos % (Auto) % Baso % (Auto) % Neut # (Auto) (1.4-6.5) K/uL Lymph # (Auto) (1.2-3.4) K/uL [place] # (Auto) (0.11-0.59) K/uL Eos # (Auto) (0-0.5) K/uL Baso # (Auto) (0-0.2) K/uL Immature Gran # (Auto) (0.00-0.02) K/uL PT (9.0-12.0) Seconds INR (0.9-1.1) APTT (21.0-31.0) Seconds PTT Ratio Sodium (136-145) mmol/L Potassium (3.5-5.1) mmol/L Chloride (98-107) mmol/L Carbon Dioxide (21-32) mmol/L Anion Gap (3-11) BUN (7-18) mg/dl Creatinine (0.6-1.2) mg/dl Est Cr Clr Drug Dosing ml/min Est GFR ( Amer) ml/min Est GFR (Non-Af Amer) ml/min BUN/Creatinine Ratio (10-20) Glucose (70-99) mg/dl Calcium (8.5-10.1) mg/dl Total Bilirubin (0.2-1) mg/dl AST (15-37) U/L ALT (12-78) U/L Alkaline Phosphatase (45-117) U/L Total Protein (6.4-8.2) gm/dl Albumin (3.4-5.0) gm/dl Globulin (2.5-4.0) gm/dl Albumin/Globulin Ratio (0.9-2) Urine Color Yellow Urine Appearance Clear (Clear) Urine pH 6.5 (4.5-7.5) Ur Specific [place] 1.012 (1.000-1.030) Urine Protein Negative (Negative) Urine Glucose (UA) Negative (Negative) Urine Ketones Negative (Negative) Urine Blood Negative (Negative) Urine Nitrite Negative (Negative) Urine Bilirubin Negative (Negative) Urine Urobilinogen Negative (Negative) Ur Leukocyte Esterase Trace H (Negative) Urine WBC (Auto) 1-5 (0-5) /hpf Urine RBC (Auto) 0-4 (0-4) /hpf U Hyaline Cast (Auto) 1-5 (0-5) /lpf U Epithel Cells (Auto) 5-10 H (0-5) /lpf Urine Bacteria (Auto) Negative (Negative) COVID-19 Eval Order SARS-CoV-2 (PCR) (Negative) Blood Type Antibody Screen Imaging Data Radiologist's Impression: Chest X-Ray 07/20/21 09:16 SINGLE VIEW CHEST CLINICAL HISTORY: Fall. Right hip pain. FINDINGS: An AP, portable, upright chest radiograph is compared to study dated 08/21/2020 and correlated with chest CT dated 01/17/2019. The heart is enlarged not ing atherosclerotic calcification of the thoracic aorta. The pulmonary vasculature is noncongested. Chronic interstitial thickening is similar to previous. There is mild chronic elevation right hemidiaphragm as well as bibasilar scarring/atelectasis. No airspace consolidation or large pleural effusion is identified. No pneumothorax is seen. The skeletal structures are osteopenic. The bony thorax is grossly intact. Fusion hardware is seen in the lower cervical spine. Surgical clips project over the upper abdomen. IMPRESSION: Cardiomegaly with no acute cardiopulmonary abnormality. ACT 112: Negative or not required by law. Electronically signed by: Xu Tyler M.D. 07/20/2021 10:00 AM Hip X-Ray 07/20/21 09:16 XR hip RT min 2V CLINICAL HISTORY: fall, pain COMPARISON: Pelvis and right hip radiographs November 23, 2020. CT of the abdomen and pelvis July 10, 2021. FINDINGS: Severe right hip osteoarthritis is noted with marked joint space narrowing, osteophytosis with subchondral cystic change and sclerosis. There is apparent foreshortening of the right femoral neck. An impacted acute right femoral neck fracture cannot be excluded. Evaluation is suboptimal given difficulty positioning. Postoperative findings within the lumbar spine are incidentally noted. IMPRESSION: 1. Suspected acute impacted right femoral neck fracture. However, CT is recommended for confirmation. 2. Severe right hip osteoarthritis. ACT 112: Negative or not required by law. Electronically signed by: Hair Green M.D. 07/20/2021 10:[address] 07/20/21 10:16 CT SCAN OF THE BRAIN WITHOUT IV CONTRAST CLINICAL HISTORY: Fall. COMPARISON STUDY: CT of the brain dated 07/17/2021. TECHNIQUE: Unenhanced axial CT scan of the brain is performed from the vertex to the skull base. A dose lowering technique was utilized adhering to the principles of ALARA. FINDINGS: Brain parenchyma: There are age-related involutional changes noting mild subcortical and periventricular microangiopathic change. There is no hemorrhage, mass effect, or evidence of acute territorial ischemia by CT criteria. Campos- white matter differentiation is preserved. No extra-axial fluid collection is seen. Mineralization is noted in the basal ganglia. Ventricles, sulci, cisterns: Prominent secondary to involutional change. Intracranial vasculature: There is atherosclerotic calcification of the cavernous carotid and vertebral arteries. Calvarium: The skeletal structures are osteopenic. No depressed calvarial fracture is identified. Dental caries and periapical lucencies with cortical breakthrough are noted in the partially imaged maxilla. Sinuses and mastoids: The paranasal sinuses are clear. The mastoid air cells are well pneumatized. Orbits: The bony orbits are grossly intact. There are bilateral ocular lens implants. IMPRESSION: 1. There is no hemorrhage, mass effect, or evidence of acute territorial ischemia by CT criteria. 2. Maxillary periodontal disease as above. Follow-up with dentistry is recommended. ACT 112: Negative or not required by law. Electronically signed by: Xu Tyler M.D. 07/20/2021 11:[address] 07/20/21 10:16 CT OF THE LUMBAR SPINE CLINICAL HISTORY: fall, pain COMPARISON STUDY: Lumbar spine CT December 23, 2014. Lumbar spine radiographs June 02, 2019. TECHNIQUE: Helical axial images of the lumbar spine were obtained. Sagittal and coronal reconstructions were viewed. Automated exposure control was utilized for the study. A dose lowering technique was utilized adhering to the principles of ALARA. FINDINGS: This exam is compromised by artifact. No acute lumbar spine fracture is noted. There are stable postoperative findings consistent with L4-L5 discectomy and bilateral pedicle screw fusion. Anterolisthesis of L4 and L5 is similar to radiographs of June 02, 2019. Severe multilevel facet arthrosis is noted as well as moderate multilevel degenerative disc disease. Paravertebral soft tissues are unremarkable. Sacroiliac joints are intact. There are no suspicious osseous lesions. The central canal and neural foramen are suboptimally assessed on CT technique. IMPRESSION: 1. No acute lumbar spine fracture or subluxation although exam compromised by artifact. 2. Stable postoperative findings following L4-L5 discectomy, posterior decompression and bilateral pedicle screw fusion. No change in anterolisthesis of L4 and L5. 3. Severe multilevel facet arthrosis and moderate multilevel degenerative disc disease within the lumbar spine. ACT 112: Negative or not required by law. Electronically signed by: Hair Green M.D. 07/20/2021 11:[address] 07/20/21 10:16 CT pelvis wo con CT DOSE: 2469.42 mGy.cm CLINICAL HISTORY: rt hip pain, fall TECHNIQUE: A dose lowering technique was utilized adhering to the principles of ALARA. COMPARISON STUDY: None. Correlation is made with CT examination of the abdomen and pelvis, most recent was performed on July 10, 2021 FINDINGS: No acute fracture or dislocation seen. Evaluation is limited due to severe diffuse osteopenia. Degenerative changes of bilateral hip joints are again seen, most severe on the right and associated with subchondral cysts, sclerosis and osteophytes. Findings are stable since prior study. Degenerative changes of the lower lumbar spine and orthopedic hardware are again seen, stable since prior. Evaluation of soft tissue shows small fat-containing hernia of anterior right abdominal wall, calcifications of distal abdominal aorta and iliac arteries and decompressed urinary bladder. There are few nondilated loops of large bowel within right lower quadrant and shows diverticuli and mild surrounding fat stranding (6/44) IMPRESSION: 1. No definite acute fracture or dislocation . Limited exam due to severe diffuse osteopenia. 2. Severe degenerative changes of bilateral hip joints, most severe on the right. 3. Collapsed loops of large bowel with diverticuli and questionable surrounding fat stranding within right lower quadrant, might represent developing divertic ulitis. 4. The rest of findings as above. ACT 112: Negative or not required by law. The above report was generated using voice recognition software. It may contain grammatical, syntax or spelling errors. Electronically signed by: Charlotte Stockton DO 07/20/2021 11:24 AM ECG Data Attestation: I personally reviewed and interpreted this ECG as follows: Additional Comments: Twelve-lead EKG: Per my interpretation there is atrial fibrillation at a rate of 77. No ST elevation. No PVCs. Normal QTC. MDM Narrative Patient presents after a fall. She states that she lost her footing and fell. It was not presyncopal. She did not lose consciousness. She complains of right hip pain and left lower chest wall pain and some back pain. Vital signs show hypertension. Twelve-lead EKG shows atrial fibrillation at a rate of 77. CBC and chemistry panel was unremarkable. Urine did not show infection. A CT scan of the pelvis did not show a definite fracture. CT scan of the head and lumbar spine did not show acute traumatic injury. The patient was told the results of the test. She was given some IV morphine and some IV fluids. She is felt to be stable for discharge. Impression & Plan Fall, Multiple contusions Discharge Plan Visit Data Chief Complaint: Fall Stated Complaint: FALL, L RIB & R HIP PAIN ED Provider: Vitaly Rees Discharge Problem: Fall, Multiple contusions Patient Disposition: Home - Self-Care Discharge Instructions Activity Restrictions/Additional Instructions: Your test results today did not show any concerning injuries. Follow-up with your doctor for further care and evaluation in 1-2 days if symptoms persist. Return to the emergency department for worsening or new symptoms or any concerns. You have been examined and treated today on an emergency basis only. This is not a substitute for, or an effort to provide, complete comprehensive medical care. It is impossible to recognize and treat all injuries or illnesses in a single emergency department visit. It is therefore important that you follow up closely with your doctor. Call as soon as possible for an appointment. Forms Stand Alone Forms: [facility], Virtual Emergency Department, Important Visit Information Prescriptions Prescriptions: No Action magnesium oxide 400 mg (241.3 mg magnesium) tablet 200 mg PO BID 90 Days Qty: 90 RF: 3 albuterol sulfate 90 mcg/actuation HFA aerosol inhaler 2 puff inhalation QID PRN (Reason: asthma) Qty: 8.5 RF: 0 Eliquis 5 mg tablet 5 mg PO QAM Qty: 90 RF: 3 potassium chloride 10 mEq tablet extended release 20 meq PO QAM Qty: 180 RF: 3 meclizine 12.5 mg tablet 12.5 - 25 mg PO Q6H PRN (Reason: dizziness) Qty: 30 RF: 5 lamotrigine 200 mg tablet,disintegrating 200 mg PO BID Qty: 60 RF: 5 mirtazapine 15 mg tablet 15 mg PO HS Qty: 30 RF: 11 furosemide 20 mg tablet 40 mg PO QAM Qty: 60 RF: 5 lamotrigine 100 mg tablet,disintegrating 100 mg PO BID Qty: 60 RF: 11 levetiracetam 100 mg/mL solution 500 mg PO BID Qty: 300 RF: 11 gabapentin 300 mg capsule 300 mg PO TID RF: 0 famotidine 20 mg tablet 20 mg PO HS RF: 0 omeprazole 20 mg capsule,delayed release(DR/EC) 20 mg PO DAILY RF: 0 diclofenac sodium 1 % gel 1 ea TOPICAL QID MDD 16 grams RF: 0 Referrals Referrals: Marcelo Escoto III, MD [Primary Care Provider] - Discharge Problem: Fall Qualifiers: Encounter type: initial encounter Qualified Code(s): W19.XXXA - Unspecified fall, initial encounter
[2021-07-20 09:49] LABS: Basophils # (auto) 0.04 K/uL (0-0.2); Basophils % (auto) 0.4 %; Eosinophils # (auto) 0.37 K/uL (0-0.5); Eosinophils % (auto) 3.3 %; Hematocrit (blood only) 37.7 % (37-47); Hemoglobin 12.1 g/dL (12.0-16.0); Immature Granulocytes # (auto) 0.04 K/uL (0.00-0.02); Immature Granulocytes % (auto) 0.4 %; Lymphocytes # (auto) 1.37 K/uL (1.2-3.4); Lymphocytes % (auto) 12.4 %; Mean Corpuscular Hemoglobin 25.9 pg (25-34); Mean Corpuscular Hgb Conc 32.1 g/dL (32-36); Mean Corpuscular Volume 80.6 fL (80-100); Mean Platelet Volume 10.7 fL (7.4-10.4); Monocytes # (auto) 1.24 K/uL (0.11-0.59); Monocytes % (auto) 11.2 %; Neutrophils # (auto) 8.01 K/uL (1.4-6.5); Neutrophils % (auto) 72.3 %; Platelet Count 247 K/uL (130-400); RDW Coefficient of Variation 16.9 % (11.5-14.5); RDW Standard Deviation 49.5 fL (36.4-46.3); Red Blood Count 4.68 M/uL (4.2-5.4); White Blood Count 11.07 K/uL (4.8-10.8)
[2021-07-20 09:58] LABS: INR 1.1 (0.9-1.1)
--- NOTE | 2021-07-20 10:02 | XRay Report ---
XR hip RT min 2V CLINICAL HISTORY: fall, pain COMPARISON: Pelvis and right hip radiographs November 23, 2020. CT of the abdomen and pelvis July 10, 2021. FINDINGS: Severe right hip osteoarthritis is noted with marked joint space narrowing, osteophytosis with subchondral cystic change and sclerosis. There is apparent foreshortening of the right femoral n juan manuel. An impacted acute right femoral neck fracture cannot be excluded. Evaluation is suboptimal given difficulty positioning. Postoperative findings within the lumbar spine are incidentally noted. IMPRESSION: 1. Suspected acute impacted right femoral neck fracture. However, CT is recommended for confirmation. 2. Severe right hip osteoarthritis. ACT 112: Negative or not required by law. Electronically signed by: Hair Green M.D. 07/20/2021 10:01 AM
--- NOTE | 2021-07-20 10:02 | XRay Report ---
SINGLE VIEW CHEST CLINICAL HISTORY: Fall. Right hip pain. FINDINGS: An AP, portable, upright chest radiograph is compared to study dated 08/21/2020 and correlat ed with chest CT dated 01/17/2019. The heart is enlarged noting atherosclerotic calcification of the th oracic aorta. The pulmonary vasculature is noncongested. Chronic interstitial thickening is similar t o previous. There is mild chronic elevation right hemidiaphragm as well as bibasilar scarring/atelect asis. No airspace consolidation or large pleural effusion is identified. No pneumothorax is seen. The skeletal structures are osteopenic. The bony thorax is grossly intact. Fusion hardware is seen in th e lower cervical spine. Surgical clips project over the upper abdomen. IMPRESSION: Cardiomegaly with no acute cardiopulmonary abnormality. ACT 112: Negative or not required by law. Electronically signed by: Xu Tyler M.D. 07/20/2021 10:00 AM
[2021-07-20 10:06] LABS: Albumin Level 3.8 gm/dl (3.4-5.0); BUN Creatinine Ratio 10.2 (10-20); Calcium 9.4 mg/dl (8.5-10.1); Creatinine Clr Calc Pharmacy 53.9 ml/min; Est GFR (African American) 47.5 ml/min
[2021-07-20 10:09] LABS: Bilirubin,Total 0.7 mg/dl (0.2-1); Total Protein 7.8 gm/dl (6.4-8.2)
[2021-07-20 10:51] LABS: Appearance Urine Clear (Clear); Bacteria Urine Automated Negative (Negative); Bilirubin Urine Negative (Negative); Blood Urine Negative (Negative); Color Urine Yellow; Glucose Urine UA Negative (Negative); Ketones Urine Negative (Negative); Leukocyte Esterase Urine Trace (Negative); Nitrite Urine Negative (Negative); Protein Urine Negative (Negative); RBC Urine Automated 0-4 /hpf (0-4); Specific Gravity Urine 1.012 (1.000-1.030); Urobilinogen Urine Negative (Negative); pH Urine 6.5 (4.5-7.5)
--- NOTE | 2021-07-20 11:04 | CT Scan Report ---
CT SCAN OF THE BRAIN WITHOUT IV CONTRAST CLINICAL HISTORY: Fall. COMPARISON STUDY: CT of the brain dated 07/17/2021. TECHNIQUE: Unenhanced axial CT scan of the brain is performed from the vertex to the skull base. A do se lowering technique was utilized adhering to the principles of ALARA. FINDINGS: Brain parenchyma: There are age-related involutional changes noting mild subcortical and periventric ular microangiopathic change. There is no hemorrhage, mass effect, or evidence of acute territorial i schemia by CT criteria. Campos-white matter differentiation is preserved. No extra-axial fluid collecti on is seen. Mineralization is noted in the basal ganglia. Ventricles, sulci, cisterns: Prominent secondary to involutional change. Intracranial vasculature: There is atherosclerotic calcification of the cavernous carotid and vertebr al arteries. Calvarium: The skeletal structures are osteopenic. No depressed calvarial fracture is identified. Den jono caries and periapical lucencies with cortical breakthrough are noted in the partially imaged maxi lla. Sinuses and mastoids: The paranasal sinuses are clear. The mastoid air cells are well pneumatized. Orbits: The bony orbits are grossly intact. There are bilateral ocular lens implants. IMPRESSION: 1. There is no hemorrhage, mass effect, or evidence of acute territorial ischemia by CT criteria. 2. Maxillary periodontal disease as above. Follow-up with dentistry is recommended. ACT 112: Negative or not required by law. Electronically signed by: Xu Tyler M.D. 07/20/2021 11:03 AM
--- NOTE | 2021-07-20 11:18 | CT Scan Report ---
CT OF THE LUMBAR SPINE CLINICAL HISTORY: fall, pain COMPARISON STUDY: Lumbar spine CT December 23, 2014. Lumbar spine radiographs June 02, 2019. TECHNIQUE: Helical axial images of the lumbar spine were obtained. Sagittal and coronal reconstruct ions were viewed. Automated exposure control was utilized for the study. A dose lowering technique was utilized adhering to the principles of ALARA. FINDINGS: This exam is compromised by artifact. No acute lumbar spine fracture is noted. There are st able postoperative findings consistent with L4-L5 discectomy and bilateral pedicle screw fusion. Ante rolisthesis of L4 and L5 is similar to radiographs of June 02, 2019. Severe multilevel facet arthrosi s is noted as well as moderate multilevel degenerative disc disease. Paravertebral soft tissues are u nremarkable. Sacroiliac joints are intact. There are no suspicious osseous lesions. The central canal and neural foramen are suboptimally assessed on CT technique. IMPRESSION: 1. No acute lumbar spine fracture or subluxation although exam compromised by artifact. 2. Stable postoperative findings following L4-L5 discectomy, posterior decompression and bilateral pe dicle screw fusion. No change in anterolisthesis of L4 and L5. 3. Severe multilevel facet arthrosis and moderate multilevel degenerative disc disease within the lum bar spine. ACT 112: Negative or not required by law. Electronically signed by: Hair Green M.D. 07/20/2021 11:17 AM
[2021-07-20] MEDS ORDERED: MoRPHine SULFATE 4 MG/ML 1 ML CARP\\VIAL IV STA (11:21)
--- NOTE | 2021-07-20 11:25 | CT Scan Report ---
CT pelvis wo con CT DOSE: 2469.42 mGy.cm CLINICAL HISTORY: rt hip pain, fall TECHNIQUE: A dose lowering technique was utilized adhering to the principles of ALARA. COMPARISON STUDY: None. Correlation is made with CT examination of the abdomen and pelvis, most rec ent was performed on July 10, 2021 FINDINGS: No acute fracture or dislocation seen. Evaluation is limited due to severe diffuse osteopenia. Degenerative changes of bilateral hip joints are again seen, most severe on the right and associated with subchondral cysts, sclerosis and osteophytes. Findings are stable since prior study. Degenerative changes of the lower lumbar spine and orthopedic hardware are again seen, stable since p rior. Evaluation of soft tissue shows small fat-containing hernia of anterior right abdominal wall, calcifi cations of distal abdominal aorta and iliac arteries and decompressed urinary bladder. There are few nondilated loops of large bowel within right lower quadrant and shows diverticuli and m ild surrounding fat stranding () IMPRESSION: 1. No definite acute fracture or dislocation . Limited exam due to severe diffuse osteopenia. 2. Severe degenerative changes of bilateral hip joints, most severe on the right. 3. Collapsed loops of large bowel with diverticuli and questionable surrounding fat stranding within right lower quadrant, might represent developing diverticulitis. 4. The rest of findings as above. ACT 112: Negative or not required by law. The above report was generated using voice recognition software. It may contain grammatical, syntax o r spelling errors. Electronically signed by: Charlotte Stockton DO 07/20/2021 11:24 AM
--- NOTE | 2021-07-20 16:06 | History & Physical Report ---
Date of Service July 20, 2021 Assessment & Plan (1) Fall: Plan: Patient is status post fall at home. Work-up in ER had a hip x-ray that was concerning for right femoral neck fracture, not seen on CT. Patient does continue to complain of pain in this area. If patient continues to have issues with ambulation and pain, can consider orthopedics consult and MRI imaging. PT/OT evaluation (2) Behavior concern in adult: Plan: Patient seems to be somewhat anxious and suspicious of being in the hospital. From my observation and Dr. Colindres's previously documented concerns, I suspect there may be some issues with worsening dementia with concomitant depression. I will ask psychiatry to evaluate for further recommendations. I suspect patient may need to ultimately be placed but will see patient does during her hospital course. (3) Small bowel obstruction: Plan: Reason for previous admission, seems to be resolved. Okay to feed monitor for symptoms (4) Lumbar radiculopathy: Plan: Imaging did show severe multilevel degenerative disc disease PT/OT as noted above (5) Hypertension: Plan: Admission BP is 135/62, continue to monitor (6) Hyperlipidemia: Plan: Continue medications as ordered (7) Atrial fibrillation: Plan: Patient is rate controlled, continue medications as ordered. She is on Eliquis 5 mg twice daily History of Present Illness Chief Complaint: Fall Primary Care Provider: Marcelo Escoto MD This is a 71-year-old female with past medical history of lumbar radiculopathy, questionable seizure-like activity, previous small bowel obstruction that presents today after being found down. Patient is somewhat confused and is an unreliable historian. From records, appears she was admitted here from 07/10-07/19. She was discharged yesterday to home by Dr. Colindres. I see from her documentation that she was initially admitted with a small bowel obstruction that was self-limited. She logan s ongoing atrial fibrillation, GERD, and hypertension. Unfortunately, the patient seem to have some psychiatric disturbance while she was in the hospital, I was very suspicious and angry at the time of discharge. He did converse with the niece and it was felt that her the best course would be for her to be discharged into her own home. Per ER physician, patient was visited by home care nursing this morning. They found the patient down on the ground. She apparently lost her footing and fell onto her right hip. When she arrived in the ER, he documents that she complained of right hip and left shoulder pain. Work-up included multiple images which were negative for acute injury. Per my conversation with the patient, she was "just sleeping "when someone came to her house and brought her to the hospital. She seemed to be upset that she was brought here but does not have much insight. She seems to be somewhat upset with the hospital staff are bothering her but is in no acute cardiopulmonary distress. She is complaining some pain in her right hip will be repositioned by nursing staff. Allergies Allergy/AdvReac Type Severity Reaction Status Date / Time latex Allergy Intermediate Rash, itchy Verified 07/20/21 15:31 adhesive Allergy Mild ITCHY Verified 07/20/21 15:31 bacitracin Allergy Unknown Unknown Verified 07/20/21 15:31 [From Neosporin ([id number])] neomycin Allergy Unknown Unknown Verified 07/20/21 15:31 [From Neosporin ([id number])] polymyxin B Allergy Unknown Unknown Verified 07/20/21 15:31 [From Neosporin ([id number])] metoclopramide [From Reglan] AdvReac Intermediate dyskinetic Verified 07/20/21 15:31 reaction Home Medications Medication Instructions Recorded Confirmed Type magnesium oxide 400 mg (241.3 mg 200 mg PO BID 90 Days #90 tab 07/28/20 07/20/21 Rx magnesium) tablet gabapentin 300 mg capsule 300 mg PO TID 08/21/20 07/20/21 History furosemide 20 mg tablet 40 mg PO QAM #60 tab 09/15/20 07/20/21 Rx albuterol sulfate 90 mcg/actuation 2 puff INHALATION QID PRN #8.5 g 09/16/20 07/20/21 Rx aerosol inhaler lamotrigine 100 mg disintegrating 100 mg PO BID #60 tab 09/27/20 07/20/21 Rx tablet levetiracetam 100 mg/mL oral 500 mg PO BID #300 ml 09/27/20 07/20/21 Rx solution apixaban 5 mg tablet (Eliquis) 5 mg PO QAM #90 tab 12/22/20 07/20/21 Rx potassium chloride 10 mEq 20 meq PO QAM #180 tab 04/05/21 07/20/21 Rx tablet,extended release meclizine 12.5 mg tablet 12.5 - 25 mg PO Q6H PRN #30 tab 05/26/21 07/20/21 Rx mirtazapine 15 mg tablet 15 mg PO HS #30 tab 06/21/21 07/20/21 Rx lamotrigine 200 mg disintegrating 200 mg PO BID #60 tab 07/04/21 07/20/21 Rx tablet famotidine 20 mg tablet 20 mg PO HS 07/09/21 07/20/21 History omeprazole 20 mg capsule,delayed 20 mg PO DAILY 07/09/21 07/20/21 History release diclofenac sodium 1 % topical gel 1 ea TOPICAL QID MDD 16 grams 07/10/21 07/20/21 History Past Med/Surg History Medical History Asthma Atrial fibrillation eliquis daily---follows with Dr. 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 Holm, reason for lamictal/keppra Temporomandibular joint disorder Doesn't get locked up Vertigo Surgical History History of appendectomy History of arthroplasty of left knee History of cataract surgery bilateral History of cervical discectomy 2008 Dr. Moreno C5-C6 C6-C7 History of colonoscopy History of esophagogastroduodenoscopy (EGD) History of tooth extraction History of total hysterectomy with bilateral salpingo-oophorectomy (BSO) History of total left knee replacement (TKR) History of total right knee replacement (TKR) History of vascular access device hx of Right IJ triple lumen central venous cath 2010--no longer has S/P cholecystectomy Family History Other Family history non-contributory No family history of adverse response to anesthesia Social History Smoking Status: Never smoker Second Hand Exposure: No; Hx Alcohol Use: No Hx Substance Use: No Preferred Language: Setswana Communication Ability: Effective Visual Impairment: No Limitations Vessel Welder Required: No Beliefs That Will Affect Care: None marital status: Single Current Living Situation: Alone current occupational status: retired Feels Safe at Home: Yes Assistive Devices: Walker Review of Systems Review of Systems: Review of systems deferred as patient is an unreliable historian Physical Exam Constitutional: + combative; no acute distress Neck: trachea midline, no thyromegaly Respiratory: normal respiratory effort Auscultation: lungs clear to auscultation bilaterally; no crackles, no rales, no rhonchi and no wheezes Cardiovascular: Rate/Rhythm: regular rate and regular rhythm Heart Sounds: normal S1, normal S2 and + murmur Gastrointestinal (Abdomen): Inspection/Auscultation: abdomen normal to inspection Percussion/Palpation: abdomen soft; abdomen nontender, no guarding, abdomen not rigid and no hepatosplenomegaly Skin: no rashes, warm and dry Psychiatric: Orientation: alert and + guarded Apperance: + disheveled Mood: + anxious mood and + irritable mood Insight: + poor insight Results & Data Results & Data ([facility]) Vital Signs (Past 12 Hours) Vital Signs Temp Pulse Pulse Resp BP BP Pulse Ox 07/20/21 15:20 78 15 07/20/21 15:10 86 20 07/20/21 15:00 79 17 07/20/21 14:50 87 25 H 07/20/21 14:40 123 H 19 07/20/21 14:30 100 H 18 07/20/21 14:20 90 31 H 07/20/21 14:10 88 15 96 07/20/21 14:00 83 17 07/20/21 13:50 94 H 21 96 07/20/21 13:40 89 17 97 07/20/21 13:01 79 19 135/62 95 07/20/21 12:31 76 16 90/75 L 95 07/20/21 12:00 78 24 158/82 H 92 07/20/21 11:31 80 17 131/78 90 07/20/21 11:02 83 16 153/95 H 07/20/21 10:31 73 16 83/66 L 96 07/20/21 10:29 74 20 88/57 L 93 07/20/21 10:01 83 26 H 120/76 07/20/21 09:30 80 27 H 98 07/20/21 09:00 90 22 158/76 H 95 07/20/21 08:32 36.9 C 87 16 142/75 H 96 07/20/21 08:30 88 14 142/75 H 95 Laboratory Results Laboratory Results WBC 11.07 K/uL (4.8-10.8) H 07/20/21 09:32 RBC 4.68 M/uL (4.2-5.4) 07/20/21 09:32 Hgb 12.1 g/dL (12.0-16.0) 07/20/21 09:32 Hct 37.7 % (37-47) 07/20/21 09:32 MCV 80.6 fL (80-100) 07/20/21 09:32 MCH 25.9 pg (25-34) 07/20/21 09:32 MCHC 32.1 g/dL (32-36) 07/20/21 09:32 RDW Std Deviation 49.5 fL (36.4-46.3) H 07/20/21 09:32 RDW Coeff of Lucio 16.9 % (11.5-14.5) H 07/20/21 09:32 Plt Count 247 K/uL (130-400) 07/20/21 09:32 MPV 10.7 fL (7.4-10.4) H 07/20/21 09:32 Immature Gran % (Auto) 0.4 % 07/20/21 09:32 Neut % (Auto) 72.3 % 07/20/21 09:32 Lymph % (Auto) 12.4 % 07/20/21 09:32 [place] % (Auto) 11.2 % 07/20/21 09:32 Eos % (Auto) 3.3 % 07/20/21 09:32 Baso % (Auto) 0.4 % 07/20/21 09:32 Neut # (Auto) 8.01 K/uL (1.4-6.5) H 07/20/21 09:32 Lymph # (Auto) 1.37 K/uL (1.2-3.4) 07/20/21 09:32 [place] # (Auto) 1.24 K/uL (0.11-0.59) H 07/20/21 09:32 Eos # (Auto) 0.37 K/uL (0-0.5) 07/20/21 09:32 Baso # (Auto) 0.04 K/uL (0-0.2) 07/20/21 09:32 Immature Gran # (Auto) 0.04 K/uL (0.00-0.02) H 07/20/21 09:32 PT 11.0 Seconds (9.0-12.0) 07/20/21 09:32 INR 1.1 (0.9-1.1) 07/20/21 09:32 APTT 26.0 Seconds (21.0-31.0) 07/20/21 09:32 PTT Ratio 1.0 07/20/21 09:32 Sodium 140 mmol/L (136-145) 07/20/21 09:32 Potassium 3.0 mmol/L (3.5-5.1) L 07/20/21 09:32 Chloride 106 mmol/L (98-107) 07/20/21 09:32 Carbon Dioxide 30 mmol/L (21-32) 07/20/21 09:32 Anion Gap 4.0 (3-11) 07/20/21 09:32 BUN 13 mg/dl (7-18) 07/20/21 09:32 Creatinine 1.30 mg/dl (0.6-1.2) H 07/20/21 09:32 Est Cr Clr Drug Dosing 53.9 ml/min 07/20/21 09:32 Est GFR ( Amer) 47.5 ml/min 07/20/21 09:32 Est GFR (Non-Af Amer) 41.0 ml/min 07/20/21 09:32 BUN/Creatinine Ratio 10.2 (10-20) 07/20/21 09:32 Glucose 104 mg/dl (70-99) H 07/20/21 09:32 Calcium 9.4 mg/dl (8.5-10.1) 07/20/21 09:32 Total Bilirubin 0.7 mg/dl (0.2-1) 07/20/21 09:32 AST 19 U/L (15-37) 07/20/21 09:32 ALT 25 U/L (12-78) 07/20/21 09:32 Alkaline Phosphatase 142 U/L (45-117) H 07/20/21 09:32 Total Protein 7.8 gm/dl (6.4-8.2) 07/20/21 09:32 Albumin 3.8 gm/dl (3.4-5.0) 07/20/21 09:32 Globulin 4.0 gm/dl (2.5-4.0) 07/20/21 09:32 Albumin/Globulin Ratio 1.0 (0.9-2) 07/20/21 09:32 Urine Color Yellow 07/20/21 10:30 Urine Appearance Clear (Clear) 07/20/21 10:30 Urine pH 6.5 (4.5-7.5) 07/20/21 10:30 Ur Specific [place] 1.012 (1.000-1.030) 07/20/21 10:30 Urine Protein Negative (Negative) 07/20/21 10:30 Urine Glucose (UA) Negative (Negative) 07/20/21 10:30 Urine Ketones Negative (Negative) 07/20/21 10:30 Urine Blood Negative (Negative) 07/20/21 10:30 Urine Nitrite Negative (Negative) 07/20/21 10:30 Urine Bilirubin Negative (Negative) 07/20/21 10:30 Urine Urobilinogen Negative (Negative) 07/20/21 10:30 Ur Leukocyte Esterase Trace (Negative) H 07/20/21 10:30 Urine WBC (Auto) 1-5 /hpf (0-5) 07/20/21 10:30 Urine RBC (Auto) 0-4 /hpf (0-4) 07/20/21 10:30 U Hyaline Cast (Auto) 1-5 /lpf (0-5) 07/20/21 10:30 U Epithel Cells (Auto) 5-10 /lpf (0-5) H 07/20/21 10:30 Urine Bacteria (Auto) Negative (Negative) 07/20/21 10:30 COVID-19 Eval Order Covid19 at [facility] 07/20/21 10:26 SARS-CoV-2 (PCR) NEGATIVE (Negative) 07/20/21 10:26 Blood Type B Positive 07/20/21 09:32 Antibody Screen NEGATIVE 07/20/21 09:32 Impressions Chest X-Ray 07/20/21 09:16 SINGLE VIEW CHEST CLINICAL HISTORY: Fall. Right hip pain. FINDINGS: An AP, portable, upright chest radiograph is compared to study dated 08/21/2020 and correlated with chest CT dated 01/17/2019. The heart is enlarged noting atherosclerotic calcification of the thoracic aorta. The pulmonary vasculature is noncongested. Chronic interstitial thickening is similar to previous. There is mild chronic elevation right hemidiaphragm as well as bibasilar scarring/atelectasis. No airspace consolidation or large pleural ef fusion is identified. No pneumothorax is seen. The skeletal structures are osteopenic. The bony thorax is grossly intact. Fusion hardware is seen in the lower cervical spine. Surgical clips project over the upper abdomen. IMPRESSION: Cardiomegaly with no acute cardiopulmonary abnormality. ACT 112: Negative or not required by law. Electronically signed by: Xu Tyler M.D. 07/20/2021 10:00 AM Hip X-Ray 07/20/21 09:16 XR hip RT min 2V CLINICAL HISTORY: fall, pain COMPARISON: Pelvis and right hip radiographs November 23, 2020. CT of the abdomen and pelvis July 10, 2021. FINDINGS: Severe right hip osteoarthritis is noted with marked joint space narrowing, osteophytosis with subchondral cystic change and sclerosis. There is apparent foreshortening of the right femoral neck. An impacted acute right femoral neck fracture cannot be excluded. Evaluation is suboptimal given difficulty positioning. Postoperative findings within the lumbar spine are incidentally noted. IMPRESSION: 1. Suspected acute impacted right femoral neck fracture. However, CT is recommended for confirmation. 2. Severe right hip osteoarthritis. ACT 112: Negative or not required by law. Electronically signed by: Hair Green M.D. 07/20/2021 10:[address] 07/20/21 10:16 CT SCAN OF THE BRAIN WITHOUT IV CONTRAST CLINICAL HISTORY: Fall. COMPARISON STUDY: CT of the brain dated 07/17/2021. TECHNIQUE: Unenhanced axial CT scan of the brain is performed from the vertex to the skull base. A dose lowering technique was utilized adhering to the principles of ALARA. FINDINGS: Brain parenchyma: There are age-related involutional changes noting mild subcortical and periventricular microangiopathic change. There is no hemorrhage, mass effect, or evidence of acute territorial ischemia by CT criteria. Campos- white matter differentiation is preserved. No extra-axial fluid collection is seen. Mineralization is noted in the basal ganglia. Ventricles, sulci, cisterns: Prominent secondary to involutional change. Intracranial vasculature: There is atherosclerotic calcification of the cavernous carotid and vertebral arteries. Calvarium: The skeletal structures are osteopenic. No depressed calvarial fracture is identified. Dental caries and periapical lucencies with cortical breakthrough are noted in the partially imaged maxilla. Sinuses and mastoids: The paranasal sinuses are clear. The mastoid air cells are well pneumatized. Orbits: The bony orbits are grossly intact. There are bilateral ocular lens implants. IMPRESSION: 1. There is no hemorrhage, mass effect, or evidence of acute territorial ischemia by CT criteria. 2. Maxillary periodontal disease as above. Follow-up with dentistry is recommended. ACT 112: Negative or not required by law. Electronically signed by: Xu Tyler M.D. 07/20/2021 11:[address] 07/20/21 10:16 CT OF THE LUMBAR SPINE CLINICAL HISTORY: fall, pain COMPARISON STUDY: Lumbar spine CT December 23, 2014. Lumbar spine radiographs June 02, 2019. TECHNIQUE: Helical axial images of the lumbar spine were obtained. Sagittal and coronal reconstructions were viewed. Automated exposure control was utilized for the study. A dose lowering technique was utilized adhering to the principles of ALARA. FINDINGS: This exam is compromised by artifact. No acute lumbar spine fracture is noted. There are stable postoperative findings consistent with L4-L5 discectomy and bilateral pedicle screw fusion. Anterolisthesis of L4 and L5 is similar to radiographs of June 02, 2019. Severe multilevel facet arthrosis is noted as well as moderate multilevel degenerative disc disease. Paravertebral soft tissues are unremarkable. Sacroiliac joints are intact. There are no suspicious osseous lesions. The central canal and neural foramen are suboptimally assessed on CT technique. IMPRESSION: 1. No acute lumbar spine fracture or subluxation although exam compromised by artifact. 2. Stable postoperative findings following L4-L5 discectomy, posterior decompression and bilateral pedicle screw fusion. No change in anterolisthesis of L4 and L5. 3. Severe multilevel facet arthrosis and moderate multilevel degenerative disc disease within the lumbar spine. ACT 112: Negative or not required by law. Electronically signed by: Hair Green M.D. 07/20/2021 11:[address] 07/20/21 10:16 CT pelvis wo con CT DOSE: 2469.42 mGy.cm CLINICAL HISTORY: rt hip pain, fall TECHNIQUE: A dose lowering technique was utilized adhering to the principles of ALARA. COMPARISON STUDY: None. Correlation is made with CT examination of the abdomen and pelvis, most recent was performed on July 10, 2021 FINDINGS: No acute fracture or dislocation seen. Evaluation is limited due to severe diffuse osteopenia. Degenerative changes of bilateral hip joints are again seen, most severe on the right and associated with subchondral cysts, sclerosis and osteophytes. Findings are stable since prior study. Degenerative changes of the lower lumbar spine and orthopedic hardware are again seen, stable since prior. Evaluation of soft tissue shows small fat-containing hernia of anterior right abdominal wall, calcifications of distal abdominal aorta and iliac arteries and decompressed urinary bladder. There are few nondilated loops of large bowel within right lower quadrant and shows diverticuli and mild surrounding fat stranding (/44) IMPRESSION: 1. No definite acute fracture or dislocation . Limited exam due to severe diffuse osteopenia. 2. Severe degenerative changes of bilateral hip joints, most severe on the right. 3. Collapsed loops of large bowel with diverticuli and questionable surrounding fat stranding within right lower quadrant, might represent developing diverticulitis. 4. The rest of findings as above. ACT 112: Negative or not required by law. The above report was generated using voice recognition software. It may contain grammatical, syntax or spelling errors. Electronically signed by: Charlotte Stockton DO 07/20/2021 11:24 AM PG Care Time/CCT Total # of Minutes Spent Total Time Spent with Patient: Total time spent is greater than 50% in coordination of care (as documented) at patient's floor/unit and/or counseling patient: Coding Level of Care Code INT OBSERVATION CARE 70M LVL 3 Diagnoses Fall W19.XXXA Encounter type: initial encounter Small bowel obstruction K56.609 Lumbar radiculopathy M54.16 Hypertension I10 Hypertension type: essential hypertension Hyperlipidemia E78.5 Atrial fibrillation I48.2 Atrial fibrillation type: chronic Behavior concern in adult F69 (1) Fall Encounter type: initial encounter Qualified Code(s): W19.XXXA - Unspecified fall, initial encounter (2) Hypertension Hypertension type: essential hypertension Qualified Code(s): I10 - Essential (primary) hypertension (3) Atrial fibrillation Atrial fibrillation type: chronic Qualified Code(s): I48.2 - Chronic atrial fibrillation
[2021-07-20] MEDS ORDERED: ONDANSETRON INJ 2 MG/ML 2 ML VIAL IV PRN (18:22)
[2021-07-20] MEDS ORDERED: ALBUTEROL HFA 8 GM INHALER INH PRN (18:22)
[2021-07-20] MEDS ORDERED: POTASSIUM CHLORIDE CRTAB 20 MEQ TABCR PO STA (19:01)
[2021-07-20] MEDS: ACETAMINOPHEN 325 MG TAB PO PRN (19:20)
[2021-07-20] MEDS: FAMOTIDINE 20 MG TAB PO SCH (20:14)
[2021-07-20] MEDS: MAGNESIUM OXIDE 400 MG TAB PO SCH (20:15)
[2021-07-20] MEDS: GABAPENTIN 300 MG CAP PO SCH (20:16)
[2021-07-20] MEDS: lamoTRIgine 100 MG TAB PO SCH (20:16)
[2021-07-20] MEDS ORDERED: MIRTAZAPINE TAB 15 MG TAB PO SCH (21:00)
[2021-07-20] MEDS ORDERED: LAMOTRIGINE 100 MG PO SCH (21:00)
--- NOTE | 2021-07-21 05:54 | Electrocardiogram Report ---
Test Reason : Blood Pressure : / mmHG Vent. Rate : 077 BPM Atrial Rate : 375 BPM P-R Int : 000 ms QRS Dur : 084 ms QT Int : 374 ms P-R-T Axes : 000 002 -03 degrees QTc Int : 423 ms Poor data quality, interpretation may be adversely affected Atrial fibrillation Nonspecific ST and T wave abnormality Abnormal ECG When compared with ECG of 09-JUL-2021 23:25, Vent. rate has decreased BY 50 BPM Confirmed by Peter Luna ([id number]) on 07/21/2021 5:54:18 AM Referred By: REFERRED SELF Confirmed By:Peter Luna
[2021-07-21 07:09] LABS: Albumin Globulin Ratio 0.9 (0.9-2); Albumin Level 3.1 gm/dl (3.4-5.0); BUN Creatinine Ratio 11.7 (10-20); Bilirubin,Total 0.7 mg/dl (0.2-1); Calcium 8.5 mg/dl (8.5-10.1); Creatinine Clr Calc Pharmacy 70.8 ml/min; Est GFR (Non-African American) 56.9 ml/min; Globulin 3.6 gm/dl (2.5-4.0); Potassium 3.2 mmol/L (3.5-5.1); Total Protein 6.7 gm/dl (6.4-8.2)
[2021-07-21] MEDS: GABAPENTIN 300 MG CAP PO SCH ×4 (08:19→20:03)
[2021-07-21] MEDS: FUROSEMIDE 40 MG TAB PO SCH (08:19)
[2021-07-21] MEDS: POTASSIUM CHLORIDE CRTAB 20 MEQ TABCR PO SCH (08:19)
[2021-07-21] MEDS: PANTOprazole 40 MG TAB PO SCH (08:19)
[2021-07-21] MEDS: MAGNESIUM OXIDE 400 MG TAB PO SCH ×2 (08:19→20:04)
[2021-07-21] MEDS: lamoTRIgine 100 MG TAB PO SCH ×2 (08:19→20:04)
[2021-07-21] MEDS: APIXABAN 5 MG TABLET PO SCH (08:20)
[2021-07-21] MEDS: ACETAMINOPHEN 325 MG TAB PO PRN ×2 (15:00→23:26)
--- NOTE | 2021-07-21 15:37 | Hospitalist Progress Note ---
Date of Service July 21, 2021 Assessment & Plan (1) Fall: Plan: Patient is status post fall at home. Work-up in ER had a hip x-ray that was concerning for right femoral neck fracture, not seen on CT. - PT/OT evaluation - Not having any pain at present. Worked with PT. Plan for rehab. (2) Behavior concern in adult: Plan: Patient seems to be somewhat anxious and suspicious of being in the hospital. This appears to wax/wane and may be medication-related. - Seen by psychiatry who will recommend adjustments to her medication. (3) Small bowel obstruction: Plan: Reason for previous admission; resolved. - Monitor (4) Lumbar radiculopathy: Plan: Imaging did show severe multilevel degenerative disc disease. - PT/OT as noted above (5) Hypertension: Plan: BP was 120/70 today. - Continue Lasix (6) Atrial fibrillation: Plan: Patient is generally rate-controlled when calm. During anxious periods, she does go higher. - Continue Eliquis 5 mg twice daily - Not on beta-erlinda or calcium channel erlinda (7) Seizure disorder: Plan: No indication of seizure in the hospital. - Continue Lamictal and gabapentin - Holding Keppra as this appears to precipitate her aggression and anxiety - Will discuss with neurology (8) Chronic obstructive pulmonary disease: Plan: No acute issues. - DuoNebs PRN (9) Depression with anxiety: Plan: With quite labile emotions here-mildly confused at times, now improved. Is often tearful and frustrated with her multiple medical issues. - Hold mirtazapine per psychiatry -> Presently psychiatry do *NOT* feel she has capacity. (10) DVT prophylaxis: Plan: On apixaban for afib Admission and Anticipated Discharge Date Admission Date: July 20, 2021 Subjective Continues to be combative and agitated with the staff. Review of Systems Review of Systems: Unobtainable due to cognitive status Physical Exam Constitutional: WD/WN, vitals as above Eyes: EOM intact bilaterally; no conjunctival abnormality ENMT: external ear and nose normal, oropharynx normal Neck: trachea midline, no thyromegaly normal visual inspection Respiratory: normal respiratory effort, lungs clear to auscultation no respiratory distress Cardiovascular: RRR, no murmur, no edema Gastrointestinal (Abdomen): Inspection/Auscultation: abdomen normal to inspection; abdomen not distended Musculoskeletal: no cyanosis or clubbing, extremities motor strength 5/5 Skin: no rashes, warm and dry Neurologic: moves all extremities and awake Psychiatric: Orientation: alert; + uncooperative Results & Data Results & [facility] ([facility]) Vital Signs (Past 12 Hours) Vital Signs Temp Pulse Resp BP Pulse Ox 07/21/21 15:22 36.9 C 116 H 24 120/70 93 07/21/21 07:00 36.6 C 83 16 113/74 94 PG Care Time/CCT Total # of Minutes Spent Total Time Spent with Patient: Total time spent is greater than 50% in coor dination of care (as documented) at patient's floor/unit and/or counseling patient: Coding Level of Care Code 93548 Subseq Hosp Care Lvl 3 Diagnoses Fall W19.XXXA Encounter type: initial encounter Behavior concern in adult F69 Small bowel obstruction K56.609 Lumbar radiculopathy M54.16 Hypertension I10 Hypertension type: essential hypertension Atrial fibrillation I48.2 Atrial fibrillation type: chronic Seizure disorder G40.909 Chronic obstructive pulmonary disease J44.9 COPD type: unspecified COPD Depression with anxiety F41.8 DVT prophylaxis Z29.9 (1) Fall Encounter type: initial encounter Qualified Code(s): W19.XXXA - Unspecified fall, initial encounter (2) Hypertension Hypertension type: essential hypertension Qualified Code(s): I10 - Essential (primary) hypertension (3) Atrial fibrillation Atrial fibrillation type: chronic Qualified Code(s): I48.2 - Chronic atrial fibrillation (4) Chronic obstructive pulmonary disease COPD type: unspecified COPD Qualified Code(s): J44.9 - Chronic obstructive pulmonary disease, unspecified
--- NOTE | 2021-07-21 17:38 | Psychiatric Consultation ---
Date of Consultation July 21, 2021 Impression / Recommendations Impression 71 yo female with a history of seizure disorder with cognitive and behavioral changes, progressive irritability during hospital stay. Differential includes dementia with behavioral disturbance, delirium, or medication induced mood issue. (1) Cognitive and behavioral changes: d/c Remeron in case it is disinhibiting patient with underlying cognitive decline, if anything presents as irritable bordering on manic rather than depressed. cannot exclude side effect of Keppra. discussed that if behavior escalates to aggression, treat behavioral disturbance acutely with low dose Seroquel or IM Haldol (if refusing PO). patient is unable to engage in any meaningful discussion about risks/benefits of treatment or placement at this time, she is confused as to her location and rationale of even current meds so in this moment she lacks capacity to refuse appropriate level of nursing care or rehab. Risk Factors Assessment Do You Have Access To A Gun?: No Psych History Identifying Data 71 yo female with no formal psych hx readmitted for fall 1 day after discharge from [facility]. Chief Complaint "I'm not talking to you, don't they teach you [place]inean in medical school? This is all bullsh*t". History of Present Illness Patient was loud and resistant to questioning. Disrespectful toward nursing staff and refusing neurontin, tugging at cortez with restless legs. 1-on-1 aide also stressed by boisterous and disrespectful nature. Case discussed with Dr. Colindres given limited cooperation and she did seem to become more distrustful and irritable toward the end of her previous stay. Staff noticed she became agitated today about 30 min after her dose of Keppra. She did complete a PHQ-9 with staff last pm and scored 2 for fatigue and trouble concentrating. During her verbal rant, she stated that she felt she was being treated like an animal, became tearful that her boyfriend can't visit, and then said "if you aren't going to help me, then just knock me out". Currently unclear how long she is prescribed Remeron. She states she's not depressed, then talks about being in her apartment, and then says "wouldn't you be depressed to be here?". She essentially ended refused to cooperate with any cognitive testing. Per Dr. Colindres, discussed case with neice last stay and patient always refuses services other than return home. Had been doing "OK" until recently but there has been some memory difficulties, like talking about the same thing over and over. Past Psychiatric History Previous Psych History: denied, has a complex case manager with home helpers. Previous Psych Admissions: no Do You Have Access To A Gun?: No Past Medication Trials: denied Allergies Allergy/AdvReac Type Severity Reaction Status Date / Time latex Allergy Intermediate Rash, itchy Verified 07/20/21 15:31 adhesive Allergy Mild ITCHY Verified 07/20/21 15:31 bacitracin Allergy Unknown Unknown Verified 07/20/21 15:31 [From Neosporin ([id number])] neomycin Allergy Unknown Unknown Verified 07/20/21 15:31 [From Neosporin ([id number])] polymyxin B Allergy Unknown Unknown Verified 07/20/21 15:31 [From Neosporin ([id number])] metoclopramide [From Reglan] AdvReac Intermediate dyskinetic Verified 07/20/21 15:31 reaction Home Medications Medication Instructions Recorded Confirmed Type magnesium oxide 400 mg (241.3 mg 200 mg PO BID 90 Days #90 tab 07/28/20 07/20/21 Rx magnesium) tablet gabapentin 300 mg capsule 300 mg PO TID 08/21/20 07/20/21 History furosemide 20 mg tablet 40 mg PO QAM #60 tab 09/15/20 07/20/21 Rx albuterol sulfate 90 mcg/actuation 2 puff INHALATION QID PRN #8.5 g 09/16/20 07/20/21 Rx aerosol inhaler lamotrigine 100 mg disintegrating 100 mg PO BID #60 tab 09/27/20 07/20/21 Rx tablet levetiracetam 100 mg/mL oral 500 mg PO BID #300 ml 09/27/20 07/20/21 Rx solution apixaban 5 mg tablet (Eliquis) 5 mg PO QAM #90 tab 12/22/20 07/20/21 Rx potassium chloride 10 mEq 20 meq PO QAM #180 tab 04/05/21 07/20/21 Rx tablet,extended release meclizine 12.5 mg tablet 12.5 - 25 mg PO Q6H PRN #30 tab 05/26/21 07/20/21 Rx mirtazapine 15 mg tablet 15 mg PO HS #30 tab 06/21/21 07/20/21 Rx lamotrigine 200 mg disintegrating 200 mg PO BID #60 tab 07/04/21 07/20/21 Rx tablet famotidine 20 mg tablet 20 mg PO HS 07/09/21 07/20/21 History omeprazole 20 mg capsule,delayed 20 mg PO DAILY 07/09/21 07/20/21 History release diclofenac sodium 1 % topical gel 1 ea TOPICAL QID MDD 16 grams 07/10/21 07/20/21 History Family History unable to provide due to MS Substance Abuse History none Personal History Living Arrangements: Home (alone but boyfriend visits) Highest Grade Completed: High School Graduate and Did Not Graduate High School Beliefs That Will Affect Care: None Psychological Trauma History Comment: apparently reported to liaison that witnessed her mother's murder as a child. Patient History Medical History Asthma Atrial fibrillation eliquis daily---follows with Dr. 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 Holm, reason for lamictal/keppra Temporomandibular joint disorder Doesn't get locked up Vertigo Surgical History History of appendectomy History of arthroplasty of left knee History of cataract surgery bilateral History of cervical discectomy 2008 Dr. Moreno C5-C6 C6-C7 History of colonoscopy History of esophagogastroduodenoscopy (EGD) History of tooth extraction History of total hysterectomy with bilateral salpingo-oophorectomy (BSO) History of total left knee replacement (TKR) History of total right knee replacement (TKR) History of vascular access device hx of Right IJ triple lumen central venous cath 2010--no longer has S/P cholecystectomy Family History Other Family history non-contributory No family history of adverse response to anesthesia Social History Smoking Status: Never smoker Second Hand Exposure: No; Hx Alcohol Use: No Hx Substance Use: No Preferred Language: Guinean Communication Ability: Effective Visual Impairment: No Limitations 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 Required: No Beliefs That Will Affect Care: None marital status: Single Current Living Situation: Alone current occupational status: retired Other Information That Helps Us Care for You: No Feels Safe at Home: Yes and Hesitant to Answer Safety Concerns: Feels Safe At This Time Assistive Devices: None and Walker Physical Exam Psychiatric: Orientation: alert; + not oriented to place and + uncooperative Apperance: + disheveled Eye Contact: + fair eye contact Motor Behavior: + tremor Speech: + pressured speech and + loud speech Affect: + irritable affect Mood: + irritable mood Thought Process: + concrete thought process Thought Content: no delusions Suicidal Thoughts: denies suicidal thoughts (but makes statements in anger that if we don't do what she wants she wants ) put down Homicidal Thoughts: denies homicidal thoughts Hallucinations: no auditory hallucinations and no visual hallucinations Cognition: language grossly intact; + recent memory not intact, + remote memory not intact and + attention not intact Insight: + poor insight Judgement: + poor judgement Vital Signs (Past 24 Hours): Last Vital Signs Temp 36.9 C 07/21/21 15:22 Pulse 116 H 07/21/21 15:22 Resp 24 07/21/21 15:22 BP 120/70 07/21/21 15:22 Pulse Ox 93 07/21/21 15:22 Review of Systems Unobtainable due to cognitive status Results & Data (PSY) Medications Administered Acetaminophen (Acetaminophen 325 Mg Tab) 650 mg PO Q4H PRN PRN Reason: pain/fever Stop: 08/19/21 18:21 Last Admin: 07/21/21 15:00 Dose: 650 mg Documented by: [id number] Admin: 07/20/21 19:20 Dose: 650 mg Documented by: [id number] Apixaban (Apixaban 5 Mg Tablet) 5 mg PO QAM DYANA Stop: 08/20/21 08:59 Last Admin: 07/21/21 08:20 Dose: 5 mg Documented by: [id number] Famotidine (Famotidine 20 Mg Tab) 20 mg PO HS DYANA Stop: 08/19/21 20:59 Last Admin: 07/20/21 20:14 Dose: 20 mg Documented by: [id number] Furosemide (Furosemide 40 Mg Tab) 40 mg PO QAM DYANA Stop: 08/20/21 08:59 Last Admin: 07/21/21 08:19 Dose: 40 mg Documented by: [id number] Gabapentin (Gabapentin 300 Mg Cap) 300 mg PO TID DYANA Stop: 08/19/21 20:59 Last Admin: 07/21/21 13:51 Dose: Not Given Documented by: [id number] Admin: 07/21/21 08:19 Dose: 300 mg Documented by: [id number] Admin: 07/20/21 20:16 Dose: 300 mg Documented by: [id number] Lamotrigine (Lamotrigine 100 Mg Tab) 300 mg PO BID DYANA Stop: 08/19/21 20:59 Last Admin: 07/21/21 08:19 Dose: 300 mg Documented by: [id number] Admin: 07/20/21 20:16 Dose: 300 mg Documented by: [id number] Magnesium Oxide (Magnesium Oxide 400 Mg Tab) 200 mg PO BID DYANA Stop: 08/19/21 20:59 Last Admin: 07/21/21 08:19 Dose: 200 mg Documented by: [id number] Admin: 07/20/21 20:15 Dose: 200 mg Documented by: [id number] Pantoprazole Sodium (Pantoprazole 40 Mg Tab) 40 mg PO DAILY DYANA Stop: 08/20/21 08:59 Last Admin: 07/21/21 08:19 Dose: 40 mg Documented by: [id number] Potassium Chloride (Potassium Chloride Crtab 20 Meq Tabcr) 20 meq PO QAM DYANA Stop: 08/20/21 08:59 Last Admin: 07/21/21 08:19 Dose: 20 meq Documented by: [id number] Coding Level of Care Code 02704 [facility] Intl Hosp Care Lvl 2 Diagnoses Cognitive and behavioral changes R41.89; R46.89
[2021-07-21] MEDS: FAMOTIDINE 20 MG TAB PO SCH (20:03)
[2021-07-21] MEDS: OLANZapine ZYDIS 5 MG ORALLY DIS. TAB PO PRN (23:26)
[2021-07-22 07:28] LABS: Hematocrit (blood only) 36.6 % (37-47); Hemoglobin 11.8 g/dL (12.0-16.0); Mean Corpuscular Hemoglobin 26.3 pg (25-34); Mean Corpuscular Hgb Conc 32.2 g/dL (32-36); Mean Corpuscular Volume 81.7 fL (80-100); Mean Platelet Volume 10.5 fL (7.4-10.4); Platelet Count 254 K/uL (130-400); RDW Coefficient of Variation 17.1 % (11.5-14.5); RDW Standard Deviation 50.8 fL (36.4-46.3); Red Blood Count 4.48 M/uL (4.2-5.4); White Blood Count 9.05 K/uL (4.8-10.8)
[2021-07-22] MEDS: ACETAMINOPHEN 325 MG TAB PO PRN ×2 (07:29→14:21)
[2021-07-22 07:57] LABS: BUN Creatinine Ratio 8.4 (10-20); Calcium 8.6 mg/dl (8.5-10.1); Creatinine Clr Calc Pharmacy 58.4 ml/min; Est GFR (African American) 52.3 ml/min; Est GFR (Non-African American) 45.1 ml/min; Magnesium 2.2 mg/dl (1.8-2.4); Potassium 3.1 mmol/L (3.5-5.1)
[2021-07-22] MEDS: lamoTRIgine 100 MG TAB PO SCH ×2 (09:53→20:13)
[2021-07-22] MEDS: MAGNESIUM OXIDE 400 MG TAB PO SCH ×2 (09:53→20:14)
[2021-07-22] MEDS: FUROSEMIDE 40 MG TAB PO SCH (09:53)
[2021-07-22] MEDS: PANTOprazole 40 MG TAB PO SCH (09:53)
[2021-07-22] MEDS: APIXABAN 5 MG TABLET PO SCH (09:54)
[2021-07-22] MEDS: POTASSIUM CHLORIDE CRTAB 20 MEQ TABCR PO SCH (09:54)
[2021-07-22] MEDS: GABAPENTIN 300 MG CAP PO SCH ×3 (09:54→20:14)
--- NOTE | 2021-07-22 12:24 | Hospitalist Progress Note ---
Date of Service July 22, 2021 Assessment & Plan (1) Fall: Plan: Patient is status post fall at home. Work-up in ER had a hip x-ray that was concerning for right femoral neck fracture, not seen on CT. - PT/OT evaluation - Her pain appears to be nearly at baseline at present. Worked with PT. Plan for rehab if she will go. (2) Behavior concern in adult: Plan: Patient seems to be somewhat anxious and suspicious of being in the hospital. This appears to wax/wane and may be medication-related. - Seen by psychiatry who will recommend adjustments to her medication. -> Improved today while off Keppra and Remeron. (3) Small bowel obstruction: Plan: Reason for previous admission; resolved. - Monitor (4) Lumbar radiculopathy: Plan: Imaging did show severe multilevel degenerative disc disease. - PT/OT as noted above (5) Hypertension: Plan: BP was 120/70 today. - Continue Lasix (6) Atrial fibrillation: Plan: Patient is generally rate-controlled when calm. During anxious periods, she does go higher. - Continue Eliquis 5 mg twice daily - Not on beta-erlinda or calcium channel erlinda (7) Seizure disorder: Plan: No indication of seizure in the hospital. - Continue Lamictal and gabapentin - Holding Keppra as this appears to precipitate her aggression and anxiety - Will discuss with neurology (8) Chronic obstructive pulmonary disease: Plan: No acute issues. - DuoNebs PRN (9) Depression with anxiety: Plan: With quite labile emotions here-mildly confused at times, now improved. Is often tearful and frustrated with her multiple medical issues. - Hold mirtazapine per psychiatry -> Presently psychiatry do *NOT* feel she has capacity, but this is clearly waxing and waning. (10) DVT prophylaxis: Plan: On apixaban for afib Admission and Anticipated Discharge Date Admission Date: July 21, 2021 Subjective Much more pleasant today. She continues to perseverate on "going forward" and seems somewhat hesitant about going to [facility]. She asks why we can't just send her home with home health. When asked about her fall at home, she demurs and says that was in the past and probably due to medications we gave her in the hospital. Physical Exam Constitutional: WD/WN, vitals as above Eyes: EOM intact bilaterally; no conjunctival abnormality ENMT: external ear and nose normal, oropharynx normal Neck: trachea midline, no thyromegaly normal visual inspection Respiratory: normal respiratory effort, lungs clear to auscultation no respiratory distress Cardiovascular: RRR, no murmur, no edema Gastrointestinal (Abdomen): Inspection/Auscultation: abdomen normal to inspection; abdomen not distended Musculoskeletal: no cyanosis or clubbing, extremities motor strength 5/5 Skin: no rashes, warm and dry Neurologic: moves all extremities and awake Psychiatric: Orientation: alert; + uncooperative Results & Data Results & Data ([facility]) Vital Signs (Past 12 Hours) Vital Signs Temp Pulse Resp BP Pulse Ox 07/22/21 07:01 36.8 C 83 20 113/74 93 PG Care Time/CCT Total # of Minutes Spent Total Time Spent with Patient: Total time spent is greater than 50% in plan coordinator rdination of care (as documented) at patient's floor/unit and/or counseling patient: Coding Level of Care Code 05254 Subseq Hosp Care Lvl 2 Diagnoses Fall W19.XXXA Encounter type: initial encounter Behavior concern in adult F69 Small bowel obstruction K56.609 Lumbar radiculopathy M54.16 Hypertension I10 Hypertension type: essential hypertension Atrial fibrillation I48.2 Atrial fibrillation type: chronic Seizure disorder G40.909 Chronic obstructive pulmonary disease J44.9 COPD type: unspecified COPD Depression with anxiety F41.8 DVT prophylaxis Z29.9 (1) Fall Encounter type: initial encounter Qualified Code(s): W19.XXXA - Unspecified fall, initial encounter (2) Hypertension Hypertension type: essential hypertension Qualified Code(s): I10 - Essential (primary) hypertension (3) Atrial fibrillation Atrial fibrillation type: chronic Qualified Code(s): I48.2 - Chronic atrial fibrillation (4) Chronic obstructive pulmonary disease COPD type: unspecified COPD Qualified Code(s): J44.9 - Chronic obstructive pulmonary disease, unspecified
--- NOTE | 2021-07-22 15:58 | Communication Note ---
Date of Service: July 22, [address] Sinclair to assume primary clinical responsbility for consult service at 5 pm. Patient continues with fluctuating irritability, often after am meds. did receive 1 dose of Zyprexa IM 5 mg last pm. Becomes irritated with cortez care. Seems to confuse hospital with her apartment. Liaison will continue to follow.
[2021-07-22] MEDS ORDERED: POTASSIUM CHLORIDE CRTAB 20 MEQ TABCR PO STA (17:25)
[2021-07-22] MEDS ORDERED: LIDOCAINE 5% 1 PATCH TD SCH (17:30)
[2021-07-22] MEDS: LIDOCAINE 5% 1 PATCH TD SCH (18:19)
[2021-07-22] MEDS: traMADol HCL 50 MG TABLET PO PRN (19:26)
[2021-07-22] MEDS: DICLOFENAC SOD 1% GEL 100 GM TUBE EXT SCH (20:13)
[2021-07-22] MEDS: FAMOTIDINE 20 MG TAB PO SCH (20:14)
[2021-07-22] MEDS: OLANZapine ZYDIS 5 MG ORALLY DIS. TAB PO PRN (20:14)
[2021-07-23] MEDS: traMADol HCL 50 MG TABLET PO PRN ×2 (03:59→10:14)
[2021-07-23] MEDS: MAGNESIUM OXIDE 400 MG TAB PO SCH ×2 (10:08→21:00)
[2021-07-23] MEDS: PANTOprazole 40 MG TAB PO SCH (10:09)
[2021-07-23] MEDS: GABAPENTIN 300 MG CAP PO SCH ×3 (10:09→21:01)
[2021-07-23] MEDS: POTASSIUM CHLORIDE CRTAB 20 MEQ TABCR PO SCH (10:10)
[2021-07-23] MEDS: APIXABAN 5 MG TABLET PO SCH (10:11)
[2021-07-23] MEDS: DICLOFENAC SOD 1% GEL 100 GM TUBE EXT SCH ×3 (10:11→20:59)
[2021-07-23] MEDS: FUROSEMIDE 40 MG TAB PO SCH (10:11)
[2021-07-23] MEDS: ACETAMINOPHEN 325 MG TAB PO PRN ×2 (10:14→21:02)
[2021-07-23 11:03] LABS: Hematocrit (blood only) 40.1 % (37-47); Mean Corpuscular Hemoglobin 26.4 pg (25-34); Mean Corpuscular Hgb Conc 32.4 g/dL (32-36); Mean Corpuscular Volume 81.5 fL (80-100); Mean Platelet Volume 11.1 fL (7.4-10.4); Platelet Count 307 K/uL (130-400); RDW Coefficient of Variation 16.9 % (11.5-14.5); RDW Standard Deviation 50.8 fL (36.4-46.3); Red Blood Count 4.92 M/uL (4.2-5.4); White Blood Count 9.81 K/uL (4.8-10.8)
[2021-07-23] MEDS: lamoTRIgine 100 MG TAB PO SCH ×2 (11:14→21:01)
[2021-07-23 11:20] LABS: BUN Creatinine Ratio 7.5 (10-20); Calcium 8.9 mg/dl (8.5-10.1); Creatinine Clr Calc Pharmacy 64.3 ml/min; Est GFR (African American) 58.7 ml/min; Est GFR (Non-African American) 50.7 ml/min; Potassium 3.8 mmol/L (3.5-5.1)
[2021-07-23] MEDS: OLANZapine ZYDIS 5 MG ORALLY DIS. TAB PO PRN ×2 (12:44→15:10)
--- NOTE | 2021-07-23 14:26 | Hospitalist Progress Note ---
Date of Service July 23, 2021 Assessment & Plan (1) Fall: Plan: Patient is status post fall at home. Work-up in ER had a hip x-ray that was concerning for right femoral neck fracture, not seen on CT. - PT/OT evaluation - Her pain appears to be nearly at baseline at present. Worked with PT. Plan for rehab if she will go. Today, she is now moving away from being willing to go, but may be open to home PT/OT. (2) Behavior concern in adult: Plan: Patient seems to be somewhat anxious and suspicious of being in the hospital. This appears to wax/wane and may be medication-related. Possible toxic/metabolic encephalopathy. - Seen by psychiatry who will recommend adjustments to her medication. -> Improved today while off Keppra and Remeron. -> Today, she was quite pleasant with me. Less confrontational than almost any other visit. However, she still repeats herself and has a hard time really discussing any consequences. When asked what will happen if she falls at home, she answers "I'll get up." and when followed with what if she cannot, she answers, "I will." This was discussed with psychiatry who will once again see her and help determine capacity to refuse SNF. (3) Small bowel obstruction: Plan: Reason for previous admission; resolved. - Monitor (4) Lumbar radiculopathy: Plan: Imaging did show severe multilevel degenerative disc disease. - PT/OT as noted above (5) Hypertension: Plan: BP was 140/70 today. - Continue Lasix (6) Atrial fibrillation: Plan: Patient is generally rate-controlled when calm. During anxious periods, she does go higher. - Continue Eliquis 5 mg twice daily - Not on beta-erlinda or calcium channel erlinda (7) Seizure disorder: Plan: No indication of seizure in the hospital. She reports she has not had a seizure in "10 - 12 years," but I doubt her reliability. Likewise, her niece Barbie thought this was also unlikely, though she didn't have an idea of when she might have had her last one. - Continue Lamictal and gabapentin - Holding Keppra as this appears to precipitate her aggression and anxiety - Discussed with neurology -> Trough level of Lamictal done on 07/23. Continue current dosing for now. (8) Chronic obstructive pulmonary disease: Plan: No acute issues. - DuoNebs PRN (9) Depression with anxiety: Plan: With quite labile emotions here-mildly confused at times, now improved. Is often tearful and frustrated with her multiple medical issues. - Hold mirtazapine per psychiatry -> Presently psychiatry do *NOT* feel she has capacity, but this is clearly waxing and waning. Will see as above. (10) DVT prophylaxis: Plan: On apixaban for afib Admission and Anticipated Discharge Date Admission Date: July 21, 2021 Physical Exam Constitutional: WD/WN, vitals as above Eyes: EOM intact bilaterally; no conjunctival abnormality ENMT: external ear and nose normal, oropharynx normal Neck: trachea midline, no thyromegaly normal visual inspection Respiratory: normal respiratory effort, lungs clear to auscultation no respiratory distress Cardiovascular: RRR, no murmur, no edema Gastrointestinal (Abdomen): Inspection/Auscultation: abdomen normal to inspection; abdomen not distended Musculoskeletal: no cyanosis or clubbing, extremities motor strength 5/5 Skin: no rashes, warm and dry Neurologic: moves all extremities and awake Psychiatric: Orientation: alert; + uncooperative Results & Data Results & Data ([facility]) Vital Signs (Past 12 Hours) Vital Signs Temp Pulse Resp BP Pulse Ox 07/23/21 07:19 36.7 C 73 16 142/76 H 92 PG Care Time/CCT Total # of Minutes Spent Total Time Spent with Patient: Total time spent is greater than 50% in coordination of care (as documented) at patient's floor/unit and/or counseling patient: Coding Level of Care Code 97882 Subseq Hosp Care Lvl 2 Diagnoses Fall W19.XXXA Encounter type: initial encounter Behavior concern in adult F69 Small bowel obstruction K56.609 Lumbar radiculopathy M54.16 Hypertension I10 Hypertension type: essential hypertension Atrial fibrillation I48.2 Atrial fibrillation type: chronic Seizure disorder G40.909 Chronic obstructive pulmonary disease J44.9 COPD type: unspecified COPD Depression with anxiety F41.8 DVT prophylaxis Z29.9 (1) Fall Encounter type: initial encounter Qualified Code(s): W19.XXXA - Unspecified fall, initial encounter (2) Hypertension Hypertension type: essential hypertension Qualified Code(s): I10 - Essential (primary) hypertension (3) Atrial fibrillation Atrial fibrillation type: chronic Qualified Code(s): I48.2 - Chronic atrial fibrillation (4) Chronic obstructive pulmonary disease COPD type: unspecified COPD Qualified Code(s): J44.9 - Chronic obstructive pulmonary disease, unspecified
--- NOTE | 2021-07-23 16:43 | Communication Note ---
Date of Service: July 23, 2021 Psychiatry service re-evaluated patient as she was less irritable today. Patient initially refusing SNF treatment, although unable to state the risks and benefits of going to rehab. She continues to be initially irritable on approach, although she is not violent or aggressive, but will soften after brief conversation. She was unable to tell me today's date or her reasons for presenting to the hospital. She is able to make her wishes and needs known, and continues to desire to return to her apartment dwelling. After informing patient that she was here due to falls she had suffered in the home, patient was in agreement and went on to state the numerous reason she has for her weakness including vertigo as well as arthritis. Project Financial Analyst agreed with patient who then went on to state that she wish she is to return home as she has a boyfriend who plans to take her on a picnic. After long discussion, however patient was agreeable to attend SNF rehab for purposes of regaining physical strength prior to returning to her home so that she will be better able to participate in her activities of daily living. The patient is 71 years old, with declining mental and physical abilities and therefore the formal recommendation of psychiatry services is to involve the offices of aging as well as the patient's family in order to come up with a safe discharge plan for this patient. In light of her agreeing to go to SNF rehab, no formal capacity assessment was done, although it is anticipated that patient will need additional services in the coming years due to her declining functioning status. Recommendations: Patient agreeable to SNF rehab at this time Discontinue mirtazapine.
[2021-07-23] MEDS: FAMOTIDINE 20 MG TAB PO SCH (21:01)
[2021-07-23] MEDS: LIDOCAINE 5% 1 PATCH TD SCH (21:03)
[2021-07-24] MEDS: MAGNESIUM OXIDE 400 MG TAB PO SCH ×2 (10:11→20:29)
[2021-07-24] MEDS: PANTOprazole 40 MG TAB PO SCH (10:12)
[2021-07-24] MEDS: POTASSIUM CHLORIDE CRTAB 20 MEQ TABCR PO SCH (10:12)
[2021-07-24] MEDS: FUROSEMIDE 40 MG TAB PO SCH (10:12)
[2021-07-24] MEDS: APIXABAN 5 MG TABLET PO SCH (10:13)
[2021-07-24] MEDS: lamoTRIgine 100 MG TAB PO SCH ×2 (10:13→20:28)
[2021-07-24] MEDS: GABAPENTIN 300 MG CAP PO SCH ×3 (10:13→20:28)
[2021-07-24] MEDS: DICLOFENAC SOD 1% GEL 100 GM TUBE EXT SCH ×3 (10:13→20:27)
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
[2021-07-24] MEDS: DOCUSATE SODIUM/SENNA 50/8.6MG TAB PO SCH (14:14)
[2021-07-24] MEDS ORDERED: MECLIZINE 12.5 MG TAB PO PRN (14:21)
[2021-07-24] MEDS: ACETAMINOPHEN 325 MG TAB PO PRN ×2 (15:06→20:32)
[2021-07-24] MEDS: traMADol HCL 50 MG TABLET PO PRN (17:35)
[2021-07-24] MEDS: FAMOTIDINE 20 MG TAB PO SCH (20:29)
[2021-07-24] MEDS: LIDOCAINE 5% 1 PATCH TD SCH (20:34)
[2021-07-24] MEDS ORDERED: KETOROLAC TROMETHAMINE 15 MG/ML VIAL IV ONE (21:36)
[2021-07-24] MEDS ORDERED: IBUPROFEN 600 MG TAB PO ONE (22:04)
[2021-07-25] MEDS: GABAPENTIN 300 MG CAP PO SCH ×3 (09:01→21:15)
[2021-07-25] MEDS: DOCUSATE SODIUM/SENNA 50/8.6MG TAB PO SCH (09:01)
[2021-07-25] MEDS: FUROSEMIDE 40 MG TAB PO SCH (09:01)
[2021-07-25] MEDS: APIXABAN 5 MG TABLET PO SCH (09:01)
[2021-07-25] MEDS: POTASSIUM CHLORIDE CRTAB 20 MEQ TABCR PO SCH (09:01)
[2021-07-25] MEDS: PANTOprazole 40 MG TAB PO SCH (09:02)
[2021-07-25] MEDS: MAGNESIUM OXIDE 400 MG TAB PO SCH ×2 (09:02→21:16)
[2021-07-25] MEDS: lamoTRIgine 100 MG TAB PO SCH ×2 (09:02→21:15)
[2021-07-25] MEDS: DICLOFENAC SOD 1% GEL 100 GM TUBE EXT SCH ×3 (09:03→21:15)
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
[2021-07-25] MEDS: LIDOCAINE 5% 1 PATCH TD SCH (21:12)
[2021-07-25] MEDS: FAMOTIDINE 20 MG TAB PO SCH (21:15)
[2021-07-25] MEDS: ACETAMINOPHEN 325 MG TAB PO PRN (21:16)
[2021-07-26] MEDS: traMADol HCL 50 MG TABLET PO PRN ×4 (01:33→20:13)
[2021-07-26] MEDS: PANTOprazole 40 MG TAB PO SCH (09:33)
[2021-07-26] MEDS: DOCUSATE SODIUM/SENNA 50/8.6MG TAB PO SCH (09:33)
[2021-07-26] MEDS: MAGNESIUM OXIDE 400 MG TAB PO SCH ×2 (09:33→20:10)
[2021-07-26] MEDS: lamoTRIgine 100 MG TAB PO SCH ×2 (09:34→20:10)
[2021-07-26] MEDS: GABAPENTIN 300 MG CAP PO SCH ×3 (09:34→20:11)
[2021-07-26] MEDS: FUROSEMIDE 40 MG TAB PO SCH (09:35)
[2021-07-26] MEDS: APIXABAN 5 MG TABLET PO SCH (09:35)
[2021-07-26] MEDS: POTASSIUM CHLORIDE CRTAB 20 MEQ TABCR PO SCH (09:35)
[2021-07-26] MEDS: DICLOFENAC SOD 1% GEL 100 GM TUBE EXT SCH ×3 (09:36→20:07)
[2021-07-26] MEDS: ACETAMINOPHEN 325 MG TAB PO PRN ×2 (10:57→17:28)
[2021-07-26] MEDS: MAGNESIUM HYDROXIDE SUSP 30 ML UDC PO PRN (15:00)
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
[2021-07-26] MEDS: LIDOCAINE 5% 1 PATCH TD SCH (20:06)
[2021-07-26] MEDS: FAMOTIDINE 20 MG TAB PO SCH (20:10)
[2021-07-26] MEDS: OLANZapine ZYDIS 5 MG ORALLY DIS. TAB PO PRN (22:15)
[2021-07-26] MEDS: OLANZapine 10 MG/2.1 ML SDV IM PRN (23:39)
[2021-07-27] MEDS: ACETAMINOPHEN 325 MG TAB PO PRN (02:06)
[2021-07-27] MEDS: APIXABAN 5 MG TABLET PO SCH (08:24)
[2021-07-27] MEDS: FUROSEMIDE 40 MG TAB PO SCH (08:24)
[2021-07-27] MEDS: PANTOprazole 40 MG TAB PO SCH (08:24)
[2021-07-27] MEDS: DOCUSATE SODIUM/SENNA 50/8.6MG TAB PO SCH (08:24)
[2021-07-27] MEDS: GABAPENTIN 300 MG CAP PO SCH ×3 (08:25→22:40)
[2021-07-27] MEDS: MAGNESIUM OXIDE 400 MG TAB PO SCH ×2 (08:25→22:40)
[2021-07-27] MEDS: lamoTRIgine 100 MG TAB PO SCH ×2 (08:25→22:40)
[2021-07-27] MEDS: DICLOFENAC SOD 1% GEL 100 GM TUBE EXT SCH ×3 (08:26→20:20)
[2021-07-27] MEDS: POTASSIUM CHLORIDE CRTAB 20 MEQ TABCR PO SCH (08:28)
[2021-07-27] MEDS: MAGNESIUM HYDROXIDE SUSP 30 ML UDC PO PRN (08:45)
[2021-07-27] MEDS ORDERED: QUEtiapine FUMARATE 25 MG TABLET PO SCH ×3 (09:00→14:00)
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
[2021-07-27] MEDS: traMADol HCL 50 MG TABLET PO PRN ×2 (16:14→23:07)
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
[2021-07-27] MEDS: LIDOCAINE 5% 1 PATCH TD SCH (20:21)
[2021-07-27] MEDS: OLANZapine 10 MG/2.1 ML SDV IM PRN (22:21)
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
[2021-07-27] MEDS: FAMOTIDINE 20 MG TAB PO SCH (22:39)
[2021-07-27] MEDS: QUEtiapine FUMARATE 25 MG TABLET PO SCH (22:40)
[2021-07-28] MEDS: DICLOFENAC SOD 1% GEL 100 GM TUBE EXT SCH ×3 (08:25→20:18)
[2021-07-28] MEDS: POTASSIUM CHLORIDE CRTAB 20 MEQ TABCR PO SCH (08:32)
[2021-07-28] MEDS: MAGNESIUM OXIDE 400 MG TAB PO SCH ×2 (08:32→20:17)
[2021-07-28] MEDS: PANTOprazole 40 MG TAB PO SCH (08:32)
[2021-07-28] MEDS: FUROSEMIDE 40 MG TAB PO SCH (08:32)
[2021-07-28] MEDS: APIXABAN 5 MG TABLET PO SCH (08:33)
[2021-07-28] MEDS: DOCUSATE SODIUM/SENNA 50/8.6MG TAB PO SCH (08:33)
[2021-07-28] MEDS: GABAPENTIN 300 MG CAP PO SCH ×2 (08:33→20:17)
[2021-07-28] MEDS: lamoTRIgine 100 MG TAB PO SCH ×2 (08:33→20:17)
--- NOTE | 2021-07-28 09:07 | XRay Report ---
XR chest 1V portable CLINICAL HISTORY: chest pain COMPARISON STUDY: July 20, 2021 FINDINGS: No pneumothorax. No pleural effusion. Small atelectasis is seen within left retrocardiac region and at the left base, not significantly seth nged since recent prior. Cardiomediastinal silhouette is mildly enlarged, stable since prior. No significant pulmonary vascular congestion.. Osseous structures: Degenerative changes of the spine. IMPRESSION: 1. Stable mild cardiomegaly of without significant pulmonary vascular congestion. 2. Atelectasis at the left base and within left retrocardiac region, stable since prior. ACT 112: Negative or not required by law. The above report was generated using voice recognition software. It may contain grammatical, syntax o r spelling errors. Electronically signed by: Charlotte Stockton DO 07/28/2021 9:06 AM
[2021-07-28] MEDS: traMADol HCL 50 MG TABLET PO PRN (10:59)
[2021-07-28] MEDS: QUEtiapine FUMARATE 25 MG TABLET PO SCH ×2 (12:07→20:17)
[2021-07-28] MEDS: LIDOCAINE 5% 1 PATCH TD SCH ×2 (12:07→20:17)
--- NOTE | 2021-07-28 18:31 | Electrocardiogram Report ---
Test Reason : Blood Pressure : / mmHG Vent. Rate : 071 BPM Atrial Rate : 340 BPM P-R Int : 000 ms QRS Dur : 086 ms QT Int : 402 ms P-R-T Axes : 000 000 042 degrees QTc Int : 436 ms Atrial fibrillation Abnormal ECG When compared with ECG of 20-JUL-2021 10:28, No significant change was found Confirmed by Dawson Davidson ([id number]) on 07/28/2021 6:30:43 PM Referred By: REFERRED SELF Confirmed By:José Miguel Davidson
[2021-07-28] MEDS: FAMOTIDINE 20 MG TAB PO SCH (20:17)
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
[2021-07-29] MEDS: ACETAMINOPHEN 325 MG TAB PO PRN ×3 (01:41→19:51)
[2021-07-29] MEDS: APIXABAN 5 MG TABLET PO SCH (08:24)
[2021-07-29] MEDS: DOCUSATE SODIUM/SENNA 50/8.6MG TAB PO SCH (08:24)
[2021-07-29] MEDS: GABAPENTIN 300 MG CAP PO SCH ×2 (08:24→19:48)
[2021-07-29] MEDS: FUROSEMIDE 40 MG TAB PO SCH (08:24)
[2021-07-29] MEDS: MAGNESIUM OXIDE 400 MG TAB PO SCH ×2 (08:24→19:48)
[2021-07-29] MEDS: PANTOprazole 40 MG TAB PO SCH (08:25)
[2021-07-29] MEDS: QUEtiapine FUMARATE 25 MG TABLET PO SCH ×2 (08:25→19:48)
[2021-07-29] MEDS: LIDOCAINE 5% 1 PATCH TD SCH ×2 (08:25→19:49)
[2021-07-29] MEDS: POTASSIUM CHLORIDE CRTAB 20 MEQ TABCR PO SCH (08:25)
[2021-07-29] MEDS: lamoTRIgine 100 MG TAB PO SCH ×2 (08:25→19:48)
[2021-07-29] MEDS: DICLOFENAC SOD 1% GEL 100 GM TUBE EXT SCH ×3 (08:25→19:49)
[2021-07-29] MEDS: traMADol HCL 50 MG TABLET PO PRN (08:27)
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
[2021-07-29] MEDS: OLANZapine ZYDIS 5 MG ORALLY DIS. TAB PO PRN (18:28)
[2021-07-29] MEDS: FAMOTIDINE 20 MG TAB PO SCH (19:48)
--- NOTE | 2021-07-29 20:06 | CT Scan Report ---
ABDOMEN AND PELVIS CT WITH ORAL CONTRAST CT DOSE: 1350.43 mGy.cm HISTORY: Generalized abdominal pain. TECHNIQUE: Multiaxial CT images of the abdomen and pelvis were performed following the use of oral co ntrast. A dose lowering technique was utilized adhering to the principles of ALARA. COMPARISON STUDY: Pelvis CT 07/20/2021. Abdomen and pelvis CT 07/10/2021. FINDINGS: Mild dependent changes seen within the lung bases. No pneumoperitoneum. No pneumatosis. No suspicious lytic or blastic osseous lesions. L4-5 posterior decompression fusion with pedicle screws and rods is again noted. Mild deformity within the right anterior seventh through ninth ribs and the left anterior ninth rib are new from the prior study and may represent acute to subacute nondisplaced fractures. There are are old, healed additional bilateral rib fractures. Fat-containing midline vent ral hernias are again noted. Advanced degenerative changes again noted within the bilateral hips. The re is a moderate to large hiatus hernia, unchanged. Cholecystectomy. The unenhanced liver, spleen, ad renal glands, and pancreas are unremarkable. Normal caliber abdominal aorta. No retroperitoneal lymph adenopathy. No renal or ureteral stones. No hydronephrosis. The bladder is mildly distended. No bladd er wall thickening. The 4.9 cm hypodense right renal cyst is again noted. Prior hysterectomy. Mild pe lvic floor collapse, unchanged. No pelvic free fluid. Colonic diverticulosis. No evidence for acute d iverticulitis. Moderate well-formed stool within the proximal colon. No bowel wall thickening or obst ruction. The appendix appears surgically absent. IMPRESSION: 1. No bowel wall thickening or obstruction. 2. Colonic diverticulosis. No evidence for acute diverticulitis. 3. Mild deformity within the right anterior seventh through ninth ribs and the left anterior ninth ri b which is new from the prior studies. Therefore, this favors acute to subacute rib fractures. 4. Moderate to large hiatus hernia, unchanged. 5. Additional stable findings as described above. ACT 112: Negative or not required by law. Electronically signed by: Drew Noyola M.D. 07/29/2021 8:05 PM
[2021-07-30] MEDS: traMADol HCL 50 MG TABLET PO PRN ×4 (08:52→21:57)
[2021-07-30] MEDS: QUEtiapine FUMARATE 25 MG TABLET PO SCH ×3 (09:00→19:45)
[2021-07-30] MEDS: APIXABAN 5 MG TABLET PO SCH (09:00)
[2021-07-30] MEDS: PANTOprazole 40 MG TAB PO SCH (09:00)
[2021-07-30] MEDS: POTASSIUM CHLORIDE CRTAB 20 MEQ TABCR PO SCH (09:00)
[2021-07-30] MEDS: FUROSEMIDE 40 MG TAB PO SCH (09:00)
[2021-07-30] MEDS: DOCUSATE SODIUM/SENNA 50/8.6MG TAB PO SCH (09:00)
[2021-07-30] MEDS: GABAPENTIN 300 MG CAP PO SCH ×2 (09:00→19:46)
[2021-07-30] MEDS: MAGNESIUM OXIDE 400 MG TAB PO SCH ×2 (09:00→19:46)
[2021-07-30] MEDS: lamoTRIgine 100 MG TAB PO SCH ×2 (09:01→19:46)
[2021-07-30] MEDS: ONDANSETRON 4 MG OD TAB PO PRN (10:02)
[2021-07-30] MEDS: LIDOCAINE 5% 1 PATCH TD SCH ×2 (11:39→19:49)
[2021-07-30] MEDS: DICLOFENAC SOD 1% GEL 100 GM TUBE EXT SCH ×3 (11:39→19:49)
[2021-07-30] MEDS: ACETAMINOPHEN 325 MG TAB PO PRN ×2 (11:45→16:17)
[2021-07-30] MEDS ORDERED: traMADol HCL 50 MG TABLET PO PRN (11:59)
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
--- NOTE | 2021-07-30 18:02 | Psychiatric Progress Note ---
Date of Service July 30, 2021 Impression / Recommendations Impression 71 yo female with a history of seizure disorder with cognitive and behavioral changes, progressive irritability during hospital stay. Differential includes dementia with behavioral disturbance, delirium, or medication induced mood issue. 07/30/2021--significantly calmer than last contact, tearfulness is appropriate to situation and seems like a fair amount of mood changes are pain related but also some sundowning likely (1) Cognitive and behavioral changes: will add 5 pm dose of Seroquel 25 mg for diurnal variations. Patient is also requesting trial of higher dose at hs to help with sleep disturbance. Dr. Salas updated. patient tolerated discussion of risks of Seroquel, no hypotension, made aware of need for monitoring for longer term metabolic side effects, TD and reports of increased risk of in elderly dementia patients. The patient is resistant to any dx of cognitive disorder but has been accepting of medication. Risk Factors Assessment Do You Have Access To A Gun?: No Interval History Identifying Information 71 yo female with behavioral disturbance related to presume underlying major cognitive disorder, seen by myself earlier in stay, primary clinical responsbility for consult service transitioned back to me from Dr. Sinclair. Chief Complaint "I'm sorry, I'm embarrassed I've been so irritable, I also feel guilty". Subjective Subjective Patient was seen & assessed and interval progress reviewed via chart and with liaison. Since last contact patient started on low dose Seroquel. Tends to have breakthrough irritability in the afternoon/evening, unclear how much is likely sundowning vs fatigue in dealing with hip pain. ROS: denies SI/HI/gomez, states that upset her boyfriend is paying to hold an apartment for her when has to go to rehab. voiced understanding of need for additional PT. Physical Exam Psychiatric Orientation: alert, oriented to person and oriented to place Apperance: appropriately dressed and appropriately groomed Eye Contact: good eye contact Motor Behavior: no abnormal motor movements Speech: normal rate/rhythm/volume of speech Affect: + depressed affect mood is "teary right now as I'm homesick" Thought Process: + concrete thought process Thought Content: reality based without delusions Suicidal Thoughts: denies suicidal thoughts Homicidal Thoughts: denies homicidal thoughts Hallucinations: no auditory hallucinations and no visual hallucinations Cognition: attention grossly intact and language grossly intact Estimated Intelligence: consistent with education level Insight: + limited insight Vital Signs (Past 24 Hours) Last Vital Signs Temp 36.5 C 07/30/21 16:00 Pulse 108 H 07/30/21 16:00 Resp 18 07/30/21 16:00 BP 123/81 07/30/21 16:00 Pulse Ox 96 07/30/21 16:00 Results & Data ([facility]) Current Inpatient Medications Current Inpatient Medications: Current Inpatient Medications Acetaminophen (Acetaminophen 325 Mg Tab) 650 mg PO Q4H PRN PRN Reason: pain/fever Stop: 08/19/21 18:21 Last Admin: 07/30/21 16:17 Dose: 650 mg Documented by: Albuterol (Albuterol Hfa 8 Gm Inhaler) 2 puffs INH QID PRN PRN Reason: asthma Stop: 08/19/21 18:21 Apixaban (Apixaban 5 Mg Tablet) 5 mg PO QAM [facility] Stop: 08/20/21 08:59 Last Admin: 07/30/21 09:00 Dose: 5 mg Documented by: Diclofenac Sodium (Diclofenac Sod 1% Gel 100 Gm Tube) 2 gm EXT TID [facility] Stop: 08/21/21 20:59 Last Admin: 07/30/21 14:41 Dose: 2 gm Documented by: Famotidine (Famotidine 20 Mg Tab) 20 mg PO [facility] Stop: 08/19/21 20:59 Last Admin: 07/29/21 19:48 Dose: 20 mg Documented by: Furosemide (Furosemide 40 Mg Tab) 40 mg PO QAM [facility] Stop: 08/20/21 08:59 Last Admin: 07/30/21 09:00 Dose: 40 mg Documented by: Gabapentin (Gabapentin 300 Mg Cap) 300 mg PO BID [facility] Stop: 08/26/21 20:59 Last Admin: 07/30/21 09:00 Dose: 300 mg Documented by: Lamotrigine (Lamotrigine 100 Mg Tab) 300 mg PO BID [facility] Stop: 08/19/21 20:59 Last Admin: 07/30/21 09:01 Dose: 300 mg Documented by: Lidocaine (Lidocaine 5% 1 Patch) 1 patch TD [facility] Stop: 08/21/21 17:29 Last Admin: 07/29/21 19:49 Dose: 1 patch Documented by: Lidocaine (Lidocaine 5% 1 Patch) 1 patch TD [facility] Stop: 08/27/21 11:29 Last Admin: 07/30/21 11:39 Dose: 1 patch Documented by: Magnesium Hydroxide (Magnesium Hydroxide Susp 30 Ml Udc) 30 ml PO Q6H PRN PRN Reason: Constipation Stop: 08/25/21 10:10 Last Admin: 07/27/21 08:45 Dose: 30 ml Documented by: Magnesium Oxide (Magnesium Oxide 400 Mg Tab) 200 mg PO BID [facility] Stop: 08/19/21 20:59 Last Admin: 07/30/21 09:00 Dose: 200 mg Documented by: Meclizine HCl (Meclizine 12.5 Mg Tab) 12.5 mg PO Q6H PRN PRN Reason: Vertigo Stop: 08/23/21 14:20 Last Admin: 07/24/21 14:37 Dose: 12.5 mg Documented by: Miscellaneous (Remove Lidoderm Patch) 1 ea N/A DAILY@0900 [facility] Stop: 08/22/21 05:29 Last Admin: 07/30/21 11:40 Dose: 1 ea Documented by: Carolineaneous (Remove Lidoderm Patch) 1 ea N/A DAILY@2100 [facility] Stop: 08/27/21 20:59 Last Admin: 07/29/21 19:49 Dose: 1 ea Documented by: Olanzapine (Olanzapine 10 Mg/2.1 Ml Sdv) 5 mg IM Q6H PRN PRN Reason: Anxiety/Agitation Stop: 08/20/21 18:14 Last Admin: 07/27/21 22:21 Dose: 5 mg Documented by: Ondansetron HCl (Ondansetron Inj 2 Mg/Ml 2 Ml Vial) 4 mg IV Q6H PRN PRN Reason: Nausea Stop: 08/19/21 18:21 Ondansetron HCl (Ondansetron 4 Mg Od Tab) 4 mg PO Q6H PRN PRN Reason: Nausea Stop: 08/26/21 19:55 Last Admin: 07/30/21 10:02 Dose: 4 mg Documented by: Pantoprazole Sodium (Pantoprazole 40 Mg Tab) 40 mg PO DAILY [facility] Stop: 08/20/21 08:59 Last Admin: 07/30/21 09:00 Dose: 40 mg Documented by: Potassium Chloride (Potassium Chloride Crtab 20 Meq Tabcr) 20 meq PO QAM [facility] Stop: 08/20/21 08:59 Last Admin: 07/30/21 09:00 Dose: 20 meq Documented by: Quetiapine Fumarate (Quetiapine Fumarate 25 Mg Tablet) 25 mg PO BIDM [facility] Stop: 08/29/21 16:59 Last Admin: 07/30/21 17:41 Dose: 25 mg Documented by: Quetiapine Fumarate (Quetiapine Fumarate 25 Mg Tablet) 50 mg PO [facility] Stop: 08/29/21 20:59 Senna/Docusate Sodium (Docusate Sodium/Senna 50/8.6mg Tab) 1 [facility] Stop: 08/23/21 13:24 Last Admin: 07/30/21 09:00 Dose: 1 tab Documented by: Tramadol HCl (Tramadol Hcl 50 Mg Tablet) 50 mg PO Q6H PRN PRN Reason: Pain 1-5 Stop: 08/21/21 17:24 Tramadol HCl (Tramadol Hcl 50 Mg Tablet) 100 mg PO Q4H PRN PRN Reason: Pain 6-10 Stop: 08/29/21 11:57 Last Admin: 07/30/21 17:41 Dose: 100 mg Documented by:
[2021-07-30] MEDS: FAMOTIDINE 20 MG TAB PO SCH (19:49)
[2021-07-31] MEDS: traMADol HCL 50 MG TABLET PO PRN ×4 (06:37→23:33)
[2021-07-31] MEDS: FUROSEMIDE 40 MG TAB PO SCH (08:43)
[2021-07-31] MEDS: PANTOprazole 40 MG TAB PO SCH (08:43)
[2021-07-31] MEDS: APIXABAN 5 MG TABLET PO SCH (08:43)
[2021-07-31] MEDS: QUEtiapine FUMARATE 25 MG TABLET PO SCH ×3 (08:43→20:25)
[2021-07-31] MEDS: POTASSIUM CHLORIDE CRTAB 20 MEQ TABCR PO SCH (08:43)
[2021-07-31] MEDS: DOCUSATE SODIUM/SENNA 50/8.6MG TAB PO SCH (08:43)
[2021-07-31] MEDS: lamoTRIgine 100 MG TAB PO SCH ×2 (08:44→20:26)
[2021-07-31] MEDS: GABAPENTIN 300 MG CAP PO SCH ×2 (08:44→20:25)
[2021-07-31] MEDS: MAGNESIUM OXIDE 400 MG TAB PO SCH ×2 (08:44→20:24)
[2021-07-31] MEDS: LIDOCAINE 5% 1 PATCH TD SCH (08:48)
[2021-07-31] MEDS: DICLOFENAC SOD 1% GEL 100 GM TUBE EXT SCH ×3 (08:48→20:23)
[2021-07-31 10:03] LABS: Basophils # (auto) 0.02 K/uL (0-0.2); Basophils % (auto) 0.3 %; Eosinophils % (auto) 4.3 %; Hematocrit (blood only) 36.7 % (37-47); Hemoglobin 11.6 g/dL (12.0-16.0); Immature Granulocytes # (auto) 0.01 K/uL (0.00-0.02); Immature Granulocytes % (auto) 0.1 %; Lymphocytes # (auto) 1.09 K/uL (1.2-3.4); Lymphocytes % (auto) 15.5 %; Mean Corpuscular Hemoglobin 26.5 pg (25-34); Mean Corpuscular Hgb Conc 31.6 g/dL (32-36); Mean Corpuscular Volume 83.8 fL (80-100); Mean Platelet Volume 10.9 fL (7.4-10.4); Monocytes # (auto) 0.44 K/uL (0.11-0.59); Monocytes % (auto) 6.3 %; Neutrophils # (auto) 5.18 K/uL (1.4-6.5); Neutrophils % (auto) 73.5 %; Platelet Count 177 K/uL (130-400); RDW Coefficient of Variation 16.5 % (11.5-14.5); RDW Standard Deviation 50.2 fL (36.4-46.3); Red Blood Count 4.38 M/uL (4.2-5.4); White Blood Count 7.04 K/uL (4.8-10.8)
[2021-07-31 10:27] LABS: BUN Creatinine Ratio 13.9 (10-20); Creatinine Clr Calc Pharmacy 59.4 ml/min; Est GFR (African American) 53.4 ml/min; Potassium 3.8 mmol/L (3.5-5.1)
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
[2021-07-31] MEDS: FAMOTIDINE 20 MG TAB PO SCH (20:27)
[2021-08-01] MEDS: GABAPENTIN 300 MG CAP PO SCH ×2 (07:26→19:47)
[2021-08-01] MEDS: QUEtiapine FUMARATE 25 MG TABLET PO SCH ×3 (07:26→19:48)
[2021-08-01] MEDS: APIXABAN 5 MG TABLET PO SCH (07:27)
[2021-08-01] MEDS: POTASSIUM CHLORIDE CRTAB 20 MEQ TABCR PO SCH (07:27)
[2021-08-01] MEDS: FUROSEMIDE 40 MG TAB PO SCH (07:27)
[2021-08-01] MEDS: MAGNESIUM OXIDE 400 MG TAB PO SCH ×2 (07:28→19:49)
[2021-08-01] MEDS: lamoTRIgine 100 MG TAB PO SCH ×2 (07:29→19:47)
[2021-08-01] MEDS: PANTOprazole 40 MG TAB PO SCH (07:30)
[2021-08-01] MEDS: DOCUSATE SODIUM/SENNA 50/8.6MG TAB PO SCH (07:30)
[2021-08-01] MEDS: LIDOCAINE 5% 1 PATCH TD SCH (07:33)
[2021-08-01] MEDS: DICLOFENAC SOD 1% GEL 100 GM TUBE EXT SCH ×3 (07:33→19:49)
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
[2021-08-01] MEDS: FAMOTIDINE 20 MG TAB PO SCH (19:46)
[2021-08-01] MEDS: traMADol HCL 50 MG TABLET PO PRN (20:28)
[2021-08-02] MEDS: lamoTRIgine 100 MG TAB PO SCH ×2 (07:29→20:23)
[2021-08-02] MEDS: MAGNESIUM OXIDE 400 MG TAB PO SCH ×2 (07:29→20:24)
[2021-08-02] MEDS: PANTOprazole 40 MG TAB PO SCH (07:30)
[2021-08-02] MEDS: FUROSEMIDE 40 MG TAB PO SCH (07:30)
[2021-08-02] MEDS: DICLOFENAC SOD 1% GEL 100 GM TUBE EXT SCH ×3 (07:30→20:26)
[2021-08-02] MEDS: LIDOCAINE 5% 1 PATCH TD SCH (07:30)
[2021-08-02] MEDS: APIXABAN 5 MG TABLET PO SCH (07:30)
[2021-08-02] MEDS: GABAPENTIN 300 MG CAP PO SCH ×2 (07:30→20:22)
[2021-08-02] MEDS: QUEtiapine FUMARATE 25 MG TABLET PO SCH ×3 (07:30→20:25)
[2021-08-02] MEDS: POTASSIUM CHLORIDE CRTAB 20 MEQ TABCR PO SCH (07:30)
[2021-08-02] MEDS: DOCUSATE SODIUM/SENNA 50/8.6MG TAB PO SCH (07:30)
[2021-08-02] MEDS: traMADol HCL 50 MG TABLET PO PRN ×2 (16:34→20:35)
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
--- NOTE | 2021-08-02 19:02 | Communication Note ---
Date of Service: August 02, 2021 interim progress reviewed. Less restless and less irritability. Orientation varies per shift and poor memory re: medical recs. Psychiatrically stable for discharge to appropriate level of nursing care.
[2021-08-02] MEDS: FAMOTIDINE 20 MG TAB PO SCH (20:22)
[2021-08-03] MEDS: traMADol HCL 50 MG TABLET PO PRN (03:32)
[2021-08-03] MEDS: APIXABAN 5 MG TABLET PO SCH (07:39)
[2021-08-03] MEDS: POTASSIUM CHLORIDE CRTAB 20 MEQ TABCR PO SCH (07:39)
[2021-08-03] MEDS: FUROSEMIDE 40 MG TAB PO SCH (07:39)
[2021-08-03] MEDS: lamoTRIgine 100 MG TAB PO SCH (07:40)
[2021-08-03] MEDS: QUEtiapine FUMARATE 25 MG TABLET PO SCH ×2 (07:40→15:41)
[2021-08-03] MEDS: GABAPENTIN 300 MG CAP PO SCH (07:40)
[2021-08-03] MEDS: MAGNESIUM OXIDE 400 MG TAB PO SCH (07:40)
[2021-08-03] MEDS: PANTOprazole 40 MG TAB PO SCH (07:40)
[2021-08-03] MEDS: DICLOFENAC SOD 1% GEL 100 GM TUBE EXT SCH ×2 (07:41→14:07)
[2021-08-03] MEDS: LIDOCAINE 5% 1 PATCH TD SCH (07:41)
[2021-08-03] MEDS: DOCUSATE SODIUM/SENNA 50/8.6MG TAB PO SCH (07:42)
[2021-08-03] MEDS: ONDANSETRON 4 MG OD TAB PO PRN (07:44)
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
== END 2021-08-03 17:02 | DRG 947 ==
LOC: 3W 08:23 → ED 08:23 → SUATTDRO 16:04 → 3W 17:50 → SUATTDRO 07-21 18:13

== ENCOUNTER 2021-11-17 20:21 | Observation (INO) ==
[2021-11-17] MEDS ORDERED: ALBUT/IPRATROP 3MG/0.5MG NEB 3 ML VIAL NEB STA (21:41)
[2021-11-17 22:38] LABS: Basophils # (auto) 0.03 K/uL (0-0.2); Basophils % (auto) 0.4 %; Eosinophils # (auto) 0.31 K/uL (0-0.5); Eosinophils % (auto) 3.8 %; Hematocrit (blood only) 29.8 % (37-47); Hemoglobin 9.2 g/dL (12.0-16.0); Immature Granulocytes # (auto) 0.02 K/uL (0.00-0.02); Immature Granulocytes % (auto) 0.2 %; Lymphocytes # (auto) 1.25 K/uL (1.2-3.4); Lymphocytes % (auto) 15.4 %; Mean Corpuscular Hemoglobin 26.1 pg (25-34); Mean Corpuscular Hgb Conc 30.9 g/dL (32-36); Mean Corpuscular Volume 84.4 fL (80-100); Mean Platelet Volume 10.5 fL (7.4-10.4); Monocytes # (auto) 0.59 K/uL (0.11-0.59); Monocytes % (auto) 7.2 %; Neutrophils # (auto) 5.94 K/uL (1.4-6.5); Platelet Count 211 K/uL (130-400); RDW Coefficient of Variation 17.3 % (11.5-14.5); RDW Standard Deviation 53.7 fL (36.4-46.3); Red Blood Count 3.53 M/uL (4.2-5.4); White Blood Count 8.14 K/uL (4.8-10.8)
[2021-11-17 22:55] LABS: Alanine Aminotransferase 14 (12-78); Albumin Level 3.2 gm/dl (3.4-5.0); Aspartate Aminotransferase 15 U/L (15-37); BUN Creatinine Ratio 24.8 (10-20); Blood Urea Nitrogen 16 mg/dl (7-18); Calcium 8.6 mg/dl (8.5-10.1); Carbon Dioxide 25 mmol/L (21-32); Chloride 114 mmol/L (98-107); Creatinine Clr Calc Pharmacy 114.2 ml/min; Est GFR (African American) 102.3 ml/min; Est GFR (Non-African American) 88.3 ml/min; Glucose 110 mg/dl (70-99); Sodium 145 mmol/L (136-145)
[2021-11-17 23:00] LABS: Albumin Globulin Ratio 0.9 (0.9-2); Alkaline Phosphatase 120 U/L (45-117); Globulin 3.8 gm/dl (2.5-4.0); NT Pro B Type Natriuretic Pept 1444 pg/ml (0-900); Troponin I < 0.015 ng/ml (0-0.045)
[2021-11-17 23:11] LABS: Bilirubin,Total 0.3 mg/dl (0.2-1)
[2021-11-18 00:02] LABS: Influenza A virus by PCR Negative (Neg); Influenza B virus by PCR Negative (Neg); RSV by PCR Negative (Neg); SARS CoV2 RNA(COVID-19) InHosp NEGATIVE (Negative)
[2021-11-18] MEDS ORDERED: FUROSEMIDE 40 MG/4 ML VIAL IV ONE (00:33)
[2021-11-18] MEDS ORDERED: methylPREDNISolone 125 MG/2 ML VIAL IV STA (00:33)
[2021-11-18] MEDS ORDERED: NITROGLYCERIN 2% OINTMENT 30GM TUBE EXT ONE (00:35)
[2021-11-18] MEDS ORDERED: ACETAMINOPHEN 500 MG TAB PO STA (01:33)
[2021-11-18] MEDS ORDERED: POTASSIUM CHLORIDE 10 MEQ TABCR PO STA (01:34)
--- NOTE | 2021-11-18 01:34 | Emergency Department Note ---
History of Present Illness General Chief complaint: Shortness of Breath/Dyspnea Stated complaint: SHORT OF BREATH/CHEST DISCOMFORT Time Seen by Provider: 11/17/21 21:31 History of Present Illness Maximum Pain Intensity: 10 This 71-year-old on Eliquis presents to the ER complaining of shortness of breath and cough who feels like it might be her COPD Location: Generalized Quality: Short of breath Severity: Moderate Duration: Past 2 days Timing: Started few days ago Context: Breathing got worse and patient came in Modifying factors: better with sitting up; worse with laying down Patient states she is been taking all her medications as directed to include her Lasix and Eliquis. She is vaccinated for Covid. Patient complains of cough chest pain or shortness of breath. She is unsure if her legs are more swollen. She does not weigh herself. Patient denies fevers, abdominal pain, vomiting, diarrhea, flulike illness. Home Medications Medication Instructions Recorded Confirmed Type magnesium oxide 400 mg (241.3 mg 200 mg PO BID 90 Days #90 tab 07/28/20 11/17/21 Rx magnesium) tablet gabapentin 300 mg capsule 300 mg PO BID 08/21/20 11/17/21 History apixaban 5 mg tablet (Eliquis) 5 mg PO QAM #90 tab 12/22/20 11/17/21 Rx diclofenac sodium 1 % topical gel 1 ea TOPICAL TID MDD 16 grams 07/10/21 11/17/21 History acetaminophen 325 mg tablet 650 mg PO Q4 PRN 08/11/21 11/17/21 History (Tylenol) docusate sodium 100 mg capsule 100 mg PO BID 08/11/21 11/17/21 History lamotrigine 100 mg tablet 300 mg PO Q12 08/11/21 11/17/21 History (Lamictal) ondansetron 4 mg disintegrating 4 mg TRANSLINGUAL Q4 PRN 08/11/21 11/17/21 History tablet lorazepam 0.5 mg tablet 0.5 mg PO BID PRN #60 tab 08/17/21 11/17/21 Rx fluticasone furoate 50 50 mcg INHALATION DAILY 08/25/21 11/17/21 History mcg/actuation blister powder for inhalation polyethylene glycol 3350 17 17 g PO DAILY 09/08/21 11/17/21 History gram/dose oral powder (Miralax) ibuprofen 200 mg tablet (Advil) 200 mg PO Q6H PRN 09/21/21 11/17/21 History levetiracetam 100 mg/mL oral 500 mg PO BID 09/21/21 11/17/21 History solution pantoprazole 40 mg tablet,delayed 40 mg PO QAM 09/21/21 11/17/21 History release famotidine 20 mg tablet 20 mg PO QAM tab 10/05/21 11/17/21 History potassium chloride 10 mEq 20 meq PO BID #360 tab 10/11/21 11/17/21 Rx tablet,extended release furosemide 40 mg tablet 40 mg PO QAM #90 tab 10/19/21 11/17/21 Rx albuterol sulfate 90 mcg/actuation 2 puff INHALATION QID PRN #8.5 g 11/10/21 11/17/21 Rx aerosol inhaler meclizine 12.5 mg tablet 12.5 mg PO Q6H PRN #30 tab 11/10/21 11/17/21 Rx Hospital [facility] ([facility] ea 11/17/21 Rx Bed) Allergies Allergy/AdvReac Type Severity Reaction Status Date / Time latex Allergy Intermediate Rash, itchy Verified 11/17/21 20:52 adhesive Allergy Mild Itchy Verified 11/17/21 20:52 bacitracin Allergy Unknown Unknown Verified 11/17/21 20:52 [From Neosporin ([id number])] neomycin Allergy Unknown Unknown Verified 11/17/21 20:52 [From Neosporin ([id number])] polymyxin B Allergy Unknown Unknown Verified 11/17/21 20:52 [From Neosporin ([id number])] metoclopramide [From Reglan] AdvReac Intermediate Dyskinetic Verified 11/17/21 20:52 reaction Past Med/Surg History Medical History Aortic stenosis Mild aortic stenosis (SUSAN 1.4 cm, mean gradient 15.7 mmHg) per 09/06/18 DSE Asthma Atrial fibrillation Dx 2016; on Eliquis Degenerative joint disease of right knee Diverticulitis Remote hx GERD (gastroesophageal reflux disease) Hiatal hernia Has had discussion for future surgical repair Hypertension Migraine Osteoarthritis Poor historian Rheumatoid arthritis Sciatica 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), on anticonvulsants Temporomandibular joint disorder No locking Vertigo Surgical History History of appendectomy History of arthroplasty of left knee History of blepharoplasty History of cardioversion History of cataract surgery R/L History of cervical discectomy C5-C7 (2008) History of colonoscopy History of esophageal dilatation History of esophagogastroduodenoscopy (EGD) History of tooth extraction History of total hysterectomy with bilateral salpingo-oophorectomy (BSO) History of total left knee replacement (TKR) History of total right knee replacement (TKR) Right TKA (10/08/18): SAB at L3-L4 (x1 attempt) + PNB at [facility] History of vascular access device hx of Right IJ triple lumen central venous cath (2010), since removed S/P cholecystectomy Family History Other Family history non-contributory No family history of adverse response to anesthesia Denies family history of Ovarian cancer Prostate cancer Breast cancer Colorectal cancer Social History Smoking Status: Unknown if ever smoked Second Hand Exposure: No; Do You Dip or Chew Tobacco: No; Hx Alcohol Use: No Hx Substance Use: No Preferred Language: Finnish Communication Ability: Effective Visual Impairment: No Limitations Payroll Processor Required: No Beliefs That Will Affect Care: None marital status: Single Current Living Situation: Alone current occupational status: retired Other Information That Helps Us Care for You: No Feels Safe at Home: Yes Safety Concerns: Feels Safe At This Time Assistive Devices: Oxygen - Continuous and Walker Review of Systems A total of 10 systems reviewed and were otherwise negative Physical Exam Vital Signs Vital Signs - 24 hr 11/17/21 20:51 11/17/21 22:51 11/17/21 23:10 Temperature 36.6 C Temperature Source Oral Pulse Rate 93 H Pulse Rate [Apical] 82 Respiratory Rate 18 20 Respiratory Effort / Characteristics Non-Labored Spontaneous Non-Labored Spontaneous Respiratory Depth Normal Normal Respiratory Pattern Regular Regular Blood Pressure 125/87 Blood Pressure [Right Arm] 182/75 H Blood Pressure Mean 99 Blood Pressure Mean [Right Arm] 110 Blood Pressure Position Sitting Blood Pressure Position [Right Arm] Sitting Pulse Oximetry 97 94 91 Oxygen Delivery Method Room Air Room Air Room Air Oxygen Flow Rate 97 Sepsis Recent Fever Within 48 Hours No Sepsis New/Unexplained Change in Mental Status No Sepsis Action Taken by Nursing No Action Required 11/18/21 00:00 Temperature Temperature Source Pulse Rate Pulse Rate [Apical] 85 Respiratory Rate 18 Respiratory Effort / Characteristics Non-Labored Spontaneous Respiratory Depth Normal Respiratory Pattern Regular Blood Pressure Blood Pressure [Right Arm] 175/72 H Blood Pressure Mean Blood Pressure Mean [Right Arm] 106 Blood Pressure Position Blood Pressure Position [Right Arm] Sitting Pulse Oximetry 96 Oxygen Delivery Method Room Air Oxygen Flow Rate Sepsis Recent Fever Within 48 Hours Sepsis New/Unexplained Change in Mental Status Sepsis Action Taken by Nursing VITALS: Vitals are noted on the nurse's note and reviewed by myself. Vital signs hypertensive. GENERAL: Elderly female appears short of breath, +2 pitting edema to the lower extremities SKIN: The skin was without rashes, or bruising. There is no tenting of the skin. Capillary reflex less than 2 seconds. HEAD: Normocephalic atraumatic. EARS: External auditory canals clear EYES: Pupils equal round and reactive to light and accommodation. Conjunctivae without injection, sclerae without icterus. Extraocular movements intact. NOSE: Patent, turbinates without inflammation or discharge. MOUTH: Mucous membranes moist. Pharynx without erythema or exudate. Uvula midline. Airway patent. Tongue does not deviate. NECK: Supple without nuchal rigidity. No lymphadenopathy. No thyromegaly. Cervical spine is nontender. No JVD. HEART: Regular rate and rhythm LUNGS: Mild diffuse end expiratory wheezes, bibasilar Rales. no retractions or accessory muscle use. ABDOMEN: Positive bowel sounds x 4. Normal tympanic percussion. Soft, nontender, without masses or organomegaly. Valdez sign negative. No guarding or rebound tenderness. No CVA tenderness MUSCULOSKELETAL: No muscle atrophy noted. +2 pitting edema up to the mid tib- fib bilaterally. NEURO: Patient was alert and oriented to person place and time. Normal sensation to light and sharp touch. No focal neurological deficits. Course Administered Medications Discontinued Medications Acetaminophen (Acetaminophen 500 Mg Tab) 1,000 mg PO NOW STA Stop: 11/18/21 01:34 Last Admin: 11/18/21 02:17 Dose: 1,000 mg Documented by: [id number] Acetaminophen (Acetaminophen 325 Mg Tab) 650 mg PO Q4H PRN PRN Reason: Pain or Fever Stop: 12/18/21 05:23 Last Admin: 11/18/21 15:16 Dose: 650 mg Documented by: [id number] Albuterol (Albut/Ipratrop 3mg/0.5mg Neb 3 Ml Vial) 3 ml NEB NOW STA; Protocol Stop: 11/17/21 21:42 Last Admin: 11/17/21 23:01 Dose: 3 ml Documented by: [id number] Albuterol (Albut/Ipratrop 3mg/0.5mg Neb 3 Ml Vial) 3 ml NEB Q8R [facility]; Protocol Stop: 12/18/21 06:59 Last Admin: 11/18/21 15:14 Dose: 3 ml Documented by: [id number] Admin: 11/18/21 07:19 Dose: 3 ml Documented by: [id number] Apixaban (Apixaban 5 Mg Tablet) [facility] [place] Stop: 12/18/21 08:59 Last Admin: 11/18/21 09:34 Dose: 5 mg Documented by: [id number] Docusate Sodium (Docusate Sodium 100 Mg Cap) 100 mg PO BID [facility] Stop: 12/18/21 08:59 Last Admin: 11/18/21 09:34 Dose: 100 mg Documented by: [id number] Famotidine (Famotidine 20 Mg Tab) 20 mg PO QAM [facility] Stop: 12/18/21 08:59 Last Admin: 11/18/21 09:34 Dose: 20 mg Documented by: [id number] Fluticasone Furoate (Fluticasone Furoate 100mcg 14 Puffs/Inhaler) 1 puffs INH DAILY [facility] Stop: 12/18/21 08:59 Last Admin: 11/18/21 09:31 Dose: 1 puffs Documented by: [id number] Furosemide (Furosemide 40 Mg/4 Ml Vial) 40 mg IV ONE ONE Stop: 11/18/21 00:34 Last Admin: 11/18/21 01:34 Dose: 40 mg Documented by: [id number] Furosemide (Furosemide 40 Mg/4 Ml Vial) 40 mg IV DAILY [facility] Stop: 12/18/21 08:59 Last Admin: 11/18/21 09:40 Dose: 40 mg Documented by: [id number] Gabapentin (Gabapentin 300 Mg Cap) 300 mg PO BID [facility] Stop: 12/18/21 08:59 Last Admin: 11/18/21 09:34 Dose: 300 mg Documented by: [id number] Ketorolac Tromethamine (Ketorolac Tromethamine 15 Mg/Ml Vial) 15 mg IV NOW STA Stop: 11/18/21 03:50 Last Admin: 11/18/21 04:00 Dose: 15 mg Documented by: [id number] Ketorolac Tromethamine (Ketorolac Tromethamine 15 Mg/Ml Vial) 15 mg IV NOW ONE Stop: 11/18/21 15:38 Last Admin: 11/18/21 16:41 Dose: Not Given Documented by: [id number] Ketorolac Tromethamine (Ketorolac Tromethamine 15 Mg/Ml Vial) Confirm Administered Dose 15 mg .ROUTE .STK-MED ONE Stop: 11/18/21 15:47 Last Admin: 11/18/21 15:49 Dose: 15 mg Documented by: [id number] Lamotrigine (Lamotrigine 100 Mg Tab) 300 mg PO Q12 [facility] Stop: 12/18/21 08:59 Last Admin: 11/18/21 09:34 Dose: 300 mg Documented by: [id number] Levetiracetam (Levetiracetam 500 Mg Tab) 500 mg PO BID [facility] Stop: 12/18/21 08:59 Last Admin: 11/18/21 09:33 Dose: 500 mg Documented by: [id number] Magnesium Oxide (Magnesium Oxide 400 Mg Tab) 200 mg PO BID [facility] Stop: 12/18/21 08:59 Last Admin: 11/18/21 09:34 Dose: 200 mg Documented by: [id number] Methylprednisolone (Methylprednisolone 125 Mg/2 Ml Vial) 125 mg IV NOW STA Stop: 11/18/21 00:34 Last Admin: 11/18/21 01:27 Dose: 125 mg Documented by: [id number] Nitroglycerin (Nitroglycerin 2% Ointment 30gm Tube) 0.5 inch EXT NOW ONE Stop: 11/18/21 00:36 Last Admin: 11/18/21 01:27 Dose: 0.5 inch Documented by: [id number] Pantoprazole Sodium (Pantoprazole 40 Mg Tab) 40 mg PO QAM [facility] Stop: 12/18/21 08:59 Last Admin: 11/18/21 09:34 Dose: 40 mg Documented by: [id number] Polyethylene Glycol (Polyethylene (Miralax) 17 Gm Pack) 17 gm PO DAILY [facility] Stop: 12/18/21 08:59 Last Admin: 11/18/21 09:32 Dose: 17 gm Documented by: [id number] Potassium Chloride (Potassium Chloride 10 Meq Tabcr) 40 meq PO NOW STA Stop: 11/18/21 01:35 Last Admin: 11/18/21 02:17 Dose: 40 meq Documented by: [id number] Potassium Chloride (Potassium Chloride Crtab 20 Meq Tabcr) 40 meq PO NOW STA Stop: 11/18/21 01:53 Last Admin: 11/18/21 02:23 Dose: Not Given Documented by: [id number] Potassium Chloride (Potassium Chloride Crtab 20 Meq Tabcr) 20 meq PO BID17 [facility] Stop: 12/18/21 08:59 Last Admin: 11/18/21 09:34 Dose: 20 meq Documented by: [id number] Potassium Chloride (Potassium Chloride Crtab 20 Meq Tabcr) 20 meq PO NOW STA Stop: 11/18/21 09:37 Last Admin: 11/18/21 09:47 Dose: 20 meq Documented by: [id number] Medical Decision Making Medical Records Attestation: I reviewed the patient's medical records. Home Medications Current Medication List: was personally reviewed by me Laboratory Data Attestation: I reviewed the patient's lab results. Result diagrams: 11/17/21 22:27 11/18/21 06:47 Lab Results 11/17/21 11/17/21 11/17/21 Range/Units 22:27 22:27 22:27 WBC 8.14 (4.8-10.8) K/uL RBC 3.53 L (4.2-5.4) M/uL Hgb 9.2 L (12.0-16.0) g/dL Hct 29.8 L (37-47) % MCV 84.4 (80-100) fL MCH 26.1 (25-34) pg MCHC 30.9 L (32-36) g/dL RDW Std Deviation 53.7 H (36.4-46.3) fL RDW Coeff of Lucio 17.3 H (11.5-14.5) % Plt Count 211 (130-400) K/uL MPV 10.5 H (7.4-10.4) fL Immature Gran % (Auto) 0.2 % Neut % (Auto) 73.0 % Lymph % (Auto) 15.4 % [place] % (Auto) 7.2 % Eos % (Auto) 3.8 % Baso % (Auto) 0.4 % Neut # (Auto) 5.94 (1.4-6.5) K/uL Lymph # (Auto) 1.25 (1.2-3.4) K/uL [place] # (Auto) 0.59 (0.11-0.59) K/uL Eos # (Auto) 0.31 (0-0.5) K/uL Baso # (Auto) 0.03 (0-0.2) K/uL Immature Gran # (Auto) 0.02 (0.00-0.02) K/uL Sodium 145 (136-145) mmol/L Potassium 3.0 L (3.5-5.1) mmol/L Chloride 114 H (98-107) mmol/L Carbon Dioxide 25 (21-32) mmol/L Anion Gap 6.0 (3-11) BUN 16 (7-18) mg/dl Creatinine 0.66 (0.6-1.2) mg/dl Est Cr Clr Drug Dosing 114.2 ml/min Est GFR ( Amer) 102.3 ml/min Est GFR (Non-Af Amer) 88.3 ml/min BUN/Creatinine Ratio 24.8 H (10-20) Glucose 110 H (70-99) mg/dl Calcium 8.6 (8.5-10.1) mg/dl Magnesium 2.0 (1.8-2.4) mg/dl Total Bilirubin 0.3 (0.2-1) mg/dl AST 15 (15-37) U/L ALT 14 (12-78) Alkaline Phosphatase 120 H (45-117) U/L Troponin I < 0.015 (0-0.045) ng/ml NT-Pro-B Natriuret Pep 1444 H (0-900) pg/ml Total Protein 7.0 (6.4-8.2) gm/dl Albumin 3.2 L (3.4-5.0) gm/dl Globulin 3.8 (2.5-4.0) gm/dl Albumin/Globulin Ratio 0.9 (0.9-2) SARS-CoV-2 (PCR) NEGATIVE (Negative) Influenza Type A (PCR) Negative (Neg) Influenza Type B (PCR) Negative (Neg) RSV (RT-PCR) Negative (Neg) Imaging Data Attestation: I personally reviewed and interpreted this imaging study as follows: MDM Narrative Prior records/ancillary studies reviewed. Triage Nursing notes reviewed. Additional history obtained from nursing The patient's history was concerning for respiratory difficulties. Differential diagnosis: Etiologies such as infections, reactive airway disease, pneumonia, pneumothorax, COPD, CHF, cardiac ischemia, pulmonary embolism, musculoskeletal, gastrointestinal, as well as others were entertained. Physical examination: As above. ER treatment provided: An order was placed for continuous cardiac monitoring. The monitor shows a rate of 60-100 with a sinus rhythm. Nebulizer, Solu-Medrol, Lasix, Nitropaste On reassessment the patient felt better. Diagnostic interpretation by me: The electrocardiogram was ordered for dyspnea EKG: Irregularly irregular with poor baseline with ventricular rate of 86. No acute ST-T wave changes, normal axis, impression A. fib rate controlled interpreted by myself The labs revealed elevated BNP, negative Covid. Negative troponin Imaging studies: Chest x-ray with mild pulmonary congestion without overt failure per my inter pretation. No pneumothorax. Consultation: A consultation was placed with the hospitalist. The case was discussed and diagnostics were reviewed. The patient was evaluated in the ER for further jennifer tment. This appears to be consistent with COPD and CHF exacerbation. Medicine was consulted. Patient was medicated as above. Patient is agreeable treatment plan of admission. The chart was completed utilizing [employer] Speech voice recognition software. Grammatical errors, random word insertions, pronoun errors, and incomplete sentences are an occassional consequence of this system due to software limitations, ambient noise, and hardware issues. Any formal questions or concerns about the content, text, or information contained within the body of this dictation should be directly addressed to the physician assistant center manager for clarification. Impression & Plan Congestive heart failure, Acute exacerbation of chronic obstructive airways disease Discharge Plan Visit Data Chief Complaint: Shortness of Breath/Dyspnea Stated Complaint: SHORT OF BREATH/CHEST DISCOMFORT ED Provider: Chau [facility] ED Midlevel Provider: Mine López Discharge Problem: Congestive heart failure, Acute exacerbation of chronic obstructive airways disease Patient Disposition: Admitted As Inpatient Condition: Fair Discharge Instructions Interventions: ED Discharge Assessment Last Done: 11/18/21 05:43 Addendum November 19, 2021 16:53 HPI: The patient is a 71-year-old woman with a past medical history of COPD, atrial fibrillation on Eliquis who presents emergency department for evaluation of shortness of breath that is evolved over the past 2 days. She reports she feels better when sitting up and it worse when lying down. A/P: EKG demonstrates atrial fibrillation without overt acute ischemia. Chest x-ray with vascular congestion. COVID-19 PCR was negative. Troponin n egative/undetectable. BNP 1400, nonspecific. No prior values for comparison. Treatment with nebulizer, Solu-Medrol, Lasix and Nitropaste. Admission for further management for suspected combination of COPD/CHF. I reviewed the patient's past medical history, medications, and visit nursing notes. I discussed the case with the physician assistant center manager, and agree with the findings and plan as documented in BAUDILIO López's note.
--- NOTE | 2021-11-18 01:39 | History & Physical Report ---
Date of Service November 18, 2021 Assessment & Plan (1) Dyspnea: Plan: Mrs. Salmon is a 71 yo woman with a PMHx of asthma and congestion heart failure who presented for dyspnea and chest heaviness. - Differential includes: acute exacerbation of CHF, acute exacerbation of asthma, acute coronary syndrome - Evidence of pulmonary vasc congestion and elevated BNP favor CHF exacerbation. Lasix 40mg IV given in ED. 40mg IV daily ordered on admission. Continue home oral Kcl supplement. Flores placed for anticipated diuresis. Patient complaint with home diuretic regimen. Question of increase in dietary sodium intake. - wheezing which improved with albuterol neb favors asthma exacerbation. Patient also reported being "low" on one of her home inhalers (question of non- adherence). No preceding URI. Duo neb given in ED; continue q8h. Continue home fluticasone inhaler. Solumedrol 125mg given in ED. Will hold off on further steroid use. - ACS less unlikley given undetectable trop and lack of ST segment changes on EKG. Chest pressure also sounds to have started ~ 1 week ago. I will drawn one more trop in 6 hours. (2) Hypokalemia: Plan: - K low at 3.0 on admission - mag level pending - 40mg PO KCl given in ED - continue home dose 20meQ KCl daily - trend BMP (3) Anemia: Plan: - Hgb 9.2, MCV 84 - normocytic anemia - iron level ordered (4) Atrial fibrillation: Plan: - not in RVR - on anticoagulation with Eliquis (5) Hip osteoarthritis: Plan: - total hip replacement scheduled with [facility] but rescheduled 3 times due to COVID 19 pandemic - Tylenol prn for pain - PT/OT ordered (6) GERD (gastroesophageal reflux disease): Plan: - continue home dose protonix (7) Aortic stenosis: Plan: - history of - murmur noted on exam - preload dependent (8) Seizure disorder: Plan: - continue home dose lamictal and keppra Diet: Low sodium, heart healthy Dvt ppx: On eliquis Dispo: Med/tele Code: Full, I discussed with patient History of Present Illness Primary Care Provider: NIDHI Roman Ms. Salmon is a 71 yo woman with a PMHx of asthma, a-fib (on anticoagulation with eliquis), and CHF who came to the [facility] ED for evaluation of dyspnea and chest heaviness. She first noticed the chest heaviness a week ago - and the dyspnea became most pronounced today. When attempting to move furniture in her apartment, she began to hear herself wheezing. She denies any preceding fever/chills, diaphoresis, cough, nausea/vomiting or diarrhea. She endorses a worsening of her chronic b/l lower extremity edema. She does report that she has been sleeping on a recliner - however this is not due to her becoming dyspneic when laying flat. Instead, she has advanced hip OA and has a hard time climbing into and out of her bed. She was supposed to undergo a R hip replacement with Dr. Ward at [facility] - however her procedure was canceled 3 times due to the coronavirus pandemic. She states the progressive hip pain has limited her ability to keep active. When discussing her asthma medication regimen - she said she uses two inhalers: fluticasone for maintenance (takes daily) and albuterol for rescue. She says "one of them has been low lately." She endorses increased use of rescue inhaler this past week. For her CHF, she denies any missed doses of her lasix 40mg daily. When discussing he diet, she says she does not add salt to food. She has eggs + toast for breakfast. For dinner she "lives on salads" - likes to add a variety of vegetables, cold cuts and cubed cheese to them. Uses ranch dressing. She denies any recent canned soup consumption. No salty snacks like chips or pretzels. Social Hx: She is a non-smoker. No etoh. Has home health services arranged - currently trying to get herself a home hospital bed. She received the first two covid 19 vaccines. When EMS arrived at her apartment, she was reportedly wheezing. She was administered a duo-neb treatment and aspirin 324mg. The wheezing improved after the nebulizer. She was afebrile on arrival with a normal HR, BP elevated to 175/72, satting 96% on room air. Her WBC was normal; Hgb was low at 9.2. Liver and kidney function normal. K low at 3.0. Trop undetectable. COVID 19/Flu/RSV neg. BNP 1444. EKG showing atrial fibrillation at [address] segment changes. CXR without lobar consolidation, no pleural effusions; + pulmonary vascular congestion. She was given Lasix 40mg IV, 0.5inch nitropaste, solumedrol 125mg, a duoneb treatment, and 40mg Kcl. Allergies Allergy/AdvReac Type Severity Reaction Status Date / Time latex Allergy Intermediate Rash, itchy Verified 11/17/21 20:52 adhesive Allergy Mild Itchy Verified 11/17/21 20:52 bacitracin Allergy Unknown Unknown Verified 11/17/21 20:52 [From Neosporin ([id number])] neomycin Allergy Unknown Unknown Verified 11/17/21 20:52 [From Neosporin ([id number])] polymyxin B Allergy Unknown Unknown Verified 11/17/21 20:52 [From Neosporin ([id number])] metoclopramide [From Reglan] AdvReac Intermediate Dyskinetic Verified 11/17/21 20:52 reaction Home Medications Medication Instructions Recorded Confirmed Type magnesium oxide 400 mg (241.3 mg 200 mg PO BID 90 Days #90 tab 07/28/20 11/17/21 Rx magnesium) tablet gabapentin 300 mg capsule 300 mg PO BID 08/21/20 11/17/21 History apixaban 5 mg tablet (Eliquis) 5 mg PO QAM #90 tab 12/22/20 11/17/21 Rx diclofenac sodium 1 % topical gel 1 ea TOPICAL TID MDD 16 grams 07/10/21 11/17/21 History acetaminophen 325 mg tablet 650 mg PO Q4 PRN 08/11/21 11/17/21 History (Tylenol) docusate sodium 100 mg capsule 100 mg PO BID 08/11/21 11/17/21 History lamotrigine 100 mg tablet 300 mg PO Q12 08/11/21 11/17/21 History (Lamictal) ondansetron 4 mg disintegrating 4 mg TRANSLINGUAL Q4 PRN 08/11/21 11/17/21 History tablet lorazepam 0.5 mg tablet 0.5 mg PO BID PRN #60 tab 08/17/21 11/17/21 Rx fluticasone furoate 50 50 mcg INHALATION DAILY 08/25/21 11/17/21 History mcg/actuation blister powder for inhalation polyethylene glycol 3350 17 17 g PO DAILY 09/08/21 11/17/21 History gram/dose oral powder (Miralax) ibuprofen 200 mg tablet (Advil) 200 mg PO Q6H PRN 09/21/21 11/17/21 History levetiracetam 100 mg/mL oral 500 mg PO BID 09/21/21 11/17/21 History solution pantoprazole 40 mg tablet,delayed 40 mg PO QAM 09/21/21 11/17/21 History release famotidine 20 mg tablet 20 mg PO QAM tab 10/05/21 11/17/21 History potassium chloride 10 mEq 20 meq PO BID #360 tab 10/11/21 11/17/21 Rx tablet,extended release furosemide 40 mg tablet 40 mg PO QAM #90 tab 10/19/21 11/17/21 Rx albuterol sulfate 90 mcg/actuation 2 puff INHALATION QID PRN #8.5 g 11/10/21 11/17/21 Rx aerosol inhaler meclizine 12.5 mg tablet 12.5 mg PO Q6H PRN #30 tab 11/10/21 11/17/21 Rx Hospital Bed [facility] ([facility] ea 11/17/21 Rx Bed) Past Med/Surg History Medical History Aortic stenosis Mild aortic stenosis (SUSAN 1.4 cm, mean gradient 15.7 mmHg) per 09/06/18 DSE Asthma Atrial fibrillation Dx 2016; on Eliquis Degenerative joint disease of right knee Diverticulitis Remote hx GERD (gastroesophageal reflux disease) Hiatal hernia Has had discussion for future surgical repair Hypertension Migraine Osteoarthritis Poor historian Rheumatoid arthritis Sciatica 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), on anticonvulsants Temporomandibular joint disorder No locking Vertigo Surgical History History of appendectomy History of arthroplasty of left knee History of blepharoplasty History of cardioversion History of cataract surgery R/L History of cervical discectomy C5-C7 (2008) History of colonoscopy History of esophageal dilatation History of esophagogastroduodenoscopy (EGD) History of tooth extraction History of total hysterectomy with bilateral salpingo-oophorectomy (BSO) History of total left knee replacement (TKR) History of total right knee replacement (TKR) Right TKA (10/08/18): SAB at L3-L4 (x1 attempt) + PNB at [facility] History of vascular access device hx of Right IJ triple lumen central venous cath (2010), since removed S/P cholecystectomy Family History Other Family history non-contributory No family history of adverse response to anesthesia Denies family history of Ovarian cancer Prostate cancer Breast cancer Colorectal cancer Social History Smoking Status: Unknown if ever smoked Second Hand Exposure: No; Do You Dip or Chew Tobacco: No; Hx Alcohol Use: No Hx Substance Use: No Preferred Language: Italian Communication Ability: Effective Visual Impairment: No Limitations Team Facilitator Required: No Beliefs That Will Affect Care: None marital status: Single Current Living Situation: Alone current occupational status: retired Other Information That Helps Us Care for You: No Feels Safe at Home: Yes Safety Concerns: Feels Safe At This Time Assistive Devices: Oxygen - Continuous and Walker Review of Systems Musculoskeletal: + joint pain (+ Right hip) Physical Exam Constitutional: + obese and cooperative; no acute distress Eyes: + anicteric sclerae ENMT: external ear and nose normal, oropharynx normal Neck: normal visual inspection and trachea midline + EJ line on left side Respiratory: normal respiratory effort; no respiratory distress and no cough Auscultation: + diminished lung sounds and + wheezes Cardiovascular: Rate/Rhythm: regular rate and + irregularly irregular Heart Sounds: normal S1, normal S2 and + murmur (systolic ejection) Extremities: + pedal edema (+ 3 bilaterally) Gastrointestinal (Abdomen): normal bowel sounds, soft, nontender, no hepatosplenomegaly Musculoskeletal: Head/Neck/Chest: normocephalic and head atraumatic Skin: no rashes, warm and dry Neurologic: moves all extremities Psychiatric: A+Ox3, euthymic affect Results & Data Results & Data ([facility]) Vital Signs (Past 12 Hours) Vital Signs Temp Pulse Pulse Resp BP BP Pulse Ox 11/18/21 00:00 85 18 175/72 H 96 11/17/21 23:10 91 11/17/21 22:51 82 20 182/75 H 94 11/17/21 20:51 36.6 C 93 H 18 125/87 97 Supervising Physician Co-Signing Physician Notes Attending addendum: I have physically seen this patient, have supervised the medical residents activities, and agree with the H&P unless as otherwise noted. Assessment and Plan: Dyspnea on exertion/atrial fibrillation/aortic stenosis- The patient will be admitted to telemetry for serial cardiac enzymes, serial EKG's, cardiac rhythm monitoring and a 2-D echocardiogram with Dopplers. Pulse ox of 78% recorded with activity At rest patient was 92-96% on room air Aggravating factors include: Acute CHF exacerbation, acute asthma exacerbation From the ED patient received Solu-Medrol 125 mg IV, furosemide 40 mg IV, Nitropaste 1/2 inch and a DuoNeb treatment Continue home fluticasone inhaler, Eliquis and Klor-Con 20 mEq p.o. daily after given a bolus of 40 mEq in the ED Seizure disorder- Continue Lamictal and Keppra Hypokalemia- Potassium 3.0 on admission. As noted above given additional Klor-Con 40 mEq p.o. in ED, continue her usual 20 mEq p.o. daily follow serial BMP Remaining orders and notations as noted Resident Activity Tracking Resident Involvement: Resident Care Provided Care Provided: Adult Hospital Medicine (1) Atrial fibrillation Atrial fibrillation type: chronic Qualified Code(s): I48.2 - Chronic atrial fibrillation (2) GERD (gastroesophageal reflux disease) Esophagitis presence: with esophagitis Qualified Code(s): K21.0 - Gastro- esophageal reflux disease with esophagitis
[2021-11-18] MEDS ORDERED: POTASSIUM CHLORIDE CRTAB 20 MEQ TABCR PO STA ×2 (01:52→09:36)
[2021-11-18] MEDS ORDERED: KETOROLAC TROMETHAMINE 15 MG/ML VIAL IV STA (03:49)
[2021-11-18 04:38] LABS: Appearance Urine Clear (Clear); Bilirubin Urine Negative (Negative); Blood Urine Negative (Negative); Color Urine Yellow; Glucose Urine UA Negative (Negative); Ketones Urine Negative (Negative); Leukocyte Esterase Urine Negative (Negative); Nitrite Urine Negative (Negative); Protein Urine Negative (Negative); Specific Gravity Urine 1.007 (1.000-1.030); Urobilinogen Urine Negative (Negative)
[2021-11-18] MEDS ORDERED: ACETAMINOPHEN 325 MG TAB PO PRN (05:24)
[2021-11-18] MEDS ORDERED: MAGNESIUM HYDROXIDE SUSP 30 ML UDC PO PRN (05:24)
[2021-11-18] MEDS ORDERED: MELATONIN 3 MG TAB PO PRN (05:24)
[2021-11-18] MEDS ORDERED: ONDANSETRON INJ 2 MG/ML 2 ML VIAL IV PRN (05:24)
[2021-11-18] MEDS ORDERED: LORazepam 0.5 MG TAB PO PRN (05:24)
--- NOTE | 2021-11-18 06:59 | XRay Report ---
XR chest 1V portable CLINICAL HISTORY: Dyspnea. COMPARISON STUDY: 07/28/2021 TECHNIQUE: 1 view of the chest FINDINGS: Single frontal view of the chest demonstrates the heart size to again be enlarged. There is mild prom inence of central vascular markings suspicious for mild central vascular congestion. No peripheral in terstitial edema is seen. There is no evidence for pleural effusion. No confluent alveolar opacities are identified. There is no acute osseous pathology. IMPRESSION: Radiographic findings characteristic of mild central vascular congestion. ACT 112: Negative or not required by law. Electronically signed by: Jhonatan Paris M.D. 11/18/2021 6:57 AM
[2021-11-18] MEDS: ALBUT/IPRATROP 3MG/0.5MG NEB 3 ML VIAL NEB SCH ×2 (07:19→15:14)
[2021-11-18 07:23] LABS: BUN Creatinine Ratio 21.7 (10-20); Blood Urea Nitrogen 17 mg/dl (7-18); Calcium 8.8 mg/dl (8.5-10.1); Carbon Dioxide 25 mmol/L (21-32); Chloride 112 mmol/L (98-107); Creatinine Clr Calc Pharmacy 97.9 ml/min; Est GFR (African American) 89.4 ml/min; Est GFR (Non-African American) 77.1 ml/min; Glucose 169 mg/dl (70-99); Iron 24 mcg/dl (35-150); Potassium 3.4 mmol/L (3.5-5.1); Sodium 143 mmol/L (136-145)
[2021-11-18 07:27] LABS: Troponin I < 0.015 ng/ml (0-0.045)
[2021-11-18] MEDS ORDERED: FLUTICASONE FUROATE 100MCG 14 PUFFS/INHALER INH SCH (09:00)
[2021-11-18] MEDS ORDERED: POTASSIUM CHLORIDE CRTAB 20 MEQ TABCR PO SCH (09:00)
[2021-11-18] MEDS ORDERED: DOCUSATE SODIUM 100 MG CAP PO SCH (09:00)
[2021-11-18] MEDS ORDERED: APIXABAN 5 MG TABLET PO SCH (09:00)
[2021-11-18] MEDS ORDERED: levETIRAcetam 500 MG TAB PO SCH (09:00)
[2021-11-18] MEDS ORDERED: POLYETHYLENE (MIRALAX) 17 GM PACK PO SCH (09:00)
[2021-11-18] MEDS ORDERED: MAGNESIUM OXIDE 400 MG TAB PO SCH (09:00)
[2021-11-18] MEDS ORDERED: FUROSEMIDE 40 MG/4 ML VIAL IV SCH (09:00)
[2021-11-18] MEDS ORDERED: lamoTRIgine 100 MG TAB PO SCH (09:00)
[2021-11-18] MEDS ORDERED: PANTOprazole 40 MG TAB PO SCH (09:00)
[2021-11-18] MEDS ORDERED: FAMOTIDINE 20 MG TAB PO SCH (09:00)
[2021-11-18] MEDS ORDERED: GABAPENTIN 300 MG CAP PO SCH (09:00)
--- NOTE | 2021-11-18 12:31 | XCELERA ---
[id number]
[2021-11-18] MEDS ORDERED: KETOROLAC TROMETHAMINE 15 MG/ML VIAL IV ONE (15:37)
[2021-11-18] MEDS ORDERED: KETOROLAC TROMETHAMINE 15 MG/ML VIAL ONE (15:46)
[2021-11-18] MEDS ORDERED: PNEUMOCOCCAL Polysaccharide Vaccine 25mcg/0.5mL vial/Syr IM ONE (16:45)
--- NOTE | 2021-11-18 19:32 | Discharge Summary ---
Date of Service November 18, 2021 Admission HPI Per Admitting Provider Ms. Salmon is a 71 yo woman with a PMHx of asthma, a-fib (on anticoagulation with eliquis), and CHF who came to the [facility] ED for evaluation of dyspnea and chest heaviness. She first noticed the chest heaviness a week ago - and the dyspnea became most pronounced today. When attempting to move furniture in her apartment, she began to hear herself wheezing. She denies any preceding fever/chills, diaphoresis, cough, nausea/vomiting or diarrhea. She endorses a worsening of her chronic b/l lower extremity edema. She does report that she has been sleeping on a recliner - however this is not due to her becoming dyspneic when laying flat. Instead, she has advanced hip OA and has a hard time climbing into and out of her bed. She was supposed to undergo a R hip replacement with Dr. Ward at [facility] - however her procedure was canceled 3 times due to the coronavirus pandemic. She states the progressive hip pain has limited her ability to keep active. When discussing her asthma medication regimen - she said she uses two inhalers: fluticasone for maintenance (takes daily) and albuterol for rescue. She says "one of them has been low lately." She endorses increased use of rescue inhaler this past week. For her CHF, she denies any missed doses of her lasix 40mg daily. When discussing he diet, she says she does not add salt to food. She has eggs + toast for breakfast. For dinner she "lives on salads" - likes to add a variety of vegetables, cold cuts and cubed cheese to them. Uses ranch dressing. She denies any recent canned soup consumption. No salty snacks like chips or pretzels. Social Hx: She is a non-smoker. No etoh. Has home health services arranged - currently trying to get herself a home hospital bed. She received the first two covid 19 vaccines. When EMS arrived at her apartment, she was reportedly wheezing. She was administered a duo-neb treatment and aspirin 324mg. The wheezing improved after the nebulizer. She was afebrile on arrival with a normal HR, BP elevated to 175/72, satting 96% on room air. Her WBC was normal; Hgb was low at 9.2. Liver and kidney function normal. K low at 3.0. Trop undetectable. COVID 19/Flu/RSV neg. BNP 1444. EKG showing atrial fibrillation at [address] segment changes. CXR without lobar consolidation, no pleural effusions; + pulmonary vascular congestion. She was given Lasix 40mg IV, 0.5inch nitropaste, solumedrol 125mg, a duoneb treatment, and 40mg Kcl. Principal Diagnosis Acute on chronic diastolic CHFnow improved Discharge Exam In general she is awake alert oriented pleasant no distress. HEENT normocephalic atraumatic mucous membranes moist. Lungs are overall clear may be the faintest of a rhonchorous mid right otherwise no rales rhonchi or wheezes no accessory muscle use good effort. Skin shows no rashes no pallor or icterus. Mental status is intact. Discharge Data Allergies Allergy/AdvReac Type Severity Reaction Status Date / Time latex Allergy Intermediate Rash, itchy Verified 11/17/21 20:52 adhesive Allergy Mild Itchy Verified 11/17/21 20:52 bacitracin Allergy Unknown Unknown Verified 11/17/21 20:52 [From Neosporin ([id number])] neomycin Allergy Unknown Unknown Verified 11/17/21 20:52 [From Neosporin ([id number])] polymyxin B Allergy Unknown Unknown Verified 11/17/21 20:52 [From Neosporin ([id number])] metoclopramide [From Reglan] AdvReac Intermediate Dyskinetic Verified 11/17/21 20:52 reaction Consultations 11/18/21 00:44 ED Decision to Admit Stat Hospital Course (1) Aortic stenosis: Acute on chronic diastolic CHF predominantly from aortic stenosis, probably a little bit from LVH. More than likely accidental dietary indiscretion with sodium leading to fluid retention leading to exacerbationfortunately improved very quickly. Stable on room air, later nursing walked patient and she did not desaturate/was steady on her feetsafe and stable for home and very much wanting to go home. Discharged home, educated on sodium restriction. No clear need for chronic diuretic at this time given that she has not had recurrences of CHF, and this was more of a one-time occurrence. Close outpatient follow-up next week. Total Time Total Time Spent Total Time Spent (In Minutes): Less than 30 Discharge Plan Discharge Items Patient Disposition: Home - Self-Care Reason For Visit: DYSPNEA Discharge Diagnosis: shortness of breath (CHF) see below Condition on Discharge: Fair Activity: Resume your previous activity Follow-up/Referrals: Josephine Samaniego CRNP [Primary Care Provider] - Addtl Attending Provider Instructions: Congestive heart failure -Your shortness of breath appears to have been due to a "congestive heart failure exacerbation"what this means is that fluid got backed up from your heart into your lungs. Your heart is a little bit stiff, and the aortic valve (the main valve from your left ventricle forward to your body) is a bit tight. When your body has too much fluid in it, the stiff heart combined with a tight valve will create essentially a "bottleneck" where fluid is not really able to get through the left ventricle fast enough. This creates a "traffic jam" where fluid starts to back up in your lungsthis was what was causing you to feel short of breath. Fortunately it was very mild and improved very quickly. It appears quite safe for you to go home -The enormous majority of the time, we see people end up with fluid back up like this from fluid retention caused by sodium in their diet. When our kidney see a little bit of salt, they retain a little bit of water. When our kidney see a lot of salt, they retain a lot of water. Typically, in my experience, people do not often get fluid overloaded from drinking too muchway more often from taking in too much sodium. As we discussed, sodium is hidden in a lot of foods as a flavoring agent or a preservativeand so sometimes it can be very easy to take in more sodium than you would realize. -When/if at all possible, I would recommend you trying to stay at less than 2000 mg of sodium a day. -take an additional lasix (furosemide) again tomorrow (11/19/21) - then go back to your regular regimen -follow up with your PCP next week for a recheck on how you're doing, they'll recheck labs (BMP) in the follow up visit as well Pending Studies at Discharge: No Stand-Alone Forms: My Audio[employer], Smoking Cessation Medications and DC Order Prescriptions: Continued magnesium oxide 400 mg (241.3 mg magnesium) tablet 200 mg PO BID 90 Days Qty: 90 RF: 3 Eliquis 5 mg tablet 5 mg PO QAM Qty: 90 RF: 3 potassium chloride 10 mEq tablet extended release 20 meq PO BID Qty: 360 RF: 3 furosemide 40 mg tablet 40 mg PO QAM Qty: 90 RF: 3 albuterol sulfate 90 mcg/actuation HFA aerosol inhaler 2 puff inhalation QID PRN (Reason: asthma) Qty: 8.5 RF: 0 meclizine 12.5 mg tablet 12.5 mg PO Q6H PRN (Reason: dizziness) Qty: 30 RF: 3 (DME) Hospital Bed Misc See Rx Instructions .Route Qty: 1 RF: 0 lorazepam 0.5 mg tablet 0.5 mg PO BID PRN (Reason: anxiety) Qty: 60 RF: 0 polyethylene glycol 3350 [Miralax] 17 gram/dose powder 17 g PO DAILY RF: 0 famotidine 20 mg tablet 20 mg PO QAM RF: 0 gabapentin 300 mg capsule 300 mg PO BID RF: 0 ibuprofen [Advil] 200 mg Tablet 200 mg PO Q6H PRN (Reason: Pain) RF: 0 levetiracetam 100 mg/mL solution 500 mg PO BID RF: 0 pantoprazole 40 mg tablet,delayed release (DR/EC) 40 mg PO QAM RF: 0 fluticasone furoate 50 mcg/actuation Blister With Device 50 mcg INHALATION DAILY RF: 0 diclofenac sodium 1 % gel 1 ea TOPICAL TID MDD 16 grams RF: 0 acetaminophen [Tylenol] 325 mg Tablet 650 mg PO Q4 PRN (Reason: Pain) RF: 0 ondansetron 4 mg tablet,disintegrating 4 mg translingual Q4 PRN (Reason: Nausea) RF: 0 lamotrigine [Lamictal] 100 mg Tablet 300 mg PO Q12 RF: 0 docusate sodium 100 mg Capsule 100 mg PO BID RF: 0 Discharge Orders: Discharge Order (Routine); Ordered 11/18/21 Ordered By: Cristiano Taylor Admission Data Admit Date/Time: 11/18/21 01:25 Attending Provider: Cristiano Taylor Admit Provider: Chastity Adan Primary Care Provider: Josephine Samaniego Other Providers: Jorge Luis Ferrer Other Interventions: Discharge Summary Assessment (RN) Last Done: 11/18/21 18:00 Coding Level of Care Code 98109 OBS Care - Discharge Diagnoses Aortic stenosis I35.0
--- NOTE | 2021-11-18 20:05 | Discharge Summary ---
Date of Service November 18, 2021 Admission HPI Per Admitting Provider Ms. Salmon is a 71 yo woman with a PMHx of asthma, a-fib (on anticoagulation with eliquis), and CHF who came to the [facility] ED for evaluation of dyspnea and chest heaviness. She first noticed the chest heaviness a week ago - and the dyspnea became most pronounced today. When attempting to move furniture in her apartment, she began to hear herself wheezing. She denies any preceding fever/chills, diaphoresis, cough, nausea/vomiting or diarrhea. She endorses a worsening of her chronic b/l lower extremity edema. She does report that she has been sleeping on a recliner - however this is not due to her becoming dyspneic when laying flat. Instead, she has advanced hip OA and has a hard time climbing into and out of her bed. She was supposed to undergo a R hip replacement with Dr. Ward at [facility] - however her procedure was canceled 3 times due to the coronavirus pandemic. She states the progressive hip pain has limited her ability to keep active. When discussing her asthma medication regimen - she said she uses two inhalers: fluticasone for maintenance (takes daily) and albuterol for rescue. She says "one of them has been low lately." She endorses increased use of rescue inhaler this past week. For her CHF, she denies any missed doses of her lasix 40mg daily. When discussing he diet, she says she does not add salt to food. She has eggs + toast for breakfast. For dinner she "lives on salads" - likes to add a variety of vegetables, cold cuts and cubed cheese to them. Uses ranch dressing. She denies any recent canned soup consumption. No salty snacks like chips or pretzels. Social Hx: She is a non-smoker. No etoh. Has home health services arranged - currently trying to get herself a home hospital bed. She received the first two covid 19 vaccines. When EMS arrived at her apartment, she was reportedly wheezing. She was administered a duo-neb treatment and aspirin 324mg. The wheezing improved after the nebulizer. She was afebrile on arrival with a normal HR, BP elevated to 175/72, satting 96% on room air. Her WBC was normal; Hgb was low at 9.2. Liver and kidney function normal. K low at 3.0. Trop undetectable. COVID 19/Flu/RSV neg. BNP 1444. EKG showing atrial fibrillation at [address] segment changes. CXR without lobar consolidation, no pleural effusions; + pulmonary vascular congestion. She was given Lasix 40mg IV, 0.5inch nitropaste, solumedrol 125mg, a duoneb treatment, and 40mg Kcl. Principal Diagnosis Acute on chronic diastolicCHF (aortic stenosis) Discharge Exam In general she is awake alert oriented pleasant no distress. HEENT normocephalic atraumatic mucous membranes moist. Lungs are overall clear somewhat difficult exam, but no rales rhonchi or wheezes no accessory muscle use good effort. Skin shows no rashes no pallor or icterus. Mental status is intact. Discharge Data Allergies Allergy/AdvReac Type Severity Reaction Status Date / Time latex Allergy Intermediate Rash, itchy Verified 11/17/21 20:52 adhesive Allergy Mild Itchy Verified 11/17/21 20:52 bacitracin Allergy Unknown Unknown Verified 11/17/21 20:52 [From Neosporin ([id number])] neomycin Allergy Unknown Unknown Verified 11/17/21 20:52 [From Neosporin ([id number])] polymyxin B Allergy Unknown Unknown Verified 11/17/21 20:52 [From Neosporin ([id number])] metoclopramide [From Reglan] AdvReac Intermediate Dyskinetic Verified 11/17/21 20:52 reaction Consultations 11/18/21 00:44 ED Decision to Admit Stat Hospital Course (1) Aortic stenosis: Acute on chronic diastolic CHF predominantly from aortic stenosis, probably a little bit from LVH. More than likely accidental dietary in discretion with sodium leading to fluid retention leading to exacerbationfortunately improved very quickly. Educated on sodium restrictiontried to point out that likely the meats, possibly cheeses, and ranch dressing that she is putting on her salads were probably more sodium laden than she realized. She was stable on room air and very much wanted to go homesafe/stable for home. Additional 40 mg of Lasix on top of her usual 40 for tomorrow only, then resume her regular 40 mg daily. Outpatient follow-up with PCP early next week, basic metabolic panel next week. Total Time Total Time Spent Total Time Spent (In Minutes): <30 Discharge Plan Discharge Items Patient Disposition: Home - Self-Care Reason For Visit: DYSPNEA Discharge Diagnosis: shortness of breath (CHF) see below Condition on Discharge: Fair Activity: Resume your previous activity Follow-up/Referrals: Josephine Samaniego CRNP [Primary Care Provider] - Addtl Attending Provider Instructions: Congestive heart failure -Your shortness of breath appears to have been due to a "congestive heart failure exacerbation"what this means is that fluid got backed up from your heart into your lungs. Your heart is a little bit stiff, and the aortic valve (the main valve from your left ventricle forward to your body) is a bit tight. When your body has too much fluid in it, the stiff heart combined with a tight valve will create essentially a "bottleneck" where fluid is not really able to get through the left ventricle fast enough. This creates a "traffic jam" where fluid starts to back up in your lungsthis was what was causing you to feel short of breath. Fortunately it was very mild and improved very quickly. It appears quite safe for you to go home -The enormous majority of the time, we see people end up with fluid back up like this from fluid retention caused by sodium in their diet. When our kidney see a little bit of salt, they retain a little bit of water. When our kidney see a lot of salt, they retain a lot of water. Typically, in my experience, people do not often get fluid overloaded from drinking too muchway more often from taking in too much sodium. As we discussed, sodium is hidden in a lot of foods as a flavoring agent or a preservativeand so sometimes it can be very easy to take in more sodium than you would realize. -When/if at all possible, I would recommend you trying to stay at less than 2000 mg of sodium a day. -take an additional lasix (furosemide) again tomorrow (11/19/21) - then go back to your regular regimen -follow up with your PCP next week for a recheck on how you're doing, they'll recheck labs (BMP) in the follow up visit as well Pending Studies at Discharge: No Stand-Alone Forms: My [employer], Smoking Cessation Medications and DC Order Prescriptions: Continued magnesium oxide 400 mg (241.3 mg magnesium) tablet 200 mg PO BID 90 Days Qty: 90 RF: 3 Eliquis 5 mg tablet 5 mg PO QAM Qty: 90 RF: 3 potassium chloride 10 mEq tablet extended release 20 meq PO BID Qty: 360 RF: 3 furosemide 40 mg tablet 40 mg PO QAM Qty: 90 RF: 3 albuterol sulfate 90 mcg/actuation HFA aerosol inhaler 2 puff inhalation QID PRN (Reason: asthma) Qty: 8.5 RF: 0 meclizine 12.5 mg tablet 12.5 mg PO Q6H PRN (Reason: dizziness) Qty: 30 RF: 3 (DME) Hospital Bed Misc See Rx Instructions .Route Qty: 1 RF: 0 lorazepam 0.5 mg tablet 0.5 mg PO BID PRN (Reason: anxiety) Qty: 60 RF: 0 polyethylene glycol 3350 [Miralax] 17 gram/dose powder 17 g PO DAILY RF: 0 famotidine 20 mg tablet 20 mg PO QAM RF: 0 gabapentin 300 mg capsule 300 mg PO BID RF: 0 ibuprofen [Advil] 200 mg Tablet 200 mg PO Q6H PRN (Reason: Pain) RF: 0 levetiracetam 100 mg/mL solution 500 mg PO BID RF: 0 pantoprazole 40 mg tablet,delayed release (DR/EC) 40 mg PO QAM RF: 0 fluticasone furoate 50 mcg/actuation Blister With Device 50 mcg INHALATION DAILY RF: 0 diclofenac sodium 1 % gel 1 ea TOPICAL TID MDD 16 grams RF: 0 acetaminophen [Tylenol] 325 mg Tablet 650 mg PO Q4 PRN (Reason: Pain) RF: 0 ondansetron 4 mg tablet,disintegrating 4 mg translingual Q4 PRN (Reason: Nausea) RF: 0 lamotrigine [Lamictal] 100 mg Tablet 300 mg PO Q12 RF: 0 docusate sodium 100 mg Capsule 100 mg PO BID RF: 0 Discharge Orders: Discharge Order (Routine); Ordered 11/18/21 Ordered By: Cristiano Taylor Admission Data Admit Date/Time: 11/18/21 01:25 Attending Provider: Cristiano Taylor Admit Provider: Chastity Adan Primary Care Provider: Josephine Samaniego Other Providers: Jorge Luis Ferrer Other Interventions: Discharge Summary Assessment (RN) Last Done: 12/31/21 18:00 Coding Level of Care Code 33051 OBS Care - Discharge Diagnoses Aortic stenosis I35.0
--- NOTE | 2021-11-19 04:19 | Billing Data ---
Date of Service November 19, 2021 Coding Level of Care Code INT OBSERVATION CARE 69M LVL 3
--- NOTE | 2021-11-19 10:40 | Electrocardiogram Report ---
Test Reason : Blood Pressure : / mmHG Vent. Rate : 086 BPM Atrial Rate : 113 BPM P-R Int : 000 ms QRS Dur : 082 ms QT Int : 384 ms P-R-T Axes : 000 029 -29 degrees QTc Int : 459 ms Poor data quality, interpretation may be adversely affected Atrial fibrillation Cannot rule out Anterior infarct , age undetermined Abnormal ECG When compared with ECG of 28-JUL-2021 08:47, Nonspecific T wave abnormality now evident in Inferior leads Nonspecific T wave abnormality now evident in Lateral leads Confirmed by Elvni Ricks ([id number]) on 11/19/2021 10:39:58 AM Referred By: REFERRED SELF Confirmed By:Elvin Ricks
== END 2021-11-18 18:00 | disposition home or self-care (01) ==
LOC: EDINP 20:21 → ED 20:21 → SUATTDRO 11-18 01:25 → EDINP 11-18 05:43

== ENCOUNTER 2024-01-07 14:51 | Inpatient (IN) ==
[2024-01-07] MEDS ORDERED: Patient's HEIGHT &/or WEIGHT Needed SCH (14:56)
--- NOTE | 2024-01-07 14:59 | ED Triage Note ---
Date of Service January 07, 2024 Provider in Triage Author: Angel Xavier History of Present Illness This patient was briefly evaluated while in triage. An abbreviated physical exam was performed. This patient is a 73-year-old Female who presents to the ED for evaluation of open wound behind rightleg. Chronic R hip pain. 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 Pt notes her training technician called the ambulance. Physical Exam GENERAL: 73 year old female. In no acute distress. SKIN: No lesions or rashes. R posterior knee flexor crease erythema. HEART: RRR LUNGS: CTA MUSCULOSKELETAL: No deformities to inspection of the extremities. Chronic LLE edema noted. PSYCH: Patient is pleasant and answers all questions appropriately. Initial orders for labs and / or imaging were placed and patient was placed in the waiting area until a bed is available. Please see further documentation for the full ED course.
--- NOTE | 2024-01-07 18:28 | Emergency Department Note ---
Impression & Plan Ambulatory dysfunction, Pressure ulcer, Acute hypokalemia ED Provider Note HISTORY OF PRESENT ILLNESS: Patient is a 73-year-old female presenting with a wound on her left leg. 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 She has pressure ulcers on her left buttock and left posterior upper leg. Patient lives home alone. No reported fevers. Patient has chronic right hip pain. Denies any chest pain or shortness of breath. Denies abdominal pain. Has not been on any antibiotics recently. Patient reports she is here because the home health worker called 911 ROS: as above PHYSICAL EXAM: Constitutional: Patient appears in no acute distress. HENT: Head: Normocephalic and atraumatic. Eyes: EOMI, PERRL Mouth/Throat: Mucous membranes moist. Neck: Trachea midline. Neck supple. Cardiovascular: RRR, No murmurs, rubs or gallops. Intact distal pulses. Pulmonary/Chest: No respiratory distress. Breath sounds clear and equal bilaterally. No wheezes or rales. Abdominal: Abdomen soft, no tenderness rebound or guarding. Musculoskeletal: No tenderness or deformity noted. Non-pitting edema to bilateral lower extremities extending to knees. Skin: Warm and dry. No rash, erythema, pallor or cyanosis Psychiatric: Appropriate mood and affect for situation. Neurological: Alert and keenly responsive. CN II-XII grossly intact, moving all extremities equally and fully. MDM: - Vitals signs showed tachycardia. - History obtained via patient. Patient presents with left leg wound. She has pressure ulcers to her posterior left leg and reportedly had some foul-smelling and yellow-colored drainage from it today with her home health worker who called 911. No reported fevers. Patient is complaining of chronic pain in her right hip. - Chronic conditions affecting care: RA; GERD; HTN; Afib; CHF; dementia - Differential diagnoses include, but are not limited to: sepsis; cellulitis; UTI; pneumonia; DVT; skin breakdown - Order placed for continuous cardiac monitoring. At this time, monitor showed rate of 78 bpm with normal sinus rhythm, per my interpretation. - External medical records reviewed. PCP note dated 03/21/2023 was reviewed. Patient follows in their clinic for her dementia and CHF. - EKG reviewed by myself showed atrial fibrillation. Rate tachycardic at 119 bpm. QTc 436. No acute ischemic changes - Patient given 0.5 mg IV Dilaudid for her continued complaints of pain. - Laboratory workup interpreted by myself showed leukocytosis (WBC 13.05) with left shift; hypokalemia (K 3.3); normal procalcitonin - Blood cultures obtained. - Patient reportedly has had issues ambulating at home. She lives home alone - Discussion was had with care trainer about patient's case and need for admission - Hospitalist consulted for admission - Patient admitted to [facility] service for further evaluation and management. ASSESSMENT AND PLAN: Diagnosis: ambulatory dysfunction; pressure ulcers; acute hypokalemia Plan: admit Past Med/Surg History Medical History Aortic stenosis Asthma Atrial fibrillation Chronic anemia Degenerative joint disease of right knee Diverticulitis GERD (gastroesophageal reflux disease) Hiatal hernia Hypertension Migraine Osteoarthritis Poor historian Rheumatoid arthritis Sciatica Seizure Temporomandibular joint disorder Vertigo Surgical History History of appendectomy History of arthroplasty of left knee History of blepharoplasty History of cardioversion History of cataract surgery History of cervical discectomy History of colonoscopy History of esophageal dilatation History of esophagogastroduodenoscopy (EGD) History of tooth extraction History of total hysterectomy with bilateral salpingo-oophorectomy (BSO) History of total left knee replacement (TKR) History of total right knee replacement (TKR) History of vascular access device S/P cholecystectomy Family History Other Family history non-contributory No family history of adverse response to anesthesia Denies family history of Ovarian cancer Prostate cancer Breast cancer Colorectal cancer Social History Smoking Status: Never smoker Second Hand Exposure: No; Do You Dip or Chew Tobacco: No; Hx Alcohol Use: No Hx Substance Use: No Preferred Language: Tamazight Communication Ability: Effective Visual Impairment: No Limitations Hearing Ability: Hard of Hearing Mold Sprayer Required: No Beliefs That Will Affect Care: None marital status: Single Current Living Situation: Alone Current Living Situation Comment: lives in 1 floor apartment current occupational status: retired Feels Safe at Home: Yes Assistive Devices: Hospital Bed and Walker Allergies Allergies Allergy/AdvReac Type Severity Reaction Status Date / Time latex Allergy Intermediate Rash, itchy Verified 03/28/23 10:40 adhesive Allergy Mild Itchy Verified 03/28/23 10:40 bacitracin Allergy Unknown Unknown Verified 03/28/23 10:40 [From Neosporin ([id number])] neomycin Allergy Unknown Unknown Verified 03/28/23 10:40 [From Neosporin ([id number]-sam-[id number])] polymyxin B Allergy Unknown Unknown Verified 03/28/23 10:40 [From Neosporin ([id number]-uvw-aakcv)] metoclopramide [From Reglan] AdvReac Intermediate Dyskinetic Verified 03/28/23 10:40 reaction Home Meds Home Medications Medication Instructions Recorded Confirmed acetaminophen 325 mg tablet 650 mg PO Q4 PRN Pain 08/11/21 01/07/24 (Tylenol) docusate sodium 100 mg capsule 100 mg PO BID 08/11/21 01/07/24 polyethylene glycol 3350 17 17 g PO DAILY 09/08/21 01/07/24 gram/dose oral powder (Miralax) famotidine 20 mg tablet 20 mg PO .DAILY AT 8 AM 01/07/24 01/07/24 furosemide 40 mg tablet 40 mg PO .DAILY AT 8 AM 01/07/24 01/07/24 Previous Rx's Medication Instructions Recorded diclofenac sodium 1 % topical gel 1 ea topical TID #100 grams 12/01/21 Hospital Bed Homecare (Hospital #1 ea 12/13/21 Bed) Wheelchair (Manual) #1 ea 12/06/22 walker (Ultra-Light Rollator misc) #1 ea 12/25/22 albuterol sulfate 90 mcg/actuation 2 puff inhalation QID PRN asthma 03/22/23 aerosol inhaler #3 Inhalers apixaban 5 mg tablet (Eliquis) 5 mg PO .COMPLEX #180 tabs 03/22/23 fluticasone propionate 50 1 spray intranasal DAILY #16 grams 03/22/23 mcg/actuation nasal spray,suspension (Flonase Allergy Relief) potassium chloride 10 mEq 20 meq (2 x 10 mEq) PO .COMPLEX 03/22/23 tablet,extended release #360 tabs Results & Data (ED) Vital Signs Vital Signs - 24 hr 02/19/24 14:56 01/07/24 17:57 01/07/24 18:00 Temperature 37.1 C Temperature Source Temporal Artery Scan Pulse Rate 130 H 108 H Pulse Rate [Apical] 75 Pulse Rhythm [Apical] Regular Pulse Strength [Apical] Normal Respiratory Rate 20 22 Respiratory Effort / Characteristics Non-Labored Non-Labored Spontaneous Respiratory Depth Normal Normal Respiratory Pattern Regular Regular Blood Pressure 149/94 H Blood Pressure [Left Arm] 129/107 H Blood Pressure Mean 112 Blood Pressure Mean [Left Arm] 114 Blood Pressure Position [Left Arm] Sitting Pulse Oximetry 97 94 Oxygen Delivery Method Room Air Room Air Sepsis Recent Fever Within 48 Hours No Sepsis New/Unexplained Change in Mental Status No Sepsis Action Taken by Nursing No Action Required 01/07/24 20:00 Temperature Temperature Source Pulse Rate Pulse Rate [Apical] 78 Pulse Rhythm [Apical] Pulse Strength [Apical] Respiratory Rate 20 Respiratory Effort / Characteristics Non-Labored Spontaneous Respiratory Depth Normal Respiratory Pattern Regular Blood Pressure Blood Pressure [Left Arm] 135/70 Blood Pressure Mean Blood Pressure Mean [Left Arm] 91 Blood Pressure Position [Left Arm] Pulse Oximetry 96 Oxygen Delivery Method Room Air Sepsis Recent Fever Within 48 Hours Sepsis New/Unexplained Change in Mental Status Sepsis Action Taken by Nursing Laboratory Data 01/07/24 18:20 01/07/24 18:20 Lab Results 01/07/24 Range/Units 18:20 WBC 13.05 H (4.8-10.8) K/ul RBC 4.75 (4.20-5.40) M/uL Hgb 12.8 (12.0-16.0) g/dl Hct 38.4 (37.0-47.0) % MCV 80.8 (80.0-100.0) fL MCH 26.9 (25.0-34.0) pg MCHC 33.3 (32.0-36.0) g/dL RDW Std Deviation 42.7 (36.4-46.3) fL RDW Coeff of Lucio 14.6 H (11.5-14.5) % Plt Count 207 (130-400) K/uL MPV 10.9 (9.4-12.4) fL Immature Gran % (Auto) 0.4 % Neut % (Auto) 83.4 % Lymph % (Auto) 7.5 % [place] % (Auto) 8.0 % Eos % (Auto) 0.4 % Baso % (Auto) 0.3 % Neut # (Auto) 10.89 H (1.40-6.50) K/uL Lymph # (Auto) 0.98 L (1.20-3.40) K/uL [place] # (Auto) 1.04 H (0.11-0.59) K/uL Eos # (Auto) 0.05 (0.00-0.50) K/uL Baso # (Auto) 0.04 (0.00-0.20) K/uL Immature Gran # (Auto) 0.05 (0.01-0.20) K/uL Sodium 137 (136-145) mmol/L Potassium 3.3 L (3.5-5.1) mmol/L Chloride 102 (98-107) mmol/L Carbon Dioxide 25 (21-32) mmol/L Anion Gap 10 (3-11) BUN 10 (6-23) mg/dl Creatinine 0.81 (0.6-1.2) mg/dl Est Cr Clr Drug Dosing Not Reportable Est GFR ( Amer) 82.9 ml/min Est GFR (Non-Af Amer) 71.5 ml/min BUN/Creatinine Ratio 12.3 (10-20) Glucose 109 H (70-99(Fasting)) mg/dl Calcium 9.4 (8.6-10.3) mg/dl Total Bilirubin 1.8 H (0.2-1.0) mg/dl AST 20 (13-39) U/L ALT 17 (7-52) U/L Alkaline Phosphatase 73 (34-104) U/L Total Protein 7.8 (6.0-8.3) gm/dl Albumin 3.8 (3.4-5.0) gm/dl Globulin 4.0 (2.5-4.0) gm/dl Albumin/Globulin Ratio 1.0 (0.9-2) Procalcitonin 0.20 (0-0.5) ng/ml Discharge Plan Visit Data Chief Complaint: Wound ED Provider: Aleja Rodriguez Discharge Problem: Ambulatory dysfunction, Pressure ulcer, Acute hypokalemia Forms Stand Alone Forms: My [facility] Prescriptions Prescriptions: No Action diclofenac sodium 1 % gel 1 ea TOPICAL TID MDD 16 grams Qty: 100 5RF Rx Instructions: apply to single joint (DME) Wheelchair (Manual) Device See Rx Instructions .Route Qty: 1 0RF Rx Instructions: please size accordingly (DME) Ultra-Light Rollator Misc See Rx Instructions .Route Qty: 1 0RF Rx Instructions: As directed albuterol sulfate 90 mcg/actuation HFA aerosol inhaler 2 puff inhalation QID PRN (Reason: asthma) Qty: 3 3RF fluticasone propionate [Flonase Allergy Relief] 50 mcg/actuation spray,suspension 1 spray intranasal DAILY Qty: 16 5RF Rx Instructions: administer into each nostril Eliquis 5 mg tablet 5 mg PO .COMPLEX Qty: 180 3RF Rx Instructions: 5 mg orally 8am and 8pm ; potassium chloride 10 mEq tablet extended release 20 meq PO .COMPLEX Qty: 360 3RF Rx Instructions: 20 mEq orally 8am and 8pm ; polyethylene glycol 3350 [Miralax] 17 gram/dose powder 17 g PO DAILY (DME) [facility] See Rx Instructions .Route Qty: 1 0RF Rx Instructions: [facility] BED FOR PAIN MANAGEMENT AND POSITIONING. LENGTH OF NEED: 99 acetaminophen [Tylenol] 325 mg Tablet 650 mg PO Q4 PRN (Reason: Pain) docusate sodium 100 mg Capsule 100 mg PO BID furosemide 40 mg tablet 40 mg PO .DAILY AT 8 AM famotidine 20 mg tablet 20 mg PO .DAILY AT 8 AM Referrals Referrals: PCP,NO [Primary Care Provider] -
[2024-01-07 18:38] LABS: Basophils # (auto) 0.04 K/uL (0.00-0.20); Basophils % (auto) 0.3 %; Eosinophils # (auto) 0.05 K/uL (0.00-0.50); Eosinophils % (auto) 0.4 %; Hematocrit (blood only) 38.4 % (37.0-47.0); Hemoglobin 12.8 g/dl (12.0-16.0); Immature Granulocytes # (auto) 0.05 K/uL (0.01-0.20); Immature Granulocytes % (auto) 0.4 %; Lymphocytes # (auto) 0.98 K/uL (1.20-3.40); Lymphocytes % (auto) 7.5 %; Mean Corpuscular Hemoglobin 26.9 pg (25.0-34.0); Mean Corpuscular Hgb Conc 33.3 g/dL (32.0-36.0); Mean Corpuscular Volume 80.8 fL (80.0-100.0); Mean Platelet Volume 10.9 fL (9.4-12.4); Monocytes # (auto) 1.04 K/uL (0.11-0.59); Neutrophils # (auto) 10.89 K/uL (1.40-6.50); Neutrophils % (auto) 83.4 %; Platelet Count 207 K/uL (130-400); RDW Coefficient of Variation 14.6 % (11.5-14.5); RDW Standard Deviation 42.7 fL (36.4-46.3); Red Blood Count 4.75 M/uL (4.20-5.40); White Blood Count 13.05 K/ul (4.8-10.8)
[2024-01-07 18:52] LABS: Alanine Aminotransferase 17 U/L (7-52); Albumin Level 3.8 gm/dl (3.4-5.0); Alkaline Phosphatase 73 U/L (34-104); Anion Gap 10 (3-11); Aspartate Aminotransferase 20 U/L (13-39); BUN Creatinine Ratio 12.3 (10-20); Bilirubin,Total 1.8 mg/dl (0.2-1.0); Blood Urea Nitrogen 10 mg/dl (6-23); Calcium 9.4 mg/dl (8.6-10.3); Carbon Dioxide 25 mmol/L (21-32); Chloride 102 mmol/L (98-107); Est GFR (African American) 82.9 ml/min; Est GFR (Non-African American) 71.5 ml/min; Glucose 109 mg/dl (70-99(Fasting)); Potassium 3.3 mmol/L (3.5-5.1); Sodium 137 mmol/L (136-145); Total Protein 7.8 gm/dl (6.0-8.3)
--- NOTE | 2024-01-07 20:26 | History & Physical Report ---
Date of Service January 07, 2024 Assessment & Plan (1) Failure to thrive in adult: Plan: -Admit to med/tele -Currently hemodynamically stable and with HR in the high 90's to low 100's -Presented to the ED via EMS; was reported by ED staff that a home health caregiver called 911 after noting her LE wounds -It does not appear that the patient has been able to care for herself and has some component of cognitive decline/dementia -We will place PT/OT consults and consults management for assistance as she will likely need placement on discharge -Fall/aspiration precautions -Continue home eliquis for DVT PPX -NPO until RUQ US is obtained -AM CBC, CMP, mag, PT/INR (2) Pressure ulcer: Plan: -Patient with multiple, chronic-appearing pressure ulcers on the posterior left thigh and sacrum -They do not appear infected on exam -Will place wound care nurse consult -Turn and position q2h (3) Atrial fibrillation: Plan: -Patient initially presented in afib with RVR in the 120-130's -She remained hemodynamically stable -HR is currently in the low 100's on admission -She has a known hx of afib -Potassium noted to be 3.3 -Will obtain mag level as well -Continue home Eliquis -Will correct her electrolyte abnormalities and give a 500 mL LR bolus -Continue to monitor on tele -Does not appear to be on rate or rhythm controlling medications per the update home med rec, this will need to be clarified in the am -Will treat medically overnight if needed (4) Hip pain, right: Plan: -Patient expresses severe right hip pain -No trauma noted on exam -Appears to be chronic but will obtain xray of the BL hips and pelvis as she is a poor historian -PRN tylenol and lidocaine patch for now -Fall precuations -PT/OT (5) Bilateral leg edema: Plan: -Patient with significant BL LE edema -Appears consistent with lymphedema but patient is poor historian so unsure of chronicity -Unsure if patient has been taking her home Eliquis -Will obtain BL LE venous Doppler on admission to monitor for DVT (6) Acute hypokalemia: Plan: -3.3 today -Will add on mag level -Will give 3 bags of 10 meq IV KCL on admission -Will hold PO KCL until her RUQ US is obtained -Continue to monitor on tele -Will follow mag level ordered on admission -Will obtain RUQ US on admission (7) Elevated bilirubin: Plan: -Total bili elevated at 1.8 -Patient is without scleral icterus and jaundice -Will complain of abdominal pain with palpation at times but then deny it on re-examination -Could be due to dehydration -Will add on direct bili and obtain (8) Dementia: Plan: -Last PCP note listed concerns for dementia -I agree that the patient likely has a component of dementia as she frequently repeats herself and has poor short-term memory -No focal neuro defects on exam -Fall/aspiration precautions ordered (9) Chronic obstructive pulmonary disease: Plan: -Stable on RA with clear lung sounds -Will obtain CXR on admission for baseline -Will start incentive spirometry -Will hold prn albuterol for now as she has not been wheezing and her HR has been elevated -Continue to monitor (10) Congestive heart failure: Plan: -Appears mildly dehydrated on exam -Will give 500 mL LR bolus on exam -Monitor intake/output and volume status moving forward -Hold home lasix for now, unsure if she has been taking this (11) Seizure disorder: Plan: -She has a reported hx of seizure disorder -Per review of her last PCP note, she did not have a recent hx of seizures and has not been on antiepileptic medications -No seizures since ED arrival -Monitor for now (12) Hypertension: Plan: -Stable -Monitor off antihypertensives Plan The patient was discussed with Dr. Ferrer at the time of the admission History of Present Illness Chief Complaint: Right LE wound Primary Care Provider: NO PCP Andriy is a 73-year-old female with a history of Atrial Fibrillation (On Eliquis), HFpEF, Asthma, Hypertension, GERD, Rheumatoid Arthritis, Seizure Disorder, Obesity, Anemia, and dementia who presented to the [facility] ED on 01/07/24 after home health workers noticed a wound on her RLE. She was initially noted to be in afib RVR with HR in the 120's but was otherwise stable. Labs were significant for a leukocytosis of 13 with neutrophil predominance of 10, lymphocyte count of 0.98, potassium of 3.2, and total bili of 1.8. Prior to admission the patient was given one dose of Dilaudid. At the time of the exam the patient was lying in bed and in mild distress due to pain. History is difficult to obtain as the patient often repeats herself and is focused on her chronic right hip pain. She confirms that her home healthcare worker was concerned for her LE wounds. She tells me she lives alone and her closest family is her Brother who lives in [place]. When asked, she denies headache, chest pain, SOB, nausea, vomiting, abdominal pain, dysuria, hematuria, diarrhea, and recent falls. She states that she was supposed to have her right hip replaced but this surgery was canceled "when that virus started". She was unable to tell me the month and thought the year was 2019. Per review of her last PCP note on 03/21/23 she was brought in by her mental health peer support due to right hip pain. There were significant concerns for cognitive decline and possible dementia. They explain that she has limited social support due to strained relationships with family. She was listed as very non-compliant with medications and healthcare in general. I attempted to call her Friend/emergency contact Betito Harding ([phone]), but there was no answer. On admission we will list her code status as Full Code as this was what she has previously listed as and we have been unable to reach her emergency contact. Would recommend re-addressing code status during her admission when her POA can be reached. Please refer to Dr. Ferrer's attestation for any changes to the treatment plan Allergies Allergy/AdvReac Type Severity Reaction Status Date / Time latex Allergy Intermediate Rash, itchy Verified 03/28/23 10:40 adhesive Allergy Mild Itchy Verified 03/28/23 10:40 bacitracin Allergy Unknown Unknown Verified 03/28/23 10:40 [From Neosporin ([id number])] neomycin Allergy Unknown Unknown Verified 03/28/23 10:40 [From Neosporin ([id number])] polymyxin B Allergy Unknown Unknown Verified 03/28/23 10:40 [From Neosporin ([id number])] metoclopramide [From Reglan] AdvReac Intermediate Dyskinetic Verified 03/28/23 10:40 reaction Home Medications Medication Instructions Recorded Confirmed Type acetaminophen 325 mg tablet 650 mg PO Q4 PRN Pain 08/11/21 01/07/24 History (Tylenol) docusate sodium 100 mg capsule 100 mg PO BID 08/11/21 01/07/24 History polyethylene glycol 3350 17 17 g PO DAILY 09/08/21 01/07/24 History gram/dose oral powder (Miralax) diclofenac sodium 1 % topical gel 1 ea topical TID #100 grams 12/01/21 01/07/24 Rx Hospital Bed Homecare (Hospital #1 ea 12/13/21 01/07/24 Rx Bed) Wheelchair (Manual) #1 ea 12/06/22 01/07/24 Rx walker (Ultra-Light Rollator misc) #1 ea 12/25/22 01/07/24 Rx albuterol sulfate 90 mcg/actuation 2 puff inhalation QID PRN asthma 03/22/23 01/07/24 Rx aerosol inhaler #3 Inhalers apixaban 5 mg tablet (Eliquis) 5 mg PO .COMPLEX #180 tabs 03/22/23 01/07/24 Rx fluticasone propionate 50 1 spray intranasal DAILY #16 grams 03/22/23 01/07/24 Rx mcg/actuation nasal spray,suspension (Flonase Allergy Relief) potassium chloride 10 mEq 20 meq (2 x 10 mEq) PO .COMPLEX 03/22/23 01/07/24 Rx tablet,extended release #360 tabs famotidine 20 mg tablet 20 mg PO .DAILY AT 8 AM 01/07/24 01/07/24 History furosemide 40 mg tablet 40 mg PO .DAILY AT 8 AM 01/07/24 01/07/24 History Past Med/Surg History Medical History Aortic stenosis Asthma Atrial fibrillation Chronic anemia Degenerative joint disease of right knee Diverticulitis GERD (gastroesophageal reflux disease) Hiatal hernia Hypertension Migraine Osteoarthritis Poor historian Rheumatoid arthritis Sciatica Seizure Temporomandibular joint disorder Vertigo Surgical History History of appendectomy History of arthroplasty of left knee History of blepharoplasty History of cardioversion History of cataract surgery History of cervical discectomy History of colonoscopy History of esophageal dilatation History of esophagogastroduodenoscopy (EGD) History of tooth extraction History of total hysterectomy with bilateral salpingo-oophorectomy (BSO) History of total left knee replacement (TKR) History of total right knee replacement (TKR) History of vascular access device S/P cholecystectomy Family History Other Family history non-contributory No family history of adverse response to anesthesia Denies family history of Ovarian cancer Prostate cancer Breast cancer Colorectal cancer Social History Smoking Status: Never smoker Second Hand Exposure: No; Do You Dip or Chew Tobacco: No; Hx Alcohol Use: No Hx Substance Use: No Preferred Language: Guatemalan Communication Ability: Effective Visual Impairment: No Limitations Hearing Ability: Hard of Hearing Eyeglass Inspector Required: No Beliefs That Will Affect Care: None marital status: Single Current Living Situation: Alone Current Living Situation Comment: lives in 1 floor apartment current occupational status: retired Feels Safe at Home: Yes Assistive Devices: Hospital Bed and Walker Physical Exam Physical Exam: Physical Exam: General: In mild distress due to hip pain, stated age, poor hygiene HEENT: Normocephalic, atraumatic, no scleral icterus, pupils around round, symmetrical, and reactive to light, moist mucus membranes, trachea midline, no thyromegaly Chest/Pulm: No respiratory distress, symmetrical chest expansion, clear breath sounds throughout Cardiac: irregular rate and rhythm, systolic murmur noted Abdomen: Negative for ascites and bruising, previous central abdominal scars noted without signs of dehiscence, normoactive bowel sounds, soft, non-tender to palpation throughout Musculoskeletal: Patient without acute trauma on exam of the hips, she is tender to palpation over the right hip but is able to actively flex both hip with significant pain int he right hip Extremities: significant lymphedema noted in the LE's with symmetrical erythema Skin: Patient with chronic pressure ulcers on the posterior left thigh and sacrum without signs of drainage or infection Neuro: Alert and oriented to person and place only, no focal defects, no tremors noted Psych: mild distress due to right hip pain, frequently repeats the same phrases, intermittently confused Results & Data Results & Data Vital Signs (Past 12 Hours) Vital Signs Temp Pulse Pulse Resp BP BP Pulse Ox 01/07/24 20:00 78 20 135/70 96 01/07/24 18:00 75 22 129/107 H 94 01/07/24 17:57 108 H 02/19/24 14:56 37.1 C 130 H 20 149/94 H 97 O2 Del Method 01/07/24 20:00 Room Air 01/07/24 18:00 Room Air 01/07/24 17:57 01/07/24 14:56 Room Air Laboratory Results Abnormal lab results 01/07/24 Range/Units 18:20 WBC 13.05 H (4.8-10.8) K/ul RDW Coeff of Lucio 14.6 H (11.5-14.5) % Neut # (Auto) 10.89 H (1.40-6.50) K/uL Lymph # (Auto) 0.98 L (1.20-3.40) K/uL [place] # (Auto) 1.04 H (0.11-0.59) K/uL Potassium 3.3 L (3.5-5.1) mmol/L Glucose 109 H (70-99(Fasting)) mg/dl Total Bilirubin 1.8 H (0.2-1.0) mg/dl ECG Additional Comments: Atrial fibrillation with rapid ventricular response Nonspecific ST and T wave abnormality Abnormal ECG When compared with ECG of 05-FEB-2023 02:33, Nonspecific T wave abnormality now evident in Inferior leads Nonspecific T wave abnormality, improved in Anterolateral leads Code Status & VTE Plan Code Status Full code VTE Prophylaxis Plan VTE Prophylaxis will be ordered: Yes Supervising Physician Co-Signing Physician Notes Attending addendum: I have physically seen this patient, have supervised the BRENDA's activities, and agree with the H&P unless as otherwise noted. Assessment and Plan: Right lower extremity DVT/extensive as noted on Doppler this evening- Patient has been on Eliquis for atrial fibrillation Stop Eliquis Place on heparin drip standard dosing with bolus per protocol May convert to Lovenox subcu on a long-term basis Due to shortness of breath, patient will get a CTA chest PE protocol Atrial fibrillation with RVR/history of atrial fibrillation- Changing Eliquis to heparin IV as noted above Potassium 3.3 will be optimized with IV replacement Magnesium level 1.9 on admission LR 500 mill bolus is noted Skin wounds- Consulted wound care Pain management- Tylenol 1 g IV every 8 hours as needed for pain or fever Morphine sulfate 2 mg IV every 6 hours as needed for moderate pain Dilaudid 0.5 mg IV every 6 hours as needed for severe pain Lidoderm patch Consult social service agency director PG Care Time/CCT Total # of Minutes Spent Total Time Spent with Patient: Total time spent is greater than 50% in coordination of care (as documented) at patient's floor/unit and/or counseling patient: Coding [place] [address] INT INP/OBS CARE 3/75MIN Patient Type Established Medical Decision Making High Complexity Diagnoses Failure to thrive in adult R62.7 Pressure ulcer L89.90 Chronic atrial fibrillation I48.2 Atrial fibrillation type: chronic Hip pain, right M25.551 Bilateral leg edema R60.0 Acute hypokalemia E87.6 Elevated bilirubin R17 Dementia F03.90 Chronic obstructive pulmonary disease, unspecified COPD type J44.9 COPD type: unspecified COPD Congestive heart failure I50.9 Seizure disorder G40.909 Essential hypertension I10 Hypertension type: essential hypertension (3) Atrial fibrillation Atrial fibrillation type: chronic Qualified Code(s): I48.2 - Chronic atrial fibrillation (9) Chronic obstructive pulmonary disease COPD type: unspecified COPD Qualified Code(s): J44.9 - Chronic obstructive pulmonary disease, unspecified (12) Hypertension Hypertension type: essential hypertension Qualified Code(s): I10 - Essential (primary) hypertension
[2024-01-07] MEDS: POTASSIUM CHLORIDE / WTR 10 MEQ/100 ML PLCT IV SCH (21:22)
[2024-01-07] MEDS: LIDOCAINE 5% 1 PATCH TD STA (21:22)
[2024-01-07] MEDS: HYDROmorphone INJ 0.5 MG/0.5 ML SYR IV STA (21:22)
[2024-01-07] MEDS: ACETAMINOPHEN 1,000 MG/100 ML VIAL IV STA (21:22)
[2024-01-07 21:39] LABS: Bilirubin Direct 0.5 mg/dl (0-0.2); Magnesium 1.9 mg/dl (1.7-2.4)
[2024-01-07 22:16] LABS: Influenza A virus by PCR Negative (Neg); Influenza B virus by PCR Negative (Neg); RSV by PCR Negative (Neg); SARS CoV2 RNA(COVID-19) Ceph NEGATIVE (Negative)
--- NOTE | 2024-01-08 00:04 | Ultrasound Report ---
Exam(s): US VENOUS BILATERAL LOWER EXTREMITIES EXAM: US Duplex Bilateral Lower Extremities Veins CLINICAL HISTORY: Reason for exam: BL LE swelling. TECHNIQUE: Real-time duplex ultrasound scan of the bilateral lower extremity veins integrating B-mode two-dimensional vascular structure, Doppler spectral analysis, color flow Doppler imaging and compression. COMPARISON: None. FINDINGS: Right deep veins: Absent compressibility with internal echoes and no flow from the proximal right superficial femoral vein to the calf veins consistent with deep venous thrombosis. Right superficial veins: Unremarkable. No thrombus in the visualized right great saphenous vein. Left deep veins: Unremarkable. No DVT in the left common femoral, femoral, proximal deep femoral or popliteal veins. The veins demonstrate normal color flow, are normally compressible, with normal phasic flow and/or augmentation response. Left superficial veins: Unremarkable. No thrombus in the visualized left great saphenous vein. Soft tissues: There is diffuse edema involving the right calf region, limiting adequate visualization of calf vessels. No popliteal cyst. IMPRESSION: 1. Deep venous thrombosis involving the right lower extremity from the proximal right superficial femoral vein into the popliteal vein and calf and left soles. 2. No ultrasonographic evidence of deep venous thrombosis involving the left lower extremity. Communications: Call Doctor Other Electronically signed by: Sosa Pitts MD 01/08/24 00:03 AM
[2024-01-08] MEDS ORDERED: Heparin IV Adult Wt-Based Standard w/ INITIAL Bolus Protocol IV SCH (00:06)
--- NOTE | 2024-01-08 00:17 | Ultrasound Report ---
Exam(s): US LIVER EXAM: US Abdomen Limited CLINICAL HISTORY: Reason for exam: elevated bilirubin with abd pain. TECHNIQUE: Real-time ultrasound of the abdomen with image documentation. COMPARISON: None. FINDINGS: Liver: The liver measures 13.4 cm. There is diffuse fatty infiltration. Gallbladder: Nonvisualized gallbladder consistent with known history of prior cholecystectomy. There is a cystic collection in the gallbladder fossa measuring 4.3 x 2.5 x 3.0 cm surrounded by a wall measuring 7 mm. Common bile duct: The common bile duct measures 7.1 mm. Kidneys: The right kidney is not well visualized. There is no hydronephrosis. A round hypoechoic structure measuring 4.6 x 3.5 x 3.2 cm seen in the upper pole of the right kidney most compatible with a simple cyst. Bowel: Exam is limited due to gas artifact in the bowel and body habitus. IMPRESSION: 1. Limited exam as described. Cystic structure in the gallbladder fossa, exact etiology indeterminate with wall measuring 7 mm, given the context of known prior cholecystectomy. Follow-up with CT or MRI of the upper abdomen recommended a nonacute setting for further characterization. 2. Right upper renal pole simple cyst measuring 4.6 cm. No further follow-up imaging recommended. 3. Diffuse fatty liver. 4. Remainder of the exam unremarkable. Electronically signed by: Sosa Pitts MD 01/08/24 00:16 AM
[2024-01-08] MEDS: OPTIRAY 320 125ml IV ONE (01:18)
[2024-01-08] MEDS: HYDROmorphone INJ 0.5 MG/0.5 ML SYR IV PRN (01:24)
[2024-01-08] MEDS: LACTATED RINGER'S 500 ML IV ONE (01:37)
[2024-01-08] MEDS: HEPARIN SODIUM/DEXTROSE 25,000 UNITS/500 ML BAG IV SCH (01:37)
[2024-01-08] MEDS: HEPARIN SOD (PORCINE) 1000 UNIT/ML IV ONE (01:38)
[2024-01-08] MEDS: LORazepam 0.5 MG in SYRINGE 0.25 ML IV PRN (02:06)
--- NOTE | 2024-01-08 02:17 | CT Scan Report ---
Exam(s): CTA CHEST IV Amt: 70 ml opti 320 EXAM: CT Angiography Chest With Intravenous Contrast CLINICAL HISTORY: Reason for exam: PE. TECHNIQUE: Axial computed tomographic angiography images of the chest with intravenous contrast. CTDI is 42.65 mGy and DLP is 890.56 mGy-cm. Automated exposure control was utilized for the study. A dose lowering technique was utilized adhering to the principles of ALARA. MIP reconstructed images were created and reviewed. COMPARISON: None. FINDINGS: Pulmonary arteries: Multiple filling defects identified within the mid proximal segmental branches of the left upper lobe, left lower lobe and right posterior upper lobe compatible with multiple bilateral pulmonary emboli. Aorta: No acute findings. No thoracic aortic aneurysm. Lungs: Left lower lobe consolidation suggestive of atelectasis versus residual infiltrate. Patchy opacity within the left upper lobe which may indicate pneumonitis. Mild posterior dependent atelectasis involving the right upper and lower lobe. Otherwise normal right lung parenchyma. Pleural space: Mild left-sided pleural effusion. No pneumothorax. Heart: The RV/LV ratio is 0.7 with no evidence of right-sided cardiac strain. Mild to moderate cardiomegaly with coronary artery calcifications. No significant pericardial effusion. Mediastinum: Mild to moderate hiatal hernia. Bones/joints: No acute fracture. No dislocation. Soft tissues: See below. Lymph nodes: Unremarkable. No enlarged lymph nodes. Intraperitoneal space: Upper abdomen reveal several surgical clips in the left upper abdomen. Other findings: Multilevel degenerative disease of the spine. IMPRESSION: 1. Multiple bilateral pulmonary emboli with no evidence of right-sided cardiac strain. 2. Mild left-sided pleural effusion with left lower lobe and left upper lobe pneumonitis versus atelectasis. 3. Mild right-sided atelectasis as described. Communications: Call Doctor Other Electronically signed by: Sosa Pitts MD 01/08/24 02:16 AM
[2024-01-08] MEDS: MoRPHine SULFATE 2 MG/ML CARP IV PRN (03:07)
--- OUTSIDE RECORDS SUMMARY | 2024-01-08 04:22 | External Medical Summary | Continuity of Care Document ---
Author Name Unknown Organization [facility] [address] [place], [place] [address] Address [address] [place] [id number] Care Team Providers Care Outpatient Scheduler Name Role Phone Stanislaw Jarrett Primary Care Physician [phone] Encounter [facility] LOCOVIMALR [id number] Date(s): 07/12/23 - 07/12/23 [facility] [address] [id number] [facility] [address] [address] Encounter Diagnosis Swelling of both lower extremities(Discharge Diagnosis) - 07/12/23 Lymphedema of leg(Discharge Diagnosis) - 07/12/23 Arthritis of both feet(Discharge Diagnosis) - 07/12/23 Discharge Disposition: Home or Self Care Attending Physician: RENITA Meyer Christina L Allergies, Adverse Reactions, Alerts Substance Reaction Severity Status Tape unknown Active Latex itchy,bruising Active Assessment and Plan Extracted from: Title:Orthopaedics Office Visit Note Author:Peewee Ma DPM, Christina L Date:07/12/23 1.Swelling of both lower e xtremities Discussed with patient and caregiver that presented to visit that I do feel she would greatly benefit from orthopedic shoes which were ordered today I am not sure if these would be covered through insurance but I do think would be beneficial to at least call and inquire. I also feel patient would greatly benefit from compression wraps and I provided a consult for the wound care center at [facility] I am unsure if they provide the status service but we will lease inquire and ask if not we will try to find another place that does provide this service. Lastly I recommend at home PT to help with mobility patient is currently a fall risk she is walking with arolling walker and I think PT would be a great benefitespecially given the arthritis in her feet provided PT consult today. Recommend for patient to follow-up in 2 to 3 months. 20-minute initial visit, 5 minutes review, 15 minutes [id number]. 2.Lymphedema of leg 3.Arthritis of both feet Immunizations Given and Recorded Vaccine Date Status Refusal Reason SARS-CoV-2 mRNA (corinna 5y-11y) 09/19/21 Oscar rded SARS-CoV-2 (COVID-19) mRNA BNT-162b2 vax 1 01/12/21 Recorded SARS-CoV-2 (COVID-19) mRNA BNT-162b2 vax 2 12/22/20 Recorded influenza virus vaccine, inactivated 09/15/20 Oscar rded influenza virus vaccine, inactivated 08/29/19 Oscar rded influenza virus vaccine, inactivated 08/14/17 Oscar rded influenza virus vaccine, inactivated 12/31/14 Oscar rded pneumococcal 13-valent vaccine 3 08/29/19 Recorded pneumococcal 23-valent vaccine 4 10/10/18 Recorded pneumococcal 23-valent vaccine 5 12/31/14 Recorded pneumococcal 23-valent vaccine 6 08/12/14 Recorded pneumococcal 23-valent vaccine 7 01/27/14 Recorded tetanus/diphtheria/pertuss, acel (Tdap) 8 04/11/16 Recorded diphtheria/pertussis, whole cell/tetanus 9, 10 04/11/16 Recorded zoster vaccine live 11 03/01/15 Recorded zoster vaccine live 12 07/25/13 Recorded pneumococcal 7-valent vaccine 13 11/21/13 Recorded influenza virus vaccine, H1N1 14 11/17/09 Recorded 1Result Comment: 2023-02-27: Historical information-source unspecified 2Result Comment: 2023-02-27: Historical information-source unspecified 3Result Comment: 2023-02-27: Historical information-source unspecified 4Result Comment: 2023-02-27: Historical information-source unspecified 5Result Comment: 2023-02-27: Historical information-source unspecified 6Result Comment: 2023-02-27: Historical information-source unspecified 7Result Comment: 2023-02-27: Historical information-source unspecified 8Result Comment: 2023-02-27: Historical information-source unspecified 9Result Comment: 2023-02-27: Historical information-source unspecified wrong vaccine 10Result Comment: 2023-02-27: Historical information-source unspecified 11Result Comment: 2023-02-27: Historical information-source unspecified 12Result Comment: 2023-02-27: Historical information-source unspecified 13Result Comment: 2023-02-27: Historical information-source unspecified 14Result Comment: 2023-02-27: Historical information-source unspecified Medications albuterol 0.083% for nebulization Start: 01/08/17 13:27:00 Start Date: 01/08/17 Status: Ordered docusate Start: 06/26/17 14:48:00, 100 mg =, PO, bid Start Date: 06/26/17 Status: Ordered Eliquis Start: 01/08/17 13:26:00 Start Date: 01/08/17 Status: Ordered famotidine 20 mg oral tablet TAKE 1 TABLET BY MOUTH ONCE DAILY Start Date: 08/25/21 Status: Ordered Flonase 50 mcg/inh nasal spray Start: 02/17/16 14:14:00, 2 spray, intranasal, Daily, Disp# 1 each, in each nostril, Pharmacy: [id number] Start Date: 02/17/16 Status: Ordered furosemide 20 mg oral tablet Start: 05/20/15 11:24:00, 1 tab, PO, Daily, Disp# 20 tab, Pharmacy: [id number], 1 tab PO Daily Start Date: 05/20/15 Status: Ordered gabapentin 300 mg oral capsule See Instructions, Disp# 90 cap, Refills: 5, TAKE 1 CAPSULE BY MOUTH THREE TIMES PER DAY, Pharmacy: [facility] Start Date: 06/07/21 Status: Ordered Klor-Con M20 oral tablet, extended release Start: 04/08/15 8:47:00, 1 tab, PO, Daily, Disp# 90 tab, Pharmacy: [id number], 1 tab PO Daily Start Date: 04/08/15 Status: Ordered lamoTRIgine 100 mg oral tablet Start: 08/10/14 13:15:00 Start Date: 08/10/14 Status: Ordered levETIRAcetam 100 mg/mL oral solution take 5 milliliters (1 teaspoonful) by mouth twice a day Start Date: 08/25/21 Status: Ordered LORazepam 0.5 mg oral tablet Start: 08/10/14 13:15:00 Start Date: 08/10/14 Status: Ordered magnesium oxide 420 mg oral tablet Start: 01/08/17 13:28:00 Start Date: 01/08/17 Status: Ordered meclizine 12.5 mg oral tablet take 1 TO 2 tablets by mouth every 6 hours if needed FOR DIZZINESS Start Date: 08/25/21 Status: Ordered ondansetron 4 mg oral tablet Start: 04/08/15 8:45:00, 1 tab, PO, ONCE, Disp# 90 tab, Refills: 3, Pharmacy: [id number], 1tab PO ONCE Start Date: 04/08/15 Status: Ordered pantoprazole 40 mg oral delayed release tablet Start: 04/08/15 8:45:00, 1 tab, PO, Daily, Disp# 90 tab, Pharmacy: [id number], 1 tab PO Daily Start Date: 04/08/15 Status: Ordered Voltaren 1% topical gel Start: 09/29/20 10:51:00 EST, 1 appl, topical, qid, Disp# 100 g, Refills: 5, not to exceed 16 grams/day/single joint of lower extremities not to exceed 32 grams/day, PRN: Pain, Pharmacy: [facility] [place] [address] Start Date: 09/29/20 Stop Date: 03/28/21 Status: Ordered Mental Status 07/12/23 Barriers to Learning one year None evide nt Mandatory Health Literacy Documentation Yes Health Literacy Communication Barriers N ever Primary Language Slovenian Problem List Condition Confirmation Course Effective Dates Status Health Status Informant Osteoarthritis of foot Confirmed Active Arthritis of both feet Confirmed Active Cellulitis and abscess of leg, except foot Confirmed Active Osteoarthritis of foot Confirmed Active Osteoarthritis of left shoulder Confirmed Active Shortness of breath Confirmed Active Fibula fracture Confirmed Active Tibial plateau fracture Confirmed Active Fracture follow-up Confirmed Active GERD (gastroesophageal reflux disease) Confirmed Active Left hand pain Confirmed Active Heart murmur Confirmed Active Left hip pain Confirmed Active Status post right knee replacement Confirmed Active Status post total left knee replacement Confirmed Active Impingement syndrome of left shoulder Confirmed Active Bilateral knee pain Confirmed Active Knee pain, left Confirmed Active Right lumbar radiculopathy Confirmed Active Spondylolisthesis of lumbar region Confirmed Active Lymphedema of leg Confirmed Active Obesity Confirmed Active Primary osteoarthritis of right hip Confirmed Active Knee osteoarthritis Confirmed Active Rheumatic disease Confirmed Active Seizure Confirmed Active S/P orthopedic surgery, follow-up exam Confirmed Active Swelling of both lower extremities Confirmed Active Left leg swelling Confirmed Active Weight disorder Confirmed Active Diagnosis Diagnosis Type Effective Dates Health Status Clinical Service Informant Arthritis of both feet Discharge Diagnosis 07/12/23 Swelling of both lower extremities Discharge Diagnosis 07/12/23 Lymphedema of leg Discharge Diagnosis 07/12/23 Procedures Procedure Date Related Diagnosis Body Site Status CXR - Chest X-ray 1 05/20/15 Compl eted Ultrasound peripheral vascul ar flow study, arterial and venous 2 05/20/15 Com pleted Appendectomy Completed Bilateral cataract extraction Completed Blepharoplasty Completed Cardioversion Completed Cervical fusion syndrome Completed Cholecystectomy Completed Colonoscopy Completed Endoscopy and biopsy of uppe r gastrointestinal tract Completed Esophageal dilator Comple mariah Hiatal hernia with gastroeso phageal reflux disease Completed Lumbar and lumbosacral fusio n by posterior technique Completed Patellar fracture Complet ed Tooth extraction Complete d Total hysterectomy with katarina jeanine of both tubes and ovaries Completed Total knee replacement 3 Completed 1Cardiomegaly and chronic parenchymal changes There is no acute cardiopulmonary abnormality 2Limited exam showing no evidence for deep venous thrombosis in the region of the thigh to the popiteal. nonvisualation of the venous structures of the extreme lower left leg due to soft tissue edematous change 3Bilateral knees. Social History Social History Type Response Smoking Status Never smoked cigaret keysha Sex Female Ortho Outpt Note * RENITA Meyer, Sandy Vaughn: PERFORM Event Display: Ortho Outpt Note Authored Date: [id number] Primary Care Provider MD Kolby, Stanislaw Crow Chief Complaint B/L ankle blisters and sores,, swollen -- can't get shoes on History of Present Illness Patient is a very pleasant 73-year-old female presenting today forinitial evaluation of blisters in her ankles and swelling. PCPRetg Samaniego. Past medical historyright hip arthritis aortic stenosis aortic insufficiency atrial fibrillationasthma hypertension GERD rheumatoid arthritis sciatica seizure disorder obesity anemia cervical spinal stenosis diverticulosis hiatal hernia and congestive heart failure. Lymphedema Surgical historyappendectomy arthroplasty left knee cardioversion cataract cervical discectomyEGD tooth extraction Family historyno pertinent positives. Social historydenies smoking denies alcohol use. Allergiesreviewed includes latex and adhesives. Medicationsreviewed and includes Eliquis Review of Systems Patient on Eliquis Physical Exam Problem focused bilateral feet: Dorsalis pedis pulse very difficult to palpate secondary to significant swelling,posterior tibialpulse again very difficult to palpate secondary to swellingthere is some coolness noted to the distal extremities pedal hair is absent capillary refill time is less than 3 seconds skin turgor seemsappropriate to distal extremities. There is significant swelling of bilateral lower extremitiessecondary to significant lymphedema patient does havecompressionbootshowever I do think that manual application of compressionwould be more helpful the tricky part here as patient does have CHF and I think some of the swelling and lymphedema may be secondary to her CHF would not want to cause fluid overload onto the heart secondary to her CHF. There is some excoriations of the skin and minor abrasions present on bilateral lower extremities clinical photo in chart but no cellulitis. There is significant arthritis of both feet with flatfoot deformity and hammertoe deformity patienthas ongoing pain of both feet. Unable to wear shoes secondary to pain currently wearing slippers. Assessment/Plan 1.Swelling of both lower extremities Discussed with patient and caregiver that presented to visit that I do feel she would greatly benefit from orthopedic shoes which were ordered today I am not sure if these would be covered through insurance but I do think would be beneficial to at least call and inquire. I also feel patient wouldgreatly benefit from compression wraps and I provided a consult for the wound care center at [facility] I am unsure if they provide the status service but we will lease inquire and ask if not we will try to find another place that does provide this service. Lastly I recommend at home PT to help with mobility patient is currently a fall risk she is walking with arolling walker and I think PT would be a great benefitespecially given the arthritis in her feet provided PT consult today. Recommend for patient to follow-up in 2 to 3 months. 20-minute initial visit, 5 minutes review, 15 minutes [id number]. 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 of right hip Rheumatic disease Right lumbar radiculopathy S/P orthopedic surgery, follow-up exam Seizure Shortness of breath Spondylolisthesis of lumbar region Status post right knee replacement Status post total left knee replacement Swelling of both lower extremities Tibial plateau fracture Weight disorder Historical Right knee DJD S/P right knee arthroscopy Procedure/Surgical History Ultrasound peripheral vascular flow study, arterial and venous (05/20/2015)CXR - Chest X-ray (05/20/2015)Lumbar and lumbosacral fusion by posterior techniqueCervical fusion syndromeHiatal hernia with gastroesophageal reflux diseasePatellar fractureBlepharoplastyTotal knee replacementCardioversionEndoscopy and biopsy of upper gastrointestinal tractBilateral cataract extractionTooth extractionEsophageal dilatorColonoscopyCholecystectomyTotal hysterec chris with removal of both tubes and ovariesAppendectomy Medications albuterol(albuterol 0.083% for nebulization) apixaban(Eliquis) diclofenac topical(Voltaren 1% topical gel), 1 appl, topical, qid, PRN, 5 refills docusate, 100 mg, PO, bid famotidine(famotidine 20 mg oral tablet) fluticasone nasal(Flonase 50 mcg/inh nasal spray), 2 spray, intranasal, Daily furosemide(furosemide 20 mg oral tablet), 20 mg= 1 tab, PO, Daily gabapentin(gabapentin 300 mg oral capsule), See Instructions laMOTRIGine(lamoTRIgine 100 mg oral tablet) levETIRAcetam(levETIRAcetam 100 mg/mL oral solution) lorazepam(LORazepam 0.5 mg oral tablet) magnesium oxide(magnesium oxide 420 mg oral tablet) meclizine(meclizine 12.5 mg oral tablet) ondansetron(ondansetron 4 mg oral tablet), 4 mg= 1 tab, PO, ONCE, 3 refills pantoprazole(pantoprazole 40 mg oral delayed release tablet), 40 mg= 1 tab, PO, Daily potassium chloride(Klor-Con M20 oral tablet, extended release), 20 mEq= 1 tab, PO, Daily Allergies Latexitchy,bruising Tapeunknown Social History Smoking Status Never smoked cigarettes Alcohol - No Risk Exercise - Does not exercise Substance Abuse - No Risk Tobacco - No Risk Immunizations Vaccine Date Status SARS-CoV-2 mRNA (tocharissanamanne marien 5y-11y) 09/19/2021 Recorded SARS-CoV-2 (COVID-19) mRNA BNT-162b2 vax 01/12/2021 Recorded Comments : 2023-02-27: Historical information-source unspecified SARS-CoV-2 (COVID-19) mRNA BNT-162b2 vax 12/22/2020 Recorded Comments : 2023-02-27: Historical information-source unspecified influenza virus vaccine, inactivated 09/15/2020 Recorded influenza virus vaccine, inactivated 08/29/2019 Recorded pneumococcal 13-valent vaccine 08/29/2019 Recorded Comments : 2023-02-27: Historical information-source unspecified pneumococcal 23-valent vaccine 10/10/2018 Recorded Comments : 2023-02-27: Historical information-source unspecified influenza virus vaccine, inactivated 08/14/2017 Recorded tetanus/diphtheria/pertuss, acel (Tdap) 04/11/2016 Recorded Comments : 2023-02-27: Historical information-source unspecified zoster vaccine live 03/01/2015 Recorded Comments : 2023-02-27: Historical information-source unspecified influenza virus vaccine, inactivated 12/31/2014 Recorded pneumococcal 23-valent vaccine 12/31/2014 Recorded Comments : 2023-02-27: Historical information-source unspecified pneumococcal 23-valent vaccine 08/12/2014 Recorded Comments : 2023-02-27: Historical information-source unspecified pneumococcal 23-valent vaccine 01/27/2014 Recorded Comments : 2023-02-27: Historical information-source unspecified pneumococcal 7-valent vaccine 11/21/2013 Recorded Comments : 2023-02-27: Historical information-source unspecified zoster vaccine live 07/25/2013 Recorded Comments : 2023-02-27: Historical information-source unspecified influenza virus vaccine, H1N1 11/17/2009 Recorded Comments : 2023-02-27: Historical information-source unspecified Recommendations Health Maintenance Pending(in the next year) OverDue Body Mass Index due02/27/23and every 1year Adult Influenza Vaccine due05/19/23and every 1year Due Adult COVID-19 Vaccination due07/12/23Unknown Frequency Breast Cancer Screening due07/12/23Unknown Frequency Colorectal Cancer Screening due07/12/23and every 10year Hepatitis C Screening due07/12/23One-time only Lipid Screening due07/12/23Unknown Frequency Medicare Annual Wellness Visit due07/12/23and every 1year Osteoporosis Screening due07/12/23One-time only Shingles Vaccine due07/12/23One-time only Satisfied(in the past 1 year) There are no satisfied recommendations within the defined date range Electronic Signature on File CC: Stanislaw Jarrett MD [address] [place] [id number] CC: NIDHI Pfeiffer [address] [id number] * Electronically Reviewed/Signed by: Sandy Meyer DPM Author Signature Dt/Tm:07/12/2023 03:26 PM Division of Sports Medicine CLR Patient Care team information Care Team Personnel Name: HORACIO Badillo, Lillian Pedersen Position: Physician Location Worker - Sports Medicine [place] Member Role: Lifetime Relationship Address: Address: [facility] [address] Name: MD Kolby, Stanislaw Crow Position: Physician Member Role: Primary Care Provider Address: Address: [address] [place] [id number] [place] Care Team Related Persons Name: SUMMER LIN Address: home [address] [place], [place] [phone] Name: JONATHAN KNUTSON Address: home [address] [place] [phone]
--- OUTSIDE RECORDS SUMMARY | 2024-01-08 04:22 | External Medical Summary | Continuity of Care Document ---
Author Name Unknown Organization [facility] [address] [place] [address] [address] [place], [place] [id number] Care Team Providers Care Streetcar Starter Name Role Phone Errol Jarrettsekouphyllisfidelia Tristin Primary Care Physician [phone] [id number] Date(s): 12/28/23 - 12/28/[address] [facility] [address], [address] [place] [address] [phone] Encounter Diagnosis Urinary incontinence(Discharge Diagnosis) - 12/28/23 Respiratory infection(Discharge Diagnosis) - 12/28/23 Discharge Disposition: Home or Self Care Attending Physician: Ronald Leyva DO, Mariana Annette Referring Physician: Ronald Leyva DO, Mariana Annette Allergies, Adverse Reactions, Alerts Substance Reaction Severity Status Latex itchy,bruising Active Tape unknown Active Assessment and Plan Extracted from: Title:Office Visit Note Author:Ronald Leyva DO, Mariana Annette Date:12/28/23 1.Urinary incontinence STATUS:Chronic stable. DATA: GOAL:Maintain stability. PLAN:Rx completed for urinary incontinence supplies . 2.Respiratory infection Acute will treat with Z-rigo, prednisone 20mg daily, tessalon perles for cough continue albuterol PRN to return if not improving or if worsening Immunizations Given and Recorded Vaccine Date Status Refusal Reason SARS-CoV-2 mRNA (tozinameran 5y-11y) 09/19/21 Oscar rded SARS-CoV-2 (COVID-19) mRNA [...] 14Result Comment: 2023-02-27: Historical information-source unspecified Medications Albuterol (Eqv-ProAir HFA) 90 mcg/inh inhalation aerosol Start: 12/28/23 15:31:00 EST, 2 puff, inhaled, q6h, Disp# 18 g, Refills: 3, PRN: shortness of breath, Pharmacy: [id number] Start Date: 12/28/23 Status: Ordered docusate Start: 06/26/17 14:48:00, 100 mg =, PO, bid Start Date: 06/26/17 Status: Ordered Eliquis Start: 01/08/17 13:26:00 Start Date: 01/08/17 Status: Ordered famotidine 20 mg oral tablet TAKE 1 TABLET BY MOUTH ONCE DAILY Start Date: 08/25/21 Status: Ordered Flonase 50 mcg/inh nasal spray Start: 12/28/23 15:31:00 EST, 2 spray, intranasal, Daily, Disp# 16 g, Refills: 3, in each nostril, Pharmacy: [id number] Start Date: 12/28/23 Status: Ordered furosemide 20 mg oral tablet Start: 05/20/15 11:24:00, 1 tab, PO, Daily, Disp# 20 tab, Pharmacy: [id number], 1 tab PO Daily Start Date: 05/20/15 Status: Ordered gabapentin 300 mg oral capsule See Instructions, Disp# 90 cap, Refills: 5, TAKE 1 CAPSULE BY MOUTH THREE TIMES PER DAY, Pharmacy: [facility] Start Date: 06/07/21 Status: Ordered Klor-Con M20 oral tablet, extended release Start: 04/08/15 8:47:00, 1 tab, PO, Daily, Disp# 90 tab, Pharmacy: [facility], 1 tab PO Daily Start Date: 04/08/15 Status: Ordered LORazepam 0.5 mg oral tablet [...] ONCE, Disp# 90 tab, Refills: 3, Pharmacy: [facility], 1tab PO ONCE Start Date: 04/08/15 Status: Ordered pantoprazole 40 mg oral delayed release tablet Start: 04/08/15 8:45:00, 1 tab, PO, Daily, Disp# 90 tab, Pharmacy: [facility], 1 tab PO Daily Start Date: 04/08/15 Status: Ordered predniSONE 20 mg oral tablet Start: 12/28/23 15:29:00 EST, 1 tab, PO, Daily, Disp# 5 tab, Pharmacy: [facility] Start Date: 12/28/23 Stop Date: 01/02/24 Status: Ordered Tessalon Perles 100 mg oral capsule Start: 12/28/23 15:29:00 EST, 2 cap, PO, q8h, Disp# 60 cap, Pharmacy: [id number] Start Date: 12/28/23 Stop Date: 01/07/24 Status: Ordered Voltaren 1% topical gel Start: 09/29/20 10:51:00 EST, 1 appl, topical, qid, Disp# 100 g, Refills: 5, not to exceed 16 grams/day/single joint of lower extremities not to exceed 32 grams/day, PRN: Pain, Pharmacy: [facility] [place] [address] Start Date: 09/29/20 Stop Date: 03/28/21 Status: Ordered Zithromax Z-Rigo 250 mg oral tablet Start: 12/28/23 15:29:00 EST, See Comments, PO, Daily, Disp# 6 tab, 500 mg (2 tabs) on day 1, then 250 mg (1 tab) on days 2-5, Pharmacy: [id number] Start Date: 12/28/23 Status: Ordered Problem List Condition Confirmation Course Effective Dates [...] Confirmed Active Left leg swelling Confirmed Active Urinary incontinence Confirmed Active Weight disorder Confirmed Active Diagnosis Diagnosis Type Effective Dates Health Status Clinical Service Informant Urinary incontinence Discharge Diagnosis 12/28/23 Respiratory infection Discharge Diagnosis 12/28/23 Procedures Procedure Date Related Diagnosis Body Site [...] to soft tissue edematous change 3Bilateral knees. Vital Signs Most recent to oldest [Reference Range]: 1 Height 161 cm (12/28/23 3:08 PM) Patient Weight 105.4 kg (12/28/23 3:08 PM) Body Mass Index 40.66 kg/m2 (12/28/23 3:08 PM) Temperature [36.5-37.9 DegC] 36.3 DegC *LOW* (12/28/23 3:08 PM) Heart Rate 90 bpm (12/28/23 3:08 PM) Respiratory Rate 16 br/min (12/28/23 3:08 PM) Blood Pressure 110/82mmHg (12/28/23 3:08 PM) Cuff Pulse Pressure 28 mmHg (12/28/23 3:08 PM) Social History Social History Type Response Smoking Status Never smoked cigaret keysha Sex Female FCM Outpt Note * Ronald Leyva DO, Mariana Annette: PERFORM Event Display: [facility]CM Outpt Note Authored Date: [id number] Chief Complaint supplies-diapers/pull ups- chucks- sinus drainage- cough/runny nose for last 10 days not getting any better History of Present Illness Patient presents to discuss medical supplies and URI URI - sick for 10 days - sx include productive cough, runny nose, SOB, congestion - using inhalers more often - has been getting mucinex, head acnd cold medicine, cough drops - not improving Needs briefs and chucks for urinary incontinence. USes briefs through the day 4-6x daily, aslo uses washable bed pads and disposable chucks. Physical Exam Vitals & Measurements T:36.3C HR:90(Monitored) RR:16 BP:110/82 SpO2:94% HT:161cm WT:105.4kg WT:105.400kg(Dosing) BMI:40.66 General: _Alert and oriented, No acute distress, uses walker to ambulate HEENT: _ Normocephalic, moist oral mucosa, mild pharyngeal erythema Cardiovascular: _Normal rate, Regular rhythm, No murmur, No gallop. Respiratory: _diffuse wheezing Integumentary: _Warm, Dry, [place]. Assessment/Plan 1.Urinary incontinence STATUS:Chronic stable. DATA: GOAL:Maintain stability. PLAN:Rx completed for urinary incontinence supplies . 2.Respiratory infection Acute will treat with Z-rigo, prednisone 20mg daily, tessalon perles for cough continue albuterol PRN to return if not improving or if worsening Attestation Time spent: Pre-visit planning: _5 Imfd-sb-hilz visit: _20 Post-visit (orders/documentation/coordination of care):5 Total visit time: _30 Problem List/Past Medical History Ongoing Arthritis of [...] of both lower extremities Tibial plateau fracture Urinary incontinence Weight disorder Historical Right knee DJD S/P right knee arthroscopy Procedure/Surgical History Ultrasound peripheral vascular flow study, arterial and venous (05/20/2015)CXR - Chest X-ray (05/20/2015)Lumbar and lumbosacral fusion by posterior techniqueCervical fusion syndromeHiatal hernia with gastroesophageal reflux diseasePatellar fractureBlepharoplastyTotal knee replacementCardioversionEndoscopy and biopsy of upper gastrointestinal tractBilateral cataract extractionTooth extractionEsophageal dilatorColonoscopyCholecystectomyTotal hysterec chris with removal of both tubes and ovariesAppendectomy Medications albuterol(Albuterol (Eqv-ProAir HFA) 90 mcg/inh inhalation aerosol), 2 puff, inhaled, q6h, PRN, 3 refills apixaban(Eliquis) azithromycin(Zithromax Z-Rigo 250 mg oral tablet), See Comments, PO, Daily benzonatate(Tessalon Perles 100 mg oral capsule), 200 mg= 2 cap, PO, q8h diclofenac topical(Voltaren 1% topical gel), 1 appl, topical, qid, PRN, 5 refills docusate, 100 mg, PO, bid famotidine(famotidine 20 mg oral tablet) fluticasone nasal(Flonase 50 mcg/inh nasal spray), 2 spray, intranasal, Daily, 3 refills furosemide(furosemide 20 mg oral tablet), 20 mg= 1 tab, PO, Daily gabapentin(gabapentin 300 mg oral capsule), See Instructions lorazepam(LORazepam 0.5 mg oral tablet) magnesium oxide(magnesium oxide 420 mg oral tablet) meclizine(meclizine 12.5 mg oral tablet) ondansetron(ondansetron 4 mg oral tablet), 4 mg= 1 tab, PO, ONCE, 3 refills pantoprazole(pantoprazole 40 mg oral delayed release tablet), 40 mg= 1 tab, PO, Daily potassium chloride(Klor-Con M20 oral tablet, extended release), 20 mEq= 1 tab, PO, Daily predniSONE(predniSONE 20 mg oral tablet), 20 mg= 1 tab, PO, Daily Allergies Latexitchy,bruising Tapeunknown Social History Smoking Status Never smoked cigarettes Alcohol - No Risk Exercise - Does not exercise Substance Abuse - No Risk Tobacco - No Risk Immunizations Vaccine Date Status SARS-CoV-2 mRNA (corinna 5y-11y) 09/19/2021 Recorded SARS-CoV-2 (COVID-19) mRNA BNT-162b2 [...] Health Maintenance Pending(in the next year) OverDue Adult Influenza Vaccine due05/18/23and every 1year Due Adult COVID-19 Vaccination due12/28/23Unknown Frequency Adult Social Determinants of Health Screening due12/28/23Unknown Frequency Breast Cancer Screening due12/28/23Unknown Frequency Colorectal Cancer Screening due12/28/23and every 10year Hepatitis C Screening due12/28/23One-time only Lipid Screening due12/28/23Unknown Frequency Medicare Annual Wellness Visit due12/28/23and every 1year Osteoporosis Screening due12/28/23One-time only Shingles Vaccine due12/28/23One-time only Satisfied(in the past 1 year) Satisfied Body Mass Index on12/28/23.Satisfied by JEREMIE Castellano Angela Electronic Signature on File Electronically Reviewed/Signed by: Karuna Leyva DO Author Signature Dt/Tm:12/28/2023 04:20 PM Department of Family Medicine [facility] Patient Care team information Care Team Personnel Name: HORACIO Badillo, Lillian Pedersen Position: Physician Nephrology Social Worker - Sports Medicine [place] Member Role: Lifetime Relationship Address: Address: [facility] [address] [place] [address] [place] Name: MD Kolby, Stanislaw Crow Position: Physician Member Role: Primary Care Provider Address: Address: [address] [place] [address] [address] [place] [address] [place] Care Team Related Persons Name: SUMMER LIN Address: home [address] [place], [place] [phone] Name: JONATHAN KNUTSON Address: home [address] [phone]
--- NOTE | 2024-01-08 07:22 | XRay Report ---
XR hips DOLLY 1v w pelvis HISTORY: 73 years-old Female right hip pain . Pain of the pelvis and right hip COMPARISON: 02/27/2022 TECHNIQUE: AP view of the pelvis with 2 views of the right hip FINDINGS: Severe osteoarthritis of the hips. Lumbar spinal fusion hardware. Limited exam secondary to patient b gilbert habitus. No acute fracture, dislocation or acute osseous erosion identified by radiography. A cat heter device projects over the midline pelvis. IMPRESSION: No acute fracture or dislocation identified. ACT 112: Negative or not required by law. The above report was generated using voice recognition software. It may contain grammatical, syntax o r spelling errors. Electronically signed by: Kody Paulino M.D. 01/08/2024 7:20 AM
--- NOTE | 2024-01-08 07:40 | Hospitalist Progress Note ---
Date of Service January 08, 2024 Assessment & Plan (1) VTE (venous thromboembolism): Plan: Pt presented with leg wounds and decline in health found to have RLE DVT and multiple PE's started on therapeutic heparin parenterally reportedly was on home eliquis -Presented to the ED via EMS; was reported by ED staff that a home health caregiver called 911 after noting her LE wounds -It does not appear that the patient has been able to care for herself and has some component of cognitive decline/dementia -We will place PT/OT consults and consults management for assistance as she will likely need placement on discharge (2) Atrial fibrillation: Plan: - hx of afib presented in RVR -Potassium noted to be 3.0 additional repletion is ordered magnesium is felt to be appropriate (3) Pressure ulcer: Plan: -Patient with multiple, chronic-appearing pressure ulcers on the posterior left thigh and sacrum -They do not appear infected on exam -Will place wound care nurse consult -Turn and position q2h (4) Hip pain, right: Plan: -Patient expresses severe right hip pain -X ray eval is without fracture (5) Elevated bilirubin: Plan: -Total bili elevated at 1.8 liver us shows some changes in the gall bladder fossa, but no dialated Hepatic ducts (6) Dementia: Plan: -Last PCP note listed concerns for dementia -No focal neuro defects on exam -Fall/aspiration precautions ordered -directly impacts ability to care for self Admission and Anticipated Discharge Date Admission Date: January 07, 2024 Subjective pt feels slightly improved legs with edema and hip pain afib in better control on monitor Physical Exam Physical Exam: pleasant d/o feeling legs are swollen cardiac is rate controlled and irregular lungs are clear ext with 2+ edema and venous stasis changes with skin breakdown Results & Data Results & Data Vital Signs (Past 12 Hours) Vital Signs Pulse Pulse Resp BP BP Pulse Ox O2 Del Method 01/08/24 05:00 66 16 151/80 H 94 01/08/24 04:01 75 16 125/57 L 93 01/08/24 02:00 69 25 H 118/56 L 94 01/08/24 01:00 70 16 93 01/07/24 23:51 75 01/07/24 22:46 87 20 95 Room Air 01/07/24 20:00 78 20 135/70 96 Room Air Laboratory Results Reviewed CBC reviewed chemistry PG Care Time/CCT Total # of Minutes Spent Total Time Spent with Patient: Total time spent is greater than 50% in coordination of care (as documented) at patient's floor/unit and/or counseling patient: Coding Level of Care Code 43567 SUB INP/OBS CARE 3/50MIN Diagnoses VTE (venous thromboembolism) I82.90 Chronic atrial fibrillation I48.2 Atrial fibrillation type: chronic Pressure ulcer L89.90 Hip pain, right M25.551 Elevated bilirubin R17 Dementia F03.90 (2) Atrial fibrillation Atrial fibrillation type: chronic Qualified Code(s): I48.2 - Chronic atrial fibrillation
--- NOTE | 2024-01-08 07:47 | XRay Report ---
XR chest 1V portable HISTORY: Shortness of breath. COMPARISON: Chest 11/17/2021. FINDINGS: No pneumothorax. The heart remains enlarged. There is mild central pulmonary vascular conge stion without overt edema. Surgical clips within the upper abdomen again noted. Small left pleural ef fusion. Left basilar linear densities favor subsegmental atelectasis. No acute fractures. Cervical sp inal fusion hardware. IMPRESSION: 1. Cardiomegaly with mild congestive change. 2. Small left pleural effusions and left basilar densities favoring subsegmental atelectasis. ACT 112: Negative or not required by law. Electronically signed by: Drew Noyola M.D. 01/08/2024 7:46 AM
[2024-01-08] MEDS: FAMOTIDINE 20 MG TAB PO SCH (08:10)
[2024-01-08] MEDS: ACETAMINOPHEN 1,000 MG/100 ML VIAL IV PRN (08:12)
[2024-01-08 08:28] LABS: Basophils # (auto) 0.05 K/uL (0.00-0.20); Basophils % (auto) 0.5 %; Eosinophils # (auto) 0.08 K/uL (0.00-0.50); Eosinophils % (auto) 0.8 %; Hematocrit (blood only) 35.9 % (37.0-47.0); Immature Granulocytes # (auto) 0.04 K/uL (0.01-0.20); Immature Granulocytes % (auto) 0.4 %; Lymphocytes # (auto) 1.19 K/uL (1.20-3.40); Lymphocytes % (auto) 12.2 %; Mean Corpuscular Hemoglobin 27.1 pg (25.0-34.0); Mean Corpuscular Hgb Conc 33.4 g/dL (32.0-36.0); Mean Platelet Volume 11.4 fL (9.4-12.4); Monocytes # (auto) 0.86 K/uL (0.11-0.59); Monocytes % (auto) 8.8 %; Neutrophils # (auto) 7.56 K/uL (1.40-6.50); Neutrophils % (auto) 77.3 %; Platelet Count 187 K/uL (130-400); RDW Coefficient of Variation 14.6 % (11.5-14.5); RDW Standard Deviation 42.6 fL (36.4-46.3); Red Blood Count 4.43 M/uL (4.20-5.40); White Blood Count 9.78 K/ul (4.8-10.8)
[2024-01-08 08:51] LABS: Albumin Level 3.3 gm/dl (3.4-5.0); BUN Creatinine Ratio 11.8 (10-20); Bilirubin,Total 1.2 mg/dl (0.2-1.0); Calcium 8.6 mg/dl (8.6-10.3); Creatinine Clr Calc Pharmacy 102.5 ml/min; Est GFR (African American) 99.9 ml/min; Est GFR (Non-African American) 86.2 ml/min; Globulin 3.2 gm/dl (2.5-4.0); INR 1.2 (0.9-1.1); Prothrombin Time 12.8 Seconds (9.0-12.0); Total Protein 6.5 gm/dl (6.0-8.3)
[2024-01-08 08:55] LABS: ANTI-Xa, UFH(UnfractionatedHep 0.73 IU/ml (0.3-0.7)
[2024-01-08] MEDS ORDERED: APIXABAN 5 MG TABLET PO SCH (09:00)
--- NOTE | 2024-01-08 11:03 | Electrocardiogram Report ---
Test Reason : Blood Pressure : / mmHG Vent. Rate : 119 BPM Atrial Rate : 000 BPM P-R Int : 000 ms QRS Dur : 080 ms QT Int : 436 ms P-R-T Axes : 000 -18 028 degrees QTc Int : 613 ms Atrial fibrillation with rapid ventricular response Nonspecific ST and T wave abnormality Abnormal ECG When compared with ECG of 05-FEB-2023 02:33, Nonspecific T wave abnormality now evident in Inferior leads Nonspecific T wave abnormality, improved in Anterolateral leads Confirmed by Dawson Davidson ([id number]) on 01/08/2024 11:03:28 AM Referred By: REFERRED SELF Confirmed By:José Miguel Davidson
[2024-01-08 17:17] LABS: ANTI-Xa, UFH(UnfractionatedHep 0.38 IU/ml (0.3-0.7)
[2024-01-08] MEDS: POTASSIUM CHLORIDE / WTR 10 MEQ/100 ML PLCT IV SCH (20:20)
[2024-01-08] MEDS: POTASSIUM CHLORIDE CRTAB 20 MEQ TABCR PO SCH (20:33)
[2024-01-09] MEDS: POTASSIUM CHLORIDE / WTR 10 MEQ/100 ML PLCT IV SCH (00:57)
[2024-01-09 07:01] LABS: Basophils # (auto) 0.07 K/uL (0.00-0.20); Basophils % (auto) 0.8 %; Eosinophils # (auto) 0.14 K/uL (0.00-0.50); Eosinophils % (auto) 1.5 %; Hematocrit (blood only) 36.7 % (37.0-47.0); Hemoglobin 12.1 g/dl (12.0-16.0); Immature Granulocytes # (auto) 0.05 K/uL (0.01-0.20); Immature Granulocytes % (auto) 0.5 %; Lymphocytes % (auto) 10.9 %; Mean Corpuscular Volume 81.9 fL (80.0-100.0); Mean Platelet Volume 11.9 fL (9.4-12.4); Monocytes # (auto) 0.71 K/uL (0.11-0.59); Monocytes % (auto) 7.7 %; Neutrophils % (auto) 78.6 %; Platelet Count 175 K/uL (130-400); RDW Coefficient of Variation 14.7 % (11.5-14.5); RDW Standard Deviation 44.2 fL (36.4-46.3); Red Blood Count 4.48 M/uL (4.20-5.40); White Blood Count 9.17 K/ul (4.8-10.8)
[2024-01-09 07:25] LABS: ANTI-Xa, UFH(UnfractionatedHep 0.58 IU/ml (0.3-0.7); INR 1.1 (0.9-1.1); Prothrombin Time 12.1 Seconds (9.0-12.0)
[2024-01-09 07:26] LABS: Albumin Globulin Ratio 1.1 (0.9-2); Albumin Level 3.3 gm/dl (3.4-5.0); BUN Creatinine Ratio 8.2 (10-20); Bilirubin,Total 0.9 mg/dl (0.2-1.0); Calcium 8.6 mg/dl (8.6-10.3); Creatinine Clr Calc Pharmacy 114.1 ml/min; Est GFR (African American) 103.5 ml/min; Est GFR (Non-African American) 89.3 ml/min; Globulin 3.1 gm/dl (2.5-4.0); Magnesium 1.9 mg/dl (1.7-2.4); Potassium 3.3 mmol/L (3.5-5.1); Total Protein 6.4 gm/dl (6.0-8.3)
[2024-01-09 09:01] LABS: ANTI-Xa, UFH(UnfractionatedHep 0.61 IU/ml (0.3-0.7)
[2024-01-09] MEDS: POTASSIUM CHLORIDE CRTAB 20 MEQ TABCR PO SCH (10:13)
[2024-01-10 07:34] LABS: Basophils # (auto) 0.04 K/uL (0.00-0.20); Basophils % (auto) 0.5 %; Eosinophils # (auto) 0.16 K/uL (0.00-0.50); Eosinophils % (auto) 1.8 %; Hematocrit (blood only) 33.2 % (37.0-47.0); Hemoglobin 11.1 g/dl (12.0-16.0); Immature Granulocytes # (auto) 0.04 K/uL (0.01-0.20); Immature Granulocytes % (auto) 0.5 %; Lymphocytes # (auto) 1.19 K/uL (1.20-3.40); Lymphocytes % (auto) 13.5 %; Mean Corpuscular Hemoglobin 27.4 pg (25.0-34.0); Mean Corpuscular Hgb Conc 33.4 g/dL (32.0-36.0); Mean Platelet Volume 11.2 fL (9.4-12.4); Monocytes # (auto) 0.67 K/uL (0.11-0.59); Monocytes % (auto) 7.6 %; Neutrophils # (auto) 6.71 K/uL (1.40-6.50); Neutrophils % (auto) 76.1 %; Platelet Count 205 K/uL (130-400); RDW Coefficient of Variation 15.1 % (11.5-14.5); RDW Standard Deviation 44.3 fL (36.4-46.3); Red Blood Count 4.05 M/uL (4.20-5.40); White Blood Count 8.81 K/ul (4.8-10.8)
[2024-01-10 07:56] LABS: Albumin Level 3.1 gm/dl (3.4-5.0); BUN Creatinine Ratio 15.6 (10-20); Bilirubin,Total 0.8 mg/dl (0.2-1.0); Calcium 8.5 mg/dl (8.6-10.3); Creatinine Clr Calc Pharmacy 107.1 ml/min; Est GFR (African American) 101.2 ml/min; Est GFR (Non-African American) 87.3 ml/min; Globulin 3.1 gm/dl (2.5-4.0); Magnesium 1.8 mg/dl (1.7-2.4); Potassium 3.6 mmol/L (3.5-5.1); Total Protein 6.2 gm/dl (6.0-8.3)
[2024-01-10 07:59] LABS: ANTI-Xa, UFH(UnfractionatedHep 0.66 IU/ml (0.3-0.7); INR 1.1 (0.9-1.1); Prothrombin Time 12.1 Seconds (9.0-12.0)
--- NOTE | 2024-01-10 09:02 | Hospitalist Progress Note ---
Date of Service January 09, 2024 Assessment & Plan (1) VTE (venous thromboembolism): Plan: Pt presented with leg wounds and decline in function inital concern for metabolic encephalopthay due to infection of legs but found to have RLE DVT and multiple PE's started on therapeutic heparin parenterally reportedly was on home eliquis, seems RX may have been stopped early dec -Presented to the ED via EMS; was reported by ED staff that a home health caregiver called 911 after noting her LE wounds -It does not appear that the patient has been able to care for herself and has some component of cognitive decline/dementia -We will place PT/OT consults and consults management for assistance as she will likely need placement on discharge (2) Atrial fibrillation: Plan: - hx of afib presented in RVR -initial hypokalemia replete (3) Pressure ulcer: Plan: -Patient with multiple, chronic-appearing pressure ulcers on the posterior left thigh and sacrum -They do not appear infected on exam -Will place wound care nurse consult -Turn and position q2h -no antibiotics at present (4) Hip pain, right: Plan: -Patient expresses severe right hip pain -X ray eval is without fracture (5) Elevated bilirubin: Plan: -Total bili elevated at 1.8 ? [place] liver us shows some changes in the gall bladder fossa, but no dilated Hepatic ducts (6) Dementia: Plan: -Last PCP note listed concerns for dementia -No focal neuro defects on exam -Fall/aspiration precautions ordered -directly impacts ability to care for self Admission and Anticipated Discharge Date Admission Date: January 07, 2024 Subjective pt feels somewhat improved, mostly concerned about where she is going to live, tearfuil and depressed in spirit Physical Exam Physical Exam: pleasant d/o feeling legs are still swollen cardiac is rate controlled and irregular lungs are clear ext with 2+ edema and contionues with venous stasis changes with skin breakdown Results & Data Results & Data Vital Signs (Past 12 Hours) Vital Signs Temp Pulse Pulse Resp BP Pulse Ox O2 Del Method 01/10/24 07:55 98.5 F 82 16 125/66 96 Room Air 01/10/24 04:18 98.2 F 81 18 139/77 93 Room Air 01/09/24 23:56 99.0 F 90 18 116/61 93 Room Air 01/09/24 21:59 102 H Laboratory Results reviewed cbc reviewed chemistry PG Care Time/CCT Total # of Minutes Spent Total Time Spent with Patient: Total time spent is greater than 50% in coordination of care (as documented) at patient's floor/unit and/or counseling patient: Coding Level of Care Code 34774 SUB INP/OBS CARE 2/35MIN Diagnoses VTE (venous thromboembolism) I82.90 Chronic atrial fibrillation I48.2 Atrial fibrillation type: chronic Pressure ulcer L89.90 Hip pain, right M25.551 Elevated bilirubin R17 Dementia F03.90 (2) Atrial fibrillation Atrial fibrillation type: chronic Qualified Code(s): I48.2 - Chronic atrial fibrillation
[2024-01-10] MEDS: oxyCODONE HCL IR 5 MG TAB (IMMEDIATE RELEASE) PO PRN (09:52)
[2024-01-10] MEDS: ACETAMINOPHEN 325 MG TAB PO SCH (09:52)
[2024-01-10] MEDS: traMADol HCL 50 MG TABLET PO PRN (13:28)
--- NOTE | 2024-01-10 22:23 | Hospitalist Progress Note ---
Date of Service January 10, 2024 Assessment & Plan (1) VTE (venous thromboembolism): Plan: Pt presented with leg wounds and decline in function inital concern for metabolic encephalopthay due to infection of legs but found to have RLE DVT and multiple PE's started on therapeutic heparin parenterally reportedly was on home eliquis, seems RX may have been stopped early dec -Presented to the ED via EMS; was reported by ED staff that a home health caregiver called 911 after noting her LE wounds -It does not appear that the patient has been able to care for herself and has some component of cognitive decline/dementia -We will place PT/OT consults and consults management for assistance as she will likely need placement on discharge Appears patient is agreeable to rehab on 01/10 Vitals and labs appear stable. (2) Atrial fibrillation: Plan: - hx of afib presented in RVR -initial hypokalemia replete (3) Pressure ulcer: Plan: -Patient with multiple, chronic-appearing pressure ulcers on the posterior left thigh and sacrum -They do not appear infected on exam -Will place wound care nurse consult -Turn and position q2h -no antibiotics at present (4) Hip pain, right: Plan: -Patient expresses severe right hip pain -X ray eval is without fracture (5) Elevated bilirubin: Plan: -Total bili elevated at 1.8 ? [place] liver us shows some changes in the gall bladder fossa, but no dilated Hepatic ducts (6) Dementia: Plan: -Last PCP note listed concerns for dementia -No focal neuro defects on exam -Fall/aspiration precautions ordered -directly impacts ability to care for self Admission and Anticipated Discharge Date Admission Date: January 07, 2024 Subjective 74 yo male reports no new symptoms. She continues to be on room air. Review of Systems Review of Systems: All systems reviewed & are unremarkable except as noted in HPI & below Physical Exam Physical Exam: pleasant d/o feeling legs are still swollen cardiac is rate controlled and irregular lungs are clear ext with 2+ edema and contionues with venous stasis changes with skin breakdown Results & Data Results & Data Vital Signs (Past 12 Hours) Vital Signs Temp Pulse Resp BP BP Pulse Ox O2 Del Method 01/10/24 20:20 36.5 C 92 H 16 154/79 H 93 Room Air 01/10/24 15:48 36.7 C 79 136/56 L 95 Room Air 01/10/24 11:47 36.6 C 106 H 16 105/66 92 Room Air PG Care Time/CCT Total # of Minutes Spent Total Time Spent with Patient: Total time spent is greater than 50% in coordination of care (as documented) at patient's floor/unit and/or counseling patient: Coding Level of Care Code 53727 SUB INP/OBS CARE 2/35MIN Diagnoses VTE (venous thromboembolism) I82.90 Chronic atrial fibrillation I48.2 Atrial fibrillation type: chronic Pressure ulcer L89.90 Hip pain, right M25.551 Elevated bilirubin R17 Dementia F03.90 (2) Atrial fibrillation Atrial fibrillation type: chronic Qualified Code(s): I48.2 - Chronic atrial fibrillation
[2024-01-11 07:49] LABS: Hematocrit (blood only) 36.4 % (37.0-47.0); Hemoglobin 11.8 g/dl (12.0-16.0); Mean Corpuscular Hemoglobin 27.1 pg (25.0-34.0); Mean Corpuscular Hgb Conc 32.4 g/dL (32.0-36.0); Mean Corpuscular Volume 83.7 fL (80.0-100.0); Mean Platelet Volume 11.2 fL (9.4-12.4); Platelet Count 209 K/uL (130-400); RDW Coefficient of Variation 15.5 % (11.5-14.5); RDW Standard Deviation 46.2 fL (36.4-46.3); Red Blood Count 4.35 M/uL (4.20-5.40); White Blood Count 8.63 K/ul (4.8-10.8)
[2024-01-11 08:04] LABS: BUN Creatinine Ratio 13.9 (10-20); Calcium 8.6 mg/dl (8.6-10.3); Creatinine Clr Calc Pharmacy 86.8 ml/min; Est GFR (African American) 84.9 ml/min; Est GFR (Non-African American) 73.2 ml/min; Potassium 3.3 mmol/L (3.5-5.1)
--- NOTE | 2024-01-11 10:06 | Orthopedic Consultation ---
Date of Consultation January 11, 2024 Assessment & Plan (1) Degenerative joint disease of right hip: A consultation order was placed for interventional radiology to perform a fluoroscopic right hip corticosteroid injection. Patient can follow-up at our clinic on an as-needed basis. She has no showed fo r her last 2 visits History of Present Illness Reason for Consultation: Severe right hip pain Requesting Physician: Axel Pate MD Attending Physician: Anotnio Rawls History of Present Illness This 74-year-old female is seen in consultation for severe right hip pain. She was admitted to the hospital due to a right lower extremity DVT as well as a PE. She also has some slight confusion evaluated in the ED but is cognitively alert and oriented x 3 currently. Patient states that her hip has been an issue for many years. She states last time she was evaluated in our clinic was back in 2021. She states she has a difficult time moving around or even transitioning from a seated to a standing position. She wonders if there is a possibility she could have an injection in her right hip to help alleviate her pain. Currently she denies any chest pain. She states she is more short of breath than normal but attributes this to her pulmonary embolism. She states that she is very diminished light sensation to touch from her toes to the mid calf and the right lower extremity. She denies fever, chills, sweats, nausea, vomiting or diarrhea. She currently has a Flores catheter in place. Allergies Allergy/AdvReac Type Severity Reaction Status Date / Time latex Allergy Intermediate Rash, itchy Verified 03/28/23 10:40 adhesive Allergy Mild Itchy Verified 03/28/23 10:40 bacitracin Allergy Unknown Unknown Verified 03/28/23 10:40 [From Neosporin ([id number])] neomycin Allergy Unknown Unknown Verified 03/28/23 10:40 [From Neosporin ([id number])] polymyxin B Allergy Unknown Unknown Verified 03/28/23 10:40 [From Neosporin ([id number])] metoclopramide [From Reglan] AdvReac Intermediate Dyskinetic Verified 03/28/23 10:40 reaction Home Medications Medication Instructions Recorded Confirmed Type acetaminophen 325 mg tablet 650 mg PO Q4 PRN Pain 08/11/21 01/07/24 History (Tylenol) docusate sodium 100 mg capsule 100 mg PO BID 08/11/21 01/07/24 History polyethylene glycol 3350 17 17 g PO DAILY 09/08/21 01/07/24 History gram/dose oral powder (Miralax) diclofenac sodium 1 % topical gel 1 ea topical TID #100 grams 12/01/21 01/07/24 Rx Hospital Bed Homecare (Hospital #1 ea 12/13/21 01/07/24 Rx Bed) Wheelchair (Manual) #1 ea 12/06/22 01/07/24 Rx walker (Ultra-Light Rollator misc) #1 ea 12/25/22 01/07/24 Rx albuterol sulfate 90 mcg/actuation 2 puff inhalation QID PRN asthma 03/22/23 01/07/24 Rx aerosol inhaler #3 Inhalers apixaban 5 mg tablet (Eliquis) 5 mg PO .COMPLEX #180 tabs 03/22/23 01/07/24 Rx fluticasone propionate 50 1 spray intranasal DAILY #16 grams 03/22/23 01/07/24 Rx mcg/actuation nasal spray,suspension (Flonase Allergy Relief) potassium chloride 10 mEq 20 meq (2 x 10 mEq) PO .COMPLEX 03/22/23 01/07/24 Rx tablet,extended release #360 tabs famotidine 20 mg tablet 20 mg PO .DAILY AT 8 AM 01/07/24 01/07/24 History furosemide 40 mg tablet 40 mg PO .DAILY AT 8 AM 01/07/24 01/07/24 History Patient History Medical History Chronic anemia Aortic stenosis Moderate calcific aortic stenosis (MG 22, PV 3.2) per 11/18/21 echo Hiatal hernia Has had discussion for future surgical repair Sciatica Vertigo Hypertension GERD (gastroesophageal reflux disease) Atrial fibrillation Dx 2016; on Eliquis Poor historian Rheumatoid arthritis Osteoarthritis Temporomandibular joint disorder No locking Migraine 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 History of total left knee replacement (TKR) History of esophagogastroduodenoscopy (EGD) History of tooth extraction History of cataract surgery R/L History of arthroplasty of left knee History of appendectomy Family History Other Family history non-contributory No family history of adverse response to anesthesia Denies family history of Ovarian cancer Prostate cancer Breast cancer Colorectal cancer Social History Smoking Status: Former smoker Second Hand Exposure: No; Do You Dip or Chew Tobacco: No; Hx Alcohol Use: No Hx Substance Use: No Preferred Language: Slovenian Communication Ability: Effective Visual Impairment: No Limitations Hearing Ability: Hard of Hearing 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 She does not tolerate logroll testing. I was able to passively flex her hip to about 30 degrees before she experiences severe pain. Light passive internal rotation to 0 degrees and external rotation to 30 degrees causes severe pain. Patient is unable to perform active straight leg raise test. She is able to actively dorsi and plantarflex her foot. She was unable to detect light sensation to touch from the tips of her toes to her mid calf. Her peripheral pulses were palpable but faint. Her capillary refill was slightly greater in 2 seconds Results & Data Vital Signs (Past 12 Hours) Vital Signs Temp Pulse Pulse Resp BP Pulse Ox O2 Del Method 01/11/24 08:28 36.6 C 105 H 18 135/81 93 Room Air 01/11/24 07:26 79 01/11/24 04:00 36.6 C 84 16 149/81 H 97 Room Air 01/11/24 00:00 36.6 C 84 14 132/80 95 Room Air Diagnostic Findings Laboratory Results WBC 8.63 K/ul (4.8-10.8) 01/11/24 07:17 RBC 4.35 M/uL (4.20-5.40) 01/11/24 07:17 Hgb 11.8 g/dl (12.0-16.0) L 01/11/24 07:17 Hct 36.4 % (37.0-47.0) L 01/11/24 07:17 MCV 83.7 fL (80.0-100.0) 01/11/24 07:17 MCH 27.1 pg (25.0-34.0) 01/11/24 07:17 MCHC 32.4 g/dL (32.0-36.0) 01/11/24 07:17 RDW Std Deviation 46.2 fL (36.4-46.3) 01/11/24 07:17 RDW Coeff of Lucio 15.5 % (11.5-14.5) H 01/11/24 07:17 Plt Count 209 K/uL (130-400) 01/11/24 07:17 MPV 11.2 fL (9.4-12.4) 01/11/24 07:17 Immature Gran % (Auto) 0.5 % 01/10/24 07:11 Neut % (Auto) 76.1 % 01/10/24 07:11 Lymph % (Auto) 13.5 % 01/10/24 07:11 [place] % (Auto) 7.6 % 01/10/24 07:11 Eos % (Auto) 1.8 % 01/10/24 07:11 Baso % (Auto) 0.5 % 01/10/24 07:11 Neut # (Auto) 6.71 K/uL (1.40-6.50) H 01/10/24 07:11 Lymph # (Auto) 1.19 K/uL (1.20-3.40) L 01/10/24 07:11 [place] # (Auto) 0.67 K/uL (0.11-0.59) H 01/10/24 07:11 Eos # (Auto) 0.16 K/uL (0.00-0.50) 01/10/24 07:11 Baso # (Auto) 0.04 K/uL (0.00-0.20) 01/10/24 07:11 Immature Gran # (Auto) 0.04 K/uL (0.01-0.20) 01/10/24 07:11 PT 12.1 Seconds (9.0-12.0) H 01/10/24 07:11 INR 1.1 (0.9-1.1) 01/10/24 07:11 Heparin Anti-Xa, Unfract 0.80 IU/ml (0.3-0.7) H* 01/11/24 07:17 Sodium 142 mmol/L (136-145) 01/11/24 07:17 Potassium 3.3 mmol/L (3.5-5.1) L 01/11/24 07:17 Chloride 110 mmol/L (98-107) H 01/11/24 07:17 Carbon Dioxide 27 mmol/L (21-32) 01/11/24 07:17 Anion Gap 5 (3-11) 01/11/24 07:17 BUN 11 mg/dl (6-23) 01/11/24 07:17 Creatinine 0.79 mg/dl (0.6-1.2) 01/11/24 07:17 Est Cr Clr Drug Dosing 86.8 ml/min 01/11/24 07:17 Est GFR ( Amer) 84.9 ml/min 01/11/24 07:17 Est GFR (Non-Af Amer) 73.2 ml/min 01/11/24 07:17 BUN/Creatinine Ratio 13.9 (10-20) 01/11/24 07:17 Glucose 112 mg/dl (70-99(Fasting)) H 01/11/24 07:17 Lactate 1.2 mmol/L (0.4-2.0) 01/07/24 21:11 Calcium 8.6 mg/dl (8.6-10.3) 01/11/24 07:17 Magnesium 1.8 mg/dl (1.7-2.4) 01/10/24 07:11 Total Bilirubin 0.8 mg/dl (0.2-1.0) 01/10/24 07:11 Direct Bilirubin 0.5 mg/dl (0-0.2) H 01/07/24 21:11 AST 10 U/L (13-39) L 01/10/24 07:11 ALT 10 U/L (7-52) 01/10/24 07:11 Alkaline Phosphatase 59 U/L (34-104) 01/10/24 07:11 B-Natriuretic Peptide 85 pg/ml (0-100) 01/07/24 21:11 Total Protein 6.2 gm/dl (6.0-8.3) 01/10/24 07:11 Albumin 3.1 gm/dl (3.4-5.0) L 01/10/24 07:11 Globulin 3.1 gm/dl (2.5-4.0) 01/10/24 07:11 Albumin/Globulin Ratio 1.0 (0.9-2) 01/10/24 07:11 Procalcitonin 0.20 ng/ml (0-0.5) 01/07/24 18:20 SARS-CoV-2 (PCR) NEGATIVE (Negative) 01/07/24 21:33 Influenza Type A (PCR) Negative (Neg) 01/07/24 21:33 Influenza Type B (PCR) Negative (Neg) 01/07/24 21:33 RSV (RT-PCR) Negative (Neg) 01/07/24 21:33 Impressions Chest X-Ray 01/07/24 21:00 XR chest 1V portable HISTORY: Shortness of breath. COMPARISON: Chest 11/17/2021. FINDINGS: No pneumothorax. The heart remains enlarged. There is mild central pulmonary vascular congestion without overt edema. Surgical clips within the upper abdomen again noted. Small left pleural effusion. Left basilar linear densities favor subsegmental atelectasis. No acute fractures. Cervical spinal fusion hardware. IMPRESSION: 1. Cardiomegaly with mild congestive change. 2. Small left pleural effusions and left basilar densities favoring subsegmental atelectasis. ACT 112: Negative or not required by law. Electronically signed by: Drew Noyola M.D. 01/08/2024 7:46 AM Hip/Pelvis X-Ray 01/07/24 21:00 XR hips DOLLY 1v w pelvis HISTORY: 73 years-old Female right hip pain . Pain of the pelvis and right hip COMPARISON: 02/27/2022 TECHNIQUE: AP view of the pelvis with 2 views of the right hip FINDINGS: Severe osteoarthritis of the hips. Lumbar spinal fusion hardware. Limited exam secondary to patient body habitus. No acute fracture, dislocation or acute osseous erosion identified by radiography. A catheter device projects over the midline pelvis. IMPRESSION: No acute fracture or dislocation identified. ACT 112: Negative or not required by law. The above report was generated using voice recognition software. It may contain grammatical, syntax or spelling errors. Electronically signed by: Kody Paulino M.D. 01/08/2024 7:20 AM Liver Ultrasound 01/07/24 21:21 Exam(s): US LIVER EXAM: US Abdomen Limited CLINICAL HISTORY: Reason for exam: elevated bilirubin with abd pain. TECHNIQUE: Real-time ultrasound of the abdomen with image documentation. COMPARISON: None. FINDINGS: Liver: The liver measures 13.4 cm. There is diffuse fatty infiltration. Gallbladder: Nonvisualized gallbladder consistent with known history of prior cholecystectomy. There is a cystic collection in the gallbladder fossa measuring 4.3 x 2.5 x 3.0 cm surrounded by a wall measuring 7 mm. Common bile duct: The common bile duct measures 7.1 mm. Kidneys: The right kidney is not well visualized. There is no hydronephrosis. A round hypoechoic structure measuring 4.6 x 3.5 x 3.2 cm seen in the upper pole of the right kidney most compatible with a simple cyst. Bowel: Exam is limited due to gas artifact in the bowel and body habitus. IMPRESSION: 1. Limited exam as described. Cystic structure in the gallbladder fossa, exact etiology indeterminate with wall measuring 7 mm, given the context of known prior cholecystectomy. Follow-up with CT or MRI of the upper abdomen recommended a nonacute setting for further characterization. 2. Right upper renal pole simple cyst measuring 4.6 cm. No further follow-up imaging recommended. 3. Diffuse fatty liver. 4. Remainder of the exam unremarkable. Electronically signed by: Sosa Pitts MD 01/08/24 00:16 AM Venous Doppler Study 01/07/24 21:21 CR Exam(s): US VENOUS BILATERAL LOWER EXTREMITIES EXAM: US Duplex Bilateral Lower Extremities Veins CLINICAL HISTORY: Reason for exam: BL LE swelling. TECHNIQUE: Real-time duplex ultrasound scan of the bilateral lower extremity veins integrating B-mode two-dimensional vascular structure, Doppler spectral analysis, color flow Doppler imaging and compression. COMPARISON: None. FINDINGS: Right deep veins: Absent compressibility with internal echoes and no flow from the proximal right superficial femoral vein to the calf veins consistent with deep venous thrombosis. Right superficial veins: Unremarkable. No thrombus in the visualized right great saphenous vein. Left deep veins: Unremarkable. No DVT in the left common femoral, femoral, proximal deep femoral or popliteal veins. The veins demonstrate normal color flow, are normally compressible, with normal phasic flow and/or augmentation response. Left superficial veins: Unremarkable. No thrombus in the visualized left great saphenous vein. Soft tissues: There is diffuse edema involving the right calf region, limiting adequate visualization of calf vessels. No popliteal cyst. IMPRESSION: 1. Deep venous thrombosis involving the right lower extremity from the proximal right superficial femoral vein into the popliteal vein and calf and left soles. 2. No ultrasonographic evidence of deep venous thrombosis involving the left lower extremity. Communications: Call Doctor Other Electronically signed by: Sosa Pitts MD 01/08/24 00:03 AM Chest CTA 01/08/24 00:00 CR Exam(s): CTA CHEST IV Amt: 70 ml opti 320 EXAM: CT Angiography Chest With Intravenous Contrast CLINICAL HISTORY: Reason for exam: PE. TECHNIQUE: Axial computed tomographic angiography images of the chest with intravenous contrast. CTDI is 42.65 mGy and DLP is 890.56 mGy-cm. Automated exposure control was utilized for the study. A dose lowering technique was utilized adhering to the principles of ALARA. MIP reconstructed images were created and reviewed. COMPARISON: None. FINDINGS: Pulmonary arteries: Multiple filling defects identified within the mid proximal segmental branches of the left upper lobe, left lower lobe and right posterior upper lobe compatible with multiple bilateral pulmonary emboli. Aorta: No acute findings. No thoracic aortic aneurysm. Lungs: Left lower lobe consolidation suggestive of atelectasis versus residual infiltrate. Patchy opacity within the left upper lobe which may indicate pneumonitis. Mild posterior dependent atelectasis involving the right upper and lower lobe. Otherwise normal right lung parenchyma. Pleural space: Mild left-sided pleural effusion. No pneumothorax. Heart: The RV/LV ratio is 0.7 with no evidence of right-sided cardiac strain. Mild to moderate cardiomegaly with coronary artery calcifications. No significant pericardial effusion. Mediastinum: Mild to moderate hiatal hernia. Bones/joints: No acute fracture. No dislocation. Soft tissues: See below. Lymph nodes: Unremarkable. No enlarged lymph nodes. Intraperitoneal space: Upper abdomen reveal several surgical clips in the left upper abdomen. Other findings: Multilevel degenerative disease of the spine. IMPRESSION: 1. Multiple bilateral pulmonary emboli with no evidence of right-sided cardiac strain. 2. Mild left-sided pleural effusion with left lower lobe and left upper lobe pneumonitis versus atelectasis. 3. Mild right-sided atelectasis as described. Communications: Call Doctor Other Electronically signed by: Sosa Pitts MD 01/08/24 02:16 AM
[2024-01-11] MEDS ORDERED: LEVALBUTEROL 1.25 MG/3 ML NEB NEB PRN (11:33)
--- NOTE | 2024-01-11 11:36 | Hospitalist Progress Note ---
Date of Service January 11, 2024 Assessment & Plan (1) VTE (venous thromboembolism): Plan: Pt presented with leg wounds and decline in function initial concern for metabolic encephalopathy due to infection of legs but found to have RLE DVT and multiple PE's started on therapeutic heparin parenterally reportedly was on home eliquis, seems RX may have been stopped early dec -Presented to the ED via EMS; was reported by ED staff that a home health caregiver called 911 after noting her LE wounds -It does not appear that the patient has been able to care for herself and has some component of cognitive decline/dementia -We will place PT/OT consults and consults management for assistance as she will likely need placement on discharge Appears patient is agreeable to rehab on 01/10 Vitals and labs appear stable. Due to obesity and elevated BMI, concern over restarting eliquis in the setting of an acute pulmonary emboli. Patient will be transitioned to coumadin. (2) Atrial fibrillation: Plan: - hx of afib presented in RVR -initial hypokalemia replete (3) Pressure ulcer: Plan: -Patient with multiple, chronic-appearing pressure ulcers on the posterior left thigh and sacrum -They do not appear infected on exam -Will place wound care nurse consult -Turn and position q2h -no antibiotics at present (4) Hip pain, right: Plan: -Patient expresses severe right hip pain -X ray eval is without fracture (5) Elevated bilirubin: Plan: -Total bili elevated at 1.8 ? [place] liver us shows some changes in the gall bladder fossa, but no dilated Hepatic ducts (6) Dementia: Plan: -Last PCP note listed concerns for dementia -No focal neuro defects on exam -Fall/aspiration precautions ordered -directly impacts ability to care for self Admission and Anticipated Discharge Date Admission Date: January 07, 2024 Subjective 74 yo female reports having some intermittent SOB Review of Systems Review of Systems: All systems reviewed & are unremarkable except as noted in HPI & below Physical Exam Physical Exam: pleasant d/o feeling legs are still swollen cardiac is rate controlled and irregular lungs are clear ext with 2+ edema and contionues with venous stasis changes with skin breakdown Results & Data Results & Data Vital Signs (Past 12 Hours) Vital Signs Temp Pulse Pulse Resp BP Pulse Ox O2 Del Method 01/11/24 08:28 36.6 C 105 H 18 135/81 93 Room Air 01/11/24 07:26 79 01/11/24 04:00 36.6 C 84 16 149/81 H 97 Room Air 01/11/24 00:00 36.6 C 84 14 132/80 95 Room Air PG Care Time/CCT Total # of Minutes Spent Total Time Spent with Patient: Total time spent is greater than 50% in coordination of care (as documented) at patient's floor/unit and/or counseling patient: Coding Level of Care Code 63084 SUB INP/OBS CARE 2/35MIN Diagnoses VTE (venous thromboembolism) I82.90 Chronic atrial fibrillation I48.2 Atrial fibrillation type: chronic Pressure ulcer L89.90 Hip pain, right M25.551 Elevated bilirubin R17 Dementia F03.90 (2) Atrial fibrillation Atrial fibrillation type: chronic Qualified Code(s): I48.2 - Chronic atrial fibrillation
[2024-01-11] MEDS: WARFARIN SOD 5 MG TAB PO ONE (13:01)
[2024-01-11] MEDS: BUPIVACAINE 0.5 % 5 MG/1 ML MPF 30ML VIAL ONE (15:10)
[2024-01-11] MEDS: methylPREDNISolone acetate 80 MG/ML VIAL ONE (15:10)
[2024-01-11] MEDS: LIDOCAINE 1% LOCAL 20 ML VIAL ONE (15:10)
--- NOTE | 2024-01-11 15:38 | Fluoroscopy Report ---
Fluoroscopic guided right hip steroid injection INDICATION: Right hip pain; arthritis PROCEDURE: Procedure and risks were explained. Informed consent was obtained. A final timeout was com pleted. The right hip was prepped and draped in sterile fashion. 1% lidocaine was utilized for skin a nesthesia. Utilizing fluoroscopic guidance, a 20-gauge needle was advanced into the right hip joint capsule. A s mall amount of iodinated contrast was injected confirming intra-articular needle position. Permanent spot images were obtained. The contrast was reaspirated along with a minimal amount of joint effusion . Next, a solution containing 2 mL of 1% lidocaine, 2 mL of 0.5% Sensorcaine and 80 mg of Depo-Medrol was injected into the right hip joint. The needle was removed and Band-Aid applied. The patient kelli rated the procedure well. Total fluoroscopy time was 42 seconds. DAP is 10.2 mcGy/m2. IMPRESSION: Right hip steroid injection as above. Performed, dictated, and signed by Sotero Figueroa PA-C; to be co-signed by Dr. Drew Noyola. Electronically signed by: Drew Noyola M.D. 01/11/2024 4:03 PM
[2024-01-11 16:24] LABS: ANTI-Xa, UFH(UnfractionatedHep 0.54 IU/ml (0.3-0.7)
[2024-01-11] MEDS: SUCRALFATE 1 GM/10 ML UDC PO SCH (20:30)
[2024-01-11] MEDS: PANTOprazole 40 MG TAB PO SCH (20:31)
[2024-01-11] MEDS ORDERED: Nursing to Pharmacy Communication SCH (21:45)
--- NOTE | 2024-01-12 07:29 | Orthopedic Progress Note ---
Date of Service January 12, 2024 Assessment & Plan Admission and Anticipated Discharge Date Admission Date: January 07, 2024 Orthopedic Progress Note Patient sleeping when I woke in the room. Upon awakening states that her pain in her hip is significant. She noted that the shot with the local anesthetic really helped for several hours but now that that is worn off her pain is back. I explained to her that it takes several days for the corticosteroid part of the injection to kick in. Vital signs are stable she is afebrile. Neurovascular check is grossly normal femoral sciatic nerve. Patient is quite immobile based on her overall size and overall comorbidities. With her pressure ulcers and so forth she is not a candidate for any type of implant surgery. Plan would be to try to use multimodal pain medication to try to control her discomfort. Liver disease will come and play based on selections. Will leave it up to internal medicine but should consider all forms of pain management that are possible.
[2024-01-12 08:23] LABS: Hemoglobin 12.2 g/dl (12.0-16.0); Mean Corpuscular Volume 81.9 fL (80.0-100.0); Mean Platelet Volume 10.9 fL (9.4-12.4); Platelet Count 224 K/uL (130-400); RDW Coefficient of Variation 14.9 % (11.5-14.5); RDW Standard Deviation 43.6 fL (36.4-46.3); Red Blood Count 4.52 M/uL (4.20-5.40); White Blood Count 9.14 K/ul (4.8-10.8)
[2024-01-12 08:58] LABS: ANTI-Xa, UFH(UnfractionatedHep 0.57 IU/ml (0.3-0.7); INR 1.2 (0.9-1.1); Prothrombin Time 12.5 Seconds (9.0-12.0)
[2024-01-12 09:19] LABS: Basophils # (auto) 0.01 K/uL (0.00-0.20); Basophils % (auto) 0.1 %; Echinocytes 1+; Immature Granulocytes # (auto) 0.05 K/uL (0.01-0.20); Immature Granulocytes % (auto) 0.5 %; Lymphocytes # (auto) 0.54 K/uL (1.20-3.40); Lymphocytes % (auto) 5.9 %; Monocytes # (auto) 0.14 K/uL (0.11-0.59); Monocytes % (auto) 1.5 %; Polychromasia 1+
[2024-01-12] MEDS: WARFARIN SOD 5 MG TAB PO ONE (12:00)
[2024-01-12 15:04] LABS: ANTI-Xa, UFH(UnfractionatedHep 0.57 IU/ml (0.3-0.7)
[2024-01-12] MEDS: PROCHLORPERAZINE 5 MG in SYRINGE 4 ML IV PRN (20:47)
--- NOTE | 2024-01-12 21:58 | Hospitalist Progress Note ---
Date of Service January 12, 2024 Assessment & Plan (1) VTE (venous thromboembolism): Plan: Pt presented with leg wounds and decline in function initial concern for metabolic encephalopathy due to infection of legs but found to have RLE DVT and multiple PE's started on therapeutic heparin parenterally reportedly was on home eliquis, seems RX may have been stopped early dec -Presented to the ED via EMS; was reported by ED staff that a home health caregiver called 911 after noting her LE wounds -It does not appear that the patient has been able to care for herself and has some component of cognitive decline/dementia -We will place PT/OT consults and consults management for assistance as she will likely need placement on discharge Appears patient is agreeable to rehab on 01/10 Vitals and labs appear stable. Due to obesity and elevated BMI, concern over restarting eliquis in the setting of an acute pulmonary emboli. Patient will be transitioned to coumadin. Received 5 mg dose on 01/11 and 01/12 (2) Atrial fibrillation: Plan: - hx of afib presented in RVR -initial hypokalemia replete (3) Pressure ulcer: Plan: -Patient with multiple, chronic-appearing pressure ulcers on the posterior left thigh and sacrum -They do not appear infected on exam -Will place wound care nurse consult -Turn and position q2h -no antibiotics at present (4) Hip pain, right: Plan: -Patient expresses severe right hip pain -X ray eval is without fracture (5) Elevated bilirubin: Plan: -Total bili elevated at 1.8 ? [place] liver us shows some changes in the gall bladder fossa, but no dilated Hepatic ducts (6) Dementia: Plan: -Last PCP note listed concerns for dementia -No focal neuro defects on exam -Fall/aspiration precautions ordered -directly impacts ability to care for self Admission and Anticipated Discharge Date Admission Date: January 07, 2024 Subjective 74 yo female reports no new symptoms. Review of Systems Review of Systems: All systems reviewed & are unremarkable except as noted in HPI & below Physical Exam Physical Exam: pleasant d/o feeling legs are still swollen cardiac is rate controlled and irregular lungs are clear ext with 2+ edema and contionues with venous stasis changes with skin breakdown Results & Data Results & Data Vital Signs (Past 12 Hours) Vital Signs Temp Pulse Pulse Resp BP Pulse Ox O2 Del Method 01/12/24 19:46 36.3 C L 102 H 20 161/84 H 92 Room Air 01/12/24 17:42 100 H 01/12/24 15:45 36.6 C 90 18 124/79 93 Room Air 01/12/24 11:26 36.7 C 92 H 18 135/60 95 Room Air PG Care Time/CCT Total # of Minutes Spent Total Time Spent with Patient: Total time spent is greater than 50% in coordination of care (as documented) at patient's floor/unit and/or counseling patient: Coding Level of Care Code 25525 SUB INP/OBS CARE 235MIN Diagnoses VTE (venous thromboembolism) I82.90 Chronic atrial fibrillation I48.2 Atrial fibrillation type: chronic Pressure ulcer L89.90 Hip pain, right M25.551 Elevated bilirubin R17 Dementia F03.90 (2) Atrial fibrillation Atrial fibrillation type: chronic Qualified Code(s): I48.2 - Chronic atrial fibrillation
[2024-01-12] MEDS: FAMOTIDINE 20 MG TAB PO ONE (22:52)
[2024-01-12] MEDS: MELATONIN 3 MG TAB PO PRN (22:52)
[2024-01-13 08:07] LABS: Hematocrit (blood only) 36.9 % (37.0-47.0); Hemoglobin 12.3 g/dl (12.0-16.0); Mean Corpuscular Hemoglobin 27.3 pg (25.0-34.0); Mean Corpuscular Hgb Conc 33.3 g/dL (32.0-36.0); Mean Platelet Volume 10.7 fL (9.4-12.4); Platelet Count 224 K/uL (130-400); RDW Coefficient of Variation 15.8 % (11.5-14.5); RDW Standard Deviation 45.9 fL (36.4-46.3); White Blood Count 11.12 K/ul (4.8-10.8)
[2024-01-13 08:25] LABS: BUN Creatinine Ratio 15.2 (10-20); Calcium 9.2 mg/dl (8.6-10.3); Creatinine Clr Calc Pharmacy 99.6 ml/min; Est GFR (African American) 100.2 ml/min; Est GFR (Non-African American) 86.4 ml/min; Potassium 3.6 mmol/L (3.5-5.1)
[2024-01-13 08:36] LABS: INR 2.2 (0.9-1.1); Prothrombin Time 22.5 Seconds (9.0-12.0)
[2024-01-13 08:55] LABS: ANTI-Xa, UFH(UnfractionatedHep 0.78 IU/ml (0.3-0.7)
[2024-01-13] MEDS: WARFARIN SOD 2.5 MG TAB PO STA (12:24)
[2024-01-13 15:26] LABS: ANTI-Xa, UFH(UnfractionatedHep 0.73 IU/ml (0.3-0.7)
[2024-01-13 21:15] LABS: ANTI-Xa, UFH(UnfractionatedHep 0.47 IU/ml (0.3-0.7)
--- NOTE | 2024-01-13 22:55 | Hospitalist Progress Note ---
Date of Service January 13, 2024 Assessment & Plan (1) VTE (venous thromboembolism): Plan: Pt presented with leg wounds and decline in function initial concern for metabolic encephalopathy due to infection of legs but found to have RLE DVT and multiple PE's started on therapeutic heparin parenterally reportedly was on home eliquis, seems RX may have been stopped early dec -Presented to the ED via EMS; was reported by ED staff that a home health caregiver called 911 after noting her LE wounds -It does not appear that the patient has been able to care for herself and has some component of cognitive decline/dementia -We will place PT/OT consults and consults management for assistance as she will likely need placement on discharge Appears patient is agreeable to rehab on 01/10 Vitals and labs appear stable. Due to obesity and elevated BMI, concern over restarting eliquis in the setting of an acute pulmonary emboli. Patient will be transitioned to coumadin. Received 5 mg dose on 01/11 and 01/12 Order 2.5mg of warfarin on 01/13 as INR is therapuetic, will bridge (2) Atrial fibrillation: Plan: - hx of afib presented in RVR -initial hypokalemia replete (3) Pressure ulcer: Plan: -Patient with multiple, chronic-appearing pressure ulcers on the posterior left thigh and sacrum -They do not appear infected on exam -Will place wound care nurse consult -Turn and position q2h -no antibiotics at present (4) Hip pain, right: Plan: -Patient expresses severe right hip pain -X ray eval is without fracture (5) Elevated bilirubin: Plan: -Total bili elevated at 1.8 ? [place] [facility] us shows some changes in the gall bladder fossa, but no dilated Hepatic ducts (6) Dementia: Plan: -Last PCP note listed concerns for dementia -No focal neuro defects on exam -Fall/aspiration precautions ordered -directly impacts ability to care for self Admission and Anticipated Discharge Date Admission Date: January 07, 2024 Subjective Patient reports no new symptoms. Review of Systems Review of Systems: All systems reviewed & are unremarkable except as noted in HPI & below Physical Exam Physical Exam: pleasant d/o feeling legs are still swollen cardiac is rate controlled and irregular lungs are clear ext with 2+ edema and contionues with venous stasis changes with skin breakdown Results & Data Results & Data Vital Signs (Past 12 Hours) Vital Signs Temp Pulse Pulse Resp BP BP Pulse Ox 01/13/24 19:56 36.8 C 96 H 20 153/72 H 92 01/13/24 19:23 01/13/24 17:22 97 H 01/13/24 15:46 36.8 C 91 H 18 161/83 H 95 01/13/24 12:42 36.7 C 82 18 146/75 H 96 01/13/24 11:07 77 01/13/24 11:05 O2 Del Method 01/13/24 19:56 Room Air 01/13/24 19:23 Room Air 01/13/24 17:22 01/13/24 15:46 Room Air 01/13/24 12:42 Room Air 01/13/24 11:07 01/13/24 11:05 Room Air PG Care Time/CCT Total # of Minutes Spent Total Time Spent with Patient: Total time spent is greater than 50% in coordination of care (as documented) at patient's floor/unit and/or counseling patient: Coding Level of Care Code 90890 SUB INP/OBS CARE MIN Diagnoses VTE (venous thromboembolism) I82.90 Chronic atrial fibrillation I48.2 Atrial fibrillation type: chronic Pressure ulcer L89.90 Hip pain, right M25.551 Elevated bilirubin R17 Dementia F03.90 (2) Atrial fibrillation Atrial fibrillation type: chronic Qualified Code(s): I48.2 - Chronic atrial fibrillation
[2024-01-14 06:00] LABS: Basophils # (auto) 0.04 K/uL (0.00-0.20); Basophils % (auto) 0.4 %; Eosinophils # (auto) 0.15 K/uL (0.00-0.50); Eosinophils % (auto) 1.5 %; Hematocrit (blood only) 37.7 % (37.0-47.0); Hemoglobin 12.2 g/dl (12.0-16.0); Immature Granulocytes # (auto) 0.05 K/uL (0.01-0.20); Immature Granulocytes % (auto) 0.5 %; Lymphocytes # (auto) 0.96 K/uL (1.20-3.40); Lymphocytes % (auto) 9.4 %; Mean Corpuscular Hemoglobin 27.1 pg (25.0-34.0); Mean Corpuscular Hgb Conc 32.4 g/dL (32.0-36.0); Mean Corpuscular Volume 83.8 fL (80.0-100.0); Mean Platelet Volume 10.6 fL (9.4-12.4); Monocytes % (auto) 4.9 %; Neutrophils % (auto) 83.3 %; Platelet Count 209 K/uL (130-400); RDW Standard Deviation 47.2 fL (36.4-46.3)
[2024-01-14 06:13] LABS: BUN Creatinine Ratio 17.9 (10-20); Calcium 8.9 mg/dl (8.6-10.3); Creatinine Clr Calc Pharmacy 79.5 ml/min; Est GFR (African American) 78.8 ml/min; Potassium 3.3 mmol/L (3.5-5.1)
[2024-01-14 07:26] LABS: ANTI-Xa, UFH(UnfractionatedHep 0.47 IU/ml (0.3-0.7); INR 2.8 (0.9-1.1); Prothrombin Time 28.7 Seconds (9.0-12.0)
--- NOTE | 2024-01-14 10:19 | Orthopedic Progress Note ---
Date of Service January 14, 2024 Assessment & Plan (1) Degenerative joint disease of right hip: Plan: 74-year-old with severe osteoarthritis right hip Patient is not a surgical candidate due to medical complexity. Continue with conservative treatment measures and pain control including oral steroids, gabapentin and oral Dilaudid per medicine. She could benefit from a TENS unit outpatient. She was given cortisone injection by IR and hopefully this will st art to help her. PT/OT. Follow-up as needed in our office. Admission and Anticipated Discharge Date Admission Date: January 07, 2024 Subjective Patient was seen and examined bedside. She says that her hip is really bothering her. She reports 8-9 out of 10 pain. She is able to walk with a walker. Physical Exam Physical Exam: Patient is lying in bed comfortably. She is unable to actively lift her leg. She can bend her knee and move her ankle. Results & Data Vital Signs (Past 12 Hours) Vital Signs Temp Pulse Pulse Resp BP Pulse Ox O2 Del Method 01/14/24 09:33 67 01/14/24 07:41 37.0 C 96 H 18 164/87 H 95 Room Air 01/14/24 03:09 36.8 C 78 18 142/82 H 93 Room Air
[2024-01-14 12:40] LABS: ANTI-Xa, UFH(UnfractionatedHep 0.56 IU/ml (0.3-0.7)
[2024-01-14] MEDS: WARFARIN SOD 2.5 MG TAB PO SCH (18:36)
--- NOTE | 2024-01-14 20:46 | Hospitalist Progress Note ---
Date of Service January 14, 2024 Assessment & Plan (1) VTE (venous thromboembolism): Plan: Pt presented with leg wounds and decline in function initial concern for metabolic encephalopathy due to infection of legs but found to have RLE DVT and multiple PE's started on therapeutic heparin parenterally reportedly was on home eliquis, seems RX may have been stopped early dec -Presented to the ED via EMS; was reported by ED staff that a home health caregiver called 911 after noting her LE wounds -It does not appear that the patient has been able to care for herself and has some component of cognitive decline/dementia -We will place PT/OT consults and consults management for assistance as she will likely need placement on discharge Appears patient is agreeable to rehab on 01/10 Vitals and labs appear stable. Due to obesity and elevated BMI, concern over restarting eliquis in the setting of an acute pulmonary emboli. Patient will be transitioned to coumadin. Received 5 mg dose on 01/11 and 01/12 Order 2.5mg of warfarin on 01/13 as INR is therapuetic, will stop heparin. (2) Atrial fibrillation: Plan: - hx of afib presented in RVR -initial hypokalemia replete (3) Pressure ulcer: Plan: -Patient with multiple, chronic-appearing pressure ulcers on the posterior left thigh and sacrum -They do not appear infected on exam -Will place wound care nurse consult -Turn and position q2h -no antibiotics at present (4) Hip pain, right: Plan: -Patient expresses severe right hip pain -X ray eval is without fracture (5) Elevated bilirubin: Plan: -Total bili elevated at 1.8 ? [place] liver us shows some changes in the gall bladder fossa, but no dilated Hepatic ducts (6) Dementia: Plan: -Last PCP note listed concerns for dementia -No focal neuro defects on exam -Fall/aspiration precautions ordered -directly impacts ability to care for self Admission and Anticipated Discharge Date Admission Date: January 07, 2024 Subjective Patient reports no new symptoms. Review of Systems Review of Systems: All systems reviewed & are unremarkable except as noted in HPI & below Physical Exam Physical Exam: pleasant d/o feeling legs are still swollen cardiac is rate controlled and irregular lungs are clear ext with 2+ edema and contionues with venous stasis changes with skin breakdown Results & Data Results & Data Vital Signs (Past 12 Hours) Vital Signs Temp Pulse Pulse Resp BP Pulse Ox O2 Del Method 01/14/24 20:28 36.6 C 79 18 143/77 H 97 Room Air 01/14/24 17:41 94 H 01/14/24 15:22 36.7 C 92 H 18 160/75 H 92 Room Air 01/14/24 10:58 37.1 C 82 18 179/85 H 95 Room Air 01/14/24 10:55 Room Air 01/14/24 09:33 67 PG Care Time/CCT Total # of Minutes Spent Total Time Spent with Patient: Total time spent is greater than 50% in coordination of care (as documented) at patient's floor/unit and/or counseling patient: Coding Level of Care Code 13755 SUB INP/OBS CARE 235MIN Diagnoses VTE (venous thromboembolism) I82.90 Chronic atrial fibrillation I48.2 Atrial fibrillation type: chronic Pressure ulcer L89.90 Hip pain, right M25.551 Elevated bilirubin R17 Dementia F03.90 (2) Atrial fibrillation Atrial fibrillation type: chronic Qualified Code(s): I48.2 - Chronic atrial fibrillation
[2024-01-15 06:42] LABS: Hematocrit (blood only) 37.7 % (37.0-47.0); Hemoglobin 12.3 g/dl (12.0-16.0); Mean Corpuscular Hemoglobin 27.3 pg (25.0-34.0); Mean Corpuscular Hgb Conc 32.6 g/dL (32.0-36.0); Mean Corpuscular Volume 83.8 fL (80.0-100.0); Mean Platelet Volume 10.5 fL (9.4-12.4); Platelet Count 187 K/uL (130-400); RDW Coefficient of Variation 15.7 % (11.5-14.5); RDW Standard Deviation 47.1 fL (36.4-46.3); White Blood Count 10.65 K/ul (4.8-10.8)
[2024-01-15 07:02] LABS: BUN Creatinine Ratio 16.4 (10-20); Creatinine Clr Calc Pharmacy 98.7 ml/min; Est GFR (African American) 99.7 ml/min
[2024-01-15 07:23] LABS: ANTI-Xa, UFH(UnfractionatedHep 0.11 IU/ml (0.3-0.7); INR 3.4 (0.9-1.1); Prothrombin Time 34.6 Seconds (9.0-12.0)
--- NOTE | 2024-01-15 10:10 | Electrocardiogram Report ---
Test Reason : Blood Pressure : / mmHG Vent. Rate : 088 BPM Atrial Rate : 092 BPM P-R Int : 000 ms QRS Dur : 086 ms QT Int : 364 ms P-R-T Axes : 000 -15 033 degrees QTc Int : 440 ms Atrial fibrillation Nonspecific T wave abnormality Abnormal ECG When compared with ECG of 07-JAN-2024 17:38, Nonspecific T wave abnormality, improved in Inferior leads Confirmed by Joseph Huynh ([id number]) on 01/15/2024 10:10:08 AM Referred By: REFERRED SELF Confirmed By:Joesph Huynh
[2024-01-16 07:15] LABS: Basophils # (auto) 0.05 K/uL (0.00-0.20); Basophils % (auto) 0.5 %; Eosinophils # (auto) 0.25 K/uL (0.00-0.50); Eosinophils % (auto) 2.4 %; Hematocrit (blood only) 39.4 % (37.0-47.0); Hemoglobin 12.9 g/dl (12.0-16.0); Immature Granulocytes # (auto) 0.05 K/uL (0.01-0.20); Immature Granulocytes % (auto) 0.5 %; Lymphocytes # (auto) 0.83 K/uL (1.20-3.40); Mean Corpuscular Hemoglobin 27.3 pg (25.0-34.0); Mean Corpuscular Hgb Conc 32.7 g/dL (32.0-36.0); Mean Corpuscular Volume 83.5 fL (80.0-100.0); Monocytes # (auto) 0.73 K/uL (0.11-0.59); Neutrophils # (auto) 8.53 K/uL (1.40-6.50); Neutrophils % (auto) 81.6 %; Platelet Count 204 K/uL (130-400); RDW Coefficient of Variation 15.8 % (11.5-14.5); RDW Standard Deviation 46.7 fL (36.4-46.3); Red Blood Count 4.72 M/uL (4.20-5.40); White Blood Count 10.44 K/ul (4.8-10.8)
[2024-01-16 07:44] LABS: Prothrombin Time 39.8 Seconds (9.0-12.0)
--- NOTE | 2024-01-16 08:52 | Hospitalist Progress Note ---
Date of Service January 15, 2024 Assessment & Plan (1) VTE (venous thromboembolism): Plan: Pt presented with leg wounds and decline in function initial concern for metabolic encephalopathy due to infection of legs but found to have RLE DVT and multiple PE's started on therapeutic heparin parenterally reportedly was on home eliquis, seems RX may have been stopped early dec -Presented to the ED via EMS; was reported by ED staff that a home health caregiver called 911 after noting her LE wounds -It does not appear that the patient has been able to care for herself and has some component of cognitive decline/dementia -We will place PT/OT consults and consults management for assistance as she will likely need placement on discharge Appears patient is agreeable to rehab on 01/10 Vitals and labs appear stable. Due to obesity and elevated BMI, concern over restarting eliquis in the setting of an acute pulmonary emboli. Patient will be transitioned to coumadin. Received 5 mg dose on 01/11 and 01/12 Order 2.5mg of warfarin on 01/13 as INR is therapuetic, will stop heparin. will continue warfarin 2.5 mg ongoing. (2) Atrial fibrillation: Plan: - hx of afib presented in RVR -initial hypokalemia replete (3) Pressure ulcer: Plan: -Patient with multiple, chronic-appearing pressure ulcers on the posterior left thigh and sacrum -They do not appear infected on exam -Will place wound care nurse consult -Turn and position q2h -no antibiotics at present (4) Hip pain, right: Plan: -Patient expresses severe right hip pain -X ray eval is without fracture (5) Elevated bilirubin: Plan: -Total bili elevated at 1.8 ? [place] [facility] us shows some changes in the gall bladder fossa, but no dilated Hepatic ducts (6) Dementia: Plan: -Last PCP note listed concerns for dementia -No focal neuro defects on exam -Fall/aspiration precautions ordered -directly impacts ability to care for self Patient is confused today asking to go home. Admission and Anticipated Discharge Date Admission Date: January 07, 2024 Subjective Patient reports no new symptoms. Review of Systems Review of Systems: All systems reviewed & are unremarkable except as noted in HPI & below Physical Exam Physical Exam: pleasant d/o feeling legs are still swollen cardiac is rate controlled and irregular lungs are clear ext with 2+ edema and contionues with venous stasis changes with skin breakdown Results & Data Results & Data Vital Signs (Past 12 Hours) Vital Signs Temp Pulse Pulse Pulse Resp BP BP 01/16/24 07:52 36.7 C 83 15 138/80 01/16/24 07:20 77 01/16/24 03:40 36.6 C 80 18 150/71 H 01/15/24 22:47 36.6 C 81 16 152/78 H 01/15/24 22:00 83 Pulse Ox O2 Del Method 01/16/24 07:52 96 Room Air 01/16/24 07:20 01/16/24 03:40 96 Room Air 01/15/24 22:47 94 Room Air 01/15/24 22:00 PG Care Time/CCT Total # of Minutes Spent Total Time Spent with Patient: Total time spent is greater than 50% in coordination of care (as documented) at patient's floor/unit and/or counseling patient: Coding Level of Care Code 16647 SUB INP/OBS CARE 2/35MIN Diagnoses VTE (venous thromboembolism) I82.90 Chronic atrial fibrillation I48.2 Atrial fibrillation type: chronic Pressure ulcer L89.90 Hip pain, right M25.551 Elevated bilirubin R17 Dementia F03.90 (2) Atrial fibrillation Atrial fibrillation type: chronic Qualified Code(s): I48.2 - Chronic atrial fibrillation
--- NOTE | 2024-01-16 17:59 | Hospitalist Progress Note ---
Date of Service January 16, 2024 Assessment & Plan (1) VTE (venous thromboembolism): Plan: Pt presented with leg wounds and decline in function initial concern for metabolic encephalopathy due to infection of legs but found to have RLE DVT and multiple PE's started on therapeutic heparin parenterally reportedly was on home eliquis, seems RX may have been stopped early dec -Presented to the ED via EMS; was reported by ED staff that a home health caregiver called 911 after noting her LE wounds -It does not appear that the patient has been able to care for herself and has some component of cognitive decline/dementia -We will place PT/OT consults and consults management for assistance as she will likely need placement on discharge Appears patient is agreeable to rehab on 01/10 Vitals and labs appear stable. Due to obesity and elevated BMI, concern over restarting eliquis in the setting of an acute pulmonary emboli. Patient will be transitioned to coumadin. Received 5 mg dose on 01/11 and 01/12 Order 2.5mg of warfarin on 01/13 as INR is therapuetic, will stop heparin. will continue warfarin 2.5 mg ongoing.INR remains therapeutic (2) Atrial fibrillation: Plan: - hx of afib presented in RVR -initial hypokalemia replete (3) Pressure ulcer: Plan: -Patient with multiple, chronic-appearing pressure ulcers on the posterior left thigh and sacrum -They do not appear infected on exam -Will place wound care nurse consult -Turn and position q2h -no antibiotics at present (4) Hip pain, right: Plan: -Patient expresses severe right hip pain -X ray eval is without fracture (5) Elevated bilirubin: Plan: -Total bili elevated at 1.8 ? [place] liver us shows some changes in the gall bladder fossa, but no dilated Hepatic ducts (6) Dementia: Plan: -Last PCP note listed concerns for dementia -No focal neuro defects on exam -Fall/aspiration precautions ordered -directly impacts ability to care for self Patient is confused today asking to go home. Patient has intermittent confusion during her hospital stay. Admission and Anticipated Discharge Date Admission Date: January 07, 2024 Subjective Patient reports no new symptoms. Review of Systems Review of Systems: All systems reviewed & are unremarkable except as noted in HPI & below Physical Exam Physical Exam: pleasant d/o feeling legs are still swollen cardiac is rate controlled and irregular lungs are clear ext with 2+ edema and contionues with venous stasis changes with skin breakdown Results & Data Results & Data Vital Signs (Past 12 Hours) Vital Signs Temp Pulse Pulse Resp BP Pulse Ox O2 Del Method 01/16/24 15:39 90 01/16/24 11:58 36.6 C 89 16 136/84 97 Room Air 01/16/24 08:50 Room Air 01/16/24 07:52 36.7 C 83 15 138/80 96 Room Air 01/16/24 07:20 77 PG Care Time/CCT Total # of Minutes Spent Total Time Spent with Patient: Total time spent is greater than 50% in coordination of care (as documented) at patient's floor/unit and/or counseling patient: Coding Level of Care Code 41073 SUB INP/OBS CARE 2MIN Diagnoses VTE (venous thromboembolism) I82.90 Chronic atrial fibrillation I48.2 Atrial fibrillation type: chronic Pressure ulcer L89.90 Hip pain, right M25.551 Elevated bilirubin R17 Dementia F03.90 (2) Atrial fibrillation Atrial fibrillation type: chronic Qualified Code(s): I48.2 - Chronic atrial fibrillation
[2024-01-17 07:02] LABS: Hematocrit (blood only) 39.5 % (37.0-47.0); Hemoglobin 12.8 g/dl (12.0-16.0); Mean Corpuscular Hemoglobin 26.9 pg (25.0-34.0); Mean Corpuscular Hgb Conc 32.4 g/dL (32.0-36.0); Mean Corpuscular Volume 83.2 fL (80.0-100.0); Mean Platelet Volume 11.3 fL (9.4-12.4); Platelet Count 212 K/uL (130-400); RDW Coefficient of Variation 16.1 % (11.5-14.5); RDW Standard Deviation 48.1 fL (36.4-46.3); Red Blood Count 4.75 M/uL (4.20-5.40)
[2024-01-17 07:17] LABS: BUN Creatinine Ratio 14.5 (10-20); Calcium 9.1 mg/dl (8.6-10.3); Creatinine Clr Calc Pharmacy 96.4 ml/min; Est GFR (African American) 98.7 ml/min; Est GFR (Non-African American) 85.2 ml/min; Potassium 2.8 mmol/L (3.5-5.1)
[2024-01-17 07:21] LABS: INR 2.8 (0.9-1.1); Prothrombin Time 29.2 Seconds (9.0-12.0)
--- NOTE | 2024-01-17 17:28 | Orthopedic Progress Note ---
Date of Service January 17, 2024 Assessment & Plan (1) Hip osteoarthritis: Plan: The patient was educated regarding today's findings. Conservative care measures were discussed. She asked numerous times when she would be discharged to home. I explained to the patient that she would need to participate in physical therapy and be able to walk a reasonable distance to ensure that she can care for herself at home. The patient insists that she can. I discussed placement at a senior living facility or [facility] to assist with strengthening. The patient stated she did not want to go to either of those facilities, and wanted to go home. There is concerned that she would not adequately take care of herself and placement is recommended. She continued to refuse. We will continue to monitor her progress and PT to assist in determining appropriate discharge. Continue with oral pain medication as needed for hip discomfort. Admission and Anticipated Discharge Date Admission Date: January 07, 2024 Subjective This 74-year-old female seen today in her room. She is requesting to be sent home. She states she has things to do, like cleaning. She currently denies any pain in her hips or knees. No other complaints at this time. Physical Exam Physical Exam: General: Well-developed, well-nourished, elderly female, in no acute distress. Laying in bed. She is oriented to place and person. Not oriented to date or time. Skin: Warm and dry with fair turgor. Excessively dry skin on her feet and lower legs. Musculoskeletal: The patient currently has no discomfort with palpation over her knees. She has no complaints of pain with passive motion of her hips or knees on either side. She is able to perform heel slides bilaterally. Intact motor function to the ankles bilaterally. Neurologic: Gross sensation is intact across both lower extremities by soft touch. Results & Data Vital Signs (Past 12 Hours) Vital Signs Temp Pulse Pulse Resp BP Pulse Ox O2 Del Method 01/17/24 16:02 36.2 C L 83 18 174/70 H 98 Room Air 01/17/24 15:59 85 01/17/24 12:49 36.6 C 78 18 143/72 H 96 Room Air 01/17/24 08:35 36.5 C 90 18 144/79 H 96 Room Air 01/17/24 07:44 62
--- NOTE | 2024-01-17 22:53 | Hospitalist Progress Note ---
Date of Service January 17, 2024 Assessment & Plan (1) VTE (venous thromboembolism): Plan: Pt presented with leg wounds and decline in function initial concern for metabolic encephalopathy due to infection of legs but found to have RLE DVT and multiple PE's started on therapeutic heparin parenterally reportedly was on home eliquis, seems RX may have been stopped early dec -Presented to the ED via EMS; was reported by ED staff that a home health caregiver called 911 after noting her LE wounds -It does not appear that the patient has been able to care for herself and has some component of cognitive decline/dementia -We will place PT/OT consults and consults management for assistance as she will likely need placement on discharge Appears patient is agreeable to rehab on 01/10 Vitals and labs appear stable. Due to obesity and elevated BMI, concern over restarting eliquis in the setting of an acute pulmonary emboli. Patient will be transitioned to coumadin. Received 5 mg dose on 01/11 and 01/12 Order 2.5mg of warfarin on 01/13 as INR is therapuetic, will stop heparin. will continue warfarin 2.5 mg Patient INR has mainly been therapetuic with moments of supratherapeutic which were likely due to her intial doses. (2) Atrial fibrillation: Plan: - hx of afib presented in RVR -initial hypokalemia replete (3) Pressure ulcer: Plan: -Patient with multiple, chronic-appearing pressure ulcers on the posterior left thigh and sacrum -They do not appear infected on exam -Will place wound care nurse consult -Turn and position q2h -no antibiotics at present (4) Hip pain, right: Plan: -Patient expresses severe right hip pain -X ray eval is without fracture (5) Elevated bilirubin: Plan: -Total bili elevated at 1.8 ? [facility] liver us shows some changes in the gall bladder fossa, but no dilated Hepatic ducts (6) Dementia: Plan: -Last PCP note listed concerns for dementia -No focal neuro defects on exam -Fall/aspiration precautions ordered -directly impacts ability to care for self Patient has intermittent confusion during her hospital stay. Patient is asking if she cannot go to a rehab or SNF on 01/17 to go home. WIll recommend PT to reassess her on 01/17 Admission and Anticipated Discharge Date Admission Date: January 07, 2024 Subjective Patient reports no new symptoms Review of Systems Review of Systems: All systems reviewed & are unremarkable except as noted in HPI & below Physical Exam Physical Exam: pleasant d/o feeling legs are still swollen cardiac is rate controlled and irregular lungs are clear ext with 2+ edema and contionues with venous stasis changes with skin breakdown Results & Data Results & Data Vital Signs (Past 12 Hours) Vital Signs Temp Pulse Pulse Resp BP Pulse Ox O2 Del Method 01/17/24 20:09 36.7 C 90 18 117/85 97 Room Air 01/17/24 16:02 36.2 C L 83 18 174/70 H 98 Room Air 01/17/24 15:59 85 01/17/24 12:49 36.6 C 78 18 143/72 H 96 Room Air PG Care Time/CCT Total # of Minutes Spent Total Time Spent with Patient: Total time spent is greater than 50% in coordination of care (as documented) at patient's floor/unit and/or counseling patient: Coding Level of Care Code 87349 SUB INP/OBS CARE 2/35MIN Diagnoses VTE (venous thromboembolism) I82.90 Chronic atrial fibrillation I48.2 Atrial fibrillation type: chronic Pressure ulcer L89.90 Hip pain, right M25.551 Elevated bilirubin R17 Dementia F03.90 (2) Atrial fibrillation Atrial fibrillation type: chronic Qualified Code(s): I48.2 - Chronic atrial fibrillation
--- NOTE | 2024-01-18 07:42 | Hospitalist Progress Note ---
Date of Service January 18, 2024 Assessment & Plan (1) VTE (venous thromboembolism): Plan: Pt presented with leg wounds and decline in function initial concern for metabolic encephalopathy due to infection of legs but found to have RLE DVT and multiple PE's started on therapeutic heparin parenterally reportedly was on home eliquis, seems RX may have been stopped early dec Due to obesity and elevated BMI, concern over restarting eliquis in the setting of an acute pulmonary emboli. Patient will be transitioned to coumadin., INR is @.8 on 01/18/24 Presented to the ED via EMS; was reported by ED staff that a home health caregiver called 911 after noting her LE wounds -It does not appear that the patient has been able to care for herself and has some component of cognitive decline/dementia -PT/OT consults and consults management for assistance as she will likely need placement on discharge (2) Atrial fibrillation: Plan: - hx of afib presented in RVR , rate controlled and on coumadin -initial hypokalemia replete (3) Pressure ulcer: Plan: -Patient with multiple, chronic-appearing pressure ulcers on the posterior left thigh and sacrum these are healed resolved (4) Hip pain, right: Plan: -Patient expresses severe right hip pain -X ray eval is without fracture ortho consult feels that pain is secondary to OA (5) Elevated bilirubin: Plan: -Total bili elevated at 1.8 ? [facility] us shows some changes in the gall bladder fossa, but no dilated Hepatic ducts (6) Dementia: Plan: -Last PCP note listed concerns for dementia -No focal neuro defects on exam -Fall/aspiration precautions ordered -directly impacts ability to care for self Patient has intermittent confusion during her hospital stay. Patient is asking if she cannot go to a rehab or SNF on 01/17 to go home. Psychaitric evaluation Dr Rebollar " I do not feel the patient is able to make decisions about her health care. She is not oriented anywhere close to the correct time. She does not seem to understand what her issues are and does not believe them. She does not understand exactly what the team is recommending regarding treatment. She also does not seem to understand the risks and benefits of not having that treatment and just going home." Admission and Anticipated Discharge Date Admission Date: January 07, 2024 Subjective pt cannot remember meeting me in the past she was seen by psychiatry and felt that she cannot make informed decisions about her health as she is not aware of consequences she has no contractible next of kin at present Physical Exam Physical Exam: pt has great improvement in legs, she has persistent chronic venous stasis changes she is not oriented to place or time cardiac is regular lungs are clear Results & Data Results & Data Vital Signs (Past 12 Hours) Vital Signs Temp Pulse Pulse Resp BP Pulse Ox O2 Del Method 01/18/24 05:52 67 01/18/24 04:09 97.9 F 80 18 116/74 97 Room Air 01/17/24 23:34 98.1 F 89 18 115/80 98 Room Air 01/17/24 20:09 98.1 F 90 18 117/85 97 Room Air Laboratory Results review INR review chemistry PG Care Time/CCT Total # of Minutes Spent Total Time Spent with Patient: Total time spent is greater than 50% in coordination of care (as documented) at patient's floor/unit and/or counseling patient: Coding Level of Care Code 97606 SUB INP/OBS CARE 3/50MIN Diagnoses VTE (venous thromboembolism) I82.90 Chronic atrial fibrillation I48.2 Atrial fibrillation type: chronic Pressure ulcer L89.90 Hip pain, right M25.551 Elevated bilirubin R17 Dementia F03.90 (2) Atrial fibrillation Atrial fibrillation type: chronic Qualified Code(s): I48.2 - Chronic atrial fibrillation
[2024-01-18 08:12] LABS: INR 2.8 (0.9-1.1); Prothrombin Time 28.9 Seconds (9.0-12.0)
--- NOTE | 2024-01-18 11:24 | Psychiatric Consultation ---
Date of Consultation January 18, 2024 Impression / Recommendations Impression Based on everything that I gathered, I do not feel the patient is able to make decisions about her health care. She is not oriented anywhere close to the correct time. She does not seem to understand what her issues are and does not believe them. She does not understand exactly what the team is recommending regarding treatment. She also does not seem to understand the risks and benefits of not having that treatment and just going home. (1) Dementia: Plan I discussed the case with Dr. Sotelo who took over the case from Dr. Rawls. I think that the patient is doing well enough that she does not require medications from a psychiatric point of view at this time. However, she may become agitated once she finds out she will be able to leave right away. Feel free to contact us if there are any other questions or concerns. Otherwise, we will sign off at this time. Psych History Identifying Data Andriy is a 73-year-old female who has been in our hospital since January 07 with venous thromboembolism and multiple PEs. I was asked by Dr. Rawls to evaluate the patient for competency. Chief Complaint "[]". History of Present Illness Dr. Rawls was telling me that the patient was wanting to go home and has a history of some dementia. Physical therapy was recommending rehabilitation. She was wanting to leave the hospital. When I met with her this morning, she was very pleasant and cooperative. She says she is motivated. She feels that just laying in bed is not can to do her any good. She cannot remember exactly why she is here in the hospital but when I reminded her of the blood clots she looked like she understood what I was talking about. She thinks the clots are now gone by now. I asked her what could possibly happen that would be bad if she were to go home right now. She said that nothing bad would happen. She would get out and walk more. She pointed out that her family lives far away and she is eventually going to moving closer to them but right now she does not have much support. She said that she wants to get better, but then a few minutes later told me that she did not think she had a problem and that the doctors just thought that she had a problem. She did not seem to really understand what was being recommended regarding rehab. Allergies Allergy/AdvReac Type Severity Reaction Status Date / Time latex Allergy Intermediate Rash, itchy Verified 03/28/23 10:40 adhesive Allergy Mild Itchy Verified 03/28/23 10:40 bacitracin Allergy Unknown Unknown Verified 03/28/23 10:40 [From Neosporin ([id number])] neomycin Allergy Unknown Unknown Verified 03/28/23 10:40 [From Neosporin ([id number])] polymyxin B Allergy Unknown Unknown Verified 03/28/23 10:40 [From Neosporin ([id number])] metoclopramide [From Reglan] AdvReac Intermediate Dyskinetic Verified 03/28/23 10:40 reaction Home Medications Medication Instructions Recorded Confirmed Type acetaminophen 325 mg tablet 650 mg PO Q4 PRN Pain 08/11/21 01/07/24 History (Tylenol) docusate sodium 100 mg capsule 100 mg PO BID 08/11/21 01/07/24 History polyethylene glycol 3350 17 17 g PO DAILY 09/08/21 01/07/24 History gram/dose oral powder (Miralax) diclofenac sodium 1 % topical gel 1 ea topical TID #100 grams 12/01/21 01/07/24 Rx Hospital Bed Homecare (Hospital #1 ea 12/13/21 01/07/24 Rx Bed) Wheelchair (Manual) #1 ea 12/06/22 01/07/24 Rx walker (Ultra-Light Rollator misc) #1 ea 12/25/22 01/07/24 Rx albuterol sulfate 90 mcg/actuation 2 puff inhalation QID PRN asthma 03/22/23 01/07/24 Rx aerosol inhaler #3 Inhalers apixaban 5 mg tablet (Eliquis) 5 mg PO .COMPLEX #180 tabs 03/22/23 01/07/24 Rx fluticasone propionate 50 1 spray intranasal DAILY #16 grams 03/22/23 01/07/24 Rx mcg/actuation nasal spray,suspension (Flonase Allergy Relief) potassium chloride 10 mEq 20 meq (2 x 10 mEq) PO .COMPLEX 03/22/23 01/07/24 Rx tablet,extended release #360 tabs famotidine 20 mg tablet 20 mg PO .DAILY AT 8 AM 01/07/24 01/07/24 History furosemide 40 mg tablet 40 mg PO .DAILY AT 8 AM 01/07/24 01/07/24 History Patient History Medical History Chronic anemia Aortic stenosis Moderate calcific aortic stenosis (MG 22, PV 3.2) per 11/18/21 echo Hiatal hernia Has had discussion for future surgical repair Sciatica Vertigo Hypertension GERD (gastroesophageal reflux disease) Atrial fibrillation Dx 2016; on Eliquis Poor historian Rheumatoid arthritis Osteoarthritis Temporomandibular joint disorder No locking Migraine 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), on anticonvulsants Asthma Degenerative joint disease of right knee Diverticulitis Remote hx Surgical History History of cardioversion History of blepharoplasty S/P cholecystectomy History of colonoscopy History of esophageal dilatation History of vascular access device hx of Right IJ triple lumen central venous cath (2010), since removed History of cervical discectomy C5-C7 (2008) History of total hysterectomy with bilateral salpingo-oophorectomy (BSO) History of total right knee replacement (TKR) Right TKA (10/08/18): SAB at L3-L4 (x1 attempt) + PNB at [facility] History of total left knee replacement (TKR) History of esophagogastroduodenoscopy (EGD) History of tooth extraction History of cataract surgery R/L History of arthroplasty of left knee History of appendectomy Family History Other Family history non-contributory No family history of adverse response to anesthesia Denies family history of Ovarian cancer Prostate cancer Breast cancer Colorectal cancer Social History Smoking Status: Former smoker Second Hand Exposure: No; Do You Dip or Chew Tobacco: No; Hx Alcohol Use: No Hx Substance Use: No Preferred Language: Slovak Communication Ability: Effective Visual Impairment: No Limitations Hearing Ability: Hard of Hearing [employer]pe[employer] Required: No Beliefs That Will Affect Care: None marital status: Single Current Living Situation: Alone Current Living Situation Comment: lives in 1 floor apartment current occupational status: retired Feels Safe at Home: Yes Assistive Devices: Walker Physical Exam Psychiatric: Patient was alert and oriented x 2. She knew her birthdate. She knew where she was in was just off on the floor. She had no idea what the date was. She thought it was June 2002. She was disheveled in hospital attire in bed. Her eye contact was good. Her speech was normal. Her mood was described as sad but her affect was fairly bright. Thought process is goal-directed but concrete. There was no evidence of any hallucinations or delusions. She denied any suicidal or homicidal thoughts. Her memory was good she knew the president's name and the capital [facility]. Insight and judgment are poor. Vital Signs (Past 24 Hours): Last Vital Signs Temp 36.7 C 01/18/24 10:53 Pulse 84 01/18/24 10:53 Resp 18 01/18/24 10:53 BP 178/84 H 01/18/24 10:53 Pulse Ox 96 01/18/24 10:53 O2 Del Method Room Air 01/18/24 10:53 Results & Data (PSY) Laboratory Results This morning INR was 2.8. A CBC yesterday was normal. A CMP yesterday had a l ow potassium at 2.8 and glucose at 116. AST and ALT on January 10 were normal. Medications Administered Acetaminophen (Acetaminophen 325 Mg Tab) 650 mg PO QID DYANA Stop: 02/09/24 08:59 Last Admin: 01/18/24 09:24 Dose: 650 mg Documented By: Admin: 01/17/24 21:09 Dose: 650 mg Documented By: Admin: 01/17/24 16:36 Dose: 650 mg Documented By: Admin: 01/17/24 13:31 Dose: 650 mg Documented By: Admin: 01/17/24 08:00 Dose: 650 mg Documented By: Admin: 01/16/24 21:00 Dose: 650 mg Documented By: Admin: 01/16/24 17:12 Dose: 650 mg Documented By: Admin: 01/16/24 13:00 Dose: 650 mg Documented By: Admin: 01/16/24 08:50 Dose: 650 mg Documented By: Admin: 01/15/24 20:33 Dose: 650 mg Documented By: Admin: 01/15/24 18:39 Dose: 650 mg Documented By: Admin: 01/15/24 13:11 Dose: 650 mg Documented By: Admin: 01/15/24 08:59 Dose: 650 mg Documented By: Admin: 01/14/24 20:48 Dose: 650 mg Documented By: Admin: 01/14/24 17:59 Dose: 650 mg Documented By: Admin: 01/14/24 12:36 Dose: 650 mg Documented By: Admin: 01/14/24 08:24 Dose: 650 mg Documented By: Admin: 01/13/24 22:49 Dose: 650 mg Documented By: Admin: 01/13/24 16:11 Dose: 650 mg Documented By: Admin: 01/13/24 12:24 Dose: 650 mg Documented By: Admin: 01/13/24 10:06 Dose: 650 mg Documented By: Admin: 01/12/24 20:49 Dose: 650 mg Documented By: Admin: 01/12/24 17:10 Dose: 650 mg Documented By: Admin: 01/12/24 14:00 Dose: 650 mg Documented By: Admin: 01/12/24 08:38 Dose: 650 mg Documented By: Admin: 01/11/24 20:30 Dose: 650 mg Documented By: Admin: 01/11/24 18:14 Dose: 650 mg Documented By: Admin: 01/11/24 13:01 Dose: 650 mg Documented By: Admin: 01/11/24 09:33 Dose: 650 mg Documented By: Admin: 01/10/24 21:40 Dose: 650 mg Documented By: Admin: 01/10/24 17:52 Dose: 650 mg Documented By: Admin: 01/10/24 13:28 Dose: 650 mg Documented By: Admin: 01/10/24 09:52 Dose: 650 mg Documented By: LMS Famotidine (Famotidine 20 Mg Tab) 20 mg PO DAILY@0800 DYANA Stop: 02/07/24 07:59 Last Admin: 01/18/24 09:24 Dose: 20 mg Documented By: Admin: 01/17/24 08:02 Dose: 20 mg Documented By: MTAlysia Admin: 01/16/24 08:51 Dose: 20 mg Documented By: Admin: 01/15/24 09:01 Dose: 20 mg Documented By: Admin: 02/26/24 08:24 Dose: 20 mg Documented By: Admin: 01/13/24 10:06 Dose: 20 mg Documented By: Admin: 01/12/24 08:38 Dose: 20 mg Documented By: Admin: 01/11/24 07:36 Dose: 20 mg Documented By: Admin: 01/10/24 08:06 Dose: 20 mg Documented By: Admin: 01/09/24 07:59 Dose: 20 mg Documented By: Admin: 01/08/24 08:10 Dose: 20 mg Documented By: DOMINGO Lorazepam 0.5 mg/ Syringe 0.5 mls @ 2 mls/min IV HS PRN PRN Reason: Insomnia Stop: 02/07/24 00:52 Last Admin: 01/08/24 02:06 Dose: 2 mls/min Documented By: LAMONT Prochlorperazine 5 mg/ Syringe 5 mls @ 5 mls/min IV Q6H PRN PRN Reason: Nausea And Vomiting Stop: 02/11/24 18:23 Last Admin: 01/13/24 12:24 Dose: 5 mls/min Documented By: Admin: 01/12/24 20:47 Dose: 5 mls/min Documented By: ELLIS Melatonin (Melatonin 3 Mg Tab) 3 mg PO HS PRN PRN Reason: Sleep Stop: 02/11/24 22:33 Last Admin: 01/17/24 21:13 Dose: 3 mg Documented By: Admin: 01/16/24 21:06 Dose: 3 mg Documented By: Admin: 01/15/24 20:43 Dose: 3 mg Documented By: Admin: 01/14/24 20:48 Dose: 3 mg Documented By: Admin: 01/12/24 22:52 Dose: 3 mg Documented By: ELLIS Oxycodone HCl (Oxycodone Hcl Ir 5 Mg Tab (Immediate Release)) 5 mg PO Q6H PRN PRN Reason: Severe Pain (Scale 7, 8, 9,10) Stop: 01/24/24 08:34 Last Admin: 01/14/24 13:12 Dose: 5 mg Documented By: Admin: 01/13/24 22:49 Dose: 5 mg Documented By: Admin: 01/13/24 06:35 Dose: 5 mg Documented By: Admin: 01/12/24 18:31 Dose: 5 mg Documented By: Admin: 01/11/24 07:36 Dose: 5 mg Documented By: Admin: 01/10/24 17:52 Dose: 5 mg Documented By: Admin: 01/10/24 09:52 Dose: 5 mg Documented By: CJ Pantoprazole Sodium (Pantoprazole 40 Mg Tab) 40 mg PO QAM DYANA Stop: 02/10/24 18:44 Last Admin: 01/18/24 09:25 Dose: 40 mg Documented By: Admin: 01/17/24 08:00 Dose: 40 mg Documented By: Admin: 01/16/24 08:51 Dose: 40 mg Documented By: Admin: 01/15/24 09:01 Dose: 40 mg Documented By: Admin: 01/14/24 08:24 Dose: 40 mg Documented By: Admin: 01/13/24 10:06 Dose: 40 mg Documented By: Admin: 01/12/24 08:38 Dose: 40 mg Documented By: Admin: 01/11/24 20:31 Dose: 40 mg Documented By: ELLIS Sucralfate (Sucralfate 1 Gm/10 Ml Udc) 1 gm PO QID DYANA Stop: 02/10/24 20:59 Last Admin: 01/18/24 09:25 Dose: 1 gm Documented By: Admin: 01/17/24 21:09 Dose: 1 gm Documented By: Admin: 01/17/24 16:36 Dose: 1 gm Documented By: Admin: 01/17/24 13:31 Dose: 1 gm Documented By: Admin: 01/17/24 08:02 Dose: 1 gm Documented By: Admin: 01/16/24 21:00 Dose: 1 gm Documented By: Admin: 01/16/24 17:12 Dose: 1 gm Documented By: Admin: 01/16/24 13:00 Dose: 1 gm Documented By: Admin: 01/16/24 08:50 Dose: 1 gm Documented By: Admin: 01/15/24 21:40 Dose: 1 gm Documented By: Admin: 01/15/24 17:08 Dose: 1 gm Documented By: Admin: 01/15/24 13:15 Dose: 1 gm Documented By: Admin: 01/15/24 09:01 Dose: 1 gm Documented By: Admin: 01/14/24 20:49 Dose: 1 gm Documented By: Admin: 01/14/24 17:59 Dose: 1 gm Documented By: Admin: 01/14/24 12:36 Dose: 1 gm Documented By: Admin: 01/14/24 08:26 Dose: 1 gm Documented By: Admin: 01/13/24 22:49 Dose: 1 gm Documented By: Admin: 01/13/24 16:13 Dose: 1 gm Documented By: Admin: 01/13/24 16:11 Dose: 1 gm Documented By: Admin: 01/13/24 10:06 Dose: 1 gm Documented By: Admin: 01/12/24 20:49 Dose: 1 gm Documented By: Admin: 01/12/24 17:11 Dose: 1 gm Documented By: Admin: 01/12/24 14:00 Dose: 1 gm Documented By: Admin: 01/12/24 08:39 Dose: 1 gm Documented By: Admin: 01/11/24 20:30 Dose: 1 gm Documented By: ELLIS Tramadol HCl (Tramadol Hcl 50 Mg Tablet) 50 mg PO Q4H PRN PRN Reason: Moderate Pain (Scale 4, 5, 6) Stop: 02/09/24 08:35 Last Admin: 01/18/24 05:11 Dose: 50 mg Documented By: Admin: 01/14/24 20:48 Dose: 50 mg Documented By: Admin: 01/14/24 15:08 Dose: 50 mg Documented By: Admin: 01/12/24 20:47 Dose: 50 mg Documented By: Admin: 01/11/24 22:29 Dose: 50 mg Documented By: Admin: 01/11/24 15:14 Dose: 50 mg Documented By: Admin: 01/10/24 13:28 Dose: 50 mg Documented By: LMS Warfarin Sodium (Warfarin Sod 2.5 Mg Tab) 2.5 mg PO DAILY@1600 DYANA Stop: 02/13/24 15:59 Last Admin: 01/17/24 16:37 Dose: 2.5 mg Documented By: Admin: 01/15/24 16:15 Dose: 2.5 mg Documented By: Admin: 01/14/24 18:36 Dose: 2.5 mg Documented By: BCD Coding Level of Care Code 28592 [facility] Intl Hosp Care Lvl 2 Diagnoses Dementia F03.90
[2024-01-18 14:02] LABS: BUN Creatinine Ratio 13.3 (10-20); Calcium 9.4 mg/dl (8.6-10.3); Creatinine Clr Calc Pharmacy 88.8 ml/min; Est GFR (African American) 90.4 ml/min; Magnesium 1.8 mg/dl (1.7-2.4); Potassium 2.8 mmol/L (3.5-5.1)
[2024-01-18] MEDS: POTASSIUM CHLORIDE / WTR 10 MEQ/100 ML PLCT IV SCH (15:44)
[2024-01-18] MEDS: MAGNESIUM SULFATE / D5W 1 GM/100 ML BAG IV ONE (15:44)
[2024-01-18] MEDS: POTASSIUM CHLORIDE CRTAB 20 MEQ TABCR PO SCH (20:31)
[2024-01-19 07:16] LABS: Magnesium 1.9 mg/dl (1.7-2.4)
[2024-01-19 08:38] LABS: BUN Creatinine Ratio 10.4 (10-20); Creatinine Clr Calc Pharmacy 98.2 ml/min; Est GFR (African American) 99.7 ml/min
[2024-01-19] MEDS: DICLOFENAC SOD 1% GEL 100 GM TUBE EXT SCH (13:26)
--- NOTE | 2024-01-19 16:06 | Hospitalist Progress Note ---
Date of Service January 19, 2024 Assessment & Plan (1) VTE (venous thromboembolism): Plan: Pt presented with leg wounds and decline in function initial concern for metabolic encephalopathy due to infection of legs but found to have RLE DVT and multiple PE's started on therapeutic heparin parenterally reportedly was on home eliquis, seems RX may have been stopped early dec Due to obesity and elevated BMI, concern over restarting eliquis in the setting of an acute pulmonary emboli. Patient will be transitioned to coumadin., INR is 2.8 on 01/18/24 Presented to the ED via EMS; was reported by ED staff that a home health caregiver called 911 after noting her LE wounds -It does not appear that the patient has been able to care for herself and has some component of cognitive decline/dementia -PT/OT consults and consults management for assistance as she will likely need placement on discharge (2) Atrial fibrillation: Plan: - hx of afib presented in RVR , rate controlled and on coumadin -initial hypokalemia replete (3) Pressure ulcer: Plan: -Patient with multiple, chronic-appearing pressure ulcers on the posterior left thigh and sacrum these are healed resolved (4) Hip pain, right: Plan: -Patient expresses severe right hip pain -X ray eval is without fracture ortho consult feels that pain is secondary to OA (5) Elevated bilirubin: Plan: -Total bili elevated at 1.8 ? [place] liver us shows some changes in the gall bladder fossa, but no dilated Hepatic ducts (6) Dementia: Plan: -Last PCP note listed concerns for dementia -No focal neuro defects on exam -Fall/aspiration precautions ordered -directly impacts ability to care for self Patient has intermittent confusion during her hospital stay. Patient continues to ask if she can go home Psychaitric evaluation Dr Rebollar " I do not feel the patient is able to make decisions about her health care. She is not oriented anywhere close to the correct time. She does not seem to understand what her issues are and does not believe them. She does not understand exactly what the team is recommending regarding treatment. She also does not seem to understand the risks and benefits of not having that treatment and just going home." Admission and Anticipated Discharge Date Admission Date: January 07, 2024 Subjective pt cannot remember meeting me in the past she was seen by psychiatry and felt that she cannot make informed decisions about her health as she is not aware of consequences she has no contractible next of kin at present still wants to go home, but has no caregivers Physical Exam Physical Exam: pt has great improvement in legs, she has persistent chronic venous stasis changes she is not oriented to place or time cardiac is regular lungs are clear Results & Data Results & Data Vital Signs (Past 12 Hours) Vital Signs Temp Pulse Resp BP Pulse Ox O2 Del Method 01/19/24 11:38 98.2 F 50 L 18 139/68 96 Room Air 01/19/24 07:55 97.9 F 79 18 151/79 H 97 Room Air 01/19/24 07:38 Room Air Laboratory Results review chemistry ordered augmented potassium PG Care Time/CCT Total # of Minutes Spent Total Time Spent with Patient: Total time spent is greater than 50% in coordination of care (as documented) at patient's floor/unit and/or counseling patient: Coding Level of Care Code 39308 SUB INP/OBS CARE 2/35MIN Diagnoses VTE (venous thromboembolism) I82.90 Chronic atrial fibrillation I48.2 Atrial fibrillation type: chronic Pressure ulcer L89.90 Hip pain, right M25.551 Elevated bilirubin R17 Dementia F03.90 (2) Atrial fibrillation Atrial fibrillation type: chronic Qualified Code(s): I48.2 - Chronic atrial fibrillation
[2024-01-19] MEDS: POTASSIUM CHLORIDE / WTR 10 MEQ/100 ML PLCT IV SCH (17:17)
[2024-01-19] MEDS: DOCUSATE SODIUM 100 MG CAP PO SCH (20:55)
[2024-01-20 07:52] LABS: INR 3.6 (0.9-1.1); Prothrombin Time 36.4 Seconds (9.0-12.0)
--- NOTE | 2024-01-20 10:48 | XRay Report ---
XR chest 2V PA/lateral HISTORY: 74 years-old Female L basilar exam change, sob acute shortness of breath COMPARISON: CTA chest 01/08/2024 TECHNIQUE: AP and lateral views of the chest FINDINGS: Cardiac silhouette is enlarged. Surgical clips project over the upper abdomen. Moderate-sized hiatal hernia. Pulmonary vascular congestion. No pneumothorax. Small left pleural effusion redemonstrated wi th mild left basilar densities. Cervical spinal fusion hardware. Bones appear grossly intact. IMPRESSION: 1. Cardiomegaly with pulmonary vascular congestion. 2. Unchanged small left pleural effusion with mild left basilar opacities. 3. Hiatal hernia. ACT 112: Negative or not required by law. The above report was generated using voice recognition software. It may contain grammatical, syntax o r spelling errors. Electronically signed by: Kody Paulino M.D. 01/20/2024 10:47 AM
[2024-01-20] MEDS: ALBUTEROL HFA 8 GM INHALER INH PRN (15:44)
--- NOTE | 2024-01-20 16:51 | Hospitalist Progress Note ---
Date of Service January 20, 2024 Assessment & Plan (1) VTE (venous thromboembolism): Plan: Pt presented with leg wounds and decline in function initial concern for metabolic encephalopathy due to infection of legs but found to have RLE DVT and multiple PE's started on therapeutic heparin parenterally reportedly was on home eliquis, seems RX may have been stopped early dec Due to obesity and elevated BMI, concern over restarting eliquis in the setting of an acute pulmonary emboli. Patient will be transitioned to coumadin., inr is elevated and coumadin are on hold Presented to the ED via EMS; was reported by ED staff that a home health caregiver called 911 after noting her LE wounds -It does not appear that the patient has been able to care for herself and has some component of cognitive decline/dementia -PT/OT consults and consults management for assistance as she will likely need placement on discharge (2) Atrial fibrillation: Plan: - hx of afib presented in RVR , rate controlled and on coumadin -initial hypokalemia replete (3) Pressure ulcer: Plan: -Patient with multiple, chronic-appearing pressure ulcers on the posterior left thigh and sacrum these are healed resolved (4) Hip pain, right: Plan: -Patient expresses severe right hip pain -X ray eval is without fracture ortho consult feels that pain is secondary to OA (5) Elevated bilirubin: Plan: -Total bili elevated at 1.8 ? [facility] us shows some changes in the gall bladder fossa, but no dilated Hepatic ducts (6) Dementia: Plan: -Last PCP note listed concerns for dementia -No focal neuro defects on exam -Fall/aspiration precautions ordered -directly impacts ability to care for self Patient has intermittent confusion during her hospital stay. Patient continues to ask if she can go home Psychaitric evaluation Dr Rebollar " I do not feel the patient is able to make decisions about her health care. She is not oriented anywhere close to the correct time. She does not seem to understand what her issues are and does not believe them. She does not understand exactly what the team is recommending regarding treatment. She also does not seem to understand the risks and benefits of not having that treatment and just going home." Admission and Anticipated Discharge Date Admission Date: January 07, 2024 Subjective pt cannot remember meeting me in the past she was seen by psychiatry and felt that she cannot make informed decisions about her health as she is not aware of consequences she has no contractible next of kin at present still wants to go home, but has no caregivers Physical Exam Physical Exam: pt has great improvement in legs, she has persistent chronic venous stasis changes she is not oriented to place or time cardiac is regular lungs are clear Results & Data Results & Data Vital Signs (Past 12 Hours) Vital Signs Temp Pulse Resp BP Pulse Ox O2 Del Method 01/20/24 15:44 71 18 100 Room Air 01/20/24 14:30 98.2 F 71 17 147/81 H 98 Room Air 01/20/24 11:09 Room Air 01/20/24 08:11 97.7 F 69 16 138/54 L 97 Room Air Laboratory Results checked cxr restarted lasix PG Care Time/CCT Total # of Minutes Spent Total Time Spent with Patient: Total time spent is greater than 50% in coordination of care (as documented) at patient's floor/unit and/or counseling patient: Coding Level of Care Code 79010 SUB INP/OBS CARE 2/35MIN Diagnoses VTE (venous thromboembolism) I82.90 Chronic atrial fibrillation I48.2 Atrial fibrillation type: chronic Pressure ulcer L89.90 Hip pain, right M25.551 Elevated bilirubin R17 Dementia F03.90 (2) Atrial fibrillation Atrial fibrillation type: chronic Qualified Code(s): I48.2 - Chronic atrial fibrillation
[2024-01-20] MEDS: FUROSEMIDE 40 MG TAB PO SCH (16:58)
[2024-01-20] MEDS: FAMOTIDINE 10 MG TABLET PO ONE (20:03)
[2024-01-21] MEDS ORDERED: CIPROFLOXACIN 250 MG TAB PO SCH (07:45)
[2024-01-21] MEDS: AMOXICILLIN 875 MG TAB PO SCH (09:04)
--- NOTE | 2024-01-21 18:07 | Hospitalist Progress Note ---
Date of Service January 21, 2024 Assessment & Plan (1) VTE (venous thromboembolism): Plan: Pt presented with leg wounds and decline in function initial concern for metabolic encephalopathy due to infection of legs but found to have RLE DVT and multiple PE's started on therapeutic heparin parenterally reportedly was on home eliquis, seems RX may have been stopped early dec Due to obesity and elevated BMI, concern over restarting eliquis in the setting of an acute pulmonary emboli. Patient will be transitioned to coumadin., inr is elevated and coumadin are on hold Presented to the ED via EMS; was reported by ED staff that a home health caregiver called 911 after noting her LE wounds -It does not appear that the patient has been able to care for herself and has some component of cognitive decline/dementia -PT/OT consults and consults management for assistance as she will likely need placement on discharge (2) Atrial fibrillation: Plan: - hx of afib presented in RVR , rate controlled and on coumadin -initial hypokalemia replete (3) Pressure ulcer: Plan: -Patient with multiple, chronic-appearing pressure ulcers on the posterior left thigh and sacrum these are healed resolved (4) Hip pain, right: Plan: -Patient expresses severe right hip pain -X ray eval is without fracture ortho consult feels that pain is secondary to OA (5) Elevated bilirubin: Plan: -Total bili elevated at 1.8 ? [place] [facility] us shows some changes in the gall bladder fossa, but no dilated Hepatic ducts (6) Dementia: Plan: -Last PCP note listed concerns for dementia -No focal neuro defects on exam -Fall/aspiration precautions ordered -directly impacts ability to care for self Patient has intermittent confusion during her hospital stay. Patient continues to ask if she can go home Psychaitric evaluation Dr Rebollar " I do not feel the patient is able to make decisions about her health care. She is not oriented anywhere close to the correct time. She does not seem to understand what her issues are and does not believe them. She does not understand exactly what the team is recommending regarding treatment. She also does not seem to understand the risks and benefits of not having that treatment and just going home." Plan chronic diastolic heart failure restarting home lasix Admission and Anticipated Discharge Date Admission Date: January 07, 2024 Subjective pt wants to go home, has been deemed unable to make medical decisions based on psychiatry eval she has no contractible next of kin at present still wants to go home, but has no caregivers Physical Exam Physical Exam: pt has great improvement in legs, she has persistent chronic venous stasis changes she is not oriented to place or time cardiac is regular lungs mildly diminished will restart Lasix Results & Data Results & Data Vital Signs (Past 12 Hours) Vital Signs Temp Pulse Pulse Resp BP Pulse Ox O2 Del Method 01/21/24 15:39 98.1 F 89 16 127/93 96 Room Air 01/21/24 11:55 98.4 F 98 H 17 138/79 99 Room Air 01/21/24 07:11 98.1 F 65 16 135/76 97 Room Air PG Care Time/CCT Total # of Minutes Spent Total Time Spent with Patient: Total time spent is greater than 50% in coordination of care (as documented) at patient's floor/unit and/or counseling patient: Coding Level of Care Code 10350 SUB INP/OBS CARE 2/35MIN Diagnoses VTE (venous thromboembolism) I82.90 Chronic atrial fibrillation I48.2 Atrial fibrillation type: chronic Pressure ulcer L89.90 Hip pain, right M25.551 Elevated bilirubin R17 Dementia F03.90 (2) Atrial fibrillation Atrial fibrillation type: chronic Qualified Code(s): I48.2 - Chronic atrial fibrillation
[2024-01-22] MEDS: ONDANSETRON INJ 2 MG/ML 2 ML VIAL IV ONE (04:02)
[2024-01-22] MEDS: ACETAMINOPHEN 1,000 MG/100 ML VIAL IV ONE (04:02)
[2024-01-22] MEDS: POTASSIUM CHLORIDE CRTAB 20 MEQ TABCR PO SCH (08:55)
[2024-01-22 09:31] LABS: INR 2.1 (0.9-1.1); Prothrombin Time 22.3 Seconds (9.0-12.0)
[2024-01-22] MEDS: ACETAMINOPHEN 500 MG TAB PO SCH (14:05)
--- NOTE | 2024-01-22 16:41 | Hospitalist Progress Note ---
Date of Service January 22, 2024 Assessment & Plan (1) VTE (venous thromboembolism): Plan: Pt presented with leg wounds and decline in function initial concern for metabolic encephalopathy due to infection of legs but found to have RLE DVT and multiple PE's started on therapeutic heparin parenterally reportedly was on home eliquis, seems RX may have been stopped early dec Due to obesity and elevated BMI, concern over restarting eliquis in the setting of an acute pulmonary emboli. Patient will be transitioned to coumadin., inr now normal range restart Coumadin therapy Presented to the ED via EMS; was reported by ED staff that a home health caregiver called 911 after noting her LE wounds -It does not appear that the patient has been able to care for herself and has some component of cognitive decline/dementia -PT/OT consults and consults management for assistance as she will likely need placement on discharge (2) Atrial fibrillation: Plan: - hx of afib presented in RVR , rate controlled and on coumadin -initial hypokalemia replete (3) Pressure ulcer: Plan: -Patient with multiple, chronic-appearing pressure ulcers on the posterior left thigh and sacrum these are healed resolved (4) Hip pain, right: Plan: -Patient expresses severe right hip pain -X ray eval is without fracture ortho consult feels that pain is secondary to OA (5) Elevated bilirubin: Plan: -Total bili elevated at 1.8 ? [facility] us shows some changes in the gall bladder fossa, but no dilated Hepatic ducts (6) Dementia: Plan: -Last PCP note listed concerns for dementia -No focal neuro defects on exam -Fall/aspiration precautions ordered -directly impacts ability to care for self Patient has intermittent confusion during her hospital stay. Patient continues to ask if she can go home Psychaitric evaluation Dr Rebollar " I do not feel the patient is able to make decisions about her health care. She is not oriented anywhere close to the correct time. She does not seem to understand what her issues are and does not believe them. She does not understand exactly what the team is recommending regarding treatment. She also does not seem to understand the risks and benefits of not having that treatment and just going home." Plan chronic diastolic heart failure restarting home lasix Admission and Anticipated Discharge Date Admission Date: January 07, 2024 Subjective pt wants to go home, has been deemed unable to make medical decisions based on psychiatry eval she has no contractible next of kin at present still wants to go home, but has no caregivers Physical Exam Physical Exam: pt has great improvement in legs, she has persistent chronic venous stasis changes she is not oriented to place or time cardiac is regular lungs improved after restart Lasix Results & Data Results & Data Vital Signs (Past 12 Hours) Vital Signs Temp Pulse Resp BP Pulse Ox O2 Del Method 01/22/24 15:14 97.7 F 77 16 120/73 96 Room Air 01/22/24 06:22 98.1 F 78 16 127/76 95 Room Air PG Care Time/CCT Total # of Minutes Spent Total Time Spent with Patient: Total time spent is greater than 50% in coordination of care (as documented) at patient's floor/unit and/or counseling patient: Coding Level of Care Code 12740 SUB INP/OBS CARE 2/35MIN Diagnoses VTE (venous thromboembolism) I82.90 Chronic atrial fibrillation I48.2 Atrial fibrillation type: chronic Pressure ulcer L89.90 Hip pain, right M25.551 Elevated bilirubin R17 Dementia F03.90 (2) Atrial fibrillation Atrial fibrillation type: chronic Qualified Code(s): I48.2 - Chronic atrial fibrillation
[2024-01-22] MEDS: WARFARIN SOD 2 MG TAB PO SCH (16:57)
[2024-01-23] MEDS: CALCIUM CARBONATE 500 MG CHEWABLE TAB PO ONE (03:47)
[2024-01-23] MEDS: CALCIUM CARBONATE 500 MG CHEWABLE TAB ONE (03:48)
[2024-01-23 07:45] LABS: Magnesium 1.6 mg/dl (1.7-2.4); Potassium 3.2 mmol/L (3.5-5.1)
[2024-01-23 07:51] LABS: BUN Creatinine Ratio 9.2 (10-20); Creatinine Clr Calc Pharmacy 86.6 ml/min; Est GFR (African American) 88.9 ml/min; Est GFR (Non-African American) 76.7 ml/min
[2024-01-23 08:16] LABS: Prothrombin Time 20.9 Seconds (9.0-12.0)
[2024-01-23] MEDS ORDERED: oxyCODONE HCL IR 5 MG TAB (IMMEDIATE RELEASE) PO PRN (15:37)
--- NOTE | 2024-01-23 15:42 | Hospitalist Progress Note ---
Date of Service January 23, 2024 Assessment & Plan (1) VTE (venous thromboembolism): Plan: Pt presented with leg wounds and decline in function initial concern for metabolic encephalopathy due to infection of legs but found to have RLE DVT and multiple PE's started on therapeutic heparin parenterally reportedly was on home eliquis, seems RX may have been stopped early dec Due to obesity and elevated BMI, concern over restarting eliquis in the setting of an acute pulmonary emboli. Patient will be transitioned to coumadin., inr now normal range restarted Coumadin therapy Presented to the ED via EMS; was reported by ED staff that a home health caregiver called 911 after noting her LE wounds -It does not appear that the patient has been able to care for herself and has some component of cognitive decline/dementia -PT/OT consults and consults management for assistance as she will likely need placement on discharge (2) Atrial fibrillation: Plan: - hx of afib presented in RVR , rate controlled and on coumadin -Residual hypokalemia replete especially with restarting diuretics, magnesium also low this will be replete (3) Pressure ulcer: Plan: -Patient with multiple, chronic-appearing pressure ulcers on the posterior left thigh and sacrum these are healed resolved (4) Hip pain, right: Plan: -Patient expresses severe right hip pain -X ray eval is without fracture ortho consult feels that pain is secondary to OA He now in the SI joint area. On scheduled Tylenol will increase oxycodone add Lidoderm patch (5) Elevated bilirubin: Plan: -Total bili elevated at 1.8 ? [place] liver us shows some changes in the gall bladder fossa, but no dilated Hepatic ducts (6) Dementia: Plan: -Last PCP note listed concerns for dementia -No focal neuro defects on exam -Fall/aspiration precautions ordered -directly impacts ability to care for self Patient has intermittent confusion during her hospital stay. Patient continues to ask if she can go home Psychaitric evaluation Dr Rebollar " I do not feel the patient is able to make decisions about her health care. She is not oriented anywhere close to the correct time. She does not seem to understand what her issues are and does not believe them. She does not understand exactly what the team is recommending regarding treatment. She also does not seem to understand the risks and benefits of not having that treatment and just going home." Plan chronic diastolic heart failure restarting home lasix Admission and Anticipated Discharge Date Admission Date: January 07, 2024 Subjective pt wants to go home, has been deemed unable to make medical decisions based on psychiatry eval now did find niece and looking at [facility] and sn[facility] in [facility] 01/22 complains of right hip pain, this on exam is the SI joint area Physical Exam Physical Exam: pt has great improvement in legs, she has persistent chronic venous stasis changes she is not oriented to place or time cardiac is regular lungs improved after restart Lasix tenderness at right SI area, not radicular no loss of strength Results & Data Results & Data Vital Signs (Past 12 Hours) Vital Signs Temp Pulse Resp BP BP Pulse Ox O2 Del Method 01/23/24 15:18 97.9 F 85 16 126/83 95 Room Air 01/23/24 07:42 97.9 F 70 16 135/70 97 Room Air Laboratory Results Reviewed INR reviewed chemistry PG Care Time/CCT Total # of Minutes Spent Total Time Spent with Patient: Total time spent is greater than 50% in coordination of care (as documented) at patient's floor/unit and/or counseling patient: Coding Level of Care Code 35416 SUB INP/OBS CARE 3/50MIN Diagnoses VTE (venous thromboembolism) I82.90 Chronic atrial fibrillation I48.2 Atrial fibrillation type: chronic Pressure ulcer L89.90 Hip pain, right M25.551 Elevated bilirubin R17 Dementia F03.90 (2) Atrial fibrillation Atrial fibrillation type: chronic Qualified Code(s): I48.2 - Chronic atrial fibrillation
[2024-01-23] MEDS: MAGNESIUM SULFATE / D5W 1 GM/100 ML BAG IV SCH (17:13)
[2024-01-23] MEDS: LIDOCAINE 5% 1 PATCH TD STA (17:16)
[2024-01-23] MEDS: POTASSIUM CHLORIDE CRTAB 20 MEQ TABCR PO SCH (21:29)
[2024-01-24 07:52] LABS: Hematocrit (blood only) 37.9 % (37.0-47.0); Hemoglobin 12.6 g/dl (12.0-16.0); Mean Corpuscular Hemoglobin 27.5 pg (25.0-34.0); Mean Corpuscular Hgb Conc 33.2 g/dL (32.0-36.0); Mean Corpuscular Volume 82.6 fL (80.0-100.0); Mean Platelet Volume 10.9 fL (9.4-12.4); Platelet Count 218 K/uL (130-400); RDW Coefficient of Variation 16.3 % (11.5-14.5); RDW Standard Deviation 48.3 fL (36.4-46.3); Red Blood Count 4.59 M/uL (4.20-5.40); White Blood Count 6.59 K/ul (4.8-10.8)
[2024-01-24] MEDS: DOCUSATE SODIUM/SENNA 50/8.6MG TAB PO SCH (08:05)
[2024-01-24 08:13] LABS: INR 2.3 (0.9-1.1); Prothrombin Time 24.3 Seconds (9.0-12.0)
[2024-01-24 08:18] LABS: BUN Creatinine Ratio 8.8 (10-20); Calcium 8.9 mg/dl (8.6-10.3); Creatinine Clr Calc Pharmacy 82.3 ml/min; Est GFR (African American) 83.6 ml/min; Est GFR (Non-African American) 72.1 ml/min; Magnesium 1.9 mg/dl (1.7-2.4); Potassium 3.5 mmol/L (3.5-5.1)
[2024-01-24] MEDS: LIDOCAINE 5% 1 PATCH TD SCH (09:24)
--- NOTE | 2024-01-24 16:27 | Hospitalist Progress Note ---
Date of Service January 24, 2024 Assessment & Plan (1) VTE (venous thromboembolism): Plan: Pt presented with leg wounds and decline in function initial concern for metabolic encephalopathy due to infection of legs but found to have RLE DVT and multiple PE's started on therapeutic heparin parenterally reportedly was on home eliquis, seems RX may have been stopped early dec Due to obesity and elevated BMI, concern over restarting eliquis in the setting of an acute pulmonary emboli. Patient will be transitioned to coumadin., inr now normal range restarted Coumadin therapy Presented to the ED via EMS; was reported by ED staff that a home health caregiver called 911 after noting her LE wounds -It does not appear that the patient has been able to care for herself and has some component of cognitive decline/dementia -PT/OT consults and consults management for assistance as she will likely need placement on discharge (2) Atrial fibrillation: Plan: - hx of afib presented in RVR , rate controlled and on coumadin -Residual hypokalemia replete especially with restarting diuretics, magnesium also low this will be replete chronic diastolic heartfailure managed by lasix, did have some symptomatic low bp, will reduce lasix and follow daily weights (3) Pressure ulcer: Plan: -Patient with multiple, chronic-appearing pressure ulcers on the posterior left thigh and sacrum these are healed resolved (4) Hip pain, right: Plan: -Patient expresses severe right hip pain -X ray eval is without fracture ortho consult feels that pain is secondary to OA He now in the SI joint area. On scheduled Tylenol will increase oxycodone add Lidoderm patch (5) Elevated bilirubin: Plan: -Total bili elevated at 1.8 ? [facility] us shows some changes in the gall bladder fossa, but no dilated Hepatic ducts (6) Dementia: Plan: -Last PCP note listed concerns for dementia -No focal neuro defects on exam -Fall/aspiration precautions ordered -directly impacts ability to care for self Patient has intermittent confusion during her hospital stay. Patient continues to ask if she can go home Psychaitric evaluation Dr Rebollar " I do not feel the patient is able to make decisions about her health care. She is not oriented anywhere close to the correct time. She does not seem to understand what her issues are and does not believe them. She does not understand exactly what the team is recommending regarding treatment. She also does not seem to understand the risks and benefits of not having that treatment and just going home." Admission and Anticipated Discharge Date Admission Date: January 07, 2024 Subjective pt wants to go home, has been deemed unable to make medical decisions based on psychiatry [place] now did find niece and looking at [facility] and sn[facility] in [facility] 01/22 complains of right hip pain, this on exam is the SI joint area Physical Exam Physical Exam: pt has great improvement in legs, she has persistent chronic venous stasis changes did have some orthostatic issues, reduce lasix check daily weights she is not oriented to place or time cardiac is regular lungs improved after restart Lasix tenderness at right SI area, not radicular no loss of strength Results & Data Results & Data Vital Signs (Past 12 Hours) Vital Signs Temp Pulse Resp BP Pulse Ox O2 Del Method 01/24/24 15:15 98.2 F 62 16 112/67 96 Room Air 01/24/24 12:58 81 128/84 96 Room Air 01/24/24 12:55 89 94/73 L 96 Room Air 01/24/24 08:03 97.7 F 79 18 139/84 94 Room Air 01/24/24 07:52 Room Air Laboratory Results reviewed cbc reviewed chemsitry PG Care Time/CCT Total # of Minutes Spent Total Time Spent with Patient: Total time spent is greater than 50% in coordination of care (as documented) at patient's floor/unit and/or counseling patient: Coding Level of Care Code 43708 SUB INP/OBS CARE 2/35MIN Diagnoses VTE (venous thromboembolism) I82.90 Chronic atrial fibrillation I48.2 Atrial fibrillation type: chronic Pressure ulcer L89.90 Hip pain, right M25.551 Elevated bilirubin R17 Dementia F03.90 (2) Atrial fibrillation Atrial fibrillation type: chronic Qualified Code(s): I48.2 - Chronic atrial fibrillation
[2024-01-25 08:59] LABS: BUN Creatinine Ratio 8.9 (10-20); Calcium 8.8 mg/dl (8.6-10.3); Creatinine Clr Calc Pharmacy 83.2 ml/min; Est GFR (African American) 84.9 ml/min; Est GFR (Non-African American) 73.2 ml/min; Magnesium 1.7 mg/dl (1.7-2.4); Potassium 3.9 mmol/L (3.5-5.1)
[2024-01-25 09:12] LABS: INR 2.6 (0.9-1.1); Prothrombin Time 26.9 Seconds (9.0-12.0)
--- NOTE | 2024-01-25 16:45 | Hospitalist Progress Note ---
Date of Service January 25, 2024 Assessment & Plan (1) VTE (venous thromboembolism): Plan: Pt presented with leg wounds and decline in function initial concern for metabolic encephalopathy due to infection of legs but found to have RLE DVT and multiple PE's started on therapeutic heparin parenterally reportedly was on home eliquis, seems RX may have been stopped early dec Due to obesity and elevated BMI, concern over restarting eliquis in the setting of an acute pulmonary emboli. coumadin., inr now normal range Presented to the ED via EMS; was reported by ED staff that a home health caregiver called 911 after noting her LE wounds -It does not appear that the patient has been able to care for herself and has some component of cognitive decline/dementia -PT/OT consults and consults management for assistance as she will likely need placement on discharge (2) Atrial fibrillation: Plan: - hx of afib presented in RVR , rate controlled and on coumadin -Residual hypokalemia replete especially with restarting diuretics, magnesium also low this will be replete chronic diastolic heartfailure managed by lasix, did have some symptomatic low bp, will reduce lasix and follow daily weights (3) Pressure ulcer: Plan: -Patient with multiple, chronic-appearing pressure ulcers on the posterior left thigh and sacrum these are healed resolved (4) Hip pain, right: Plan: -Patient expresses severe right hip pain -X ray eval is without fracture ortho consult feels that pain is secondary to OA He now in the SI joint area. On scheduled Tylenol will increase oxycodone add Lidoderm patch (5) Elevated bilirubin: Plan: -Total bili elevated at 1.8 ? [place] liver us shows some changes in the gall bladder fossa, but no dilated Hepatic ducts (6) Dementia: Plan: -Last PCP note listed concerns for dementia -No focal neuro defects on exam -Fall/aspiration precautions ordered -directly impacts ability to care for self Patient has intermittent confusion during her hospital stay. Patient continues to ask if she can go home Psychaitric evaluation Dr Rebollar " I do not feel the patient is able to make decisions about her health care. She is not oriented anywhere close to the correct time. She does not seem to understand what her issues are and does not believe them. She does not understand exactly what the team is recommending regarding treatment. She also does not seem to understand the risks and benefits of not having that treatment and just going home." Admission and Anticipated Discharge Date Admission Date: January 07, 2024 Subjective pt wants to go home, has been deemed unable to make medical decisions based on psychiatry eval now a niece in [place] trying to find pch or snf in [facility] hip pain improved Physical Exam Physical Exam: pt has great improvement in legs, she has persistent chronic venous stasis changes did have some orthostatic issues, reduce lasix check daily weights she is not oriented to place or time cardiac is regular lungs improved after restart Lasix tenderness at right SI area, not radicular no loss of strength Results & Data Results & Data Vital Signs (Past 12 Hours) Vital Signs Temp Pulse Resp BP Pulse Ox O2 Del Method 01/25/24 08:32 Room Air 01/25/24 07:29 98.2 F 59 L 16 124/64 96 Room Air Laboratory Results reviewed INR reviewed chemistry PG Care Time/CCT Total # of Minutes Spent Total Time Spent with Patient: Total time spent is greater than 50% in coordination of care (as documented) at patient's floor/unit and/or counseling patient: Coding Level of Care Code 26955 SUB INP/OBS CARE 235MIN Diagnoses VTE (venous thromboembolism) I82.90 Chronic atrial fibrillation I48.2 Atrial fibrillation type: chronic Pressure ulcer L89.90 Hip pain, right M25.551 Elevated bilirubin R17 Dementia F03.90 (2) Atrial fibrillation Atrial fibrillation type: chronic Qualified Code(s): I48.2 - Chronic atrial fibrillation
[2024-01-26 06:58] LABS: Hematocrit (blood only) 39.7 % (37.0-47.0); Mean Corpuscular Hemoglobin 27.6 pg (25.0-34.0); Mean Corpuscular Hgb Conc 32.7 g/dL (32.0-36.0); Mean Corpuscular Volume 84.3 fL (80.0-100.0); Mean Platelet Volume 11.3 fL (9.4-12.4); Platelet Count 202 K/uL (130-400); RDW Coefficient of Variation 16.6 % (11.5-14.5); RDW Standard Deviation 50.4 fL (36.4-46.3); Red Blood Count 4.71 M/uL (4.20-5.40); White Blood Count 5.25 K/ul (4.8-10.8)
[2024-01-26 07:21] LABS: INR 2.9 (0.9-1.1); Prothrombin Time 29.3 Seconds (9.0-12.0)
[2024-01-26 07:22] LABS: BUN Creatinine Ratio 7.7 (10-20); Calcium 8.7 mg/dl (8.6-10.3); Est GFR (African American) 86.2 ml/min; Est GFR (Non-African American) 74.4 ml/min
[2024-01-26] MEDS: FUROSEMIDE 20 MG TAB PO SCH (08:57)
--- NOTE | 2024-01-26 16:14 | Hospitalist Progress Note ---
Date of Service January 26, 2024 Assessment & Plan (1) VTE (venous thromboembolism): Plan: Pt presented with leg wounds and decline in function initial concern for metabolic encephalopathy due to infection of legs but found to have RLE DVT and multiple PE's started on therapeutic heparin parenterally reportedly was on home eliquis, seems RX may have been stopped early dec Due to obesity and elevated BMI, concern over restarting eliquis in the setting of an acute pulmonary emboli. coumadin., inr now therapeutic range Presented to the ED via EMS; was reported by ED staff that a home health caregiver called 911 after noting her LE wounds -It does not appear that the patient has been able to care for herself and has some component of cognitive decline/dementia -PT/OT consults and consults management for assistance as she will likely need placement on discharge. (2) Atrial fibrillation: Plan: - hx of afib presented in RVR , rate controlled and on coumadin -Residual hypokalemia replete especially with restarting diuretics, magnesium also low this will be replete chronic diastolic heartfailure managed by lasix, did have some symptomatic low bp, will reduce lasix and follow daily weights (3) Pressure ulcer: Plan: -Patient with multiple, chronic-appearing pressure ulcers on the posterior left thigh and sacrum these are healed resolved (4) Hip pain, right: Plan: -Patient expresses severe right hip pain -X ray eval is without fracture ortho consult feels that pain is secondary to OA He now in the SI joint area. On scheduled Tylenol will increase oxycodone add Lidoderm patch (5) Elevated bilirubin: Plan: -Total bili elevated at 1.8 ? [facility] us shows some changes in the gall bladder fossa, but no dilated Hepatic ducts (6) Dementia: Plan: -Last PCP note listed concerns for dementia -No focal neuro defects on exam -Fall/aspiration precautions ordered -directly impacts ability to care for self Patient has intermittent confusion during her hospital stay. Patient continues to ask if she can go home Psychaitric evaluation Dr Rebollar " I do not feel the patient is able to make decisions about her health care. She is not oriented anywhere close to the correct time. She does not seem to understand what her issues are and does not believe them. She does not understand exactly what the team is recommending regarding treatment. She also does not seem to understand the risks and benefits of not having that treatment and just going home." Admission and Anticipated Discharge Date Admission Date: January 07, 2024 Subjective No new changes. Patient wants to go home. Review of Systems Review of Systems: Unobtainable due to cognitive status Physical Exam Physical Exam: pt has persistent chronic venous stasis changes did have some orthostatic issues, reduce lasix check daily weights she is not oriented to place or time cardiac is regular lungs improved after restart Lasix tenderness at right SI area, not radicular no loss of strength Results & Data Results & Data Vital Signs (Past 12 Hours) Vital Signs Temp Pulse Resp BP Pulse Ox O2 Del Method 01/26/24 07:40 36.8 C 84 18 137/72 97 Room Air PG Care Time/CCT Total # of Minutes Spent Total Time Spent with Patient: Total time spent is greater than 50% in coordination of care (as documented) at patient's floor/unit and/or counseling patient: Coding Level of Care Code 86510 SUB INP/OBS CARE 2/35MIN Diagnoses VTE (venous thromboembolism) I82.90 Chronic atrial fibrillation I48.2 Atrial fibrillation type: chronic Pressure ulcer L89.90 Hip pain, right M25.551 Elevated bilirubin R17 Dementia F03.90 Time Spent (min) 35 (2) Atrial fibrillation Atrial fibrillation type: chronic Qualified Code(s): I48.2 - Chronic atrial fibrillation
--- NOTE | 2024-01-27 18:40 | Hospitalist Progress Note ---
Date of Service January 27, 2024 Assessment & Plan (1) VTE (venous thromboembolism): Plan: Pt presented with leg wounds and decline in function initial concern for metabolic encephalopathy due to infection of legs but found to have RLE DVT and multiple PE's started on therapeutic heparin parenterally reportedly was on home eliquis, seems RX may have been stopped early dec Due to obesity and elevated BMI, concern over restarting eliquis in the setting of an acute pulmonary emboli. coumadin., inr now therapeutic range Presented to the ED via EMS; was reported by ED staff that a home health caregiver called 911 after noting her LE wounds -It does not appear that the patient has been able to care for herself and has some component of cognitive decline/dementia -PT/OT consults and consults management for assistance as she will likely need placement on discharge. (2) Atrial fibrillation: Plan: - hx of afib presented in RVR , rate controlled and on coumadin -Residual hypokalemia replete especially with restarting diuretics, magnesium also low this will be replete chronic diastolic heartfailure managed by lasix, did have some symptomatic low bp, will reduce lasix and follow daily weights (3) Pressure ulcer: Plan: -Patient with multiple, chronic-appearing pressure ulcers on the posterior left thigh and sacrum these are healed resolved (4) Hip pain, right: Plan: -Patient expresses severe right hip pain -X ray eval is without fracture ortho consult feels that pain is secondary to OA He now in the SI joint area. On scheduled Tylenol will increase oxycodone add Lidoderm patch (5) Elevated bilirubin: Plan: -Total bili elevated at 1.8 ? [place] [facility] us shows some changes in the gall bladder fossa, but no dilated Hepatic ducts (6) Dementia: Plan: -Last PCP note listed concerns for dementia -No focal neuro defects on exam -Fall/aspiration precautions ordered -directly impacts ability to care for self Patient has intermittent confusion during her hospital stay. Patient continues to ask if she can go home Psychaitric evaluation Dr Rebollar " I do not feel the patient is able to make decisions about her health care. She is not oriented anywhere close to the correct time. She does not seem to understand what her issues are and does not believe them. She does not understand exactly what the team is recommending regarding treatment. She also does not seem to understand the risks and benefits of not having that treatment and just going home." Admission and Anticipated Discharge Date Admission Date: January 07, 2024 Subjective No new complaints. Physical Exam Physical Exam: pt has persistent chronic venous stasis changes did have some orthostatic issues, reduce lasix check daily weights she is not oriented to place or time cardiac is regular lungs improved after restart Lasix tenderness at right SI area, not radicular no loss of strength Results & Data Results & Data Vital Signs (Past 12 Hours) Vital Signs Temp Pulse Resp BP Pulse Ox O2 Del Method 01/27/24 15:42 36.6 C 96 H 18 142/81 H 99 Room Air 01/27/24 07:37 36.6 C 72 16 129/75 97 Room Air PG Care Time/CCT Total # of Minutes Spent Total Time Spent with Patient: Total time spent is greater than 50% in coordination of care (as documented) at patient's floor/unit and/or counseling patient: Coding Level of Care Code 71690 SUB INP/OBS CARE 12/13MIN Diagnoses VTE (venous thromboembolism) I82.90 Chronic atrial fibrillation I48.2 Atrial fibrillation type: chronic Pressure ulcer L89.90 Hip pain, right M25.551 Elevated bilirubin R17 Dementia F03.90 (2) Atrial fibrillation Atrial fibrillation type: chronic Qualified Code(s): I48.2 - Chronic atrial fibrillation
[2024-01-28 08:05] LABS: Hematocrit (blood only) 43.4 % (37.0-47.0); Hemoglobin 14.6 g/dl (12.0-16.0); Mean Corpuscular Hemoglobin 27.9 pg (25.0-34.0); Mean Corpuscular Hgb Conc 33.6 g/dL (32.0-36.0); Mean Platelet Volume 11.5 fL (9.4-12.4); Nucleated RBC # (auto) 0.03 K/uL (0.00-0.12); Nucleated RBC % (auto) 0.5 %; Platelet Count 143 K/uL (130-400); RDW Standard Deviation 50.4 fL (36.4-46.3); Red Blood Count 5.23 M/uL (4.20-5.40); White Blood Count 5.64 K/ul (4.8-10.8)
[2024-01-28 11:22] LABS: Prothrombin Time 40.6 Seconds (9.0-12.0)
[2024-01-28] MEDS: PROCHLORPERAZINE 5 MG in SYRINGE 4 ML IV PRN (19:58)
--- NOTE | 2024-01-28 21:37 | Hospitalist Progress Note ---
Date of Service January 28, 2024 Assessment & Plan (1) VTE (venous thromboembolism): Plan: Pt presented with leg wounds and decline in function initial concern for metabolic encephalopathy due to infection of legs but found to have RLE DVT and multiple PE's started on therapeutic heparin parenterally reportedly was on home eliquis, seems RX may have been stopped early dec Due to obesity and elevated BMI, concern over restarting eliquis in the setting of an acute pulmonary emboli. coumadin., inr now therapeutic range Presented to the ED via EMS; was reported by ED staff that a home health caregiver called 911 after noting her LE wounds -It does not appear that the patient has been able to care for herself and has some component of cognitive decline/dementia -PT/OT consults and consults management for assistance as she will likely need placement on discharge. INR was elevated. will hold coumadin and resume on 01/28 (2) Atrial fibrillation: Plan: - hx of afib presented in RVR , rate controlled and on coumadin -Residual hypokalemia replete especially with restarting diuretics, magnesium also low this will be replete chronic diastolic heartfailure managed by lasix, did have some symptomatic low bp, will reduce lasix and follow daily weights (3) Pressure ulcer: Plan: -Patient with multiple, chronic-appearing pressure ulcers on the posterior left thigh and sacrum these are healed resolved (4) Hip pain, right: Plan: -Patient expresses severe right hip pain -X ray eval is without fracture ortho consult feels that pain is secondary to OA He now in the SI joint area. On scheduled Tylenol will increase oxycodone add Lidoderm patch (5) Elevated bilirubin: Plan: -Total bili elevated at 1.8 ? [place] [facility] us shows some changes in the gall bladder fossa, but no dilated Hepatic ducts (6) Dementia: Plan: -Last PCP note listed concerns for dementia -No focal neuro defects on exam -Fall/aspiration precautions ordered -directly impacts ability to care for self Patient has intermittent confusion during her hospital stay. Patient continues to ask if she can go home Psychaitric evaluation Dr Rebollar " I do not feel the patient is able to make decisions about her health care. She is not oriented anywhere close to the correct time. She does not seem to understand what her issues are and does not believe them. She does not understand exactly what the team is recommending regarding treatment. She also does not seem to understand the risks and benefits of not having that treatment and just going home." Admission and Anticipated Discharge Date Admission Date: January 07, 2024 Subjective Patient reports no new symptoms. Review of Systems Review of Systems: All systems reviewed & are unremarkable except as noted in HPI & below Physical Exam Physical Exam: pt has persistent chronic venous stasis changes did have some orthostatic issues, reduce lasix check daily weights she is not oriented to place or time cardiac is regular lungs improved after restart Lasix tenderness at right SI area, not radicular no loss of strength Results & Data Results & Data Vital Signs (Past 12 Hours) Vital Signs Temp Pulse Pulse Resp BP BP Pulse Ox 01/28/24 20:04 36.4 C L 84 14 151/83 H 94 01/28/24 16:01 36.7 C 106 H 16 149/78 H 98 01/28/24 12:33 36.3 C L 71 16 118/60 92 01/28/24 10:00 O2 Del Method 01/28/24 20:04 Room Air 01/28/24 16:01 Room Air 01/28/24 12:33 Room Air 01/28/24 10:00 Room Air PG Care Time/CCT Total # of Minutes Spent Total Time Spent with Patient: Total time spent is greater than 50% in coordination of care (as documented) at patient's floor/unit and/or counseling patient: Coding Level of Care Code 44622 SUB INP/OBS CARE 2/35MIN Diagnoses VTE (venous thromboembolism) I82.90 Chronic atrial fibrillation I48.2 Atrial fibrillation type: chronic Pressure ulcer L89.90 Hip pain, right M25.551 Elevated bilirubin R17 Dementia F03.90 (2) Atrial fibrillation Atrial fibrillation type: chronic Qualified Code(s): I48.2 - Chronic atrial fibrillation
[2024-01-29 09:56] LABS: Basophils # (auto) 0.01 K/uL (0.00-0.20); Basophils % (auto) 0.2 %; Eosinophils # (auto) 0.23 K/uL (0.00-0.50); Eosinophils % (auto) 3.6 %; Hematocrit (blood only) 39.9 % (37.0-47.0); Hemoglobin 12.9 g/dl (12.0-16.0); Immature Granulocytes # (auto) 0.02 K/uL (0.01-0.20); Immature Granulocytes % (auto) 0.3 %; Lymphocytes # (auto) 1.06 K/uL (1.20-3.40); Lymphocytes % (auto) 16.4 %; Mean Corpuscular Hemoglobin 27.6 pg (25.0-34.0); Mean Corpuscular Hgb Conc 32.3 g/dL (32.0-36.0); Mean Corpuscular Volume 85.3 fL (80.0-100.0); Mean Platelet Volume 11.4 fL (9.4-12.4); Monocytes # (auto) 0.56 K/uL (0.11-0.59); Monocytes % (auto) 8.7 %; Neutrophils # (auto) 4.59 K/uL (1.40-6.50); Neutrophils % (auto) 70.8 %; Platelet Count 193 K/uL (130-400); RDW Standard Deviation 51.8 fL (36.4-46.3); Red Blood Count 4.68 M/uL (4.20-5.40); White Blood Count 6.47 K/ul (4.8-10.8)
[2024-01-29 10:26] LABS: INR 3.7 (0.9-1.1); Prothrombin Time 36.9 Seconds (9.0-12.0)
[2024-01-29 10:31] LABS: BUN Creatinine Ratio 7.9 (10-20); C Reactive Protein 1.06 mg/dl (0-0.5); Calcium 8.9 mg/dl (8.6-10.3); Creatinine Clr Calc Pharmacy 84.8 ml/min; Est GFR (African American) 88.9 ml/min; Est GFR (Non-African American) 76.7 ml/min; Magnesium 1.7 mg/dl (1.7-2.4); Phosphorus 2.8 mg/dl (2.5-4.9)
--- NOTE | 2024-01-29 22:35 | Hospitalist Progress Note ---
Date of Service January 29, 2024 Assessment & Plan (1) VTE (venous thromboembolism): Plan: Pt presented with leg wounds and decline in function initial concern for metabolic encephalopathy due to infection of legs but found to have RLE DVT and multiple PE's started on therapeutic heparin parenterally reportedly was on home eliquis, seems RX may have been stopped early dec Due to obesity and elevated BMI, concern over restarting eliquis in the setting of an acute pulmonary emboli. coumadin., inr now therapeutic range Presented to the ED via EMS; was reported by ED staff that a home health caregiver called 911 after noting her LE wounds -It does not appear that the patient has been able to care for herself and has some component of cognitive decline/dementia -PT/OT consults and consults management for assistance as she will likely need placement on discharge. INR was elevated. will hold coumadin and resume on 01/29 (2) Atrial fibrillation: Plan: - hx of afib presented in RVR , rate controlled and on coumadin -Residual hypokalemia replete especially with restarting diuretics, magnesium also low this will be replete chronic diastolic heartfailure managed by lasix, did have some symptomatic low bp, will reduce lasix and follow daily weights (3) Pressure ulcer: Plan: -Patient with multiple, chronic-appearing pressure ulcers on the posterior left thigh and sacrum these are healed resolved (4) Hip pain, right: Plan: -Patient expresses severe right hip pain -X ray eval is without fracture ortho consult feels that pain is secondary to OA He now in the SI joint area. On scheduled Tylenol will increase oxycodone add Lidoderm patch (5) Elevated bilirubin: Plan: -Total bili elevated at 1.8 ? [place] [facility] us shows some changes in the gall bladder fossa, but no dilated Hepatic ducts (6) Dementia: Plan: -Last PCP note listed concerns for dementia -No focal neuro defects on exam -Fall/aspiration precautions ordered -directly impacts ability to care for self Patient has intermittent confusion during her hospital stay. Patient continues to ask if she can go home Psychaitric evaluation Dr Rebollar " I do not feel the patient is able to make decisions about her health care. She is not oriented anywhere close to the correct time. She does not seem to understand what her issues are and does not believe them. She does not understand exactly what the team is recommending regarding treatment. She also does not seem to understand the risks and benefits of not having that treatment and just going home." Admission and Anticipated Discharge Date Admission Date: January 07, 2024 Subjective Patient asking to go home. Physical Exam Physical Exam: pt has persistent chronic venous stasis changes did have some orthostatic issues, reduce lasix check daily weights she is not oriented to place or time cardiac is regular lungs improved after restart Lasix tenderness at right SI area, not radicular no loss of strength Results & Data Results & Data Vital Signs (Past 12 Hours) Vital Signs Temp Pulse Resp BP Pulse Ox O2 Del Method 01/29/24 19:59 37.4 C 101 H 16 126/85 98 Room Air 01/29/24 14:56 36.7 C 110 H 16 129/75 96 Room Air 01/29/24 11:05 36.6 C 95 H 15 159/105 H 95 Room Air PG Care Time/CCT Total # of Minutes Spent Total Time Spent with Patient: Total time spent is greater than 50% in coordination of care (as documented) at patient's floor/unit and/or counseling patient: Coding Level of Care Code 47395 SUB INP/OBS CARE 235MIN Diagnoses VTE (venous thromboembolism) I82.90 Chronic atrial fibrillation I48.2 Atrial fibrillation type: chronic Pressure ulcer L89.90 Hip pain, right M25.551 Elevated bilirubin R17 Dementia F03.90 (2) Atrial fibrillation Atrial fibrillation type: chronic Qualified Code(s): I48.2 - Chronic atrial fibrillation
[2024-01-30 10:04] LABS: INR 3.1 (0.9-1.1)
[2024-01-30] MEDS: CALCIUM CARBONATE 500 MG CHEWABLE TAB PO PRN (13:05)
--- NOTE | 2024-01-30 22:45 | Hospitalist Progress Note ---
Date of Service January 30, 2024 Assessment & Plan (1) VTE (venous thromboembolism): Plan: Pt presented with leg wounds and decline in function initial concern for metabolic encephalopathy due to infection of legs but found to have RLE DVT and multiple PE's started on therapeutic heparin parenterally reportedly was on home eliquis, seems RX may have been stopped early dec Due to obesity and elevated BMI, concern over restarting eliquis in the setting of an acute pulmonary emboli. coumadin., inr now therapeutic range Presented to the ED via EMS; was reported by ED staff that a home health caregiver called 911 after noting her LE wounds -It does not appear that the patient has been able to care for herself and has some component of cognitive decline/dementia -PT/OT consults and consults management for assistance as she will likely need placement on discharge. INR was elevated. held coumadin on 01/27 and 01/28 resumed on 01/29 (2) Atrial fibrillation: Plan: - hx of afib presented in RVR , rate controlled and on coumadin -Residual hypokalemia replete especially with restarting diuretics, magnesium also low this will be replete chronic diastolic heartfailure managed by lasix, did have some symptomatic low bp, will reduce lasix and follow daily weights (3) Pressure ulcer: Plan: -Patient with multiple, chronic-appearing pressure ulcers on the posterior left thigh and sacrum these are healed resolved (4) Hip pain, right: Plan: -Patient expresses severe right hip pain -X ray eval is without fracture ortho consult feels that pain is secondary to OA He now in the SI joint area. On scheduled Tylenol will increase oxycodone add Lidoderm patch (5) Elevated bilirubin: Plan: -Total bili elevated at 1.8 ? [place] [facility] us shows some changes in the gall bladder fossa, but no dilated Hepatic ducts (6) Dementia: Plan: -Last PCP note listed concerns for dementia -No focal neuro defects on exam -Fall/aspiration precautions ordered -directly impacts ability to care for self Patient has intermittent confusion during her hospital stay. Patient continues to ask if she can go home Psychaitric evaluation Dr Rebollar " I do not feel the patient is able to make decisions about her health care. She is not oriented anywhere close to the correct time. She does not seem to understand what her issues are and does not believe them. She does not understand exactly what the team is recommending regarding treatment. She also does not seem to understand the risks and benefits of not having that treatment and just going home." Admission and Anticipated Discharge Date Admission Date: January 07, 2024 Subjective Patient asks to be discharged. Review of Systems Review of Systems: All systems reviewed & are unremarkable except as noted in HPI & below Physical Exam Physical Exam: pt has persistent chronic venous stasis changes she is not oriented to place or time Results & Data Results & Data Vital Signs (Past 12 Hours) Vital Signs Temp Pulse Resp BP Pulse Ox O2 Del Method 01/30/24 20:26 36.3 C L 90 16 152/93 H 95 Room Air 01/30/24 14:53 36.6 C 82 16 120/69 97 Room Air PG Care Time/CCT Total # of Minutes Spent Total Time Spent with Patient: Total time spent is greater than 50% in coordination of care (as documented) at patient's floor/unit and/or counseling patient: Coding Level of Care Code 42236 SUB INP/OBS CARE 2/35MIN Diagnoses VTE (venous thromboembolism) I82.90 Chronic atrial fibrillation I48.2 Atrial fibrillation type: chronic Pressure ulcer L89.90 Hip pain, right M25.551 Elevated bilirubin R17 Dementia F03.90 (2) Atrial fibrillation Atrial fibrillation type: chronic Qualified Code(s): I48.2 - Chronic atrial fibrillation
[2024-01-31] MEDS: POLYETHYLENE (MIRALAX) 17 GM PACK PO PRN (01:13)
[2024-01-31 06:49] LABS: INR 2.8 (0.9-1.1); Prothrombin Time 29.2 Seconds (9.0-12.0)
--- NOTE | 2024-01-31 14:46 | Hospitalist Progress Note ---
Date of Service January 31, 2024 Assessment & Plan (1) VTE (venous thromboembolism): Plan: Pt presented with leg wounds and decline in function initial concern for metabolic encephalopathy due to infection of legs but found to have RLE DVT and multiple PE's started on therapeutic heparin parenterally reportedly was on home eliquis, seems RX may have been stopped early dec Due to obesity and elevated BMI, concern over restarting eliquis in the setting of an acute pulmonary emboli. coumadin., inr now therapeutic range Presented to the ED via EMS; was reported by ED staff that a home health caregiver called 911 after noting her LE wounds -It does not appear that the patient has been able to care for herself and has some component of cognitive decline/dementia -PT/OT consults and consults management for assistance as she will likely need placement on discharge. INR was elevated. held coumadin on 01/27 and 01/28 resumed on 01/29 (2) Atrial fibrillation: Plan: - hx of afib presented in RVR , rate controlled and on coumadin -Residual hypokalemia replete especially with restarting diuretics, magnesium also low this will be replete chronic diastolic heartfailure managed by lasix, did have some symptomatic low bp, will reduce lasix and follow daily weights (3) Pressure ulcer: Plan: -Patient with multiple, chronic-appearing pressure ulcers on the posterior left thigh and sacrum these are healed resolved (4) Hip pain, right: Plan: -Patient expresses severe right hip pain -X ray eval is without fracture ortho consult feels that pain is secondary to OA He now in the SI joint area. On scheduled Tylenol will increase oxycodone add Lidoderm patch (5) Elevated bilirubin: Plan: -Total bili elevated at 1.8 ? [place] [facility] us shows some changes in the gall bladder fossa, but no dilated Hepatic ducts (6) Dementia: Plan: -Last PCP note listed concerns for dementia -No focal neuro defects on exam -Fall/aspiration precautions ordered -directly impacts ability to care for self Patient has intermittent confusion during her hospital stay. Patient continues to ask if she can go home Psychaitric evaluation Dr Rebollar " I do not feel the patient is able to make decisions about her health care. She is not oriented anywhere close to the correct time. She does not seem to understand what her issues are and does not believe them. She does not understand exactly what the team is recommending regarding treatment. She also does not seem to understand the risks and benefits of not having that treatment and just going home." Admission and Anticipated Discharge Date Admission Date: January 07, 2024 Subjective Patient asks to be discharged. Physical Exam Physical Exam: pt has great improvement in legs, she has persistent chronic venous stasis changes did have some orthostatic issues, reduce lasix check daily weights she is not oriented to place or time cardiac is regular lungs improved after restart Lasix tenderness at right SI area, not radicular no loss of strength Results & Data Results & Data Vital Signs (Past 12 Hours) Vital Signs Temp Pulse Resp BP Pulse Ox O2 Del Method 01/31/24 08:00 Room Air 01/31/24 07:30 97.9 F 73 16 125/82 96 Room Air PG Care Time/CCT Total # of Minutes Spent Total Time Spent with Patient: Total time spent is greater than 50% in coordination of care (as documented) at patient's floor/unit and/or counseling patient: Coding Level of Care Code 33874 SUB INP/OBS CARE 2/35MIN Diagnoses VTE (venous thromboembolism) I82.90 Chronic atrial fibrillation I48.2 Atrial fibrillation type: chronic Pressure ulcer L89.90 Hip pain, right M25.551 Elevated bilirubin R17 Dementia F03.90 (2) Atrial fibrillation Atrial fibrillation type: chronic Qualified Code(s): I48.2 - Chronic atrial fibrillation
[2024-02-01 06:36] LABS: INR 2.5 (0.9-1.1); Prothrombin Time 25.5 Seconds (9.0-12.0)
--- NOTE | 2024-02-01 17:13 | Hospitalist Progress Note ---
Date of Service February 01, 2024 Assessment & Plan (1) VTE (venous thromboembolism): Plan: Pt presented with leg wounds and decline in function initial concern for metabolic encephalopathy due to infection of legs but found to have RLE DVT and multiple PE's started on therapeutic heparin parenterally reportedly was on home eliquis, seems RX may have been stopped early dec Due to obesity and elevated BMI, concern over restarting eliquis in the setting of an acute pulmonary emboli. coumadin., inr now therapeutic range Presented to the ED via EMS; was reported by ED staff that a home health caregiver called 911 after noting her LE wounds -It does not appear that the patient has been able to care for herself and has some component of cognitive decline/dementia -PT/OT consults and consults management for assistance as she will likely need placement on discharge. INR was elevated. held coumadin on 01/27 and 01/28 resumed on 01/29 (2) Atrial fibrillation: Plan: - hx of afib presented in RVR , rate controlled and on coumadin -Residual hypokalemia replete especially with restarting diuretics, magnesium also low this will be replete chronic diastolic heartfailure managed by lasix, did have some symptomatic low bp, will reduce lasix and follow daily weights (3) Pressure ulcer: Plan: -Patient with multiple, chronic-appearing pressure ulcers on the posterior left thigh and sacrum these are healed resolved (4) Hip pain, right: Plan: -Patient expresses severe right hip pain -X ray eval is without fracture ortho consult feels that pain is secondary to OA He now in the SI joint area. On scheduled Tylenol will increase oxycodone add Lidoderm patch (5) Elevated bilirubin: Plan: -Total bili elevated at 1.8 ? [place] [facility] us shows some changes in the gall bladder fossa, but no dilated Hepatic ducts (6) Dementia: Plan: -Last PCP note listed concerns for dementia -No focal neuro defects on exam -Fall/aspiration precautions ordered -directly impacts ability to care for self Patient has intermittent confusion during her hospital stay. Patient continues to ask if she can go home Psychaitric evaluation Dr Rebollar " I do not feel the patient is able to make decisions about her health care. She is not oriented anywhere close to the correct time. She does not seem to understand what her issues are and does not believe them. She does not understand exactly what the team is recommending regarding treatment. She also does not seem to understand the risks and benefits of not having that treatment and just going home." Admission and Anticipated Discharge Date Admission Date: January 07, 2024 Subjective Patient asks to be discharged. every day same conversation no disposition at the present Physical Exam Physical Exam: pt has great improvement in legs, she has persistent chronic venous stasis changes did have some orthostatic issues, reduce lasix check daily weights she is not oriented to place or time cardiac is regular lungs improved after restart Lasix tenderness at right SI area, not radicular no loss of strength Results & Data Results & Data Vital Signs (Past 12 Hours) Vital Signs Temp Pulse Pulse Resp BP Pulse Ox O2 Del Method 02/01/24 15:41 98.2 F 100 H 20 102/75 93 Room Air 02/01/24 14:45 97.7 F 93 H 19 91/73 L 90 Room Air 02/01/24 12:06 97.9 F 89 15 122/64 98 Room Air 02/01/24 10:26 Room Air 02/01/24 07:59 97.9 F 88 14 120/62 95 Room Air PG Care Time/CCT Total # of Minutes Spent Total Time Spent with Patient: Total time spent is greater than 50% in coordination of care (as documented) at patient's floor/unit and/or counseling patient: Coding Level of Care Code 89089 SUB INP/OBS CARE 12/13MIN Diagnoses VTE (venous thromboembolism) I82.90 Chronic atrial fibrillation I48.2 Atrial fibrillation type: chronic Pressure ulcer L89.90 Hip pain, right M25.551 Elevated bilirubin R17 Dementia F03.90 (2) Atrial fibrillation Atrial fibrillation type: chronic Qualified Code(s): I48.2 - Chronic atrial fibrillation
[2024-02-02 08:39] LABS: INR 2.9 (0.9-1.1); Prothrombin Time 29.3 Seconds (9.0-12.0)
--- NOTE | 2024-02-02 14:23 | Hospitalist Progress Note ---
Date of Service February 02, 2024 Assessment & Plan (1) VTE (venous thromboembolism): Plan: Pt presented with leg wounds and decline in function initial concern for metabolic encephalopathy due to infection of legs but found to have RLE DVT and multiple PE's concern with previous eliquis use, INR is therapeutic Due to obesity and elevated BMI, concern over restarting eliquis in the setting of an acute pulmonary emboli. Coumadin., inr now therapeutic range Presented to the ED via EMS; was reported by ED staff that a home health caregiver called 911 after noting her LE wounds -It does not appear that the patient has been able to care for herself and has some component of cognitive decline/dementia -PT/OT consults and consults management for assistance as she will likely need placement on discharge. coumadin resumed on 01/29 (2) Atrial fibrillation: Plan: - hx of afib presented in RVR , rate controlled and on coumadin -Residual hypokalemia replete especially with restarting diuretics, magnesium also low this will be replete chronic diastolic heartfailure managed by lasix, did have some symptomatic low bp, will reduce lasix and follow daily weights (3) Pressure ulcer: Plan: -Patient with multiple, chronic-appearing pressure ulcers on the posterior left thigh and sacrum these are healed resolved (4) Hip pain, right: Plan: -Patient expresses severe right hip pain -X ray eval is without fracture ortho consult feels that pain is secondary to OA He now in the SI joint area. On scheduled Tylenol will increase oxycodone add Lidoderm patch (5) Elevated bilirubin: Plan: -Total bili elevated at 1.8 ? [place] [facility] us shows some changes in the gall bladder fossa, but no dilated Hepatic ducts (6) Dementia: Plan: -Last PCP note listed concerns for dementia -No focal neuro defects on exam -Fall/aspiration precautions ordered -directly impacts ability to care for self Patient has intermittent confusion during her hospital stay. Patient continues to ask if she can go home Psychaitric evaluation Dr Rebollar " I do not feel the patient is able to make decisions about her health care. She is not oriented anywhere close to the correct time. She does not seem to understand what her issues are and does not believe them. She does not understand exactly what the team is recommending regarding treatment. She also does not seem to understand the risks and benefits of not having that treatment and just going home." Admission and Anticipated Discharge Date Admission Date: January 07, 2024 Subjective Patient asks to be discharged. no new changes on exam every day same conversation no disposition at the present Physical Exam Physical Exam: pt has great improvement in legs, she has persistent chronic venous stasis changes did have some orthostatic issues, reduced lasix check daily weights some reduction she is not oriented to place or time cardiac is regular lungs improved after restart Lasix tenderness at right SI area, not radicular no loss of strength Results & Data Results & Data Vital Signs (Past 12 Hours) Vital Signs Temp Pulse Resp BP Pulse Ox O2 Del Method 02/02/24 14:12 97.9 F 108 H 16 136/88 96 Room Air 02/02/24 10:04 94 H 20 98 Room Air 02/02/24 07:45 Room Air 02/02/24 07:31 97.7 F 83 16 121/69 93 Room Air Laboratory Results reviewed INR PG Care Time/CCT Total # of Minutes Spent Total Time Spent with Patient: Total time spent is greater than 50% in coordination of care (as documented) at patient's floor/unit and/or counseling patient: Coding Level of Care Code 60860 SUB INP/OBS CARE 12/13MIN Diagnoses VTE (venous thromboembolism) I82.90 Chronic atrial fibrillation I48.2 Atrial fibrillation type: chronic Pressure ulcer L89.90 Hip pain, right M25.551 Elevated bilirubin R17 Dementia F03.90 (2) Atrial fibrillation Atrial fibrillation type: chronic Qualified Code(s): I48.2 - Chronic atrial fibrillation
--- NOTE | 2024-02-03 16:59 | Hospitalist Progress Note ---
Date of Service February 03, 2024 Assessment & Plan (1) VTE (venous thromboembolism): Plan: Pt presented with leg wounds and decline in function initial concern for metabolic encephalopathy due to infection of legs but found to have RLE DVT and multiple PE's concern with previous eliquis use, INR is therapeutic Due to obesity and elevated BMI, concern over restarting eliquis in the setting of an acute pulmonary emboli. Coumadin., inr now therapeutic range Presented to the ED via EMS; was reported by ED staff that a home health caregiver called 911 after noting her LE wounds -It does not appear that the patient has been able to care for herself and has some component of cognitive decline/dementia -PT/OT consults and consults management for assistance as she will likely need placement on discharge. coumadin resumed on 01/29 (2) Atrial fibrillation: Plan: - hx of afib presented in RVR , rate controlled and on coumadin -Residual hypokalemia replete especially with restarting diuretics, magnesium also low this will be replete chronic diastolic heartfailure managed by lasix, did have some symptomatic low bp, will reduce lasix and follow daily weights (3) Pressure ulcer: Plan: -Patient with multiple, chronic-appearing pressure ulcers on the posterior left thigh and sacrum these are healed resolved (4) Hip pain, right: Plan: -Patient expresses severe right hip pain -X ray eval is without fracture ortho consult feels that pain is secondary to OA He now in the SI joint area. On scheduled Tylenol will increase oxycodone add Lidoderm patch (5) Elevated bilirubin: Plan: -Total bili elevated at 1.8 ? [place] [facility] us shows some changes in the gall bladder fossa, but no dilated Hepatic ducts (6) Dementia: Plan: -Last PCP note listed concerns for dementia -No focal neuro defects on exam -Fall/aspiration precautions ordered -directly impacts ability to care for self Patient has intermittent confusion during her hospital stay. Patient continues to ask if she can go home Psychaitric evaluation Dr Rebollar " I do not feel the patient is able to make decisions about her health care. She is not oriented anywhere close to the correct time. She does not seem to understand what her issues are and does not believe them. She does not understand exactly what the team is recommending regarding treatment. She also does not seem to understand the risks and benefits of not having that treatment and just going home." Admission and Anticipated Discharge Date Admission Date: January 07, 2024 Subjective Patient asks to be discharged. no new changes on exam every day same conversation no disposition at the present, one disposition is limited by BMI (41.1) Physical Exam Physical Exam: pt has great improvement in legs, she has persistent chronic venous stasis changes did have some orthostatic issues, reduced lasix check daily weights some reduction she is not oriented to place or time cardiac is regular lungs improved after restart Lasix tenderness at right SI area, not radicular no loss of strength Results & Data Results & Data Vital Signs (Past 12 Hours) Vital Signs Temp Pulse Resp BP Pulse Ox O2 Del Method 02/03/24 14:23 Room Air 02/03/24 14:15 99.0 F 98 H 18 172/92 H 96 Room Air 02/03/24 07:25 97.9 F 72 18 139/80 99 Room Air PG Care Time/CCT Total # of Minutes Spent Total Time Spent with Patient: Total time spent is greater than 50% in coordination of care (as documented) at patient's floor/unit and/or counseling patient: Coding Level of Care Code 01154 SUB INP/OBS CARE 12/13MIN Diagnoses VTE (venous thromboembolism) I82.90 Chronic atrial fibrillation I48.2 Atrial fibrillation type: chronic Pressure ulcer L89.90 Hip pain, right M25.551 Elevated bilirubin R17 Dementia F03.90 (2) Atrial fibrillation Atrial fibrillation type: chronic Qualified Code(s): I48.2 - Chronic atrial fibrillation
--- NOTE | 2024-02-04 16:56 | Hospitalist Progress Note ---
Date of Service February 04, 2024 Assessment & Plan (1) VTE (venous thromboembolism): Plan: Pt presented with leg wounds and decline in function initial concern for metabolic encephalopathy due to infection of legs but found to have RLE DVT and multiple PE's concern with previous eliquis use, INR is therapeutic Due to obesity and elevated BMI, concern over restarting eliquis in the setting of an acute pulmonary emboli. Coumadin., inr now supra therapeutic range warfarin held 02/05/24 this was while recieving 2 mg carmen Initially presented to the ED via EMS; was reported by ED staff that a home health caregiver called 911 after noting her LE wounds -It does not appear that the patient has been able to care for herself and has some component of cognitive decline/dementia -PT/OT consults and consults management for assistance as she will likely need placement on discharge. (2) Atrial fibrillation: Plan: - hx of afib presented in RVR , rate controlled and on coumadin -Residual hypokalemia replete especially with restarting diuretics, magnesium also low this will be replete chronic diastolic heartfailure managed by lasix, did have some symptomatic low bp, will reduce lasix and follow daily weights (3) Pressure ulcer: Plan: -Patient with multiple, chronic-appearing pressure ulcers on the posterior left thigh and sacrum these are healed resolved (4) Hip pain, right: Plan: -Patient expresses severe right hip pain -X ray eval is without fracture ortho consult feels that pain is secondary to OA He now in the SI joint area. On scheduled Tylenol will increase oxycodone add Lidoderm patch (5) Elevated bilirubin: Plan: -Total bili elevated at 1.8 ? [place] [facility] us shows some changes in the gall bladder fossa, but no dilated Hepatic ducts (6) Dementia: Plan: -Last PCP note listed concerns for dementia -No focal neuro defects on exam -Fall/aspiration precautions ordered -directly impacts ability to care for self Patient has intermittent confusion during her hospital stay. Patient continues to ask if she can go home Psychaitric evaluation Dr Rebollar " I do not feel the patient is able to make decisions about her health care. She is not oriented anywhere close to the correct time. She does not seem to understand what her issues are and does not believe them. She does not understand exactly what the team is recommending regarding treatment. She also does not seem to understand the risks and benefits of not having that treatment and just going home." Admission and Anticipated Discharge Date Admission Date: January 07, 2024 Subjective Patient asks to be discharged again every day. no new changes on exam every day same conversation no disposition at the present, one disposition is limited by BMI (41.1) Physical Exam Physical Exam: pt has had great improvement in legs, she has persistent chronic venous stasis changes she is not oriented to place or time cardiac is regular lungs improved after restart Lasix tenderness at right SI area, not radicular no loss of strength Results & Data Results & Data Vital Signs (Past 12 Hours) Vital Signs Temp Pulse Pulse Resp BP Pulse Ox O2 Del Method 02/04/24 14:37 97.9 F 77 16 119/81 95 Room Air 02/04/24 12:53 97.7 F 78 14 136/64 96 Room Air 02/04/24 08:06 97.7 F 86 15 140/72 98 Room Air 02/04/24 07:50 Room Air PG Care Time/CCT Total # of Minutes Spent Total Time Spent with Patient: Total time spent is greater than 50% in coordination of care (as documented) at patient's floor/unit and/or counseling patient: Coding Level of Care Code 00833 SUB INP/OBS CARE 12/13MIN Diagnoses VTE (venous thromboembolism) I82.90 Chronic atrial fibrillation I48.2 Atrial fibrillation type: chronic Pressure ulcer L89.90 Hip pain, right M25.551 Elevated bilirubin R17 Dementia F03.90 (2) Atrial fibrillation Atrial fibrillation type: chronic Qualified Code(s): I48.2 - Chronic atrial fibrillation
[2024-02-04] MEDS: MICONAZOLE NITRATE POWDER 85 GM EXT SCH (20:44)
[2024-02-05 07:26] LABS: INR 4.6 (0.9-1.1); Prothrombin Time 46.2 Seconds (9.0-12.0)
--- NOTE | 2024-02-05 17:16 | Hospitalist Progress Note ---
Date of Service February 05, 2024 Assessment & Plan (1) VTE (venous thromboembolism): Plan: Pt presented with leg wounds and decline in function initial concern for metabolic encephalopathy due to infection of legs but found to have RLE DVT and multiple PE's concern with previous eliquis use, INR is therapeutic Due to obesity and elevated BMI, concern over restarting eliquis in the setting of an acute pulmonary emboli. Coumadin., inr now supra therapeutic range warfarin held 02/04/24 this was while receiving 2 mg daiy Initially presented to the ED via EMS; was reported by ED staff that a home health caregiver called 911 after noting her LE wounds -It does not appear that the patient has been able to care for herself and has some component of cognitive decline/dementia -PT/OT consults and consults management for assistance as she will likely need placement on discharge. (2) Atrial fibrillation: Plan: - hx of afib presented in RVR , rate controlled and on coumadin -Residual hypokalemia replete especially with restarting diuretics, magnesium also low this will be replete chronic diastolic heartfailure managed by lasix, did have some symptomatic low bp, will reduce lasix and follow daily weights (3) Pressure ulcer: Plan: -Patient with multiple, chronic-appearing pressure ulcers on the posterior left thigh and sacrum these are healed resolved (4) Hip pain, right: Plan: -Patient expresses severe right hip pain -X ray eval is without fracture ortho consult feels that pain is secondary to OA He now in the SI joint area. On scheduled Tylenol will increase oxycodone add Lidoderm patch (5) Elevated bilirubin: Plan: -Total bili elevated at 1.8 ? [place] [facility] us shows some changes in the gall bladder fossa, but no dilated Hepatic ducts (6) Dementia: Plan: -Last PCP note listed concerns for dementia -No focal neuro defects on exam -Fall/aspiration precautions ordered -directly impacts ability to care for self Patient has intermittent confusion during her hospital stay. Patient continues to ask if she can go home Psychaitric evaluation Dr Rebollar " I do not feel the patient is able to make decisions about her health care. She is not oriented anywhere close to the correct time. She does not seem to understand what her issues are and does not believe them. She does not understand exactly what the team is recommending regarding treatment. She also does not seem to understand the risks and benefits of not having that treatment and just going home." Admission and Anticipated Discharge Date Admission Date: January 07, 2024 Subjective Patient asks to be discharged again every day. no new changes on exam 02/05/24 every day same conversation no disposition at the present, one disposition is limited by BMI (41.1) Physical Exam Physical Exam: pt has had great improvement in legs, she has persistent chronic venous stasis changes she is not oriented to place or time cardiac is regular lungs improved after restart Lasix tenderness at right SI area, not radicular no loss of strength Results & Data Results & Data Vital Signs (Past 12 Hours) Vital Signs Temp Pulse Pulse Resp BP BP Pulse Ox 02/05/24 15:35 97.9 F 100 H 16 143/67 H 98 02/05/24 10:21 02/05/24 08:28 98.2 F 122 H 18 137/85 98 O2 Del Method 02/05/24 15:35 Room Air 02/05/24 10:21 Room Air 02/05/24 08:28 Room Air PG Care Time/CCT Total # of Minutes Spent Total Time Spent with Patient: Total time spent is greater than 50% in coordination of care (as documented) at patient's floor/unit and/or counseling patient: Coding Level of Care Code 77893 SUB INP/OBS CARE 2MIN Diagnoses VTE (venous thromboembolism) I82.90 Chronic atrial fibrillation I48.2 Atrial fibrillation type: chronic Pressure ulcer L89.90 Hip pain, right M25.551 Elevated bilirubin R17 Dementia F03.90 (2) Atrial fibrillation Atrial fibrillation type: chronic Qualified Code(s): I48.2 - Chronic atrial fibrillation
[2024-02-06 08:06] LABS: Prothrombin Time 40.4 Seconds (9.0-12.0)
[2024-02-06 08:43] LABS: Potassium 4.1 mmol/L (3.5-5.1)
[2024-02-06 08:44] LABS: Calcium 8.9 mg/dl (8.6-10.3)
[2024-02-06 08:49] LABS: BUN Creatinine Ratio 8.9 (10-20); Creatinine Clr Calc Pharmacy 71.8 ml/min; Est GFR (African American) 72.5 ml/min; Est GFR (Non-African American) 62.5 ml/min
--- NOTE | 2024-02-06 12:02 | Hospitalist Progress Note ---
Date of Service February 06, 2024 Assessment & Plan (1) VTE (venous thromboembolism): Plan: Pt presented with leg wounds and decline in function initial concern for metabolic encephalopathy due to infection of legs but found to have RLE DVT and multiple PE's concern with previous eliquis use, INR is therapeutic Due to obesity and elevated BMI, concern over restarting eliquis in the setting of an acute pulmonary emboli. Coumadin., inr now supra therapeutic range warfarin held 02/04/24 this was while receiving 2 mg daiy Initially presented to the ED via EMS; was reported by ED staff that a home health caregiver called 911 after noting her LE wounds -It does not appear that the patient has been able to care for herself and has some component of cognitive decline/dementia -PT/OT consults and consults management for assistance as she will likely need placement on discharge. reviewed chart and had discussion with previous provider. Reviewed INR on 02/05 (2) Atrial fibrillation: Plan: - hx of afib presented in RVR , rate controlled and on coumadin -Residual hypokalemia replete especially with restarting diuretics, magnesium also low this will be replete chronic diastolic heartfailure managed by lasix, did have some symptomatic low bp, will reduce lasix and follow daily weights (3) Pressure ulcer: Plan: -Patient with multiple, chronic-appearing pressure ulcers on the posterior left thigh and sacrum these are healed resolved (4) Hip pain, right: Plan: -Patient expresses severe right hip pain -X ray eval is without fracture ortho consult feels that pain is secondary to OA He now in the SI joint area. On scheduled Tylenol will increase oxycodone add Lidoderm patch (5) Elevated bilirubin: Plan: -Total bili elevated at 1.8 ? [place] [facility] us shows some changes in the gall bladder fossa, but no dilated Hepatic ducts (6) Dementia: Plan: -Last PCP note listed concerns for dementia -No focal neuro defects on exam -Fall/aspiration precautions ordered -directly impacts ability to care for self Patient has intermittent confusion during her hospital stay. Patient continues to ask if she can go home Psychaitric evaluation Dr Rebollar " I do not feel the patient is able to make decisions about her health care. She is not oriented anywhere close to the correct time. She does not seem to understand what her issues are and does not believe them. She does not understand exactly what the team is recommending regarding treatment. She also does not seem to understand the risks and benefits of not having that treatment and just going home." Admission and Anticipated Discharge Date Admission Date: January 07, 2024 Subjective Patient reports no new symptoms. Review of Systems Review of Systems: All systems reviewed & are unremarkable except as noted in HPI & below Physical Exam Physical Exam: pt has persistent chronic venous stasis changes she is not oriented to place or time Results & Data Results & Data Vital Signs (Past 12 Hours) Vital Signs Temp Pulse Resp BP Pulse Ox O2 Del Method 02/06/24 08:00 Room Air 02/06/24 07:24 36.4 C L 75 20 134/79 99 Room Air PG Care Time/CCT Total # of Minutes Spent Total Time Spent with Patient: Total time spent is greater than 50% in coordination of care (as documented) at patient's floor/unit and/or counseling patient: Coding Level of Care Code 12333 SUB INP/OBS CARE 2/35MIN Diagnoses VTE (venous thromboembolism) I82.90 Chronic atrial fibrillation I48.2 Atrial fibrillation type: chronic Pressure ulcer L89.90 Hip pain, right M25.551 Elevated bilirubin R17 Dementia F03.90 (2) Atrial fibrillation Atrial fibrillation type: chronic Qualified Code(s): I48.2 - Chronic atrial fibrillation
[2024-02-07 08:08] LABS: Prothrombin Time 30.6 Seconds (9.0-12.0)
--- NOTE | 2024-02-07 22:16 | Hospitalist Progress Note ---
Date of Service February 07, 2024 Assessment & Plan (1) VTE (venous thromboembolism): Plan: Pt presented with leg wounds and decline in function initial concern for metabolic encephalopathy due to infection of legs but found to have RLE DVT and multiple PE's concern with previous eliquis use, INR is therapeutic Due to obesity and elevated BMI, concern over restarting eliquis in the setting of an acute pulmonary emboli. Coumadin., inr now supra therapeutic range warfarin held 02/04/24 this was while receiving 2 mg daiy Initially presented to the ED via EMS; was reported by ED staff that a home health caregiver called 911 after noting her LE wounds -It does not appear that the patient has been able to care for herself and has some component of cognitive decline/dementia -PT/OT consults and consults management for assistance as she will likely need placement on discharge. reviewed chart and had discussion with previous provider. Reviewed INR on 02/06 (2) Atrial fibrillation: Plan: - hx of afib presented in RVR , rate controlled and on coumadin -Residual hypokalemia replete especially with restarting diuretics, magnesium also low this will be replete chronic diastolic heartfailure managed by lasix, did have some symptomatic low bp, will reduce lasix and follow daily weights (3) Pressure ulcer: Plan: -Patient with multiple, chronic-appearing pressure ulcers on the posterior left thigh and sacrum these are healed resolved (4) Hip pain, right: Plan: -Patient expresses severe right hip pain -X ray eval is without fracture ortho consult feels that pain is secondary to OA He now in the SI joint area. On scheduled Tylenol will increase oxycodone add Lidoderm patch (5) Elevated bilirubin: Plan: -Total bili elevated at 1.8 ? [place] [facility] us shows some changes in the gall bladder fossa, but no dilated Hepatic ducts (6) Dementia: Plan: -Last PCP note listed concerns for dementia -No focal neuro defects on exam -Fall/aspiration precautions ordered -directly impacts ability to care for self Patient has intermittent confusion during her hospital stay. Patient continues to ask if she can go home Psychaitric evaluation Dr Rebollar " I do not feel the patient is able to make decisions about her health care. She is not oriented anywhere close to the correct time. She does not seem to understand what her issues are and does not believe them. She does not understand exactly what the team is recommending regarding treatment. She also does not seem to understand the risks and benefits of not having that treatment and just going home." Admission and Anticipated Discharge Date Admission Date: January 07, 2024 Subjective Ptient reports no new symptoms. Review of Systems Review of Systems: All systems reviewed & are unremarkable except as noted in HPI & below Physical Exam Physical Exam: pt has persistent chronic venous stasis changes she is not oriented to place or time Results & Data Results & Data Vital Signs (Past 12 Hours) Vital Signs Temp Pulse Resp BP BP Pulse Ox O2 Del Method 02/07/24 21:26 36.3 C L 51 L 16 103/65 95 Room Air 02/07/24 15:13 36.4 C L 90 16 140/66 98 Room Air PG Care Time/CCT Total # of Minutes Spent Total Time Spent with Patient: Total time spent is greater than 50% in coordination of care (as documented) at patient's floor/unit and/or counseling patient: Coding Level of Care Code 05531 SUB INP/OBS CARE 2/35MIN Diagnoses VTE (venous thromboembolism) I82.90 Chronic atrial fibrillation I48.2 Atrial fibrillation type: chronic Pressure ulcer L89.90 Hip pain, right M25.551 Elevated bilirubin R17 Dementia F03.90 (2) Atrial fibrillation Atrial fibrillation type: chronic Qualified Code(s): I48.2 - Chronic atrial fibrillation
[2024-02-08 07:35] LABS: Hematocrit (blood only) 37.2 % (37.0-47.0); Hemoglobin 12.3 g/dl (12.0-16.0); Mean Corpuscular Hgb Conc 33.1 g/dL (32.0-36.0); Mean Corpuscular Volume 84.7 fL (80.0-100.0); Mean Platelet Volume 11.4 fL (9.4-12.4); Platelet Count 209 K/uL (130-400); RDW Coefficient of Variation 18.4 % (11.5-14.5); RDW Standard Deviation 55.7 fL (36.4-46.3); Red Blood Count 4.39 M/uL (4.20-5.40); White Blood Count 8.04 K/ul (4.8-10.8)
[2024-02-08 07:55] LABS: BUN Creatinine Ratio 9.9 (10-20); Calcium 9.1 mg/dl (8.6-10.3); Creatinine Clr Calc Pharmacy 71.9 ml/min; Est GFR (African American) 71.5 ml/min; Est GFR (Non-African American) 61.7 ml/min; Potassium 4.5 mmol/L (3.5-5.1)
[2024-02-08 08:01] LABS: INR 2.5 (0.9-1.1); Prothrombin Time 25.7 Seconds (9.0-12.0)
--- NOTE | 2024-02-08 10:41 | Hospitalist Progress Note ---
Date of Service February 08, 2024 Assessment & Plan (1) VTE (venous thromboembolism): Plan: Pt presented with leg wounds and decline in function initial concern for metabolic encephalopathy due to infection of legs but found to have RLE DVT and multiple PE's concern with previous eliquis use, INR is therapeutic Due to obesity and elevated BMI, concern over restarting eliquis in the setting of an acute pulmonary emboli. Coumadin., inr now supra therapeutic range warfarin held 02/04/24 this was while receiving 2 mg daiy Initially presented to the ED via EMS; was reported by ED staff that a home health caregiver called 911 after noting her LE wounds -It does not appear that the patient has been able to care for herself and has some component of cognitive decline/dementia -PT/OT consults and consults management for assistance as she will likely need placement on discharge. reviewed chart and had discussion with previous provider. Reviewed INR on 02/07, therapuetic. will continue warfarin at 2mg, but will cut back on 02/08 (2) Atrial fibrillation: Plan: - hx of afib presented in RVR , rate controlled and on coumadin -Residual hypokalemia replete especially with restarting diuretics, magnesium also low this will be replete chronic diastolic heartfailure managed by lasix, did have some symptomatic low bp, will reduce lasix and follow daily weights (3) Pressure ulcer: Plan: -Patient with multiple, chronic-appearing pressure ulcers on the posterior left thigh and sacrum these are healed resolved (4) Hip pain, right: Plan: -Patient expresses severe right hip pain -X ray eval is without fracture ortho consult feels that pain is secondary to OA He now in the SI joint area. On scheduled Tylenol will increase oxycodone add Lidoderm patch (5) Elevated bilirubin: Plan: -Total bili elevated at 1.8 ? [facility] us shows some changes in the gall bladder fossa, but no dilated Hepatic ducts (6) Dementia: Plan: -Last PCP note listed concerns for dementia -No focal neuro defects on exam -Fall/aspiration precautions ordered -directly impacts ability to care for self Patient has intermittent confusion during her hospital stay. Patient continues to ask if she can go home Psychaitric evaluation Dr Rebollar " I do not feel the patient is able to make decisions about her health care. She is not oriented anywhere close to the correct time. She does not seem to understand what her issues are and does not believe them. She does not understand exactly what the team is recommending regarding treatment. She also does not seem to understand the risks and benefits of not having that treatment and just going home." Admission and Anticipated Discharge Date Admission Date: January 07, 2024 Subjective Patient reports no new symptoms. Review of Systems Review of Systems: All systems reviewed & are unremarkable except as noted in HPI & below Physical Exam Physical Exam: pt has persistent chronic venous stasis changes she is not oriented to place or time Results & Data Results & Data Vital Signs (Past 12 Hours) Vital Signs Temp Pulse Resp BP Pulse Ox O2 Del Method 02/08/24 08:00 Room Air 02/08/24 07:55 36.4 C L 62 18 111/69 97 Room Air PG Care Time/CCT Total # of Minutes Spent Total Time Spent with Patient: Total time spent is greater than 50% in coordination of care (as documented) at patient's floor/unit and/or counseling patient: Coding Level of Care Code 17112 SUB INP/OBS CARE 2/35MIN Diagnoses VTE (venous thromboembolism) I82.90 Chronic atrial fibrillation I48.2 Atrial fibrillation type: chronic Pressure ulcer L89.90 Hip pain, right M25.551 Elevated bilirubin R17 Dementia F03.90 (2) Atrial fibrillation Atrial fibrillation type: chronic Qualified Code(s): I48.2 - Chronic atrial fibrillation
[2024-02-09 08:54] LABS: INR 2.6 (0.9-1.1); Prothrombin Time 26.4 Seconds (9.0-12.0)
--- NOTE | 2024-02-09 17:31 | Hospitalist Progress Note ---
Date of Service February 09, 2024 Assessment & Plan (1) VTE (venous thromboembolism): Plan: Pt presented with leg wounds and decline in function initial concern for metabolic encephalopathy due to infection of legs but found to have RLE DVT and multiple PE's concern with previous eliquis use, INR is therapeutic Due to obesity and elevated BMI, concern over restarting eliquis in the setting of an acute pulmonary emboli. Coumadin., inr now supra therapeutic range warfarin held 02/04/24 this was while receiving 2 mg daiy Initially presented to the ED via EMS; was reported by ED staff that a home health caregiver called 911 after noting her LE wounds -It does not appear that the patient has been able to care for herself and has some component of cognitive decline/dementia -PT/OT consults and consults management for assistance as she will likely need placement on discharge. reviewed chart and had discussion with previous provider. Reviewed INR on 02/07, therapuetic. will continue warfarin at 2mg, but will cut back on 02/09 (2) Atrial fibrillation: Plan: - hx of afib presented in RVR , rate controlled and on coumadin -Residual hypokalemia replete especially with restarting diuretics, magnesium also low this will be replete chronic diastolic heartfailure managed by lasix, did have some symptomatic low bp, will reduce lasix and follow daily weights (3) Pressure ulcer: Plan: -Patient with multiple, chronic-appearing pressure ulcers on the posterior left thigh and sacrum these are healed resolved (4) Hip pain, right: Plan: -Patient expresses severe right hip pain -X ray eval is without fracture ortho consult feels that pain is secondary to OA He now in the SI joint area. On scheduled Tylenol will increase oxycodone add Lidoderm patch (5) Elevated bilirubin: Plan: -Total bili elevated at 1.8 ? [place] [facility] us shows some changes in the gall bladder fossa, but no dilated Hepatic ducts (6) Dementia: Plan: -Last PCP note listed concerns for dementia -No focal neuro defects on exam -Fall/aspiration precautions ordered -directly impacts ability to care for self Patient has intermittent confusion during her hospital stay. Patient continues to ask if she can go home Psychaitric evaluation Dr Rebollar " I do not feel the patient is able to make decisions about her health care. She is not oriented anywhere close to the correct time. She does not seem to understand what her issues are and does not believe them. She does not understand exactly what the team is recommending regarding treatment. She also does not seem to understand the risks and benefits of not having that treatment and just going home." Admission and Anticipated Discharge Date Admission Date: January 07, 2024 Subjective Patient reports no new symptoms. Review of Systems Review of Systems: All systems reviewed & are unremarkable except as noted in HPI & below Physical Exam Physical Exam: pt has persistent chronic venous stasis changes she is not oriented to place or time Results & Data Results & Data Vital Signs (Past 12 Hours) Vital Signs Temp Pulse Resp BP Pulse Ox O2 Del Method 02/09/24 15:29 36.7 C 87 16 122/62 98 Room Air 02/09/24 08:04 36.4 C L 76 16 98/66 L 98 Room Air 02/09/24 07:00 Room Air PG Care Time/CCT Total # of Minutes Spent Total Time Spent with Patient: Total time spent is greater than 50% in coordination of care (as documented) at patient's floor/unit and/or counseling patient: Coding Level of Care Code 25519 SUB INP/OBS CARE 2/35MIN Diagnoses VTE (venous thromboembolism) I82.90 Chronic atrial fibrillation I48.2 Atrial fibrillation type: chronic Pressure ulcer L89.90 Hip pain, right M25.551 Elevated bilirubin R17 Dementia F03.90 (2) Atrial fibrillation Atrial fibrillation type: chronic Qualified Code(s): I48.2 - Chronic atrial fibrillation
[2024-02-10 07:43] LABS: INR 2.9 (0.9-1.1); Prothrombin Time 29.9 Seconds (9.0-12.0)
--- NOTE | 2024-02-10 11:12 | Hospitalist Progress Note ---
Date of Service February 10, 2024 Assessment & Plan (1) VTE (venous thromboembolism): Plan: Pt presented with leg wounds and decline in function initial concern for metabolic encephalopathy due to infection of legs but found to have RLE DVT and multiple PE's concern with previous eliquis use, INR is therapeutic Due to obesity and elevated BMI, concern over restarting eliquis in the setting of an acute pulmonary emboli. Coumadin., inr now supra therapeutic range warfarin held 02/04/24 this was while receiving 2 mg daiy Initially presented to the ED via EMS; was reported by ED staff that a home health caregiver called 911 after noting her LE wounds -It does not appear that the patient has been able to care for herself and has some component of cognitive decline/dementia -PT/OT consults and consults management for assistance as she will likely need placement on discharge. reviewed chart and had discussion with previous provider. Reviewed INR on 02/07, therapuetic. will continue warfarin at 2mg, but will cut back on 02/09 On 02/09 Cutting back by 15% Sunday, sunday, and sunday will be 2 mg and the other days will be 1.5 mg (2) Atrial fibrillation: Plan: - hx of afib presented in RVR , rate controlled and on coumadin -Residual hypokalemia replete especially with restarting diuretics, magnesium also low this will be replete chronic diastolic heartfailure managed by lasix, did have some symptomatic low bp, will reduce lasix and follow daily weights (3) Pressure ulcer: Plan: -Patient with multiple, chronic-appearing pressure ulcers on the posterior left thigh and sacrum these are healed resolved (4) Hip pain, right: Plan: -Patient expresses severe right hip pain -X ray eval is without fracture ortho consult feels that pain is secondary to OA He now in the SI joint area. On scheduled Tylenol will increase oxycodone add Lidoderm patch (5) Elevated bilirubin: Plan: -Total bili elevated at 1.8 ? [place] [facility] us shows some changes in the gall bladder fossa, but no dilated Hepatic ducts (6) Dementia: Plan: -Last PCP note listed concerns for dementia -No focal neuro defects on exam -Fall/aspiration precautions ordered -directly impacts ability to care for self Patient has intermittent confusion during her hospital stay. Patient continues to ask if she can go home Psychaitric evaluation Dr Rebollar " I do not feel the patient is able to make decisions about her health care. She is not oriented anywhere close to the co rrect time. She does not seem to understand what her issues are and does not believe them. She does not understand exactly what the team is recommending regarding treatment. She also does not seem to understand the risks and benefits of not having that treatment and just going home." Admission and Anticipated Discharge Date Admission Date: January 07, 2024 Subjective 74 yo female reports no new symptoms. Review of Systems Review of Systems: All systems reviewed & are unremarkable except as noted in HPI & below Physical Exam Physical Exam: pt has persistent chronic venous stasis changes she is not oriented to place or time Results & Data Results & Data Vital Signs (Past 12 Hours) Vital Signs Temp Pulse Resp BP Pulse Ox O2 Del Method 02/10/24 08:00 Room Air 02/10/24 07:35 36.5 C 84 16 102/71 98 Room Air PG Care Time/CCT Total # of Minutes Spent Total Time Spent with Patient: Total time spent is greater than 50% in coordination of care (as documented) at patient's floor/unit and/or counseling patient: Coding Level of Care Code 72496 SUB INP/OBS CARE 2/35MIN Diagnoses VTE (venous thromboembolism) I82.90 Chronic atrial fibrillation I48.2 Atrial fibrillation type: chronic Pressure ulcer L89.90 Hip pain, right M25.551 Elevated bilirubin R17 Dementia F03.90 (2) Atrial fibrillation Atrial fibrillation type: chronic Qualified Code(s): I48.2 - Chronic atrial fibrillation
[2024-02-10] MEDS: WARFARIN SOD 0.5 MG TAB PO SCH (17:02)
[2024-02-11 07:10] LABS: INR 3.6 (0.9-1.1); Prothrombin Time 36.2 Seconds (9.0-12.0)
[2024-02-11] MEDS ORDERED: WARFARIN SOD 2 MG TAB PO SCH (16:00)
--- NOTE | 2024-02-11 21:29 | Hospitalist Progress Note ---
Date of Service February 11, 2024 Assessment & Plan (1) VTE (venous thromboembolism): Plan: Pt presented with leg wounds and decline in function initial concern for metabolic encephalopathy due to infection of legs but found to have RLE DVT and multiple PE's concern with previous eliquis use, INR is therapeutic Due to obesity and elevated BMI, concern over restarting eliquis in the setting of an acute pulmonary emboli. Coumadin., inr now supra therapeutic range warfarin held 02/04/24 this was while receiving 2 mg daiy Initially presented to the ED via EMS; was reported by ED staff that a home health caregiver called 911 after noting her LE wounds -It does not appear that the patient has been able to care for herself and has some component of cognitive decline/dementia -PT/OT consults and consults management for assistance as she will likely need placement on discharge. reviewed chart and had discussion with previous provider. Reviewed INR on 02/07, therapuetic. will continue warfarin at 2mg, but will cut back on 02/09 On 02/09 Cutting back by 15% Sunday, sunday, and sunday will be 2 mg and the other days will be 1.5 mg (2) Atrial fibrillation: Plan: - hx of afib presented in RVR , rate controlled and on coumadin -Residual hypokalemia replete especially with restarting diuretics, magnesium also low this will be replete chronic diastolic heartfailure managed by lasix, did have some symptomatic low bp, will reduce lasix and follow daily weights (3) Pressure ulcer: Plan: -Patient with multiple, chronic-appearing pressure ulcers on the posterior left thigh and sacrum these are healed resolved (4) Hip pain, right: Plan: -Patient expresses severe right hip pain -X ray eval is without fracture ortho consult feels that pain is secondary to OA He now in the SI joint area. On scheduled Tylenol will increase oxycodone add Lidoderm patch (5) Elevated bilirubin: Plan: -Total bili elevated at 1.8 ? [place] [facility] us shows some changes in the gall bladder fossa, but no dilated Hepatic ducts (6) Dementia: Plan: -Last PCP note listed concerns for dementia -No focal neuro defects on exam -Fall/aspiration precautions ordered -directly impacts ability to care for self Patient has intermittent confusion during her hospital stay. Patient continues to ask if she can go home Psychaitric evaluation Dr Rebollar " I do not feel the patient is able to make decisions about her health care. She is not oriented anywhere close to the co rrect time. She does not seem to understand what her issues are and does not believe them. She does not understand exactly what the team is recommending regarding treatment. She also does not seem to understand the risks and benefits of not having that treatment and just going home." Admission and Anticipated Discharge Date Admission Date: January 07, 2024 Subjective Patient reports no new symptoms. Review of Systems Review of Systems: All systems reviewed & are unremarkable except as noted in HPI & below Physical Exam Physical Exam: pt has persistent chronic venous stasis changes she is not oriented to place or time Results & Data Results & Data Vital Signs (Past 12 Hours) Vital Signs Temp Pulse Pulse Resp BP Pulse Ox O2 Del Method 02/11/24 20:17 36.7 C 84 16 113/73 94 Room Air 02/11/24 15:10 36.5 C 66 18 116/60 99 Room Air PG Care Time/CCT Total # of Minutes Spent Total Time Spent with Patient: Total time spent is greater than 50% in coordination of care (as documented) at patient's floor/unit and/or counseling patient: Coding Level of Care Code 44595 SUB INP/OBS CARE 12/13MIN Diagnoses VTE (venous thromboembolism) I82.90 Chronic atrial fibrillation I48.2 Atrial fibrillation type: chronic Pressure ulcer L89.90 Hip pain, right M25.551 Elevated bilirubin R17 Dementia F03.90 (2) Atrial fibrillation Atrial fibrillation type: chronic Qualified Code(s): I48.2 - Chronic atrial fibrillation
[2024-02-12 07:31] LABS: Hematocrit (blood only) 35.4 % (37.0-47.0); Hemoglobin 11.8 g/dl (12.0-16.0); Mean Corpuscular Hemoglobin 28.2 pg (25.0-34.0); Mean Corpuscular Hgb Conc 33.3 g/dL (32.0-36.0); Mean Corpuscular Volume 84.7 fL (80.0-100.0); Mean Platelet Volume 11.5 fL (9.4-12.4); Platelet Count 228 K/uL (130-400); RDW Coefficient of Variation 18.6 % (11.5-14.5); RDW Standard Deviation 56.4 fL (36.4-46.3); Red Blood Count 4.18 M/uL (4.20-5.40)
[2024-02-12 07:46] LABS: Calcium 9.2 mg/dl (8.6-10.3); Creatinine Clr Calc Pharmacy 75.4 ml/min; Est GFR (African American) 76.6 ml/min; Est GFR (Non-African American) 66.1 ml/min; Potassium 4.3 mmol/L (3.5-5.1)
[2024-02-12 07:53] LABS: INR 3.7 (0.9-1.1); Prothrombin Time 37.1 Seconds (9.0-12.0)
[2024-02-12] MEDS: FAMOTIDINE 40 MG TABLET PO ONE (16:57)
--- NOTE | 2024-02-12 19:43 | XRay Report ---
XR KUB/Abdomen 1 view CLINICAL HISTORY: abdominal pain TECHNIQUE: 1 view of the abdomen was obtained. Comparison: Comparison is made to abdomen radiograph 07/17/[address] abdomen pelvis 09/21/2021 FINDINGS: Lung bases are unremarkable. Degenerative changes are seen in the visualized skeleton. Posterior fixa tion hardware is seen in the L5-S1 position. Multiple gas-distended loops of bowel are seen. No signi ficant stool burden is seen. Colonic gas is seen. IMPRESSION: Multiple distended loops of bowel are seen. Many such loops likely represent gas distended and redund ant large bowel, however a partial small bowel obstruction cannot be excluded. CT chest can be perfor med if there is clinical concern. Prominent colonic gas remains. ACT 112: Negative or not required by law. Electronically signed by: David Chavez M.D. 02/12/2024 7:42 PM
--- NOTE | 2024-02-12 21:55 | Hospitalist Progress Note ---
Date of Service February 12, 2024 Assessment & Plan (1) VTE (venous thromboembolism): Plan: Pt presented with leg wounds and decline in function initial concern for metabolic encephalopathy due to infection of legs but found to have RLE DVT and multiple PE's concern with previous eliquis use, INR is therapeutic Due to obesity and elevated BMI, concern over restarting eliquis in the setting of an acute pulmonary emboli. Coumadin., inr now supra therapeutic range warfarin held 02/04/24 this was while receiving 2 mg daiy Initially presented to the ED via EMS; was reported by ED staff that a home health caregiver called 911 after noting her LE wounds -It does not appear that the patient has been able to care for herself and has some component of cognitive decline/dementia -PT/OT consults and consults management for assistance as she will likely need placement on discharge. reviewed chart and had discussion with previous provider. Reviewed INR on 02/07, therapuetic. will continue warfarin at 2mg, but will cut back on 02/09 On 02/09 Cutting back by 15% Sunday, sunday, and sunday will be 2 mg and the other days will be 1.5 mg On 02/11, worsening abd. psain. obtained kub, distended loops no lukocytosis. will switch miralax to scheduled and monitor. (2) Atrial fibrillation: Plan: - hx of afib presented in RVR , rate controlled and on coumadin -Residual hypokalemia replete especially with restarting diuretics, magnesium also low this will be replete chronic diastolic heartfailure managed by lasix, did have some symptomatic low bp, will reduce lasix and follow daily weights (3) Pressure ulcer: Plan: -Patient with multiple, chronic-appearing pressure ulcers on the posterior left thigh and sacrum these are healed resolved (4) Hip pain, right: Plan: -Patient expresses severe right hip pain -X ray eval is without fracture ortho consult feels that pain is secondary to OA He now in the SI joint area. On scheduled Tylenol will increase oxycodone add Lidoderm patch (5) Elevated bilirubin: Plan: -Total bili elevated at 1.8 ? [place] liver us shows some changes in the gall bladder fossa, but no dilated Hepatic ducts (6) Dementia: Plan: -Last PCP note listed concerns for dementia -No focal neuro defects on exam -Fall/aspiration precautions ordered -directly impacts ability to care for self Patient has intermittent confusion during her hospital stay. Patient continues to ask if she can go home Psychaitric evaluation Dr Rebollar " I do not feel the patient is able to make decisions about her health care. She is not oriented anywhere close to the correct time. She does not seem to understand what her issues are and does not believe them. She does not understand exactly what the team is recommending regarding treatment. She also does not seem to understand the risks and benefits of not having that treatment and just going home." Admission and Anticipated Discharge Date Admission Date: January 07, 2024 Subjective Patient reports lower abd. pain. Review of Systems Review of Systems: All systems reviewed & are unremarkable except as noted in HPI & below Physical Exam Physical Exam: pt has persistent chronic venous stasis changes she is not oriented to place or time abd: soft, distended, no rebound Results & Data Results & Data Vital Signs (Past 12 Hours) Vital Signs Temp Pulse Pulse Resp BP Pulse Ox O2 Del Method 02/12/24 20:45 Room Air 02/12/24 20:45 36.9 C 82 89 16 135/72 95 Room Air 02/12/24 15:11 36.8 C 86 16 118/74 100 Room Air PG Care Time/CCT Total # of Minutes Spent Total Time Spent with Patient: Total time spent is greater than 50% in coordination of care (as documented) at patient's floor/unit and/or counseling patient: Coding Level of Care Code 71551 SUB INP/OBS CARE 2/35MIN Diagnoses VTE (venous thromboembolism) I82.90 Chronic atrial fibrillation I48.2 Atrial fibrillation type: chronic Pressure ulcer L89.90 Hip pain, right M25.551 Elevated bilirubin R17 Dementia F03.90 (2) Atrial fibrillation Atrial fibrillation type: chronic Qualified Code(s): I48.2 - Chronic atrial fibrillation
[2024-02-13] MEDS ORDERED: MoRPHine SULFATE 2 MG/ML CARP IV PRN (04:05)
[2024-02-13] MEDS ORDERED: MoRPHine SULFATE 4 MG/ML 1 ML CARP\\VIAL IV PRN (04:05)
[2024-02-13] MEDS: oxyCODONE HCL IR 5 MG TAB (IMMEDIATE RELEASE) PO STA (04:23)
[2024-02-13 07:56] LABS: INR 2.8 (0.9-1.1); Prothrombin Time 28.9 Seconds (9.0-12.0)
[2024-02-13] MEDS: POLYETHYLENE (MIRALAX) 17 GM PACK PO SCH (09:05)
--- NOTE | 2024-02-13 12:49 | Discharge Summary ---
Date of Service February 13, 2024 Admission HPI Per Admitting Provider Andriy is a 73-year-old female with a history of Atrial Fibrillation (On Eliquis), HFpEF, Asthma, Hypertension, GERD, Rheumatoid Arthritis, Seizure Disorder, Obesity, Anemia, and dementia who presented to the [facility] ED on 01/07/24 after home health workers noticed a wound on her RLE. She was initially noted to be in afib RVR with HR in the 120's but was otherwise stable. Labs were significant for a leukocytosis of 13 with neutrophil predominance of 10, lymphocyte count of 0.98, potassium of 3.2, and total bili of 1.8. Prior to admission the patient was given one dose of Dilaudid. At the time of the exam the patient was lying in bed and in mild distress due to pain. History is difficult to obtain as the patient often repeats herself and is focused on her chronic right hip pain. She confirms that her home healthcare worker was concerned for her LE wounds. She tells me she lives alone and her closest family is her Brother who lives in [place]. When asked, she denies headache, chest pain, SOB, nausea, vomiting, abdominal pain, dysuria, hematuria, diarrhea, and recent falls. She states that she was supposed to have her right hip replaced but this surgery was canceled "when that virus started". She was unable to tell me the month and thought the year was 2019. Per review of her last PCP note on 03/21/23 she was brought in by her mental health peer support due to right hip pain. There were significant concerns for cognitive decline and possible dementia. They explain that she has limited social support due to strained relationships with family. She was listed as very non-compliant with medications and healthcare in general. I attempted to call her Friend/emergency contact Betito Harding ([phone]), but there was no answer. On admission we will list her code status as Full Code as this was what she has previously listed as and we have been unable to reach her emergency contact. Would recommend re-addressing code status during her admission when her POA can be reached. Please refer to Dr. Ferrer's attestation for any changes to the treatment plan Principal Diagnosis Right lower extremity DVT, multiple pulmonary emboli, acute metabolic encephalopathy, right hip pain secondary to osteoarthritis Discharge Exam General-alert and oriented x3, no fevers, no chills HEENT-head atraumatic and normocephalic, pupils equal and reactive to light, extraocular muscles intact Neck-no lymphadenopathy or thyromegaly, trachea midline Chest-clear to auscultation. No rales, wheezing or rhonchi Cardiac-regular rate and rhythm, normal S1 and S2 Abdomen-normal bowel sounds, nontender, no hepatosplenomegaly Extremities-no cyanosis, clubbing, or edema. Arthritic right hip pain Neuro-cranial nerves II through XII intact, motor and sensory function within normal limits, strength symmetrical, no focal deficits Psych-tearful at times. She keeps saying she wants to go home Discharge Data Allergies Allergy/AdvReac Type Severity Reaction Status Date / Time latex Allergy Intermediate Rash, itchy Verified 03/28/23 10:40 adhesive Allergy Mild Itchy Verified 03/28/23 10:40 bacitracin Allergy Unknown Unknown Verified 03/28/23 10:40 [From Neosporin ([id number])] neomycin Allergy Unknown Unknown Verified 03/28/23 10:40 [From Neosporin ([id number])] polymyxin B Allergy Unknown Unknown Verified 03/28/23 10:40 [From Neosporin ([id number])] metoclopramide [From Reglan] AdvReac Intermediate Dyskinetic Verified 03/28/23 10:40 reaction Consultations 01/07/24 20:23 ED Decision to Admit Stat 01/10/24 16:38 Consult Orthopedic Surgery Routine Ordered Studies 01/07/24 21:21 US RUQ [US liver] Urgent US venous doppler LE BI Urgent 01/08/24 00:00 CT angio chest PE protocol Stat 01/11/24 09:59 Fluoro knee [IR inj majr joint sh,hip,kn RT] Urgent Hospital Course (1) VTE (venous thromboembolism): She presented with multiple pulmonary emboli and evidence of right lower extremity DVT. She is now on Coumadin therapy and INR therapeutic at 2.8. (2) Atrial fibrillation: hx of paroxysmal afib presented in RVR , rate controlled and on coumadin . (3) Pressure ulcer: Patient presents with with multiple, chronic-appearing pressure ulcers on the posterior left thigh and sacrum . Now healed and resolved (4) Hip pain, right: Due to degenerative joint disease. Orthopedic consultation and recommendations appreciated. Prednisone tapering dose has been ordered. Oxycodone and Lidoderm patch have been discontinued (5) Elevated bilirubin: Mild. Asymptomatic. No associated liver enzyme elevations. This could represent Gilbert's disease (6) Dementia: Stable. Supportive care. Psychiatry consultation and recommendations appreciated. (7) Chronic diastolic CHF (congestive heart failure): Stable. Monitor intake and output. Continue current medical management Plan Discharge to [facility] today, February 12 Total Time Total Time Spent Total Time Spent (In Minutes): 45 minutes Discharge Plan Discharge Items Patient Disposition: Transfer [facility] Fac Reason For Visit: LE WOUNDS, HIP PAIN Discharge Diagnosis: Right lower extremity DVT, multiple bilateral pulmonary emboli, acute metabolic encephalopathy, right hip pain due to underlying degenerative joint disease Activity: Resume your previous activity Non-emergency contact: Primary Care Provider Call non-emergency contact if: your symptoms worsen Follow-up/Referrals: PCP,NO [Primary Care Provider] - Diet: Regular and Heart Healthy Addtl Attending Provider Instructions: INR every Sunday and Sunday with adjustment of Coumadin dosage to maintain INR between 2.0 and 3.0. Take prednisone in a tapering dose fashion as directed until gone Addtl Faculty Administrator Provider Instructions: Orthopedic discharge instructions: Weight bearing as tolerated with walker/assistance Physical therapy/occupational therapy Ice PRN Pain control Follow up outpatient as needed Pending Studies at Discharge: No Stand-Alone Forms: My [facility] [place] [employer] Skilled Items Patient informed of condition?: Yes DNR: Yes Discharge Level of Care: Skilled Communicable Disease: No Discharge Prognosis: Stable Lines: None Urinary Catheter: No Medications and DC Order Prescriptions: New prednisone 10 mg Tablet See Rx Instructions .ROUTE .COMPLEX Qty: 12 0RF Rx Instructions: 10 mg orally 3 times a day for 2 days, then 10 mg twice a day for 2 days, then 10 mg once a day for 2 days, then stop warfarin 2 mg Tablet 2 mg PO MoWeFr@1600 Qty: 30 0RF warfarin 1 mg Tablet 1.5 mg PO [id number]@1600 Qty: 30 0RF sennosides-docusate sodium [Senokot-S] 8.6-50 mg Tablet 2 tab PO QAM Qty: 0 0RF polyethylene glycol 3350 [Miralax] 17 gram Powder In Packet 17 g PO DAILY Qty: 0 0RF Continued diclofenac sodium 1 % gel 1 ea TOPICAL TID MDD 16 grams Qty: 100 5RF Rx Instructions: apply to single joint (DME) Wheelchair (Manual) Device See Rx Instructions .Route Qty: 1 0RF Rx Instructions: please size accordingly (DME) Ultra-Light Rollator Misc See Rx Instructions .Route Qty: 1 0RF Rx Instructions: As directed albuterol sulfate 90 mcg/actuation HFA aerosol inhaler 2 puff inhalation QID PRN (Reason: asthma) Qty: 3 3RF fluticasone propionate [Flonase Allergy Relief] 50 mcg/actuation spray,suspension 1 spray intranasal DAILY Qty: 16 5RF Rx Instructions: administer into each nostril potassium chloride 10 mEq tablet extended release 20 meq PO .COMPLEX Qty: 360 3RF Rx Instructions: 20 mEq orally 8am and 8pm ; polyethylene glycol 3350 [Miralax] 17 gram/dose powder 17 g PO DAILY (DME) [facility]ructions .Route Qty: 1 0RF Rx Instructions: [facility] BED FOR PAIN MANAGEMENT AND POSITIONING. LENGTH OF NEED: 99 acetaminophen [Tylenol] 325 mg Tablet 650 mg PO Q4 PRN (Reason: Pain) docusate sodium 100 mg Capsule 100 mg PO BID furosemide 40 mg tablet 40 mg PO .DAILY AT 8 AM famotidine 20 mg tablet 20 mg PO .DAILY AT 8 AM Discontinued Eliquis 5 mg tablet 5 mg PO .COMPLEX Qty: 180 3RF Rx Instructions: 5 mg orally 8am and 8pm ; Discharge Orders: Discharge Order (Routine); Ordered 02/13/24 Ordered By: Danny Barcenas Admission Data Admit Date/Time: 01/07/24 21:00 Attending Provider: Danny Barcenas Admit Provider: Jorge Luis Ferrer Primary Care Provider: PCP,NO Other Providers: [facility]; [place], [place]; Jorge Luis Ferrer; Kurt Figueroa; Palomo Calvin; Marcelo Yusuf; Luz Melgoza; Lillian Badillo; Axel Pate; Van Ornelas; Shree More; Shree Abreu; Shivani Gregg; Rahul Pinzon; Moira Coats; Zhanna Nesbitt; Damion Villegas; Sotero Coronado; Dallas Hernandez Coding Level of Care Code 27162 INP/OBS DISCH >30 MIN Diagnoses VTE (venous thromboembolism) I82.90 Chronic atrial fibrillation I48.2 Atrial fibrillation type: chronic Pressure ulcer L89.90 Hip pain, right M25.551 Elevated bilirubin R17 Dementia F03.90 Chronic diastolic CHF (congestive heart failure) I50.32
[2024-02-13] MEDS: predniSONE 10 MG TABLET PO SCH (14:20)
== END 2024-02-13 15:25 | DRG 299 ==
LOC: ED 14:51 → SUATTDRO 21:00 → EDINP 21:00 → 2N 01-08 00:27 → 3W 01-19 16:03